=== PATIENT | female | born 1945 | race Caucasian/White ===

== ENCOUNTER 2017-02-23 16:15 | Outpatient (CLI) | payer MEDICARE | END 2017-02-23 16:16 | disposition home or self-care (01) | DX: Z79.899 Other long term (current) drug therapy (principal); M32.9 Systemic lupus erythematosus, unspecified ==

== ENCOUNTER 2017-04-10 13:40 | Emergency (ER) | payer MEDICARE ==
[2017-04-10 13:53] VITALS: BP 131/81
--- NOTE | 2017-04-10 14:24 | ED Physician Documentation ---
History of Present Illness - Stated complaint Stated Complaint: LT SHOULDER PX - Chief complaint Chief Complaint: Ext Problem - History obtained from History obtained from: Patient, Family - History of Present Illness Timing: How many weeks ago (1) Pain level max: 8 Pain level now: 5 Quality: aching, dull pain Improved by: rest Worsened by: movement - Additonal information Additional information: Patient is a 71-year-old female with complicated past medical history including breast cancer that had spread to 7 out of 15 lymph nodes in the left axilla. She was placed on chemotherapy and had radiation therapy to that left shoulder as well. Since that time she has had her left hip replaced, bilateral knees and right shoulder replaced. They wanted to replace her left shoulder, but were not sure that there was enough bone to hold a prosthesis in place. She was washing her hair approximately 1 week ago and felt a pop in the left shoulder. Now has bruising over that shoulder and down the left humerus. She contacted her orthopedist who is currently on vacation and was told to come here for x-rays. She also noticed dark stools 2 this week. No chest pain, shortness of breath, no lightheadedness. Review of Systems Constitutional: denies: Fever, Chills Nose: denies: Rhinorrhea / runny nose, Congestion Throat: denies: Sore throat Cardiac: denies: Chest pain / pressure Respiratory: denies: Cough GI: reports: Bloody / black stool (black stool for 2 days). denies: Abdominal Pain, Nausea, Vomiting, Diarrhea, Hematemesis Skin: denies: Rash Musculoskeletal: denies: Neck pain, Back pain Neurologic: denies: Headache PD PAST MEDICAL HISTORY - Past Medical History Past Medical History: Yes Other Past Medical History: lupus. breast ca - Past Surgical History Past Surgical History: Yes Ortho: Hip replacement, Shoulder arthroplasty - Present Medications Home Medications: Ambulatory Orders Medication Instructions Recorded Confirmed Candesartan Cilexetil 1 tab PO .FREQ 04/10/17 04/10/17 Carvedilol 50 mg PO DAILY 04/10/17 04/10/17 Felodipine [Felodipine ER] 1 tab PO DAILY 04/10/17 04/10/17 Hydroxychloroquine [Plaquenil] 400 mg PO DAILY 04/10/17 04/10/17 Lorazepam [Ativan] 1 tab PO TID 04/10/17 04/10/17 Omeprazole [PriLOSEC] 1 tab PO DAILY 04/10/17 04/10/17 Potassium Chloride 2.5 tab PO DAILY 04/10/17 04/10/17 Sertraline [Zoloft] 100 mg PO DAILY 04/10/17 04/10/17 - Allergies Allergies/Adverse Reactions: Allergies Allergy/AdvReac Type Severity Reaction Status Date / Time codeine Allergy Unknown Verified 04/10/17 13:53 prochlorperazine Allergy Unknown Verified 04/10/17 13:53 [From Compazine] prochlorperazine edisylate * Allergy Unknown Verified 04/10/17 13:53 [From Compazine] prochlorperazine maleate * Allergy Unknown Verified 04/10/17 13:53 [From Compazine] - Social History Does the pt smoke?: No Smoking Status: Never smoker Does the pt drink ETOH?: Yes Does the pt have substance abuse?: No - Immunizations Immunizations: TDAP >10years/unknown PD ED PE NORMAL - Vitals Vital signs reviewed: Yes - General General: Alert and oriented X 3, No acute distress - HEENT HEENT: Atraumatic, PERRL, Moist mucous membranes - Neck Neck: Supple, no meningeal sign, No bony TTP - Cardiac Cardiac: RRR - Respiratory Respiratory: No respiratory distress, Clear bilaterally - Abdomen Abdomen: Soft, Non tender, Non distended - Rectal Rectal: Other (normal rectal exam. Hemoccult negative. QC passed. 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 Crepitus with ROM of the glenohumeral joint. mild TTP over the anterior aspect of the glenohumeral joint. NVI.) - Neuro Neuro: Alert and oriented X 3 - Psych Psych: Normal mood, Normal affect Results - Vitals Vitals: Vital Signs - 24 hr 04/10/17 13:45 Temperature 37.3 C Heart Rate 68 Respiratory 18 Rate Blood Pressure 131/81 H O2 Saturation 100 Oxygen O2 Source Room air - Labs Labs: Laboratory Tests 04/10/17 04/10/17 04/10/17 14:30 14:30 14:30 WBC 3.7 L RBC 3.87 L Hgb 12.2 Hct 35.5 L MCV 91.8 MCH 31.5 H MCHC 34.3 RDW 13.5 Plt Count 215 MPV 7.6 L Neut # 2.5 Lymph # 0.6 L Sebastian # 0.4 Eos # 0.1 Baso # 0.0 Absolute Nucleated RBC 0.00 Nucleated RBCs 0.0 Manual Slide Review Indicated WBC Morphology 1+ REACTIVE LYMPHS Platelet Estimate NORMAL (130-450,000) Platelet Morphology NORMAL APPEARANCE RBC Morph Micro Appear NORMAL APPEARANCE PT 12.6 INR 1.1 APTT 30.2 Sodium 136 Potassium 4.6 Chloride 105 Carbon Dioxide 25 Anion Gap 6.0 BUN 24 H Creatinine 0.8 Estimated GFR (MDRD) 71 L Glucose 106 H Calcium 9.4 Total Bilirubin 0.8 AST 28 ALT 21 Alkaline Phosphatase 95 Total Protein 6.7 Albumin 4.3 Globulin 2.4 Albumin/Globulin Ratio 1.8 Lipase 32 - Rads (name of study) L shoulder xray Radiology: Prelim report reviewed, EMP read contemporaneously, See rad report ( No evidence of acute osseous abnormality. 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 No acute findings on x-ray. Placed in a sling and swath for comfort. Hemoccult testing of the stool is negative. Her hemoglobin is at her normal baseline levels. She declines any pain medication here or for home. She will follow-up with her doctor and her orthopedist this week for further evaluation and determination of what treatment they can provide her shoulder. Patient and family counseled regarding signs and symptoms for which I believe and urgent re- evaluation would be necessary. Patient with good understanding of and agreement to plan and is comfortable going home at this time This document was made in part using voice recognition software. While efforts are made to proofread this document, sound alike and grammatical errors may occur. Departure - Departure Disposition: 01 Home, Self Care Clinical Impression: Shoulder injury Qualifiers: Encounter type: initial encounter Laterality: left Qualified Code(s): S49.92XA - Unspecified injury of left shoulder and upper arm, initial encounter Instructions: ED Shoulder Pain [facility] Follow-Up: Samir Kearns MD [Primary Care Provider] - Within 1 week Comments: Wear the sling for the next 2-3 days. Return if you worsen. Start to gently move her shoulder after that. You do need to follow-up with your doctor and likely orthopedics for further evaluation. There are no acute findings on her x -ray today. If you continue to have dark stools, you should also be reevaluated. The testing for blood in your stool today was negative. Your blood pressure was elevated today on check in to the emergency department. This does not mean that you have hypertension, it is a common phenomenon to check into the emergency department and have elevated blood pressure. I recommend that you see your primary care physician within the week to have it rechecked when you're feeling better. Discharge Date/Time: 04/10/17 15:40
[2017-04-10 14:51] LABS: BASOPHILS % (AUTO) 1.1 %; EOSINOPHILS # (AUTO) 0.1 10^3/uL (0.0-0.7); HCT - HEMATOCRIT 35.5 % (37.0-47.0); HGB - HEMOGLOBIN 12.2 g/dL (12.0-16.0); LYMPHOCYTES # (AUTO) 0.6 10^3/uL (1.5-3.5); LYMPHOCYTES % (AUTO) 15.6 %; MEAN CORPUSCULAR HEMOGLOBIN 31.5 pg (27.0-31.0); MEAN CORPUSCULAR HGB CONC 34.3 g/dL (32.0-36.0); MEAN CORPUSCULAR VOLUME 91.8 fL (81.0-99.0); MEAN PLATELET VOLUME 7.6 fL (7.9-10.8); MONOCYTES # (AUTO) 0.4 10^3/uL (0.0-1.0); MONOCYTES % (AUTO) 10.5 %; NEUTROPHILS # (AUTO) 2.5 10^3/uL (1.5-6.6); NEUTROPHILS % (AUTO) 68.8 %; RED BLOOD COUNT 3.87 10^6/uL (4.20-5.40); RED CELL DISTRIBUTION WIDTH 13.5 % (12.0-15.0); UNCORRECTED WHITE BLOOD COUNT 3.7 x10^3/uL; WHITE BLOOD COUNT 3.7 x10^3/uL (4.8-10.8)
[2017-04-10 14:59] LABS: INR 1.1 (0.8-1.2); PT - PROTHROMBIN TIME 12.6 secs (9.9-12.6)
[2017-04-10 15:02] LABS: ALBUMIN/GLOBULIN RATIO 1.8 (1.0-2.2); BILIRUBIN,TOTAL 0.8 mg/dL (0.2-1.0); CALCIUM 9.4 mg/dL (8.5-10.3); CREATININE 0.8 mg/dL (0.4-1.0); POTASSIUM 4.6 mmol/L (3.5-5.0); TOTAL PROTEIN 6.7 g/dL (6.7-8.2)
[2017-04-10 15:06] LABS: PARTIAL THROMBOPLASTIN TIME 30.2 secs (24.9-33.3)
--- NOTE | 2017-04-10 15:16 | XRAY Preliminary Report ---
Exam: XR Humerus LT IMPRESSION: 1. No acute fracture or dislocation of the humerus. 2. Irregular sclerosis of the humeral head is noted which could be secondary to degenerative change. Infiltrative process such as metastasis is also possibility, although thought to be less likely. [facility] SITE ID: [id number]
--- NOTE | 2017-04-10 15:17 | XRAY Preliminary Report ---
Exam: XR Shoulder 3 View LT IMPRESSION: 1. No evidence of acute osseous abnormality. 2. 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 [facility] SITE ID: [id number]
--- NOTE | 2017-04-10 15:18 | XRAY Report ---
EXAM: LEFT HUMERUS RADIOGRAPHY EXAM DATE: 04/10/2017 03:06 PM. CLINICAL HISTORY: L humerus pain, ecchymosis. COMPARISON: None. TECHNIQUE: 2 views. FINDINGS: Bones: No acute fracture lines are seen. Irregular sclerosis with deformity at the humeral head may r epresent degenerative change. No focal destructive lesion is seen. Joints: Glenohumeral irregularity is noted. AC joint appears unremarkable. Soft Tissues: Normal. No soft tissue swelling. IMPRESSION: 1. No acute fracture or dislocation of the humerus. 2. Irregular sclerosis of the humeral head is noted which could be secondary to degenerative change. Infiltrative process such as metastasis is also possibility, although thought to BE less likely. [facility] Referring Provider Line: [phone] SITE ID: [id number]
--- NOTE | 2017-04-10 15:20 | XRAY Report ---
EXAM: LEFT SHOULDER RADIOGRAPHY EXAM DATE: 04/10/2017 03:05 PM. CLINICAL HISTORY: L shoulder pain x 1 week. COMPARISON: None. TECHNIQUE: 3 views. FINDINGS: Bones: No evidence of fracture. Joints: Severe chronic arthropathy of the shoulder is present characterized by marked remodeling of t he humeral head and glenoid. Little proliferative changes are seen, but probable chronic erosions are noted. Soft tissues: The visualized hemithorax is unremarkable. No soft tissue swelling. IMPRESSION: 1. No evidence of acute osseous abnormality. 2. 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 [facility] Referring Provider Line: [phone] SITE ID: [id number]
[2017-04-10 15:45] LABS: PLATELET ESTIMATE, MANUAL NORMAL (130-450,000) (NORMAL); PLATELET MORPHOLOGY NORMAL APPEARANCE (NORMAL); WBC MORPHOLOGY (MULTIPLE) 1+ REACTIVE LYMPHS (NORMAL)
== END 2017-04-10 15:40 | disposition home or self-care (01) ==
LOC: ED 13:40
DX: S49.92XA Unspecified injury of left shoulder and upper arm, initial encounter (principal); X58.XXXA Exposure to other specified factors, initial encounter; Y93.E8 Activity, other personal hygiene; C50.919 Malignant neoplasm of unspecified site of unspecified female breast; C77.3 Secondary and unspecified malignant neoplasm of axilla and upper limb lymph nodes; K92.1 Melena; R03.0 Elevated blood-pressure reading, without diagnosis of hypertension; Z92.21 Personal history of antineoplastic chemotherapy; Z92.3 Personal history of irradiation; Z96.653 Presence of artificial knee joint, bilateral; Z96.611 Presence of right artificial shoulder joint
CPT/HCPCS: 36415; 80053; 83690; 85025; 85610; 85730; 99283

== ENCOUNTER 2017-05-20 15:22 | Outpatient (CLI) | payer MEDICARE ==
[2017-05-20 16:05] LABS: BASOPHILS % (AUTO) 0.8 %; EOSINOPHILS # (AUTO) 0.2 10^3/uL (0.0-0.7); EOSINOPHILS % (AUTO) 4.4 %; HCT - HEMATOCRIT 36.9 % (37.0-47.0); HGB - HEMOGLOBIN 12.6 g/dL (12.0-16.0); LYMPHOCYTES # (AUTO) 0.8 10^3/uL (1.5-3.5); LYMPHOCYTES % (AUTO) 18.3 %; MEAN CORPUSCULAR HEMOGLOBIN 31.9 pg (27.0-31.0); MEAN CORPUSCULAR VOLUME 93.9 fL (81.0-99.0); MEAN PLATELET VOLUME 7.8 fL (7.9-10.8); MONOCYTES # (AUTO) 0.4 10^3/uL (0.0-1.0); MONOCYTES % (AUTO) 9.4 %; NEUTROPHILS % (AUTO) 67.1 %; NUCLEATED RED BLOOD CELLS AUTO 0.1 /100WBC; RED BLOOD COUNT 3.93 10^6/uL (4.20-5.40); UNCORRECTED WHITE BLOOD COUNT 4.5 x10^3/uL; WHITE BLOOD COUNT 4.5 x10^3/uL (4.8-10.8)
[2017-05-20 16:06] LABS: ALBUMIN/GLOBULIN RATIO 1.6 (1.0-2.2); BILIRUBIN,TOTAL 0.6 mg/dL (0.2-1.0); BUN - BLOOD UREA NITROGEN 32 mg/dL (6-20); CALCIUM 9.2 mg/dL (8.5-10.3); CARBON DIOXIDE - CO2 25 mmol/L (21-32); CHLORIDE 101 mmol/L (101-111); CREATININE 0.9 mg/dL (0.4-1.0); GFR - MDRD 62 (>89); GLUCOSE 89 mg/dL (70-100); POTASSIUM 4.6 mmol/L (3.5-5.0); SODIUM 133 mmol/L (135-145); TOTAL PROTEIN 7.1 g/dL (6.7-8.2)
[2017-05-20 16:49] LABS: BILIRUBIN,URINE NEGATIVE (NEGATIVE)
== END 2017-05-20 15:23 | disposition home or self-care (01) ==
LOC: LAB 15:22
PROVIDERS: ATTEND Internal Medicine
DX: M32.9 Systemic lupus erythematosus, unspecified (principal); Z79.899 Other long term (current) drug therapy
CPT/HCPCS: 36415; 80053; 81003; 85025; 85651; 86140

== ENCOUNTER 2017-08-08 16:44 | Outpatient (CLI) | payer MEDICARE | END 2017-08-08 16:45 | disposition critical access hospital (66) | LOC: EMS 16:44 | PROVIDERS: ATTEND Surgery | DX: R55 Syncope and collapse (principal); R11.0 Nausea | CPT/HCPCS: A0425; A0429 ==

== ENCOUNTER 2017-08-08 16:54 | Emergency (ER) | payer MEDICARE ==
--- NOTE | 2017-08-08 17:12 | ED Physician Documentation ---
PD HPI SYNCOPE - Stated complaint Stated Complaint: NEAR SYNCOPE - History obtained from History obtained from: Patient - History of Present Illness Witnessed: Witnessed (caregiver) Timing - onset: Today Duration: Minutes Preceding symptoms: Generalized weakness. No: Headache, Chest pain, Palpitations Associated symptoms: Dyspnea. No: Headache, Chest pain, Palpitations Contributing factors: Just stood up, Other (UTI symptoms). No: Recent med change, Decreased PO intake Injury occurred: No: Fell, Head injury Similar symptoms before: No diagnosis Recently seen: Clinic (UTI) Review of Systems Ten Systems: 10 systems reviewed and negative Constitutional: denies: Fever, Chills Nose: denies: Rhinorrhea / runny nose, Congestion Throat: denies: Sore throat Cardiac: denies: Chest pain / pressure, Palpitations Respiratory: denies: Cough GI: reports: Nausea. denies: Abdominal Pain, Vomiting, Diarrhea : reports: Dysuria Skin: denies: Rash, Lesions Neurologic: reports: Generalized weakness. 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 Psych: Anxiety - Past Surgical History Past Surgical History: Yes General: Other Ortho: Hip replacement, Shoulder arthroplasty - Present Medications Home Medications: Ambulatory Orders Medication Instructions Recorded Confirmed Candesartan Cilexetil 1 tab PO .FREQ 04/10/17 08/08/17 Carvedilol 50 mg PO DAILY 04/10/17 08/08/17 Felodipine [Felodipine ER] 1 tab PO DAILY 04/10/17 08/08/17 Hydroxychloroquine [Plaquenil] 400 mg PO BID 04/10/17 08/08/17 Lorazepam [Ativan] 1 tab PO TID 04/10/17 08/08/17 Omeprazole [PriLOSEC] 1 tab PO DAILY 04/10/17 08/08/17 Potassium Chloride 2.5 tab PO DAILY 04/10/17 08/08/17 Sertraline [Zoloft] 100 mg PO DAILY 04/10/17 08/08/17 - Allergies Allergies/Adverse Reactions: Allergies Allergy/AdvReac Type Severity Reaction Status Date / Time codeine Allergy Unknown Verified 08/08/17 17:15 prochlorperazine Allergy Unknown Verified 08/08/17 17:15 [From Compazine] prochlorperazine edisylate * Allergy Unknown Verified 08/08/17 17:15 [From Compazine] prochlorperazine maleate * Allergy Unknown Verified 08/08/17 17:15 [From Encore Alertazine] - Social History Does the pt smoke?: No Smoking Status: Never smoker Does the pt drink ETOH?: Yes Does the pt have substance abuse?: No - Immunizations Immunizations: TDAP >10years/unknown PD ED PE NORMAL - Vitals Vital signs reviewed: Yes - General General: Alert and oriented X 3, No acute distress, Well developed/nourished - HEENT HEENT: Atraumatic, Moist mucous membranes, Pharynx benign - Neck Neck: Supple, no meningeal sign, No adenopathy - Cardiac Cardiac: RRR, No murmur - Respiratory Respiratory: Clear bilaterally - Abdomen Abdomen: Soft, Non tender - Female Female : Deferred - Rectal Rectal: Deferred - Back Back: No CVA TTP - Derm Derm: Normal color, Warm and dry - Extremities Extremities: No tenderness to palpate, No edema, No calf tenderness / cord - Neuro Neuro: Alert and oriented X 3, No motor deficit, Normal speech Results - Vitals Vitals: Oxygen O2 Source Room air - Labs Labs: Laboratory Tests 08/08/17 08/08/17 08/08/17 18:35 18:35 18:35 WBC 5.1 RBC 4.04 L Hgb 12.6 Hct 37.5 MCV 92.8 MCH 31.1 H MCHC 33.5 RDW 13.8 Plt Count 213 MPV 7.1 L Neut # 4.1 Lymph # 0.6 L [place] # 0.3 Eos # 0.1 Baso # 0.0 Absolute Nucleated RBC 0.00 Nucleated RBC % 0.0 Sodium 132 L Potassium 4.3 Chloride 98 L Carbon Dioxide 24 Anion Gap 10.0 BUN 33 H Creatinine 0.8 Estimated GFR (MDRD) 71 L Glucose 94 Calcium 9.4 Magnesium 1.9 Total Bilirubin 0.6 AST 30 ALT 24 Alkaline Phosphatase 84 Troponin I < 0.04 Total Protein 6.8 Albumin 4.4 Globulin 2.4 Albumin/Globulin Ratio 1.8 Lipase 33 Departure - Departure Disposition: 01 Home, Self Care Clinical Impression: Near syncope Condition: Stable Record reviewed to determine appropriate education?: Yes Instructions: ED Near Syncope Unkn Follow-Up: Samir Kearns MD [Primary Care Provider] - Comments: I would hold your felodipine for now. Continue other medications. Contact your primary care to discuss the idea of a Holter monitor for 7 or even the 30 day version to see if you do have any episodic abnormal rhythms. At this point would consider the idea of a overly effective blood pressure medicines and just decreased the dosing as they are. Stay well-hydrated. Recheck if recurrent or worsening symptoms. Discharge Date/Time: 08/08/17 20:30
[2017-08-08 18:41] LABS: BASOPHILS % (AUTO) 0.5 %; EOSINOPHILS # (AUTO) 0.1 10^3/uL (0.0-0.7); EOSINOPHILS % (AUTO) 2.3 %; HCT - HEMATOCRIT 37.5 % (37.0-47.0); HGB - HEMOGLOBIN 12.6 g/dL (12.0-16.0); LYMPHOCYTES # (AUTO) 0.6 10^3/uL (1.5-3.5); LYMPHOCYTES % (AUTO) 11.1 %; MEAN CORPUSCULAR HEMOGLOBIN 31.1 pg (27.0-31.0); MEAN CORPUSCULAR HGB CONC 33.5 g/dL (32.0-36.0); MEAN CORPUSCULAR VOLUME 92.8 fL (81.0-99.0); MEAN PLATELET VOLUME 7.1 fL (7.9-10.8); MONOCYTES # (AUTO) 0.3 10^3/uL (0.0-1.0); MONOCYTES % (AUTO) 6.7 %; NEUTROPHILS # (AUTO) 4.1 10^3/uL (1.5-6.6); NEUTROPHILS % (AUTO) 79.4 %; RED BLOOD COUNT 4.04 10^6/uL (4.20-5.40); RED CELL DISTRIBUTION WIDTH 13.8 % (12.0-15.0); UNCORRECTED WHITE BLOOD COUNT 5.1 x10^3/uL; WHITE BLOOD COUNT 5.1 x10^3/uL (4.8-10.8)
[2017-08-08 18:54] LABS: ALBUMIN/GLOBULIN RATIO 1.8 (1.0-2.2); BILIRUBIN,TOTAL 0.6 mg/dL (0.2-1.0); CALCIUM 9.4 mg/dL (8.5-10.3); CREATININE 0.8 mg/dL (0.4-1.0); MAGNESIUM 1.9 mg/dL (1.7-2.8); POTASSIUM 4.3 mmol/L (3.5-5.0); TOTAL PROTEIN 6.8 g/dL (6.7-8.2)
[2017-08-08 19:13] VITALS: BP 139/82
== END 2017-08-08 20:30 | disposition home or self-care (01) ==
LOC: EDBD → ED 16:54
DX: R55 Syncope and collapse (principal); M32.9 Systemic lupus erythematosus, unspecified; Z85.3 Personal history of malignant neoplasm of breast
CPT/HCPCS: 36415; 80053; 83690; 83735; 84484; 85025; 93005; 99283; 99284

== ENCOUNTER 2022-08-10 16:31 | Emergency (ER) | payer MEDICARE ==
[2022-08-10] MEDS ORDERED: METOPROLOL 5 MG/5 ML VIAL IVP STA (17:05)
--- NOTE | 2022-08-10 17:07 | ED Physician Documentation ---
PD HPI DYSPNEA - Stated complaint Stated Complaint: IRREGULAR HR/TROUBLE BREATHING - History obtained from History obtained from: Patient - Additional information Additional information: 76-year-old woman with history of hypertension, hyperlipidemia, lupus, perioperative atrial fibrillation in 2012, history of ruptured diverticulitis necessitating open resection and remote history of breast cancer status postchemotherapy and radiation with resultant lymphedema on the left side presents with a weeks worth of severe exertional dyspnea with chest pressure. She denies pedal edema or calf pain. She has trouble going up and down the stai rs in her house now because of the shortness of breath. Review of Systems Ten Systems: 10 systems reviewed and negative Constitutional: reports: Fatigue Cardiac: reports: Chest pain / pressure. 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 Psych: Anxiety - Past Surgical History Past Surgical History: Yes General: Other Ortho: Hip replacement, Shoulder arthroplasty - Present Medications Home Medications: Ambulatory Orders Medication Instructions Recorded Confirmed Candesartan Cilexetil 1 tab PO .FREQ 04/10/17 08/08/17 Felodipine [Felodipine ER] 1 tab PO DAILY 04/10/17 08/08/17 Hydroxychloroquine [Plaquenil] 400 mg PO BID 04/10/17 08/08/17 Lorazepam [Ativan] 1 tab PO TID 04/10/17 08/08/17 Omeprazole [PriLOSEC] 1 tab PO DAILY 04/10/17 08/08/17 Potassium Chloride 2.5 tab PO DAILY 04/10/17 08/08/17 Sertraline [Zoloft] 100 mg PO DAILY 04/10/17 08/08/17 carvediloL [Carvedilol] 50 mg PO DAILY 04/10/17 08/08/17 - Allergies Allergies/Adverse Reactions: Allergies Allergy/AdvReac Type Severity Reaction Status Date / Time codeine Allergy Unknown Verified 08/08/17 17:15 prochlorperazine Allergy Unknown Verified 08/08/17 17:15 [From Compazine] prochlorperazine edisylate * Allergy Unknown Verified 08/08/17 17:15 [From Compazine] prochlorperazine maleate * Allergy Unknown Verified 08/08/17 17:15 [From Compazine] - Social History Does the pt smoke?: No Smoking Status: Never smoker Does the pt drink ETOH?: Yes Does the pt have substance abuse?: No - Immunizations Immunizations are current?: No Immunizations: TDAP >10years/unknown PD ED PE NORMAL - Vitals Vital signs reviewed: Yes - General General: Alert and oriented X 3, No acute distress - HEENT HEENT: PERRL, EOMI - Neck Neck: Supple, no meningeal sign, No bony TTP - Cardiac Cardiac: No murmur, Other (Irregularly irregular without murmur) - Respiratory Respiratory: No respiratory distress, Clear bilaterally - Abdomen Abdomen: Normal bowel sounds, Soft, Non tender - Back Back: No CVA TTP, No spinal TTP - Derm Derm: Normal color, Warm and dry - Extremities Extremities: No edema (Of the lower extremities), No calf tenderness / cord, Other (Lymphedema of the left upper extremity with bruising about the shoulder) - Neuro Neuro: Alert and oriented X 3, Normal speech Results - Vitals Vitals: Vital Signs - 24 hr 08/10/22 08/10/22 08/10/22 16:44 17:36 18:06 Temperature 37.2 C Heart Rate 92 88 110 H Respiratory 18 24 12 Rate Blood Pressure 153/111 H 139/96 H 152/116 H O2 Saturation 99 93 92 08/10/22 08/10/22 08/10/22 18:30 19:36 19:47 Temperature Heart Rate 81 95 Respiratory 19 17 20 Rate Blood Pressure 125/104 H O2 Saturation 93 96 Oxygen O2 Source Room air - EKG (time done) 1646 Rate: Rate (enter#) (76) Rhythm: Atrial flutter [place]: Normal Intervals: Prolonged QT (borderline qc 486) QRS: Normal Ischemia: Non specific changes. No: ST elevation c/w ischemia, ST depression 1814 Rate: Rate (enter#) (82) Rhythm: Atrial fibrillation [place]: Normal QRS: Normal Ischemia: Q waves (septal). No: ST elevation c/w ischemia, ST depression - Labs Labs: Laboratory Tests 08/10/22 08/10/22 08/10/22 17:17 17:17 17:17 WBC 5.1 RBC 3.79 L Hgb 11.8 L Hct 36.7 L MCV 96.8 MCH 31.1 H MCHC 32.2 RDW 15.0 Plt Count 231 MPV 9.0 Neut # (Auto) 3.5 Lymph # (Auto) 1.1 L Whitman # (Auto) 0.4 Eos # (Auto) 0.1 Baso # (Auto) 0.0 Absolute Nucleated RBC 0.00 Band Neuts % (Manual) Not Reportable Abnorm Lymph % (Manual) Not Reportable Nucleated RBC % 0.0 Neutrophils # (Manual) Not Reportable Lymphocytes # (Manual) Not Reportable Monocytes # (Manual) Not Reportable Eosinophils # (Manual) Not Reportable Basophils # (Manual) Not Reportable Differential Comment MANUAL=AUTO DIFF Manual Slide Review Indicated WBC Morphology 1+ TOXIC GRANULATION Platelet Estimate NORMAL (130-450,000) Platelet Morphology NORMAL APPEARANCE RBC Morph Micro Appear NORMAL APPEARANCE D-Dimer 345.0 H Sodium 136 Potassium 3.9 Chloride 100 L Carbon Dioxide 24 Anion Gap 12.0 BUN 26 H Creatinine 0.7 Estimated GFR (MDRD) 81 L Glucose 97 Calcium 9.2 Total Bilirubin 0.6 AST 37 ALT 30 Alkaline Phosphatase 111 Troponin I High Sens B-Natriuretic Peptide Total Protein 6.8 Albumin 4.3 Globulin 2.5 Albumin/Globulin Ratio 1.7 Lipase 35 TSH 08/10/22 08/10/22 08/10/22 17:17 17:17 17:17 WBC RBC Hgb Hct MCV MCH MCHC RDW Plt Count MPV Neut # (Auto) Lymph # (Auto) [place] # (Auto) Eos # (Auto) Baso # (Auto) Absolute Nucleated RBC Band Neuts % (Manual) Abnorm Lymph % (Manual) Nucleated RBC % Neutrophils # (Manual) Lymphocytes # (Manual) Monocytes # (Manual) Eosinophils # (Manual) Basophils # (Manual) Differential Comment Manual Slide Review WBC Morphology Platelet Estimate Platelet Morphology RBC Morph Micro Appear D-Dimer Sodium Potassium Chloride Carbon Dioxide Anion Gap BUN Creatinine Estimated GFR (MDRD) Glucose Calcium Total Bilirubin AST ALT Alkaline Phosphatase Troponin I High Sens 26.8 H* B-Natriuretic Peptide 630 H Total Protein Albumin Globulin Albumin/Globulin Ratio Lipase TSH 2.94 08/10/22 18:49 WBC RBC Hgb Hct MCV MCH MCHC RDW Plt Count MPV Neut # (Auto) Lymph # (Auto) [place] # (Auto) Eos # (Auto) Baso # (Auto) Absolute Nucleated RBC Band Neuts % (Manual) Abnorm Lymph % (Manual) Nucleated RBC % Neutrophils # (Manual) Lymphocytes # (Manual) Monocytes # (Manual) Eosinophils # (Manual) Basophils # (Manual) Differential Comment Manual Slide Review WBC Morphology Platelet Estimate Platelet Morphology RBC Morph Micro Appear D-Dimer Sodium Potassium Chloride Carbon Dioxide Anion Gap BUN Creatinine Estimated GFR (MDRD) Glucose Calcium Total Bilirubin AST ALT Alkaline Phosphatase Troponin I High Sens 39.4 H* B-Natriuretic Peptide Total Protein Albumin Globulin Albumin/Globulin Ratio Lipase TSH - Rads (name of study) Single view chest x-ray demonstrates cardiomegaly and pulmonary vascular congestion with mild pulmonary edema. Radiology: EMP read contemporaneously PD MEDICAL DECISION MAKING - ED course ED course: 76-year-old woman who had an episode of perioperative atrial fibrillation 10 years ago now presents with breathlessness for the last week or so. She is in atrial flutter here and her x-ray shows some cardiomegaly with evidence of CHF corroborated by an elevated BNP of 630. Her CBC is basically normal save for modest anemia with a hemoglobin of 11.8, and she does have a positive D-dimer at 345. She was initially administered some metoprolol and this was followed by 40 mg of IV Lasix given the evidence of CHF. At about 6:15 PM I reassessed her and she was having some increasing chest pressure and her EKG will be repeated. Her troponin is very modestly elevated at 26 with a high end of normal being about 20. Given the elevated D-dimer I will send her for CT angiogram although my pretest probability suspicion for pulmonary embolism is low. She is concerned about anticoagulation because she already bruises easily. I discussed the case by phone with Dr. Yeimy Gill, who is partners with her pump technician, Dr. Rollins at [facility]. He recommended transfer to a cath capable facility given the rising troponin and treatment for non-STEMI in the interim. Her regular meds were ordered as well as Lovenox. She declined aspirin therapy as she takes Excedrin which contains aspirin daily. I discussed with her that given the need for specialty hospital transfer and current bed capacity in [facility] the length of stay in the emergency department pending transfer would likely be measured in days. - Critical Care Time(min): 40 Time Includes: Direct patient care, Review records, Reassess patient, Document care, Coordinate care, Medical consult, Family consult for tx dec Data interpretation: Labs, Pulse ox Procedures included in critical care time: Peripheral IV Procedures excluded from critical care time: EKG Departure - Departure Disposition: 02 Transfer Acute Care Hosp Clinical Impression: NSTEMI (non-ST elevated myocardial infarction), Afib, CHF (congestive heart failure) Condition: Serious
[2022-08-10 17:25] LABS: BASOPHILS % (AUTO) 0.4 %; EOSINOPHILS # (AUTO) 0.1 10^3/uL (0.0-0.7); EOSINOPHILS % (AUTO) 2.6 %; HCT - HEMATOCRIT 36.7 % (37.0-47.0); HGB - HEMOGLOBIN 11.8 g/dL (12.0-16.0); LYMPHOCYTES # (AUTO) 1.1 10^3/uL (1.5-3.5); LYMPHOCYTES % (AUTO) 21.2 %; MEAN CORPUSCULAR HEMOGLOBIN 31.1 pg (27.0-31.0); MEAN CORPUSCULAR HGB CONC 32.2 g/dL (32.0-36.0); MEAN CORPUSCULAR VOLUME 96.8 fL (81.0-99.0); MONOCYTES # (AUTO) 0.4 10^3/uL (0.0-1.0); MONOCYTES % (AUTO) 7.3 %; NEUTROPHILS # (AUTO) 3.5 10^3/uL (1.5-6.6); NEUTROPHILS % (AUTO) 68.3 %; PLT - PLATELET COUNT 231 10^3/uL (130-450); RED BLOOD COUNT 3.79 10^6/uL (4.20-5.40); WHITE BLOOD COUNT 5.1 x10^3/uL (4.8-10.8)
[2022-08-10 17:34] LABS: SLIDE REVIEW? Indicated
--- NOTE | 2022-08-10 17:38 | XRAY Report ---
PROCEDURE: Chest 1 View X-Ray INDICATIONS: Chest Pain TECHNIQUE: One view of the chest was acquired. COMPARISON: None FINDINGS: Surgical changes and devices: There is prior right shoulder arthroplasty with postsurgical changes.. Lungs and pleura: There is pulmonary vascular congestion. Mild pulmonary edema is also seen. No defi nite focal infiltrate. No pleural effusion or gross pneumothorax.. Mediastinum: Mildly tortuous thoracic aorta is seen. Heart size is enlarged. Bones and chest wall: No suspicious bony lesions. Severe left glenohumeral joint osteoarthritic ndiaye ges are noted. Overlying soft tissues appear unremarkable. IMPRESSION: 1. Cardiomegaly and pulmonary vascular congestion with mild pulmonary edema. No definite focal infilt rate. No pleural effusion or pneumothorax. 2. Incidentally noted of severe left shoulder joint osteoarthritis. Prior right shoulder arthroplasty . Reviewed by: Amarjit Harrison MD on 08/10/2022 5:36 PM PDT Approved by: Amarjit Harrison MD on 08/10/2022 5:36 PM PDT Station ID: [id number]
[2022-08-10 17:55] LABS: DIFFERENTIAL COMMENT MANUAL=AUTO DIFF; PLATELET ESTIMATE, MANUAL NORMAL (130-450,000) (NORMAL); PLATELET MORPHOLOGY NORMAL APPEARANCE (NORMAL); RBC MORPHOLOGY (MULTIPLE) NORMAL APPEARANCE (NORMAL); WBC MORPHOLOGY (MULTIPLE) 1+ TOXIC GRANULATION (NORMAL)
[2022-08-10 18:06] LABS: ALBUMIN 4.3 g/dL (3.2-5.5); ALBUMIN/GLOBULIN RATIO 1.7 (1.0-2.2); BILIRUBIN,TOTAL 0.6 mg/dL (0.2-1.0); CALCIUM 9.2 mg/dL (8.5-10.3); CREATININE 0.7 mg/dL (0.4-1.0); POTASSIUM 3.9 mmol/L (3.5-5.0); TOTAL PROTEIN 6.8 g/dL (6.7-8.2)
[2022-08-10] MEDS ORDERED: FUROSEMIDE 40 MG/4 ML VIAL IVP STA (18:07)
[2022-08-10] MEDS ORDERED: iohexoL-300 100 ML VIAL ONE (18:29)
[2022-08-10] MEDS ORDERED: ASPIRIN CHEW 81 MG TABLET PO STA (19:23)
[2022-08-10] MEDS: ATORVASTATIN 40 MG TABLET PO SCH (19:52)
--- NOTE | 2022-08-10 20:08 | CT Report ---
PROCEDURE: ANGIO CHEST W/WO INDICATIONS: Dyspnea, high D-dimer, PE protocol CONTRAST: Omni 300 80ml TECHNIQUE: After the administration of intravenous contrast, 2 mm axial images were acquired from the pulmonary apices to the posterior costophrenic angles during the arterial phase. In addition, 1 mm lung kernel and 5 mm soft tissue kernel reconstructions were performed. 3-dimensional coronal oblique maximum int ensity projection (MIP) reformats, 8 mm axial MIP, and 5 mm coronal and sagittal MPR reformats were t hen performed through the thorax. For radiation dose reduction, the following was used: automated exp osure control, adjustment of mA and/or kV according to patient size. COMPARISON: Chest radiograph on the same day. FINDINGS: Image quality: Excellent. Pulmonary arteries: Pulmonary arteries are normal in size, and demonstrate no intraluminal filling d efects to suggest central pulmonary embolism. Lungs and pleura: There is biapical scarring. Scattered atelectasis in periphery of bilateral lung fi elds are seen. Hazy groundglass opacities are also seen scattered in bilateral lung mackey. Interstit ial reticular nodular thickening in periphery of bilateral lung mackey also seen. No pleural effusion s or pneumothorax. Central and peripheral airways are patent. Mediastinum: Heart size is enlarged, without pericardial effusion. Prominent mediastinal and hilar l ymph nodes are seen. Thoracic aorta is normal in caliber and enhancement. Esophagus is normal in kemal iber, with a small to moderate-sized hiatal hernia. Bones and chest wall: No suspicious bony lesions. No suspicious bony lesion. No acute vertebral body compression fracture. Degenerative disc disease throughout thoracic spine is seen. No axillary or harper praclavicular adenopathy. The thyroid is normal in size and there are no incidental findings. Abdomen: Visualized upper abdominal solid organs appear normal in the early arterial phase of enhanc ement. IMPRESSION: 1. No evidence of pulmonary emboli. 2. Interstitial reticular nodular thickening in periphery of bilateral lung mackey suggestive of deve loping pulmonary fibrosis. Hazy groundglass opacities scattered in bilateral lung mackey suggestive o f of mild pulmonary edema versus pneumonitis. No focal infiltrate. No pleural effusion or pneumothora x. 3. Cardiomegaly. Enlarged mediastinal and hilar lymph nodes which is nonspecific, and may represent m ild reactive inflammatory nodes. Small to moderate size hiatal hernia. CLINICAL RECOMMENDATION STATEMENTS: In patients <35 years with an ITN detected on CT, MRI, or extrathyroidal ultrasound, the Committee re commends further evaluation with dedicated thyroid ultrasound if the nodule is "e1 cm and has no susp icious imaging features, and if the patient has normal life expectancy. In patients "e35 years with an ITN detected on CT, MRI, or extrathyroidal ultrasound, the Committee r ecommends further evaluation with dedicated thyroid ultrasound if the nodule is "e1.5 cm and has no s uspicious imaging features, and if the patient has normal life expectancy. (ACR, 2014) Reviewed by: Amarjit Harrison MD on 08/10/2022 8:07 PM PDT Approved by: Amarjit Harrison MD on 08/10/2022 8:07 PM PDT Station ID: [id number]
[2022-08-10] MEDS: HYDROXYCHLOROQUINE 200 MG TABLET PO SCH (21:30)
[2022-08-10] MEDS: SERTRALINE 50 MG TABLET PO SCH (21:30)
[2022-08-10] MEDS: ENOXAPARIN 80 MG/0.8 ML SYRINGE SUBQ SCH (21:30)
[2022-08-10] MEDS: POTASSIUM CHLORIDE 20 MEQ TABLET PO SCH (21:30)
[2022-08-10] MEDS: LORazepam 1 MG TABLET PO SCH (21:30)
[2022-08-10] MEDS: carvediloL 12.5 MG TABLET PO SCH (21:58)
[2022-08-10] MEDS ORDERED: iohexoL-300 100 ML VIAL IVP ONE (23:06)
[2022-08-11] MEDS ORDERED: ONDANSETRON 4 MG/2 ML VIAL IVP STA (00:31)
[2022-08-11 05:22] LABS: BASOPHILS % (AUTO) 0.4 %; EOSINOPHILS # (AUTO) 0.2 10^3/uL (0.0-0.7); EOSINOPHILS % (AUTO) 2.7 %; HGB - HEMOGLOBIN 11.5 g/dL (12.0-16.0); LYMPHOCYTES # (AUTO) 1.6 10^3/uL (1.5-3.5); LYMPHOCYTES % (AUTO) 27.7 %; MEAN CORPUSCULAR HEMOGLOBIN 31.6 pg (27.0-31.0); MEAN CORPUSCULAR HGB CONC 32.9 g/dL (32.0-36.0); MEAN CORPUSCULAR VOLUME 96.2 fL (81.0-99.0); MEAN PLATELET VOLUME 9.2 fL (7.9-10.8); MONOCYTES # (AUTO) 0.5 10^3/uL (0.0-1.0); MONOCYTES % (AUTO) 9.6 %; NEUTROPHILS # (AUTO) 3.4 10^3/uL (1.5-6.6); NEUTROPHILS % (AUTO) 59.4 %; PLT - PLATELET COUNT 213 10^3/uL (130-450); RED BLOOD COUNT 3.64 10^6/uL (4.20-5.40); RED CELL DISTRIBUTION WIDTH 14.9 % (12.0-15.0); WHITE BLOOD COUNT 5.6 x10^3/uL (4.8-10.8)
[2022-08-11 05:29] LABS: CALCIUM 9.1 mg/dL (8.5-10.3); CREATININE 0.7 mg/dL (0.4-1.0); POTASSIUM 3.1 mmol/L (3.5-5.0)
[2022-08-11] MEDS ORDERED: POTASSIUM CHLORIDE 20 MEQ TABLET PO STA (07:23)
[2022-08-11] MEDS: amLODIPine 5 MG TABLET PO SCH (08:59)
[2022-08-11] MEDS: FUROSEMIDE 20 MG TABLET PO SCH (08:59)
[2022-08-11] MEDS: ENOXAPARIN 80 MG/0.8 ML SYRINGE SUBQ SCH ×2 (09:00→21:07)
[2022-08-11] MEDS ORDERED: ASPIRIN CHEW 81 MG TABLET PO SCH (09:00)
[2022-08-11] MEDS: carvediloL 12.5 MG TABLET PO SCH ×2 (09:00→21:06)
[2022-08-11] MEDS: LOSARTAN 50 MG TABLET PO SCH (09:00)
[2022-08-11] MEDS: PANTOPRAZOLE 40 MG TABLET PO SCH (09:00)
[2022-08-11] MEDS: ATORVASTATIN 40 MG TABLET PO SCH (09:00)
[2022-08-11] MEDS: POTASSIUM CHLORIDE 20 MEQ TABLET PO SCH ×2 (09:01→21:07)
[2022-08-11] MEDS: HYDROXYCHLOROQUINE 200 MG TABLET PO SCH ×2 (09:09→21:07)
[2022-08-11] MEDS ORDERED: ONDANSETRON ODT 4 MG TABLET TL STA (11:23)
--- NOTE | 2022-08-11 11:50 | ED Physician Documentation ---
ED Addendum - Addendum Addendum: S - Patient was seen on morning rounds. She denies having any chest pain and was able to get a little sleep last night. She denies any difficulty breathing and reports having a large amount of urination from the Lasix. O - Lungs clear, Normal heart rate - Pulses irregularly irregular. Appears comfortable. A - NSTEMI, A. fib. Hypokalemia. P - Pending transfer to facility with cardiology capabilities.Echo was also ordered for this morning.Potassium ordered for p.o. replacement
[2022-08-11] MEDS: SERTRALINE 50 MG TABLET PO SCH (21:07)
[2022-08-11] MEDS: LORazepam 1 MG TABLET PO SCH (21:07)
[2022-08-11] MEDS: ONDANSETRON ODT 4 MG TABLET TL PRN (21:13)
[2022-08-11] MEDS ORDERED: LIDOCAINE PATCH 5% TOP STA (23:41)
[2022-08-12] MEDS ORDERED: NITROGLYCERIN SL 0.4 MG TABLET SL STA (00:14)
[2022-08-12] MEDS ORDERED: MORPHINE 2 MG/ML CARPUJECT IVP STA ×6 (00:30→17:34)
[2022-08-12] MEDS: ONDANSETRON ODT 4 MG TABLET TL PRN ×3 (03:55→18:00)
[2022-08-12 05:46] LABS: BASOPHILS % (AUTO) 0.4 %; EOSINOPHILS # (AUTO) 0.1 10^3/uL (0.0-0.7); EOSINOPHILS % (AUTO) 1.9 %; HCT - HEMATOCRIT 39.7 % (37.0-47.0); HGB - HEMOGLOBIN 12.9 g/dL (12.0-16.0); LYMPHOCYTES # (AUTO) 0.8 10^3/uL (1.5-3.5); LYMPHOCYTES % (AUTO) 11.3 %; MEAN CORPUSCULAR HEMOGLOBIN 31.5 pg (27.0-31.0); MEAN CORPUSCULAR HGB CONC 32.5 g/dL (32.0-36.0); MEAN CORPUSCULAR VOLUME 97.1 fL (81.0-99.0); MEAN PLATELET VOLUME 9.1 fL (7.9-10.8); MONOCYTES # (AUTO) 0.5 10^3/uL (0.0-1.0); MONOCYTES % (AUTO) 7.1 %; NEUTROPHILS # (AUTO) 5.4 10^3/uL (1.5-6.6); PLT - PLATELET COUNT 227 10^3/uL (130-450); RED BLOOD COUNT 4.09 10^6/uL (4.20-5.40); RED CELL DISTRIBUTION WIDTH 14.6 % (12.0-15.0); WHITE BLOOD COUNT 6.8 x10^3/uL (4.8-10.8)
[2022-08-12 05:56] LABS: CALCIUM 9.2 mg/dL (8.5-10.3); CREATININE 0.6 mg/dL (0.4-1.0); POTASSIUM 3.3 mmol/L (3.5-5.0)
[2022-08-12] MEDS ORDERED: oxyCODONE 5 MG TABLET PO STA ×2 (08:13→15:00)
--- NOTE | 2022-08-12 08:41 | ED Physician Documentation ---
ED Addendum - Addendum Addendum: Subjective:Patient's primary complaint this morning is of left shoulder pain. She has a history of chronic shoulder issues with the left shoulder and is not a candidate for shoulder replacement.Her pain in the shoulder has been worsening last night and does not radiate. She did mention this to the overnight physician who evaluated her, repeated an EKG and troponin level. She was also given morphine with some improvement in her pain. She had an echocardiogram done yesterday that demonstrated moderate concentric left ventricular hypertrophy. Overall left ventricular systolic function is normal with an ejection fraction of 60 to 65%. Indeterminate left ventricular filling pattern due to atrial fibrillation. No regional wall motion abnormalities are seen. Objective:Significant bruising to left shoulder into left Upper arm that is deep purple with yellowing (Noticed on initial evaluation a few days ago). Strong radial pulse. Lungs are clear.Remains in A. fib on the air sampling and monitoring. Assessment: NSTEMI. Afib. Chronic L shoulder pain. 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
[2022-08-12] MEDS: ATORVASTATIN 40 MG TABLET PO SCH ×2 (08:48→08:49)
[2022-08-12] MEDS: POTASSIUM CHLORIDE 20 MEQ TABLET PO SCH ×2 (08:48→21:49)
[2022-08-12] MEDS: ENOXAPARIN 80 MG/0.8 ML SYRINGE SUBQ SCH ×2 (08:49→21:49)
[2022-08-12] MEDS: PANTOPRAZOLE 40 MG TABLET PO SCH (08:49)
[2022-08-12] MEDS: amLODIPine 5 MG TABLET PO SCH (08:49)
[2022-08-12] MEDS: carvediloL 12.5 MG TABLET PO SCH ×2 (08:49→21:49)
[2022-08-12] MEDS: FUROSEMIDE 20 MG TABLET PO SCH (08:49)
[2022-08-12] MEDS: LOSARTAN 50 MG TABLET PO SCH (08:49)
[2022-08-12] MEDS: HYDROXYCHLOROQUINE 200 MG TABLET PO SCH ×2 (08:50→21:49)
--- NOTE | 2022-08-12 10:40 | XRAY Report ---
PROCEDURE: Shoulder 3 View LT INDICATIONS: pain TECHNIQUE: 3 views of the shoulder were acquired. COMPARISON: None. 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 There is marke sharon remodeling and flattening of the articular surfaces with wide separation. Areas of lytic/erosive change in the glenoid and superior/medial humeral head are present. There is no fracture. There is a probable joint effusion. IMPRESSION: Bone loss and remodeling in the glenoid and adjacent scapula as well as in the humeral head and proxi mal humeral neck. 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 Reviewed by: Fernandez Aldridge MD on 08/12/2022 10:39 AM PDT Approved by: Fernandez Aldridge MD on 08/12/2022 10:39 AM PDT Station ID: [id number]
[2022-08-12] MEDS: LORazepam 1 MG TABLET PO SCH (21:49)
[2022-08-12] MEDS: SERTRALINE 50 MG TABLET PO SCH (21:50)
[2022-08-12] MEDS: MORPHINE 2 MG/ML CARPUJECT IVP PRN (22:41)
[2022-08-13] MEDS: MORPHINE 2 MG/ML CARPUJECT IVP PRN ×2 (02:13→09:30)
[2022-08-13 05:17] LABS: BASOPHILS % (AUTO) 0.1 %; EOSINOPHILS # (AUTO) 0.1 10^3/uL (0.0-0.7); EOSINOPHILS % (AUTO) 0.8 %; HCT - HEMATOCRIT 39.2 % (37.0-47.0); HGB - HEMOGLOBIN 13.1 g/dL (12.0-16.0); LYMPHOCYTES # (AUTO) 0.7 10^3/uL (1.5-3.5); LYMPHOCYTES % (AUTO) 6.5 %; MEAN CORPUSCULAR HEMOGLOBIN 31.3 pg (27.0-31.0); MEAN CORPUSCULAR HGB CONC 33.4 g/dL (32.0-36.0); MEAN CORPUSCULAR VOLUME 93.8 fL (81.0-99.0); MEAN PLATELET VOLUME 8.8 fL (7.9-10.8); MONOCYTES # (AUTO) 0.8 10^3/uL (0.0-1.0); MONOCYTES % (AUTO) 7.6 %; NEUTROPHILS # (AUTO) 8.7 10^3/uL (1.5-6.6); NEUTROPHILS % (AUTO) 84.7 %; PLT - PLATELET COUNT 247 10^3/uL (130-450); RED BLOOD COUNT 4.18 10^6/uL (4.20-5.40); RED CELL DISTRIBUTION WIDTH 14.4 % (12.0-15.0); WHITE BLOOD COUNT 10.2 x10^3/uL (4.8-10.8)
[2022-08-13 05:30] LABS: CALCIUM 9.5 mg/dL (8.5-10.3); CREATININE 0.5 mg/dL (0.4-1.0); POTASSIUM 3.5 mmol/L (3.5-5.0)
--- NOTE | 2022-08-13 06:34 | ED Physician Documentation ---
ED Addendum - Addendum Addendum: 08/13/22 06:33 Patient received a signout from outgoing physician, please see their do cumentation for further detail. Patient monitored carefully throughout my shift. Evaluated and found to be resting comfortably and in no acute distress. A.m. labs however demonstrated an uptrending Troponin. EKG obtained 08/13/2022 at 0622 hrs.: Atrial flutter with rate 110 bpm. Normal axis. Normal QRS intervals. QTc prolonged at [address] segment elevations. Nonspecific ST and T wave abnormalities throughout. Patient denies any new or worsening chest pressure. We will continue to monitor carefully. We will be signing out to the oncoming physician, please see their documentation for further detail.
[2022-08-13] MEDS: carvediloL 12.5 MG TABLET PO SCH ×2 (08:50→21:46)
[2022-08-13] MEDS: amLODIPine 5 MG TABLET PO SCH (08:51)
[2022-08-13] MEDS: NITROGLYCERIN 0.2 MG/HR PATCH TOP SCH (09:47)
[2022-08-13] MEDS: POTASSIUM CHLORIDE 20 MEQ TABLET PO SCH ×2 (09:47→21:46)
[2022-08-13] MEDS: LOSARTAN 50 MG TABLET PO SCH (09:47)
[2022-08-13] MEDS: HYDROXYCHLOROQUINE 200 MG TABLET PO SCH ×2 (09:47→21:46)
[2022-08-13] MEDS: ENOXAPARIN 80 MG/0.8 ML SYRINGE SUBQ SCH ×2 (09:48→21:46)
[2022-08-13] MEDS: PANTOPRAZOLE 40 MG TABLET PO SCH (09:48)
[2022-08-13] MEDS: FUROSEMIDE 20 MG TABLET PO SCH (09:48)
--- NOTE | 2022-08-13 17:46 | ED Physician Documentation ---
ED Addendum - Addendum Addendum: 08/13/22 17:42 The patient has felt good through the day today. She remains in A. fib with a rate controlled. She denies any chest pain episodes during the day today and denies dyspnea while lying. She has not really been out of bed except for commode. She had had a slight increase again in her troponin this morning. He had been up to the 40s and down trended to 25 and then 45 again this morning. No chest pain during the night. However with the potential concern for unstable angina or ischemia versus just related to the A. fib, I did add a Nitropaste daily for coronary vasodilation. We will check the troponin again this evening. I placed orders for troponin as well as electrolytes magnesium and BNP for the morning and a repeat chest x-ray for the morning 08/14/2022. There have been no word on excepting facilities through the day today. We will maintain the search for excepting facilities for concern of occlusive heart disease possibility. Of consideration would be the extent of duration for her to be under direct care, if her troponins downtrend and stay down, at what point could she potentially be treated with medical intervention and outpatient follow-up for testing.
[2022-08-13] MEDS: SERTRALINE 50 MG TABLET PO SCH (21:46)
[2022-08-13] MEDS: LORazepam 1 MG TABLET PO SCH (21:46)
[2022-08-14 05:16] LABS: BASOPHILS % (AUTO) 0.1 %; EOSINOPHILS % (AUTO) 0.2 %; HCT - HEMATOCRIT 37.3 % (37.0-47.0); HGB - HEMOGLOBIN 12.3 g/dL (12.0-16.0); LYMPHOCYTES # (AUTO) 0.7 10^3/uL (1.5-3.5); LYMPHOCYTES % (AUTO) 6.9 %; MEAN CORPUSCULAR HEMOGLOBIN 31.2 pg (27.0-31.0); MEAN CORPUSCULAR VOLUME 94.7 fL (81.0-99.0); MEAN PLATELET VOLUME 9.1 fL (7.9-10.8); MONOCYTES % (AUTO) 9.7 %; NEUTROPHILS # (AUTO) 8.5 10^3/uL (1.5-6.6); NEUTROPHILS % (AUTO) 82.8 %; PLT - PLATELET COUNT 240 10^3/uL (130-450); RED BLOOD COUNT 3.94 10^6/uL (4.20-5.40); RED CELL DISTRIBUTION WIDTH 14.4 % (12.0-15.0); WHITE BLOOD COUNT 10.3 x10^3/uL (4.8-10.8)
[2022-08-14 05:25] LABS: CALCIUM 9.3 mg/dL (8.5-10.3); CREATININE 0.8 mg/dL (0.4-1.0); MAGNESIUM 2.2 mg/dL (1.7-2.8); POTASSIUM 3.7 mmol/L (3.5-5.0)
--- NOTE | 2022-08-14 07:27 | XRAY Report ---
PROCEDURE: Chest 1 View X-Ray INDICATIONS: chest pain TECHNIQUE: One view of the chest was acquired. COMPARISON: CT pulmonary angiogram and CXR 08/10/2022. Left shoulder radiographs 04/10/2017. FINDINGS: Surgical changes and devices: Right shoulder arthroplasty. Lungs and pleura: No pleural effusions or pneumothorax. Bilateral hazy airspace opacity, slightly im proved. No consolidation seen. Mediastinum: Mediastinal contours appear unchanged. Heart size is prominent. Bones and chest wall: Osseous destruction of the left humeral head, similar to 2017. Scoliosis. Over lying soft tissues appear unremarkable. IMPRESSION: Bilateral hazy airspace opacity. This could be due to mild pulmonary edema or infectious/inflammatory etiology. There is also likely a component of atelectasis. These findings are slightly improved comp ared to 08/10/2022. Similar osseous destruction of the left humeral head compared to 2017. Reviewed by: Gurmeet Hayes MD on 08/14/2022 6:25 AM RODO Approved by: Gurmeet Hayes MD on 08/14/2022 6:25 AM RODO Station ID: [id number]
--- NOTE | 2022-08-14 10:20 | ED Physician Documentation ---
ED Addendum - Addendum Addendum: 08/14/22 10:19 Subjective: Seen at bedside, no chest pain, shoulder doing better today. She did have some bloody phlegm overnight, she felt it was from her throat. Objective: CBC stable, sodium trending down, troponin basically flat, magnesium normal, BNP down. Heart rates controlled in the 80s and 90s, acceptable blood pressure, breathing comfortably with normal pulse oximetry is on room air. Assessment A. fib with CHF Quentin possible NSTEMI versus strain causing increased troponin. Plan: Medical management for now, still no cardiac capable facility to transfer her to. Tomorrow will be day 5 in the ED, consider repeat cardiology consultation with outpatient management at that point.
[2022-08-14] MEDS: FUROSEMIDE 20 MG TABLET PO SCH (10:21)
[2022-08-14] MEDS: ENOXAPARIN 80 MG/0.8 ML SYRINGE SUBQ SCH ×2 (10:21→20:56)
[2022-08-14] MEDS: carvediloL 12.5 MG TABLET PO SCH ×2 (10:21→20:56)
[2022-08-14] MEDS: NITROGLYCERIN 0.2 MG/HR PATCH TOP SCH (10:21)
[2022-08-14] MEDS: POTASSIUM CHLORIDE 20 MEQ TABLET PO SCH ×2 (10:21→20:57)
[2022-08-14] MEDS: HYDROXYCHLOROQUINE 200 MG TABLET PO SCH ×2 (10:21→20:56)
[2022-08-14] MEDS: amLODIPine 5 MG TABLET PO SCH (10:21)
[2022-08-14] MEDS: ATORVASTATIN 40 MG TABLET PO SCH (10:21)
[2022-08-14] MEDS: PANTOPRAZOLE 40 MG TABLET PO SCH (10:21)
[2022-08-14] MEDS: LOSARTAN 50 MG TABLET PO SCH (10:21)
--- NOTE | 2022-08-14 14:53 | ED Physician Documentation ---
ED Addendum - Addendum Addendum: 08/14/22 14:[address] Felice Davidson, cardiology at [facility] who will consult and defers to the hospitalist for admission. Sounds like they do have a bed today. 08/14/22 15:[address] Moore, the hospitalist at [facility] who did not feel like she needed to be admitted at all and plans to discuss the case with the environmental health aide prior to excepting. 08/14/22 15:51 We did want to get her moving a bit more today, she spent much of my shift up in a chair which is good, we did ambulate her though just prior to this time and she became severely short of breath with only about 10 feet of ambulation. Repeat EKG done at 1540 hrs. discloses atrial fibrillation with a rate of 91, flattened T waves throughout with borderline prolonged QTC at 486. 08/14/22 15:58 Took call from [facility], they declined to take her in transfer due to lack of acuity. 08/14/22 16:13 We will put her back on the [facility] list. Patient not feeling comfortable going home at this point. I discontinued her nitroglycerin patch due to some soft blood pressures. 08/14/22 16:[address] Rollins's partner, Dr. Sanchez, who recommended more aggressive diuresis and reevaluation tomorrow. I ordered 40 mg IV now and an extra 40 mg for tomorrow morning.
[2022-08-14] MEDS ORDERED: FUROSEMIDE 40 MG/4 ML VIAL IVP STA (16:43)
[2022-08-14] MEDS ORDERED: HYDROmorphone 2 MG TABLET PO PRN (18:14)
[2022-08-14] MEDS: DOCUSATE SODIUM 100 MG CAPSULE PO SCH (20:56)
[2022-08-14] MEDS: LORazepam 1 MG TABLET PO SCH (20:56)
[2022-08-14] MEDS: SERTRALINE 50 MG TABLET PO SCH (20:57)
[2022-08-15 05:25] LABS: BASOPHILS % (AUTO) 0.2 %; EOSINOPHILS # (AUTO) 0.2 10^3/uL (0.0-0.7); EOSINOPHILS % (AUTO) 2.1 %; HCT - HEMATOCRIT 34.9 % (37.0-47.0); HGB - HEMOGLOBIN 11.6 g/dL (12.0-16.0); LYMPHOCYTES # (AUTO) 1.1 10^3/uL (1.5-3.5); MEAN CORPUSCULAR HEMOGLOBIN 31.3 pg (27.0-31.0); MEAN CORPUSCULAR HGB CONC 33.2 g/dL (32.0-36.0); MEAN CORPUSCULAR VOLUME 94.1 fL (81.0-99.0); MEAN PLATELET VOLUME 9.8 fL (7.9-10.8); MONOCYTES # (AUTO) 0.9 10^3/uL (0.0-1.0); MONOCYTES % (AUTO) 10.6 %; NEUTROPHILS # (AUTO) 6.6 10^3/uL (1.5-6.6); NEUTROPHILS % (AUTO) 74.6 %; PLT - PLATELET COUNT 227 10^3/uL (130-450); RED BLOOD COUNT 3.71 10^6/uL (4.20-5.40); RED CELL DISTRIBUTION WIDTH 14.6 % (12.0-15.0); WHITE BLOOD COUNT 8.9 x10^3/uL (4.8-10.8)
[2022-08-15 05:34] LABS: CALCIUM 8.8 mg/dL (8.5-10.3); CREATININE 1.1 mg/dL (0.4-1.0); POTASSIUM 3.7 mmol/L (3.5-5.0)
[2022-08-15] MEDS ORDERED: FUROSEMIDE 40 MG/4 ML VIAL IVP SCH (07:30)
--- NOTE | 2022-08-15 07:38 | XRAY Report ---
PROCEDURE: Chest 1 View X-Ray INDICATIONS: dyspnea TECHNIQUE: One view of the chest was acquired. COMPARISON: CXR 08/14/2022, 08/10/2022. CT pulmonary angiogram 08/10/2022. FINDINGS: Surgical changes and devices: Right shoulder arthroplasty. Lungs and pleura: No significant pleural effusions or pneumothorax. No consolidation. Minimal promin ent pulmonary markings are similar. Mediastinum: Mediastinal contours appear normal. Heart size is normal. Bones and chest wall: No suspicious bony lesions. Severe left shoulder DJD. Overlying soft tissues appear unremarkable. IMPRESSION: Prominent pulmonary markings are similar. Suspect mild fluid overload/CHF. This report is concordant with the overnight preliminary interpretation. Reviewed by: Gurmeet Hayes MD on 08/15/2022 6:37 AM RODO Approved by: Gurmeet Hayes MD on 08/15/2022 6:37 AM RODO Station ID: [id number]
[2022-08-15] MEDS ORDERED: FUROSEMIDE 40 MG/4 ML VIAL IVP STA (09:08)
[2022-08-15] MEDS: FUROSEMIDE 20 MG TABLET PO SCH (09:13)
[2022-08-15] MEDS: amLODIPine 5 MG TABLET PO SCH (09:48)
[2022-08-15] MEDS: POTASSIUM CHLORIDE 20 MEQ TABLET PO SCH (09:49)
[2022-08-15] MEDS: ATORVASTATIN 40 MG TABLET PO SCH (09:49)
[2022-08-15] MEDS: ENOXAPARIN 80 MG/0.8 ML SYRINGE SUBQ SCH (09:49)
[2022-08-15] MEDS: carvediloL 12.5 MG TABLET PO SCH (09:49)
[2022-08-15] MEDS: PANTOPRAZOLE 40 MG TABLET PO SCH (09:49)
[2022-08-15] MEDS: DOCUSATE SODIUM 100 MG CAPSULE PO SCH (09:49)
[2022-08-15] MEDS: LOSARTAN 50 MG TABLET PO SCH (09:49)
[2022-08-15] MEDS: HYDROXYCHLOROQUINE 200 MG TABLET PO SCH (09:49)
[2022-08-15] MEDS ORDERED: HYDROmorphone 2 MG TABLET PO STA (10:51)
--- NOTE | 2022-08-15 12:44 | ED Physician Documentation ---
ED Addendum - Addendum Addendum: 08/15/22 12:41 The patient remained stable overnight with no dyspnea and good vital signs. She was feeling okay this morning and ate breakfast without any problems. We did get her up and ambulatory in the room and for short in the ER and she did not experience any notable dyspnea. She is feeling comfortable for discharge home. She was concerned about the prescription for pain medicine for her shoulder. Evaluation of the chart shows that prescriptions for the diuretic, anticoagulant and pain medicine were delineated by Dr. Castañeda yesterday. We will transmit them to the pharmacy today. The patient's blood pressure is a little bit lower this morning. I will have her hold the felodipine. She was feeling comfortable ambulatory even though it was a little bit low so I feel she is stable for discharge. She had received her morning blood pressure medicines. She could also hold the candesartan if her blood pressure is remaining lower. They do have a blood pressure cuff at home. Objective: The patient is awake alert and conversant. Unlabored breathing. Lungs sound pretty clear with just faint bibasilar crackles. Heart is rate controlled without any notable murmur. There is no leg edema noted. Disposition: The patient discharged home in stable condition. Diagnoses: 1. New onset atrial fibrillation 2. Dyspnea 3. Congestive heart failure 4. Elevated troponin level.
[2022-08-15] MEDS ORDERED: SODIUM CHLORIDE 0.9% 250 ML IV STA ×3 (12:49→15:00)
[2022-08-15 18:23] VITALS: BP 98/63
[2022-08-16] MEDS ORDERED: ENOXAPARIN 80 MG/0.8 ML SYRINGE SUBQ SCH (09:00)
== END 2022-08-15 18:45 | disposition home or self-care (01) ==
LOC: ED 16:31
DX: I21.4 Non-ST elevation (NSTEMI) myocardial infarction (principal); I11.0 Hypertensive heart disease with heart failure; M25.512 Pain in left shoulder; G89.29 Other chronic pain; R09.89 Other specified symptoms and signs involving the circulatory and respiratory systems; I50.1 Left ventricular failure, unspecified; I48.91 Unspecified atrial fibrillation; Z20.822 Contact with and (suspected) exposure to COVID-19; R77.8 Other specified abnormalities of plasma proteins
CPT/HCPCS: 36415; 71045; 71275; 73030; 80048; 80053; 83690; 83735; 83880; 84443; 84484; 85025; 85379; 87635; 93005; 93306; 96372; 96374; 96375; 96376; 99285; 99291; A9270; J1650; J8499; Q0162; Q9967

== ENCOUNTER 2022-10-16 03:45 | Inpatient (IN) | payer MEDICARE ==
--- NOTE | 2022-10-16 04:11 | ED Physician Documentation ---
PD HPI NVD - Stated complaint Stated Complaint: AFIB N/V; SOA - Chief complaint Chief Complaint: Abd Pain - History obtained from History obtained from: Patient, Family ( (in ED at bedside)) - History of Present Illness Timing - onset: How many weeks ago (1.5) Timing - details: Gradual onset Associated symptoms: Other (dark, tarry stool x 1-2 weeks). No: Fever, Abdominal pain, Hematemesis, Melena, Hematochezia Recently seen: Not recently seen - Additonal information Additional information: patient c/o 1-2 weeks of gradual onset, steadily worsening dyspnea on exertion. She also notes generalized weakness, fatigue, intermittent n/v. Denies chest pain. She was in this ED two months ago for new-onset atrial fibrillation and NSTEMI but due to lack of bed availability at other hospitals, she was discharged after staying several days in this ED. She says she did follow up [facility] cardiology at [facility]. She says electrocardioversion was attempted by cardiology but was unsuccessful. She also had a nuclear stress test which was unremarkable (per patient). Review of Systems Constitutional: reports: Fatigue. denies: Fever, Chills, Sweats Cardiac: reports: Reviewed and negative Respiratory: reports: Dyspnea. denies: Cough, Hemoptysis, Wheezing GI: reports: Nausea, Vomiting, Constipation, Bloody / black stool. denies: Abdominal Pain, Abdominal Swelling, Hematemesis : denies: Dysuria, Frequency Neurologic: reports: Generalized weakness. denies: Focal weakness, Numbness, Headache PD PAST MEDICAL HISTORY - Past Medical History Past Medical History: Yes Cardiovascular: Hypertension, Atrial fibrillation Respiratory: None Neuro: None Endocrine/Autoimmune: Systemic lupus erythematosus GI: GI bleed, Hemorrhoids, Diverticulitis PSYCHIATRIC SPECIALIST: Breast cancer : None HEENT: None Psych: Anxiety Musculoskeletal: None Derm: None - Past Surgical History Past Surgical History: Yes General: Other Ortho: Hip replacement, Shoulder arthroplasty - Present Medications Home Medications: Ambulatory Orders Medication Instructions Recorded Confirmed Candesartan Cilexetil 1 tab PO .FREQ 04/10/17 08/11/22 Felodipine [Felodipine ER] 1 tab PO DAILY 04/10/17 08/11/22 Hydroxychloroquine [Plaquenil] 200 mg PO BID 04/10/17 08/11/22 Omeprazole [PriLOSEC] 1 tab PO DAILY 04/10/17 08/11/22 Potassium Chloride 2.5 tab PO DAILY 04/10/17 08/11/22 Sertraline [Zoloft] 100 mg PO DAILY 04/10/17 08/11/22 carvediloL [Carvedilol] 50 mg PO DAILY 04/10/17 08/11/22 Furosemide [Lasix] 20 mg PO DAILY #14 tablet 08/14/22 Potassium Chloride [Klor-Con M10] 10 meq PO DAILY #14 tab 08/14/22 Rivaroxaban [Xarelto] 20 mg PO DAILY #30 tablet 08/14/22 HYDROmorphone [Dilaudid] 1 - 2 tab PO Q4H PRN #25 tablet 08/15/22 - Allergies Allergies/Adverse Reactions: Allergies Allergy/AdvReac Type Severity Reaction Status Date / Time codeine Allergy Unknown Verified 10/16/22 04:07 prochlorperazine Allergy Unknown Verified 10/16/22 04:07 [From Compazine] prochlorperazine edisylate * Allergy Unknown Verified 10/16/22 04:07 [From Compazine] prochlorperazine maleate * Allergy Unknown Verified 10/16/22 04:07 [From Compazine] - Social History Does the pt smoke?: No Smoking Status: Never smoker Does the pt drink ETOH?: Yes Does the pt have substance abuse?: No - Immunizations Immunizations are current?: No Immunizations: TDAP >10years/unknown - POLST Patient has POLST: No PD ED PE NORMAL - Vitals Vital signs reviewed: Yes - General General: Alert and oriented X 3, No acute distress, Well developed/nourished - HEENT HEENT: Moist mucous membranes - Neck Neck: Supple, no meningeal sign - Respiratory Respiratory: No respiratory distress, Clear bilaterally - Abdomen Abdomen: Soft, Non tender, Non distended - Derm Derm: Normal color, Warm and dry - Extremities Extremities: No edema - Neuro Neuro: Alert and oriented X 3 Eye Opening: Spontaneous Motor: Obeys Commands Verbal: Oriented GCS Score: 15 PD ED PE EXPANDED - Cardiac Cardiac: Irregularly irregular Results - Vitals Vitals: Vital Signs - 24 hr 10/16/22 10/16/22 10/16/22 04:00 05:36 05:52 Temperature 36.5 C 37.3 C Heart Rate 60 74 Heart Rate [ 93 Monitoring electrodes] Respiratory 18 24 23 Rate Blood Pressure 117/87 H 102/66 Blood Pressure [Right] O2 Saturation 100 99 96 If not protocol : Oxygen Flow, liters/minute 10/16/22 10/16/22 10/16/22 06:09 06:16 06:28 Temperature 37.3 C Heart Rate Heart Rate [ 79 64 Monitoring electrodes] Respiratory 23 20 Rate Blood Pressure Blood Pressure 97/73 113/60 [Right] O2 Saturation 98 98 If not protocol 0 : Oxygen Flow, liters/minute 10/16/22 10/16/22 10/16/22 06:40 06:59 08:11 Temperature 37.2 C 37.0 C Heart Rate 93 Heart Rate [ 85 87 Monitoring electrodes] Respiratory 19 17 22 Rate Blood Pressure 101/63 Blood Pressure 99/66 109/67 [Right] O2 Saturation 99 94 98 If not protocol : Oxygen Flow, liters/minute 10/16/22 10/16/22 10/16/22 08:23 08:37 08:39 Temperature 37.0 C 37.3 C 37.2 C Heart Rate Heart Rate [ 86 91 94 Monitoring electrodes] Respiratory 22 23 24 Rate Blood Pressure Blood Pressure 112/80 110/67 108/68 [Right] O2 Saturation 95 98 If not protocol : Oxygen Flow, liters/minute 10/16/22 10/16/22 08:48 09:45 Temperature 37.2 C 37.2 C Heart Rate Heart Rate [ 90 87 Monitoring electrodes] Respiratory 24 19 Rate Blood Pressure Blood Pressure 108/68 98/66 [Right] O2 Saturation 98 100 If not protocol : Oxygen Flow, liters/minute Oxygen O2 Source Room air - EKG (time done) No standard instances Rate: Rate (enter#) (77) Rhythm: Atrial fibrillation [place]: Normal - Labs Labs: Microbiology 10/16/22 05:00 Occult Blood - Final Stool Laboratory Tests 10/16/22 10/16/22 10/16/22 03:57 03:57 03:57 WBC 8.0 RBC 1.91 L Hgb 5.4 L* Hct 18.2 L* MCV 95.3 MCH 28.3 MCHC 29.7 L RDW 16.2 H Plt Count 414 MPV 9.7 Neut # (Auto) 6.7 H Lymph # (Auto) 0.7 L Cassia # (Auto) 0.6 Eos # (Auto) 0.0 Baso # (Auto) 0.0 Absolute Nucleated RBC 0.03 Nucleated RBC % 0.4 Sodium 125 L Potassium 4.8 Chloride 88 L Carbon Dioxide 28 Anion Gap 9.0 BUN 32 H Creatinine 1.4 H Estimated GFR (MDRD) 36 L Glucose 122 H Calcium 8.4 L Total Bilirubin 1.0 AST 52 H ALT 38 Alkaline Phosphatase 92 Troponin I High Sens 51.5 H* B-Natriuretic Peptide Total Protein 5.8 L Albumin 3.3 Globulin 2.5 Albumin/Globulin Ratio 1.3 Lipase 33 Blood Type Blood Type Recheck Antibody Screen Crossmatch IS Only 10/16/22 10/16/22 10/16/22 04:10 04:42 04:42 WBC RBC Hgb Hct MCV MCH MCHC RDW Plt Count MPV Neut # (Auto) Lymph # (Auto) Cassia # (Auto) Eos # (Auto) Baso # (Auto) Absolute Nucleated RBC Nucleated RBC % Sodium Potassium Chloride Carbon Dioxide Anion Gap BUN Creatinine Estimated GFR (MDRD) Glucose Calcium Total Bilirubin AST ALT Alkaline Phosphatase Troponin I High Sens B-Natriuretic Peptide 700 H Total Protein Albumin Globulin Albumin/Globulin Ratio Lipase Blood Type O POSITIVE Blood Type Recheck O POSITIVE Antibody Screen NEGATIVE Crossmatch IS Only See Detail PD Medical Decision Making - ED course Complexity details: reviewed old records, reviewed results, re-evaluated patient, considered differential, d/w patient ED course: Patient presents with a chief complaint of gradual onset of dyspnea on exertion that started approximately week and a half ago and has been steadily worsening. During this same timeframe, she also has been having increasing generalized weakness. She also has noted intermittent nausea and vomiting over the past few days worse today. On tonight's test she is found to be very anemic with hemoglobin of 5.6 and hematocrit of 18.2. On August 15, when she was most recently in this emergency department, her hemoglobin was 11.6 with hematocrit of 34.9. On her ED stay in July she was in new onset A. fib and that was when she was started on Xarelto, which she is still taking. She is guaiac positive on today's visit. Due to her significant anemia, she is typed and crossed for 2 units and transfused 2 units of packed red blood cells. Patient will need to be admitted for further testing, possible further transfusion, as well as possible scope (such as upper and/or lower endoscopy). Unfortunately, we do not have general surgical services available for the next [address] [facility]. Patient will thus need to be transferred to another, appropriate facility. Care of the patient is turned over to Dr. Ruiz at end of my shift, pending transfer to appropriate facility when a bed becomes available. Departure - Departure Disposition: 02 Transfer Acute Care Hosp Clinical Impression: Gastrointestinal bleed Qualifiers: GI bleed type/associated pathology: unspecified gastrointestinal hemorrhage ty pe Qualified Code(s): K92.2 - Gastrointestinal hemorrhage, unspecified Anemia Qualifiers: Anemia type: unspecified type Qualified Code(s): D64.9 - Anemia, unspecified Condition: Stable
[2022-10-16] MEDS ORDERED: ONDANSETRON 4 MG/2 ML VIAL IVP STA (04:12)
[2022-10-16 04:14] LABS: BASOPHILS % (AUTO) 0.1 %; EOSINOPHILS % (AUTO) 0.1 %; LYMPHOCYTES # (AUTO) 0.7 10^3/uL (1.5-3.5); LYMPHOCYTES % (AUTO) 8.1 %; MEAN CORPUSCULAR HEMOGLOBIN 28.3 pg (27.0-31.0); MEAN CORPUSCULAR HGB CONC 29.7 g/dL (32.0-36.0); MEAN CORPUSCULAR VOLUME 95.3 fL (81.0-99.0); MEAN PLATELET VOLUME 9.7 fL (7.9-10.8); MONOCYTES # (AUTO) 0.6 10^3/uL (0.0-1.0); MONOCYTES % (AUTO) 7.4 %; NEUTROPHILS # (AUTO) 6.7 10^3/uL (1.5-6.6); NEUTROPHILS % (AUTO) 84.1 %; NRBC ABSOLUTE COUNT (AUTO) 0.03 x10^3/uL; NUCLEATED RED BLOOD CELLS AUTO 0.4 /100WBC; PLT - PLATELET COUNT 414 10^3/uL (130-450); RED BLOOD COUNT 1.91 10^6/uL (4.20-5.40); RED CELL DISTRIBUTION WIDTH 16.2 % (12.0-15.0)
[2022-10-16 04:22] LABS: HGB - HEMOGLOBIN 5.4 g/dL (12.0-16.0)
[2022-10-16 04:23] LABS: HCT - HEMATOCRIT 18.2 % (37.0-47.0)
[2022-10-16 04:29] LABS: ALBUMIN 3.3 g/dL (3.2-5.5); ALBUMIN/GLOBULIN RATIO 1.3 (1.0-2.2); CALCIUM 8.4 mg/dL (8.5-10.3); CREATININE 1.4 mg/dL (0.4-1.0); POTASSIUM 4.8 mmol/L (3.5-5.0); TOTAL PROTEIN 5.8 g/dL (6.7-8.2)
[2022-10-16] MEDS ORDERED: FUROSEMIDE 20 MG/2 ML VIAL IVP PRN (04:29)
[2022-10-16] MEDS ORDERED: HYDROmorphone 1 MG/ML CARPUJECT IVP STA (04:55)
[2022-10-16] MEDS ORDERED: LORazepam 2 MG/ML VIAL IVP STA ×2 (04:55→15:35)
[2022-10-16] MEDS ORDERED: FUROSEMIDE 20 MG/2 ML VIAL IVP STA (05:24)
[2022-10-16] MEDS ORDERED: DROPERIDOL 5 MG/2 ML VIAL IVP STA (07:20)
[2022-10-16] MEDS ORDERED: FUROSEMIDE 20 MG/2 ML VIAL IVP ONE (08:00)
[2022-10-16] MEDS: PANTOPRAZOLE 40 MG VIAL IVP SCH ×2 (08:10→09:29)
--- NOTE | 2022-10-16 10:42 | XRAY Report ---
PROCEDURE: Chest 1 View X-Ray INDICATIONS: dyspnea TECHNIQUE: One view of the chest was acquired. COMPARISON: 08/15/2022 FINDINGS: Surgical changes and devices: None. Lungs and pleura: Increased interstitial markings in both lungs. No airspace opacity. No pleural eff usion or pneumothorax identified. Mediastinum: Mediastinal contours appear normal. Heart size is normal. Bones and chest wall: No suspicious bony lesions. Overlying soft tissues appear unremarkable. IMPRESSION: Mild interstitial edema. Reviewed by: Fernandez Aldridge MD on 10/16/2022 10:41 AM [facility] Approved by: Fernandez Aldridge MD on 10/16/2022 10:41 AM [facility] Station ID: [id number]
[2022-10-16] MEDS ORDERED: SODIUM CHLORIDE 0.9% 1,000 ML IV STA (15:35)
[2022-10-16] MEDS ORDERED: MAG HYDROX/AL HYDROX/SIMETH 30 ML UDC PO STA (15:36)
[2022-10-16] MEDS ORDERED: DROPERIDOL 5 MG/2 ML VIAL IVP PRN (15:53)
[2022-10-16 16:04] LABS: HCT - HEMATOCRIT 23.4 % (37.0-47.0); HGB - HEMOGLOBIN 7.3 g/dL (12.0-16.0)
[2022-10-16 16:10] LABS: INR 1.7 (0.8-1.2); PT - PROTHROMBIN TIME 18.7 secs (9.9-12.6)
[2022-10-16 16:15] LABS: CALCIUM 8.4 mg/dL (8.5-10.3); CREATININE 1.1 mg/dL (0.4-1.0); MAGNESIUM 2.4 mg/dL (1.7-2.8); POTASSIUM 3.9 mmol/L (3.5-5.0)
[2022-10-16] MEDS: ACETAMINOPHEN 500 MG TABLET PO PRN (19:14)
[2022-10-16] MEDS: carvediloL 12.5 MG TABLET PO SCH (20:40)
[2022-10-16] MEDS: LORazepam 1 MG TABLET PO SCH (20:41)
[2022-10-16] MEDS ORDERED: POTASSIUM CHLORIDE 20 MEQ TABLET PO STA (20:47)
[2022-10-16] MEDS ORDERED: FUROSEMIDE 40 MG/4 ML VIAL IVP STA (20:47)
--- NOTE | 2022-10-16 21:23 | ED Physician Documentation ---
ED Addendum - Addendum Addendum: 10/16/22 21:15 Patient seen and examined at bedside. Briefly she is a 76-year-old woman with history of A. fib and who was on Xarelto who presented early this morning with shortness of breath and found to be profoundly anemic probably related to dark and tarry stools and she was guaiac positive. Her initial hemoglobin was 5.4 and she received 2 units of blood, IV PPI. She did have some mild pulmonary edema on x-ray with elevated BNP and has received some diuresis for this. Subs equently after the 2 units of blood her repeat H&H was much better with a hemoglobin of 7.3. Troponin was elevated at 51.5 and repeat was checked and was flat at 53.0. She is boarding in the emergency department pending transfer as we do not have any surgeon on-call to do an endoscopy until the third. No beds are available at outlying facilities either. Plan for serial labs. She was a little short of breath this afternoon so we will do an extra dose of IV Lasix but she preferred to hold off till the morning so I scheduled it for the morning.
[2022-10-16 22:19] LABS: HCT - HEMATOCRIT 22.2 % (37.0-47.0)
[2022-10-16 22:21] LABS: HGB - HEMOGLOBIN 6.8 g/dL (12.0-16.0)
[2022-10-17] MEDS ORDERED: FUROSEMIDE 40 MG/4 ML VIAL IVP STA (01:42)
--- NOTE | 2022-10-17 01:44 | ED Physician Documentation ---
ED Addendum - Addendum Addendum: 10/17/22 01:43 I was called urgently into the patient's room when she became quite restless began to have some difficulty breathing. The patient has recently been given 2 units of blood and she required 40 mg of Lasix after the second unit. She had a fall in her hemoglobin again and 1/3 unit of blood was hung. When she began to get short of breath with this the transfusion was stopped and she is administered 40 mg of Lasix intravenously. I did interrogate the patient's inferior vena cava and found it to be 2.3 cm and plethoric. This is consistent with acute failure. The patient's lung exam at the time was clear. She did have reduction in her O2 saturation to the 93% range. We have placed the patient on oxygen.
[2022-10-17] MEDS: ACETAMINOPHEN 500 MG TABLET PO PRN (05:16)
[2022-10-17 05:55] LABS: HCT - HEMATOCRIT 26.8 % (37.0-47.0); HGB - HEMOGLOBIN 8.2 g/dL (12.0-16.0)
[2022-10-17 06:07] LABS: ALBUMIN 3.3 g/dL (3.2-5.5); ALBUMIN/GLOBULIN RATIO 1.4 (1.0-2.2); BILIRUBIN,TOTAL 1.8 mg/dL (0.2-1.0); CALCIUM 8.1 mg/dL (8.5-10.3); POTASSIUM 3.4 mmol/L (3.5-5.0); TOTAL PROTEIN 5.6 g/dL (6.7-8.2)
[2022-10-17] MEDS: PANTOPRAZOLE 40 MG VIAL IVP SCH (08:25)
[2022-10-17] MEDS: carvediloL 12.5 MG TABLET PO SCH ×2 (08:25→20:43)
[2022-10-17] MEDS: FUROSEMIDE 20 MG TABLET PO SCH (08:25)
[2022-10-17] MEDS: SERTRALINE 50 MG TABLET PO SCH (08:26)
[2022-10-17] MEDS: HYDROmorphone 2 MG TABLET PO PRN (11:11)
[2022-10-17 12:23] LABS: HCT - HEMATOCRIT 27.1 % (37.0-47.0); HGB - HEMOGLOBIN 8.5 g/dL (12.0-16.0)
[2022-10-17] MEDS ORDERED: SODIUM CHLORIDE 0.9% 500 ML IV STA (12:28)
[2022-10-17] MEDS ORDERED: LORazepam 2 MG/ML VIAL IVP STA (12:30)
[2022-10-17] MEDS ORDERED: LACTATED RINGERS 1,000 ML IV STA (12:30)
[2022-10-17] MEDS: HYDROmorphone 2 MG TABLET PO SCH ×2 (14:41→20:41)
[2022-10-17] MEDS: ACETAMINOPHEN 325 MG TABLET PO SCH ×3 (14:42→20:42)
--- NOTE | 2022-10-17 15:29 | ED Physician Documentation ---
ED Addendum - Addendum Addendum: 10/17/22 15:25 The patient's blood count was good this morning and a repeat at noon time showed similar level (8.2 and now 8.5). Her blood pressure was transiently low this morning. She has not been really eating much or drinking much. She was given some IV fluid bolus and this improved. We will want to look at some level of continued hydration and encourage some oral fluids. She did feel somewhat anxious this morning. It may have timed with the transient hypotension. She denies any regular alcohol use prior to admission. She does take hydrocodone 2 mg twice daily fairly regularly over the past few weeks. Also lorazepam at night for sleep. I do not think she is having notable withdrawal symptoms per se. However she is having some anxiety. I will schedule her hydromorphone to be regular twice a day rather than as needed as it currently is. She is currently prescribed lorazepam at night for sleep and I will add a as needed dosing every 8 hours if needed. We will check sequential blood counts every 6 hours for another day. This will assess for ongoing bleeding. Was still hoping for transfer to other facility. As we do not have surgical on- call for 2 more days. Otherwise potentially consider EGD for the upper GI bleed here if the patient has not been transferred by Tuesday.
[2022-10-17] MEDS ORDERED: LORazepam 1 MG TABLET PO PRN (18:00)
[2022-10-17 18:13] LABS: HCT - HEMATOCRIT 25.5 % (37.0-47.0)
[2022-10-17] MEDS: ONDANSETRON 4 MG/2 ML VIAL IVP PRN (20:46)
[2022-10-17] MEDS: LORazepam 1 MG TABLET PO SCH (20:47)
[2022-10-18 00:41] LABS: HGB - HEMOGLOBIN 8.6 g/dL (12.0-16.0)
[2022-10-18] MEDS ORDERED: LORazepam 2 MG/ML VIAL IVP STA (01:14)
[2022-10-18] MEDS ORDERED: LORazepam 2 MG/ML VIAL ONE (01:15)
[2022-10-18 06:09] LABS: HGB - HEMOGLOBIN 8.3 g/dL (12.0-16.0)
[2022-10-18] MEDS ORDERED: FUROSEMIDE 20 MG/2 ML VIAL IVP STA (07:42)
--- NOTE | 2022-10-18 07:42 | ED Physician Documentation ---
ED Addendum - Addendum Addendum: 10/18/22 07:42 Persistently complaining of shortness of breath, she has mild crackles at the bases, will provide an extra dose of Lasix this morning. H&H's have been stable since transfusion the night before last. She seems uncomfortable and slightly encephalopathic, Julia Shaffer did call overnight and expect an opening later today.
[2022-10-18] MEDS: HYDROmorphone 2 MG TABLET PO SCH ×2 (08:05→20:38)
[2022-10-18] MEDS: SERTRALINE 50 MG TABLET PO SCH (08:05)
[2022-10-18] MEDS: ACETAMINOPHEN 325 MG TABLET PO SCH ×4 (08:05→20:37)
[2022-10-18] MEDS: FUROSEMIDE 20 MG TABLET PO SCH (08:05)
[2022-10-18] MEDS: carvediloL 12.5 MG TABLET PO SCH ×2 (08:05→20:38)
[2022-10-18] MEDS: PANTOPRAZOLE 40 MG VIAL IVP SCH (08:13)
[2022-10-18 11:59] LABS: HCT - HEMATOCRIT 26.8 % (37.0-47.0); HGB - HEMOGLOBIN 8.3 g/dL (12.0-16.0)
[2022-10-18] MEDS: ACETAMINOPHEN 500 MG TABLET PO PRN (16:32)
[2022-10-18] MEDS: LORazepam 1 MG TABLET PO SCH (20:37)
[2022-10-19] MEDS ORDERED: LORazepam 2 MG/ML VIAL IVP STA (04:06)
--- NOTE | 2022-10-19 04:58 | ED Physician Documentation ---
ED Addendum - Addendum Addendum: 10/19/22 04:56 Note that patient woke around 4:15 AM with acute shortness of breath, responsive almost immediately to 1 mg IV Ativan. Chest x-ray was repeated with evidence of interstitial densities bilaterally similar to prior earlier this week. EKG atrial fibrillation with rate 113, no ST elevation. Patient now resting comfortably. Denied chest pain, nausea. Shortness of breath is now "much better". troponin,vbg, and BNP ordered alongside AM labs. 10/19/22 07:43 Troponin elevated, will have Dr. Scanlon, daytime ED MD f/u guera trop. BNP uptrending and CXR showed increased congestion therefore additional lasix IV 20mg ordered this morning.
[2022-10-19 06:06] LABS: BASOPHILS % (AUTO) 0.2 %; EOSINOPHILS # (AUTO) 0.1 10^3/uL (0.0-0.7); EOSINOPHILS % (AUTO) 1.2 %; HCT - HEMATOCRIT 29.2 % (37.0-47.0); HGB - HEMOGLOBIN 9.1 g/dL (12.0-16.0); LYMPHOCYTES # (AUTO) 0.1 10^3/uL (1.5-3.5); LYMPHOCYTES % (AUTO) 1.1 %; MEAN CORPUSCULAR HEMOGLOBIN 28.1 pg (27.0-31.0); MEAN CORPUSCULAR HGB CONC 31.2 g/dL (32.0-36.0); MEAN CORPUSCULAR VOLUME 90.1 fL (81.0-99.0); MEAN PLATELET VOLUME 8.8 fL (7.9-10.8); MONOCYTES % (AUTO) 0.4 %; NEUTROPHILS % (AUTO) 96.5 %; NRBC ABSOLUTE COUNT (AUTO) 0.04 x10^3/uL; NUCLEATED RED BLOOD CELLS AUTO 0.5 /100WBC; PLT - PLATELET COUNT 328 10^3/uL (130-450); RED BLOOD COUNT 3.24 10^6/uL (4.20-5.40); RED CELL DISTRIBUTION WIDTH 15.9 % (12.0-15.0); WHITE BLOOD COUNT 8.3 x10^3/uL (4.8-10.8)
[2022-10-19 06:07] LABS: VBG BASE EXCESS 4.9 mmol/L (-2 - +2); VBG HCO3 28.3 mmol/L (23-28); VBG OXYGEN SATURATION 97.5 % (60-80); VBG PCO2 37.4 mmHg (41-51); VBG PH 7.497 (7.31-7.41); VBG TOTAL CO2 29.5 mmol/L (24-29)
[2022-10-19 06:15] LABS: CALCIUM 8.1 mg/dL (8.5-10.3); POTASSIUM 2.8 mmol/L (3.5-5.0)
[2022-10-19 06:27] LABS: CORONAVIRUS 229E-RESP PCR NOT DETECTED
[2022-10-19 06:28] LABS: B. PARAPERTUSSIS- RESP PCR PAN NOT DETECTED; B. PERTUSSIS- RESP PCR PANEL NOT DETECTED; C. PNEUMONIAE- RESP PCR PANEL NOT DETECTED; CORONAVIRUS HKU1-RESP PCR NOT DETECTED; CORONAVIRUS NL63-RESP PCR NOT DETECTED; CORONAVIRUS OC43-RESP PCR NOT DETECTED; HUMAN METAPNEUMOVIRUS NOT DETECTED; INFLUENZA A- RESP PCR PANEL NOT DETECTED; INFLUENZA B - RESP PCR PANEL NOT DETECTED; M. PNEUMONIAE- RESP PCR PANEL NOT DETECTED; PARAINFLUENZA VIRUS 1 NOT DETECTED; PARAINFLUENZA VIRUS 2 NOT DETECTED; PARAINFLUENZA VIRUS 3 NOT DETECTED; PARAINFLUENZA VIRUS 4 NOT DETECTED; RHINOVIRUS/ENTEROVIRUS NOT DETECTED; RSV- RESP PCR PANEL NOT DETECTED; SARS-CoV-2 -RESP PCR PANEL NOT DETECTED
[2022-10-19] MEDS ORDERED: FUROSEMIDE 20 MG/2 ML VIAL IVP STA (07:00)
[2022-10-19] MEDS: POTASSIUM CHLOR 10 MEQ/100 ML 10 MEQ/100 ML BAG IV SCH ×4 (07:13→11:57)
--- NOTE | 2022-10-19 08:06 | XRAY Report ---
PROCEDURE: Chest 1 View X-Ray INDICATIONS: SOA TECHNIQUE: One view of the chest was acquired. COMPARISON: 10/16/2022, 08/15/2022. FINDINGS: Surgical changes and devices: Prior right shoulder arthroplasty is again seen. Surgical clips are al so noted in left axilla Lungs and pleura: There is suggestion of interstitial pulmonary edema and mild pulmonary vascular con gestion. Underlying small infiltrates cannot be entirely excluded. Trace left pleural effusion is lik jennifer present. No pneumothorax. Mediastinum: Mediastinal contours appear normal. Heart size is enlarged. Bones and chest wall: No suspicious bony lesions. Overlying soft tissues appear unremarkable. IMPRESSION: Finding is concerning for CHF. Underlying small pulmonary infiltrates cannot be entirely excluded. No pneumothorax. No significant discrepancies from preliminary reading. Reviewed by: Amarjit Harrison MD on 10/19/2022 8:05 AM PST Approved by: Amarjit Harrison MD on 10/19/2022 8:05 AM PST Station ID: [id number]
[2022-10-19] MEDS: ACETAMINOPHEN 325 MG TABLET PO SCH ×4 (09:41→21:20)
[2022-10-19] MEDS: PANTOPRAZOLE 40 MG VIAL IVP SCH (09:41)
[2022-10-19] MEDS: carvediloL 12.5 MG TABLET PO SCH ×2 (09:41→21:19)
[2022-10-19] MEDS: HYDROmorphone 2 MG TABLET PO SCH ×2 (09:41→21:22)
[2022-10-19] MEDS: SERTRALINE 50 MG TABLET PO SCH (09:41)
[2022-10-19] MEDS: FUROSEMIDE 20 MG TABLET PO SCH (09:41)
--- NOTE | 2022-10-19 09:45 | ED Physician Documentation ---
ED Addendum - Addendum Addendum: 10/19/22 09:45 D/W Dr. Leal. He does not believe that the patient requires a scope emergently as she has had a stable hemoglobin for several days but he will evaluate her this afternoon. Patient was seen by Dr. Leal this afternoon. Please see his consult note. Patient does not require an emergent endoscopy. However she remains on oxygen as she has an element of fluid overload possibly from a recent blood transfusions.We did try to wean the oxygen earlier today but that was not successful. Plan is to admit patient for fluid overload and hypoxia.I have placed a call to Dr. Morales who is acting hospitalist today But have not received a phone call back. I will sign out patient at shift change.
[2022-10-19] MEDS: HYDROmorphone 2 MG TABLET PO PRN (13:57)
--- NOTE | 2022-10-19 16:24 | CONSULTATION NOTE ---
Referring Provider Consult Date: 10/19/22 Chief Complaint - Chief Complaint Chief Complaint: short of breath History of Present Illness - History Obtained From Records Reviewed: yes History obtained from: pt and Exam Limitations: none - History of Present Illness HPI Comment/Other: admitted to ed with history dark stools and progressive shortness of breath. found to be very anemic and was transfused. no bm for several days now and hgb has been stable for several days she was taking aspirin and excedrin as well as xarelto. she states she had stopped her omeprazole but was takin nexium. [facility] new onset afib, mi, and chf. since she has seen a optimization manager. she has history of colectomy for diverticulitis and normal colonoscopy otherwise 7 years ago. she denies upper gi alarm symptoms such as weight loss. she feels hungry for food. this am she felt very short of breath. her k level is currently very low and is being replaced. cxr today chf still present History - Past Medical History Cardiovascular: reports: Hypertension, Atrial fibrillation Respiratory: reports: None Neuro: reports: None Endocrine/Autoimmune: reports: Systemic lupus erythematosus GI: reports: GI bleed, Hemorrhoids, Diverticulitis G[employer] DIST[employer]ION [employer]ANT OPERATOR: reports: Breast cancer : reports: None HEENT: reports: None Psych: reports: Anxiety Musculoskeletal: reports: Osteoarthritis Derm: reports: None MRSA Hx?: No - Past Surgical History General: reports: Other Ortho: reports: Hip replacement, Knee replacement, Shoulder arthroplasty - POLST Patient has POLST: No Meds/Allgy - Home Medications Home Medications: Ambulatory Orders Medication Instructions Recorded Confirmed Candesartan Cilexetil 1 tab PO DAILY 04/10/17 10/17/22 Felodipine [Felodipine ER] 1 tab PO DAILY 04/10/17 10/17/22 Hydroxychloroquine [Plaquenil] 200 mg PO BID 04/10/17 10/17/22 Omeprazole [PriLOSEC] 1 tab PO DAILY 04/10/17 10/17/22 Potassium Chloride 2.5 tab PO DAILY 04/10/17 10/17/22 Sertraline [Zoloft] 100 mg PO DAILY 04/10/17 10/17/22 carvediloL [Carvedilol] 50 mg PO DAILY 04/10/17 10/17/22 Furosemide [Lasix] 20 mg PO DAILY #14 tablet 08/14/22 10/17/22 Potassium Chloride [Klor-Con M10] 10 meq PO DAILY #14 tab 08/14/22 10/17/22 Rivaroxaban [Xarelto] 20 mg PO DAILY #30 tablet 08/14/22 10/17/22 HYDROmorphone [Dilaudid] 1 - 2 tab PO Q4H PRN #25 tablet 08/15/22 10/17/22 - Allergies Allergies/Adverse Reactions: Allergies Allergy/AdvReac Type Severity Reaction Status Date / Time codeine Allergy Unknown Verified 10/16/22 04:07 prochlorperazine Allergy Unknown Verified 10/16/22 04:07 [From Compazine] prochlorperazine edisylate * Allergy Unknown Verified 10/16/22 04:07 [From Compazine] prochlorperazine maleate * Allergy Unknown Verified 10/16/22 04:07 [From Compazine] Review of Systems - Other Findings Other Findings: 10 pt ros as above otherwise unremarkable Exam - Vital Signs Reviewed Vital Signs: Yes Vital Signs: Vital Signs x48h Pulse Resp BP Pulse Ox O2 Flow Rate 10/19/22 15:00 83 19 107/70 99 2 10/19/22 13:00 86 15 106/60 99 2 10/19/22 10:02 96 21 94 2 10/19/22 09:00 95 25 H 104/66 88 L - Physical Exam General Appearance: positive: No acute distress, Alert Eyes Bilateral: positive: PERRL, EOMI, No scleral icterus ENT: positive: No signs of dehydration Neck: positive: No JVD Respiratory: positive: No respiratory distress Abdomen: positive: Non-tender, No distention Neurologic/Psychiatric: positive: Oriented x3 Conclusion/Plan - Problem List (1) Gastrointestinal bleed Conclusion/Plan: history consistent with slow upper gi bleed over a week or two secondary to aspirin and excedrin use. no blood loss over the last several days she is hypokalemic and has chf. she is being treated and is improving. I explained she is no longer bleeding and upper endoscopy risk at this time out weighs the benefit. egd at this time is not recommended. ASA is 4 and bleeding has stopped. agree with current care with ppi med and avoiding aspirin and nsaids. diet of choice Qualifiers: GI bleed type/associated pathology: unspecified gastrointestinal hemorrhage type Qualified Code(s): K92.2 - Gastrointestinal hemorrhage, unspecified - Lab Results Fish Bones: 10/19/22 05:59 10/19/22 05:59
[2022-10-19] MEDS: LORazepam 1 MG TABLET PO SCH (21:19)
--- NOTE | 2022-10-19 22:36 | HISTORY & PHYSICAL EXAMINATION ---
Chief Complaint - Chief Complaint Chief Complaint: GI bleed. Reason for admission: SOB 2/2 CHF exacerbation History of Present Illness - Admitted From Admitted From:: ED - History Obtained From Records Reviewed: EMR History obtained from: Patient Exam Limitations: Telemedicine - History of Present Illness HPI Comment/Other: 76YOF c atrial fibrillation on Xarelto, CHF, hypertension, CAD c hx of MO who presented 4 days ago with report of bright red blood per rectum. Per d/w ED staff, patient was determined to have active GI bleed. Patient reports she was taking asa and Excedrin and Xarelto at the same time when she started to have GI bleed. She came into the ED and was transfuse few PRBCs. Patient stop bleed and was seen by general surgery and deemed ok for outpatient endoscopy procedure. Patient reports no further GI bleed. She however started to feel shortness of breath today especially when she got up in the bed. She did not have chest pain or palpitation. She has no fever. No URI sxs. No cough. No n/v. No dysuria. Blood work noted elevated BNP concern for acute CHF. Imaging also support acute CHF exacerbation. Patient subsequently placed on 2 liter NC. 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: reports: Breast cancer : reports: None HEENT: reports: None Psych: reports: Anxiety Musculoskeletal: reports: Osteoarthritis Derm: reports: None MRSA Hx?: No - Past Surgical History General: reports: Other Ortho: reports: Hip replacement, Knee replacement, Shoulder arthroplasty - Family & Social History Family History Comment/Other: No trend reported in the family Social History Notes: Non smoker - POLST Patient has POLST: No POLST Status: Full Code Meds/Allgy - Home Medications Home Medications: Ambulatory Orders Medication Instructions Recorded Confirmed Candesartan Cilexetil 1 tab PO DAILY 04/10/17 10/17/22 Felodipine [Felodipine ER] 1 tab PO DAILY 04/10/17 10/17/22 Hydroxychloroquine [Plaquenil] 200 mg PO BID 04/10/17 10/17/22 Omeprazole [PriLOSEC] 1 tab PO DAILY 04/10/17 10/17/22 Potassium Chloride 2.5 tab PO DAILY 04/10/17 10/17/22 Sertraline [Zoloft] 100 mg PO DAILY 04/10/17 10/17/22 carvediloL [Carvedilol] 50 mg PO DAILY 04/10/17 10/17/22 Furosemide [Lasix] 20 mg PO DAILY #14 tablet 08/14/22 10/17/22 Potassium Chloride [Klor-Con M10] 10 meq PO DAILY #14 tab 08/14/22 10/17/22 Rivaroxaban [Xarelto] 20 mg PO DAILY #30 tablet 08/14/22 10/17/22 HYDROmorphone [Dilaudid] 1 - 2 tab PO Q4H PRN #25 tablet 08/15/22 10/17/22 - Allergies Allergies/Adverse Reactions: Allergies Allergy/AdvReac Type Severity Reaction Status Date / Time codeine Allergy Unknown Verified 10/16/22 04:07 prochlorperazine Allergy Unknown Verified 10/16/22 04:07 [From Compazine] prochlorperazine edisylate * Allergy Unknown Verified 10/16/22 04:07 [From Compazine] prochlorperazine maleate * Allergy Unknown Verified 10/16/22 04:07 [From Compazine] Review of Systems - Constitutional Constitutional: denies: Fever - Cardiovascular Cariovascular: denies: Palpitations, Chest pain, Orthopnea - Respiratory Respiratory: reports: SOB with exertion. denies: Cough - Gastrointestinal Gastrointestinal: reports: Rectal bleeding. denies: Abdominal pain, Nausea, Vomiting - Genitourinary Genitourinary: denies: Dysuria Exam - Vital Signs Reviewed Vital Signs: Yes Vital Signs: Vital Signs x48h Pulse Resp BP Pulse Ox O2 Flow Rate 10/19/22 21:45 79 20 98 2 10/19/22 21:33 94 16 115/67 94 10/19/22 19:29 75 18 119/70 99 10/19/22 18:00 82 16 111/61 98 2 10/19/22 16:00 80 26 H 116/62 99 2 10/19/22 15:00 83 19 107/70 99 2 - Physical Exam General Appearance: positive: No acute distress, Alert Eyes Bilateral: positive: EOMI ENT: negative: Purulent nasal drainage Respiratory: positive: No respiratory distress, Breath sounds nml. negative: Wheezes, Rales, Rhonchi Cardiovascular: positive: Regular rate & rhythm Abdomen: positive: Non-tender, No distention. negative: Guarding Conclusion/Plan - Problem List (1) Acute hypoxemic respiratory failure Conclusion/Plan: acute hypoxemic resp failure 2/2 CHF exacerbation from blood transfusion. will manage with IV Lasix. continue breathing treatment. continue O2 support. tele monitoring. daily weight. fluid restrict. (2) CHF exacerbation Conclusion/Plan: acute hypoxemic resp failure 2/2 CHF exacerbation from blood transfusion. will manage with IV Lasix. continue breathing treatment. continue O2 support. tele monitoring. daily weight. fluid restrict. (3) Hypertension Conclusion/Plan: managed. continue home Coreg, Candesartan, and Lasix. monitor blood pressure c repeat vital checks Qualifiers: Hypertension type: primary hypertension Qualified Code(s): I10 - Essential (primary) hypertension (4) Afib Conclusion/Plan: rate controlled. continue coreg. hold anticoagulation 2/2 GI bleed. tele monitoring Qualifiers: Atrial fibrillation type: unspecified Qualified Code(s): I48.91 - Unspecified atrial fibrillation (5) Gastrointestinal bleed Conclusion/Plan: stable. no further bleed reported. hgb/hct stable. seen by gen surg and recommended outpatient endoscopy. monitor c cbc in am Qualifiers: GI bleed type/associated pathology: unspecified gastrointestinal hemorrhage type Qualified Code(s): K92.2 - Gastrointestinal hemorrhage, unspecified (6) Anemia Conclusion/Plan: anemia 2/2 GI bleed. monitor hgb/hct and transfuse for hgb<7. Gi bleed is stable as noted above. outpatient endoscopy per Gen surgery. Qualifiers: Anemia type: unspecified type Qualified Code(s): D64.9 - Anemia, unspecified - Lab Results Fish Bones: 10/19/22 05:59 10/19/22 05:59 - Diagnostic Imaging Results Diagnostic Imaging Results: positive: Final report reviewed - EKG Results EKG Interpreted Independently: No Core Measures - Anticipated LOS I expect patient to be DC'd or transferred within 96 hours.: No - DVT/VTE - Prophylaxis VTE/DVT Device ordered at admit?: Yes Not Ordered - Medical Reason: Contraindicated (Gi bleed) Telemedicine Consult Details - Provider Location & Consult Time Telemedicine consultation conducted via videoconferencing?: Yes List names and roles of persons who participated in consult:: 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
[2022-10-19] MEDS ORDERED: hydrALAZINE INJ 20 MG/ML VIAL IVP PRN (22:56)
[2022-10-20] MEDS: SODIUM CHLORIDE FLUSH 0.9% 10 ML SYRINGE IVP SCH ×3 (00:56→17:53)
[2022-10-20] MEDS: ACETAMINOPHEN 500 MG TABLET PO PRN ×3 (05:25→20:10)
[2022-10-20] MEDS ORDERED: diltiaZEM INJ 5 MG/ML VIAL IVP ONE (05:59)
--- NOTE | 2022-10-20 06:07 | PROVIDER PROGRESS NOTE ---
Progress Note patient has low-grade temperature. Patient is having generalized body aches. viral serologies negative so far. Will order blood culture and lactic acid. We will order IV Rocephin empirically. Patient also has A. fib RVR therefore 10 mg of IV Cardizem push is ordered.
[2022-10-20] MEDS ORDERED: SODIUM CHLORIDE 0.9% 1,000 ML IV ONE (07:07)
[2022-10-20] MEDS ORDERED: SODIUM CHLORIDE 0.9% 500 ML IV ONE (07:57)
[2022-10-20 08:15] LABS: BASOPHILS % (AUTO) 0.2 %; EOSINOPHILS # (AUTO) 0.1 10^3/uL (0.0-0.7); EOSINOPHILS % (AUTO) 0.4 %; HGB - HEMOGLOBIN 8.5 g/dL (12.0-16.0); LYMPHOCYTES # (AUTO) 0.3 10^3/uL (1.5-3.5); MEAN CORPUSCULAR HEMOGLOBIN 28.5 pg (27.0-31.0); MEAN CORPUSCULAR HGB CONC 31.5 g/dL (32.0-36.0); MEAN CORPUSCULAR VOLUME 90.6 fL (81.0-99.0); MEAN PLATELET VOLUME 9.1 fL (7.9-10.8); MONOCYTES # (AUTO) 0.5 10^3/uL (0.0-1.0); MONOCYTES % (AUTO) 3.4 %; NEUTROPHILS # (AUTO) 12.9 10^3/uL (1.5-6.6); NEUTROPHILS % (AUTO) 93.4 %; PLT - PLATELET COUNT 265 10^3/uL (130-450); RED BLOOD COUNT 2.98 10^6/uL (4.20-5.40); WHITE BLOOD COUNT 13.9 x10^3/uL (4.8-10.8)
[2022-10-20 08:36] LABS: ALBUMIN 2.7 g/dL (3.2-5.5); ALBUMIN/GLOBULIN RATIO 1.4 (1.0-2.2); BILIRUBIN,TOTAL 1.6 mg/dL (0.2-1.0); CALCIUM 7.6 mg/dL (8.5-10.3); CREATININE 1.1 mg/dL (0.4-1.0); POTASSIUM 2.8 mmol/L (3.5-5.0); TOTAL PROTEIN 4.7 g/dL (6.7-8.2)
--- NOTE | 2022-10-20 08:59 | PHARMACY PROGRESS NOTE ---
- Therapy Status Vancomycin regimen day #: 1 Therapy status: Awaiting steady state Basis for treatment: Empirical Treatment indication: SEPSIS Trough goal: 15-20 Concurrent antibiotics: CEFEPIME 2G Q12H, METRONIDAZOLE 500MG Q8H - ANA Risk Risk level for Acute Kidney Injury: High Acute Kidney Injury risk factors: Duration >7 days, Goal trough >15, Admission to ICU, Sepsis - Monitoring and Recommendation Clinical response to treatment: I&O Previous 24 hours 10/18/22 10/19/22 10/20/22 23:59 23:59 23:59 Intake Total 400 400 Output Total 1200 150 Balance -1200 400 250 Lab Results 10/20/22 10/20/22 10/19/22 08:06 08:06 05:59 ESR 24 BUN 20 14 Creatinine 1.1 H 1.0 Estimated GFR (MDRD) 48 L 54 L 10/17/22 10/16/22 10/16/22 05:51 15:56 03:57 ESR BUN 21 H 27 H 32 H Creatinine 1.0 1.1 H 1.4 H Estimated GFR (MDRD) 54 L 48 L 36 L Cultures 10/16/22 05:00 Stool Occult Blood - Final Monitoring plan: Daily serum creatinine (ADJBW=70KG, SCR=1 TODAY, CLCR~50ML/MIN. 2G LD @10AM 10/20/22, THEN 1.5GQ24H TROUGH 09/22/23 @0930)
[2022-10-20] MEDS ORDERED: NORepinephrine 3 MG in DEXTROSE 5% 97 ML IV SCH (09:00)
[2022-10-20] MEDS ORDERED: cefTRIAXone 1 GM in SODIUM CHLORIDE 0.9% MINIBAG 100 ML IV SCH (09:00)
--- NOTE | 2022-10-20 09:26 | XRAY Report ---
PROCEDURE: Chest for Line Placement INDICATIONS: line placement TECHNIQUE: One view of the chest was acquired. COMPARISON: None. FINDINGS: Surgical changes and devices: There is a central venous catheter, the tip of which is in the lower c avoatrial junction or superior right atrium. Lungs and pleura: Lung volumes are low. There are diffuse interstitial radiopacities bilaterally. Th ere may be a small left effusion. Mediastinum: The heart is enlarged, as before. Bones and chest wall: No suspicious bony lesions. Overlying soft tissues appear unremarkable. IMPRESSION: Central venous catheter as above. Diffuse interstitial radiopacities and cardiomegaly suggesting pulm onary edema. Reviewed by: Dana Zuñiga MD on 10/20/2022 9:25 AM PST Approved by: Dana Zuñiga MD on 10/20/2022 9:25 AM PST Station ID: [id number]
--- NOTE | 2022-10-20 09:27 | ANESTHESIA PROCEDURE NOTE ---
Anesth Central Line Template - Central Line Central Line Preparation: Consent Obtained, Time out completed, Ultrasound used, Sterile prep and drape Central line location: Right IJ Central line type: Triple lumen Central line catheter tip site resides: Atrium, right Central line aftercare: Chlorhexidine disc placed, Secured, Placement confirmed, No pneumothorax, Bundle checklist complete, Pt tolerated well
--- NOTE | 2022-10-20 09:30 | CONSULTATION NOTE ---
Consultation Report: consulted by hospitalist Dr. Brandon for CVL. Informed consent obtained. R IJ CVL placed with U/S guidance. Sterile technique maintained. Pt tolerated well. Port CXR to confirm placement. VSS. NAC
[2022-10-20] MEDS: SERTRALINE 50 MG TABLET PO SCH (09:41)
[2022-10-20] MEDS: carvediloL 12.5 MG TABLET PO SCH ×2 (09:42→20:22)
[2022-10-20] MEDS: PANTOPRAZOLE 40 MG TABLET PO SCH (09:42)
[2022-10-20] MEDS: metroNIDAZOLE 500 MG/100 ML 500 MG/100 ML BAG IV SCH ×2 (09:47→17:31)
[2022-10-20] MEDS: CEFEPIME 2 GM in SODIUM CHLORIDE 0.9% MINIBAG 100 ML IV SCH ×2 (10:00→20:35)
[2022-10-20] MEDS ORDERED: VANCOMYCIN INJ 2 GM in SODIUM CHLORIDE 0.9% 500 ML IV ONE (10:00)
[2022-10-20] MEDS: FUROSEMIDE 40 MG/4 ML VIAL IVP SCH (10:06)
[2022-10-20] MEDS: SODIUM CHLORIDE FLUSH 0.9% 10 ML SYRINGE IVP PRN ×3 (10:13→17:32)
[2022-10-20] MEDS: ONDANSETRON 4 MG/2 ML VIAL IVP PRN (10:32)
[2022-10-20] MEDS: PANTOPRAZOLE 40 MG VIAL IVP SCH (10:46)
[2022-10-20] MEDS ORDERED: MAGNESIUM SULFATE 2 GRAM 2 GM/50 ML BAG IV ONE (11:24)
[2022-10-20] MEDS: POTASSIUM CHLOR 20 MEQ/100 ML 20 MEQ/100 ML BAG IV SCH ×4 (12:27→23:02)
--- NOTE | 2022-10-20 13:06 | PHARMACY PROGRESS NOTE ---
- Best Possible Medication History Admit Date and Time: 10/19/221 Processed by: Pharmacy Medication History completed: Yes Patient Interview: Completed Secondary Source(s): Caregiver (talked to Bill), Pharmacy records As the person ultimately responsible for medication therapy, providers are able to order a medication from an existing home medication list in [facility] via the "Reconcile Routine" prior to Confirmation of that medication by support manager. Such practice is discouraged except when the physician, in their clinical judgment, deems that a medical need exists for a medication without regard to previous use.
[2022-10-20] MEDS: HYDROXYCHLOROQUINE 200 MG TABLET PO SCH ×2 (14:22→20:22)
--- NOTE | 2022-10-20 15:27 | PROVIDER PROGRESS NOTE ---
Subjective - Prog Note Date Prog Note Date: 10/20/22 Prog Note Time: 15:21 - Subjective Subjective: 76 yo female with PMH of atrial fibrillation on Xarelto, CHF, hypertension, CAD c hx of [place] who presented to the ED on 10/16/22 with report of bright red blood per rectum. Patient reports she was taking asa and Excedrin and Xarelto at the same time when she started to have GI bleed. Occult stool test positive. She came into the ED and was transfused 3 unit PRBCs 10/16/22. Patient stop bleed and was seen by general surgery and deemed ok for outpatient endoscopy procedure. Since that time she her blood pressure has been transiently low including this morning 10/20/22. SBP 70s, central line ordered, and transferred to ICU with levophed. Current Medications - Current Medications Current Medications: Active Medications Acetaminophen (Acetaminophen 500 Mg Tablet) 1,000 mg PO Q6H PRN PRN Reason: Mild Pain Or Fever>38c(100.4f) Last Admin: 10/20/22 14:22 Dose: 1,000 mg Albuterol/Ipratropium (Ipratropium/Albuterol 3 Ml Neb) 3 ml INH Q4HR PRN PRN Reason: Shortness of Air/Wheezing Carvedilol (Carvedilol 12.5 Mg Tablet) 25 mg PO BID [facility] Last Admin: 10/20/22 09:42 Dose: 25 mg Furosemide (Furosemide 40 Mg/4 Ml Vial) 40 mg IVP DAILY [facility] Last Admin: 10/20/22 10:06 Dose: 40 mg Hydralazine HCl (Hydralazine Inj 20 Mg/Ml Vial) 10 mg IVP Q6HR PRN PRN Reason: Hypertensive Emergency Hydroxychloroquine Sulfate (Hydroxychloroquine 200 Mg Tablet) 200 mg PO BID [facility] Last Admin: 10/20/22 14:22 Dose: 200 mg Cefepime HCl 2 gm/ Sodium (Chloride) 100 mls @ 200 mls/hr IV Q12H [facility] Last Infusion: 10/20/22 10:30 Dose: Infused Metronidazole (Flagyl 500 Mg/100 Ml) 500 mg in 100 mls @ 100 mls/hr IV Q8H [facility] Last Infusion: 10/20/22 10:50 Dose: Infused Vancomycin HCl 1 gm/Vancomycin HCl 500 mg/ Sodium Chloride 500 mls @ 250 mls/hr IV Q24H [facility] Norepinephrine Bitartrate 8 mg (/ Dextrose) 250 mls @ 15 mls/hr IV .[id number] [facility]; Protocol Ondansetron HCl (Ondansetron 4 Mg/2 Ml Vial) 4 mg IVP Q6HR PRN PRN Reason: Nausea / Vomiting Last Admin: 10/20/22 10:32 Dose: 4 mg Pantoprazole Sodium (Pantoprazole 40 Mg Vial) 40 mg IVP DAILY [facility] Last Admin: 10/20/22 10:46 Dose: Not Given Pantoprazole Sodium (Pantoprazole 40 Mg Tablet) 40 mg PO DAILY [facility] Last Admin: 10/20/22 09:42 Dose: 40 mg Sertraline HCl (Sertraline 50 Mg Tablet) 100 mg PO DAILY [facility] Last Admin: 10/20/22 09:41 Dose: 100 mg Sodium Chloride (Sodium Chloride Flush 0.9% 10 Ml Syringe) 10 ml IVP PRN PRN PRN Reason: NEEDED PER PROVIDER ORDERS Last Admin: 10/20/22 10:35 Dose: 10 ml Sodium Chloride (Sodium Chloride Flush 0.9% 10 Ml Syringe) 10 ml IVP 0100,0900,1700 [facility] Last Admin: 10/20/22 14:23 Dose: Not Given Candesartan Cilexetil 1 tab PO DAILY 04/10/17 Hydroxychloroquine [Plaquenil] 200 mg PO BID 04/10/17 Omeprazole [PriLOSEC] 1 tab PO DAILY 04/10/17 Potassium Chloride 2.5 tab PO DAILY 04/10/17 Sertraline [Zoloft] 100 mg PO DAILY 04/10/17 carvediloL [Carvedilol] 25 mg PO BID 04/10/17 Acetaminophen [Tylenol] 1 tab PO BID PRN 10/20/22 Atorvastatin [Lipitor] 1 tab PO HS 10/20/22 Bifidobacterium Infantis [Align] 1 tab PO DAILY 10/20/22 Calcium Carbonate [Tums (Calcium Carbonate 500mg)] 2 tab PO DAILY PRN 10/20/22 Cholecalciferol [Vitamin D3] 1 cap PO DAILY 10/20/22 LORazepam [Lorazepam] 1 tab PO HS PRN 10/20/22 Magnesium Hydroxide [Milk of Magnesia] 10 ml PO DAILY PRN 10/20/22 Multivitamin [Theragran] 1 tab PO DAILY 10/20/22 Naloxone HCl Nasal [Narcan Nasal] 1 spray HELIO PRN PRN 10/20/22 Ondansetron Odt [Zofran Odt] 1 tab PO BID PRN 10/20/22 Vitamin B Complex 1 tab PO DAILY 10/20/22 polyethylene glycoL 3350 [Polyethylene Glycol 3350] 1 packet PO DAILY PRN 10/20/22 Objective - Vital Signs/Intake & Output Vital Signs: Vital Signs x48h Temp Pulse Resp BP Pulse Ox O2 Flow Rate 10/20/22 13:00 39.4 C H 111 H 28 H 119/70 2 10/20/22 09:00 98 17 125/53 L 100 2 10/20/22 08:33 132/54 H 99 2 10/20/22 08:32 81 118/39 L 98 10/20/22 08:30 96 92/35 L 98 10/20/22 08:15 116 H 59/41 L 96 10/20/22 08:00 94 69/52 L 96 10/20/22 07:45 90 18 76/47 L 97 10/20/22 07:30 83 77/44 L 97 2 Intake & Output: Intake & Output 10/17/22 10/18/22 10/19/22 10/20/22 23:59 23:59 23:59 23:59 Intake Total 2120 400 800 Output Total 1600 1200 250 Balance 520 -1200 400 550 - Objective General Appearance: positive: No acute distress Eyes Bilateral: positive: Normal inspection ENT: positive: No signs of dehydration Neck: positive: Nml inspection Respiratory: positive: Breath sounds nml Cardiovascular: positive: Irregularly irregular, Tachycardia Peripheral Pulses: 2+ Radial (R), 2+ Radial (L), 2+ Dorsalis pedis (R), 2+ Dorsalis pedis (L) Abdomen: positive: Nml bowel sounds Skin: positive: Color nml, Warm, Dry Extremities: positive: Non-tender, No pedal edema Neurologic/Psychiatric: positive: Oriented x3 - Lab Results Fish Bones: 10/21/22 16:05 10/21/22 04:20 Other Labs: Lab Results x24hrs 10/20/22 10/20/22 10/20/22 Range/Units 08:06 08:06 08:06 WBC (4.8-10.8) x10^3/uL RBC (4.20-5.40) 10^6/uL Hgb (12.0-16.0) g/dL Hct (37.0-47.0) % MCV (81.0-99.0) fL MCH (27.0-31.0) pg MCHC (32.0-36.0) g/dL RDW (12.0-15.0) % Plt Count (130-450) 10^3/uL MPV (7.9-10.8) fL Neut # (Auto) (1.5-6.6) 10^3/uL Lymph # (Auto) (1.5-3.5) 10^3/uL [place] # (Auto) (0.0-1.0) 10^3/uL Eos # (Auto) (0.0-0.7) 10^3/uL Baso # (Auto) (0.0-0.1) 10^3/uL Absolute Nucleated RBC x10^3/uL Nucleated RBC % /100WBC ESR 24 (0-30) mm/Hr Sodium (135-145) mmol/L Potassium (3.5-5.0) mmol/L Chloride (101-111) mmol/L Carbon Dioxide (21-32) mmol/L Anion Gap (6-13) BUN (6-20) mg/dL Creatinine (0.4-1.0) mg/dL Estimated GFR (MDRD) (>89) Glucose (70-100) mg/dL Lactic Acid (0.5-2.2) mmol/L Calcium (8.5-10.3) mg/dL Phosphorus 3.1 (2.5-4.6) mg/dL Magnesium 2.1 (1.7-2.8) mg/dL Total Bilirubin (0.2-1.0) mg/dL AST (10-42) IU/L ALT (10-60) IU/L Alkaline Phosphatase (42-121) IU/L Troponin I High Sens (2.3-14.8) ng/L C-Reactive Protein (0-1.0) mg/dL Total Protein (6.7-8.2) g/dL Albumin (3.2-5.5) g/dL Globulin (2.1-4.2) g/dL Albumin/Globulin Ratio (1.0-2.2) 10/20/22 10/20/22 10/20/22 Range/Units 08:06 08:06 08:06 WBC 13.9 H (4.8-10.8) x10^3/uL RBC 2.98 L (4.20-5.40) 10^6/uL Hgb 8.5 L (12.0-16.0) g/dL Hct 27.0 L (37.0-47.0) % MCV 90.6 (81.0-99.0) fL MCH 28.5 (27.0-31.0) pg MCHC 31.5 L (32.0-36.0) g/dL RDW 16.0 H (12.0-15.0) % Plt Count 265 (130-450) 10^3/uL MPV 9.1 (7.9-10.8) fL Neut # (Auto) 12.9 H (1.5-6.6) 10^3/uL Lymph # (Auto) 0.3 L (1.5-3.5) 10^3/uL [place] # (Auto) 0.5 (0.0-1.0) 10^3/uL Eos # (Auto) 0.1 (0.0-0.7) 10^3/uL Baso # (Auto) 0.0 (0.0-0.1) 10^3/uL Absolute Nucleated RBC 0.00 x10^3/uL Nucleated RBC % 0.0 /100WBC ESR (0-30) mm/Hr Sodium 125 L (135-145) mmol/L Potassium 2.8 L (3.5-5.0) mmol/L Chloride 87 L (101-111) mmol/L Carbon Dioxide 30 (21-32) mmol/L Anion Gap 8.0 (6-13) BUN 20 (6-20) mg/dL Creatinine 1.1 H (0.4-1.0) mg/dL Estimated GFR (MDRD) 48 L (>89) Glucose 112 H (70-100) mg/dL Lactic Acid (0.5-2.2) mmol/L Calcium 7.6 L (8.5-10.3) mg/dL Phosphorus (2.5-4.6) mg/dL Magnesium (1.7-2.8) mg/dL Total Bilirubin 1.6 H (0.2-1.0) mg/dL AST 26 (10-42) IU/L ALT 31 (10-60) IU/L Alkaline Phosphatase 83 (42-121) IU/L Troponin I High Sens 75.6 H* (2.3-14.8) ng/L C-Reactive Protein 18.0 H (0-1.0) mg/dL Total Protein 4.7 L (6.7-8.2) g/dL Albumin 2.7 L (3.2-5.5) g/dL Globulin 2.0 L (2.1-4.2) g/dL Albumin/Globulin Ratio 1.4 (1.0-2.2) 10/20/22 Range/Units 06:20 WBC (4.8-10.8) x10^3/uL RBC (4.20-5.40) 10^6/uL Hgb (12.0-16.0) g/dL Hct (37.0-47.0) % MCV (81.0-99.0) fL MCH (27.0-31.0) pg MCHC (32.0-36.0) g/dL RDW (12.0-15.0) % Plt Count (130-450) 10^3/uL MPV (7.9-10.8) fL Neut # (Auto) (1.5-6.6) 10^3/uL Lymph # (Auto) (1.5-3.5) 10^3/uL [place] # (Auto) (0.0-1.0) 10^3/uL Eos # (Auto) (0.0-0.7) 10^3/uL Baso # (Auto) (0.0-0.1) 10^3/uL Absolute Nucleated RBC x10^3/uL Nucleated RBC % /100WBC ESR (0-30) mm/Hr Sodium (135-145) mmol/L Potassium (3.5-5.0) mmol/L Chloride (101-111) mmol/L Carbon Dioxide (21-32) mmol/L Anion Gap (6-13) BUN (6-20) mg/dL Creatinine (0.4-1.0) mg/dL Estimated GFR (MDRD) (>89) Glucose (70-100) mg/dL Lactic Acid 1.2 (0.5-2.2) mmol/L Calcium (8.5-10.3) mg/dL Phosphorus (2.5-4.6) mg/dL Magnesium (1.7-2.8) mg/dL Total Bilirubin (0.2-1.0) mg/dL AST (10-42) IU/L ALT (10-60) IU/L Alkaline Phosphatase (42-121) IU/L Troponin I High Sens (2.3-14.8) ng/L C-Reactive Protein (0-1.0) mg/dL Total Protein (6.7-8.2) g/dL Albumin (3.2-5.5) g/dL Globulin (2.1-4.2) g/dL Albumin/Globulin Ratio (1.0-2.2) Assessment/Plan - Problem List (2) Gastrointestinal bleed Qualifiers: GI bleed type/associated pathology: unspecified gastrointestinal hemorrhage type Qualified Code(s): K92.2 - Gastrointestinal hemorrhage, unspecified (3) CHF (congestive heart failure) Qualifiers: Heart failure type: diastolic Heart failure chronicity: acute Qualified Code(s): I50.31 - Acute diastolic (congestive) heart failure (4) Afib Qualifiers: Atrial fibrillation type: longstanding persistent Qualified Code(s): I48.11 - Longstanding persistent atrial fibrillation (5) Shoulder injury Qualifiers: Encounter type: initial encounter Laterality: left Qualified Code(s): S49.92XA - Unspecified injury of left shoulder and upper arm, initial encounter History of Present Illness - History of Present Illness Allergies/Adverse Reactions: Allergies Allergy/AdvReac Type Severity Reaction Status Date / Time codeine Allergy Unknown Verified 10/16/22 04:07 prochlorperazine Allergy Unknown Verified 10/16/22 04:07 [From Compazine] prochlorperazine edisylate * Allergy Unknown Verified 10/16/22 04:07 [From Compazine] prochlorperazine maleate * Allergy Unknown Verified 10/16/22 04:07 [From Compazine] MSG AdvReac Emesis Uncoded 10/20/22 14:21 Home Medications: Ambulatory Orders Acetaminophen [Tylenol] 1 tab PO BID PRN 10/20/22 Atorvastatin [Lipitor] 1 tab PO HS 10/20/22 Bifidobacterium Infantis [Align] 1 tab PO DAILY 10/20/22 Calcium Carbonate [Tums (Calcium Carbonate 500mg)] 2 tab PO DAILY PRN 10/20/22 Cholecalciferol [Vitamin D3] 1 cap PO DAILY 10/20/22 LORazepam [Lorazepam] 1 tab PO HS PRN 10/20/22 Magnesium Hydroxide [Milk of Magnesia] 10 ml PO DAILY PRN 10/20/22 Multivitamin [Theragran] 1 tab PO DAILY 10/20/22 Naloxone HCl Nasal [Narcan Nasal] 1 spray HELIO PRN PRN 10/20/22 Ondansetron Odt [Zofran Odt] 1 tab PO BID PRN 10/20/22 Vitamin B Complex 1 tab PO DAILY 10/20/22 polyethylene glycoL 3350 [Polyethylene Glycol 3350] 1 packet PO DAILY PRN 10/20/22 Assessment/Plan - Problem List (2) Gastrointestinal bleed Qualifiers: GI bleed type/associated pathology: unspecified gastrointestinal hemorrhage type Qualified Code(s): K92.2 - Gastrointestinal hemorrhage, unspecified (3) CHF (congestive heart failure) Qualifiers: Heart failure type: diastolic Heart failure chronicity: acute Qualified Code(s): I50.31 - Acute diastolic (congestive) heart failure (4) Afib Qualifiers: Atrial fibrillation type: longstanding persistent Qualified Code(s): I48.11 - Longstanding persistent atrial fibrillation (5) Shoulder injury Qualifiers: Encounter type: initial encounter Laterality: left Qualified Code(s): S49.92XA - Unspecified injury of left shoulder and upper arm, initial encounter - Current Meds Current Meds: Current Medications Generic Name Dose Route Start Last Admin Trade Name Freq PRN Reason Stop Dose Admin Acetaminophen 1,000 mg 10/16/22 15:54 10/20/22 14:22 Acetaminophen 500 Mg Tablet PO 1,000 mg Q6H PRN Administration Mild Pain Or Fever>38c(100.4f) Carvedilol 25 mg 10/16/22 21:00 10/20/22 09:42 Carvedilol 12.5 Mg Tablet PO 25 mg BID BRITT Administration Furosemide 40 mg 10/20/22 09:00 10/20/22 10:06 Furosemide 40 Mg/4 Ml Vial IVP 40 mg DAILY [facility] Administration Hydroxychloroquine Sulfate 200 mg 10/20/22 09:00 10/20/22 14:22 Hydroxychloroquine 200 Mg Tablet PO 200 mg BID [facility] Administration Cefepime HCl 2 gm/ Sodium 100 mls @ 200 mls/hr 10/20/22 08:30 10/20/22 10:30 Chloride IV Infused Q12H [facility] Infusion Metronidazole 500 mg in 100 mls @ 100 mls/hr 10/20/22 09:00 10/20/22 17:31 Flagyl 500 Mg/100 Ml IV 100 mls/hr Q8H [facility] Administration Ondansetron HCl 4 mg 10/16/22 15:54 10/20/22 10:32 Ondansetron 4 Mg/2 Ml Vial IVP 4 mg Q6HR PRN Administration Nausea / Vomiting Pantoprazole Sodium 40 mg 10/16/22 08:00 10/20/22 10:46 Pantoprazole 40 Mg Vial IVP Not Given DAILY [facility]ITT Pantoprazole Sodium 40 mg 10/20/22 09:00 10/20/22 09:42 Pantoprazole 40 Mg Tablet PO 40 mg DAILY [facility] Administration Sertraline HCl 100 mg 10/17/22 09:00 10/20/22 09:41 Sertraline 50 Mg Tablet PO 100 mg DAILY [facility] Administration Sodium Chloride 10 ml 10/19/22 22:24 10/20/22 17:32 Sodium Chloride Flush 0.9% 10 Ml Syringe IVP 30 ml PRN PRN Administration NEEDED PER PROVIDER ORDERS Sodium Chloride 10 ml 10/20/22 01:00 10/20/22 17:53 Sodium Chloride Flush 0.9% 10 Ml Syringe IVP Not Given 0100,0900,1700 [facility] - Lab Result Fish Bone Diagrams: 10/21/22 16:05 10/21/22 04:20 - EKG Results EKG Interpreted Independently: Yes EKG Comparison: Old EKG unavailable EKG Findings: Afib with rapid ventricular rate. - Additional Planning Condition/Complexity: Unstable
[2022-10-20] MEDS ORDERED: PROMETHAZINE 25 MG TABLET PO PRN (18:22)
[2022-10-20] MEDS: PROMETHAZINE INJ 25 MG in SODIUM CHLORIDE 0.9% 50 ML IV PRN (19:40)
[2022-10-20] MEDS: NORepinephrine 8 MG in DEXTROSE 5% 250ML IV SCH (19:44)
[2022-10-20] MEDS: NYSTATIN POWDER 15 GM TOP SCH (20:22)
[2022-10-20] MEDS: APIXABAN 5 MG TABLET PO SCH (20:22)
[2022-10-21] MEDS: NORepinephrine 8 MG in DEXTROSE 5% 250ML IV SCH ×2 (00:06→12:07)
--- NOTE | 2022-10-21 00:07 | PROVIDER PROGRESS NOTE ---
Subjective - Prog Note Date Prog Note Date: 10/21/22 Prog Note Time: 00:05 - Subjective Pt reports feeling: Worse (worse shoulder pain) Subjective: RN paged to report patient has chronic bilateral shoulder pain. She is on dilaudid at home per RN. Currently only acetaminophen and not controlling pain. requesting something stronger for pain control. Objective - Vital Signs/Intake & Output Vital Signs: Vital Signs x48h Temp Pulse Resp BP Pulse Ox O2 Flow Rate 10/20/22 22:00 37.0 C 100 19 104/59 L 94 10/20/22 21:57 98/59 L 10/20/22 21:00 97 26 H 92/52 L 99 1 10/20/22 19:20 1 10/20/22 17:00 113 H 22 91/59 L 100 1 10/20/22 16:24 37.8 C 100 25 H 92/59 L 93 2 Intake & Output: Intake & Output 10/18/22 10/19/22 10/20/22 10/21/22 23:59 23:59 23:59 23:59 Intake Total 400 2375 Output Total 1200 305 Balance -9322 446 5068 - Lab Results Fish Bones: 10/20/22 08:06 10/20/22 17:41 Other Labs: Lab Results x24hrs 10/20/22 10/20/22 10/20/22 Range/Units 17:41 13:13 08:06 WBC (4.8-10.8) x10^3/uL RBC (4.20-5.40) 10^6/uL Hgb (12.0-16.0) g/dL Hct (37.0-47.0) % MCV (81.0-99.0) fL MCH (27.0-31.0) pg MCHC (32.0-36.0) g/dL RDW (12.0-15.0) % Plt Count (130-450) 10^3/uL MPV (7.9-10.8) fL Neut # (Auto) (1.5-6.6) 10^3/uL Lymph # (Auto) (1.5-3.5) 10^3/uL [place] # (Auto) (0.0-1.0) 10^3/uL Eos # (Auto) (0.0-0.7) 10^3/uL Baso # (Auto) (0.0-0.1) 10^3/uL Absolute Nucleated RBC x10^3/uL Nucleated RBC % /100WBC ESR (0-30) mm/Hr Sodium (135-145) mmol/L Potassium 3.5 (3.5-5.0) mmol/L Chloride (101-111) mmol/L Carbon Dioxide (21-32) mmol/L Anion Gap (6-13) BUN (6-20) mg/dL Creatinine (0.4-1.0) mg/dL Estimated GFR (MDRD) (>89) Glucose (70-100) mg/dL Lactic Acid (0.5-2.2) mmol/L Calcium (8.5-10.3) mg/dL Phosphorus (2.5-4.6) mg/dL Magnesium 2.1 (1.7-2.8) mg/dL Total Bilirubin (0.2-1.0) mg/dL AST (10-42) IU/L ALT (10-60) IU/L Alkaline Phosphatase (42-121) IU/L Troponin I High Sens (2.3-14.8) ng/L C-Reactive Protein (0-1.0) mg/dL Total Protein (6.7-8.2) g/dL Albumin (3.2-5.5) g/dL Globulin (2.1-4.2) g/dL Albumin/Globulin Ratio (1.0-2.2) Nasal Screen MRSA (PCR) NEGATIVE (NEGATIVE) 10/20/22 10/20/22 10/20/22 Range/Units 08:06 08:06 08:06 WBC (4.8-10.8) x10^3/uL RBC (4.20-5.40) 10^6/uL Hgb (12.0-16.0) g/dL Hct (37.0-47.0) % MCV (81.0-99.0) fL MCH (27.0-31.0) pg MCHC (32.0-36.0) g/dL RDW (12.0-15.0) % Plt Count (130-450) 10^3/uL MPV (7.9-10.8) fL Neut # (Auto) (1.5-6.6) 10^3/uL Lymph # (Auto) (1.5-3.5) 10^3/uL [place] # (Auto) (0.0-1.0) 10^3/uL Eos # (Auto) (0.0-0.7) 10^3/uL Baso # (Auto) (0.0-0.1) 10^3/uL Absolute Nucleated RBC x10^3/uL Nucleated RBC % /100WBC ESR 24 (0-30) mm/Hr Sodium 125 L (135-145) mmol/L Potassium 2.8 L (3.5-5.0) mmol/L Chloride 87 L (101-111) mmol/L Carbon Dioxide 30 (21-32) mmol/L Anion Gap 8.0 (6-13) BUN 20 (6-20) mg/dL Creatinine 1.1 H (0.4-1.0) mg/dL Estimated GFR (MDRD) 48 L (>89) Glucose 112 H (70-100) mg/dL Lactic Acid (0.5-2.2) mmol/L Calcium 7.6 L (8.5-10.3) mg/dL Phosphorus 3.1 (2.5-4.6) mg/dL Magnesium (1.7-2.8) mg/dL Total Bilirubin 1.6 H (0.2-1.0) mg/dL AST 26 (10-42) IU/L ALT 31 (10-60) IU/L Alkaline Phosphatase 83 (42-121) IU/L Troponin I High Sens (2.3-14.8) ng/L C-Reactive Protein 18.0 H (0-1.0) mg/dL Total Protein 4.7 L (6.7-8.2) g/dL Albumin 2.7 L (3.2-5.5) g/dL Globulin 2.0 L (2.1-4.2) g/dL Albumin/Globulin Ratio 1.4 (1.0-2.2) Nasal Screen MRSA (PCR) (NEGATIVE) 10/20/22 10/20/22 10/20/22 Range/Units 08:06 08:06 06:20 WBC 13.9 H (4.8-10.8) x10^3/uL RBC 2.98 L (4.20-5.40) 10^6/uL Hgb 8.5 L (12.0-16.0) g/dL Hct 27.0 L (37.0-47.0) % MCV 90.6 (81.0-99.0) fL MCH 28.5 (27.0-31.0) pg MCHC 31.5 L (32.0-36.0) g/dL RDW 16.0 H (12.0-15.0) % Plt Count 265 (130-450) 10^3/uL MPV 9.1 (7.9-10.8) fL Neut # (Auto) 12.9 H (1.5-6.6) 10^3/uL Lymph # (Auto) 0.3 L (1.5-3.5) 10^3/uL [place] # (Auto) 0.5 (0.0-1.0) 10^3/uL Eos # (Auto) 0.1 (0.0-0.7) 10^3/uL Baso # (Auto) 0.0 (0.0-0.1) 10^3/uL Absolute Nucleated RBC 0.00 x10^3/uL Nucleated RBC % 0.0 /100WBC ESR (0-30) mm/Hr Sodium (135-145) mmol/L Potassium (3.5-5.0) mmol/L Chloride (101-111) mmol/L Carbon Dioxide (21-32) mmol/L Anion Gap (6-13) BUN (6-20) mg/dL Creatinine (0.4-1.0) mg/dL Estimated GFR (MDRD) (>89) Glucose (70-100) mg/dL Lactic Acid 1.2 (0.5-2.2) mmol/L Calcium (8.5-10.3) mg/dL Phosphorus (2.5-4.6) mg/dL Magnesium (1.7-2.8) mg/dL Total Bilirubin (0.2-1.0) mg/dL AST (10-42) IU/L ALT (10-60) IU/L Alkaline Phosphatase (42-121) IU/L Troponin I High Sens 75.6 H* (2.3-14.8) ng/L C-Reactive Protein (0-1.0) mg/dL Total Protein (6.7-8.2) g/dL Albumin (3.2-5.5) g/dL Globulin (2.1-4.2) g/dL Albumin/Globulin Ratio (1.0-2.2) Nasal Screen MRSA (PCR) (NEGATIVE) ABX Reporting Has patient been on IV antibiotics over the past 48 hours?: Yes Assessment/Plan - Problem List (1) Shoulder pain, bilateral Impression: chronic shoulder pain on opioids at home. will cover with norden for now and reassess. Qualifiers: Chronicity: chronic Qualified Code(s): M25.511 - Pain in right shoulder; M25.512 - Pain in left shoulder; G89.29 - Other chronic pain (3) Hypertension Qualifiers: Hypertension type: primary hypertension Qualified Code(s): I10 - Essential (primary) hypertension (4) Afib Qualifiers: Atrial fibrillation type: unspecified Qualified Code(s): I48.91 - Unspecified atrial fibrillation
[2022-10-21] MEDS: HYDROcod/ACETAM 5/325 MG TABLET PO PRN ×3 (00:13→20:20)
[2022-10-21] MEDS: POTASSIUM CHLOR 20 MEQ/100 ML 20 MEQ/100 ML BAG IV SCH (00:17)
[2022-10-21] MEDS: METOPROLOL 5 MG/5 ML VIAL IVP PRN ×2 (01:00→08:26)
[2022-10-21] MEDS: metroNIDAZOLE 500 MG/100 ML 500 MG/100 ML BAG IV SCH (01:04)
[2022-10-21] MEDS: SODIUM CHLORIDE FLUSH 0.9% 10 ML SYRINGE IVP SCH ×4 (01:04→23:35)
[2022-10-21] MEDS: SODIUM CHLORIDE FLUSH 0.9% 10 ML SYRINGE IVP PRN ×2 (04:13→04:19)
[2022-10-21 04:41] LABS: BASOPHILS % (AUTO) 0.1 %; HCT - HEMATOCRIT 25.4 % (37.0-47.0); HGB - HEMOGLOBIN 7.8 g/dL (12.0-16.0); LYMPHOCYTES # (AUTO) 0.2 10^3/uL (1.5-3.5); LYMPHOCYTES % (AUTO) 1.4 %; MEAN CORPUSCULAR HEMOGLOBIN 28.2 pg (27.0-31.0); MEAN CORPUSCULAR HGB CONC 30.7 g/dL (32.0-36.0); MEAN CORPUSCULAR VOLUME 91.7 fL (81.0-99.0); MEAN PLATELET VOLUME 9.5 fL (7.9-10.8); MONOCYTES # (AUTO) 0.4 10^3/uL (0.0-1.0); NEUTROPHILS # (AUTO) 11.1 10^3/uL (1.5-6.6); NEUTROPHILS % (AUTO) 93.9 %; PLT - PLATELET COUNT 225 10^3/uL (130-450); RED BLOOD COUNT 2.77 10^6/uL (4.20-5.40); RED CELL DISTRIBUTION WIDTH 16.2 % (12.0-15.0); WHITE BLOOD COUNT 11.8 x10^3/uL (4.8-10.8)
[2022-10-21 04:49] LABS: CALCIUM, IONIZED 1.07 mmol/L (1.15-1.33); VBG PH 7.394 (7.31-7.41)
[2022-10-21 04:57] LABS: ALBUMIN 2.4 g/dL (3.2-5.5); BILIRUBIN,TOTAL 1.2 mg/dL (0.2-1.0); CALCIUM 7.8 mg/dL (8.5-10.3); CREATININE 1.3 mg/dL (0.4-1.0); POTASSIUM 3.6 mmol/L (3.5-5.0); TOTAL PROTEIN 4.7 g/dL (6.7-8.2)
[2022-10-21] MEDS: FUROSEMIDE 40 MG/4 ML VIAL IVP SCH (08:29)
[2022-10-21] MEDS: NYSTATIN POWDER 15 GM TOP SCH ×2 (08:31→20:20)
[2022-10-21] MEDS: SERTRALINE 50 MG TABLET PO SCH (08:31)
[2022-10-21] MEDS: PANTOPRAZOLE 40 MG TABLET PO SCH (08:32)
[2022-10-21] MEDS: carvediloL 12.5 MG TABLET PO SCH ×2 (08:32→20:20)
[2022-10-21] MEDS: APIXABAN 5 MG TABLET PO SCH ×2 (08:32→20:20)
[2022-10-21] MEDS: CEFEPIME 2 GM in SODIUM CHLORIDE 0.9% MINIBAG 100 ML IV SCH ×2 (08:33→19:47)
[2022-10-21] MEDS: HYDROXYCHLOROQUINE 200 MG TABLET PO SCH ×2 (09:30→20:20)
[2022-10-21] MEDS ORDERED: VANCOMYCIN INJ 1 GM, VANCOMYCIN INJ 500 MG in SODIUM CHLORIDE 0.9% 500 ML IV SCH (10:00)
[2022-10-21] MEDS: PANTOPRAZOLE 40 MG VIAL IVP SCH (10:23)
--- NOTE | 2022-10-21 11:58 | PROVIDER PROGRESS NOTE ---
Subjective - Prog Note Date Prog Note Date: 10/21/22 Prog Note Time: 11:56 - Subjective Subjective: Gaye was admitted on 10/16/22 from the ED following a week of GI bleed. On xarelto for Afib, was given 3 units PRBCs. Yesterday was hypotensive, had tem perature of 39.4C, admitted to ICU and central line placed. Abx ordered. Overnight she became hypotensive again with MAPs in the low 60s. Today she is awake communicative but continues to have labile blood pressures, no temperature today. Blood cultures consistently growing gram negative vernell illi. Metronidazole and vancomycin stopped. I anticipate that she will need to remain in the ICU for the next 24hrs and that her hospitalization will require a length of stay past two midnights. She was sitting up in chair today, she continues to have discomfort form her L shoulder. Objective - Vital Signs/Intake & Output Reviewed Vital Signs: Yes Vital Signs: Vital Signs x48h Temp Pulse Resp BP BP Pulse Ox O2 Flow Rate 10/21/22 10:00 100 23 93/70 96 10/21/22 09:00 102 H 24 93/70 102/51 L 98 10/21/22 08:56 93/70 10/21/22 08:26 125/76 10/21/22 08:00 36.9 C 92 24 125/76 100 10/21/22 07:00 78 20 93/59 L 100 1 10/21/22 06:00 88 15 110/79 99 1 10/21/22 05:00 91 21 106/66 100 2 10/21/22 04:00 37.2 C 89 21 105/70 100 2 Intake & Output: Intake & Output 10/18/22 10/19/22 10/20/22 10/21/22 23:59 23:59 23:59 23:59 Intake Total 400 2375 792.938 Output Total 1200 305 100 Balance -8542 737 6979 692.938 - Objective General Appearance: positive: Mild distress, Lethargic Eyes Bilateral: positive: Normal inspection ENT: positive: No signs of dehydration Neck: positive: Nml inspection Respiratory: positive: Chest non-tender, Breath sounds nml Cardiovascular: positive: Irregularly irregular Peripheral Pulses: 1+ Radial (R), 1+ Radial (L), 1+ Dorsalis pedis (R), 1+ Dors lizbeth pedis (L) Abdomen: positive: Non-tender, Nml bowel sounds Skin: positive: Color nml, Warm, Dry Extremities: positive: No pedal edema Neurologic/Psychiatric: positive: Oriented x3 - Lab Results Fish Bones: 10/21/22 16:05 10/21/22 04:20 Other Labs: Lab Results x24hrs 10/21/22 10/21/22 10/21/22 Range/Units 04:20 04:20 04:20 WBC 11.8 H (4.8-10.8) x10^3/uL RBC 2.77 L (4.20-5.40) 10^6/uL Hgb 7.8 L (12.0-16.0) g/dL Hct 25.4 L (37.0-47.0) % MCV 91.7 (81.0-99.0) fL MCH 28.2 (27.0-31.0) pg MCHC 30.7 L (32.0-36.0) g/dL RDW 16.2 H (12.0-15.0) % Plt Count 225 (130-450) 10^3/uL MPV 9.5 (7.9-10.8) fL Neut # (Auto) 11.1 H (1.5-6.6) 10^3/uL Lymph # (Auto) 0.2 L (1.5-3.5) 10^3/uL Harper # (Auto) 0.4 (0.0-1.0) 10^3/uL Eos # (Auto) 0.0 (0.0-0.7) 10^3/uL Baso # (Auto) 0.0 (0.0-0.1) 10^3/uL Absolute Nucleated RBC 0.00 x10^3/uL Nucleated RBC % 0.0 /100WBC VBG pH 7.394 (7.31-7.41) Ionized Calcium 1.07 L (1.15-1.33) mmol/L Sodium 130 L (135-145) mmol/L Potassium 3.6 (3.5-5.0) mmol/L Chloride 95 L (101-111) mmol/L Carbon Dioxide 26 (21-32) mmol/L Anion Gap 9.0 (6-13) BUN 25 H (6-20) mg/dL Creatinine 1.3 H (0.4-1.0) mg/dL Estimated GFR (MDRD) 40 L (>89) Glucose 127 H (70-100) mg/dL Calcium 7.8 L (8.5-10.3) mg/dL Magnesium (1.7-2.8) mg/dL Total Bilirubin 1.2 H (0.2-1.0) mg/dL AST 24 (10-42) IU/L ALT 29 (10-60) IU/L Alkaline Phosphatase 82 (42-121) IU/L Total Protein 4.7 L (6.7-8.2) g/dL Albumin 2.4 L (3.2-5.5) g/dL Globulin 2.3 (2.1-4.2) g/dL Albumin/Globulin Ratio 1.0 (1.0-2.2) Nasal Screen MRSA (PCR) (NEGATIVE) 10/20/22 10/20/22 10/20/22 Range/Units 17:41 13:13 08:06 WBC (4.8-10.8) x10^3/uL RBC (4.20-5.40) 10^6/uL Hgb (12.0-16.0) g/dL Hct (37.0-47.0) % MCV (81.0-99.0) fL MCH (27.0-31.0) pg MCHC (32.0-36.0) g/dL RDW (12.0-15.0) % Plt Count (130-450) 10^3/uL MPV (7.9-10.8) fL Neut # (Auto) (1.5-6.6) 10^3/uL Lymph # (Auto) (1.5-3.5) 10^3/uL Harper # (Auto) (0.0-1.0) 10^3/uL Eos # (Auto) (0.0-0.7) 10^3/uL Baso # (Auto) (0.0-0.1) 10^3/uL Absolute Nucleated RBC x10^3/uL Nucleated RBC % /100WBC VBG pH (7.31-7.41) Ionized Calcium (1.15-1.33) mmol/L Sodium (135-145) mmol/L Potassium 3.5 (3.5-5.0) mmol/L Chloride (101-111) mmol/L Carbon Dioxide (21-32) mmol/L Anion Gap (6-13) BUN (6-20) mg/dL Creatinine (0.4-1.0) mg/dL Estimated GFR (MDRD) (>89) Glucose (70-100) mg/dL Calcium (8.5-10.3) mg/dL Magnesium 2.1 (1.7-2.8) mg/dL Total Bilirubin (0.2-1.0) mg/dL AST (10-42) IU/L ALT (10-60) IU/L Alkaline Phosphatase (42-121) IU/L Total Protein (6.7-8.2) g/dL Albumin (3.2-5.5) g/dL Globulin (2.1-4.2) g/dL Albumin/Globulin Ratio (1.0-2.2) Nasal Screen MRSA (PCR) NEGATIVE (NEGATIVE) Assessment/Plan - Problem List (1) Septic shock Impression: Episode of hypotension SBPs 70s, T max 39.4, central line placed, transferred to ICU, [facility] abx ordered, norepinephrine ordered. Blood cultures have come back as gram negative bacilli. Possible that the GI bleed may be contributing to this shock picture via anemia. Will continue to monitor CBC. She continues to need norepinephrine intermittently for maintain her MAP>65. UA negative. 1600 CBC WBC 9.4 this is down from last draw H&H 26.7/8.3 appears to be stable from last draw. Levophed on at 10. (2) Gastrointestinal bleed Impression: H&H 7.8/25 this morning, H&H trending down since her transfusions. Will continue to monitor. Plan for CBC at 1600 today, may require further transfusions or consult with Dr. Leal. 1600 CBC stable. Qualifiers: GI bleed type/associated pathology: unspecified gastrointestinal hemorrhage type Qualified Code(s): K92.2 - Gastrointestinal hemorrhage, unspecified (3) Afib Impression: Afib seen on telemetry this morning. HR 90s-110s. Pt's spouse informs me that she started having Afib in July of last year, and is s/p a failed ablation. [id number] Score 5. Plan: elaquis for anticoagulation. Will monitor for GI bleed. Qualifiers: Atrial fibrillation type: longstanding persistent Qualified Code(s): I48.11 - Longstanding persistent atrial fibrillation (4) CHF (congestive heart failure) Impression: ECHO from 10/20/22 shows 1. Mild concentric L ventricular hypertrophy 2. overal L ventricular systolic function is normal EF 55-60% 3. Mild MR, difficult to assess due to HR 4. moderately abnoraml R heart pressures, RVSP 50mmHg CXR 10/20/22 for line placement demonstrates diffuse interstitial radiopacities bilaterally. Lasix is 40mg IV daily ordered. May need to stop this if she continues to be hypotensive. Qualifiers: Heart failure type: diastolic Heart failure chronicity: acute Qualified Code(s): I50.31 - Acute diastolic (congestive) heart failure (5) Shoulder injury Impression: L upper extremity pain and swelling. Pt has had prior radiation to this area and has pain and edema to this extremity. Per spouse plan for total joint replacement once her current medical conditions are controlled. Qualifiers: Encounter type: initial encounter Laterality: left Qualified Code(s): S49.92XA - Unspecified injury of left shoulder and upper arm, initial encounter
[2022-10-21] MEDS: ACETAMINOPHEN 500 MG TABLET PO PRN ×2 (12:40→18:35)
[2022-10-21 16:13] LABS: BASOPHILS % (AUTO) 0.2 %; HCT - HEMATOCRIT 26.7 % (37.0-47.0); HGB - HEMOGLOBIN 8.3 g/dL (12.0-16.0); LYMPHOCYTES # (AUTO) 0.2 10^3/uL (1.5-3.5); LYMPHOCYTES % (AUTO) 2.5 %; MEAN CORPUSCULAR HEMOGLOBIN 27.8 pg (27.0-31.0); MEAN CORPUSCULAR HGB CONC 31.1 g/dL (32.0-36.0); MEAN CORPUSCULAR VOLUME 89.3 fL (81.0-99.0); MEAN PLATELET VOLUME 9.1 fL (7.9-10.8); MONOCYTES # (AUTO) 0.4 10^3/uL (0.0-1.0); MONOCYTES % (AUTO) 4.3 %; NEUTROPHILS # (AUTO) 8.6 10^3/uL (1.5-6.6); NEUTROPHILS % (AUTO) 91.8 %; PLT - PLATELET COUNT 214 10^3/uL (130-450); RED BLOOD COUNT 2.99 10^6/uL (4.20-5.40); RED CELL DISTRIBUTION WIDTH 16.1 % (12.0-15.0); WHITE BLOOD COUNT 9.4 x10^3/uL (4.8-10.8)
[2022-10-21] MEDS: CALCIUM CARBONATE CHEW 500 MG TABLET PO SCH ×2 (16:35→19:46)
--- NOTE | 2022-10-21 17:47 | PROVIDER PROGRESS NOTE ---
Subjective - Prog Note Date Prog Note Date: 10/20/22 Prog Note Time: 15:21 - Subjective Pt reports feeling: Worse Subjective: 76 yo female with PMH of atrial fibrillation on Xarelto, CHF, hypertension, CAD c hx of NV who presented to the ED on 10/16/22 with report of bright red blood per rectum. Patient reports she was taking asa and Excedrin and Xarelto at the same time when she started to have GI bleed. Occult stool test positive. She came into the ED and was transfused 3 unit PRBCs 10/16/22. Patient stop bleed and was seen by general surgery and deemed ok for outpatient endoscopy procedure. Since that time she her blood pressure has been transiently low including this morning 10/20/22. SBP 70s, central line ordered, and transferred to ICU with levophed. Current Medications - Current Medications Current Medications: Acetaminophen (Acetaminophen 500 Mg Tablet) 1,000 mg PO Q6H PRN PRN Reason: Mild Pain Or Fever>38c(100.4f) Last Admin: 10/21/22 12:40 Dose: 1,000 mg Hydrocodone Bitart/Acetaminophen (Hydrocod/Acetam 5/325 Mg Tablet) 1 tab PO Q6HR PRN PRN Reason: PAIN Last Admin: 10/21/22 05:40 Dose: 1 tab Albuterol/Ipratropium (Ipratropium/Albuterol 3 Ml Neb) 3 ml INH Q4HR PRN PRN Reason: Shortness of Air/Wheezing Apixaban (Apixaban 5 Mg Tablet) 5 mg PO BID [facility] Last Admin: 10/21/22 08:32 Dose: 5 mg Calcium Carbonate/Glycine (Calcium Carbonate Chew 500 Mg Tablet) 1,250 mg PO Q4H [facility]; Protocol Stop: 10/21/22 20:01 Last Admin: 10/21/22 16:35 Dose: 1,250 mg Carvedilol (Carvedilol 12.5 Mg Tablet) 25 mg PO BID [facility] Last Admin: 10/21/22 08:32 Dose: 25 mg Furosemide (Furosemide 40 Mg/4 Ml Vial) 40 mg IVP DAILY [facility] Last Admin: 10/21/22 08:29 Dose: 40 mg Hydralazine HCl (Hydralazine Inj 20 Mg/Ml Vial) 10 mg IVP Q6HR PRN PRN Reason: Hypertensive Emergency Last Admin: 10/21/22 08:30 Dose: 10 mg Hydroxychloroquine Sulfate (Hydroxychloroquine 200 Mg Tablet) 200 mg PO BID [facility] Last Admin: 10/21/22 09:30 Dose: 200 mg Cefepime HCl 2 gm/ Sodium (Chloride) 100 mls @ 200 mls/hr IV Q12H [facility] Last Infusion: 10/21/22 09:05 Dose: Infused Norepinephrine Bitartrate 8 mg (/ Dextrose) 250 mls @ 15 mls/hr IV .[id number] [facility]; Protocol Last Titration: 10/21/22 17:22 Dose: 8 mcg/min, 15 mls/hr Promethazine HCl 25 mg/ Sodium (Chloride) 51 mls @ 100 mls/hr IV Q6H PRN PRN Reason: Nausea / Vomiting Last Infusion: 10/21/22 00:18 Dose: Infused Metoprolol Tartrate (Metoprolol 5 Mg/5 Ml Vial) 2.5 mg IVP Q6H PRN PRN Reason: tachycardia HR>120 Last Admin: 10/21/22 08:26 Dose: 2.5 mg Nystatin (Nystatin Powder 15 Gm) 1 applic TOP BID [facility] Last Admin: 10/21/22 08:31 Dose: 1 applic Ondansetron HCl (Ondansetron 4 Mg/2 Ml Vial) 4 mg IVP Q6HR PRN PRN Reason: Nausea / Vomiting Last Admin: 10/20/22 10:32 Dose: 4 mg Pantoprazole Sodium (Pantoprazole 40 Mg Tablet) 40 mg PO DAILY [facility] Last Admin: 10/21/22 08:32 Dose: 40 mg Promethazine HCl (Promethazine 25 Mg Tablet) 25 mg PO Q6HR PRN PRN Reason: Nausea / Vomiting Sertraline HCl (Sertraline 50 Mg Tablet) 100 mg PO DAILY [facility] Last Admin: 10/21/22 08:31 Dose: 100 mg Sodium Chloride (Sodium Chloride Flush 0.9% 10 Ml Syringe) 10 ml IVP PRN PRN PRN Reason: NEEDED PER PROVIDER ORDERS Last Admin: 10/21/22 04:19 Dose: 10 ml Sodium Chloride (Sodium Chloride Flush 0.9% 10 Ml Syringe) 10 ml IVP 0100,0900,1700 [facility] Last Admin: 10/21/22 16:15 Dose: 10 ml Objective - Vital Signs/Intake & Output Vital Signs: Vital Signs x48h Temp Pulse Pulse Resp BP BP BP 10/21/22 17:00 94 20 123/90 H 10/21/22 15:00 89 22 94/57 L 10/21/22 14:00 36.9 C 94 23 95/63 10/21/22 13:00 98 28 H 114/70 10/21/22 12:00 98 28 H 114/70 10/21/22 11:55 100 114/70 104/58 L 10/21/22 11:00 97 27 H 102/58 L 10/21/22 10:00 100 23 93/70 Pulse Ox 10/21/22 17:00 99 10/21/22 15:00 96 10/21/22 14:00 95 10/21/22 13:00 96 10/21/22 12:00 96 10/21/22 11:55 10/21/22 11:00 97 10/21/22 10:00 96 Intake & Output: Intake & Output 10/18/22 10/19/22 10/20/22 10/21/22 23:59 23:59 23:59 23:59 Intake Total 400 2375 1366.750 Output Total 1200 305 500 Balance -6575 093 1426 866.750 - Objective General Appearance: positive: Moderate distress, Lethargic Eyes Bilateral: positive: Normal inspection ENT: positive: ENT inspection nml, No signs of dehydration Neck: positive: Nml inspection Respiratory: positive: Breath sounds nml Cardiovascular: positive: Irregularly irregular Peripheral Pulses: 2+ Radial (R), 2+ Radial (L), 2+ Dorsalis pedis (R), 2+ Dorsalis pedis (L) Abdomen: positive: Non-tender, Nml bowel sounds Back: positive: Nml inspection Skin: positive: Color nml, Warm, Dry Extremities: positive: No pedal edema, Other (LUE edema and pain) Neurologic/Psychiatric: positive: Oriented x3 - Lab Results Fish Bones: 10/21/22 16:05 10/21/22 04:20 Other Labs: Lab Results x24hrs 10/21/22 10/21/22 10/21/22 Range/Units 16:05 04:20 04:20 WBC 9.4 (4.8-10.8) x10^3/uL RBC 2.99 L (4.20-5.40) 10^6/uL Hgb 8.3 L (12.0-16.0) g/dL Hct 26.7 L (37.0-47.0) % MCV 89.3 (81.0-99.0) fL MCH 27.8 (27.0-31.0) pg MCHC 31.1 L (32.0-36.0) g/dL RDW 16.1 H (12.0-15.0) % Plt Count 214 (130-450) 10^3/uL MPV 9.1 (7.9-10.8) fL Neut # (Auto) 8.6 H (1.5-6.6) 10^3/uL Lymph # (Auto) 0.2 L (1.5-3.5) 10^3/uL Lassen # (Auto) 0.4 (0.0-1.0) 10^3/uL Eos # (Auto) 0.0 (0.0-0.7) 10^3/uL Baso # (Auto) 0.0 (0.0-0.1) 10^3/uL Absolute Nucleated RBC 0.00 x10^3/uL Nucleated RBC % 0.0 /100WBC VBG pH 7.394 (7.31-7.41) Ionized Calcium 1.07 L (1.15-1.33) mmol/L Sodium 130 L (135-145) mmol/L Potassium 3.6 (3.5-5.0) mmol/L Chloride 95 L (101-111) mmol/L Carbon Dioxide 26 (21-32) mmol/L Anion Gap 9.0 (6-13) BUN 25 H (6-20) mg/dL Creatinine 1.3 H (0.4-1.0) mg/dL Estimated GFR (MDRD) 40 L (>89) Glucose 127 H (70-100) mg/dL Calcium 7.8 L (8.5-10.3) mg/dL Total Bilirubin 1.2 H (0.2-1.0) mg/dL AST 24 (10-42) IU/L ALT 29 (10-60) IU/L Alkaline Phosphatase 82 (42-121) IU/L Total Protein 4.7 L (6.7-8.2) g/dL Albumin 2.4 L (3.2-5.5) g/dL Globulin 2.3 (2.1-4.2) g/dL Albumin/Globulin Ratio 1.0 (1.0-2.2) 10/21/22 10/20/22 Range/Units 04:20 17:41 WBC 11.8 H (4.8-10.8) x10^3/uL RBC 2.77 L (4.20-5.40) 10^6/uL Hgb 7.8 L (12.0-16.0) g/dL Hct 25.4 L (37.0-47.0) % MCV 91.7 (81.0-99.0) fL MCH 28.2 (27.0-31.0) pg MCHC 30.7 L (32.0-36.0) g/dL RDW 16.2 H (12.0-15.0) % Plt Count 225 (130-450) 10^3/uL MPV 9.5 (7.9-10.8) fL Neut # (Auto) 11.1 H (1.5-6.6) 10^3/uL Lymph # (Auto) 0.2 L (1.5-3.5) 10^3/uL Lassen # (Auto) 0.4 (0.0-1.0) 10^3/uL Eos # (Auto) 0.0 (0.0-0.7) 10^3/uL Baso # (Auto) 0.0 (0.0-0.1) 10^3/uL Absolute Nucleated RBC 0.00 x10^3/uL Nucleated RBC % 0.0 /100WBC VBG pH (7.31-7.41) Ionized Calcium (1.15-1.33) mmol/L Sodium (135-145) mmol/L Potassium 3.5 (3.5-5.0) mmol/L Chloride (101-111) mmol/L Carbon Dioxide (21-32) mmol/L Anion Gap (6-13) BUN (6-20) mg/dL Creatinine (0.4-1.0) mg/dL Estimated GFR (MDRD) (>89) Glucose (70-100) mg/dL Calcium (8.5-10.3) mg/dL Total Bilirubin (0.2-1.0) mg/dL AST (10-42) IU/L ALT (10-60) IU/L Alkaline Phosphatase (42-121) IU/L Total Protein (6.7-8.2) g/dL Albumin (3.2-5.5) g/dL Globulin (2.1-4.2) g/dL Albumin/Globulin Ratio (1.0-2.2) - Diagnostic Imaging Diagnostic Imaging Results: positive: Final report reviewed (10/20/22 ECHO, CXR 10/20/22) Sepsis Event Note (H) - Evaluation Current Stage of Sepsis: Septic shock - Sepsis Criteria Sepsis Criteria: Recorded Temperature greater than 38.3C or Less than 36C, Recorded Heart Rate greater than 90 bpm, SBP less than 90 mmHg Assessment/Plan - Problem List (1) Septic shock Impression: Episode of hypotension SBPs 70s, T max 39.4, central line placed, transferred to ICU, [facility] abx ordered, norepinephrine ordered. Blood cultures have come back as gram negative bacilli. Possible that the GI bleed may be contributing to this shock picture via anemia. Will continue to monitor CBC. She continues to need norepinephrine intermittently for maintain her MAP>65. UA negative. 1600 CBC WBC 9.4 this is down from last draw H&H 26.7/8.3 appears to be stable from last draw. Levophed on at 10. (2) Gastrointestinal bleed Impression: H&H 7.8/25 this morning, H&H trending down since her transfusions. Will cont inue to monitor. Plan for CBC at 1600 today, may require further transfusions or consult with Dr. Leal. 1600 CBC stable. Qualifiers: GI bleed type/associated pathology: unspecified gastrointestinal hemorrhage type Qualified Code(s): K92.2 - Gastrointestinal hemorrhage, unspecified (3) CHF (congestive heart failure) Impression: ECHO from 10/20/22 shows 1. Mild concentric L ventricular hypertrophy 2. overal L ventricular systolic function is normal EF 55-60% 3. Mild MR, difficult to assess due to HR 4. moderately abnoraml R heart pressures, RVSP 50mmHg CXR 10/20/22 for line placement demonstrates diffuse interstitial radiopacities bilaterally. Lasix is 40mg IV daily ordered. May need to stop this if she continues to be hypotensive. Qualifiers: Heart failure type: diastolic Heart failure chronicity: acute Qualified Code(s): I50.31 - Acute diastolic (congestive) heart failure (4) Afib Impression: Afib seen on telemetry this morning. HR 90s-110s. Pt's spouse informs me that she started having Afib in July of last year, and is s/p a failed ablation. [id number] Score 5. Plan: elaquis for anticoagulation. Will monitor for GI bleed. Qualifiers: Atrial fibrillation type: longstanding persistent Qualified Code(s): I48.11 - Longstanding persistent atrial fibrillation (5) Shoulder injury Impression: Pt has had prior radiation to this area and has pain and edema to this extremity. Per spouse plan for total joint replacement once her current medical conditions are controlled. Qualifiers: Encounter type: initial encounter Laterality: left Qualified Code(s): S49.92XA - Unspecified injury of left shoulder and upper arm, initial encounter
[2022-10-21] MEDS: guaiFENesin 600 MG TABLET PO SCH (20:20)
[2022-10-21] MEDS ORDERED: POTASSIUM CHLOR 20 MEQ/100 ML 20 MEQ/100 ML BAG IV ONE (23:53)
[2022-10-22] MEDS: NORepinephrine 8 MG in DEXTROSE 5% 250ML IV SCH (01:20)
[2022-10-22] MEDS: HYDROcod/ACETAM 5/325 MG TABLET PO PRN (05:00)
[2022-10-22] MEDS: SODIUM CHLORIDE FLUSH 0.9% 10 ML SYRINGE IVP PRN (05:00)
[2022-10-22 05:12] LABS: BASOPHILS % (AUTO) 0.3 %; EOSINOPHILS # (AUTO) 0.1 10^3/uL (0.0-0.7); EOSINOPHILS % (AUTO) 1.1 %; HCT - HEMATOCRIT 25.4 % (37.0-47.0); HGB - HEMOGLOBIN 7.9 g/dL (12.0-16.0); LYMPHOCYTES # (AUTO) 0.3 10^3/uL (1.5-3.5); LYMPHOCYTES % (AUTO) 4.3 %; MEAN CORPUSCULAR HEMOGLOBIN 27.8 pg (27.0-31.0); MEAN CORPUSCULAR HGB CONC 31.1 g/dL (32.0-36.0); MEAN CORPUSCULAR VOLUME 89.4 fL (81.0-99.0); MEAN PLATELET VOLUME 10.1 fL (7.9-10.8); MONOCYTES # (AUTO) 0.4 10^3/uL (0.0-1.0); MONOCYTES % (AUTO) 4.7 %; NEUTROPHILS # (AUTO) 6.7 10^3/uL (1.5-6.6); NEUTROPHILS % (AUTO) 88.7 %; PLT - PLATELET COUNT 193 10^3/uL (130-450); RED BLOOD COUNT 2.84 10^6/uL (4.20-5.40); RED CELL DISTRIBUTION WIDTH 15.9 % (12.0-15.0); WHITE BLOOD COUNT 7.5 x10^3/uL (4.8-10.8)
[2022-10-22 05:17] LABS: CALCIUM, IONIZED 1.1 mmol/L (1.15-1.33); VBG PH 7.413 (7.31-7.41)
[2022-10-22 05:26] LABS: ALBUMIN 2.3 g/dL (3.2-5.5); ALBUMIN/GLOBULIN RATIO 0.9 (1.0-2.2); BILIRUBIN,TOTAL 1.2 mg/dL (0.2-1.0); CALCIUM 7.9 mg/dL (8.5-10.3); CREATININE 1.3 mg/dL (0.4-1.0); POTASSIUM 3.7 mmol/L (3.5-5.0); TOTAL PROTEIN 4.8 g/dL (6.7-8.2)
[2022-10-22] MEDS ORDERED: POTASSIUM CHLOR 20 MEQ/100 ML 20 MEQ/100 ML BAG IV ONE (05:31)
--- NOTE | 2022-10-22 07:33 | PROVIDER PROGRESS NOTE ---
Subjective - Prog Note Date Prog Note Date: 10/22/22 Prog Note Time: 07:31 - Subjective Subjective: Gaye was admitted on 10/16/22 from the ED following a week of GI bleed. On xarelto for Afib, was given 3 units PRBCs. Yesterday was hypotensive, had tem perature of 39.4C, admitted to ICU and central line placed. Abx ordered. No overnight events, she remains on norepinephrine to maintain her MAP>65. Abx susceptibilities came back, she is currently on cefepime, and her E. coli is susceptible to everything, will slava her abx regimen today. Current Medications - Current Medications Current Medications: Acetaminophen (Acetaminophen 500 Mg Tablet) 1,000 mg PO Q6H PRN PRN Reason: Mild Pain Or Fever>38c(100.4f) Last Admin: 10/21/22 18:35 Dose: 1,000 mg Hydrocodone Bitart/Acetaminophen (Hydrocod/Acetam 5/325 Mg Tablet) 1 tab PO Q6HR PRN PRN Reason: PAIN Last Admin: 10/22/22 05:00 Dose: 1 tab Albuterol/Ipratropium (Ipratropium/Albuterol 3 Ml Neb) 3 ml INH Q4HR PRN PRN Reason: Shortness of Air/Wheezing Apixaban (Apixaban 5 Mg Tablet) 5 mg PO BID [facility] Last Admin: 10/21/22 20:20 Dose: 5 mg Carvedilol (Carvedilol 12.5 Mg Tablet) 25 mg PO BID [facility] Last Admin: 10/21/22 20:20 Dose: 25 mg Guaifenesin (Guaifenesin 600 Mg Tablet) 600 mg PO BID [facility] Last Admin: 10/21/22 20:20 Dose: 600 mg Hydralazine HCl (Hydralazine Inj 20 Mg/Ml Vial) 10 mg IVP Q6HR PRN PRN Reason: Hypertensive Emergency Last Admin: 10/21/22 08:30 Dose: 10 mg Hydroxychloroquine Sulfate (Hydroxychloroquine 200 Mg Tablet) 200 mg PO BID [facility] Last Admin: 10/21/22 20:20 Dose: 200 mg Cefepime HCl 2 gm/ Sodium (Chloride) 100 mls @ 200 mls/hr IV Q12H [facility] Last Infusion: 10/21/22 20:30 Dose: Infused Norepinephrine Bitartrate 8 mg (/ Dextrose) 250 mls @ 15 mls/hr IV .[id number] [facility]; Protocol Last Admin: 10/22/22 01:20 Dose: 8 mcg/min, 15 mls/hr Promethazine HCl 25 mg/ Sodium (Chloride) 51 mls @ 100 mls/hr IV Q6H PRN PRN Reason: Nausea / Vomiting Last Infusion: 10/21/22 00:18 Dose: Infused Metoprolol Tartrate (Metoprolol 5 Mg/5 Ml Vial) 2.5 mg IVP Q6H PRN PRN Reason: tachycardia HR>120 Last Admin: 10/21/22 08:26 Dose: 2.5 mg Nystatin (Nystatin Powder 15 Gm) 1 applic TOP BID [facility] Last Admin: 10/21/22 20:20 Dose: 1 applic Ondansetron HCl (Ondansetron 4 Mg/2 Ml Vial) 4 mg IVP Q6HR PRN PRN Reason: Nausea / Vomiting Last Admin: 10/20/22 10:32 Dose: 4 mg Pantoprazole Sodium (Pantoprazole 40 Mg Tablet) 40 mg PO DAILY [facility] Last Admin: 10/21/22 08:32 Dose: 40 mg Promethazine HCl (Promethazine 25 Mg Tablet) 25 mg PO Q6HR PRN PRN Reason: Nausea / Vomiting Last Admin: 10/21/22 20:19 Dose: 25 mg Sertraline HCl (Sertraline 50 Mg Tablet) 100 mg PO DAILY [facility] Last Admin: 10/21/22 08:31 Dose: 100 mg Sodium Chloride (Sodium Chloride Flush 0.9% 10 Ml Syringe) 10 ml IVP PRN PRN PRN Reason: NEEDED PER PROVIDER ORDERS Last Admin: 10/22/22 05:00 Dose: 10 ml Sodium Chloride (Sodium Chloride Flush 0.9% 10 Ml Syringe) 10 ml IVP 0100,0900,1700 [facility] Last Admin: 10/21/22 23:35 Dose: 10 ml Objective - Vital Signs/Intake & Output Vital Signs: Vital Signs x48h Temp Pulse Resp BP Pulse Ox 10/22/22 07:00 107 H 25 H 112/87 H 98 10/22/22 06:00 100 21 110/81 H 97 10/22/22 05:00 96 23 120/85 H 98 10/22/22 04:00 93 22 114/80 97 10/22/22 03:00 92 26 H 113/73 98 10/22/22 02:00 101 H 19 116/80 98 10/22/22 01:00 85 18 92/75 98 10/22/22 00:00 36.3 C L 83 17 99/69 98 Intake & Output: Intake & Output 10/19/22 10/20/22 10/21/22 10/22/22 23:59 23:59 23:59 23:59 Intake Total 400 2375 1696.750 219.5 Output Total 305 500 75 Balance 400 2070 1196.750 144.5 - Objective ENT: positive: ENT inspection nml Neck: positive: Nml inspection Respiratory: positive: Chest non-tender, Breath sounds nml Cardiovascular: positive: Regular rate & rhythm Peripheral Pulses: 1+ Dorsalis pedis (R), 1+ Dorsalis pedis (L), 2+ Radial (R), 2+ Radial (L), 2+ Posterior tibialis (R), 2+ Posterior tibialis (L) Abdomen: positive: Non-tender, Nml bowel sounds Skin: positive: Color nml, Warm, Dry, Other (paper thin skin loss of sub q tissue) Extremities: positive: Other (tend/ swelling LUE) Neurologic/Psychiatric: positive: Oriented x3 - Lab Results Fish Bones: 10/22/22 04:41 10/22/22 04:41 Other Labs: Lab Results x24hrs 10/22/22 10/22/22 10/22/22 Range/Units 04:41 04:41 04:41 WBC 7.5 (4.8-10.8) x10^3/uL RBC 2.84 L (4.20-5.40) 10^6/uL Hgb 7.9 L (12.0-16.0) g/dL Hct 25.4 L (37.0-47.0) % MCV 89.4 (81.0-99.0) fL MCH 27.8 (27.0-31.0) pg MCHC 31.1 L (32.0-36.0) g/dL RDW 15.9 H (12.0-15.0) % Plt Count 193 (130-450) 10^3/uL MPV 10.1 (7.9-10.8) fL Neut # (Auto) 6.7 H (1.5-6.6) 10^3/uL Lymph # (Auto) 0.3 L (1.5-3.5) 10^3/uL [place] # (Auto) 0.4 (0.0-1.0) 10^3/uL Eos # (Auto) 0.1 (0.0-0.7) 10^3/uL Baso # (Auto) 0.0 (0.0-0.1) 10^3/uL Absolute Nucleated RBC 0.00 x10^3/uL Nucleated RBC % 0.0 /100WBC VBG pH 7.413 H (7.31-7.41) Ionized Calcium 1.10 L (1.15-1.33) mmol/L Sodium 129 L (135-145) mmol/L Potassium 3.7 (3.5-5.0) mmol/L Chloride 96 L (101-111) mmol/L Carbon Dioxide 26 (21-32) mmol/L Anion Gap 7.0 (6-13) BUN 27 H (6-20) mg/dL Creatinine 1.3 H (0.4-1.0) mg/dL Estimated GFR (MDRD) 40 L (>89) Glucose 107 H (70-100) mg/dL Calcium 7.9 L (8.5-10.3) mg/dL Total Bilirubin 1.2 H (0.2-1.0) mg/dL AST 28 (10-42) IU/L ALT 29 (10-60) IU/L Alkaline Phosphatase 82 (42-121) IU/L Total Protein 4.8 L (6.7-8.2) g/dL Albumin 2.3 L (3.2-5.5) g/dL Globulin 2.5 (2.1-4.2) g/dL Albumin/Globulin Ratio 0.9 L (1.0-2.2) 10/21/22 Range/Units 16:05 WBC 9.4 (4.8-10.8) x10^3/uL RBC 2.99 L (4.20-5.40) 10^6/uL Hgb 8.3 L (12.0-16.0) g/dL Hct 26.7 L (37.0-47.0) % MCV 89.3 (81.0-99.0) fL MCH 27.8 (27.0-31.0) pg MCHC 31.1 L (32.0-36.0) g/dL RDW 16.1 H (12.0-15.0) % Plt Count 214 (130-450) 10^3/uL MPV 9.1 (7.9-10.8) fL Neut # (Auto) 8.6 H (1.5-6.6) 10^3/uL Lymph # (Auto) 0.2 L (1.5-3.5) 10^3/uL [place] # (Auto) 0.4 (0.0-1.0) 10^3/uL Eos # (Auto) 0.0 (0.0-0.7) 10^3/uL Baso # (Auto) 0.0 (0.0-0.1) 10^3/uL Absolute Nucleated RBC 0.00 x10^3/uL Nucleated RBC % 0.0 /100WBC VBG pH (7.31-7.41) Ionized Calcium (1.15-1.33) mmol/L Sodium (135-145) mmol/L Potassium (3.5-5.0) mmol/L Chloride (101-111) mmol/L Carbon Dioxide (21-32) mmol/L Anion Gap (6-13) BUN (6-20) mg/dL Creatinine (0.4-1.0) mg/dL Estimated GFR (MDRD) (>89) Glucose (70-100) mg/dL Calcium (8.5-10.3) mg/dL Total Bilirubin (0.2-1.0) mg/dL AST (10-42) IU/L ALT (10-60) IU/L Alkaline Phosphatase (42-121) IU/L Total Protein (6.7-8.2) g/dL Albumin (3.2-5.5) g/dL Globulin (2.1-4.2) g/dL Albumin/Globulin Ratio (1.0-2.2) - Diagnostic Imaging Diagnostic Imaging Results: positive: Final report reviewed Sepsis Event Note (H) - Evaluation Current Stage of Sepsis: Sepsis (Continues to require norepinephrine for to keep MAP>65) - Sepsis Criteria Sepsis Criteria: Recorded Temperature greater than 38.3C or Less than 36C, Recorded Heart Rate greater than 90 bpm, SBP less than 90 mmHg Assessment/Plan - Problem List (1) Septic shock Impression: No temperatures today, continues to require norepinephrine for BP. Abx have been given, UA was negative, lasix was discontinued so she is not loosing volume that way. May need to scan her belly to look for other source of infection. WBC 7.5 this morning which is trending down. Possible other process is is involved, no reason for her to continue to need norepinephrine so may CT scan her belly today. Norepinephrine running at 8mcg/min. (2) CHF (congestive heart failure) Impression: Stable for now, will need to check and see if she is retaining fluid, legs, abd, crackles in lungs? Qualifiers: Heart failure type: diastolic Heart failure chronicity: acute Qualified Code(s): I50.31 - Acute diastolic (congestive) heart failure (3) Gastrointestinal bleed Impression: H&H 7.9/25.4 this am. Bleeding versus dilution. Lasix was discontinued yesterday, so she is not loosing volume that way. Most likely dilution changes yesterday's H&H was H&H 7.8/25. She is receiving protonix, and remains on eliquis. Qualifiers: GI bleed type/associated pathology: unspecified gastrointestinal hemorrhage type Qualified Code(s): K92.2 - Gastrointestinal hemorrhage, unspecified (4) Afib Impression: Afib seen on telemetry this morning. HR 107. Pt's spouse informs me that she started having Afib in July of last year, and is s/p a failed ablation. [id number] Score 5. Plan: elaquis for anticoagulation. Will monitor for GI bleed, morning's H&H stable slight drop may be dilution. Qualifiers: Atrial fibrillation type: longstanding persistent Qualified Code(s): I48.11 - Longstanding persistent atrial fibrillation (5) Shoulder injury Impression: L upper extremity pain and swelling. Pt has had prior radiation to this area and has pain and edema to this extremity. Per spouse plan for total joint repla cement once her current medical conditions are controlled. Qualifiers: Encounter type: initial encounter Laterality: left Qualified Code(s): S49.92XA - Unspecified injury of left shoulder and upper arm, initial encounter (6) Hyponatremia Impression: Na 129 on this morning's labs. Yesterday Na 130, 10/20/22 Na 125. As long as there is no clinical changes will continue to monitor but will not actively treat.
[2022-10-22] MEDS: ONDANSETRON 4 MG/2 ML VIAL IVP PRN (07:52)
[2022-10-22] MEDS ORDERED: SODIUM CHLORIDE 0.9% 500 ML IV ONE (07:57)
[2022-10-22] MEDS: CEFEPIME 2 GM in SODIUM CHLORIDE 0.9% MINIBAG 100 ML IV SCH ×2 (09:23→21:05)
[2022-10-22] MEDS: PANTOPRAZOLE 40 MG TABLET PO SCH (09:30)
[2022-10-22] MEDS: SERTRALINE 50 MG TABLET PO SCH (09:30)
[2022-10-22] MEDS: SODIUM CHLORIDE FLUSH 0.9% 10 ML SYRINGE IVP SCH ×2 (09:30→17:21)
[2022-10-22] MEDS: NYSTATIN POWDER 15 GM TOP SCH ×2 (09:30→21:05)
[2022-10-22] MEDS: carvediloL 12.5 MG TABLET PO SCH ×2 (09:30→21:02)
[2022-10-22] MEDS: APIXABAN 5 MG TABLET PO SCH ×2 (09:30→21:01)
[2022-10-22] MEDS: HYDROXYCHLOROQUINE 200 MG TABLET PO SCH ×2 (09:30→21:03)
[2022-10-22] MEDS: guaiFENesin 600 MG TABLET PO SCH ×2 (09:30→20:59)
[2022-10-22] MEDS: SODIUM CHLORIDE 0.9% 1,000 ML IV SCH ×2 (10:00→23:40)
[2022-10-22] MEDS: ACETAMINOPHEN 500 MG TABLET PO PRN ×2 (16:04→23:31)
[2022-10-22] MEDS: PROMETHAZINE INJ 25 MG in SODIUM CHLORIDE 0.9% 50 ML IV PRN (16:26)
--- NOTE | 2022-10-22 18:42 | CT Report ---
PROCEDURE: ABDOMEN/PELVIS WO INDICATIONS: e coli bacteremia, hypotension, no source TECHNIQUE: Noncontrast 5 mm thick sections acquired from the diaphragms to the symphysis. 5 mm coronal and sagi ttal reformats were then performed. For radiation dose reduction, the following was used: automated exposure control, adjustment of mA and/or kV according to patient size. COMPARISON: None. FINDINGS: The lack of intravenous contrast significantly limits evaluation of the abdomen and pelvis, particula rly for the provided indication of suspected infection. There is no intra-abdominal free air or free fluid. No abnormally dilated or obviously thickened loop of bowel. Mildly distended urinary bladder w ithout obvious wall thickening or adjacent fat stranding. Nonaneurysmal abdominal aorta without retro peritoneal lymphadenopathy or fat stranding. Grossly normal appearance of the unenhanced liver, splee n, pancreas, and adrenal glands. No abnormal perinephric fat stranding or hydroureteronephrosis demon strated. Mild gallbladder distention without adjacent fat stranding or free fluid. Small bilateral pl eural effusions with overlying atelectasis and superimposed patchy mixed consolidative and groundglas s airspace opacity in the partially visualized lung bases. IMPRESSION: Mildly distended urinary bladder. Mildly distended gallbladder without definite unenhanced CT findings of cholecystitis. Bilateral lung base patchy mixed consolidative and groundglass airspace opacities are consistent with an infectious process. Small bilateral pleural effusions are presumably related, although these coul d be due to congestive heart failure as well. Reviewed by: Fernandez Aldridge MD on 10/22/2022 6:41 PM PST Approved by: Fernandez Aldridge MD on 10/22/2022 6:41 PM PST Station ID: [id number]
[2022-10-22] MEDS: CALCIUM CARBONATE CHEW 500 MG TABLET PO SCH ×2 (18:47→23:38)
[2022-10-23] MEDS: SODIUM CHLORIDE FLUSH 0.9% 10 ML SYRINGE IVP PRN ×5 (00:45→17:53)
[2022-10-23] MEDS: LORazepam 1 MG TABLET PO PRN ×2 (00:45→20:28)
[2022-10-23] MEDS: SODIUM CHLORIDE FLUSH 0.9% 10 ML SYRINGE IVP SCH ×3 (00:46→17:37)
[2022-10-23 05:31] LABS: CALCIUM, IONIZED 1.12 mmol/L (1.15-1.33); VBG PH 7.398 (7.31-7.41)
[2022-10-23 05:34] LABS: BASOPHILS % (AUTO) 0.3 %; EOSINOPHILS # (AUTO) 0.1 10^3/uL (0.0-0.7); EOSINOPHILS % (AUTO) 0.9 %; HCT - HEMATOCRIT 23.9 % (37.0-47.0); HGB - HEMOGLOBIN 7.2 g/dL (12.0-16.0); LYMPHOCYTES # (AUTO) 0.4 10^3/uL (1.5-3.5); LYMPHOCYTES % (AUTO) 6.6 %; MEAN CORPUSCULAR HEMOGLOBIN 27.4 pg (27.0-31.0); MEAN CORPUSCULAR HGB CONC 30.1 g/dL (32.0-36.0); MEAN CORPUSCULAR VOLUME 90.9 fL (81.0-99.0); MONOCYTES # (AUTO) 0.5 10^3/uL (0.0-1.0); NEUTROPHILS # (AUTO) 5.5 10^3/uL (1.5-6.6); NEUTROPHILS % (AUTO) 84.6 %; PLT - PLATELET COUNT 152 10^3/uL (130-450); RED BLOOD COUNT 2.63 10^6/uL (4.20-5.40); RED CELL DISTRIBUTION WIDTH 16.2 % (12.0-15.0); WHITE BLOOD COUNT 6.5 x10^3/uL (4.8-10.8)
[2022-10-23 05:42] LABS: ALBUMIN 2.2 g/dL (3.2-5.5); ALBUMIN/GLOBULIN RATIO 0.9 (1.0-2.2); BILIRUBIN,TOTAL 1.2 mg/dL (0.2-1.0); CALCIUM 7.9 mg/dL (8.5-10.3); MAGNESIUM 1.8 mg/dL (1.7-2.8); POTASSIUM 3.6 mmol/L (3.5-5.0); TOTAL PROTEIN 4.6 g/dL (6.7-8.2)
[2022-10-23] MEDS: NORepinephrine 8 MG in DEXTROSE 5% 250ML IV SCH (05:59)
[2022-10-23] MEDS ORDERED: POTASSIUM CHLOR 20 MEQ/100 ML 20 MEQ/100 ML BAG IV ONE (06:00)
[2022-10-23] MEDS ORDERED: MAGNESIUM SULFATE 2 GRAM 2 GM/50 ML BAG IV ONE (06:00)
[2022-10-23] MEDS ORDERED: FUROSEMIDE 20 MG TABLET PO STA (06:22)
--- NOTE | 2022-10-23 06:24 | PROVIDER PROGRESS NOTE ---
Progress Note Discontinued IV hydration. Home dose of Lasix is restarted as patient has crackleson physical examination as per the nursing staff.
[2022-10-23] MEDS: CEFEPIME 2 GM in SODIUM CHLORIDE 0.9% MINIBAG 100 ML IV SCH (08:20)
--- NOTE | 2022-10-23 08:21 | PROVIDER PROGRESS NOTE ---
Subjective - Prog Note Date Prog Note Date: 10/23/22 Prog Note Time: 12:04 - Subjective Subjective: Gaye was admitted on 10/16/22 from the ED following a week of GI bleed. On xarelto for Afib, was given 3 units PRBCs. No overnight events, norepinephrine is off since early this am. Gaye is sitting up in a chair this morning, when I enter the room she remembers me but not my name. Appears much brighter in affect and reports that she is feeling be tter. She says she had a good breakfast. She continues to be distressed about her overall condition saying "my sleep was funny." She endorses a good night sleep overall but states she is having trouble taking a deep breath. She denies pain but says she just has overall, "discomfort." at bedside reports that Gaye received a hydrocodone medication and that she has known reactions to that. Hydromorphone is okay but no hydrocodones. I have reviewed the chart and she has no hydrocodone on her active med list. She had a 1 time prn order for hydrocodone and that she received early this am. No more hydrocodone or oxycodone on her active med list at this time, these medications are listed as allergies on her chart. Current Medications - Current Medications Current Medications: Acetaminophen (Acetaminophen 500 Mg Tablet) 1,000 mg PO Q6H PRN PRN Reason: Mild Pain Or Fever>38c(100.4f) Last Admin: 10/22/22 23:31 Dose: 1,000 mg Albuterol/Ipratropium (Ipratropium/Albuterol 3 Ml Neb) 3 ml INH Q4HR PRN PRN Reason: Shortness of Air/Wheezing Apixaban (Apixaban 5 Mg Tablet) 5 mg PO BID [facility] Last Admin: 10/23/22 08:29 Dose: 5 mg Carvedilol (Carvedilol 12.5 Mg Tablet) 25 mg PO BID [facility] Last Admin: 10/23/22 08:29 Dose: 25 mg Guaifenesin (Guaifenesin 600 Mg Tablet) 600 mg PO BID [facility] Last Admin: 10/23/22 08:29 Dose: 600 mg Hydralazine HCl (Hydralazine Inj 20 Mg/Ml Vial) 10 mg IVP Q6HR PRN PRN Reason: Hypertensive Emergency Last Admin: 10/21/22 08:30 Dose: 10 mg Hydroxychloroquine Sulfate (Hydroxychloroquine 200 Mg Tablet) 200 mg PO BID [facility] Last Admin: 10/23/22 08:29 Dose: 200 mg Cefepime HCl 2 gm/ Sodium (Chloride) 100 mls @ 200 mls/hr IV Q12H [facility] Last Admin: 10/23/22 08:20 Dose: 200 mls/hr Norepinephrine Bitartrate 8 mg (/ Dextrose) 250 mls @ 15 mls/hr IV .[id number] [facility]; Protocol Last Admin: 10/23/22 05:59 Dose: Not Given Promethazine HCl 25 mg/ Sodium (Chloride) 51 mls @ 100 mls/hr IV Q6H PRN PRN Reason: Nausea / Vomiting Last Infusion: 10/22/22 17:22 Dose: Infused Lorazepam (Lorazepam 1 Mg Tablet) 2 mg PO HS PRN PRN Reason: Anxiety Last Admin: 10/23/22 00:45 Dose: 2 mg Metoprolol Tartrate (Metoprolol 5 Mg/5 Ml Vial) 2.5 mg IVP Q6H PRN PRN Reason: tachycardia HR>120 Last Admin: 10/21/22 08:26 Dose: 2.5 mg Nystatin (Nystatin Powder 15 Gm) 1 applic TOP BID [facility] Last Admin: 10/22/22 21:05 Dose: 1 applic Ondansetron HCl (Ondansetron 4 Mg/2 Ml Vial) 4 mg IVP Q6HR PRN PRN Reason: Nausea / Vomiting Last Admin: 10/22/22 07:52 Dose: 4 mg Pantoprazole Sodium (Pantoprazole 40 Mg Tablet) 40 mg PO DAILY [facility] Last Admin: 10/23/22 08:29 Dose: 40 mg Promethazine HCl (Promethazine 25 Mg Tablet) 25 mg PO Q6HR PRN PRN Reason: Nausea / Vomiting Last Admin: 10/21/22 20:19 Dose: 25 mg Sertraline HCl (Sertraline 50 Mg Tablet) 100 mg PO DAILY [facility] Last Admin: 10/23/22 08:29 Dose: 100 mg Sodium Chloride (Sodium Chloride Flush 0.9% 10 Ml Syringe) 10 ml IVP PRN PRN PRN Reason: NEEDED PER PROVIDER ORDERS Last Admin: 10/23/22 00:45 Dose: 10 ml Sodium Chloride (Sodium Chloride Flush 0.9% 10 Ml Syringe) 10 ml IVP 0100,0900,1700 [facility] Last Admin: 10/23/22 08:30 Dose: 10 ml Sodium Chloride (Sodium Chloride Flush 0.9% 10 Ml Syringe) 20 ml IVP PRN PRN PRN Reason: After Blood Draw Last Admin: 10/23/22 05:21 Dose: 20 ml Objective - Vital Signs/Intake & Output Reviewed Vital Signs: Yes Vital Signs: Vital Signs x48h Pulse Resp BP Pulse Ox 10/23/22 07:00 94 27 H 121/81 H 95 10/23/22 06:00 88 23 118/80 96 10/23/22 05:00 90 23 114/76 100 10/23/22 04:00 90 33 H 105/66 100 10/23/22 03:00 91 26 H 118/76 99 10/23/22 02:00 108 H 26 H 107/75 99 10/23/22 01:00 102 H 20 121/77 99 Intake & Output: Intake & Output 10/20/22 10/21/22 10/22/22 10/23/22 23:59 23:59 23:59 23:59 Intake Total 2375 8037.771 3170.313 944.267 Output Total 305 500 925 Balance 2070 7189.010 6378.313 944.267 - Objective General Appearance: positive: Alert, Mild distress Eyes Bilateral: positive: Normal inspection ENT: positive: ENT inspection nml Neck: positive: Nml inspection Respiratory: positive: Chest non-tender, Rales (crackles bilateral bases) Cardiovascular: positive: Irregularly irregular Peripheral Pulses: 1+ Radial (L), 2+ Radial (R), 2+ Dorsalis pedis (R), 2+ Dorsalis pedis (L) Abdomen: positive: Non-tender, Nml bowel sounds Back: positive: Nml inspection Skin: positive: Color nml, Warm, Dry (loss of sub q tissue) Extremities: positive: Nml appearance, Other (LUE edema pitting, weak, able to raise hand off of bed, weak handgrip) - Lab Results Fish Bones: 10/23/22 05:22 10/23/22 09:55 Other Labs: Lab Results x24hrs 10/23/22 10/23/22 10/23/22 Range/Units 05:22 05:22 05:22 WBC 6.5 (4.8-10.8) x10^3/uL RBC 2.63 L (4.20-5.40) 10^6/uL Hgb 7.2 L (12.0-16.0) g/dL Hct 23.9 L (37.0-47.0) % MCV 90.9 (81.0-99.0) fL MCH 27.4 (27.0-31.0) pg MCHC 30.1 L (32.0-36.0) g/dL RDW 16.2 H (12.0-15.0) % Plt Count 152 (130-450) 10^3/uL MPV 10.0 (7.9-10.8) fL Neut # (Auto) 5.5 (1.5-6.6) 10^3/uL Lymph # (Auto) 0.4 L (1.5-3.5) 10^3/uL [place] # (Auto) 0.5 (0.0-1.0) 10^3/uL Eos # (Auto) 0.1 (0.0-0.7) 10^3/uL Baso # (Auto) 0.0 (0.0-0.1) 10^3/uL Absolute Nucleated RBC 0.00 x10^3/uL Nucleated RBC % 0.0 /100WBC VBG pH 7.398 (7.31-7.41) Ionized Calcium 1.12 L (1.15-1.33) mmol/L Sodium 130 L (135-145) mmol/L Potassium 3.6 (3.5-5.0) mmol/L Chloride 99 L (101-111) mmol/L Carbon Dioxide 24 (21-32) mmol/L Anion Gap 7.0 (6-13) BUN 27 H (6-20) mg/dL Creatinine 1.0 (0.4-1.0) mg/dL Estimated GFR (MDRD) 54 L (>89) Glucose 97 (70-100) mg/dL Calcium 7.9 L (8.5-10.3) mg/dL Phosphorus (2.5-4.6) mg/dL Magnesium 1.8 (1.7-2.8) mg/dL Total Bilirubin 1.2 H (0.2-1.0) mg/dL AST 42 (10-42) IU/L ALT 34 (10-60) IU/L Alkaline Phosphatase 85 (42-121) IU/L Total Protein 4.6 L (6.7-8.2) g/dL Albumin 2.2 L (3.2-5.5) g/dL Globulin 2.4 (2.1-4.2) g/dL Albumin/Globulin Ratio 0.9 L (1.0-2.2) 10/23/22 Range/Units 05:22 WBC (4.8-10.8) x10^3/uL RBC (4.20-5.40) 10^6/uL Hgb (12.0-16.0) g/dL Hct (37.0-47.0) % MCV (81.0-99.0) fL MCH (27.0-31.0) pg MCHC (32.0-36.0) g/dL RDW (12.0-15.0) % Plt Count (130-450) 10^3/uL MPV (7.9-10.8) fL Neut # (Auto) (1.5-6.6) 10^3/uL Lymph # (Auto) (1.5-3.5) 10^3/uL [place] # (Auto) (0.0-1.0) 10^3/uL Eos # (Auto) (0.0-0.7) 10^3/uL Baso # (Auto) (0.0-0.1) 10^3/uL Absolute Nucleated RBC x10^3/uL Nucleated RBC % /100WBC VBG pH (7.31-7.41) Ionized Calcium (1.15-1.33) mmol/L Sodium (135-145) mmol/L Potassium (3.5-5.0) mmol/L Chloride (101-111) mmol/L Carbon Dioxide (21-32) mmol/L Anion Gap (6-13) BUN (6-20) mg/dL Creatinine (0.4-1.0) mg/dL Estimated GFR (MDRD) (>89) Glucose (70-100) mg/dL Calcium (8.5-10.3) mg/dL Phosphorus 3.0 (2.5-4.6) mg/dL Magnesium (1.7-2.8) mg/dL Total Bilirubin (0.2-1.0) mg/dL AST (10-42) IU/L ALT (10-60) IU/L Alkaline Phosphatase (42-121) IU/L Total Protein (6.7-8.2) g/dL Albumin (3.2-5.5) g/dL Globulin (2.1-4.2) g/dL Albumin/Globulin Ratio (1.0-2.2) - Diagnostic Imaging Diagnostic Imaging Results: positive: Final report reviewed (see assessment/ plan) Diagnostic Imaging Comments: Reviewed CT report, see CHF on problem list. Sepsis Event Note (H) - Evaluation Current Stage of Sepsis: Sepsis (Continues to require norepinephrine for to keep MAP>65) - Sepsis Criteria Sepsis Criteria: Recorded Temperature greater than 38.3C or Less than 36C, Recorded Heart Rate greater than 90 bpm, SBP less than 90 mmHg Assessment/Plan - Problem List (1) CHF (congestive heart failure) Impression: CT 10/22/22 Radiology Impression Mildly distended urinary bladder Mildly distended gallbladder without definite unenhanced CT findings of cholecystitis Bilteral lung base patchy mixed consolidative and ground glass airspace opacities are consistent with an infectious process. Small bilateral pleural effusions are presumably related , although these could be due to congestive heart failure as well. Received a dose of lasix overnight, no IV maintenance ordered. Plan: Will consider repeat echo, will continue to assess for signs of worsening heart failure/ edema and crackles in lungs, encourage time up in chair and ambulation for respiratory toilet. Resume daily lasix 20mg po. Qualifiers: Heart failure type: diastolic Heart failure chronicity: acute Qualified Code(s): I50.31 - Acute diastolic (congestive) heart failure (2) Gastrointestinal bleed Impression: Off norepinephrine since early this am. H7H 7.2/23.9 this am. Stooling? Plan: Per surgery plan for outpatient EGD. Qualifiers: GI bleed type/associated pathology: unspecified gastrointestinal hemorrhage type Qualified Code(s): K92.2 - Gastrointestinal hemorrhage, unspecified (3) Afib Impression: Currently rate controlled HR 80s. [id number] score 5. Plan: Continue apixaban for anticoagulation, and coreg for rate control. Qualifiers: Atrial fibrillation type: longstanding persistent Qualified Code(s): I48.11 - Longstanding persistent atrial fibrillation (4) Septic shock Impression: From UTI septic shock resolved Vital signs stable 121/81, HR 94 this am, no temperature in last couple of days. Norepinephrine off since 0340 this am. Has been on cefepime. WBC 6.[address] 10/22/22 Radiology Impression- see above under CHF problem. Plan: Will switch abx to ciprofloxacin, encourage time up in chair and ambulation for good respiratory toilet, transfer out of ICU to floor. (5) Shoulder injury Impression: lymph edema on exam, per spouse the plan is for shoulder joint replacement surgery once she recovers from this hospitalization. Qualifiers: Encounter type: initial encounter Laterality: left Qualified Code(s): S49.92XA - Unspecified injury of left shoulder and upper arm, initial encounter (6) Hyponatremia Impression: Na 130, stable/ resolved. Plan: not treatment.
[2022-10-23] MEDS: carvediloL 12.5 MG TABLET PO SCH ×2 (08:29→20:27)
[2022-10-23] MEDS: guaiFENesin 600 MG TABLET PO SCH ×2 (08:29→20:33)
[2022-10-23] MEDS: SERTRALINE 50 MG TABLET PO SCH (08:29)
[2022-10-23] MEDS: APIXABAN 5 MG TABLET PO SCH ×2 (08:29→20:32)
[2022-10-23] MEDS: PANTOPRAZOLE 40 MG TABLET PO SCH (08:29)
[2022-10-23] MEDS: HYDROXYCHLOROQUINE 200 MG TABLET PO SCH ×2 (08:29→20:32)
[2022-10-23 10:22] LABS: MAGNESIUM 1.9 mg/dL (1.7-2.8); POTASSIUM 3.8 mmol/L (3.5-5.0)
[2022-10-23 10:35] LABS: VANCOMYCIN,TROUGH 3.9 ug/mL (10.0-20.0)
[2022-10-23] MEDS: NYSTATIN POWDER 15 GM TOP SCH ×2 (11:15→20:26)
[2022-10-23] MEDS: polyethylene glycoL 3350 17 GM PACKET PO SCH (13:00)
[2022-10-23] MEDS: ONDANSETRON 4 MG/2 ML VIAL IVP PRN (17:36)
[2022-10-23] MEDS: ACETAMINOPHEN 500 MG TABLET PO PRN (18:18)
[2022-10-23] MEDS: CIPROFLOXACIN 250 MG TABLET PO SCH (20:33)
[2022-10-24] MEDS: SODIUM CHLORIDE FLUSH 0.9% 10 ML SYRINGE IVP SCH ×3 (03:16→16:00)
[2022-10-24 05:37] LABS: BASOPHILS % (AUTO) 0.4 %; EOSINOPHILS # (AUTO) 0.1 10^3/uL (0.0-0.7); EOSINOPHILS % (AUTO) 1.2 %; HGB - HEMOGLOBIN 7.6 g/dL (12.0-16.0); LYMPHOCYTES # (AUTO) 0.7 10^3/uL (1.5-3.5); LYMPHOCYTES % (AUTO) 9.4 %; MEAN CORPUSCULAR HEMOGLOBIN 27.3 pg (27.0-31.0); MEAN CORPUSCULAR HGB CONC 30.4 g/dL (32.0-36.0); MEAN CORPUSCULAR VOLUME 89.9 fL (81.0-99.0); MEAN PLATELET VOLUME 10.5 fL (7.9-10.8); MONOCYTES # (AUTO) 0.6 10^3/uL (0.0-1.0); MONOCYTES % (AUTO) 7.5 %; NEUTROPHILS # (AUTO) 6.2 10^3/uL (1.5-6.6); NEUTROPHILS % (AUTO) 80.6 %; NRBC ABSOLUTE COUNT (AUTO) 0.02 x10^3/uL; NUCLEATED RED BLOOD CELLS AUTO 0.3 /100WBC; PLT - PLATELET COUNT 160 10^3/uL (130-450); RED BLOOD COUNT 2.78 10^6/uL (4.20-5.40); RED CELL DISTRIBUTION WIDTH 16.4 % (12.0-15.0); WHITE BLOOD COUNT 7.6 x10^3/uL (4.8-10.8)
[2022-10-24 05:38] LABS: CALCIUM, IONIZED 1.18 mmol/L (1.15-1.33); VBG PH 7.391 (7.31-7.41)
[2022-10-24 05:44] LABS: CALCIUM 8.4 mg/dL (8.5-10.3); CREATININE 0.8 mg/dL (0.4-1.0); POTASSIUM 4.1 mmol/L (3.5-5.0)
[2022-10-24] MEDS: APIXABAN 5 MG TABLET PO SCH ×2 (08:55→20:32)
[2022-10-24] MEDS: HYDROXYCHLOROQUINE 200 MG TABLET PO SCH ×2 (08:55→20:34)
[2022-10-24] MEDS: carvediloL 12.5 MG TABLET PO SCH ×2 (08:55→20:34)
[2022-10-24] MEDS: guaiFENesin 600 MG TABLET PO SCH ×2 (08:56→20:35)
[2022-10-24] MEDS: FUROSEMIDE 20 MG/2 ML VIAL IVP SCH (08:56)
[2022-10-24] MEDS: SERTRALINE 50 MG TABLET PO SCH (08:56)
[2022-10-24] MEDS: PANTOPRAZOLE 40 MG TABLET PO SCH (08:56)
[2022-10-24] MEDS: polyethylene glycoL 3350 17 GM PACKET PO SCH (08:56)
[2022-10-24] MEDS: NYSTATIN POWDER 15 GM TOP SCH ×2 (08:57→21:00)
[2022-10-24] MEDS: CIPROFLOXACIN 250 MG TABLET PO SCH ×2 (09:09→20:35)
--- NOTE | 2022-10-24 09:20 | PROVIDER PROGRESS NOTE ---
Subjective - Prog Note Date Prog Note Date: 10/24/22 Prog Note Time: 09:19 - Subjective Subjective: Gaye was admitted on 10/16/22 from the ED following a week of GI bleed. On xarelto for Afib, was given 3 units PRBCs. No overnight events, norepinephrine is off since yesterday. Gaye is sitting up in chair appears emotionally distressed, she says her rest has been constantly interrupted by people coming and going in her room, and that she feels that she has to work very hard to breath. Current Medications - Current Medications Current Medications: Acetaminophen (Acetaminophen 500 Mg Tablet) 1,000 mg PO Q6H PRN PRN Reason: Mild Pain Or Fever>38c(100.4f) Last Admin: 10/23/22 18:18 Dose: 1,000 mg Albuterol/Ipratropium (Ipratropium/Albuterol 3 Ml Neb) 3 ml INH Q4HR PRN PRN Reason: Shortness of Air/Wheezing Apixaban (Apixaban 5 Mg Tablet) 5 mg PO BID [facility] Last Admin: 10/24/22 08:55 Dose: 5 mg Carvedilol (Carvedilol 12.5 Mg Tablet) 25 mg PO BID [facility] Last Admin: 10/24/22 08:55 Dose: 25 mg Ciprofloxacin (Ciprofloxacin 250 Mg Tablet) 500 mg PO BID [facility] Last Admin: 10/24/22 09:09 Dose: 500 mg Furosemide (Furosemide 20 Mg/2 Ml Vial) 20 mg IVP DAILY [facility] Last Admin: 10/24/22 08:56 Dose: 20 mg Guaifenesin (Guaifenesin 600 Mg Tablet) 600 mg PO BID [facility] Last Admin: 10/24/22 08:56 Dose: 600 mg Hydralazine HCl (Hydralazine Inj 20 Mg/Ml Vial) 10 mg IVP Q6HR PRN PRN Reason: Hypertensive Emergency Last Admin: 10/21/22 08:30 Dose: 10 mg Hydroxychloroquine Sulfate (Hydroxychloroquine 200 Mg Tablet) 200 mg PO BID [facility] Last Admin: 10/24/22 08:55 Dose: 200 mg Promethazine HCl 25 mg/ Sodium (Chloride) 51 mls @ 100 mls/hr IV Q6H PRN PRN Reason: Nausea / Vomiting Last Infusion: 10/22/22 17:22 Dose: Infused Lorazepam (Lorazepam 1 Mg Tablet) 2 mg PO HS PRN PRN Reason: Anxiety Last Admin: 10/23/22 20:28 Dose: 2 mg Metoprolol Tartrate (Metoprolol 5 Mg/5 Ml Vial) 2.5 mg IVP Q6H PRN PRN Reason: tachycardia HR>120 Last Admin: 10/21/22 08:26 Dose: 2.5 mg Nystatin (Nystatin Powder 15 Gm) 1 applic TOP BID [facility] Last Admin: 10/24/22 08:57 Dose: 1 applic Ondansetron HCl (Ondansetron 4 Mg/2 Ml Vial) 4 mg IVP Q6HR PRN PRN Reason: Nausea / Vomiting Last Admin: 10/23/22 17:36 Dose: 4 mg Pantoprazole Sodium (Pantoprazole 40 Mg Tablet) 40 mg PO DAILY [facility] Last Admin: 10/24/22 08:56 Dose: 40 mg Polyethylene Glycol (Polyethylene Glycol 3350 17 Gm Packet) 17 gm PO DAILY [facility] Last Admin: 10/24/22 08:56 Dose: 17 gm Promethazine HCl (Promethazine 25 Mg Tablet) 25 mg PO Q6HR PRN PRN Reason: Nausea / Vomiting Last Admin: 10/21/22 20:19 Dose: 25 mg Sertraline HCl (Sertraline 50 Mg Tablet) 100 mg PO DAILY [facility] Last Admin: 10/24/22 08:56 Dose: 100 mg Sodium Chloride (Sodium Chloride Flush 0.9% 10 Ml Syringe) 10 ml IVP PRN PRN PRN Reason: NEEDED PER PROVIDER ORDERS Last Admin: 10/23/22 17:53 Dose: 20 ml Sodium Chloride (Sodium Chloride Flush 0.9% 10 Ml Syringe) 10 ml IVP 0100,0900,1700 [facility] Last Admin: 10/24/22 08:56 Dose: 20 ml Sodium Chloride (Sodium Chloride Flush 0.9% 10 Ml Syringe) 20 ml IVP PRN PRN PRN Reason: After Blood Draw Last Admin: 10/23/22 05:21 Dose: 20 ml Objective - Vital Signs/Intake & Output Vital Signs: Vital Signs x48h Temp Pulse Resp BP Pulse Ox 10/24/22 08:10 36.6 C 112 H 21 134/87 H 92 10/24/22 05:00 92 Intake & Output: Intake & Output 01/05/10/22/22 10/23/22 10/24/22 23:59 23:59 23:59 23:59 Intake Total 3249.315 0563.313 2294.267 175 Output Total 500 925 100 0 Balance 6426.113 2007.313 2194.267 175 - Objective General Appearance: positive: Mild distress (emotional distress) Eyes Bilateral: positive: Normal inspection ENT: positive: ENT inspection nml Neck: positive: Nml inspection Respiratory: positive: Rales (bases up to mid back bilateral) Cardiovascular: positive: Irregularly irregular Peripheral Pulses: 1+ Radial (R), 1+ Radial (L), 1+ Dorsalis pedis (R), 1+ Dorsalis pedis (L) Abdomen: positive: Non-tender Rectal: positive: Non-tender Back: positive: Nml inspection Skin: positive: Color nml, Warm, Dry Extremities: positive: Other (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) Neurologic/Psychiatric: positive: Oriented x3 - Lab Results Fish Bones: 10/24/22 05:20 10/24/22 05:20 Other Labs: Lab Results x24hrs 10/24/22 10/24/22 10/24/22 Range/Units 05:20 05:20 05:20 WBC 7.6 (4.8-10.8) x10^3/uL RBC 2.78 L (4.20-5.40) 10^6/uL Hgb 7.6 L (12.0-16.0) g/dL Hct 25.0 L (37.0-47.0) % MCV 89.9 (81.0-99.0) fL MCH 27.3 (27.0-31.0) pg MCHC 30.4 L (32.0-36.0) g/dL RDW 16.4 H (12.0-15.0) % Plt Count 160 (130-450) 10^3/uL MPV 10.5 (7.9-10.8) fL Neut # (Auto) 6.2 (1.5-6.6) 10^3/uL Lymph # (Auto) 0.7 L (1.5-3.5) 10^3/uL Kings # (Auto) 0.6 (0.0-1.0) 10^3/uL Eos # (Auto) 0.1 (0.0-0.7) 10^3/uL Baso # (Auto) 0.0 (0.0-0.1) 10^3/uL Absolute Nucleated RBC 0.02 x10^3/uL Nucleated RBC % 0.3 /100WBC VBG pH 7.391 (7.31-7.41) Ionized Calcium 1.18 (1.15-1.33) mmol/L Sodium 133 L (135-145) mmol/L Potassium 4.1 (3.5-5.0) mmol/L Chloride 100 L (101-111) mmol/L Carbon Dioxide 24 (21-32) mmol/L Anion Gap 9.0 (6-13) BUN 26 H (6-20) mg/dL Creatinine 0.8 (0.4-1.0) mg/dL Estimated GFR (MDRD) 70 L (>89) Glucose 95 (70-100) mg/dL Calcium 8.4 L (8.5-10.3) mg/dL Magnesium (1.7-2.8) mg/dL Last Dose Date Last Dose Time Vancomycin Trough (10.0-20.0) ug/mL 10/23/22 10/23/22 Range/Units 09:55 09:55 WBC (4.8-10.8) x10^3/uL RBC (4.20-5.40) 10^6/uL Hgb (12.0-16.0) g/dL Hct (37.0-47.0) % MCV (81.0-99.0) fL MCH (27.0-31.0) pg MCHC (32.0-36.0) g/dL RDW (12.0-15.0) % Plt Count (130-450) 10^3/uL MPV (7.9-10.8) fL Neut # (Auto) (1.5-6.6) 10^3/uL Lymph # (Auto) (1.5-3.5) 10^3/uL [place] # (Auto) (0.0-1.0) 10^3/uL Eos # (Auto) (0.0-0.7) 10^3/uL Baso # (Auto) (0.0-0.1) 10^3/uL Absolute Nucleated RBC x10^3/uL Nucleated RBC % /100WBC VBG pH (7.31-7.41) Ionized Calcium (1.15-1.33) mmol/L Sodium (135-145) mmol/L Potassium 3.8 (3.5-5.0) mmol/L Chloride (101-111) mmol/L Carbon Dioxide (21-32) mmol/L Anion Gap (6-13) BUN (6-20) mg/dL Creatinine (0.4-1.0) mg/dL Estimated GFR (MDRD) (>89) Glucose (70-100) mg/dL Calcium (8.5-10.3) mg/dL Magnesium 1.9 (1.7-2.8) mg/dL Last Dose Date 10/20/22 Last Dose Time 2049 Vancomycin Trough 3.9 L (10.0-20.0) ug/mL - Diagnostic Imaging Diagnostic Imaging Results: positive: Final report reviewed Sepsis Event Note (H) - Evaluation Current Stage of Sepsis: Sepsis (Continues to require norepinephrine for to keep MAP>65) - Sepsis Criteria Sepsis Criteria: Recorded Temperature greater than 38.3C or Less than 36C, Recorded Heart Rate greater than 90 bpm, SBP less than 90 mmHg Assessment/Plan - Problem List (1) CHF (congestive heart failure) Impression: CXR thsi am shows central pulmonary infiltrates suggestive of vascular congestion or infection. Her home lasix was stopped during her period of hyptension while in the ICU. Plan: Will consider repeat echo, will continue to assess for signs of worsening heart failure/ edema and crackles in lungs, encourage time up in chair and ambul ation for respiratory toilet. Resume daily lasix 20mg po. lower O2 sats this morning, lasix IV dose ordered Qualifiers: Heart failure type: diastolic Heart failure chronicity: acute Qualified Code(s): I50.31 - Acute diastolic (congestive) heart failure (2) Gastrointestinal bleed Impression: Off norepinephrine since yesterday, H&H stable this am Stooling? Plan: Per surgery plan for outpatient EGD. Qualifiers: GI bleed type/associated pathology: unspecified gastrointestinal hemorrhage type Qualified Code(s): K92.2 - Gastrointestinal hemorrhage, unspecified (3) Afib Impression: Currently rate controlled HR 80s. [id number] score 5. Plan: Continue apixaban for anticoagulation, and coreg for rate control. Qualifiers: Atrial fibrillation type: longstanding persistent Qualified Code(s): I48.11 - Longstanding persistent atrial fibrillation (4) Septic shock Impression: From UTI septic shock resolved Vital signs stable 121/81, HR 94 this am, no temperature in last couple of days. Norepinephrine off since 0340 this am. Has been on cefepime. WBC 6.[address] 10/22/22 Radiology Impression- see above under CHF problem. Plan: Abx started 10/20/22 will continue for a seven day course total. (5) Shoulder injury Impression: lymph edema on exam, per spouse the plan is for shoulder joint replacement margoth dianna once she recovers from this hospitalization. Qualifiers: Encounter type: initial encounter Laterality: left Qualified Code(s): S49.92XA - Unspecified injury of left shoulder and upper arm, initial encounter (6) Hyponatremia Impression: Problem Resolved Impression: Na 130, stable/ resolved. Plan: not treatment.
--- NOTE | 2022-10-24 10:44 | XRAY Report ---
PROCEDURE: Chest 1 View X-Ray INDICATIONS: hypoxia TECHNIQUE: One view of the chest was acquired. COMPARISON: 10/20/2022 FINDINGS: Right IJ since venous line tip near the cavoatrial junction. A right shoulder arthroplasty partially imaged. Patient's mandible obscures the lung apices. Heart size is enlarged, there is moderate vascular congestion. Central pulmonary infiltrates noted wi th peripheral clearing. Blunted both costophrenic angles. Osseous structures are demineralized, and there is erosion of the left humeral head IMPRESSION: Right IJ since venous line tip near the cavoatrial junction Cardiomegaly and worsening vascular congestion with central pulmonary infiltrates reflecting pulmonar y edema and/or infection. Reviewed by: Daron Evans MD on 10/24/2022 9:43 AM AKST Approved by: Daron Evans MD on 10/24/2022 9:43 AM [place] Station ID: [id number]
[2022-10-24] MEDS ORDERED: FUROSEMIDE 40 MG/4 ML VIAL IVP STA (15:00)
[2022-10-24] MEDS: SODIUM CHLORIDE FLUSH 0.9% 10 ML SYRINGE IVP PRN ×2 (15:26→16:00)
[2022-10-24] MEDS ORDERED: traMADol 50 MG TABLET PO PRN (15:50)
[2022-10-24] MEDS: ACETAMINOPHEN 500 MG TABLET PO PRN ×2 (15:57→23:00)
[2022-10-24] MEDS: LORazepam 1 MG TABLET PO PRN (20:32)
[2022-10-25] MEDS: SODIUM CHLORIDE FLUSH 0.9% 10 ML SYRINGE IVP SCH ×3 (05:36→16:20)
[2022-10-25] MEDS: SODIUM CHLORIDE FLUSH 0.9% 10 ML SYRINGE IVP PRN ×4 (05:37→11:53)
[2022-10-25 06:03] LABS: BASOPHILS % (AUTO) 0.3 %; CALCIUM, IONIZED 1.16 mmol/L (1.15-1.33); EOSINOPHILS # (AUTO) 0.2 10^3/uL (0.0-0.7); EOSINOPHILS % (AUTO) 2.1 %; HCT - HEMATOCRIT 23.4 % (37.0-47.0); HGB - HEMOGLOBIN 7.2 g/dL (12.0-16.0); LYMPHOCYTES % (AUTO) 12.7 %; MEAN CORPUSCULAR HEMOGLOBIN 27.5 pg (27.0-31.0); MEAN CORPUSCULAR HGB CONC 30.8 g/dL (32.0-36.0); MEAN CORPUSCULAR VOLUME 89.3 fL (81.0-99.0); MEAN PLATELET VOLUME 10.9 fL (7.9-10.8); MONOCYTES # (AUTO) 0.5 10^3/uL (0.0-1.0); NEUTROPHILS # (AUTO) 6.1 10^3/uL (1.5-6.6); PLT - PLATELET COUNT 178 10^3/uL (130-450); RED BLOOD COUNT 2.62 10^6/uL (4.20-5.40); RED CELL DISTRIBUTION WIDTH 16.7 % (12.0-15.0); VBG PH 7.406 (7.31-7.41); WHITE BLOOD COUNT 7.9 x10^3/uL (4.8-10.8)
[2022-10-25 06:13] LABS: CALCIUM 8.2 mg/dL (8.5-10.3); CREATININE 0.9 mg/dL (0.4-1.0); POTASSIUM 3.6 mmol/L (3.5-5.0)
[2022-10-25] MEDS: CIPROFLOXACIN 250 MG TABLET PO SCH ×2 (08:09→20:25)
[2022-10-25] MEDS: PANTOPRAZOLE 40 MG TABLET PO SCH (08:09)
[2022-10-25] MEDS: APIXABAN 5 MG TABLET PO SCH ×2 (08:09→20:25)
[2022-10-25] MEDS: guaiFENesin 600 MG TABLET PO SCH ×2 (08:09→20:25)
[2022-10-25] MEDS: SERTRALINE 50 MG TABLET PO SCH (08:09)
[2022-10-25] MEDS: HYDROXYCHLOROQUINE 200 MG TABLET PO SCH ×2 (08:09→20:25)
[2022-10-25] MEDS: polyethylene glycoL 3350 17 GM PACKET PO SCH (08:10)
[2022-10-25] MEDS: carvediloL 12.5 MG TABLET PO SCH ×2 (08:12→20:25)
[2022-10-25] MEDS: FUROSEMIDE 20 MG/2 ML VIAL IVP SCH (08:12)
[2022-10-25] MEDS: NYSTATIN POWDER 15 GM TOP SCH ×2 (08:19→20:25)
--- NOTE | 2022-10-25 08:38 | PROVIDER PROGRESS NOTE ---
Progress Note Subjective - Prog Note Date Prog Note Date: 10/24/22 Prog Note Time: 09:19 - Subjective Subjective: Gaye was admitted on 10/16/22 from the ED following a week of GI bleed. On xarelto for Afib, was given 3 units PRBCs. No overnight events, urine output was 300mL yesterday despite an extra dose 40mg lasis and 0 urine output today. This morning she is sitting on edge of bed eblows proped up on her tray, she has nasal cannula 3L on her face and her head is down. She looks up greets me by name then states "i'm not feeling it today." She appears emotionally distressed and indicates she can't catch her breath. 1300- Revisit to pt's room: Discussed CTPA results with pt and her . No PE on imaging, your creatinine is good so we have room to work with aggressive diuresis. Gaye states this morning she urinated in the bed and has gotten up several times to go to the bathroom. Current Medications - Current Medications Current Medications: Acetaminophen (Acetaminophen 500 Mg Tablet) 1,000 mg PO Q6H PRN PRN Reason: Mild Pain Or Fever>38c(100.4f) Last Admin: 10/24/22 23:00 Dose: 1,000 mg Albuterol/Ipratropium (Ipratropium/Albuterol 3 Ml Neb) 3 ml INH Q4HR PRN PRN Reason: Shortness of Air/Wheezing Apixaban (Apixaban 5 Mg Tablet) 5 mg PO BID [facility] Last Admin: 10/25/22 08:09 Dose: 5 mg Carvedilol (Carvedilol 12.5 Mg Tablet) 25 mg PO BID [facility] Last Admin: 10/25/22 08:12 Dose: 25 mg Ciprofloxacin (Ciprofloxacin 250 Mg Tablet) 500 mg PO BID [facility] Last Admin: 10/25/22 08:09 Dose: 500 mg Furosemide (Furosemide 20 Mg/2 Ml Vial) 20 mg IVP DAILY [facility] Last Admin: 10/25/22 08:12 Dose: 20 mg Guaifenesin (Guaifenesin 600 Mg Tablet) 600 mg PO BID [facility] Last Admin: 10/25/22 08:09 Dose: 600 mg Hydralazine HCl (Hydralazine Inj 20 Mg/Ml Vial) 10 mg IVP Q6HR PRN PRN Reason: Hypertensive Emergency Last Admin: 10/21/22 08:30 Dose: 10 mg Hydroxychloroquine Sulfate (Hydroxychloroquine 200 Mg Tablet) 200 mg PO BID [facility] Last Admin: 10/25/22 08:09 Dose: 200 mg Promethazine HCl 25 mg/ Sodium (Chloride) 51 mls @ 100 mls/hr IV Q6H PRN PRN Reason: Nausea / Vomiting Last Infusion: 10/22/22 17:22 Dose: Infused Lorazepam (Lorazepam 1 Mg Tablet) 2 mg PO HS PRN PRN Reason: Anxiety Last Admin: 10/24/22 20:32 Dose: 2 mg Metoprolol Tartrate (Metoprolol 5 Mg/5 Ml Vial) 2.5 mg IVP Q6H PRN PRN Reason: tachycardia HR>120 Last Admin: 10/21/22 08:26 Dose: 2.5 mg Nystatin (Nystatin Powder 15 Gm) 1 applic TOP BID [facility] Last Admin: 10/25/22 08:19 Dose: 1 applic Ondansetron HCl (Ondansetron 4 Mg/2 Ml Vial) 4 mg IVP Q6HR PRN PRN Reason: Nausea / Vomiting Last Admin: 10/23/22 17:36 Dose: 4 mg Pantoprazole Sodium (Pantoprazole 40 Mg Tablet) 40 mg PO DAILY [facility] Last Admin: 10/25/22 08:09 Dose: 40 mg Polyethylene Glycol (Polyethylene Glycol 3350 17 Gm Packet) 17 gm PO DAILY [facility] Last Admin: 10/25/22 08:10 Dose: 17 gm Promethazine HCl (Promethazine 25 Mg Tablet) 25 mg PO Q6HR PRN PRN Reason: Nausea / Vomiting Last Admin: 10/21/22 20:19 Dose: 25 mg Sertraline HCl (Sertraline 50 Mg Tablet) 100 mg PO DAILY [facility] Last Admin: 10/25/22 08:09 Dose: 100 mg Sodium Chloride (Sodium Chloride Flush 0.9% 10 Ml Syringe) 10 ml IVP PRN PRN PRN Reason: NEEDED PER PROVIDER ORDERS Last Admin: 10/25/22 05:37 Dose: 10 ml Sodium Chloride (Sodium Chloride Flush 0.9% 10 Ml Syringe) 10 ml IVP 0100,0900,1700 [facility] Last Admin: 10/25/22 08:10 Dose: 10 ml Sodium Chloride (Sodium Chloride Flush 0.9% 10 Ml Syringe) 20 ml IVP PRN PRN PRN Reason: After Blood Draw Last Admin: 10/25/22 05:37 Dose: 20 ml Tramadol HCl (Tramadol 50 Mg Tablet) 50 mg PO Q4HR PRN PRN Reason: PAIN Objective - Vital Signs/Intake & Output Vital Signs: Vital Signs Temp 36.8 C 10/25/22 05:33 Pulse 98 10/25/22 05:33 Resp 18 10/25/22 05:33 BP 135/84 H 10/25/22 05:33 Pulse Ox 92 10/25/22 07:55 O2 Flow Rate 3 10/25/22 07:55 Intake & Output 10/24/22 10/24/22 10/25/22 11:59 23:59 11:59 Intake Total 350 1100 250 Output Total 300 0 Balance 50 1100 250 Intake: Oral 350 1100 250 Output: Urine 300 0 Other: # Voids 1 1 % Meal consumed 90% 100% - Objective General Appearance: positive: Tripod position sitting on edge of bed with elbows on bedside table, appears fatigued and irritated, "states I'm just over it." Eyes Bilateral: positive: Normal inspection ENT: positive: ENT inspection nml Neck: positive: Nml inspection Respiratory: positive: clear apex to base bilateral. 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), BLE edema +2 pitting R>L Neurologic/Psychiatric: positive: Oriented x3 - Lab Results Laboratory Tests 10/25/22 10/25/22 10/25/22 05:40 05:40 05:40 WBC 7.9 RBC 2.62 L Hgb 7.2 L Hct 23.4 L MCV 89.3 MCH 27.5 MCHC 30.8 L RDW 16.7 H Plt Count 178 MPV 10.9 H Neut # (Auto) 6.1 Lymph # (Auto) 1.0 L [place] # (Auto) 0.5 Eos # (Auto) 0.2 Baso # (Auto) 0.0 Absolute Nucleated RBC 0.00 Nucleated RBC % 0.0 VBG pH 7.406 Ionized Calcium 1.16 Sodium 133 L Potassium 3.6 Chloride 99 L Carbon Dioxide 26 Anion Gap 8.0 BUN 27 H Creatinine 0.9 Estimated GFR (MDRD) 61 L Glucose 101 H Calcium 8.2 L - Diagnostic Imaging Diagnostic Imaging Results: positive: Final report reviewed CT 10/25/22 Impression: 1. No evidence of pulmonary emboli. Prominence of pulmonary artery size is concerning for pulmonary vascular hypertension. 2. Extensive airspace opacities and groundglass opacities scattered throughout bilateral lung mackey suggestive of extensive pulmonary infiltrates and edeam. Small to moderate left pleural effusion and trace right pleural effusion. No pneumothorax. Airway is patent. 3. Cardiomegaly, no pleural effusion. Prominent mediastinal or hilar lymph nodes suggestive of reactive inflammatory nodes. No thoracic aortic aneurysm. 4. Mild to moderate atherosclerotic disease and coronary vessels and throacic aorta. Clinical Recommendation statements; In patients <35 years with an ITN detected on CT, MRI, or extrathryroidal ultr asound, the committee recommends further evaluation wit hdedicated thyroid ultrasound if the nodule is "e1 cm and has not suspicious imaging features, and if the patient has normal life expectancy. In patients "e35 years with an ITN detected on CT, MRI, or extrathyroidal ultrasound, the committee recommends further evaluation with dedicated thyroid ultrasound if the nodule is "e1.5cm and has no suspicious imaging features, and if the patient has normal life expectancy. (ACR, 2014) Sepsis Event Note (H) - Evaluation Current Stage of Sepsis: Resolved. - Sepsis Criteria Sepsis Criteria: Recorded Temperature greater than 38.3C or Less than 36C, Recorded Heart Rate greater than 90 bpm, SBP less than 90 mmHg Assessment/Plan - Problem List (1) CHF (congestive heart failure) Impression: Continued shortness of breath, extra dose of 40mg lasix yesterday, poor diuretic response 300mL output yesterday 0mL today. Now on 3L NC today. Most likely her SOB is related to heart failure and poor diuresis but will consider PE as alternative diagnosis. Plan: CTPA impression, see above, no PE. CT results consistent with pulonary edema. Cr<0.9, will pursue aggressive diuresis. Qualifiers: Heart failure type: diastolic Heart failure chronicity: acute Qualified Code(s): I50.31 - Acute diastolic (congestive) heart failure (2) Gastrointestinal bleed Impression: H&H stable for several days. Plan: Per surgery plan for outpatient EGD. Qualifiers: GI bleed type/associated pathology: unspecified gastrointestinal hemorrhage type Qualified Code(s): K92.2 - Gastrointestinal hemorrhage, unspecified (3) Afib Impression: Currently rate controlled. [id number] score 5. Plan: Continue apixaban for anticoagulation, and coreg for rate control. Qualifiers: Atrial fibrillation type: longstanding persistent Qualified Code(s): I48.11 - Longstanding persistent atrial fibrillation (4) Septic shock Impression: UTI septic shock resolved Vital signs stable, no temperature in last couple of days. Plan: Abx started 10/20/22 will continue for a seven day course total. (5) Shoulder injury Impression: stable lymph edema on exam, per spouse the plan is for shoulder joint replacement surgery once she recovers from this hospitalization. Plan: stable, no treatment Qualifiers: Encounter type: initial encounter Laterality: left Qualified Code(s): S49.92XA - Unspecified injury of left shoulder and upper arm, initial encounter (6) Hyponatremia Impression: Problem Resolved stable/ resolved. Plan: no treatment.
[2022-10-25] MEDS ORDERED: iohexoL-300 100 ML VIAL ONE (08:57)
[2022-10-25] MEDS ORDERED: iohexoL-300 100 ML VIAL IVP ONE (10:03)
--- NOTE | 2022-10-25 10:15 | CT Report ---
PROCEDURE: ANGIO CHEST W/WO INDICATIONS: sob severe CONTRAST: 80ml Omnipaque 300 TECHNIQUE: After the administration of intravenous contrast, 2 mm axial images were acquired from the pulmonary apices to the posterior costophrenic angles during the arterial phase. In addition, 1 mm lung kernel and 5 mm soft tissue kernel reconstructions were performed. 3-dimensional coronal oblique maximum int ensity projection (MIP) reformats, 8 mm axial MIP, and 5 mm coronal and sagittal MPR reformats were t hen performed through the thorax. For radiation dose reduction, the following was used: automated exp osure control, adjustment of mA and/or kV according to patient size. COMPARISON: CT chest from the same day at 10/20/2022. CT angiogram of chest dated 08/10/2022. FINDINGS: Image quality: Excellent. Pulmonary arteries: Pulmonary arteries are prominent in size, and demonstrate no intraluminal fillin g defects to suggest central pulmonary embolism. Lungs and pleura: There is small to moderate left-sided pleural effusion and small right pleural effu kelli with adjacent atelectasis of bilateral lower lobes. Extensive airspace opacities and groundglass opacities are noted scattered throughout bilateral lung mackey. No pneumothorax. Central and periphe ral airway is patent. Mediastinum: There is cardiomegaly, without pericardial effusion. Atherosclerotic calcifications are noted throughout the coronary vessels and thoracic aorta. Enlarged mediastinal and hilar lymph nodes are noted measures up to 2 cm in size in right paratracheal space. Thoracic aorta is normal in calibe r and enhancement. Esophagus is normal in caliber, with a small hiatal hernia. Bones and chest wall: There is prior right shoulder arthroplasty with beam hardening artifacts. No harper spicious bony lesions. No acute vertebral body compression fracture. No axillary or supraclavicular a denopathy. The thyroid is normal in size and there are no incidental findings. Abdomen: Visualized upper abdominal solid organs appear normal in the early arterial phase of enhanc ement. IMPRESSION: 1. No evidence of pulmonary emboli. Prominence of pulmonary artery size is concerning for pulmonary v ascular hypertension. 2. Extensive airspace opacities and groundglass opacities scattered throughout bilateral lung mackey suggestive of extensive pulmonary infiltrates and edema. Small to moderate left pleural effusion and trace right pleural effusion. No pneumothorax. Airway is patent. 3. Cardiomegaly, no pleural effusion. Prominent mediastinal or hilar lymph nodes suggestive of reacti ve inflammatory nodes. No thoracic aortic aneurysm. 4. Mild to moderate atherosclerotic disease and coronary vessels and thoracic aorta. CLINICAL RECOMMENDATION STATEMENTS: In patients <35 years with an ITN detected on CT, MRI, or extrathyroidal ultrasound, the Committee re commends further evaluation with dedicated thyroid ultrasound if the nodule is "e1 cm and has no susp icious imaging features, and if the patient has normal life expectancy. In patients "e35 years with an ITN detected on CT, MRI, or extrathyroidal ultrasound, the Committee r ecommends further evaluation with dedicated thyroid ultrasound if the nodule is "e1.5 cm and has no s uspicious imaging features, and if the patient has normal life expectancy. (ACR, 2014) Reviewed by: Amarjit Harrison MD on 10/25/2022 10:14 AM PST Approved by: Amarjit Harrison MD on 10/25/2022 10:14 AM PST Station ID: [id number]
[2022-10-25] MEDS: BUMETANIDE 1 MG/4 ML VIAL IVP SCH (11:50)
[2022-10-25] MEDS: LORazepam 1 MG TABLET PO PRN (20:26)
[2022-10-26] MEDS: SODIUM CHLORIDE FLUSH 0.9% 10 ML SYRINGE IVP PRN ×3 (00:16→14:34)
[2022-10-26] MEDS: SODIUM CHLORIDE FLUSH 0.9% 10 ML SYRINGE IVP SCH ×3 (00:17→20:15)
[2022-10-26 06:03] LABS: BASOPHILS % (AUTO) 0.2 %; EOSINOPHILS % (AUTO) 0.9 %; HCT - HEMATOCRIT 22.4 % (37.0-47.0); LYMPHOCYTES % (AUTO) 7.9 %; MEAN CORPUSCULAR HEMOGLOBIN 27.2 pg (27.0-31.0); MEAN CORPUSCULAR HGB CONC 30.8 g/dL (32.0-36.0); MEAN CORPUSCULAR VOLUME 88.2 fL (81.0-99.0); MEAN PLATELET VOLUME 10.8 fL (7.9-10.8); MONOCYTES % (AUTO) 4.7 %; NEUTROPHILS % (AUTO) 82.7 %; PLT - PLATELET COUNT 230 10^3/uL (130-450); RED BLOOD COUNT 2.54 10^6/uL (4.20-5.40); RED CELL DISTRIBUTION WIDTH 16.9 % (12.0-15.0); WHITE BLOOD COUNT 10.3 x10^3/uL (4.8-10.8)
[2022-10-26 06:07] LABS: HGB - HEMOGLOBIN 6.9 g/dL (12.0-16.0)
[2022-10-26 06:08] LABS: CALCIUM 7.9 mg/dL (8.5-10.3); CREATININE 0.8 mg/dL (0.4-1.0); POTASSIUM 2.9 mmol/L (3.5-5.0)
[2022-10-26 06:16] LABS: BAND NEUTROPHILS % (MANUAL) 0 %
[2022-10-26 06:24] LABS: ABNORMAL LYMPHS % (MANUAL) 1 %; EOSINOPHILS # (MANUAL) 0.3 10^3/uL (0-0.7); LYMPHOCYTES % (MANUAL) 9 %; METAMYELOCYTES % (MANUAL) 1 %; MONOCYTES # (MANUAL) 0.2 10^3/uL (0.0-1.0); MYELOCYTES % (MANUAL) 3 %; NEUTROPHILS # (MANUAL) 8.3 10^3/uL (1.5-6.6)
[2022-10-26 06:25] LABS: PLATELET ESTIMATE, MANUAL NORMAL (130-450,000) (NORMAL); PLATELET MORPHOLOGY NORMAL APPEARANCE (NORMAL); WBC MORPHOLOGY (MULTIPLE) NORMAL APPEARANCE (NORMAL)
[2022-10-26 06:26] LABS: DIFFERENTIAL COMMENT MANUAL DIFFERENTIAL
[2022-10-26] MEDS: guaiFENesin 600 MG TABLET PO SCH ×2 (08:38→20:15)
[2022-10-26] MEDS: PANTOPRAZOLE 40 MG TABLET PO SCH (08:38)
[2022-10-26] MEDS: CIPROFLOXACIN 250 MG TABLET PO SCH ×2 (08:38→20:15)
[2022-10-26] MEDS: carvediloL 12.5 MG TABLET PO SCH ×2 (08:38→20:15)
[2022-10-26] MEDS: APIXABAN 5 MG TABLET PO SCH (08:38)
[2022-10-26] MEDS: SERTRALINE 50 MG TABLET PO SCH (08:39)
[2022-10-26] MEDS: polyethylene glycoL 3350 17 GM PACKET PO SCH (08:39)
[2022-10-26] MEDS: NYSTATIN POWDER 15 GM TOP SCH ×2 (08:39→20:15)
[2022-10-26] MEDS: HYDROXYCHLOROQUINE 200 MG TABLET PO SCH ×2 (08:39→20:14)
--- NOTE | 2022-10-26 09:15 | PROVIDER PROGRESS NOTE ---
Assessment/Plan - Problem List (1) Symptomatic anemia Assessment/Plan: Her hemoglobin is dropped to 6.9 today, despite getting IV diuretics. In review of her I's and O's however she has never been in negative fluid balance. Plan: Transfuse 1 unit of PRBCs IV Lasix after the transfusion Follow hemoglobin every 12 hours We will stop her Eliquis which was resumed when it was thought that she had stopped the GI bleed. (2) Acute on chronic diastolic CHF (congestive heart failure) Impression: She has continued shortness of breath even when she speaks, is on 2L of O2 NC today. Most likely her SOB is related to heart failure and poor diuresis. Pulmonary embolism was ruled out yesterday with a CTA of chest. That CY reported scattered opacities c/w infection, but she has no WBC elevation. Troponins were negative for acute MT earlier this hospitalization as well Echo was done several days ago that showed preserved LVEF of 60 to 65%. 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 IS will be re- ordered given the bilateral atelectasis reported on CT chest done yesterday. Will continue Mucinex. Qualifiers: Heart failure type: diastolic Heart failure chronicity: acute Qualified Code(s): I50.31 - Acute diastolic (congestive) heart failure (3) Gastrointestinal bleed Impression: When she was in the ED she received transfusions, was seen by general surgery and plan was for outpatient EGD. Her apixaban was resumed when the GI bleeding was felt to be stopped, due to her stable hemoglobins every day (until today). Hemoglobin has now dropped to 6.9 today despite being on iv BID diuretic Plan: Need to determine best timing for EGD. WE may need to re-consult General Surgery. Stop apixaban Give blood transfusion today Qualifiers: GI bleed type/associated pathology: unspecified gastrointestinal hemorrhage type Qualified Code(s): K92.2 - Gastrointestinal hemorrhage, unspecified (4) Afib Impression: Currently rate controlled. [id number] score 5. Plan: Continue coreg for rate control. Stopping apixaban today due to #3 and #1 Qualifiers: Atrial fibrillation type: longstanding persistent Qualified Code(s): I48.11 - Longstanding persistent atrial fibrillation (5) Hyponatremia Impression: This has recurred. This may be due to loop diuretic use and/or free water excess since she has not been in negative fluid balance despite loop diuretics. Plan: Today we will start a free water restriction of 1000 cc total per day (6) Hypokalemia This is related to IV diuretic use possibly. Plan: Potassium riders Follow BMP daily (7) Septic shock Impression: UTI causing septic shock has resolved. Vital signs stable, no temperature in last couple of days. Plan: Abx started 10/20/22 will continue for a seven day course total. (8) Shoulder injury Impression: stable Per spouse the plan is for shoulder joint replacement surgery once she recovers from this hospitalization. Plan: stable, no treatment Qualifiers: Encounter type: initial encounter Laterality: left Qualified Code(s): S49.92XA - Unspecified injury of left shoulder and upper arm, initial encounter (9) Lupus Plan: We are continuing her Plaquenil - Current Meds Current Meds: Current Medications Generic Name Dose Route Start Last Admin Trade Name Freq PRN Reason Stop Dose Admin Acetaminophen 1,000 mg 10/16/22 15:54 10/24/22 23:00 Acetaminophen 500 Mg Tablet PO 1,000 mg Q6H PRN Administration Mild Pain Or Fever>38c(100.4f) Bumetanide 2 mg 10/25/22 12:00 10/25/22 11:50 Bumetanide 1 Mg/4 Ml Vial IVP 2 mg DAILY BRITT Administration Carvedilol 25 mg 10/16/22 21:00 10/26/22 08:38 Carvedilol 12.5 Mg Tablet PO 25 mg BID BRITT Administration Ciprofloxacin 500 mg 10/23/22 21:00 10/26/22 08:38 Ciprofloxacin 250 Mg Tablet PO 500 mg BID BRITT Administration Guaifenesin 600 mg 10/21/22 21:00 10/26/22 08:38 Guaifenesin 600 Mg Tablet PO 600 mg BID BRITT Administration Hydralazine HCl 10 mg 10/19/22 22:56 10/21/22 08:30 Hydralazine Inj 20 Mg/Ml Vial IVP 10 mg Q6HR PRN Administration Hypertensive Emergency Hydroxychloroquine Sulfate 200 mg 10/20/22 09:00 10/26/22 08:39 Hydroxychloroquine 200 Mg Tablet PO 200 mg BID BRITT Administration Promethazine HCl 25 mg/ Sodium 51 mls @ 100 mls/hr 10/20/22 18:22 10/22/22 17:22 Chloride IV Infused Q6H PRN Infusion Nausea / Vomiting Lorazepam 2 mg 10/23/22 00:24 10/25/22 20:26 Lorazepam 1 Mg Tablet PO 2 mg HS PRN Administration Anxiety Metoprolol Tartrate 2.5 mg 10/21/22 00:44 10/21/22 08:26 Metoprolol 5 Mg/5 Ml Vial IVP 2.5 mg Q6H PRN Administration tachycardia HR>120 Nystatin 1 applic 10/20/22 21:00 10/26/22 08:39 Nystatin Powder 15 Gm TOP 1 applic BID BRITT Administration Ondansetron HCl 4 mg 10/16/22 15:54 10/23/22 17:36 Ondansetron 4 Mg/2 Ml Vial IVP 4 mg Q6HR PRN Administration Nausea / Vomiting Pantoprazole Sodium 40 mg 10/20/22 09:00 10/26/22 08:38 Pantoprazole 40 Mg Tablet PO 40 mg DAILY BRITT Administration Polyethylene Glycol 17 gm 10/23/22 12:00 10/26/22 08:39 Polyethylene Glycol 3350 17 Gm Packet PO Not Given DAILY BRITT Promethazine HCl 25 mg 10/20/22 18:22 10/21/22 20:19 Promethazine 25 Mg Tablet PO 25 mg Q6HR PRN Administration Nausea / Vomiting Sertraline HCl 100 mg 10/17/22 09:00 10/26/22 08:39 Sertraline 50 Mg Tablet PO 100 mg DAILY BRITT Administration Sodium Chloride 10 ml 10/19/22 22:24 10/25/22 10:54 Sodium Chloride Flush 0.9% 10 Ml Syringe IVP 10 ml PRN PRN Administration NEEDED PER PROVIDER ORDERS Sodium Chloride 10 ml 10/20/22 01:00 10/26/22 08:39 Sodium Chloride Flush 0.9% 10 Ml Syringe IVP 10 ml 0100,0900,1700 BRITT Administration Sodium Chloride 20 ml 10/23/22 01:33 10/26/22 00:16 Sodium Chloride Flush 0.9% 10 Ml Syringe IVP 20 ml PRN PRN Administration After Blood Draw - Lab Result Fish Bone Diagrams: 10/26/22 05:50 10/26/22 05:50 - Additional Planning My Orders: My Active Orders 10/26/22 RBC, LEUKOREDUCED Stat TYPE AND SCREEN Stat 10/26/22 09:10 Transfuse RBCs Leukoreduced [RC] .ONCE 10/26/22 14:00 FUROSEMIDE INJ 20mg VIAL [LASIX INJ 20mg VIAL] 20 mg IVP ONCE Subjective - Subjective Patient Reports: Shortness of Breath (She is visibly tachypneic when she is speaking to me. Wearing O2 per N. C.. There is no I-S in her room. She says she tries to cough something up but then cannot expectorate it) Objective Vital Signs: Vital Signs - 24 hr 10/25/22 10/25/22 10/25/22 10:50 11:45 15:45 Temperature Heart Rate [ 93 Brachial] Respiratory Rate Blood Pressure 113/69 [Left] Blood Pressure [Right Brachial artery] O2 Saturation 94 84 L If not protocol : Oxygen Flow, liters/minute 10/25/22 10/25/22 10/25/22 15:47 19:20 20:25 Temperature 37.1 C 37.0 C Heart Rate [ 107 H 116 H Brachial] Respiratory 24 20 Rate Blood Pressure [Left] Blood Pressure 124/70 129/88 H [Right Brachial artery] O2 Saturation 95 93 If not protocol 3 2 2 : Oxygen Flow, liters/minute 10/26/22 10/26/22 00:42 08:15 Temperature 37.3 C 37.0 C Heart Rate [ 78 96 Brachial] Respiratory 20 20 Rate Blood Pressure [Left] Blood Pressure 124/72 136/81 H [Right Brachial artery] O2 Saturation 94 94 If not protocol 2 2 : Oxygen Flow, liters/minute Oxygen O2 Source Nasal cannula Oxygen Flow Rate 2 I&O (Last 24 Hrs): Intake and Output Totals x24h 10/24/22 10/25/22 10/26/22 23:59 23:59 23:59 Intake Total 1450 1050 Output Total 300 750 375 Balance 1150 300 -375 General: Alert, Oriented x3 HEENT: Mucous membr. moist/pink, Other (wearing O2 per n.c.) Neck: Supple, No JVD Neuro: Alert, Non Focal Cardiovascular: No murmurs Respiratory: Breath sounds nml, Other (Mild resp distress at rest) Abdomen: Normal bowel sounds, Soft Extremities: Other (1+ ankle edema) - Results Results: Laboratory Results WBC 10.3 x10^3/uL (4.8-10.8) 10/26/22 05:50 RBC 2.54 10^6/uL (4.20-5.40) L 10/26/22 05:50 Hgb 6.9 g/dL (12.0-16.0) L* 10/26/22 05:50 Hct 22.4 % (37.0-47.0) L 10/26/22 05:50 MCV 88.2 fL (81.0-99.0) 10/26/22 05:50 MCH 27.2 pg (27.0-31.0) 10/26/22 05:50 MCHC 30.8 g/dL (32.0-36.0) L 10/26/22 05:50 RDW 16.9 % (12.0-15.0) H 10/26/22 05:50 Plt Count 230 10^3/uL (130-450) 10/26/22 05:50 MPV 10.8 fL (7.9-10.8) 10/26/22 05:50 Neut # (Auto) Not Reportable 10/26/22 05:50 Lymph # (Auto) Not Reportable 10/26/22 05:50 [place] # (Auto) Not Reportable 10/26/22 05:50 Eos # (Auto) Not Reportable 10/26/22 05:50 Baso # (Auto) Not Reportable 10/26/22 05:50 Absolute Nucleated RBC Not Reportable 10/26/22 05:50 Total Counted 100 10/26/22 05:50 Band Neuts % (Manual) 0 % (0-10) 10/26/22 05:50 Abnorm Lymph % (Manual) 1 % 10/26/22 05:50 Metamyelocytes % 1 % (-0) H 10/26/22 05:50 Myelocytes % 3 % (-0) H 10/26/22 05:50 Nucleated RBC % Not Reportable 10/26/22 05:50 Neutrophils # (Manual) 8.3 10^3/uL (1.5-6.6) H 10/26/22 05:50 Lymphocytes # (Manual) 1.0 10^3/uL (1.5-3.5) L 10/26/22 05:50 Monocytes # (Manual) 0.2 10^3/uL (0.0-1.0) 10/26/22 05:50 Eosinophils # (Manual) 0.3 10^3/uL (0-0.7) 10/26/22 05:50 Basophils # (Manual) 0.0 10^3/uL (0-0.1) 10/26/22 05:50 Differential Comment MANUAL DIFFERENTIAL 10/26/22 05:50 WBC Morphology NORMAL APPEARANCE (NORMAL) 10/26/22 05:50 Platelet Estimate NORMAL (130-450,000) (NORMAL) 10/26/22 05:50 Platelet Morphology NORMAL APPEARANCE (NORMAL) 10/26/22 05:50 RBC Morph Micro Appear 2+ HYPOCHROMASIA (NORMAL) 1+ STOMATOCYTES (NORMAL) 10/26/22 05:50 RBC Morph Micro Appear 2+ HYPOCHROMASIA (NORMAL) 1+ STOMATOCYTES (NORMAL) 10/26/22 05:50 ESR 24 mm/Hr (0-30) 10/20/22 08:06 PT 18.7 secs (9.9-12.6) H 10/16/22 15:56 INR 1.7 (0.8-1.2) H 10/16/22 15:56 VBG pH 7.406 (7.31-7.41) 10/25/22 05:40 VBG pCO2 37.4 mmHg (41-51) L 10/19/22 05:59 VBG pO2 92.0 mmHg (25-47) H 10/19/22 05:59 VBG HCO3 28.3 mmol/L (23-28) H 10/19/22 05:59 VBG Total CO2 29.5 mmol/L (24-29) H 10/19/22 05:59 VBG O2 Saturation 97.5 % (60-80) H 10/19/22 05:59 VBG Base Excess 4.9 mmol/L (-2 - +2) H 10/19/22 05:59 Ionized Calcium 1.16 mmol/L (1.15-1.33) 10/25/22 05:40 Sodium 131 mmol/L (135-145) L 10/26/22 05:50 Potassium 2.9 mmol/L (3.5-5.0) L 10/26/22 05:50 Chloride 95 mmol/L (101-111) L 10/26/22 05:50 Carbon Dioxide 26 mmol/L (21-32) 10/26/22 05:50 Anion Gap 10.0 (6-13) 10/26/22 05:50 BUN 20 mg/dL (6-20) 10/26/22 05:50 Creatinine 0.8 mg/dL (0.4-1.0) 10/26/22 05:50 Estimated GFR (MDRD) 70 (>89) L 10/26/22 05:50 Glucose 100 mg/dL (70-100) 10/26/22 05:50 Lactic Acid 1.2 mmol/L (0.5-2.2) 10/20/22 06:20 Calcium 7.9 mg/dL (8.5-10.3) L 10/26/22 05:50 Phosphorus 3.0 mg/dL (2.5-4.6) 10/23/22 05:22 Magnesium 1.9 mg/dL (1.7-2.8) 10/23/22 09:55 Total Bilirubin 1.2 mg/dL (0.2-1.0) H 10/23/22 05:22 AST 42 IU/L (10-42) 10/23/22 05:22 ALT 34 IU/L (10-60) 10/23/22 05:22 Alkaline Phosphatase 85 IU/L (42-121) 10/23/22 05:22 Troponin I High Sens 75.6 ng/L (2.3-14.8) H* 10/20/22 08:06 C-Reactive Protein 18.0 mg/dL (0-1.0) H 10/20/22 08:06 B-Natriuretic Peptide 917 pg/mL (5-100) H 10/19/22 05:59 Total Protein 4.6 g/dL (6.7-8.2) L 10/23/22 05:22 Albumin 2.2 g/dL (3.2-5.5) L 10/23/22 05:22 Globulin 2.4 g/dL (2.1-4.2) 10/23/22 05:22 Albumin/Globulin Ratio 0.9 (1.0-2.2) L 10/23/22 05:22 Lipase 33 U/L (22-51) 10/16/22 03:57 Nasal Adenovirus (PCR) NOT DETECTED 10/19/22 04:40 Nasal B. parapertussis DNA (PCR) NOT DETECTED 10/19/22 04:40 Nasal Coronavir 229E PCR NOT DETECTED 10/19/22 04:40 Nasal Coronavir HKU1 PCR NOT DETECTED 10/19/22 04:40 Nasal Coronavir NL63 PCR NOT DETECTED 10/19/22 04:40 Nasal Coronavir OC43 PCR NOT DETECTED 10/19/22 04:40 Nasal Enterovir/Rhinovir PCR NOT DETECTED 10/19/22 04:40 Nasal Influenza B PCR NOT DETECTED 10/19/22 04:40 Nasal Influenza A PCR NOT DETECTED 10/19/22 04:40 Nasal Parainfluen 1 PCR NOT DETECTED 10/19/22 04:40 Nasal Parainfluen 2 PCR NOT DETECTED 10/19/22 04:40 Nasal Parainfluen 3 PCR NOT DETECTED 10/19/22 04:40 Nasal Parainfluen 4 PCR NOT DETECTED 10/19/22 04:40 Nasal RSV (PCR) NOT DETECTED 10/19/22 04:40 Nasal Screen MRSA (PCR) NEGATIVE (NEGATIVE) 10/20/22 13:13 Nasal B.pertussis DNA PCR NOT DETECTED 10/19/22 04:40 Nasal C.pneumoniae (PCR) NOT DETECTED 10/19/22 04:40 Matthieu Human Metapneumo PCR NOT DETECTED 10/19/22 04:40 Nasal M.pneumoniae (PCR) NOT DETECTED 10/19/22 04:40 Nasal SARS-CoV-2 (PCR) NOT DETECTED 10/19/22 04:40 Last Dose Date 10/20/22 10/23/22 09:55 Last Dose Time 204910/23/22 09:55 Vancomycin Trough 3.9 ug/mL (10.0-20.0) L 10/23/22 09:55 SARS-CoV-2 (PCR) NOT DETECTED 10/16/22 17:33 Blood Type O POSITIVE 10/16/22 04:42 Blood Type Recheck O POSITIVE 10/16/22 04:10 Antibody Screen NEGATIVE 10/16/22 04:42 Crossmatch IS Only See Detail 10/16/22 04:42 Sepsis Event Note (H) - Evaluation Current Stage of Sepsis: Sepsis (Continues to require norepinephrine for to keep MAP>65) - Sepsis Criteria Sepsis Criteria: Recorded Temperature greater than 38.3C or Less than 36C, Recorded Heart Rate greater than 90 bpm, SBP less than 90 mmHg
[2022-10-26] MEDS: BUMETANIDE 1 MG/4 ML VIAL IVP SCH (10:01)
[2022-10-26] MEDS ORDERED: POTASSIUM CHLORIDE 10 MEQ CAPSULE PO ONE (11:00)
[2022-10-26] MEDS: POTASSIUM CHLOR 10 MEQ/100 ML 10 MEQ/100 ML BAG IV SCH ×3 (11:14→15:26)
[2022-10-26] MEDS ORDERED: FUROSEMIDE 20 MG/2 ML VIAL IVP SCH (14:00)
[2022-10-26] MEDS: ACETAMINOPHEN 500 MG TABLET PO PRN (18:27)
[2022-10-26] MEDS: LORazepam 1 MG TABLET PO PRN (20:15)
[2022-10-26] MEDS: ATORVASTATIN 10 MG TABLET PO SCH (20:15)
--- NOTE | 2022-10-26 20:16 | XRAY Report ---
PROCEDURE: Chest 1 View X-Ray INDICATIONS: Cough, hypoxia, SOB, fever TECHNIQUE: One view of the chest was acquired. COMPARISON: CT pulmonary angiogram 10/25/2022. CXR 10/24/2022. FINDINGS: Surgical changes and devices: Right IJ central venous line with the catheter tip at the right atrium . Left axilla clips. Right shoulder arthroplasty. Lungs and pleura: No pleural effusions or pneumothorax. Bilateral patchy airspace opacity. Mediastinum: Mediastinal contours appear unchanged. Heart size is normal. Bones and chest wall: No suspicious bony lesions. Overlying soft tissues appear unremarkable. IMPRESSION: Bilateral patchy airspace opacity is stable to slightly improved. Reviewed by: Gurmeet Hayes MD on 10/26/2022 8:14 PM PST Approved by: Gurmeet Hayes MD on 10/26/2022 8:14 PM [facility] Station ID: [id number]
[2022-10-27] MEDS: SODIUM CHLORIDE FLUSH 0.9% 10 ML SYRINGE IVP SCH ×4 (01:00→23:39)
[2022-10-27 06:10] LABS: HGB - HEMOGLOBIN 7.3 g/dL (12.0-16.0); MEAN CORPUSCULAR HEMOGLOBIN 26.7 pg (27.0-31.0); MEAN CORPUSCULAR HGB CONC 30.4 g/dL (32.0-36.0); MEAN CORPUSCULAR VOLUME 87.9 fL (81.0-99.0); MEAN PLATELET VOLUME 10.5 fL (7.9-10.8); NEUTROPHILS % (AUTO) 80.7 %; PLT - PLATELET COUNT 233 10^3/uL (130-450); RED BLOOD COUNT 2.73 10^6/uL (4.20-5.40); RED CELL DISTRIBUTION WIDTH 16.8 % (12.0-15.0); WHITE BLOOD COUNT 10.6 x10^3/uL (4.8-10.8)
[2022-10-27 06:11] LABS: BASOPHILS % (AUTO) 0.2 %; EOSINOPHILS # (AUTO) 0.2 10^3/uL (0.0-0.7); EOSINOPHILS % (AUTO) 2.3 %; LYMPHOCYTES # (AUTO) 0.9 10^3/uL (1.5-3.5); LYMPHOCYTES % (AUTO) 8.6 %; MONOCYTES # (AUTO) 0.5 10^3/uL (0.0-1.0); MONOCYTES % (AUTO) 4.3 %; NEUTROPHILS # (AUTO) 8.5 10^3/uL (1.5-6.6)
[2022-10-27 06:20] LABS: CREATININE 0.7 mg/dL (0.4-1.0); POTASSIUM 3.2 mmol/L (3.5-5.0)
[2022-10-27] MEDS: IPRATROPIUM/ALBUTEROL 3 ML NEB INH PRN ×2 (07:50→19:45)
[2022-10-27] MEDS: ACETAMINOPHEN 500 MG TABLET PO PRN ×2 (09:34→18:51)
[2022-10-27] MEDS: carvediloL 12.5 MG TABLET PO SCH ×2 (09:53→21:12)
[2022-10-27] MEDS: PANTOPRAZOLE 40 MG TABLET PO SCH ×2 (09:53→21:13)
[2022-10-27] MEDS: BUMETANIDE 1 MG/4 ML VIAL IVP SCH (09:53)
[2022-10-27] MEDS: CIPROFLOXACIN 250 MG TABLET PO SCH ×2 (09:54→21:13)
[2022-10-27] MEDS: SERTRALINE 50 MG TABLET PO SCH (09:54)
[2022-10-27] MEDS: guaiFENesin 600 MG TABLET PO SCH ×2 (09:54→21:13)
[2022-10-27] MEDS: HYDROXYCHLOROQUINE 200 MG TABLET PO SCH ×2 (09:54→21:13)
[2022-10-27] MEDS: NYSTATIN POWDER 15 GM TOP SCH ×2 (09:55→21:13)
[2022-10-27] MEDS: polyethylene glycoL 3350 17 GM PACKET PO SCH (12:19)
[2022-10-27] MEDS ORDERED: AZITHROMYCIN 250 MG TABLET PO STA (14:12)
--- NOTE | 2022-10-27 14:30 | PROVIDER PROGRESS NOTE ---
Assessment/Plan - Problem List (1) Symptomatic anemia Assessment/Plan: Her hemoglobin dropped yesterday to 6.9, despite getting IV diuretics. We stopped her Eliquis yesterday, which had been resumed 4 days ago, when it was thought that she had stopped having a GI bleed. She got 1U of blood transfused yesterday, then Hgb krish to 8.3 last nite. Then again today her Hgb has dropped this a.m. to 7.5. Plan: Gen Surg consult for EGD and colonoscopy, I spoke to Dr Black Follow hemoglobin every 12 hours Target Hgb is 7.5 (2) Gastrointestinal bleed Impression: When she was in the ED she received transfusions, was seen by general surgeon Dr Elvis llamas and plan was for outpatient EGD. Her apixaban was resumed when the GI bleeding was felt to be stopped, due to her stable hemoglobins for several days (until yesterday 10/26). Hemoglobin dropped to 6.9 despite being on iv BID diuretic. We stopped her Eliquis yesterday, which was resumed when it was thought that she had stopped the GI bleed. After yesterday's transfusion and hemoglobin up to 8.3, the hemoglobin has again dropped to 7.5 this morning Plan: Gen Surg consult for EGD and colonoscopy, I spoke to Dr Black today We will start empiric Protonix 40 IV twice daily We will start clear liquid diet, she will need bowel prep tomorrow evening and the plan will be for scoping on Sunday 10/29. I explained all the above to the patient and her was on the phone at the time of my visit, and heard the plan Qualifiers: GI bleed type/associated pathology: unspecified gastrointestinal hemorrhage type Qualified Code(s): K92.2 - Gastrointestinal hemorrhage, unspecified (3) Acute respiratory failure with hypoxia Since developing CHF after blood transfusions were given, she has needed supplemental O2. There are continued "patchy bilateral infiltrate" seen on CT imaging and chest x-rays. It is unclear if this is all edema or if there is some inflammation or infection. Plan: Will continue with O2 supplemental to keep saturations greater than 90% Patient will need an oximetry walk test on the day of discharge to see if she needs home O2. Will continue to treat her volume overload and will empirically treat for atyp ical pneumonia starting today, using Zithromax po. I explained all this to the patient and her was on the phone at the time of my visit, and heard the plan, he asked questions and took notes. (4) Acute on chronic diastolic CHF (congestive heart failure) Impression: She has shortness of breath with activity, is on 2L of O2 NC. We think her SOB is related to heart failure and an atypical PNA. Pulmonary embolism was ruled out with a CTA of chest. That CT chest reported scattered opacities c/w infection, but she had no WBC elevation. Troponins were negative for acute GA earlier this hospitalization as well Echo was done several days ago that showed preserved LVEF of 60 to 65%. 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 Because of her worsened cough, another chest x-ray was done last night that continues to report bilateral patchy infiltrates Plan: continue diuresis. IS was re- ordered given the bilateral atelectasis reported on last last CT chest Will continue Mucinex. We will give a course of oral Zithromax, 500 mg today then 250 mg daily x4 days Qualifiers: Heart failure type: diastolic Heart failure chronicity: acute Qualified Code(s): I50.31 - Acute diastolic (congestive) heart failure (5) Abn CXR Because of her worsened cough and a fever last eveniing, another chest x-ray was done last night that continues to report bilateral patchy infiltrates. Plan: IS was re- ordered given the bilateral atelectasis reported on last CT chest Will continue Mucinex. We will give a course of oral Zithromax, 500 mg today then 250 mg daily x4 days. I discussed this plan with pt and today. He asked questions and took notes and appreciated the thorough explanation. (6) Afib Impression: Currently rate is well controlled. [id number] score 5 and she was opn Xarelto at home, then on Eliquid here. We stopped her anticoagulant yesterday, when Hgb dropped to 6.9, suggesting bleeding again occurring. Plan: Continue coreg for rate control. Remain off DOAC for at least 1 month if a GI bleed is found. I explained this to the patient today, and was on the phone at the time Qualifiers: Atrial fibrillation type: longstanding persistent Qualified Code(s): I48.11 - Longstanding persistent atrial fibrillation (7) Hyponatremia Impression: This has recurred and Na 130 This may be due to loop diuretic use and/or free water excess since she has not been in negative fluid balance despite getting loop diuretics. Plan:Continue free water restriction of 1000 cc total per day, ordered this on 10/26 (8) Hypokalemia This is related to IV diuretic use most likely Plan: Potassium replacement Follow BMP daily We will also check her serum magnesium and correct if low (8) Septic shock Impression: Resolved. UTI caused septic shock. Vital signs stable, no temperature in last couple of days. Plan: Abx started 10/20/22 will continue for a seven day course total, ending today. (9) Shoulder injury Impression: stable Per spouse the plan is for shoulder joint replacement surgery once she recovers from this hospitalization. Plan: stable, no treatment Qualifiers: Encounter type: initial encounter Laterality: left Qualified Code(s): S49.92XA - Unspecified injury of left shoulder and upper arm, initial encounter (10) Lupus Plan: We are continuing her Plaquenil - Current Meds Current Meds: Current Medications Generic Name Dose Route Start Last Admin Trade Name Freq PRN Reason Stop Dose Admin Acetaminophen 1,000 mg 10/16/22 15:54 10/27/22 09:34 Acetaminophen 500 Mg Tablet PO 1,000 mg Q6H PRN Administration Mild Pain Or Fever>38c(100.4f) Albuterol/Ipratropium 3 ml 10/19/22 22:20 10/27/22 07:50 Ipratropium/Albuterol 3 Ml Neb INH 3 ml Q4HR PRN Administration Shortness of Air/Wheezing Atorvastatin Calcium 10 mg 10/26/22 21:00 10/26/22 20:15 Atorvastatin 10 Mg Tablet PO 10 mg HS BRITT Administration Bumetanide 2 mg 10/25/22 12:00 10/27/22 09:53 Bumetanide 1 Mg/4 Ml Vial IVP 2 mg DAILY BRITT Administration Carvedilol 25 mg 10/16/22 21:00 10/27/22 09:53 Carvedilol 12.5 Mg Tablet PO 25 mg BID BRITT Administration Ciprofloxacin 500 mg 10/23/22 21:00 10/27/22 09:54 Ciprofloxacin 250 Mg Tablet PO 500 mg BID BRITT Administration Guaifenesin 600 mg 10/26/22 21:00 10/27/22 09:54 Guaifenesin 600 Mg Tablet PO 600 mg BID BRITT Administration Hydralazine HCl 10 mg 10/19/22 22:56 10/21/22 08:30 Hydralazine Inj 20 Mg/Ml Vial IVP 10 mg Q6HR PRN Administration Hypertensive Emergency Hydroxychloroquine Sulfate 200 mg 10/20/22 09:00 10/27/22 09:54 Hydroxychloroquine 200 Mg Tablet PO 200 mg BID BRITT Administration Promethazine HCl 25 mg/ Sodium 51 mls @ 100 mls/hr 10/20/22 18:22 10/22/22 17:22 Chloride IV Infused Q6H PRN Infusion Nausea / Vomiting Lorazepam 2 mg 10/23/22 00:24 10/26/22 20:15 Lorazepam 1 Mg Tablet PO 2 mg HS PRN Administration Anxiety Nystatin 1 applic 10/20/22 21:00 10/27/22 09:55 Nystatin Powder 15 Gm TOP 1 applic BID BRITT Administration Ondansetron HCl 4 mg 10/16/22 15:54 10/23/22 17:36 Ondansetron 4 Mg/2 Ml Vial IVP 4 mg Q6HR PRN Administration Nausea / Vomiting Pantoprazole Sodium 40 mg 10/20/22 09:00 10/27/22 09:53 Pantoprazole 40 Mg Tablet PO 40 mg DAILY BRITT Administration Polyethylene Glycol 17 gm 10/23/22 12:00 10/27/22 12:19 Polyethylene Glycol 3350 17 Gm Packet PO Not Given DAILY BRITT Promethazine HCl 25 mg 10/20/22 18:22 10/21/22 20:19 Promethazine 25 Mg Tablet PO 25 mg Q6HR PRN Administration Nausea / Vomiting Sertraline HCl 100 mg 10/17/22 09:00 10/27/22 09:54 Sertraline 50 Mg Tablet PO 100 mg DAILY BRITT Administration Sodium Chloride 10 ml 10/19/22 22:24 10/25/22 10:54 Sodium Chloride Flush 0.9% 10 Ml Syringe IVP 10 ml PRN PRN Administration NEEDED PER PROVIDER ORDERS Sodium Chloride 10 ml 10/20/22 01:00 10/27/22 09:55 Sodium Chloride Flush 0.9% 10 Ml Syringe IVP 10 ml 0100,0900,1700 BRITT Administration Sodium Chloride 20 ml 10/23/22 01:33 10/26/22 14:34 Sodium Chloride Flush 0.9% 10 Ml Syringe IVP 20 ml PRN PRN Administration After Blood Draw - Lab Result Fish Bone Diagrams: 10/27/22 05:47 10/27/22 05:47 - Additional Planning My Orders: My Active Orders 10/26/22 21:00 Atorvastatin [Lipitor] 10 mg PO HS guaiFENesin [Mucinex] 600 mg PO BID 10/27/22 Consult [General Surgery Consult] [CONS] Routine 10/27/22 07:52 RT [Nebulizer/MDI Tx.] [RC] QID 10/27/22 Dinner Clear Liquid Diet [DIET] 10/28/22 05:00 MAGNESIUM [CHEM] DAILYLAB 10/28/22 09:00 Azithromycin [Zithromax] 250 mg PO DAILY Subjective - Subjective Patient Reports: Shortness of Breath (Slightly better, not as short of breath with speaking, is wearing O2, got dyspneic easily with walking with PT) Objective Vital Signs: Vital Signs - 24 hr 10/26/22 10/26/22 10/26/22 14:28 16:36 18:28 Temperature 36.7 C 37.6 C 37.9 C Heart Rate Heart Rate [ 94 95 Brachial] Respiratory 20 20 Rate Blood Pressure 116/65 116/67 [Right Brachial artery] O2 Saturation 94 94 If not protocol 2 2 : Oxygen Flow, liters/minute 10/26/22 10/27/22 10/27/22 20:00 02:15 07:38 Temperature 36.6 C 36.7 C Heart Rate Heart Rate [ 92 84 Brachial] Respiratory 19 20 Rate Blood Pressure 129/78 114/78 [Right Brachial artery] O2 Saturation 95 93 If not protocol 2 2 2 : Oxygen Flow, liters/minute 10/27/22 10/27/22 07:51 07:52 Temperature Heart Rate 88 Heart Rate [ Brachial] Respiratory 24 Rate Blood Pressure [Right Brachial artery] O2 Saturation If not protocol 2 : Oxygen Flow, liters/minute Oxygen O2 Source Nasal cannula Oxygen Flow Rate 2 I&O (Last 24 Hrs): Intake and Output Totals x24h 10/25/22 10/26/22 10/27/22 23:59 23:59 23:59 Intake Total 1050 1595 610 Output Total 750 975 500 Balance 300 620 110 General: Alert, Oriented x3 HEENT: Mucous membr. moist/pink Neck: Supple, No thyromegaly Neuro: Alert, Non Focal Cardiovascular: No murmurs Respiratory: Rales (L base) Abdomen: Normal bowel sounds, Soft, No tenderness Extremities: Other (1+ edema to above ankles) - Results Results: Laboratory Results WBC 10.6 x10^3/uL (4.8-10.8) 10/27/22 05:47 RBC 2.73 10^6/uL (4.20-5.40) L 10/27/22 05:47 Hgb 7.3 g/dL (12.0-16.0) L 10/27/22 05:47 Hct 24.0 % (37.0-47.0) L 10/27/22 05:47 MCV 87.9 fL (81.0-99.0) 10/27/22 05:47 MCH 26.7 pg (27.0-31.0) L 10/27/22 05:47 MCHC 30.4 g/dL (32.0-36.0) L 10/27/22 05:47 RDW 16.8 % (12.0-15.0) H 10/27/22 05:47 Plt Count 233 10^3/uL (130-450) 10/27/22 05:47 MPV 10.5 fL (7.9-10.8) 10/27/22 05:47 Neut # (Auto) 8.5 10^3/uL (1.5-6.6) H 10/27/22 05:47 Lymph # (Auto) 0.9 10^3/uL (1.5-3.5) L 10/27/22 05:47 Cole # (Auto) 0.5 10^3/uL (0.0-1.0) 10/27/22 05:47 Eos # (Auto) 0.2 10^3/uL (0.0-0.7) 10/27/22 05:47 Baso # (Auto) 0.0 10^3/uL (0.0-0.1) 10/27/22 05:47 Absolute Nucleated RBC 0.00 x10^3/uL 10/27/22 05:47 Total Counted 100 10/26/22 05:50 Band Neuts % (Manual) 0 % (0-10) 10/26/22 05:50 Abnorm Lymph % (Manual) 1 % 10/26/22 05:50 Metamyelocytes % 1 % (-0) H 10/26/22 05:50 Myelocytes % 3 % (-0) H 10/26/22 05:50 Nucleated RBC % 0.0 /100WBC 10/27/22 05:47 Neutrophils # (Manual) 8.3 10^3/uL (1.5-6.6) H 10/26/22 05:50 Lymphocytes # (Manual) 1.0 10^3/uL (1.5-3.5) L 10/26/22 05:50 Monocytes # (Manual) 0.2 10^3/uL (0.0-1.0) 10/26/22 05:50 Eosinophils # (Manual) 0.3 10^3/uL (0-0.7) 10/26/22 05:50 Basophils # (Manual) 0.0 10^3/uL (0-0.1) 10/26/22 05:50 Differential Comment MANUAL DIFFERENTIAL 10/26/22 05:50 WBC Morphology NORMAL APPEARANCE (NORMAL) 10/26/22 05:50 Platelet Estimate NORMAL (130-450,000) (NORMAL) 10/26/22 05:50 Platelet Morphology NORMAL APPEARANCE (NORMAL) 10/26/22 05:50 RBC Morph Micro Appear 2+ HYPOCHROMASIA (NORMAL) 1+ STOMATOCYTES (NORMAL) 10/26/22 05:50 RBC Morph Micro Appear 2+ HYPOCHROMASIA (NORMAL) 1+ STOMATOCYTES (NORMAL) 10/26/22 05:50 ESR 24 mm/Hr (0-30) 10/20/22 08:06 PT 18.7 secs (9.9-12.6) H 10/16/22 15:56 INR 1.7 (0.8-1.2) H 10/16/22 15:56 VBG pH 7.406 (7.31-7.41) 10/25/22 05:40 VBG pCO2 37.4 mmHg (41-51) L 10/19/22 05:59 VBG pO2 92.0 mmHg (25-47) H 10/19/22 05:59 VBG HCO3 28.3 mmol/L (23-28) H 10/19/22 05:59 VBG Total CO2 29.5 mmol/L (24-29) H 10/19/22 05:59 VBG O2 Saturation 97.5 % (60-80) H 10/19/22 05:59 VBG Base Excess 4.9 mmol/L (-2 - +2) H 10/19/22 05:59 Ionized Calcium 1.16 mmol/L (1.15-1.33) 10/25/22 05:40 Sodium 133 mmol/L (135-145) L 10/27/22 05:47 Potassium 3.2 mmol/L (3.5-5.0) L 10/27/22 05:47 Chloride 97 mmol/L (101-111) L 10/27/22 05:47 Carbon Dioxide 30 mmol/L (21-32) 10/27/22 05:47 Anion Gap 6.0 (6-13) 10/27/22 05:47 BUN 20 mg/dL (6-20) 10/27/22 05:47 Creatinine 0.7 mg/dL (0.4-1.0) 10/27/22 05:47 Estimated GFR (MDRD) 81 (>89) L 10/27/22 05:47 Glucose 104 mg/dL (70-100) H 10/27/22 05:47 Lactic Acid 1.2 mmol/L (0.5-2.2) 10/20/22 06:20 Calcium 8.0 mg/dL (8.5-10.3) L 10/27/22 05:47 Phosphorus 3.0 mg/dL (2.5-4.6) 10/23/22 05:22 Magnesium 1.9 mg/dL (1.7-2.8) 10/23/22 09:55 Total Bilirubin 1.2 mg/dL (0.2-1.0) H 10/23/22 05:22 AST 42 IU/L (10-42) 10/23/22 05:22 ALT 34 IU/L (10-60) 10/23/22 05:22 Alkaline Phosphatase 85 IU/L (42-121) 10/23/22 05:22 Troponin I High Sens 75.6 ng/L (2.3-14.8) H* 10/20/22 08:06 C-Reactive Protein 18.0 mg/dL (0-1.0) H 10/20/22 08:06 B-Natriuretic Peptide 917 pg/mL (5-100) H 10/19/22 05:59 Total Protein 4.6 g/dL (6.7-8.2) L 10/23/22 05:22 Albumin 2.2 g/dL (3.2-5.5) L 10/23/22 05:22 Globulin 2.4 g/dL (2.1-4.2) 10/23/22 05:22 Albumin/Globulin Ratio 0.9 (1.0-2.2) L 10/23/22 05:22 Lipase 33 U/L (22-51) 10/16/22 03:57 Nasal Adenovirus (PCR) NOT DETECTED 10/19/22 04:40 Nasal B. parapertussis DNA (PCR) NOT DETECTED 10/19/22 04:40 Nasal Coronavir 229E PCR NOT DETECTED 10/19/22 04:40 Nasal Coronavir HKU1 PCR NOT DETECTED 10/19/22 04:40 Nasal Coronavir NL63 PCR NOT DETECTED 10/19/22 04:40 Nasal Coronavir OC43 PCR NOT DETECTED 10/19/22 04:40 Nasal Enterovir/Rhinovir PCR NOT DETECTED 10/19/22 04:40 Nasal Influenza B PCR NOT DETECTED 10/19/22 04:40 Nasal Influenza A PCR NOT DETECTED 10/19/22 04:40 Nasal Parainfluen 1 PCR NOT DETECTED 10/19/22 04:40 Nasal Parainfluen 2 PCR NOT DETECTED 10/19/22 04:40 Nasal Parainfluen 3 PCR NOT DETECTED 10/19/22 04:40 Nasal Parainfluen 4 PCR NOT DETECTED 10/19/22 04:40 Nasal RSV (PCR) NOT DETECTED 10/19/22 04:40 Nasal Screen MRSA (PCR) NEGATIVE (NEGATIVE) 10/20/22 13:13 Nasal B.pertussis DNA PCR NOT DETECTED 10/19/22 04:40 Nasal C.pneumoniae (PCR) NOT DETECTED 10/19/22 04:40 Matthieu Human Metapneumo PCR NOT DETECTED 10/19/22 04:40 Nasal M.pneumoniae (PCR) NOT DETECTED 10/19/22 04:40 Nasal SARS-CoV-2 (PCR) NOT DETECTED 10/19/22 04:40 Last Dose Date 10/20/22 10/23/22 09:55 Last Dose Time 204910/23/22 09:55 Vancomycin Trough 3.9 ug/mL (10.0-20.0) L 10/23/22 09:55 SARS-CoV-2 (PCR) NOT DETECTED 10/16/22 17:33 Blood Type O POSITIVE 10/26/22 09:25 Blood Type Recheck O POSITIVE 10/16/22 04:10 Antibody Screen NEGATIVE 10/26/22 09:25 Crossmatch IS Only See Detail 10/26/22 09:25 Sepsis Event Note (H) - Evaluation Current Stage of Sepsis: Sepsis (Continues to require norepinephrine for to keep MAP>65) - Sepsis Criteria Sepsis Criteria: Recorded Temperature greater than 38.3C or Less than 36C, R ecorded Heart Rate greater than 90 bpm, SBP less than 90 mmHg
[2022-10-27] MEDS: POTASSIUM CHLORIDE 10 MEQ CAPSULE PO SCH (16:40)
--- NOTE | 2022-10-27 18:18 | CONSULTATION NOTE ---
Referring Provider Name of Referring Provider:: Medicine Consult Date: 10/27/22 Chief Complaint - Chief Complaint Chief Complaint: "I've got all kinds of problems" History of Present Illness - Admitted From Admitted From:: ED - History Obtained From Records Reviewed: yes History obtained from: patient, spouse, records, primary team Exam Limitations: patient hard of hearing - History of Present Illness HPI Comment/Other: 76 y/o F, admitted from the ED after presenting with progressively worsening shortness of breath. Prior to admission, the patient was noted to be taking Xarelto, aspirin, and Excedrin. She has a chronic history of GERD and takes Nexium. She denies any recent abdominal pain, hematemesis, unintentional weight loss, constipation, or diarrhea. The patient does report having dark stools for several days in the weeks leading up to her admission. In the emergency department, she was found to be very anemic with a hemoglobin around 5, and was subsequently transfused. For the next several days her hemoglobin was stable. Her blood thinner was restarted 2 days ago, and yesterday she had a decrease in hemoglobin again. She was again transfused, and the blood thinner stopped. At the time of my exam, the patient complains of lef t shoulder pain, a headache, and is embarrassed that she had a messy BM earlier today, but otherwise denies any gastrointestinal or abdominal complaints. She has been struggling with worsening edema since her admission. Notably, the patient has a past surgical history of partial colectomy for diverticulitis and subsequent colostomy takedown. Her last colonoscopy was 7 years ago and was otherwise normal. 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, lymphedema left arm (wears sleeve), tremors to right hand at times; RHP - Past Surgical History General: reports: Bowel surgery, Colonoscopy, Other Ortho: reports: Hip replacement, Knee replacement, Shoulder arthroplasty HEENT: reports: Cataracts - Family & Social History Family History Comment/Other: No trend reported in the family Social History Notes: Non smoker - POLST Patient has POLST: No POLST Status: Full Code Meds/Allgy - Home Medications Home Medications: Ambulatory Orders Medication Instructions Recorded Confirmed Candesartan Cilexetil 1 tab PO DAILY 04/10/17 10/17/22 Hydroxychloroquine [Plaquenil] 200 mg PO BID 04/10/17 10/17/22 Omeprazole [PriLOSEC] 1 tab PO DAILY 04/10/17 10/17/22 Potassium Chloride 2.5 tab PO DAILY 04/10/17 10/17/22 Sertraline [Zoloft] 100 mg PO DAILY 04/10/17 10/17/22 carvediloL [Carvedilol] 25 mg PO BID 04/10/17 10/20/22 Furosemide [Lasix] 20 mg PO DAILY #14 tablet 08/14/22 10/17/22 Rivaroxaban [Xarelto] 20 mg PO DAILY #30 tablet 08/14/22 10/17/22 HYDROmorphone [Dilaudid] 1 - 2 tab PO Q4H PRN #25 tablet 08/15/22 10/17/22 Acetaminophen [Tylenol] 1 tab PO BID PRN 10/20/22 10/20/22 Atorvastatin [Lipitor] 1 tab PO HS 10/20/22 10/20/22 Bifidobacterium Infantis [Align] 1 tab PO DAILY 10/20/22 10/20/22 Calcium Carbonate [Tums (Calcium 2 tab PO DAILY PRN 10/20/22 10/20/22 Carbonate 500mg)] Cholecalciferol [Vitamin D3] 1 cap PO DAILY 10/20/22 10/20/22 LORazepam [Lorazepam] 1 tab PO HS PRN 10/20/22 10/20/22 Magnesium Hydroxide [Milk of 10 ml PO DAILY PRN 10/20/22 10/20/22 Magnesia] Multivitamin [Theragran] 1 tab PO DAILY 10/20/22 10/20/22 Naloxone HCl Nasal [Narcan Nasal] 1 spray HELIO PRN PRN 10/20/22 10/20/22 Ondansetron Odt [Zofran Odt] 1 tab PO BID PRN 10/20/22 10/20/22 Vitamin B Complex 1 tab PO DAILY 10/20/22 10/20/22 polyethylene glycoL 3350 1 packet PO DAILY PRN 10/20/22 10/20/22 [Polyethylene Glycol 3350] - Allergies Allergies/Adverse Reactions: Allergies Allergy/AdvReac Type Severity Reaction Status Date / Time prochlorperazine edisylate * Allergy Severe Unknown Verified 10/22/22 16:01 [From Compazine] prochlorperazine Allergy Unknown Verified 10/16/22 04:07 [From Compazine] prochlorperazine maleate * Allergy Unknown Verified 10/16/22 04:07 [From Compazine] codeine AdvReac Severe Emesis Verified 10/22/22 16:05 hydrocodone AdvReac Nausea Verified 10/22/22 16:30 monosodium glutamate AdvReac Emesis Verified 10/23/22 11:38 oxycodone AdvReac Emesis Verified 10/22/22 15:59 Review of Systems - Constitutional Constitutional: reports: Other (A complete 10 point review of symptoms is otherwise negative except for that noted in HPI and PMH.) Exam - Vital Signs Reviewed Vital Signs: Yes Vital Signs: Vital Signs x48h Temp Pulse Resp BP Pulse Ox O2 Flow Rate 10/27/22 15:45 36.7 C 96 16 103/64 97 2 - Physical Exam General Appearance: positive: No acute distress, Alert Eyes Bilateral: positive: Normal inspection, PERRL, EOMI ENT: positive: No signs of dehydration, Other (Nasal cannula in place, 2 L) Neck: positive: Trachea midline Respiratory: positive: Chest non-tender, No respiratory distress, Other (Decreased breath sounds in bilateral bases) Cardiovascular: positive: No murmur, Irregularly irregular Peripheral Pulses: positive: 1+ Abdomen: positive: Non-tender, No distention. negative: Guarding, Rebound Back: positive: Nml inspection Skin: positive: Color nml Extremities: positive: Pedal edema (2, B), Other (Left upper extremity in compression stocking and brace) Neurologic/Psychiatric: positive: Oriented x3 Conclusion and Plan - Lab Results Laboratory Results 10/27/22 17:04: Hgb 7.9 L 10/27/22 05:47: Sodium 133 L, Potassium 3.2 L, Chloride 97 L, Carbon Dioxide 30, Anion Gap 6.0, BUN 20, Creatinine 0.7, Estimated GFR (MDRD) 81 L, Glucose 104 H, Calcium 8.0 L 10/27/22 05:47: WBC 10.6, RBC 2.73 L, Hgb 7.3 L, Hct 24.0 L, MCV 87.9, MCH 26.7 L, MCHC 30.4 L, RDW 16.8 H, Plt Count 233, MPV 10.5, Neut # (Auto) 8.5 H, Lymph # (Auto) 0.9 L, [place] # (Auto) 0.5, Eos # (Auto) 0.2, Baso # (Auto) 0.0, Absolute Nucleated RBC 0.00, Nucleated RBC % 0.0 10/26/22 17:25: Hgb 8.5 L 10/26/22 09:25: Blood Type O POSITIVE, Antibody Screen NEGATIVE, Crossmatch IS Only See Detail 10/26/22 05:50: Sodium 131 L, Potassium 2.9 L, Chloride 95 L, Carbon Dioxide 26, Anion Gap 10.0, BUN 20, Creatinine 0.8, Estimated GFR (MDRD) 70 L, Glucose 100, Calcium 7.9 L 10/26/22 05:50: WBC 10.3, RBC 2.54 L, Hgb 6.9 L*, Hct 22.4 L, MCV 88.2, MCH 27.2, MCHC 30.8 L, RDW 16.9 H, Plt Count 230, MPV 10.8, Neut # (Auto) Not Reportable, Lymph # (Auto) Not Reportable, [place] # (Auto) Not Reportable, Eos # (Auto) Not Reportable, Baso # (Auto) Not Reportable, Absolute Nucleated RBC Not Reportable, Total Counted 100, Band Neuts % (Manual) 0, Abnorm Lymph % (Manual) 1, Metamyelocytes % 1 H, Myelocytes % 3 H, Nucleated RBC % Not Reportable, Neutrophils # (Manual) 8.3 H, Lymphocytes # (Manual) 1.0 L, Monocytes # (Manual) 0.2, Eosinophils # (Manual) 0.3, Basophils # (Manual) 0.0, Differential Comment MANUAL DIFFERENTIAL, WBC Morphology NORMAL APPEARANCE, Platelet Estimate NORMAL (130-450,000), Platelet Morphology NORMAL APPEARANCE, RBC Morph Micro Appear 1+ STOMATOCYTES - Diagnostic Imaging Results Diagnostic Imaging Results: positive: Final report reviewed Diagnostic Imaging Results Comments: 10/25/2022 CTA of the chest demonstrates no pulmonary emboli but diffuse groundglass opacities and bilateral pleural effusions 10/22/2022 CT of the abdomen and pelvis again demonstrates bilateral pleural effusions without any signs of acute inflammation in the abdomen. I personally reviewed the images and reports from the above studies. - Consultation Note Consultation Note: This is a 76-year-old female with: 1. Anemia, gastrointestinal bleeding The patient's hemoglobin was quite low at the time of admission. She was transfused in the emergency department, and her hemoglobin was essentially stable for several days. After resuming her blood thinner, a drop in her hemoglobin was again noted. The patient has not had any melanotic stools since admission. Plan to follow-up hemoglobin from this afternoon and tomorrow morning. Would consider EGD tomorrow, if hemoglobin continues to drop. The patient was not scoped earlier in the hospital stay due to her multiple medical comorbidities and ASA of 4. Prior to any endoscopy, I will have anesthesia review the patient's chart to determine if they feel that she is stable and appropriate for endoscopy in our procedure. -I agreed that the patient should not be on blood thinners at this time, and recommend continuing PPI. -If the patient is felt to be an appropriate endoscopy candidate, and upper endoscopy is negative, bowel prep and possible colonoscopy may be considered. 2. Acute respiratory failure with hypoxia The patient has been on 2 L of oxygen for several days. Her imaging continues to demonstrate patchy bilateral infiltrates and bilateral pleural effusions. Notably, the patient was not on oxygen prior to this admission. -She remains on antibiotics for presumed atypical pneumonia 3. Acute on chronic diastolic congestive heart failure, atrial fibrillation The patient has preserved left ventricular ejection fracture but also demonstrates significant diastolic heart failure. She has been diuresed well inpatient, though she continues to have significant bilateral lower extremity s welling and increased shortness of breath from baseline. 4. Left shoulder pain -The patient requires a complete shoulder replacement, but has not been medically stable to pursue this. She has chronic, severe pain in the shoulder which is thought to be secondary to radiation she received for breast cancer many years ago. 5. Hyponatremia, hypokalemia, lupus -As per primary team
[2022-10-27] MEDS: ATORVASTATIN 10 MG TABLET PO SCH (21:12)
[2022-10-27] MEDS: LORazepam 1 MG TABLET PO PRN (23:39)
[2022-10-28 04:58] LABS: BASOPHILS % (AUTO) 0.3 %; EOSINOPHILS # (AUTO) 0.3 10^3/uL (0.0-0.7); EOSINOPHILS % (AUTO) 3.4 %; HGB - HEMOGLOBIN 7.7 g/dL (12.0-16.0); LYMPHOCYTES # (AUTO) 0.9 10^3/uL (1.5-3.5); LYMPHOCYTES % (AUTO) 8.8 %; MEAN CORPUSCULAR HEMOGLOBIN 27.1 pg (27.0-31.0); MEAN CORPUSCULAR HGB CONC 30.8 g/dL (32.0-36.0); MEAN PLATELET VOLUME 10.5 fL (7.9-10.8); MONOCYTES # (AUTO) 0.5 10^3/uL (0.0-1.0); MONOCYTES % (AUTO) 4.8 %; NEUTROPHILS # (AUTO) 7.7 10^3/uL (1.5-6.6); PLT - PLATELET COUNT 290 10^3/uL (130-450); RED BLOOD COUNT 2.84 10^6/uL (4.20-5.40); RED CELL DISTRIBUTION WIDTH 16.8 % (12.0-15.0); WHITE BLOOD COUNT 9.6 x10^3/uL (4.8-10.8)
[2022-10-28 05:12] LABS: CALCIUM 8.2 mg/dL (8.5-10.3); CREATININE 0.7 mg/dL (0.4-1.0); MAGNESIUM 1.6 mg/dL (1.7-2.8); POTASSIUM 3.1 mmol/L (3.5-5.0)
[2022-10-28] MEDS ORDERED: MAGNESIUM SULFATE 1 GM in SODIUM CHLORIDE 0.9% 50 ML IV ONE (05:41)
--- NOTE | 2022-10-28 05:43 | PROVIDER PROGRESS NOTE ---
Subjective - Subjective Subjective: virgil 1.6 replaced Objective - Vital Signs/Intake & Output Vital Signs: Vital Signs x48h Temp Pulse Resp BP Pulse Ox O2 Flow Rate 10/27/22 23:36 36.6 C 89 16 100/67 97 2 Intake & Output: Intake & Output 10/25/22 10/26/22 10/27/22 10/28/22 23:59 23:59 23:59 23:59 Intake Total 1050 1595 1110 50 Output Total 750 975 500 0 Balance 300 620 610 50 - Lab Results Fish Bones: 10/28/22 04:30 10/28/22 04:30 Other Labs: Lab Results x24hrs 10/28/22 10/28/22 10/27/22 Range/Units 04:30 04:30 17:04 WBC 9.6 (4.8-10.8) x10^3/uL RBC 2.84 L (4.20-5.40) 10^6/uL Hgb 7.7 L 7.9 L (12.0-16.0) g/dL Hct 25.0 L (37.0-47.0) % MCV 88.0 (81.0-99.0) fL MCH 27.1 (27.0-31.0) pg MCHC 30.8 L (32.0-36.0) g/dL RDW 16.8 H (12.0-15.0) % Plt Count 290 (130-450) 10^3/uL MPV 10.5 (7.9-10.8) fL Neut # (Auto) 7.7 H (1.5-6.6) 10^3/uL Lymph # (Auto) 0.9 L (1.5-3.5) 10^3/uL [place] # (Auto) 0.5 (0.0-1.0) 10^3/uL Eos # (Auto) 0.3 (0.0-0.7) 10^3/uL Baso # (Auto) 0.0 (0.0-0.1) 10^3/uL Absolute Nucleated RBC 0.00 x10^3/uL Nucleated RBC % 0.0 /100WBC Sodium 135 (135-145) mmol/L Potassium 3.1 L (3.5-5.0) mmol/L Chloride 98 L (101-111) mmol/L Carbon Dioxide 27 (21-32) mmol/L Anion Gap 10.0 (6-13) BUN 18 (6-20) mg/dL Creatinine 0.7 (0.4-1.0) mg/dL Estimated GFR (MDRD) 81 L (>89) Glucose 100 (70-100) mg/dL Calcium 8.2 L (8.5-10.3) mg/dL Magnesium 1.6 L (1.7-2.8) mg/dL 10/27/22 10/27/22 Range/Units 05:47 05:47 WBC 10.6 (4.8-10.8) x10^3/uL RBC 2.73 L (4.20-5.40) 10^6/uL Hgb 7.3 L (12.0-16.0) g/dL Hct 24.0 L (37.0-47.0) % MCV 87.9 (81.0-99.0) fL MCH 26.7 L (27.0-31.0) pg MCHC 30.4 L (32.0-36.0) g/dL RDW 16.8 H (12.0-15.0) % Plt Count 233 (130-450) 10^3/uL MPV 10.5 (7.9-10.8) fL Neut # (Auto) 8.5 H (1.5-6.6) 10^3/uL Lymph # (Auto) 0.9 L (1.5-3.5) 10^3/uL [place] # (Auto) 0.5 (0.0-1.0) 10^3/uL Eos # (Auto) 0.2 (0.0-0.7) 10^3/uL Baso # (Auto) 0.0 (0.0-0.1) 10^3/uL Absolute Nucleated RBC 0.00 x10^3/uL Nucleated RBC % 0.0 /100WBC Sodium 133 L (135-145) mmol/L Potassium 3.2 L (3.5-5.0) mmol/L Chloride 97 L (101-111) mmol/L Carbon Dioxide 30 (21-32) mmol/L Anion Gap 6.0 (6-13) BUN 20 (6-20) mg/dL Creatinine 0.7 (0.4-1.0) mg/dL Estimated GFR (MDRD) 81 L (>89) Glucose 104 H (70-100) mg/dL Calcium 8.0 L (8.5-10.3) mg/dL Magnesium (1.7-2.8) mg/dL Sepsis Event Note (H) - Evaluation Current Stage of Sepsis: Sepsis (Continues to require norepinephrine for to keep MAP>65) - Sepsis Criteria Sepsis Criteria: Recorded Temperature greater than 38.3C or Less than 36C, Recorded Heart Rate greater than 90 bpm, SBP less than 90 mmHg
[2022-10-28] MEDS: SODIUM CHLORIDE FLUSH 0.9% 10 ML SYRINGE IVP PRN (06:18)
[2022-10-28] MEDS: SODIUM CHLORIDE FLUSH 0.9% 10 ML SYRINGE IVP SCH ×3 (07:41→20:24)
--- NOTE | 2022-10-28 07:44 | PROVIDER PROGRESS NOTE ---
Subjective - General Admit Date: 10/21/22 - Other Other Information/Narrative: Patient denies abdominal pain, nausea, vomiting this AM. She did get some rest overnight. Main complaint is shoulder discomfort this AM. Objective - Patient Data Weight: Weight 10/26/22 10/27/22 10/28/22 23:59 23:59 23:59 Weight (kg) 88.5 kg 89 kg 89 kg Intake & Output: Intake and Output Totals x24h 10/26/22 10/27/22 10/28/22 23:59 23:59 23:59 Intake Total 1595 1110 50 Output Total 975 500 0 Balance 620 610 50 - Lab Results Lab Results: 10/28/22 04:30 10/28/22 04:30 Other Lab Results: Lab Results x24hrs 10/28/22 10/28/22 10/27/22 Range/Units 04:30 04:30 17:04 WBC 9.6 (4.8-10.8) x10^3/uL RBC 2.84 L (4.20-5.40) 10^6/uL Hgb 7.7 L 7.9 L (12.0-16.0) g/dL Hct 25.0 L (37.0-47.0) % MCV 88.0 (81.0-99.0) fL MCH 27.1 (27.0-31.0) pg MCHC 30.8 L (32.0-36.0) g/dL RDW 16.8 H (12.0-15.0) % Plt Count 290 (130-450) 10^3/uL MPV 10.5 (7.9-10.8) fL Neut # (Auto) 7.7 H (1.5-6.6) 10^3/uL Lymph # (Auto) 0.9 L (1.5-3.5) 10^3/uL [place] # (Auto) 0.5 (0.0-1.0) 10^3/uL Eos # (Auto) 0.3 (0.0-0.7) 10^3/uL Baso # (Auto) 0.0 (0.0-0.1) 10^3/uL Absolute Nucleated RBC 0.00 x10^3/uL Nucleated RBC % 0.0 /100WBC Sodium 135 (135-145) mmol/L Potassium 3.1 L (3.5-5.0) mmol/L Chloride 98 L (101-111) mmol/L Carbon Dioxide 27 (21-32) mmol/L Anion Gap 10.0 (6-13) BUN 18 (6-20) mg/dL Creatinine 0.7 (0.4-1.0) mg/dL Estimated GFR (MDRD) 81 L (>89) Glucose 100 (70-100) mg/dL Calcium 8.2 L (8.5-10.3) mg/dL Magnesium 1.6 L (1.7-2.8) mg/dL - Current Medications Current Medications: Current Medications Generic Name Dose Route Start Last Admin Trade Name Freq PRN Reason Stop Dose Admin Acetaminophen 1,000 mg 10/16/22 15:54 10/27/22 18:51 Acetaminophen 500 Mg Tablet PO 1,000 mg Q6H PRN Administration Mild Pain Or Fever>38c(100.4f) Albuterol/Ipratropium 3 ml 10/19/22 22:20 10/27/22 19:45 Ipratropium/Albuterol 3 Ml Neb INH 3 ml Q4HR PRN Administration Shortness of Air/Wheezing Atorvastatin Calcium 10 mg 10/26/22 21:00 10/27/22 21:12 Atorvastatin 10 Mg Tablet PO 10 mg HS BRITT Administration Bumetanide 2 mg 10/25/22 12:00 10/27/22 09:53 Bumetanide 1 Mg/4 Ml Vial IVP 2 mg DAILY BRITT Administration Carvedilol 25 mg 10/16/22 21:00 10/27/22 21:12 Carvedilol 12.5 Mg Tablet PO 25 mg BID BRITT Administration Ciprofloxacin 500 mg 10/23/22 21:00 10/27/22 21:13 Ciprofloxacin 250 Mg Tablet PO 500 mg BID BRITT Administration Guaifenesin 600 mg 10/26/22 21:00 10/27/22 21:13 Guaifenesin 600 Mg Tablet PO 600 mg BID BRITT Administration Hydralazine HCl 10 mg 10/19/22 22:56 10/21/22 08:30 Hydralazine Inj 20 Mg/Ml Vial IVP 10 mg Q6HR PRN Administration Hypertensive Emergency Hydroxychloroquine Sulfate 200 mg 10/20/22 09:00 10/27/22 21:13 Hydroxychloroquine 200 Mg Tablet PO 200 mg BID BRITT Administration Promethazine HCl 25 mg/ Sodium 51 mls @ 100 mls/hr 10/20/22 18:22 10/22/22 17:22 Chloride IV Infused Q6H PRN Infusion Nausea / Vomiting Lorazepam 2 mg 10/23/22 00:24 10/27/22 23:39 Lorazepam 1 Mg Tablet PO 2 mg HS PRN Administration Anxiety Nystatin 1 applic 10/20/22 21:00 10/27/22 21:13 Nystatin Powder 15 Gm TOP 1 applic BID BRITT Administration Ondansetron HCl 4 mg 10/16/22 15:54 10/23/22 17:36 Ondansetron 4 Mg/2 Ml Vial IVP 4 mg Q6HR PRN Administration Nausea / Vomiting Pantoprazole Sodium 40 mg 10/27/22 21:00 10/27/22 21:13 Pantoprazole 40 Mg Tablet PO 40 mg BID BRITT Administration Polyethylene Glycol 17 gm 10/23/22 12:00 10/27/22 12:19 Polyethylene Glycol 3350 17 Gm Packet PO Not Given DAILY BRITT Potassium Chloride 20 meq 10/27/22 16:00 10/27/22 16:40 Potassium Chloride 10 Meq Capsule PO 20 meq DAILYWM BRITT Administration Promethazine HCl 25 mg 10/20/22 18:22 10/21/22 20:19 Promethazine 25 Mg Tablet PO 25 mg Q6HR PRN Administration Nausea / Vomiting Sertraline HCl 100 mg 10/17/22 09:00 10/27/22 09:54 Sertraline 50 Mg Tablet PO 100 mg DAILY BRITT Administration Sodium Chloride 10 ml 10/19/22 22:24 10/25/22 10:54 Sodium Chloride Flush 0.9% 10 Ml Syringe IVP 10 ml PRN PRN Administration NEEDED PER PROVIDER ORDERS Sodium Chloride 10 ml 10/20/22 01:00 10/27/22 23:39 Sodium Chloride Flush 0.9% 10 Ml Syringe IVP 10 ml 0100,0900,1700 BRITT Administration Sodium Chloride 20 ml 10/23/22 01:33 10/28/22 06:18 Sodium Chloride Flush 0.9% 10 Ml Syringe IVP 20 ml PRN PRN Administration After Blood Draw - Physical Exam General Appearance: positive: No acute distress, Alert Eyes Bilateral: positive: Normal inspection, EOMI ENT: positive: No signs of dehydration, Other (NC in place, on 2L) Respiratory: positive: Chest non-tender, Breath sounds nml Cardiovascular: positive: Irregularly irregular, Tachycardia (borderline (mid 90s)) Abdomen: positive: Non-tender, No distention. negative: Guarding, Rebound Skin: positive: No rash Extremities: positive: Full ROM, Pedal edema (2+ B LE) Neurologic/Psychiatric: positive: Oriented x3 Impression/Plan - Problem List Problem List: This is a 76-year-old female with: 1. Anemia, gastrointestinal bleeding The patient's hemoglobin was quite low at the time of admission, guiac + in ED. She was transfused in the emergency department, and her hemoglobin was essentially stable for several days. After resuming her blood thinner, a drop i n her hemoglobin was again noted. The patient has not had any melanotic stools since admission. Hgb essential stable (when allowing for lab variation) for last 24 hours. - Surgery has been consulted earlier in the patient's hospital stay. At that time, the patient was not scoped due to her multiple medical comorbidities and ASA of 4. Prior to any endoscopy, I will have anesthesia review the patient's chart to determine if they feel that she is stable and appropriate for endoscopy in our facility. Possible EGD later today. -I agreed that the patient should not be on blood thinners at this time, and recommend continuing PPI. -If the patient is felt to be an appropriate endoscopy candidate, and upper endoscopy is negative, the next decision will be if she can tolerate the amount of fluid needed for a bowel prep. This will need to be weighed carefully given her diastolic heart failure and current pulmonary status, but would be necessary prior to possible colonoscopy. 2. Acute respiratory failure with hypoxia The patient has been on 2 L of oxygen for several days. Her imaging continues to demonstrate patchy bilateral infiltrates and bilateral pleural effusions. Notably, the patient was not on oxygen prior to this admission. -She remains on antibiotics for presumed atypical pneumonia 3. Acute on chronic diastolic congestive heart failure, atrial fibrillation The patient has preserved left ventricular ejection fracture but also demonstrates significant diastolic heart failure. She has been diuresed while inpatient, though she continues to have significant bilateral lower extremity swelling and increased shortness of breath from baseline. 4. Left shoulder pain -The patient requires a complete shoulder replacement, but has not been medically stable to pursue this. She has chronic, severe pain in the shoulder which is thought to be secondary to radiation she received for breast cancer many years ago. 5. Hyponatremia, hypokalemia, lupus -As per primary team
[2022-10-28] MEDS: AZITHROMYCIN 250 MG TABLET PO SCH (09:34)
[2022-10-28] MEDS: CIPROFLOXACIN 250 MG TABLET PO SCH (09:34)
[2022-10-28] MEDS: carvediloL 12.5 MG TABLET PO SCH ×2 (09:36→20:21)
[2022-10-28] MEDS: guaiFENesin 600 MG TABLET PO SCH ×2 (09:38→20:20)
[2022-10-28] MEDS: HYDROXYCHLOROQUINE 200 MG TABLET PO SCH ×2 (09:40→20:20)
[2022-10-28] MEDS: polyethylene glycoL 3350 17 GM PACKET PO SCH (09:41)
[2022-10-28] MEDS: PANTOPRAZOLE 40 MG TABLET PO SCH ×2 (09:41→20:21)
[2022-10-28] MEDS: SERTRALINE 50 MG TABLET PO SCH (09:43)
[2022-10-28] MEDS: BUMETANIDE 1 MG/4 ML VIAL IVP SCH (09:45)
[2022-10-28] MEDS: POTASSIUM CHLOR 10 MEQ/100 ML 10 MEQ/100 ML BAG IV SCH ×3 (10:23→14:33)
[2022-10-28] MEDS: POTASSIUM CHLORIDE 10 MEQ CAPSULE PO SCH (10:35)
--- NOTE | 2022-10-28 11:25 | ANESTHESIA ---
Pre-Anesthesia VS, & Labs - Diagnosis GI bleed - Procedure EGD Vital Signs: Temp Pulse Resp BP Pulse Ox O2 Flow Rate 37.0 C 94 18 117/69 97 2 10/28/22 08:38 10/28/22 08:38 10/28/22 08:38 10/28/22 08:38 10/28/22 08:38 10/28/22 08:38 Height: 5 ft 4.5 in Weight (kg): 89 kg Body Mass Index: 33.1 BMI Classification: Obese - NPO Last Fluid Intake: 929 - Is Patient ?: No - Lab Results Current Lab Results: Laboratory Tests 10/28/22 04:30: Sodium 135, Potassium 3.1 L, Chloride 98 L, Carbon Dioxide 27, Anion Gap 10.0, BUN 18, Creatinine 0.7, Estimated GFR (MDRD) 81 L, Glucose 100, Calcium 8.2 L, Magnesium 1.6 L 10/28/22 04:30: WBC 9.6, RBC 2.84 L, Hgb 7.7 L, Hct 25.0 L, MCV 88.0, MCH 27.1, MCHC 30.8 L, RDW 16.8 H, Plt Count 290, MPV 10.5, Neut # (Auto) 7.7 H, Lymph # (Auto) 0.9 L, Barber # (Auto) 0.5, Eos # (Auto) 0.3, Baso # (Auto) 0.0, Absolute Nucleated RBC 0.00, Nucleated RBC % 0.0 10/27/22 17:04: Hgb 7.9 L 10/27/22 05:47: Sodium 133 L, Potassium 3.2 L, Chloride 97 L, Carbon Dioxide 30, Anion Gap 6.0, BUN 20, Creatinine 0.7, Estimated GFR (MDRD) 81 L, Glucose 104 H, Calcium 8.0 L 10/27/22 05:47: WBC 10.6, RBC 2.73 L, Hgb 7.3 L, Hct 24.0 L, MCV 87.9, MCH 26.7 L, MCHC 30.4 L, RDW 16.8 H, Plt Count 233, MPV 10.5, Neut # (Auto) 8.5 H, Lymph # (Auto) 0.9 L, Barber # (Auto) 0.5, Eos # (Auto) 0.2, Baso # (Auto) 0.0, Absolute Nucleated RBC 0.00, Nucleated RBC % 0.0 10/26/22 17:25: Hgb 8.5 L 10/26/22 09:25: Blood Type O POSITIVE, Antibody Screen NEGATIVE, Crossmatch IS Only See Detail 10/26/22 05:50: Sodium 131 L, Potassium 2.9 L, Chloride 95 L, Carbon Dioxide 26, Anion Gap 10.0, BUN 20, Creatinine 0.8, Estimated GFR (MDRD) 70 L, Glucose 100, Calcium 7.9 L 10/26/22 05:50: WBC 10.3, RBC 2.54 L, Hgb 6.9 L*, Hct 22.4 L, MCV 88.2, MCH 27.2, MCHC 30.8 L, RDW 16.9 H, Plt Count 230, MPV 10.8, Neut # (Auto) Not Reportable, Lymph # (Auto) Not Reportable, Barber # (Auto) Not Reportable, Eos # (Auto) Not Reportable, Baso # (Auto) Not Reportable, Absolute Nucleated RBC Not Reportable, Total Counted 100, Band Neuts % (Manual) 0, Abnorm Lymph % (Manual) 1, Metamyelocytes % 1 H, Myelocytes % 3 H, Nucleated RBC % Not Reportable, Neutrophils # (Manual) 8.3 H, Lymphocytes # (Manual) 1.0 L, Monocytes # (Manual) 0.2, Eosinophils # (Manual) 0.3, Basophils # (Manual) 0.0, Differential Comment MANUAL DIFFERENTIAL, WBC Morphology NORMAL APPEARANCE, Platelet Estimate NORMAL (130-450,000), Platelet Morphology NORMAL APPEARANCE, RBC Morph Micro Appear 1+ STOMATOCYTES 10/25/22 05:40: Sodium 133 L, Potassium 3.6, Chloride 99 L, Carbon Dioxide 26, Anion Gap 8.0, BUN 27 H, Creatinine 0.9, Estimated GFR (MDRD) 61 L, Glucose 101 H, Calcium 8.2 L 10/25/22 05:40: WBC 7.9, RBC 2.62 L, Hgb 7.2 L, Hct 23.4 L, MCV 89.3, MCH 27.5, MCHC 30.8 L, RDW 16.7 H, Plt Count 178, MPV 10.9 H, Neut # (Auto) 6.1, Lymph # (Auto) 1.0 L, Barber # (Auto) 0.5, Eos # (Auto) 0.2, Baso # (Auto) 0.0, Absolute Nucleated RBC 0.00, Nucleated RBC % 0.0 10/25/22 05:40: VBG pH 7.406, Ionized Calcium 1.16 10/24/22 05:20: Sodium 133 L, Potassium 4.1, Chloride 100 L, Carbon Dioxide 24, Anion Gap 9.0, BUN 26 H, Creatinine 0.8, Estimated GFR (MDRD) 70 L, Glucose 95, Calcium 8.4 L 10/24/22 05:20: WBC 7.6, RBC 2.78 L, Hgb 7.6 L, Hct 25.0 L, MCV 89.9, MCH 27.3, MCHC 30.4 L, RDW 16.4 H, Plt Count 160, MPV 10.5, Neut # (Auto) 6.2, Lymph # (Auto) 0.7 L, Barber # (Auto) 0.6, Eos # (Auto) 0.1, Baso # (Auto) 0.0, Absolute Nucleated RBC 0.02, Nucleated RBC % 0.3 10/24/22 05:20: VBG pH 7.391, Ionized Calcium 1.18 10/23/22 09:55: Last Dose Date 10/20/22, Last Dose Time 2049, Vancomycin Trough 3.9 L 10/23/22 09:55: Potassium 3.8, Magnesium 1.9 10/23/22 05:22: VBG pH 7.398, Ionized Calcium 1.12 L 10/23/22 05:22: WBC 6.5, RBC 2.63 L, Hgb 7.2 L, Hct 23.9 L, MCV 90.9, MCH 27.4, MCHC 30.1 L, RDW 16.2 H, Plt Count 152, MPV 10.0, Neut # (Auto) 5.5, Lymph # (Auto) 0.4 L, Barber # (Auto) 0.5, Eos # (Auto) 0.1, Baso # (Auto) 0.0, Absolute Nucleated RBC 0.00, Nucleated RBC % 0.0 10/23/22 05:22: Sodium 130 L, Potassium 3.6, Chloride 99 L, Carbon Dioxide 24, Anion Gap 7.0, BUN 27 H, Creatinine 1.0, Estimated GFR (MDRD) 54 L, Glucose 97, Calcium 7.9 L, Magnesium 1.8, Total Bilirubin 1.2 H, AST 42, ALT 34, Alkaline Phosphatase 85, Total Protein 4.6 L, Albumin 2.2 L, Globulin 2.4, Albumin/Globulin Ratio 0.9 L 10/23/22 05:22: Phosphorus 3.0 10/22/22 04:41: VBG pH 7.413 H, Ionized Calcium 1.10 L 10/22/22 04:41: Sodium 129 L, Potassium 3.7, Chloride 96 L, Carbon Dioxide 26, Anion Gap 7.0, BUN 27 H, Creatinine 1.3 H, Estimated GFR (MDRD) 40 L, Glucose 107 H, Calcium 7.9 L, Total Bilirubin 1.2 H, AST 28, ALT 29, Alkaline Phosphatase 82, Total Protein 4.8 L, Albumin 2.3 L, Globulin 2.5, Albumin/Globulin Ratio 0.9 L 10/22/22 04:41: WBC 7.5, RBC 2.84 L, Hgb 7.9 L, Hct 25.4 L, MCV 89.4, MCH 27.8, MCHC 31.1 L, RDW 15.9 H, Plt Count 193, MPV 10.1, Neut # (Auto) 6.7 H, Lymph # (Auto) 0.3 L, Barber # (Auto) 0.4, Eos # (Auto) 0.1, Baso # (Auto) 0.0, Absolute Nucleated RBC 0.00, Nucleated RBC % 0.0 10/21/22 16:05: WBC 9.4, RBC 2.99 L, Hgb 8.3 L, Hct 26.7 L, MCV 89.3, MCH 27.8, MCHC 31.1 L, RDW 16.1 H, Plt Count 214, MPV 9.1, Neut # (Auto) 8.6 H, Lymph # (Auto) 0.2 L, Barber # (Auto) 0.4, Eos # (Auto) 0.0, Baso # (Auto) 0.0, Absolute Nucleated RBC 0.00, Nucleated RBC % 0.0 10/21/22 04:20: VBG pH 7.394, Ionized Calcium 1.07 L 10/21/22 04:20: Sodium 130 L, Potassium 3.6, Chloride 95 L, Carbon Dioxide 26, Anion Gap 9.0, BUN 25 H, Creatinine 1.3 H, Estimated GFR (MDRD) 40 L, Glucose 127 H, Calcium 7.8 L, Total Bilirubin 1.2 H, AST 24, ALT 29, Alkaline Phosph atase 82, Total Protein 4.7 L, Albumin 2.4 L, Globulin 2.3, Albumin/Globulin Ratio 1.0 10/21/22 04:20: WBC 11.8 H, RBC 2.77 L, Hgb 7.8 L, Hct 25.4 L, MCV 91.7, MCH 28.2, MCHC 30.7 L, RDW 16.2 H, Plt Count 225, MPV 9.5, Neut # (Auto) 11.1 H, Lymph # (Auto) 0.2 L, Barber # (Auto) 0.4, Eos # (Auto) 0.0, Baso # (Auto) 0.0, Absolute Nucleated RBC 0.00, Nucleated RBC % 0.0 10/20/22 17:41: Potassium 3.5 10/20/22 08:06: Magnesium 2.1 10/20/22 08:06: Phosphorus 3.1 10/20/22 08:06: ESR 24 10/20/22 08:06: Sodium 125 L, Potassium 2.8 L, Chloride 87 L, Carbon Dioxide 30, Anion Gap 8.0, BUN 20, Creatinine 1.1 H, Estimated GFR (MDRD) 48 L, Glucose 112 H, Calcium 7.6 L, Total Bilirubin 1.6 H, AST 26, ALT 31, Alkaline Phosphatase 83, C-Reactive Protein 18.0 H, Total Protein 4.7 L, Albumin 2.7 L, Globulin 2.0 L, Albumin/Globulin Ratio 1.4 10/20/22 08:06: WBC 13.9 H, RBC 2.98 L, Hgb 8.5 L, Hct 27.0 L, MCV 90.6, MCH 28.5, MCHC 31.5 L, RDW 16.0 H, Plt Count 265, MPV 9.1, Neut # (Auto) 12.9 H, Lymph # (Auto) 0.3 L, Barber # (Auto) 0.5, Eos # (Auto) 0.1, Baso # (Auto) 0.0, Absolute Nucleated RBC 0.00, Nucleated RBC % 0.0 10/20/22 08:06: Troponin I High Sens 75.6 H* 10/20/22 06:20: Lactic Acid 1.2 10/19/22 07:26: Troponin I High Sens 112.0 H* 10/19/22 05:59: VBG pH 7.497 H, VBG pCO2 37.4 L, VBG pO2 92.0 H, VBG HCO3 28.3 H , VBG Total CO2 29.5 H, VBG O2 Saturation 97.5 H, VBG Base Excess 4.9 H 10/19/22 05:59: Troponin I High Sens 85.0 H* 10/19/22 05:59: B-Natriuretic Peptide 917 H 10/19/22 05:59: Sodium 131 L, Potassium 2.8 L, Chloride 91 L, Carbon Dioxide 28, Anion Gap 12.0, BUN 14, Creatinine 1.0, Estimated GFR (MDRD) 54 L, Glucose 98, Calcium 8.1 L 10/19/22 05:59: WBC 8.3, RBC 3.24 L, Hgb 9.1 L, Hct 29.2 L, MCV 90.1, MCH 28.1, MCHC 31.2 L, RDW 15.9 H, Plt Count 328, MPV 8.8, Neut # (Auto) 8.0 H, Lymph # (Auto) 0.1 L, Barber # (Auto) 0.0, Eos # (Auto) 0.1, Baso # (Auto) 0.0, Absolute Nucleated RBC 0.04, Nucleated RBC % 0.5 10/18/22 11:53: Hgb 8.3 L, Hct 26.8 L 10/18/22 06:06: Hgb 8.3 L, Hct 27.0 L 10/18/22 00:35: Hgb 8.6 L, Hct 28.0 L 10/17/22 18:00: Hgb 8.0 L, Hct 25.5 L 10/17/22 12:14: Hgb 8.5 L, Hct 27.1 L 10/17/22 05:51: Sodium 129 L, Potassium 3.4 L, Chloride 92 L, Carbon Dioxide 26, Anion Gap 11.0, BUN 21 H, Creatinine 1.0, Estimated GFR (MDRD) 54 L, Glucose 108 H, Calcium 8.1 L, Total Bilirubin 1.8 H, AST 48 H, ALT 40, Alkaline Phosphatase 95, Total Protein 5.6 L, Albumin 3.3, Globulin 2.3, Albumin/Globulin Ratio 1.4 10/17/22 05:51: Hgb 8.2 L, Hct 26.8 L 10/16/22 22:00: Hgb 6.8 L*, Hct 22.2 L 10/16/22 15:56: Troponin I High Sens 53.0 H* 10/16/22 15:56: PT 18.7 H, INR 1.7 H 10/16/22 15:56: Sodium 128 L, Potassium 3.9, Chloride 91 L, Carbon Dioxide 28, Anion Gap 9.0, BUN 27 H, Creatinine 1.1 H, Estimated GFR (MDRD) 48 L, Glucose 101 H, Calcium 8.4 L, Magnesium 2.4 10/16/22 15:56: Hgb 7.3 L, Hct 23.4 L 10/16/22 04:42: B-Natriuretic Peptide 700 H 10/16/22 04:42: Blood Type O POSITIVE, Antibody Screen NEGATIVE, Crossmatch IS Only See Detail 10/16/22 04:10: Blood Type Recheck O POSITIVE 10/16/22 03:57: Troponin I High Sens 51.5 H* 10/16/22 03:57: Sodium 125 L, Potassium 4.8, Chloride 88 L, Carbon Dioxide 28, Anion Gap 9.0, BUN 32 H, Creatinine 1.4 H, Estimated GFR (MDRD) 36 L, Glucose 122 H, Calcium 8.4 L, Total Bilirubin 1.0, AST 52 H, ALT 38, Alkaline Phosphatase 92, Total Protein 5.8 L, Albumin 3.3, Globulin 2.5, Albumin/Globulin Ratio 1.3, Lipase 33 10/16/22 03:57: WBC 8.0, RBC 1.91 L, Hgb 5.4 L*, Hct 18.2 L*, MCV 95.3, MCH 28.3, MCHC 29.7 L, RDW 16.2 H, Plt Count 414, MPV 9.7, Neut # (Auto) 6.7 H, Lymph # (Auto) 0.7 L, Barber # (Auto) 0.6, Eos # (Auto) 0.0, Baso # (Auto) 0.0, Absolute Nucleated RBC 0.03, Nucleated RBC % 0.4 Lab results reviewed: Yes Fish Bones: 10/28/22 04:30 10/28/22 04:30 Home Medications and Allergies Home Medications: Ambulatory Orders Acetaminophen [Tylenol] 1 tab PO BID PRN 10/20/22 Atorvastatin [Lipitor] 1 tab PO HS 10/20/22 Bifidobacterium Infantis [Align] 1 tab PO DAILY 10/20/22 Calcium Carbonate [Tums (Calcium Carbonate 500mg)] 2 tab PO DAILY PRN 10/20/22 Cholecalciferol [Vitamin D3] 1 cap PO DAILY 10/20/22 LORazepam [Lorazepam] 1 tab PO HS PRN 10/20/22 Magnesium Hydroxide [Milk of Magnesia] 10 ml PO DAILY PRN 10/20/22 Multivitamin [Theragran] 1 tab PO DAILY 10/20/22 Naloxone HCl Nasal [Narcan Nasal] 1 spray HELIO PRN PRN 10/20/22 Ondansetron Odt [Zofran Odt] 1 tab PO BID PRN 10/20/22 Vitamin B Complex 1 tab PO DAILY 10/20/22 polyethylene glycoL 3350 [Polyethylene Glycol 3350] 1 packet PO DAILY PRN 10/20/22 Active Medications Acetaminophen (Acetaminophen 500 Mg Tablet) 1,000 mg PO Q6H PRN PRN Reason: Mild Pain Or Fever>38c(100.4f) Last Admin: 10/27/22 18:51 Dose: 1,000 mg Albuterol/Ipratropium (Ipratropium/Albuterol 3 Ml Neb) 3 ml INH Q4HR PRN PRN Reason: Shortness of Air/Wheezing Last Admin: 10/27/22 19:45 Dose: 3 ml Atorvastatin Calcium (Atorvastatin 10 Mg Tablet) 10 mg PO [facility] Last Admin: 10/27/22 21:12 Dose: 10 mg Azithromycin (Azithromycin 250 Mg Tablet) 250 mg PO DAILY [facility] Stop: 10/31/22 23:55 Last Admin: 10/28/22 09:34 Dose: 250 mg Bumetanide (Bumetanide 1 Mg/4 Ml Vial) 2 mg IVP DAILY [facility] Last Admin: 10/28/22 09:45 Dose: 2 mg Carvedilol (Carvedilol 12.5 Mg Tablet) 25 mg PO BID [facility] Last Admin: 10/28/22 09:36 Dose: 25 mg Ciprofloxacin (Ciprofloxacin 250 Mg Tablet) 500 mg PO BID [facility] Last Admin: 10/28/22 09:34 Dose: 500 mg Guaifenesin (Guaifenesin 600 Mg Tablet) 600 mg PO BID [facility] Last Admin: 10/28/22 09:38 Dose: 600 mg Hydralazine HCl (Hydralazine Inj 20 Mg/Ml Vial) 10 mg IVP Q6HR PRN PRN Reason: Hypertensive Emergency Last Admin: 10/21/22 08:30 Dose: 10 mg Hydroxychloroquine Sulfate (Hydroxychloroquine 200 Mg Tablet) 200 mg PO BID [facility] Last Admin: 10/28/22 09:40 Dose: 200 mg Promethazine HCl 25 mg/ Sodium (Chloride) 51 mls @ 100 mls/hr IV Q6H PRN PRN Reason: Nausea / Vomiting Last Infusion: 10/22/22 17:22 Dose: Infused Lorazepam (Lorazepam 1 Mg Tablet) 2 mg PO HS PRN PRN Reason: Anxiety Last Admin: 10/27/22 23:39 Dose: 2 mg Nystatin (Nystatin Powder 15 Gm) 1 applic TOP BID [facility] Last Admin: 10/27/22 21:13 Dose: 1 applic Ondansetron HCl (Ondansetron 4 Mg/2 Ml Vial) 4 mg IVP Q6HR PRN PRN Reason: Nausea / Vomiting Last Admin: 10/23/22 17:36 Dose: 4 mg Pantoprazole Sodium (Pantoprazole 40 Mg Tablet) 40 mg PO BID [facility] Last Admin: 10/28/22 09:41 Dose: 40 mg Polyethylene Glycol (Polyethylene Glycol 3350 17 Gm Packet) 17 gm PO DAILY [facility] Last Admin: 10/28/22 09:41 Dose: Not Given Potassium Chloride (Potassium Chloride 10 Meq Capsule) 20 meq PO DAILYWM [facility] Last Admin: 10/28/22 10:35 Dose: 20 meq Promethazine HCl (Promethazine 25 Mg Tablet) 25 mg PO Q6HR PRN PRN Reason: Nausea / Vomiting Last Admin: 10/21/22 20:19 Dose: 25 mg Sertraline HCl (Sertraline 50 Mg Tablet) 100 mg PO DAILY [facility] Last Admin: 10/28/22 09:43 Dose: 100 mg Sodium Chloride (Sodium Chloride Flush 0.9% 10 Ml Syringe) 10 ml IVP PRN PRN PRN Reason: NEEDED PER PROVIDER ORDERS Last Admin: 10/25/22 10:54 Dose: 10 ml Sodium Chloride (Sodium Chloride Flush 0.9% 10 Ml Syringe) 10 ml IVP 0100,[id number],1700 [facility] Last Admin: 10/28/22 09:57 Dose: 30 ml Sodium Chloride (Sodium Chloride Flush 0.9% 10 Ml Syringe) 20 ml IVP PRN PRN PRN Reason: After Blood Draw Last Admin: 10/28/22 06:18 Dose: 20 ml Tramadol HCl (Tramadol 50 Mg Tablet) 50 mg PO Q4HR PRN PRN Reason: PAIN Candesartan Cilexetil 1 tab PO DAILY 04/10/17 Hydroxychloroquine [Plaquenil] 200 mg PO BID 04/10/17 Omeprazole [PriLOSEC] 1 tab PO DAILY 04/10/17 Potassium Chloride 2.5 tab PO DAILY 04/10/17 Sertraline [Zoloft] 100 mg PO DAILY 04/10/17 carvediloL [Carvedilol] 25 mg PO BID 04/10/17 Acetaminophen [Tylenol] 1 tab PO BID PRN 10/20/22 Atorvastatin [Lipitor] 1 tab PO HS 10/20/22 Bifidobacterium Infantis [Align] 1 tab PO DAILY 10/20/22 Calcium Carbonate [Tums (Calcium Carbonate 500mg)] 2 tab PO DAILY PRN 10/20/22 Cholecalciferol [Vitamin D3] 1 cap PO DAILY 10/20/22 LORazepam [Lorazepam] 1 tab PO HS PRN 10/20/22 Magnesium Hydroxide [Milk of Magnesia] 10 ml PO DAILY PRN 10/20/22 Multivitamin [Theragran] 1 tab PO DAILY 10/20/22 Naloxone HCl Nasal [Narcan Nasal] 1 spray HELIO PRN PRN 10/20/22 Ondansetron Odt [Zofran Odt] 1 tab PO BID PRN 10/20/22 Vitamin B Complex 1 tab PO DAILY 10/20/22 polyethylene glycoL 3350 [Polyethylene Glycol 3350] 1 packet PO DAILY PRN 10/20/22 Allergies/Adverse Reactions: Allergies Allergy/AdvReac Type Severity Reaction Status Date / Time prochlorperazine edisylate * Allergy Severe Unknown Verified 10/22/22 16:01 [From Compazine] prochlorperazine Allergy Unknown Verified 10/16/22 04:07 [From Compazine] prochlorperazine maleate * Allergy Unknown Verified 10/16/22 04:07 [From Compazine] codeine AdvReac Severe Emesis Verified 10/22/22 16:05 hydrocodone AdvReac Nausea Verified 10/22/22 16:30 monosodium glutamate AdvReac Emesis Verified 10/23/22 11:38 oxycodone AdvReac Emesis Verified 10/22/22 15:59 Anes History & Medical History - Anesthetic History Anesthesia Complications: reports: Post-Operative Nausea/Vomiting, Prolonged PACU stay, Slow wake-up Family history of Anesthesia Complications: Denies Family history of Malignant Hyperthermia: Denies - Medical History Cardiovascular: reports: Congestive heart failure, Hypertension, Coronary artery disease, [place], Atrial fibrillation Pulmonary: reports: Pneumonia Gastrointestinal: reports: GI bleed, Hemorrhoids, Diverticulitis Urinary: reports: None Neuro: reports: Migraines, Peripheral neuropathy Musculoskeletal: reports: Osteoarthritis, Scoliosis, Chronic back pain Endocrine/Autoimmune: reports: Systemic lupus erythematosus Blood Disorders: reports: Anemia Skin: reports: None Smoking Status: Never smoker Other Past Medical History: 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, lymphedema left arm (wears sleeve), tremors to right hand at times; RHP - Surgical History General: reports: Bowel surgery, Colonoscopy, Other Eyes Ears Nose Throat (EENT): reports: Cataracts Orthopedic: reports: Hip replacement, Knee replacement, Shoulder arthroplasty Exam General: Alert, Oriented x3, Cooperative Mouth Openin Fingerbreadth Neck Mobility: Reduced Mallampati classification: III Thyromental Distance: 4-6 cm Respiratory: Normal breath sounds, Decreased breath sounds, Crackles (b lower lobes) Cardiovascular: Other (AF) Neurological: Normal speech Mental/Cognitive Status: Alert/Oriented X3, Normal for patient Plan Anesthesia Type: Total IV Consent for Procedure(s) Verified and Reviewed: Yes Code Status: Attempt Resuscitation ASA classification: 3-Severe systemic disease Is this case an emergency?: Yes
[2022-10-28] MEDS ORDERED: PROPOFOL 500 MG/50 ML 500 MG/50 ML VIAL ONE (11:30)
[2022-10-28] MEDS ORDERED: LIDOCAINE-MPF 2% 5 ML VIAL ONE (11:30)
[2022-10-28] MEDS: NYSTATIN POWDER 15 GM TOP SCH ×2 (11:38→20:31)
--- NOTE | 2022-10-28 12:29 | PROVIDER PROGRESS NOTE ---
Assessment/Plan - Problem List (1) Symptomatic anemia Assessment/Plan: Her hemoglobin dropped to 6.9 several days ago, despite getting IV diuretics. We therefore stopped her Eliquis, which had been resumed 4 days previously, when it was thought that she had stopped having a GI bleed. She got 1U of blood transfused for the Hgb of 6.9, then Hgb krish to 8.3. Since then hemoglobin is running 7.2 to 7.9 Gen Surg consulted for EGD and colonoscopy, I spoke to Dr Black. Plan: Follow hemoglobin every 12 hours Target Hgb is 7.5 (2) Gastrointestinal bleed Impression: When she presented to the ED she received transfusions, was seen by general surgeon Dr Elvis llamas and plan was for outpatient EGD. Her apixaban was resumed when the GI bleeding was felt to have stopped, due to her stable hemoglobins for several days Then her Hemoglobin dropped to 6.9 several days ago, despite being on iv BID diuretic. We then stopped her Eliquis. After the last transfusion, hemoglobin up to 8.3, now Hgb running 7.2 - 7.9. A new Gen Surg consult was requested for doing an EGD and colonoscopy. I spoke to Dr Black yesterday and the plan will be for EGD today 10/28 Plan: Continue empiric Protonix 40 IV twice daily Continue clear liquid diet, and she will need bowel prep this evening, if she needs the colonoscopy on Sunday 10/29. Qualifiers: GI bleed type/associated pathology: unspecified gastrointestinal hemorrhage type Qualified Code(s): K92.2 - Gastrointestinal hemorrhage, unspecified (3) Acute respiratory failure with hypoxia Since developing CHF after blood transfusions were given, she has needed supplemental O2. There are continued "patchy bilateral infiltrate" seen on CT imaging and chest x-rays. It is unclear if this is all edema or if there is some inflammation or infection. Plan: Will continue with O2 supplemental to keep saturations greater than 90% Patient will need an oximetry walk test on the day of discharge to see if she needs home O2. Will continue to treat her volume overload and I changed her antibx coverage empirically to treat for atypical pneumonia using Zithromax po. (4) Acute on chronic diastolic CHF (congestive heart failure) Impression: She has had shortness of breath with activity, has been on 2L of O2 NC. We think her SOB is related to heart failure and an atypical PNA. Pulmonary embolism was ruled out with a CTA of chest. That CT chest reported scattered opacities c/w infection, but she had no WBC elevation. Troponins were negative for acute RI earlier this hospitalization as well Echo was done several days ago that showed preserved LVEF of 60 to 65%. 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 The last CXR continues to report bilateral patchy infiltrates Plan: continue diuresis. IS was re- ordered, given the bilateral atelectasis reported on last last CT chest Will continue Mucinex. We will give a course of oral Zithromax, 500 mg today then 250 mg daily x4 days Qualifiers: Heart failure type: diastolic Heart failure chronicity: acute Qualified Code(s): I50.31 - Acute diastolic (congestive) heart failure (5) Abn CXR Because of her worsened cough and a recent fever, another chest x-ray was done that continues to report bilateral patchy infiltrates. Plan: IS was re- ordered given the bilateral atelectasis reported on last CT chest Will continue Mucinex. We will give a course of oral Zithromax, 500 mg today then 250 mg daily x4 days. I discussed this plan with pt and yesterday. (6) Afib Impression: Currently rate is well controlled. [id number] score 5 and she was on Xarelto at home, then on Eliquid here (since Xarelto is not on the hospital formulary). We stopped the Eliquis when Hgb dropped to 6.9, suggesting bleeding again occurring. Plan: Continue coreg for rate control. Remain off DOAC for at least 1 month if a GI bleed is found. Yesterday I explained this to the patient and who was on the phone at the time Qualifiers: Atrial fibrillation type: longstanding persistent Qualified Code(s): I48.11 - Longstanding persistent atrial fibrillation (7) Hyponatremia Impression: This had recurred and Na 130 This may be due to loop diuretic use and/or free water excess since she has not been in negative fluid balance despite getting loop diuretics. Plan: Continue free water restriction of 1000 cc total per day, ordered this on 10/26 (8) Hypokalemia This is related to IV diuretic use most likely Plan: Potassium replacement Follow BMP daily We will also check her serum magnesium and correct if low (9) Shoulder injury Impression: stable Today the patient described that she cannot "lay on her left side because of the metal arm brace" which covers her L arm, from palm to axilla. She says that the whole arm was purple from a massive hematoma and that the L shoulder is damaged from radiation that was given for her breast cancer. Even her L breast had a hematoma. She says that this happened about 3 months ago and the breast hematoma is still resolving, the arm hematoma is gone. Per spouse the plan is for shoulder joint replacement surgery. She wears this brace constantly. She says that the surgery is not yet scheduled. She denies excessive pain but says she cannot lay on that left side. Plan: no specific treatment Perhaps these large hematomas, of the left breast and entire left arm, where the cause of her severe anemia Qualifiers: Encounter type: initial encounter Laterality: left Qualified Code(s): S49.92XA - Unspecified injury of left shoulder and upper arm, initial encounter (10) Lupus Plan: We are continuing her Plaquenil. (11) Septic shock Impression: Resolved. UTI caused septic shock. Vital signs stable now, no temperature in last couple of days. Plan: Abx started 10/20/22 are ending today. - Current Meds Current Meds: Current Medications Generic Name Dose Route Start Last Admin Trade Name Freq PRN Reason Stop Dose Admin Acetaminophen 1,000 mg 10/16/22 15:54 10/27/22 18:51 Acetaminophen 500 Mg Tablet PO 1,000 mg Q6H PRN Administration Mild Pain Or Fever>38c(100.4f) Albuterol/Ipratropium 3 ml 10/19/22 22:20 10/27/22 19:45 Ipratropium/Albuterol 3 Ml Neb INH 3 ml Q4HR PRN Administration Shortness of Air/Wheezing Atorvastatin Calcium 10 mg 10/26/22 21:00 10/27/22 21:12 Atorvastatin 10 Mg Tablet PO 10 mg HS BRITT Administration Azithromycin 250 mg 10/28/22 09:00 10/28/22 09:34 Azithromycin 250 Mg Tablet PO 10/31/22 23:55 250 mg DAILY BRITT Administration Bumetanide 2 mg 10/25/22 12:00 10/28/22 09:45 Bumetanide 1 Mg/4 Ml Vial IVP 2 mg DAILY BRITT Administration Carvedilol 25 mg 10/16/22 21:00 10/28/22 09:36 Carvedilol 12.5 Mg Tablet PO 25 mg BID BRITT Administration Ciprofloxacin 500 mg 10/23/22 21:00 10/28/22 09:34 Ciprofloxacin 250 Mg Tablet PO 500 mg BID BRITT Administration Guaifenesin 600 mg 10/26/22 21:00 10/28/22 09:38 Guaifenesin 600 Mg Tablet PO 600 mg BID BRITT Administration Hydralazine HCl 10 mg 10/19/22 22:56 10/21/22 08:30 Hydralazine Inj 20 Mg/Ml Vial IVP 10 mg Q6HR PRN Administration Hypertensive Emergency Hydroxychloroquine Sulfate 200 mg 10/20/22 09:00 10/28/22 09:40 Hydroxychloroquine 200 Mg Tablet PO 200 mg BID BRITT Administration Promethazine HCl 25 mg/ Sodium 51 mls @ 100 mls/hr 10/20/22 18:22 10/22/22 17:22 Chloride IV Infused Q6H PRN Infusion Nausea / Vomiting Lorazepam 2 mg 10/23/22 00:24 10/27/22 23:39 Lorazepam 1 Mg Tablet PO 2 mg HS PRN Administration Anxiety Nystatin 1 applic 10/20/22 21:00 10/28/22 11:38 Nystatin Powder 15 Gm TOP 1 applic BID BRITT Administration Ondansetron HCl 4 mg 10/16/22 15:54 10/23/22 17:36 Ondansetron 4 Mg/2 Ml Vial IVP 4 mg Q6HR PRN Administration Nausea / Vomiting Pantoprazole Sodium 40 mg 10/27/22 21:00 10/28/22 09:41 Pantoprazole 40 Mg Tablet PO 40 mg BID BRITT Administration Polyethylene Glycol 17 gm 10/23/22 12:00 10/28/22 09:41 Polyethylene Glycol 3350 17 Gm Packet PO Not Given DAILY BRITT Potassium Chloride 20 meq 10/27/22 16:00 10/28/22 10:35 Potassium Chloride 10 Meq Capsule PO 20 meq DAILYWM BRITT Administration Promethazine HCl 25 mg 10/20/22 18:22 10/21/22 20:19 Promethazine 25 Mg Tablet PO 25 mg Q6HR PRN Administration Nausea / Vomiting Sertraline HCl 100 mg 10/17/22 09:00 10/28/22 09:43 Sertraline 50 Mg Tablet PO 100 mg DAILY BRITT Administration Sodium Chloride 10 ml 10/19/22 22:24 10/25/22 10:54 Sodium Chloride Flush 0.9% 10 Ml Syringe IVP 10 ml PRN PRN Administration NEEDED PER PROVIDER ORDERS Sodium Chloride 10 ml 10/20/22 01:00 10/28/22 09:57 Sodium Chloride Flush 0.9% 10 Ml Syringe IVP 30 ml 0100,0900,1700 BRITT Administration Sodium Chloride 20 ml 10/23/22 01:33 10/28/22 06:18 Sodium Chloride Flush 0.9% 10 Ml Syringe IVP 20 ml PRN PRN Administration After Blood Draw - Lab Result Fish Bone Diagrams: 10/28/22 16:13 10/28/22 04:30 - Additional Planning My Orders: My Active Orders 10/27/22 15:48 Miscellaenous Nursing Order [RC] QSHIFT 10/27/22 16:00 Potassium Chloride [Micro-K] 20 meq PO DAILYWM 10/27/22 21:00 Pantoprazole [Protonix] 40 mg PO BID 10/28/22 09:00 Azithromycin [Zithromax] 250 mg PO DAILY 10/28/22 16:00 HGB - HEMOGLOBIN [HEME] Timed Subjective - Subjective Patient Reports: Feeling Better (Less short of breath than yesterday, we tried going on room air and her saturation dropped from 97% to 91%) Objective Vital Signs: Vital Signs - 24 hr 10/27/22 10/27/22 10/27/22 15:45 19:45 23:36 Temperature 36.7 C 36.6 C Heart Rate 98 Heart Rate [ 96 89 Brachial] Respiratory 16 24 16 Rate Blood Pressure 103/64 100/67 [Right Brachial artery] O2 Saturation 97 97 If not protocol 2 2 2 : Oxygen Flow, liters/minute 10/28/22 10/28/22 10/28/22 08:03 08:38 11:32 Temperature 37.0 C 36.9 C Heart Rate Heart Rate [ 94 114 H Brachial] Respiratory 18 24 Rate Blood Pressure 117/69 124/79 [Right Brachial artery] O2 Saturation 97 91 L If not protocol 2 2 : Oxygen Flow, liters/minute Oxygen O2 Source Room air Oxygen Flow Rate 2 I&O (Last 24 Hrs): Intake and Output Totals x24h 10/26/22 10/27/22 10/28/22 23:59 23:59 23:59 Intake Total 1595 1110 842 Output Total 975 500 0 Balance 620 610 842 General: Alert, Oriented x3 HEENT: Mucous membr. moist/pink Neck: Supple, No JVD Neuro: Alert, Non Focal, Other (Hand tremor when nervous) Cardiovascular: No murmurs, Other (irreg) Respiratory: Breath sounds nml Abdomen: Normal bowel sounds, Soft, No tenderness Extremities: Other (1+ edema both legs to above ankles. L arm is in metal brace from palm to axilla) Skin: No rashes (The left breast is very pendulous and has multiple purple areas of hematoma that are clearing) - Results Results: Laboratory Results WBC 9.6 x10^3/uL (4.8-10.8) 10/28/22 04:30 RBC 2.84 10^6/uL (4.20-5.40) L 10/28/22 04:30 Hgb 7.7 g/dL (12.0-16.0) L 10/28/22 04:30 Hct 25.0 % (37.0-47.0) L 10/28/22 04:30 MCV 88.0 fL (81.0-99.0) 10/28/22 04:30 MCH 27.1 pg (27.0-31.0) 10/28/22 04:30 MCHC 30.8 g/dL (32.0-36.0) L 10/28/22 04:30 RDW 16.8 % (12.0-15.0) H 10/28/22 04:30 Plt Count 290 10^3/uL (130-450) 10/28/22 04:30 MPV 10.5 fL (7.9-10.8) 10/28/22 04:30 Neut # (Auto) 7.7 10^3/uL (1.5-6.6) H 10/28/22 04:30 Lymph # (Auto) 0.9 10^3/uL (1.5-3.5) L 10/28/22 04:30 Irion # (Auto) 0.5 10^3/uL (0.0-1.0) 10/28/22 04:30 Eos # (Auto) 0.3 10^3/uL (0.0-0.7) 10/28/22 04:30 Baso # (Auto) 0.0 10^3/uL (0.0-0.1) 10/28/22 04:30 Absolute Nucleated RBC 0.00 x10^3/uL 10/28/22 04:30 Total Counted 100 10/26/22 05:50 Band Neuts % (Manual) 0 % (0-10) 10/26/22 05:50 Abnorm Lymph % (Manual) 1 % 10/26/22 05:50 Metamyelocytes % 1 % (-0) H 10/26/22 05:50 Myelocytes % 3 % (-0) H 10/26/22 05:50 Nucleated RBC % 0.0 /100WBC 10/28/22 04:30 Neutrophils # (Manual) 8.3 10^3/uL (1.5-6.6) H 10/26/22 05:50 Lymphocytes # (Manual) 1.0 10^3/uL (1.5-3.5) L 10/26/22 05:50 Monocytes # (Manual) 0.2 10^3/uL (0.0-1.0) 10/26/22 05:50 Eosinophils # (Manual) 0.3 10^3/uL (0-0.7) 10/26/22 05:50 Basophils # (Manual) 0.0 10^3/uL (0-0.1) 10/26/22 05:50 Differential Comment MANUAL DIFFERENTIAL 10/26/22 05:50 WBC Morphology NORMAL APPEARANCE (NORMAL) 10/26/22 05:50 Platelet Estimate NORMAL (130-450,000) (NORMAL) 10/26/22 05:50 Platelet Morphology NORMAL APPEARANCE (NORMAL) 10/26/22 05:50 RBC Morph Micro Appear 2+ HYPOCHROMASIA (NORMAL) 1+ STOMATOCYTES (NORMAL) 10/26/22 05:50 RBC Morph Micro Appear 2+ HYPOCHROMASIA (NORMAL) 1+ STOMATOCYTES (NORMAL) 10/26/22 05:50 ESR 24 mm/Hr (0-30) 10/20/22 08:06 PT 18.7 secs (9.9-12.6) H 10/16/22 15:56 INR 1.7 (0.8-1.2) H 10/16/22 15:56 VBG pH 7.406 (7.31-7.41) 10/25/22 05:40 VBG pCO2 37.4 mmHg (41-51) L 10/19/22 05:59 VBG pO2 92.0 mmHg (25-47) H 10/19/22 05:59 VBG HCO3 28.3 mmol/L (23-28) H 10/19/22 05:59 VBG Total CO2 29.5 mmol/L (24-29) H 10/19/22 05:59 VBG O2 Saturation 97.5 % (60-80) H 10/19/22 05:59 VBG Base Excess 4.9 mmol/L (-2 - +2) H 10/19/22 05:59 Ionized Calcium 1.16 mmol/L (1.15-1.33) 10/25/22 05:40 Sodium 135 mmol/L (135-145) 10/28/22 04:30 Potassium 3.1 mmol/L (3.5-5.0) L 10/28/22 04:30 Chloride 98 mmol/L (101-111) L 10/28/22 04:30 Carbon Dioxide 27 mmol/L (21-32) 10/28/22 04:30 Anion Gap 10.0 (6-13) 10/28/22 04:30 BUN 18 mg/dL (6-20) 10/28/22 04:30 Creatinine 0.7 mg/dL (0.4-1.0) 10/28/22 04:30 Estimated GFR (MDRD) 81 (>89) L 10/28/22 04:30 Glucose 100 mg/dL (70-100) 10/28/22 04:30 Lactic Acid 1.2 mmol/L (0.5-2.2) 10/20/22 06:20 Calcium 8.2 mg/dL (8.5-10.3) L 10/28/22 04:30 Phosphorus 3.0 mg/dL (2.5-4.6) 10/23/22 05:22 Magnesium 1.6 mg/dL (1.7-2.8) L 10/28/22 04:30 Total Bilirubin 1.2 mg/dL (0.2-1.0) H 10/23/22 05:22 AST 42 IU/L (10-42) 10/23/22 05:22 ALT 34 IU/L (10-60) 10/23/22 05:22 Alkaline Phosphatase 85 IU/L (42-121) 10/23/22 05:22 Troponin I High Sens 75.6 ng/L (2.3-14.8) H* 10/20/22 08:06 C-Reactive Protein 18.0 mg/dL (0-1.0) H 10/20/22 08:06 B-Natriuretic Peptide 917 pg/mL (5-100) H 10/19/22 05:59 Total Protein 4.6 g/dL (6.7-8.2) L 10/23/22 05:22 Albumin 2.2 g/dL (3.2-5.5) L 10/23/22 05:22 Globulin 2.4 g/dL (2.1-4.2) 10/23/22 05:22 Albumin/Globulin Ratio 0.9 (1.0-2.2) L 10/23/22 05:22 Lipase 33 U/L (22-51) 10/16/22 03:57 Nasal Adenovirus (PCR) NOT DETECTED 10/19/22 04:40 Nasal B. parapertussis DNA (PCR) NOT DETECTED 10/19/22 04:40 Nasal Coronavir 229E PCR NOT DETECTED 10/19/22 04:40 Nasal Coronavir HKU1 PCR NOT DETECTED 10/19/22 04:40 Nasal Coronavir NL63 PCR NOT DETECTED 10/19/22 04:40 Nasal Coronavir OC43 PCR NOT DETECTED 10/19/22 04:40 Nasal Enterovir/Rhinovir PCR NOT DETECTED 10/19/22 04:40 Nasal Influenza B PCR NOT DETECTED 10/19/22 04:40 Nasal Influenza A PCR NOT DETECTED 10/19/22 04:40 Nasal Parainfluen 1 PCR NOT DETECTED 10/19/22 04:40 Nasal Parainfluen 2 PCR NOT DETECTED 10/19/22 04:40 Nasal Parainfluen 3 PCR NOT DETECTED 10/19/22 04:40 Nasal Parainfluen 4 PCR NOT DETECTED 10/19/22 04:40 Nasal RSV (PCR) NOT DETECTED 10/19/22 04:40 Nasal Screen MRSA (PCR) NEGATIVE (NEGATIVE) 10/20/22 13:13 Nasal B.pertussis DNA PCR NOT DETECTED 10/19/22 04:40 Nasal C.pneumoniae (PCR) NOT DETECTED 10/19/22 04:40 Matthieu Human Metapneumo PCR NOT DETECTED 10/19/22 04:40 Nasal M.pneumoniae (PCR) NOT DETECTED 10/19/22 04:40 Nasal SARS-CoV-2 (PCR) NOT DETECTED 10/19/22 04:40 Last Dose Date 10/20/22 10/23/22 09:55 Last Dose Time 204910/23/22 09:55 Vancomycin Trough 3.9 ug/mL (10.0-20.0) L 10/23/22 09:55 SARS-CoV-2 (PCR) NOT DETECTED 10/16/22 17:33 Blood Type O POSITIVE 10/26/22 09:25 Blood Type Recheck O POSITIVE 10/16/22 04:10 Antibody Screen NEGATIVE 10/26/22 09:25 Crossmatch IS Only See Detail 10/26/22 09:25 Sepsis Event Note (H) - Evaluation Current Stage of Sepsis: Sepsis (Continues to require norepinephrine for to keep MAP>65) - Sepsis Criteria Sepsis Criteria: Recorded Temperature greater than 38.3C or Less than 36C, Recorded Heart Rate greater than 90 bpm, SBP less than 90 mmHg
--- NOTE | 2022-10-28 15:59 | ANESTHESIA POST OP EVALUATION ---
Anesthesia Post Eval - Post Anesthesia Eval Vitals: Last Vital Signs Temp 36.9 C 10/28/22 15:30 Pulse 109 H 10/28/22 15:30 Resp 18 10/28/22 15:30 BP 129/88 H 10/28/22 15:30 Pulse Ox 97 10/28/22 15:30 O2 Flow Rate 1 10/28/22 15:30 CV Function Including HR & BP: Stable Pain Control: Satisfactory Nausea & Vomiting: Negative Mental Status: Baseline Respiratory Status: Airway Patent Hydration Status: Satisfactory Anesthesia Complications: None
[2022-10-28] MEDS: ACETAMINOPHEN 500 MG TABLET PO PRN (16:10)
[2022-10-28] MEDS: ATORVASTATIN 10 MG TABLET PO SCH (20:20)
[2022-10-28] MEDS: LORazepam 1 MG TABLET PO PRN (20:23)
[2022-10-29] MEDS: SODIUM CHLORIDE FLUSH 0.9% 10 ML SYRINGE IVP SCH ×3 (01:00→17:13)
[2022-10-29] MEDS: BUMETANIDE 1 MG/4 ML VIAL IVP SCH (06:18)
[2022-10-29] MEDS: ACETAMINOPHEN 500 MG TABLET PO PRN ×2 (07:45→16:34)
[2022-10-29] MEDS: POTASSIUM CHLORIDE 10 MEQ CAPSULE PO SCH (07:46)
[2022-10-29 09:25] LABS: BASOPHILS % (AUTO) 0.3 %; EOSINOPHILS # (AUTO) 0.2 10^3/uL (0.0-0.7); EOSINOPHILS % (AUTO) 1.9 %; HCT - HEMATOCRIT 25.3 % (37.0-47.0); HGB - HEMOGLOBIN 7.8 g/dL (12.0-16.0); LYMPHOCYTES # (AUTO) 0.5 10^3/uL (1.5-3.5); LYMPHOCYTES % (AUTO) 5.5 %; MEAN CORPUSCULAR HEMOGLOBIN 27.1 pg (27.0-31.0); MEAN CORPUSCULAR HGB CONC 30.8 g/dL (32.0-36.0); MEAN CORPUSCULAR VOLUME 87.8 fL (81.0-99.0); MEAN PLATELET VOLUME 10.3 fL (7.9-10.8); MONOCYTES # (AUTO) 0.5 10^3/uL (0.0-1.0); MONOCYTES % (AUTO) 5.4 %; NEUTROPHILS # (AUTO) 8.4 10^3/uL (1.5-6.6); NEUTROPHILS % (AUTO) 85.4 %; PLT - PLATELET COUNT 342 10^3/uL (130-450); RED BLOOD COUNT 2.88 10^6/uL (4.20-5.40); RED CELL DISTRIBUTION WIDTH 17.2 % (12.0-15.0); WHITE BLOOD COUNT 9.9 x10^3/uL (4.8-10.8)
[2022-10-29 10:09] LABS: FOLATE 22.01 ng/mL (5.90 - >24.8)
[2022-10-29 10:18] LABS: CALCIUM 8.1 mg/dL (8.5-10.3); CREATININE 0.6 mg/dL (0.4-1.0)
[2022-10-29] MEDS: polyethylene glycoL 3350 17 GM PACKET PO SCH (10:20)
[2022-10-29 10:30] LABS: % IRON SATURATION 10 % (20-50); IRON 27 ug/dL (28-170); TOTAL IRON BINDING CAPACITY 265 ug/dL (250-450); TRANSFERRIN 189 mg/dL (192-382)
[2022-10-29] MEDS: guaiFENesin 600 MG TABLET PO SCH ×2 (10:30→21:31)
[2022-10-29] MEDS: AZITHROMYCIN 250 MG TABLET PO SCH (10:30)
[2022-10-29] MEDS: carvediloL 12.5 MG TABLET PO SCH ×2 (10:30→21:31)
[2022-10-29] MEDS: HYDROXYCHLOROQUINE 200 MG TABLET PO SCH ×2 (10:31→21:31)
[2022-10-29] MEDS: NYSTATIN POWDER 15 GM TOP SCH ×2 (10:31→21:31)
[2022-10-29] MEDS: SERTRALINE 50 MG TABLET PO SCH (10:31)
[2022-10-29] MEDS: PANTOPRAZOLE 40 MG TABLET PO SCH (10:31)
--- NOTE | 2022-10-29 16:33 | PROVIDER PROGRESS NOTE ---
Assessment/Plan - Problem List (1) Symptomatic anemia Assessment/Plan: She needed several units of blood on presentation to the ED then hemoglobin stabilized around 8-9. Her hemoglobin then dropped to 6.9 several days ago, despite getting IV diuretics. We therefore stopped her Eliquis, which had been resumed 4 days previously, when it was thought that she had stopped having a GI bleed. She got 1U of blood transfused for the Hgb of 6.9, then Hgb krish to 8.3. Since then hemoglobin is running 7.2 to 7.9 Gen Surg consulted for EGD, which she had yesterday and it only showed gastritis. General surgery felt that no colonoscopy was needed since her hemoglobin is relatively stable, suggesting no active bleed Her iron panel was done and shows very low iron stores. Normal B12 and folate start Plan: Start daily oral iron replacement Follow hemoglobin daily Target Hgb is 7.5 (2) Gastrointestinal bleed Impression: When she presented to the ED she received transfusions, was seen by general surgeon Dr Elvis llamas and plan was for outpatient EGD. Her apixaban was r esumed when the GI bleeding was felt to have stopped, due to her stable hemoglobins for several days Then her Hemoglobin dropped to 6.9 several days ago, despite being on iv BID diuretic. We then stopped her Eliquis. After the last transfusion, hemoglobin up to 8.3, now Hgb running 7.2 - 7.9. WE ordered empiric Protonix 40 IV twice daily Gen Surg consulted for EGD, which she had yesterday and it only showed gastritis. After the EGD yesterday, General surgery felt that no colonoscopy was needed since her hemoglobin is relatively stable, suggesting no active bleed Plan: Advancing her diet We will stop the empirically started IV twice daily Protonix Qualifiers: GI bleed type/associated pathology: unspecified gastrointestinal hemorrhage type Qualified Code(s): K92.2 - Gastrointestinal hemorrhage, unspecified (3) Acute respiratory failure with hypoxia Since developing CHF after blood transfusions were given, she has needed supplemental O2. There have been continued "patchy bilateral infiltrate" seen on CT imaging and chest x-rays. It is unclear if this is all edema or if there is some inflammation or infection. Plan: Will continue with O2 supplemental to keep saturations greater than 90% Patient will need an oximetry walk test on the day of discharge to see if she needs home O2. We are continuing to treat her volume overload with iv diuretics. Will change to po dosing tomorrow We also changed her antibx coverage empirically to treat for atypical pneumonia using Zithromax po. Will continue Mucinex. (4) Acute on chronic diastolic CHF (congestive heart failure) Impression: She has had shortness of breath with activity, has been on 2L of O2 NC. We think her SOB is related to heart failure and an atypical PNA. Pulmonary embolism was ruled out with a CTA of chest. That CT chest reported scattered opacities c/w infection, but she had no WBC elevation. Troponins were negative for acute MN earlier this hospitalization as well Echo was done several days ago that showed preserved LVEF of 60 to 65%. Patient told me several days ago that because of her remote radiation to the left breast, "the outside of her heart has thickening", according to her car diologist. 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 The last CXR continues to report bilateral patchy infiltrates Plan: continue diuresis Will change iv to po diuretic dosing tomorrow IS was re- ordered, given the bilateral atelectasis reported on last last CT chest Qualifiers: Heart failure type: diastolic Heart failure chronicity: acute Qualified Code(s): I50.31 - Acute diastolic (congestive) heart failure (5) Abn CXR Because of her worsened cough and a recent fever, another chest x-ray was done that continues to report bilateral patchy infiltrates. Plan: IS was re- ordered given the bilateral atelectasis reported on last CT chest Will continue Mucinex. We will give a course of oral Zithromax, 500 mg today then 250 mg daily x4 days. Will change to po diuretics to hopefully discharge her soon. (6) Afib Impression: Currently rate is fairly well controlled on her home med of Carvedilol 25 bid, no other HR slowing meds. HR occaisonally rises over 100 [id number] score =5 and she was on Xarelto at home, then on Eliquis here (since Xarelto is not on the hospital formulary). We stopped the Eliquis when Hgb dropped to 6.9, suggesting bleeding again occurring. Plan: Continue coreg for rate control. She is at maximum coreg dose. Will add Diltiazem for further rate control Remain off DOAC for at least a week Qualifiers: Atrial fibrillation type: longstanding persistent Qualified Code(s): I48.11 - Longstanding persistent atrial fibrillation (7) Diarrhea This started after starting on Zithromax oral but also she has had a full course of antibiotics for her sepsis Plan: Will check stool for C. difficile. If negative will order Imodium as needed Will begin a probiotic, apparently she did not have probiotics while on Cipro for her E coli bacteremia (8) Hyponatremia Impression: This had recurred and Na was 130-134 This may be due to loop diuretic use and/or free water excess since she has not been in negative fluid balance despite getting loop diuretics. Plan: Will continue total fluid restriction (9) Hypokalemia This is related to IV diuretic use most likely, but now also has diarrhea Plan: Potassium replacement orally and will increase from 20 mEq daily to 30 mEq daily Follow BMP daily We will also check her serum magnesium and correct if low (10) Hypomagnesemia This is related to diuretic use as well as diarrhea Plan: Will add Mg suppl (11) Shoulder injury Impression: stable The patient described that she cannot "lay on her left side because of the metal arm brace" which covers her L arm, from palm to axilla. She says that the whole arm was purple from a massive hematoma and that the L shoulder is damaged from radiation that was given for her breast cancer. Even her L breast had a hematoma. She says that this happened about 3 months ago and the breast hematoma is still resolving, the arm hematoma is gone. Per spouse the plan is for shoulder joint replacement surgery. She wears this brace constantly. She says that the surgery is not yet scheduled. She denies excessive pain but says she cannot lay on that left side. Plan: no specific treatment Perhaps these large hematomas, of the left breast and entire left arm, where the cause of her severe anemia Qualifiers: Encounter type: initial encounter Laterality: left Qualified Code(s): S49.92XA - Unspecified injury of left shoulder and upper arm, initial encounter (12) Lupus Plan: We are continuing her Plaquenil. (13) Septic shock Impression: Resolved. UTI caused septic shock. Vital signs stable now, no temperature in last couple of days. Plan: Abx started 10/20/22 are ending today. (14) E coli bacteremia She has completed a course of treatment - Current Meds Current Meds: Current Medications Generic Name Dose Route Start Last Admin Trade Name Freq PRN Reason Stop Dose Admin Acetaminophen 1,000 mg 10/16/22 15:54 10/29/22 07:45 Acetaminophen 500 Mg Tablet PO 1,000 mg Q6H PRN Administration Mild Pain Or Fever>38c(100.4f) Albuterol/Ipratropium 3 ml 10/19/22 22:20 10/27/22 19:45 Ipratropium/Albuterol 3 Ml Neb INH 3 ml Q4HR PRN Administration Shortness of Air/Wheezing Atorvastatin Calcium 10 mg 10/26/22 21:00 10/28/22 20:20 Atorvastatin 10 Mg Tablet PO 10 mg HS BRITT Administration Azithromycin 250 mg 10/28/22 09:00 10/29/22 10:30 Azithromycin 250 Mg Tablet PO 10/31/22 23:55 250 mg DAILY BRITT Administration Bumetanide 2 mg 10/25/22 12:00 10/29/22 06:18 Bumetanide 1 Mg/4 Ml Vial IVP 2 mg DAILY BRITT Administration Carvedilol 25 mg 10/16/22 21:00 10/29/22 10:30 Carvedilol 12.5 Mg Tablet PO 25 mg BID BRITT Administration Guaifenesin 600 mg 10/26/22 21:00 10/29/22 10:30 Guaifenesin 600 Mg Tablet PO 600 mg BID BRITT Administration Hydralazine HCl 10 mg 10/19/22 22:56 10/21/22 08:30 Hydralazine Inj 20 Mg/Ml Vial IVP 10 mg Q6HR PRN Administration Hypertensive Emergency Hydroxychloroquine Sulfate 200 mg 10/20/22 09:00 10/29/22 10:31 Hydroxychloroquine 200 Mg Tablet PO 200 mg BID BRITT Administration Promethazine HCl 25 mg/ Sodium 51 mls @ 100 mls/hr 10/20/22 18:22 10/22/22 17:22 Chloride IV Infused Q6H PRN Infusion Nausea / Vomiting Lorazepam 2 mg 10/23/22 00:24 10/28/22 20:23 Lorazepam 1 Mg Tablet PO 2 mg HS PRN Administration Anxiety Nystatin 1 applic 10/20/22 21:00 10/29/22 10:31 Nystatin Powder 15 Gm TOP 1 applic BID BRITT Administration Ondansetron HCl 4 mg 10/16/22 15:54 10/23/22 17:36 Ondansetron 4 Mg/2 Ml Vial IVP 4 mg Q6HR PRN Administration Nausea / Vomiting Pantoprazole Sodium 40 mg 10/27/22 21:00 10/29/22 10:31 Pantoprazole 40 Mg Tablet PO 40 mg BID BRITT Administration Polyethylene Glycol 17 gm 10/23/22 12:00 10/29/22 10:20 Polyethylene Glycol 3350 17 Gm Packet PO Not Given DAILY BRITT Potassium Chloride 20 meq 10/27/22 16:00 10/29/22 07:46 Potassium Chloride 10 Meq Capsule PO 20 meq DAILYWM BRITT Administration Promethazine HCl 25 mg 10/20/22 18:22 10/21/22 20:19 Promethazine 25 Mg Tablet PO 25 mg Q6HR PRN Administration Nausea / Vomiting Sertraline HCl 100 mg 10/17/22 09:00 10/29/22 10:31 Sertraline 50 Mg Tablet PO 100 mg DAILY BRITT Administration Sodium Chloride 10 ml 10/19/22 22:24 10/25/22 10:54 Sodium Chloride Flush 0.9% 10 Ml Syringe IVP 10 ml PRN PRN Administration NEEDED PER PROVIDER ORDERS Sodium Chloride 10 ml 10/20/22 01:00 10/29/22 10:31 Sodium Chloride Flush 0.9% 10 Ml Syringe IVP 10 ml 0100,0900,1700 BRITT Administration Sodium Chloride 20 ml 10/23/22 01:33 10/28/22 06:18 Sodium Chloride Flush 0.9% 10 Ml Syringe IVP 20 ml PRN PRN Administration After Blood Draw - Lab Result Fish Bone Diagrams: 10/29/22 09:05 10/29/22 09:05 - Additional Planning My Orders: My Active Orders 10/29/22 17:00 Ferrous Gluconate [Fergon] 324 mg PO DAILYWM 10/30/22 05:00 BMP - BASIC METABOLIC PANEL [CHEM] DAILYLAB CBC - COMP BLD CT W/AUTO DIFF [HEME] DAILYLAB MAGNESIUM [CHEM] DAILYLAB Subjective - Subjective Patient Reports: Feeling Better (Less short of breath but has new watery diarrhea for the past 2 days), Diarrhea (Has new watery diarrhea for the past 2- day) Objective Vital Signs: Vital Signs - 24 hr 10/28/22 10/28/22 10/29/22 19:48 20:21 04:02 Temperature 36.3 C L 36.5 C Heart Rate [ 90 93 Brachial] Respiratory 22 Rate Blood Pressure 111/64 116/78 [Right Brachial artery] O2 Saturation 92 If not protocol 1 1 : Oxygen Flow, liters/minute 10/29/22 10/29/22 10/29/22 06:05 08:00 15:45 Temperature 37.0 C 36.5 C Heart Rate [ 107 H 77 Brachial] Respiratory 22 20 24 Rate Blood Pressure 141/90 H 128/83 H 109/73 [Right Brachial artery] O2 Saturation 94 94 98 If not protocol 1 1 1 : Oxygen Flow, liters/minute Oxygen O2 Source Nasal cannula Oxygen Flow Rate 2 I&O (Last 24 Hrs): Intake and Output Totals x24h 10/27/22 10/28/22 10/29/22 23:59 23:59 23:59 Intake Total 1110 1482 760 Output Total 731 191 5537 Balance 610 1082 -790 General: Alert, Oriented x3 HEENT: Mucous membr. moist/pink Neck: Supple, No JVD Neuro: Alert, Non Focal, Other (Hand tremor) Cardiovascular: No murmurs Respiratory: No respiratory distress, Breath sounds nml Abdomen: Normal bowel sounds, Soft Extremities: No edema (Trace pedal edema) - Results Results: Laboratory Results WBC 9.9 x10^3/uL (4.8-10.8) 10/29/22 09:05 RBC 2.88 10^6/uL (4.20-5.40) L 10/29/22 09:05 Hgb 7.8 g/dL (12.0-16.0) L 10/29/22 09:05 Hct 25.3 % (37.0-47.0) L 10/29/22 09:05 MCV 87.8 fL (81.0-99.0) 10/29/22 09:05 MCH 27.1 pg (27.0-31.0) 10/29/22 09:05 MCHC 30.8 g/dL (32.0-36.0) L 10/29/22 09:05 RDW 17.2 % (12.0-15.0) H 10/29/22 09:05 Plt Count 342 10^3/uL (130-450) 10/29/22 09:05 MPV 10.3 fL (7.9-10.8) 10/29/22 09:05 Neut # (Auto) 8.4 10^3/uL (1.5-6.6) H 10/29/22 09:05 Lymph # (Auto) 0.5 10^3/uL (1.5-3.5) L 10/29/22 09:05 [place] # (Auto) 0.5 10^3/uL (0.0-1.0) 10/29/22 09:05 Eos # (Auto) 0.2 10^3/uL (0.0-0.7) 10/29/22 09:05 Baso # (Auto) 0.0 10^3/uL (0.0-0.1) 10/29/22 09:05 Absolute Nucleated RBC 0.00 x10^3/uL 10/29/22 09:05 Total Counted 100 10/26/22 05:50 Band Neuts % (Manual) 0 % (0-10) 10/26/22 05:50 Abnorm Lymph % (Manual) 1 % 10/26/22 05:50 Metamyelocytes % 1 % (-0) H 10/26/22 05:50 Myelocytes % 3 % (-0) H 10/26/22 05:50 Nucleated RBC % 0.0 /100WBC 10/29/22 09:05 Neutrophils # (Manual) 8.3 10^3/uL (1.5-6.6) H 10/26/22 05:50 Lymphocytes # (Manual) 1.0 10^3/uL (1.5-3.5) L 10/26/22 05:50 Monocytes # (Manual) 0.2 10^3/uL (0.0-1.0) 10/26/22 05:50 Eosinophils # (Manual) 0.3 10^3/uL (0-0.7) 10/26/22 05:50 Basophils # (Manual) 0.0 10^3/uL (0-0.1) 10/26/22 05:50 Differential Comment MANUAL DIFFERENTIAL 10/26/22 05:50 WBC Morphology NORMAL APPEARANCE (NORMAL) 10/26/22 05:50 Platelet Estimate NORMAL (130-450,000) (NORMAL) 10/26/22 05:50 Platelet Morphology NORMAL APPEARANCE (NORMAL) 10/26/22 05:50 RBC Morph Micro Appear 2+ HYPOCHROMASIA (NORMAL) 1+ STOMATOCYTES (NORMAL) 10/26/22 05:50 RBC Morph Micro Appear 2+ HYPOCHROMASIA (NORMAL) 1+ STOMATOCYTES (NORMAL) 10/26/22 05:50 ESR 24 mm/Hr (0-30) 10/20/22 08:06 PT 18.7 secs (9.9-12.6) H 10/16/22 15:56 INR 1.7 (0.8-1.2) H 10/16/22 15:56 VBG pH 7.406 (7.31-7.41) 10/25/22 05:40 VBG pCO2 37.4 mmHg (41-51) L 10/19/22 05:59 VBG pO2 92.0 mmHg (25-47) H 10/19/22 05:59 VBG HCO3 28.3 mmol/L (23-28) H 10/19/22 05:59 VBG Total CO2 29.5 mmol/L (24-29) H 10/19/22 05:59 VBG O2 Saturation 97.5 % (60-80) H 10/19/22 05:59 VBG Base Excess 4.9 mmol/L (-2 - +2) H 10/19/22 05:59 Ionized Calcium 1.16 mmol/L (1.15-1.33) 10/25/22 05:40 Sodium 134 mmol/L (135-145) L 10/29/22 09:05 Potassium 3.0 mmol/L (3.5-5.0) L 10/29/22 09:05 Chloride 93 mmol/L (101-111) L 10/29/22 09:05 Carbon Dioxide 30 mmol/L (21-32) 10/29/22 09:05 Anion Gap 11.0 (6-13) 10/29/22 09:05 BUN 15 mg/dL (6-20) 10/29/22 09:05 Creatinine 0.6 mg/dL (0.4-1.0) 10/29/22 09:05 Estimated GFR (MDRD) 97 (>89) 10/29/22 09:05 Glucose 95 mg/dL (70-100) 10/29/22 09:05 Lactic Acid 1.2 mmol/L (0.5-2.2) 10/20/22 06:20 Calcium 8.1 mg/dL (8.5-10.3) L 10/29/22 09:05 Phosphorus 3.0 mg/dL (2.5-4.6) 10/23/22 05:22 Magnesium 1.6 mg/dL (1.7-2.8) L 10/28/22 04:30 Iron 27 ug/dL (28-170) L 10/29/22 09:05 TIBC 265 ug/dL (250-450) 10/29/22 09:05 % Saturation 10 % (20-50) L 10/29/22 09:05 Transferrin 189 mg/dL (192-382) L 10/29/22 09:05 Total Bilirubin 1.2 mg/dL (0.2-1.0) H 10/23/22 05:22 AST 42 IU/L (10-42) 10/23/22 05:22 ALT 34 IU/L (10-60) 10/23/22 05:22 Alkaline Phosphatase 85 IU/L (42-121) 10/23/22 05:22 Troponin I High Sens 75.6 ng/L (2.3-14.8) H* 10/20/22 08:06 C-Reactive Protein 18.0 mg/dL (0-1.0) H 10/20/22 08:06 B-Natriuretic Peptide 917 pg/mL (5-100) H 10/19/22 05:59 Total Protein 4.6 g/dL (6.7-8.2) L 10/23/22 05:22 Albumin 2.2 g/dL (3.2-5.5) L 10/23/22 05:22 Globulin 2.4 g/dL (2.1-4.2) 10/23/22 05:22 Albumin/Globulin Ratio 0.9 (1.0-2.2) L 10/23/22 05:22 Lipase 33 U/L (22-51) 10/16/22 03:57 Vitamin B12 990 pg/mL (180-914) H 10/29/22 09:05 Folate 22.01 ng/mL (5.90 - >24.8) 10/29/22 09:05 Nasal Adenovirus (PCR) NOT DETECTED 10/19/22 04:40 Nasal B. parapertussis DNA (PCR) NOT DETECTED 10/19/22 04:40 Nasal Coronavir 229E PCR NOT DETECTED 10/19/22 04:40 Nasal Coronavir HKU1 PCR NOT DETECTED 10/19/22 04:40 Nasal Coronavir NL63 PCR NOT DETECTED 10/19/22 04:40 Nasal Coronavir OC43 PCR NOT DETECTED 10/19/22 04:40 Nasal Enterovir/Rhinovir PCR NOT DETECTED 10/19/22 04:40 Nasal Influenza B PCR NOT DETECTED 10/19/22 04:40 Nasal Influenza A PCR NOT DETECTED 10/19/22 04:40 Nasal Parainfluen 1 PCR NOT DETECTED 10/19/22 04:40 Nasal Parainfluen 2 PCR NOT DETECTED 10/19/22 04:40 Nasal Parainfluen 3 PCR NOT DETECTED 10/19/22 04:40 Nasal Parainfluen 4 PCR NOT DETECTED 10/19/22 04:40 Nasal RSV (PCR) NOT DETECTED 10/19/22 04:40 Nasal Screen MRSA (PCR) NEGATIVE (NEGATIVE) 10/20/22 13:13 Nasal B.pertussis DNA PCR NOT DETECTED 10/19/22 04:40 Nasal C.pneumoniae (PCR) NOT DETECTED 10/19/22 04:40 Matthieu Human Metapneumo PCR NOT DETECTED 10/19/22 04:40 Nasal M.pneumoniae (PCR) NOT DETECTED 10/19/22 04:40 Nasal SARS-CoV-2 (PCR) NOT DETECTED 10/19/22 04:40 Last Dose Date 10/20/22 10/23/22 09:55 Last Dose Time 204910/23/22 09:55 Vancomycin Trough 3.9 ug/mL (10.0-20.0) L 10/23/22 09:55 SARS-CoV-2 (PCR) NOT DETECTED 10/16/22 17:33 Blood Type O POSITIVE 10/26/22 09:25 Blood Type Recheck O POSITIVE 10/16/22 04:10 Antibody Screen NEGATIVE 10/26/22 09:25 Crossmatch IS Only See Detail 10/26/22 09:25 Sepsis Event Note (H) - Evaluation Current Stage of Sepsis: Sepsis (Continues to require norepinephrine for to keep MAP>65) - Sepsis Criteria Sepsis Criteria: Recorded Temperature greater than 38.3C or Less than 36C, Recorded Heart Rate greater than 90 bpm, SBP less than 90 mmHg
[2022-10-29] MEDS ORDERED: CALCIUM CARBONATE CHEW 500 MG TABLET PO PRN (16:35)
[2022-10-29] MEDS: FERROUS GLUCONATE 324 MG TABLET PO SCH (17:11)
[2022-10-29] MEDS: SACCHAROMYCES BOULARDII 250 MG CAPSULE PO SCH (17:13)
[2022-10-29] MEDS: ATORVASTATIN 10 MG TABLET PO SCH (21:29)
[2022-10-29] MEDS: diltiaZEM 30 MG TABLET PO SCH (21:29)
[2022-10-29] MEDS: LORazepam 1 MG TABLET PO PRN (21:30)
[2022-10-30] MEDS: SODIUM CHLORIDE FLUSH 0.9% 10 ML SYRINGE IVP SCH ×2 (00:41→08:05)
[2022-10-30] MEDS: ACETAMINOPHEN 500 MG TABLET PO PRN (04:46)
[2022-10-30] MEDS: SODIUM CHLORIDE FLUSH 0.9% 10 ML SYRINGE IVP PRN ×2 (04:56)
[2022-10-30 05:09] LABS: BASOPHILS % (AUTO) 0.4 %; EOSINOPHILS # (AUTO) 0.2 10^3/uL (0.0-0.7); EOSINOPHILS % (AUTO) 2.6 %; HCT - HEMATOCRIT 25.2 % (37.0-47.0); HGB - HEMOGLOBIN 7.8 g/dL (12.0-16.0); LYMPHOCYTES # (AUTO) 0.9 10^3/uL (1.5-3.5); LYMPHOCYTES % (AUTO) 9.4 %; MEAN CORPUSCULAR HEMOGLOBIN 27.6 pg (27.0-31.0); MEAN PLATELET VOLUME 10.1 fL (7.9-10.8); MONOCYTES # (AUTO) 0.5 10^3/uL (0.0-1.0); MONOCYTES % (AUTO) 5.8 %; NEUTROPHILS # (AUTO) 7.4 10^3/uL (1.5-6.6); NEUTROPHILS % (AUTO) 80.4 %; PLT - PLATELET COUNT 371 10^3/uL (130-450); RED BLOOD COUNT 2.83 10^6/uL (4.20-5.40); WHITE BLOOD COUNT 9.3 x10^3/uL (4.8-10.8)
[2022-10-30 05:17] LABS: CALCIUM 8.1 mg/dL (8.5-10.3); CREATININE 0.6 mg/dL (0.4-1.0); MAGNESIUM 1.6 mg/dL (1.7-2.8)
[2022-10-30] MEDS ORDERED: POTASSIUM CHLORIDE 10 MEQ CAPSULE PO SCH (08:00)
[2022-10-30] MEDS: SERTRALINE 50 MG TABLET PO SCH (08:02)
[2022-10-30] MEDS: SACCHAROMYCES BOULARDII 250 MG CAPSULE PO SCH (08:02)
[2022-10-30] MEDS: carvediloL 12.5 MG TABLET PO SCH (08:02)
[2022-10-30] MEDS: diltiaZEM 30 MG TABLET PO SCH (08:03)
[2022-10-30] MEDS: AZITHROMYCIN 250 MG TABLET PO SCH (08:03)
[2022-10-30] MEDS: HYDROXYCHLOROQUINE 200 MG TABLET PO SCH (08:03)
[2022-10-30] MEDS: FERROUS GLUCONATE 324 MG TABLET PO SCH (08:03)
[2022-10-30] MEDS: guaiFENesin 600 MG TABLET PO SCH (08:04)
[2022-10-30] MEDS: NYSTATIN POWDER 15 GM TOP SCH (08:05)
--- NOTE | 2022-10-30 08:13 | Discharge Plan ---
Discharge Plan Problem Reviewed?: Yes Disposition: Home Health Service Condition: Stable Prescriptions: Diltiazem HCl [Diltiazem 12Hr ER] 60 mg PO DAILY #30 cap Ferrous Gluconate [Fergon] 324 mg PO DAILYWM #30 tab Furosemide [Lasix] 40 mg PO BID #100 tablet Azithromycin [Zithromax] 250 mg PO DAILY #1 tab Diet: Low Sodium Activity Restrictions: Activity as Tolerated Shower Restrictions: No Assistance Devices: Walker Weight Bearing: Full Weight Health Concerns: You were admitted to the hospital to treat a severe anemia, also you had an infection in your bloodstream from a urinary tract infection which was treated, you also went into congestive heart failure and needed aggressive diuresis, and you were treated for an atypical pneumonia. You were tested to see if you need new home oxygen and you do not. You are being discharged home and need more strengthening, therefore a referral was sent for a Home Health Agency to come and give you Physical Therapy, Occupational Therapy and provide a Bath Aide Please resume all your usual pre-hospital medications, except DO NOT TAKE THE BLOOD THINNER XARELTO FOR 2 WEEKS. There are several NEW medications that you need now: Cardizem which helps decrease the heart rate to prevent rapid atrial fibrillation. A daily iron replacement tablet for your Iron deficiency anemia. One more day of antibiotic for the pneumonia. These new medications were electronically sent to your [facility] pharmacy in [place] Please see your Primary Care Provider in the next 1 to 2 weeks for a hospital follow-up visit. You may still need future evaluation to see where your bleeding is coming from, in your intestinal tract. Your provider will also tell you if it is safe to resume taking Xarelto. In addition, please discuss if you can change your blood thinner from Xarelto to Eliquis, since Xarelto is associated with more GI bleeding. Plan of Treatment: As above. Care Goals: Improvement in symptoms and stabilization are the goals. Assessment: The patient and understand and are agreeable with the plan. Additional Instructions or Follow Up instructions: If you have new or worsening symptoms, call your PCP or your specialist doctors for advice, or come to the ER. Follow-Up Care: Home Health - PT, Home Health - OT No Smoking: If you smoke, Please STOP! Call for help. Follow-up with: SAFIA GRIFFIN [Primary Care Provider] -
[2022-10-30] MEDS: polyethylene glycoL 3350 17 GM PACKET PO SCH (08:22)
[2022-10-30] MEDS: POTASSIUM CHLOR 10 MEQ/100 ML 10 MEQ/100 ML BAG IV SCH ×4 (08:26→11:17)
[2022-10-30] MEDS ORDERED: BIFIDOBACTERIUM INFANTIS 10.5 MG PO SCH (09:00)
[2022-10-30] MEDS ORDERED: BUMETANIDE 1 MG TABLET PO SCH (09:00)
[2022-10-30] MEDS ORDERED: FUROSEMIDE 40 MG TABLET PO SCH (09:00)
--- NOTE | 2022-10-30 12:04 | DISCHARGE SUMMARY ---
Discharge Summary Admit Date: 10/19/22 Discharge Date: 10/30/22 Discharging Provider: Dr Anna Santamaria Primary Care Provider: Dr Adrián Bennett Code Status: Attempt Resuscitation Condition at Discharge: Stable Discharge Disposition: Home Health Service - DIAGNOSES Admission Diagnoses: (1) Acute hypoxemic respiratory failure (2) CHF exacerbation (3) Hypertension (4) Afib (5) Gastrointestinal bleed (6) Anemia - HOSPITAL COURSE Hospital Course: (1) Acute on chronic diastolic CHF (congestive heart failure) After developing CHF after blood transfusions were given, she needed supplemental O2. Pulmonary embolism was ruled out with a CTA of chest. That CT chest reported scattered opacities c/w infection, but she had no WBC elevation. Troponins were negative for acute PR. Echo was done that showed preserved LVEF of 60 to 65%. Patient told me that because of her remote radiation to the left breast, "the outside of her heart has thickening", according to her first press operator. I presumed this might mean she has restrictive pericarditis which behaves like diastolic heart failure. We continued her cardiac meds and ordered iv diuresis, then eventually transitioned to po diuretics. (2) Septic shock On Day 2 of hospitalization she dropped her blood pressure, complained of chest pain, was diaphoretic, very pale, but alert. She was transferred to the ICU. EKG was without change. Hemoglobin was stable and she did not have evidence of an acute GI bleed. In the ICU, her systolic BP dropped as low as 54 systolic. Anesthesia placed a central line and we started her on broad-spectrum antibiotics in case she was septic, with source unknown. Chest x-ray without new pneumonia. UA was negative. Lactic acid was acceptable. But a few hours later the STAT blood cultures became positive for gram-negative bacilli. She was treated, stabilized and moved out of the ICU a few days later. She was quite deconditioned from a long hospital stay. She started to work with PT and OT. A referral was sent for home PT, OT and a bath aide from a Home Health agency. (3) E coli bacteremia The blood cx x2 grew E coli. She received empiric iv antibiotics starting 10/20/22, changed to iv Cipro when sens came back and then finished a course using po Cipro. Her elevated WBC responded. (4) Acute respiratory failure with hypoxia Since developing CHF after blood transfusions were given, she needed supplemental O2. In addition to being in heart failure clinically, there were persistent "patchy bilateral infiltrates" seen on CT imaging and chest x-rays for many days. She was continued on iv diuretics, then was empirically treated for atypical pneumonia using Zithromax po and Mucinex and using Incentive Spirometry helped. She was weaned down to room air 2 days before discharge. She had an oximetry walk test on the day of discharge, and did not need supplemental O2 ordered. (5) Abnormal CXR Because of a worsened cough, fever, and persistent hypoxia, repeat chest x-rays and CT chest were done that continued to report persistent bilateral patchy infiltrates. Exam at that time had significant bilateral rales. She was empirically treated for atypical pneumonia using Zithromax po and using Incentive Spirometry was re- ordered, given the bilateral atelectasis reported on CT chest. (6) Symptomatic anemia She needed several units of blood on presentation to the ED then hemoglobin stabilized around 8-9. Her hemoglobin then dropped to 6.9 several days later, despite getting IV diuretics. We therefore stopped her Eliquis, which had been resumed 4 days previously, when it was thought that she had stopped having a GI bleed. She got 1 more U of blood, then Hgb krish to 8.3 and then ran 7.2 to 7.9. Gen Surg was reconsulted, did an EGD, and it only showed gastritis. General surgery felt that no colonoscopy was needed since her hemoglobin then remained relatively stable, suggesting no active bleed. Her iron panel was done and shows very low iron stores. Normal B12 and folate. She was restarted on oral iron t ablets and discharged on this. (7) Gastrointestinal bleed When she presented to the ED, dark, [place] (+) stool was present and she received blood transfusions, was seen by general surgeon Dr Elvis llamas and plan was for outpatient EGD. Eliquis was started when the GI bleeding was felt to have stopped, due to her stable hemoglobins for several days. Then her Hemoglobin mary pped to 6.9 several days later. We then stopped her Eliquis, ordered empiric Protonix 40 IV twice daily, and Gen Surg was re-consulted for an EGD. Dr Black prerformed the EGD and only gastritis was found. Protonix was stooped. General surgery felt that no colonoscopy was needed since her hemoglobin then remained relatively stable, suggesting no active bleed. She was discharged with advise to not take her Xarelto for 2 weeks. She was advised to see her PCP to make sure i t was safe to restart Xarelto, and to consider changing Xarelto to Eliquis, which has a lower GI bleed rate associated with it. (8) Afib Her heart rate was fairly well controlled on her home med of Carvedilol 25 bid, but was on no other HR slowing meds. HR occasionally krish over 100, even when not anemic and not in distress. Therefore Cardizem was added and she was disc harged on new Cardizem CD 60 mg daily. Her [id number] score =5 and she was on Xarelto at home, then briefly on Eliquis here (since Xarelto is not on the hospital formulary). She was discharged with advise to not take her Xarelto for 2 weeks, and to see her PCP to make sure it was safe to restart Xarelto, and to consider changing Xarelto to Eliquis, which has a lower GI bleed rate associated with it. (9) Hyponatremia Na was 130-134, possibly from loop diuretic use and/or free water excess. She was on a free water restriction diet order. (10) Hypokalemia This was related to IV diuretic use most likely, then later from diarrhea. K was replaced. (11) Hypomagnesemia This was related to IV diuretic use most likely, then later from diarrhea. Her Mg was replaced. (12) C. diff diarrhea Diarrhea started the day before discharge, after starting Zithromax oral. A stool specimen was only available and was sent on the day of discharge, and results were not available until after the patient left. It was positive for C. difficile. The patient was prescribed to get Vancomycin 125 mg p.o. 4 times daily for 10 days. I called the at home and gave him the message about her positive C. difficile and need for oral Vanco. (13) Shoulder injury We noted that her metal arm brace covers her L arm, from palm to axilla. She says that the whole arm was purple from a massive hematoma and that even her L breast had a hematoma. The L shoulder was damaged from radiation that was given for her breast cancer. She says that this happened about 3 months ago and the breast hematoma is still resolving, the arm hematoma is gone. Per spouse the p chip is for shoulder joint replacement surgery which is not yet scheduled. She denies excessive pain but says she cannot lay on that left side. Perhaps these large hematomas, of the left breast and entire left arm, where part of the cause of her severe anemia (14) Lupus We continued her Plaquenil. - ALLERGIES Allergies/Adverse Reactions: Allergies Allergy/AdvReac Type Severity Reaction Status Date / Time prochlorperazine edisylate * Allergy Severe Unknown Verified 10/22/22 16:01 [From Compazine] prochlorperazine Allergy Unknown Verified 10/16/22 04:07 [From Compazine] prochlorperazine maleate * Allergy Unknown Verified 10/16/22 04:07 [From Compazine] codeine AdvReac Severe Emesis Verified 10/22/22 16:05 hydrocodone AdvReac Nausea Verified 10/22/22 16:30 monosodium glutamate AdvReac Emesis Verified 10/23/22 11:38 oxycodone AdvReac Emesis Verified 10/22/22 15:59 - MEDICATIONS Home Medications: Ambulatory Orders Medication Instructions Recorded Confirmed Candesartan Cilexetil 1 tab PO DAILY 04/10/17 10/17/22 Hydroxychloroquine [Plaquenil] 200 mg PO BID 04/10/17 10/17/22 Omeprazole [PriLOSEC] 1 tab PO DAILY 04/10/17 10/17/22 Potassium Chloride 2.5 tab PO DAILY 04/10/17 10/17/22 Sertraline [Zoloft] 100 mg PO DAILY 04/10/17 10/17/22 carvediloL [Carvedilol] 25 mg PO BID 04/10/17 10/20/22 HYDROmorphone [Dilaudid] 1 - 2 tab PO Q4H PRN #25 tablet 08/15/22 10/17/22 Acetaminophen [Tylenol] 1 tab PO BID PRN 10/20/22 10/20/22 Atorvastatin [Lipitor] 1 tab PO HS 10/20/22 10/20/22 Bifidobacterium Infantis [Align] 1 tab PO DAILY 10/20/22 10/20/22 Calcium Carbonate [Tums (Calcium 2 tab PO DAILY PRN 10/20/22 10/20/22 Carbonate 500mg)] Cholecalciferol [Vitamin D3] 1 cap PO DAILY 10/20/22 10/20/22 LORazepam [Lorazepam] 1 tab PO HS PRN 10/20/22 10/20/22 Magnesium Hydroxide [Milk of 10 ml PO DAILY PRN 10/20/22 10/20/22 Magnesia] Multivitamin [Theragran] 1 tab PO DAILY 10/20/22 10/20/22 Naloxone HCl Nasal [Narcan Nasal] 1 spray HELIO PRN PRN 10/20/22 10/20/22 Ondansetron Odt [Zofran Odt] 1 tab PO BID PRN 10/20/22 10/20/22 Vitamin B Complex 1 tab PO DAILY 10/20/22 10/20/22 polyethylene glycoL 3350 1 packet PO DAILY PRN 10/20/22 10/20/22 [Polyethylene Glycol 3350] Acetaminophen [Tylenol] 1,000 mg PO Q6H PRN tab 10/30/22 Azithromycin [Zithromax] 250 mg PO DAILY #1 tab 10/30/22 Diltiazem HCl [Diltiazem 12Hr ER] 60 mg PO DAILY #30 cap 10/30/22 Ferrous Gluconate [Fergon] 324 mg PO DAILYWM #30 tab 10/30/22 Furosemide [Lasix] 40 mg PO BID #100 tablet 10/30/22 Nystatin [Nystop] 1 applic TOP BID each 10/30/22 Rivaroxaban [Xarelto] 20 mg PO DAILY #30 tablet 10/30/22 10/17/22 Vancomycin [Vancocin] 125 mg PO QID 10 Days #40 cap 10/30/22 - PHYSICAL EXAM AT DISCHARGE General Appearance: positive: No acute distress, Alert Eyes Bilateral: positive: Normal inspection, EOMI ENT: positive: ENT inspection nml, No signs of dehydration Neck: positive: Nml inspection, No JVD Respiratory: positive: No respiratory distress, Breath sounds nml Cardiovascular: positive: No murmur, Irregularly irregular Abdomen: positive: Non-tender, Nml bowel sounds, No distention Skin: positive: Warm, Dry Extremities: positive: Non-tender, Other (1+ edema to mid shins. Has rheumatoid arthritic finger deformities.) Neurologic/Psychiatric: positive: Oriented x3, Motor nml, Other (Has intermittent tremor of both hands) - LABS Result Diagrams: 10/30/22 04:56 10/30/22 04:56 - DIAGNOSTIC IMAGING Diagnostic Imaging Results: Final report reviewed - SEPSIS Current Stage of Sepsis: Septic shock Possible source of Sepsis: Genitourinary Sepsis Criteria: Recorded Temperature greater than 38.3C or Less than 36C, Recorded Heart Rate greater than 90 bpm, SBP less than 90 mmHg - FOLLOW UP Follow Up: See PCP in the next 1 to 2 weeks for hospital follow-up visit. - TIME SPENT Time Spent in Discharge (Minutes): 65
[2022-10-30 13:17] VITALS: BP 111/72
== END 2022-10-30 13:45 | disposition home health service (06) | DRG 871 ==
LOC: ED 03:45 → MS3 10-18 22:21 → UNDOADMOB 10-18 22:21 → MS3 10-19 22:21 → MS2 10-19 22:22 → ICU 10-20 08:37 → OBSVTOIN 10-21 13:26 → MS2 10-23 11:23
PROVIDERS: ADMIT Internal Medicine; ATTEND Internal Medicine
PROC: 30243N1 Transfusion of Nonautologous Red Blood Cells into Central Vein, Percutaneous Approach (ICD-10-PCS; 2022-10-26)
PROC: 0DB78ZX Excision of Stomach, Pylorus, Via Natural or Artificial Opening Endoscopic, Diagnostic (ICD-10-PCS; principal; 2022-10-28 13:00)
DX: K92.2 Gastrointestinal hemorrhage, unspecified (principal); A41.51 Sepsis due to Escherichia coli [E. coli]; I48.91 Unspecified atrial fibrillation; R53.1 Weakness; D64.9 Anemia, unspecified; I50.33 Acute on chronic diastolic (congestive) heart failure; J81.1 Chronic pulmonary edema; Z20.822 Contact with and (suspected) exposure to COVID-19; R77.8 Other specified abnormalities of plasma proteins; J95.87 Transfusion-associated dyspnea (TAD); J96.01 Acute respiratory failure with hypoxia; I95.89 Other hypotension; R91.8 Other nonspecific abnormal finding of lung field; R65.21 Severe sepsis with septic shock; J18.9 Pneumonia, unspecified organism; I50.31 Acute diastolic (congestive) heart failure; K29.71 Gastritis, unspecified, with bleeding; J98.11 Atelectasis; E87.1 Hypo-osmolality and hyponatremia; A04.72 Enterocolitis due to Clostridium difficile, not specified as recurrent; J90 Pleural effusion, not elsewhere classified; N39.0 Urinary tract infection, site not specified; I48.11 Longstanding persistent atrial fibrillation; D50.9 Iron deficiency anemia, unspecified; I11.0 Hypertensive heart disease with heart failure; E87.6 Hypokalemia; E83.42 Hypomagnesemia; M32.9 Systemic lupus erythematosus, unspecified; I25.10 Atherosclerotic heart disease of native coronary artery without angina pectoris; F41.9 Anxiety disorder, unspecified; T39.015A Adverse effect of aspirin, initial encounter; G62.9 Polyneuropathy, unspecified; G89.29 Other chronic pain; M25.511 Pain in right shoulder; I95.9 Hypotension, unspecified; R60.0 Localized edema; T45.1X5D Adverse effect of antineoplastic and immunosuppressive drugs, subsequent encounter; S40.012D Contusion of left shoulder, subsequent encounter; Z90.49 Acquired absence of other specified parts of digestive tract; Y92.9 Unspecified place or not applicable; I25.2 Old myocardial infarction; Z87.19 Personal history of other diseases of the digestive system; Z79.01 Long term (current) use of anticoagulants
CPT/HCPCS: 36415; 36430; 51701; 71045; 71275; 74176; 80048; 80053; 80202; 82272; 82330; 82607; 82746; 82803; 83540; 83605; 83690; 83735; 83880; 84100; 84132; 84466; 84484; 85014; 85018; 85025; 85610; 85651; 86140; 86850; 86900; 86901; 86920; 87040; 87086; 87150; 87181; 87493; 87633; 87635; 93005; 93306; 94640; 94761; 96365; 96366; 96367; 96368; 96375; 96376; 97116; 97164; 97168; 97530; 97535; 99284; 99285; A9270; J2060; J3370; J7040; J7120; J8499; P9016; Q0169; Q9967

== ENCOUNTER 2022-12-23 16:17 | Outpatient (CLI) | payer MEDICARE, OTHER ==
[2022-12-23 16:54] LABS: BASOPHILS % (AUTO) 0.7 %; EOSINOPHILS # (AUTO) 0.1 10^3/uL (0.0-0.7); EOSINOPHILS % (AUTO) 1.9 %; HCT - HEMATOCRIT 27.8 % (37.0-47.0); HGB - HEMOGLOBIN 8.4 g/dL (12.0-16.0); LYMPHOCYTES # (AUTO) 0.6 10^3/uL (1.5-3.5); MEAN CORPUSCULAR HEMOGLOBIN 29.1 pg (27.0-31.0); MEAN CORPUSCULAR HGB CONC 30.2 g/dL (32.0-36.0); MEAN CORPUSCULAR VOLUME 96.2 fL (81.0-99.0); MEAN PLATELET VOLUME 8.8 fL (7.9-10.8); MONOCYTES # (AUTO) 0.4 10^3/uL (0.0-1.0); MONOCYTES % (AUTO) 7.9 %; NEUTROPHILS # (AUTO) 4.2 10^3/uL (1.5-6.6); NEUTROPHILS % (AUTO) 78.3 %; PLT - PLATELET COUNT 264 10^3/uL (130-450); RED BLOOD COUNT 2.89 10^6/uL (4.20-5.40); RED CELL DISTRIBUTION WIDTH 18.3 % (12.0-15.0); WHITE BLOOD COUNT 5.4 x10^3/uL (4.8-10.8)
[2022-12-23 17:13] LABS: ALBUMIN 3.5 g/dL (3.2-5.5); ALBUMIN/GLOBULIN RATIO 1.3 (1.0-2.2); BILIRUBIN,TOTAL 0.7 mg/dL (0.2-1.0); POTASSIUM 3.6 mmol/L (3.5-5.0); TOTAL PROTEIN 6.2 g/dL (6.7-8.2)
== END 2022-12-23 16:18 | disposition home or self-care (01) ==
LOC: LAB 16:17
PROVIDERS: ATTEND Nurse Practitioner Primary Care
DX: R19.7 Diarrhea, unspecified (principal); K92.2 Gastrointestinal hemorrhage, unspecified; D72.819 Decreased white blood cell count, unspecified; I48.0 Paroxysmal atrial fibrillation; D63.8 Anemia in other chronic diseases classified elsewhere; Z86.19 Personal history of other infectious and parasitic diseases
CPT/HCPCS: 36415; 80053; 82728; 83540; 83630; 84466; 85025; 87045; 87046; 87329; 87427; 87493

== ENCOUNTER 2023-01-14 14:34 | Outpatient (CLI) | payer MEDICARE, OTHER ==
[2023-01-14 15:07] LABS: HCT - HEMATOCRIT 32.8 % (37.0-47.0); HGB - HEMOGLOBIN 10.2 g/dL (12.0-16.0)
== END 2023-01-14 14:35 | disposition home or self-care (01) ==
LOC: LAB 14:34
PROVIDERS: ATTEND Nurse Practitioner Primary Care
DX: K92.2 Gastrointestinal hemorrhage, unspecified (principal); D72.819 Decreased white blood cell count, unspecified; I48.0 Paroxysmal atrial fibrillation; D63.8 Anemia in other chronic diseases classified elsewhere; E87.6 Hypokalemia
CPT/HCPCS: 36415; 85014; 85018

== ENCOUNTER 2023-04-20 13:43 | Outpatient (CLI) | payer MEDICARE, OTHER ==
[2023-04-20 14:02] LABS: FECAL OCCULT BLOOD (FIT) POSITIVE (NEGATIVE)
== END 2023-04-20 13:44 | disposition home or self-care (01) ==
LOC: LAB 13:43
PROVIDERS: ATTEND Nurse Practitioner Primary Care
DX: D50.0 Iron deficiency anemia secondary to blood loss (chronic) (principal); Z98.890 Other specified postprocedural states; Z87.19 Personal history of other diseases of the digestive system
CPT/HCPCS: 82274

== ENCOUNTER 2023-07-06 14:58 | Outpatient (CLI) | payer MEDICARE, OTHER ==
[2023-07-06 15:13] LABS: BASOPHILS % (AUTO) 0.4 %; EOSINOPHILS # (AUTO) 0.1 10^3/uL (0.0-0.7); EOSINOPHILS % (AUTO) 0.6 %; HCT - HEMATOCRIT 24.7 % (37.0-47.0); HGB - HEMOGLOBIN 7.5 g/dL (12.0-16.0); LYMPHOCYTES # (AUTO) 0.4 10^3/uL (1.5-3.5); LYMPHOCYTES % (AUTO) 3.8 %; MEAN CORPUSCULAR HEMOGLOBIN 27.2 pg (27.0-31.0); MEAN CORPUSCULAR HGB CONC 30.4 g/dL (32.0-36.0); MEAN CORPUSCULAR VOLUME 89.5 fL (81.0-99.0); MEAN PLATELET VOLUME 8.9 fL (7.9-10.8); MONOCYTES # (AUTO) 0.6 10^3/uL (0.0-1.0); MONOCYTES % (AUTO) 5.7 %; NEUTROPHILS # (AUTO) 9.5 10^3/uL (1.5-6.6); NEUTROPHILS % (AUTO) 88.9 %; PLT - PLATELET COUNT 398 10^3/uL (130-450); RED BLOOD COUNT 2.76 10^6/uL (4.20-5.40); RED CELL DISTRIBUTION WIDTH 18.6 % (12.0-15.0); WHITE BLOOD COUNT 10.6 x10^3/uL (4.8-10.8)
[2023-07-06 15:30] LABS: ALBUMIN 2.9 g/dL (3.2-5.5); ALBUMIN/GLOBULIN RATIO 1.2 (1.0-2.2); BILIRUBIN,TOTAL 1.1 mg/dL (0.2-1.0); CALCIUM 8.6 mg/dL (8.5-10.3); CREATININE 0.9 mg/dL (0.4-1.0); CRP - C-REACTIVE PROTEIN 3.2 mg/dL (0-1.0); POTASSIUM 3.9 mmol/L (3.5-5.0); TOTAL PROTEIN 5.4 g/dL (6.7-8.2)
== END 2023-07-06 14:59 | disposition home or self-care (01) ==
LOC: LAB 14:58
PROVIDERS: ATTEND Family Medicine
DX: T84.59XD Infection and inflammatory reaction due to other internal joint prosthesis, subsequent encounter (principal); Z96.619 Presence of unspecified artificial shoulder joint
CPT/HCPCS: 36415; 80053; 85025; 85651; 86140

== ENCOUNTER 2023-07-17 17:25 | Inpatient (IN) | payer MEDICARE, OTHER ==
[2023-07-17] MEDS ORDERED: SODIUM CHLORIDE 0.9% 500 ML IV STA (17:57)
[2023-07-17] MEDS ORDERED: SODIUM CHLORIDE 0.9% 1,000 ML IV STA (18:03)
[2023-07-17 18:10] LABS: BASOPHILS % (AUTO) 0.5 %; EOSINOPHILS % (AUTO) 0.3 %; HCT - HEMATOCRIT 21.9 % (37.0-47.0); LYMPHOCYTES # (AUTO) 0.5 10^3/uL (1.5-3.5); LYMPHOCYTES % (AUTO) 6.1 %; MEAN CORPUSCULAR HEMOGLOBIN 28.4 pg (27.0-31.0); MEAN CORPUSCULAR HGB CONC 30.1 g/dL (32.0-36.0); MEAN CORPUSCULAR VOLUME 94.4 fL (81.0-99.0); MEAN PLATELET VOLUME 9.4 fL (7.9-10.8); MONOCYTES # (AUTO) 0.6 10^3/uL (0.0-1.0); MONOCYTES % (AUTO) 7.3 %; NEUTROPHILS # (AUTO) 6.5 10^3/uL (1.5-6.6); NEUTROPHILS % (AUTO) 85.4 %; PLT - PLATELET COUNT 273 10^3/uL (130-450); RED BLOOD COUNT 2.32 10^6/uL (4.20-5.40); RED CELL DISTRIBUTION WIDTH 22.5 % (12.0-15.0); WHITE BLOOD COUNT 7.6 x10^3/uL (4.8-10.8)
[2023-07-17 18:14] LABS: HGB - HEMOGLOBIN 6.6 g/dL (12.0-16.0)
[2023-07-17 18:25] LABS: ALBUMIN 3.2 g/dL (3.2-5.5); ALBUMIN/GLOBULIN RATIO 1.6 (1.0-2.2); BILIRUBIN,TOTAL 1.7 mg/dL (0.2-1.0); CALCIUM 8.9 mg/dL (8.5-10.3); POTASSIUM 3.8 mmol/L (3.5-4.5); TOTAL PROTEIN 5.2 g/dL (6.4-8.9)
--- NOTE | 2023-07-17 18:25 | XRAY Report ---
PROCEDURE: Chest 1 View X-Ray INDICATIONS: SEPSIS TECHNIQUE: One view of the chest was acquired. COMPARISON: Chest x-ray 10/26/2022 FINDINGS: Surgical changes and devices: Bilateral shoulder arthroplasties. Left axilla surgical clips. Lungs and pleura: No pleural effusions or pneumothorax. Resolution of prior diffuse airspace opacit ies. Lungs are clear. Mediastinum: Mediastinal contours appear normal. Heart size is normal. Bones and chest wall: No suspicious bony lesions. Overlying soft tissues appear unremarkable. IMPRESSION: No acute cardiopulmonary process. Reviewed by: Dharmesh Hollingsworth MD on 07/17/2023 6:24 PM PDT Approved by: Dharmesh Hollingsworth MD on 07/17/2023 6:24 PM PDT Station ID: [email or web address]
[2023-07-17 18:48] LABS: PLATELET ESTIMATE, MANUAL NORMAL (130-450,000) (NORMAL); PLATELET MORPHOLOGY NORMAL APPEARANCE (NORMAL); SLIDE REVIEW? Indicated
[2023-07-17 19:05] LABS: BILIRUBIN,URINE NEGATIVE (NEGATIVE); GLUCOSE, URINE (UA) NEGATIVE (NEGATIVE); KETONES,URINE (UA) NEGATIVE (NEGATIVE); LEUKOCYTE ESTERASE, URINE NEGATIVE (NEGATIVE); NITRITE,URINE NEGATIVE (NEGATIVE); OCCULT BLOOD,URINE NEGATIVE (NEGATIVE); PH,URINE 6.5 PH (5.0-7.5); PROTEIN,URINE NEGATIVE (NEGATIVE); UROBILINOGEN,URINE 1 (NORMAL) E.U./dL (NORMAL)
[2023-07-17 19:07] LABS: CLARITY,URINE CLEAR (CLEAR)
--- NOTE | 2023-07-17 19:13 | ED Physician Documentation ---
History of Present Illness - Stated complaint Stated Complaint: LOW BP/LETHARGIC - Chief complaint Chief Complaint: Neuro - Additonal information Additional information: 77-year-old female who has a history of atrial fibrillation anticoagulated on Xarelto, congestive heart failure, chronic anemia, history of previous GI bleed as well as lupus presents to the emergency department because her found that she had a low blood pressure today 55/43. He is found that she has been lethargic and more confused and weak than typical. He is also concerned because she has been having urinary urgency and frequency though no dysuria. The patient's complex medical history is preceded by a history of a left total shoulder joint replacement in April of this year that was complicated by subsequent infection, sepsis as well as osteomyelitis and infection of the bone. This was all treated at [facility]. Patient is currently on Levaquin and doxycycline for treatment of this arm infection. Patient reports that for the last 4 days that she has had some black stools. She is on iron though she has never had melena with iron in the past. Patient does have a history of previous GI bleed in October 2022. At that time during hospitalization an EGD was performed which showed gastritis. No colonoscopy was completed at that time. She was advised to hold her anticoagulation for 2 weeks before resuming. meds: cadesarten 32 mg daily, carvedilol 25 mg BID, plaquenil 200 mg qpm, lasix 40 mg daily, xarelto 20 mg daily, atorvastatin 20 mg daily, diltiazem 120 mg daily PD PAST MEDICAL HISTORY - Past Medical History Cardiovascular: Congestive heart failure, Hypertension, Coronary artery disease, [place], Atrial fibrillation Respiratory: Pneumonia Neuro: Migraines, Peripheral neuropathy Endocrine/Autoimmune: Systemic lupus erythematosus GI: GI bleed, Hemorrhoids, Diverticulitis NOC ANALYST: Breast cancer : None HEENT: None Psych: Anxiety Musculoskeletal: Osteoarthritis, Scoliosis, Chronic back pain Derm: None - Past Surgical History Past Surgical History: Yes General: Bowel surgery, Colonoscopy, Other Ortho: Hip replacement, Knee replacement, Shoulder arthroplasty HEENT: Cataracts - Present Medications Home Medications: Ambulatory Orders Medication Instructions Recorded Confirmed Candesartan Cilexetil 1 tab PO DAILY 04/10/17 05/27/23 Hydroxychloroquine [Plaquenil] 200 mg PO BID 04/10/17 05/27/23 Omeprazole [PriLOSEC] 1 tab PO DAILY 04/10/17 05/27/23 Potassium Chloride 2.5 tab PO DAILY 04/10/17 05/27/23 Sertraline [Zoloft] 100 mg PO DAILY 04/10/17 05/27/23 carvediloL [Carvedilol] 25 mg PO BID 04/10/17 05/27/23 HYDROmorphone [Dilaudid] 1 - 2 tab PO Q4H PRN #25 tablet 08/15/22 05/27/23 Acetaminophen [Tylenol] 1 tab PO BID PRN 10/20/22 05/27/23 Atorvastatin [Lipitor] 1 tab PO HS 10/20/22 05/27/23 Bifidobacterium Infantis [Align] 1 tab PO DAILY 10/20/22 05/27/23 Calcium Carbonate [Tums (Calcium 2 tab PO DAILY PRN 10/20/22 05/27/23 Carbonate 500mg)] Cholecalciferol [Vitamin D3] 1 cap PO DAILY 10/20/22 05/27/23 LORazepam [Lorazepam] 1 tab PO HS PRN 10/20/22 05/27/23 Magnesium Hydroxide [Milk of 10 ml PO DAILY PRN 10/20/22 05/27/23 Magnesia] Multivitamin [Theragran] 1 tab PO DAILY 10/20/22 05/27/23 Naloxone HCl Nasal [Narcan Nasal] 1 spray HELIO PRN PRN 10/20/22 05/27/23 Ondansetron Odt [Zofran Odt] 1 tab PO BID PRN 10/20/22 05/27/23 Vitamin B Complex 1 tab PO DAILY 10/20/22 05/27/23 polyethylene glycoL 3350 1 packet PO DAILY PRN 10/20/22 05/27/23 [Polyethylene Glycol 3350] Acetaminophen [Tylenol] 1,000 mg PO Q6H PRN tab 10/30/22 05/27/23 Azithromycin [Zithromax] 250 mg PO DAILY #1 tab 10/30/22 05/27/23 Diltiazem HCl [Diltiazem 12Hr ER] 60 mg PO DAILY #30 cap 10/30/22 05/27/23 Ferrous Gluconate [Fergon] 324 mg PO DAILYWM #30 tab 10/30/22 05/27/23 Furosemide [Lasix] 40 mg PO BID #100 tablet 10/30/22 05/27/23 Nystatin [Nystop] 1 applic TOP BID each 10/30/22 05/27/23 Rivaroxaban [Xarelto] 20 mg PO DAILY #30 tablet 10/30/22 05/27/23 Vancomycin [Vancocin] 125 mg PO QID 10 Days #40 cap 10/30/22 05/27/23 - Allergies Allergies/Adverse Reactions: Allergies Allergy/AdvReac Type Severity Reaction Status Date / Time prochlorperazine edisylate * Allergy Severe Unknown Verified 07/17/23 17:46 [From Compazine] prochlorperazine Allergy Unknown Verified 07/17/23 17:46 [From Compazine] prochlorperazine maleate * Allergy Unknown Verified 07/17/23 17:46 [From Compazine] codeine AdvReac Severe Emesis Verified 07/17/23 17:46 hydrocodone AdvReac Nausea Verified 07/17/23 17:46 monosodium glutamate AdvReac Emesis Verified 07/17/23 17:46 oxycodone AdvReac Emesis Verified 07/17/23 17:46 - Social History Does the pt smoke?: No Smoking Status: Never smoker Does the pt drink ETOH?: Yes Does the pt have substance abuse?: No - Immunizations Immunizations are current?: No Immunizations: TDAP >10years/unknown - POLST Patient has POLST: No POLST Status: Full Code Results - Vitals Vitals: Vital Signs - 24 hr 07/17/23 07/17/23 07/17/23 17:39 17:46 19:00 Temperature 36.2 C L 36.7 C Heart Rate 86 88 Respiratory 18 18 22 Rate Blood Pressure 72/46 L 72/41 L 98/57 L O2 Saturation 98 99 07/17/23 19:27 Temperature Heart Rate 88 Respiratory 23 Rate Blood Pressure 111/64 O2 Saturation 97 Oxygen O2 Source Room air - EKG (time done) 1836 EKG releavant findings:: EKG personally interpreted by author of this note. Relevant findings are: Rate: Rate (enter#) (96) Rhythm: Atrial fibrillation Intervals: No: Prolonged QT Ischemia: Non specific changes Compare to prior EKG: Unchanged from prior EKG Computer interpretation: Agree with computer - Labs Labs: Microbiology 07/17/23 18:45 Occult Blood - Final Stool Laboratory Tests 07/17/23 07/17/23 07/17/23 17:48 17:58 17:58 WBC 7.6 RBC 2.32 L Hgb 6.6 L* Hct 21.9 L MCV 94.4 MCH 28.4 MCHC 30.1 L RDW 22.5 H Plt Count 273 MPV 9.4 Neut # (Auto) 6.5 Lymph # (Auto) 0.5 L [place] # (Auto) 0.6 Eos # (Auto) 0.0 Baso # (Auto) 0.0 Absolute Nucleated RBC 0.00 Nucleated RBC % 0.0 Manual Slide Review Indicated Platelet Estimate NORMAL (130-450,000) Platelet Morphology NORMAL APPEARANCE RBC Morph Micro Appear 1+ POLYCHROMASIA Sodium 134 L Potassium 3.8 Chloride 98 L Carbon Dioxide 29 Anion Gap 7.0 BUN 25 H Creatinine 1.0 Estimated GFR (MDRD) 54 L Glucose 99 Lactic Acid Calcium 8.9 Total Bilirubin 1.7 H AST 25 ALT 12 Alkaline Phosphatase 155 H B-Natriuretic Peptide 1648 H Total Protein 5.2 L Albumin 3.2 Globulin 2.0 L Albumin/Globulin Ratio 1.6 Urine Color Urine Clarity Urine pH Ur Specific [place] Urine Protein Urine Glucose (UA) Urine Ketones Urine Occult Blood Urine Nitrite Urine Bilirubin Urine Urobilinogen Ur Leukocyte Esterase Urine RBC Urine WBC Ur Squamous Epith Cells Urine Bacteria Urine Yeast Urine Culture Comments Blood Type Antibody Screen Crossmatch IS Only 07/17/23 07/17/23 07/17/23 18:05 18:28 18:57 WBC RBC Hgb Hct MCV MCH MCHC RDW Plt Count MPV Neut # (Auto) Lymph # (Auto) [place] # (Auto) Eos # (Auto) Baso # (Auto) Absolute Nucleated RBC Nucleated RBC % Manual Slide Review Platelet Estimate Platelet Morphology RBC Morph Micro Appear Sodium Potassium Chloride Carbon Dioxide Anion Gap BUN Creatinine Estimated GFR (MDRD) Glucose Lactic Acid 2.0 Calcium Total Bilirubin AST ALT Alkaline Phosphatase B-Natriuretic Peptide Total Protein Albumin Globulin Albumin/Globulin Ratio Urine Color YELLOW Urine Clarity CLEAR Urine pH 6.5 Ur Specific [place] 1.020 Urine Protein NEGATIVE Urine Glucose (UA) NEGATIVE Urine Ketones NEGATIVE Urine Occult Blood NEGATIVE Urine Nitrite NEGATIVE Urine Bilirubin NEGATIVE Urine Urobilinogen 1 (NORMAL) Ur Leukocyte Esterase NEGATIVE Urine RBC None Seen Urine WBC 0-3 Ur Squamous Epith Cells NONE SEEN Urine Bacteria None Seen Urine Yeast PRESENT Urine Culture Comments NOT INDICATED Blood Type O POSITIVE Antibody Screen NEGATIVE Crossmatch IS Only See Detail - Rads (name of study) cxr Relevant Findings:: Final report received (no acute cardiopulmonary process) PD Medical Decision Making - ED course Complexity details: reviewed old records, reviewed results, re-evaluated patient, d/w patient ED course: 77-year-old female with past medical history most significant for CHF, A-fib anticoagulated on Xarelto, lupus, previous GI bleed as well as recent left total shoulder replacement complicated by sepsis and bone infection presents the emergency department for several days of increasing general weakness, melena and hypotension at home. Current presentation to the emergency department despite an initial low blood pressure of 70/40 the patient was alert and conversant. She was afebrile. Her ECG showed rate controlled atrial fibrillation. I initially ordered CBC, electrolytes and urinalysis. Per my interpretation she does have an anemia with a hemoglobin of 6.6. Most recently 7 just 4 days ago. Patient has not had a hemoglobin higher than 8.6 since mid May. She was guiac +. Patient did have some mild electrolyte derangements that included a sodium of 134 and a chloride of 98. BUN mildly elevated at 25. Total bilirubin 1.7 essentially unchanged. Lactic acid is 2.0. She does have a low protein consistent with recent surgery and chronic illness The patient did have a history of a GI bleed in October of this year which was treated at this hospital. She underwent EGD which showed gastritis. Colonoscopy was not performed. She is advised to hold the Eliquis for 2 weeks before resuming it. She does have a history of diverticulitis resulting in colon perforation. She did undergo surgery and correction of this several years ago and had previously had normal colonoscopies her last one completed in 2018. Given the patient's anemia we did place 2 large bore peripheral IVs. A liter of IV fluids was ordered. Once the anemia was found a single unit of PRBCs was ordered. With the infusion of fluids her blood pressure has seemed to normalize now 100/50. I briefly spoke on the phone with Dr. Moore surgeon who will be on-call tomorrow though [facility]. I briefly discussed the case and he felt that the patient could be admitted to the hospital and he will consult on her tomorrow. Subsequently I spoke on the phone with nighttime telehospitalist Dr. Robles who graciously agrees to admit the patient for further evaluation and management of her anemia. Departure - Departure Disposition: 66 [facility] DC/Xfer Clinical Impression: Anemia Qualifiers: Anemia type: other cause Other causes of anemia: other cause, not classified Qualified Code(s): D64.89 - Other specified anemias GI bleeding Qualifiers: GI bleed type/associated pathology: unspecified gastrointestinal hemorrhage type Qualified Code(s): K92.2 - Gastrointestinal hemorrhage, unspecified Hypotension Qualifiers: Hypotension type: unspecified hypotension type Qualified Code(s): I95.9 - Hypotension, unspecified Condition: Stable Record reviewed to determine appropriate education?: Yes
[2023-07-17 19:17] LABS: BACTERIA,URINE None Seen /HPF (None Seen); RBC,URINE None Seen /HPF (0-5); SQUAMOUS EPITHELIAL CELL,UR NONE SEEN (<= Few); WBC,URINE 0-3 /HPF (0-5); YEAST,URINE PRESENT
[2023-07-17] MEDS ORDERED: CALCIUM CARBONATE CHEW 500 MG TABLET PO PRN (19:36)
[2023-07-17] MEDS ORDERED: ACETAMINOPHEN 325 MG TABLET PO PRN (19:37)
[2023-07-17] MEDS ORDERED: MORPHINE 2 MG/ML CARPUJECT IVP PRN (19:37)
[2023-07-17] MEDS ORDERED: ONDANSETRON 4 MG/2 ML VIAL IVP PRN (19:37)
[2023-07-17] MEDS ORDERED: SODIUM CHLORIDE FLUSH 0.9% 10 ML SYRINGE IVP PRN (19:37)
[2023-07-17] MEDS ORDERED: HYDROcod/ACETAM 5/325 MG TABLET PO PRN (19:37)
--- NOTE | 2023-07-17 20:07 | HISTORY & PHYSICAL EXAMINATION ---
Chief Complaint - Chief Complaint Chief Complaint: generlaized werakness and low BP History of Present Illness - Admitted From Admitted From:: Home - History Obtained From Records Reviewed: yes History obtained from: ED staff, pateint and her Exam Limitations: None - History of Present Illness HPI Comment/Other: 77-year-old female who has a history of atrial fibrillation anticoagulated on Xarelto, congestive heart failure, chronic anemia, history of previous GI bleed as well as lupus presents to the emergency department because her found that she had a low blood pressure today 55/43. He is found that she has been lethargic and more confused and weak than typical. He is also concerned because she has been having urinary urgency and frequency though no dysuria. The patient's complex medical history is preceded by a history of a left total shoulder joint replacement in April of this year that was complicated by subsequent infection, sepsis as well as osteomyelitis and infection of the bone. This was all treated at [facility]. Patient is currently on Levaquin and doxycycline for treatment of this arm infection. Patient reports that for the last 4 days that she has had some black stools. She is on iron though she has never had melena with iron in the past. Patient does have a history of previous GI bleed in October 2022. At that time during hospitalization an EGD was performed which showed gastritis. No colonoscopy was completed at that time. She was advised to hold her anticoagulation for 2 weeks before resuming. meds: cadesarten 32 mg daily, carvedilol 25 mg BID, plaquenil 200 mg qpm, lasix 40 mg daily, xarelto 20 mg daily, atorvastatin 20 mg daily, diltiazem 120 mg daily Patient has complex medical history last Sep Hb lower than 6.6 had EGD done no etiology recognized no comosopy perfomred Patient does have hx of diverticultis and hx of colectomy in 2007 with citizen of [place] ring placed as per . 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: reports: Breast cancer : reports: None HEENT: reports: None Psych: reports: Anxiety Musculoskeletal: reports: Osteoarthritis, Scoliosis, Chronic back pain Derm: reports: None MRSA Hx?: No - Past Surgical History General: reports: Bowel surgery, Colonoscopy, Other Ortho: reports: Hip replacement, Knee replacement, Shoulder arthroplasty HEENT: reports: Cataracts - Family & Social History Family History Comment/Other: No trend reported in the family Social History Notes: Non smoker - POLST Patient has POLST: No POLST Status: Full Code Meds/Allgy - Home Medications Home Medications: Ambulatory Orders Medication Instructions Recorded Confirmed Candesartan Cilexetil 1 tab PO DAILY 04/10/17 05/27/23 Hydroxychloroquine [Plaquenil] 200 mg PO BID 04/10/17 05/27/23 Omeprazole [PriLOSEC] 1 tab PO DAILY 04/10/17 05/27/23 Potassium Chloride 2.5 tab PO DAILY 04/10/17 05/27/23 Sertraline [Zoloft] 100 mg PO DAILY 04/10/17 05/27/23 carvediloL [Carvedilol] 25 mg PO BID 04/10/17 05/27/23 HYDROmorphone [Dilaudid] 1 - 2 tab PO Q4H PRN #25 tablet 08/15/22 05/27/23 Acetaminophen [Tylenol] 1 tab PO BID PRN 10/20/22 05/27/23 Atorvastatin [Lipitor] 1 tab PO HS 10/20/22 05/27/23 Bifidobacterium Infantis [Align] 1 tab PO DAILY 10/20/22 05/27/23 Calcium Carbonate [Tums (Calcium 2 tab PO DAILY PRN 10/20/22 05/27/23 Carbonate 500mg)] Cholecalciferol [Vitamin D3] 1 cap PO DAILY 10/20/22 05/27/23 LORazepam [Lorazepam] 1 tab PO HS PRN 10/20/22 05/27/23 Magnesium Hydroxide [Milk of 10 ml PO DAILY PRN 10/20/22 05/27/23 Magnesia] Multivitamin [Theragran] 1 tab PO DAILY 10/20/22 05/27/23 Naloxone HCl Nasal [Narcan Nasal] 1 spray HELIO PRN PRN 10/20/22 05/27/23 Ondansetron Odt [Zofran Odt] 1 tab PO BID PRN 10/20/22 05/27/23 Vitamin B Complex 1 tab PO DAILY 10/20/22 05/27/23 polyethylene glycoL 3350 1 packet PO DAILY PRN 10/20/22 05/27/23 [Polyethylene Glycol 3350] Acetaminophen [Tylenol] 1,000 mg PO Q6H PRN tab 10/30/22 05/27/23 Azithromycin [Zithromax] 250 mg PO DAILY #1 tab 10/30/22 05/27/23 Diltiazem HCl [Diltiazem 12Hr ER] 60 mg PO DAILY #30 cap 10/30/22 05/27/23 Ferrous Gluconate [Fergon] 324 mg PO DAILYWM #30 tab 10/30/22 05/27/23 Furosemide [Lasix] 40 mg PO BID #100 tablet 10/30/22 05/27/23 Nystatin [Nystop] 1 applic TOP BID each 10/30/22 05/27/23 Rivaroxaban [Xarelto] 20 mg PO DAILY #30 tablet 10/30/22 05/27/23 Vancomycin [Vancocin] 125 mg PO QID 10 Days #40 cap 10/30/22 05/27/23 - Allergies Allergies/Adverse Reactions: Allergies Allergy/AdvReac Type Severity Reaction Status Date / Time prochlorperazine edisylate * Allergy Severe Unknown Verified 07/17/23 17:46 [From Compazine] prochlorperazine Allergy Unknown Verified 07/17/23 17:46 [From Compazine] prochlorperazine maleate * Allergy Unknown Verified 07/17/23 17:46 [From Compazine] codeine AdvReac Severe Emesis Verified 07/17/23 17:46 hydrocodone AdvReac Nausea Verified 07/17/23 17:46 monosodium glutamate AdvReac Emesis Verified 07/17/23 17:46 oxycodone AdvReac Emesis Verified 07/17/23 17:46 Review of Systems - Constitutional Constitutional: reports: Fatigue, Weakness - Cardiovascular Cariovascular: reports: Irregular heart rate - Gastrointestinal Gastrointestinal: reports: Black stools - Neurological Neurological: reports: General weakness Prior Level of Functionality: Independent with ADL Exam - Vital Signs Vital Signs: Vital Signs x48h Temp Pulse Resp BP Pulse Ox 07/17/23 19:27 88 23 111/64 97 07/17/23 19:00 36.7 C 88 22 98/57 L 99 07/17/23 17:46 18 72/41 L 07/17/23 17:39 36.2 C L 86 18 72/46 L 98 - Physical Exam General Appearance: positive: Alert Eyes Bilateral: positive: Normal inspection, Other (Looks Pale) Neck: positive: Nml inspection Respiratory: positive: Chest non-tender, No respiratory distress Abdomen: positive: Non-tender, No organomegaly Extremities: positive: Non-tender, Full ROM Neurologic/Psychiatric: positive: Oriented x3, CN's nml (2-12) Sepsis Event Note (H) - Evaluation Current Stage of Sepsis: Ruled out Conclusion/Plan - Problem List (1) Gastrointestinal bleed Conclusion/Plan: NPO exceptmed Sutrgery consulted Plan for EGD+/- colonoscpy May need red blood cell scan or capsule endoscopy if no source found Transfuse PRBC IVF IV protonix bid Hold Xarelto Qualifiers: GI bleed type/associated pathology: unspecified gastrointestinal hemorrhage type Qualified Code(s): K92.2 - Gastrointestinal hemorrhage, unspecified (2) Hypotension Conclusion/Plan: Hold all BP meds for now IVF Admit to icu Monitor urine output IF Bp drops further or any symptoms to cvall us back Qualifiers: Hypotension type: unspecified hypotension type Qualified Code(s): I95.9 - Hypotension, unspecified (3) CAD (coronary artery disease) Conclusion/Plan: Monitor for now No cardiac complaints In A fib which is rate controlled and ok to give Digoxin if rate gets uncontrolled (4) Hypertension Qualifiers: Hypertension type: primary hypertension Qualified Code(s): I10 - Essential (primary) hypertension (5) Shoulder injury Conclusion/Plan: Had infecvtion in operated shoulder will ciontinue Levaquin and doxycyline All of the above discussed at length with patient and They are infiormed that 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
[2023-07-17] MEDS: ATORVASTATIN 10 MG TABLET PO SCH (22:13)
[2023-07-17] MEDS: DOXYCYCLINE 100 MG TABLET PO SCH (22:13)
[2023-07-17] MEDS: HYDROmorphone 2 MG TABLET PO SCH (22:13)
[2023-07-17] MEDS: PANTOPRAZOLE 40 MG VIAL IVP SCH (22:14)
[2023-07-17] MEDS: SODIUM CHLORIDE FLUSH 0.9% 10 ML SYRINGE IVP SCH (22:28)
[2023-07-18 05:35] LABS: BASOPHILS % (AUTO) 0.5 %; CALCIUM, IONIZED 1.12 mmol/L (1.15-1.33); NEUTROPHILS # (AUTO) 4.3 10^3/uL (1.5-6.6); RED CELL DISTRIBUTION WIDTH 21.2 % (12.0-15.0); VBG PH 7.479 (7.31-7.41)
[2023-07-18 05:38] LABS: EOSINOPHILS # (AUTO) 0.2 10^3/uL (0.0-0.7); EOSINOPHILS % (AUTO) 2.6 %; HCT - HEMATOCRIT 21.3 % (37.0-47.0); LYMPHOCYTES # (AUTO) 0.7 10^3/uL (1.5-3.5); LYMPHOCYTES % (AUTO) 11.8 %; MEAN CORPUSCULAR HEMOGLOBIN 29.6 pg (27.0-31.0); MEAN CORPUSCULAR HGB CONC 31.9 g/dL (32.0-36.0); MEAN CORPUSCULAR VOLUME 92.6 fL (81.0-99.0); MEAN PLATELET VOLUME 9.6 fL (7.9-10.8); MONOCYTES # (AUTO) 0.5 10^3/uL (0.0-1.0); MONOCYTES % (AUTO) 9.1 %; NEUTROPHILS % (AUTO) 75.6 %; PLT - PLATELET COUNT 203 10^3/uL (130-450); WHITE BLOOD COUNT 5.7 x10^3/uL (4.8-10.8)
[2023-07-18 05:43] LABS: HGB - HEMOGLOBIN 6.8 g/dL (12.0-16.0)
[2023-07-18 05:49] LABS: ALBUMIN 2.7 g/dL (3.2-5.5); ALBUMIN/GLOBULIN RATIO 1.7 (1.0-2.2); BILIRUBIN,TOTAL 1.6 mg/dL (0.2-1.0); CALCIUM 8.5 mg/dL (8.5-10.3); CREATININE 0.8 mg/dL (0.6-1.3); MAGNESIUM 1.4 mg/dL (1.7-2.3); PHOSPHORUS 3.1 mg/dL (2.5-5.0); TOTAL PROTEIN 4.3 g/dL (6.4-8.9)
--- NOTE | 2023-07-18 07:59 | PROVIDER PROGRESS NOTE ---
Subjective - Prog Note Date Prog Note Date: 07/18/23 Prog Note Time: 19:02 - Subjective Pt reports feeling: Improved (mental status is improved, back to her baseline. Bp has improved. Hb improved after two units of blood transfusion.) Subjective: Patient states she feels better. Her mind is clear now. She did not know what happened yesterday. Current Medications - Current Medications Current Medications: Active Medications Acetaminophen (Acetaminophen 325 Mg Tablet) 650 mg PO Q4HR PRN PRN Reason: Pain 1 to 4, or Fever Atorvastatin Calcium (Atorvastatin 10 Mg Tablet) 10 mg PO HS [facility] Last Admin: 07/17/23 22:13 Dose: 10 mg Calcium Carbonate/Glycine (Calcium Carbonate Chew 500 Mg Tablet) 1,000 mg PO DAILY PRN PRN Reason: Abdominal Pain Doxycycline Hyclate (Doxycycline 100 Mg Tablet) 200 mg PO BID [facility] Last Admin: 07/18/23 08:56 Dose: 200 mg Hydromorphone HCl (Hydromorphone 2 Mg Tablet) 2 mg PO Q4HR PRN PRN Reason: Severe Pain (Level 7-10) Last Admin: 07/18/23 13:33 Dose: 2 mg Levofloxacin (Levaquin 500 Mg/100 Ml) 500 mg in 100 mls @ 100 mls/hr IV Q24H [facility] Last Infusion: 07/18/23 15:57 Dose: Infused Potassium Chloride (Potassium Chloride) 10 meq in 100 mls @ 100 mls/hr IV Q1H [facility]; Protocol Stop: 07/18/23 19:59 Morphine Sulfate (Morphine 2 Mg/Ml Carpuject) 2 mg IVP Q2HR PRN PRN Reason: Pain 8 to 10 Ondansetron HCl (Ondansetron 4 Mg/2 Ml Vial) 4 mg IVP Q6HR PRN PRN Reason: Nausea / Vomiting Pantoprazole Sodium (Pantoprazole 40 Mg Vial) 40 mg IVP BID [facility] Last Admin: 07/18/23 08:44 Dose: 40 mg Sodium Chloride (Sodium Chloride Flush 0.9% 10 Ml Syringe) 10 ml IVP 0100,0900,1700 [facility] Last Admin: 07/18/23 18:29 Dose: 10 ml Sodium Chloride (Sodium Chloride Flush 0.9% 10 Ml Syringe) 10 ml IVP PRN PRN PRN Reason: NEEDED PER PROVIDER ORDERS Candesartan Cilexetil 32 mg PO DAILY 06/25/17 Hydroxychloroquine [Plaquenil] 400 mg PO QPM 04/10/17 Omeprazole [PriLOSEC] 1 cap PO QDAC 04/10/17 Sertraline [Zoloft] 100 mg PO QPM 04/10/17 carvediloL [Carvedilol] 25 mg PO BIDWM 04/10/17 Acetaminophen [Tylenol] 1 tab PO BID PRN 10/20/22 Atorvastatin [Lipitor] 10 mg PO HS 10/20/22 Bifidobacterium Infantis [Align] 2 tab PO BID 10/20/22 Cholecalciferol [Vitamin D3] 5,000 unit PO DAILY 10/20/22 LORazepam [Lorazepam] 2 mg PO HS PRN 10/20/22 Multivitamin [Theragran] 1 tab PO DAILY 10/20/22 Naloxone HCl Nasal [Narcan Nasal] 1 spray HELIO PRN PRN 10/20/22 Vitamin B Complex 1 tab PO DAILY 10/20/22 Doxycycline [Vibramycin] 100 mg PO BID 07/18/23 Furosemide [Lasix] 40 mg PO DAILY 07/18/23 Hydromorphone HCl 4 mg PO BID PRN 07/18/23 Potassium Chloride 20 meq PO QDDINNER 07/18/23 Potassium Chloride 30 meq PO QDBREAKFAST 07/18/23 Rivaroxaban [Xarelto] 20 mg PO QDDINNER 07/18/23 dilTIAZem HCL [Diltiazem 24Hr ER (Xr)] 120 mg PO DAILY 07/18/23 levoFLOXacin [Levofloxacin] 750 mg PO DAILY 07/18/23 Objective - Vital Signs/Intake & Output Vital Signs: Vital Signs Pulse Resp BP Pulse Ox 07/18/23 05:00 84 18 107/59 L 94 Intake & Output: Intake & Output 07/15/23 07/16/23 07/17/23 07/18/23 23:59 23:59 23:59 23:59 Intake Total 1800 Output Total 0 1000 Balance 1800 -1000 - Objective General Appearance: positive: No acute distress, Alert, Anxious, Other Eyes Bilateral: positive: Normal inspection, PERRL, EOMI Neck: positive: No JVD Respiratory: positive: No respiratory distress, Breath sounds nml Cardiovascular: positive: Regular rate & rhythm Abdomen: positive: Non-tender. negative: Guarding, Rebound Extremities: positive: Other (left arm is wrapped, post op appearance, skin color is unhealthy, no swollen. Unable to check her leg, due to discomfort) Neurologic/Psychiatric: positive: Oriented x3 - Lab Results Fish Bones: 07/18/23 16:40 07/18/23 13:39 Other Labs: Lab Results x24hrs 07/18/23 07/18/23 07/18/23 Range/Units 04:40 04:40 04:40 WBC 5.7 (4.8-10.8) x10^3/uL RBC 2.30 L (4.20-5.40) 10^6/uL Hgb 6.8 L* (12.0-16.0) g/dL Hct 21.3 L (37.0-47.0) % MCV 92.6 (81.0-99.0) fL MCH 29.6 (27.0-31.0) pg MCHC 31.9 L (32.0-36.0) g/dL RDW 21.2 H (12.0-15.0) % Plt Count 203 (130-450) 10^3/uL MPV 9.6 (7.9-10.8) fL Neut # (Auto) 4.3 (1.5-6.6) 10^3/uL Lymph # (Auto) 0.7 L (1.5-3.5) 10^3/uL [place] # (Auto) 0.5 (0.0-1.0) 10^3/uL Eos # (Auto) 0.2 (0.0-0.7) 10^3/uL Baso # (Auto) 0.0 (0.0-0.1) 10^3/uL Absolute Nucleated RBC 0.00 x10^3/uL Nucleated RBC % 0.0 /100WBC Manual Slide Review Platelet Estimate (NORMAL) Platelet Morphology (NORMAL) RBC Morph Micro Appear (NORMAL) VBG pH 7.479 H (7.31-7.41) Ionized Calcium 1.12 L (1.15-1.33) mmol/L Sodium 137 (135-145) mmol/L Potassium 3.0 L (3.5-4.5) mmol/L Chloride 103 (101-111) mmol/L Carbon Dioxide 27 (21-32) mmol/L Anion Gap 7.0 (6-13) BUN 21 H (6-20) mg/dL Creatinine 0.8 (0.6-1.3) mg/dL Estimated GFR (MDRD) 69 L (>89) Glucose 85 (74-104) mg/dL Lactic Acid (0.5-2.2) mmol/L Calcium 8.5 (8.5-10.3) mg/dL Phosphorus 3.1 (2.5-5.0) mg/dL Magnesium 1.4 L (1.7-2.3) mg/dL Total Bilirubin 1.6 H (0.2-1.0) mg/dL AST 21 (10-42) IU/L ALT 10 (10-60) IU/L Alkaline Phosphatase 124 H (42-121) IU/L B-Natriuretic Peptide (5-100) pg/mL Total Protein 4.3 L (6.4-8.9) g/dL Albumin 2.7 L (3.2-5.5) g/dL Globulin 1.6 L (2.1-4.2) g/dL Albumin/Globulin Ratio 1.7 (1.0-2.2) Urine Color Urine Clarity (CLEAR) Urine pH (5.0-7.5) PH Ur Specific [place] (1.002-1.030) Urine Protein (NEGATIVE) mg/dL Urine Glucose (UA) (NEGATIVE) mg/dL Urine Ketones (NEGATIVE) mg/dL Urine Occult Blood (NEGATIVE) Urine Nitrite (NEGATIVE) Urine Bilirubin (NEGATIVE) Urine Urobilinogen (NORMAL) E.U./dL Ur Leukocyte Esterase (NEGATIVE) Urine RBC (0-5) /HPF Urine WBC (0-5) /HPF Ur Squamous Epith Cells (<= Few) Urine Bacteria (None Seen) /HPF Urine Yeast Urine Culture Comments Nasal Screen MRSA (PCR) (NEGATIVE) Blood Type Antibody Screen Crossmatch IS Only 07/17/23 07/17/23 07/17/23 Range/Units 23:26 22:37 18:57 WBC (4.8-10.8) x10^3/uL RBC (4.20-5.40) 10^6/uL Hgb (12.0-16.0) g/dL Hct (37.0-47.0) % MCV (81.0-99.0) fL MCH (27.0-31.0) pg MCHC (32.0-36.0) g/dL RDW (12.0-15.0) % Plt Count (130-450) 10^3/uL MPV (7.9-10.8) fL Neut # (Auto) (1.5-6.6) 10^3/uL Lymph # (Auto) (1.5-3.5) 10^3/uL [place] # (Auto) (0.0-1.0) 10^3/uL Eos # (Auto) (0.0-0.7) 10^3/uL Baso # (Auto) (0.0-0.1) 10^3/uL Absolute Nucleated RBC x10^3/uL Nucleated RBC % /100WBC Manual Slide Review Platelet Estimate (NORMAL) Platelet Morphology (NORMAL) RBC Morph Micro Appear (NORMAL) VBG pH (7.31-7.41) Ionized Calcium (1.15-1.33) mmol/L Sodium (135-145) mmol/L Potassium (3.5-4.5) mmol/L Chloride (101-111) mmol/L Carbon Dioxide (21-32) mmol/L Anion Gap (6-13) BUN (6-20) mg/dL Creatinine (0.6-1.3) mg/dL Estimated GFR (MDRD) (>89) Glucose (74-104) mg/dL Lactic Acid 0.9 (0.5-2.2) mmol/L Calcium (8.5-10.3) mg/dL Phosphorus (2.5-5.0) mg/dL Magnesium (1.7-2.3) mg/dL Total Bilirubin (0.2-1.0) mg/dL AST (10-42) IU/L ALT (10-60) IU/L Alkaline Phosphatase (42-121) IU/L B-Natriuretic Peptide (5-100) pg/mL Total Protein (6.4-8.9) g/dL Albumin (3.2-5.5) g/dL Globulin (2.1-4.2) g/dL Albumin/Globulin Ratio (1.0-2.2) Urine Color YELLOW Urine Clarity CLEAR (CLEAR) Urine pH 6.5 (5.0-7.5) PH Ur Specific [place] 1.020 (1.002-1.030) Urine Protein NEGATIVE (NEGATIVE) mg/dL Urine Glucose (UA) NEGATIVE (NEGATIVE) mg/dL Urine Ketones NEGATIVE (NEGATIVE) mg/dL Urine Occult Blood NEGATIVE (NEGATIVE) Urine Nitrite NEGATIVE (NEGATIVE) Urine Bilirubin NEGATIVE (NEGATIVE) Urine Urobilinogen 1 (NORMAL) (NORMAL) E.U./dL Ur Leukocyte Esterase NEGATIVE (NEGATIVE) Urine RBC None Seen (0-5) /HPF Urine WBC 0-3 (0-5) /HPF Ur Squamous Epith Cells NONE SEEN (<= Few) Urine Bacteria None Seen (None Seen) /HPF Urine Yeast PRESENT Urine Culture Comments NOT INDICATED Nasal Screen MRSA (PCR) NEGATIVE (NEGATIVE) Blood Type Antibody Screen Crossmatch IS Only 07/17/23 07/17/23 07/17/23 Range/Units 18:28 18:05 17:58 WBC (4.8-10.8) x10^3/uL RBC (4.20-5.40) 10^6/uL Hgb (12.0-16.0) g/dL Hct (37.0-47.0) % MCV (81.0-99.0) fL MCH (27.0-31.0) pg MCHC (32.0-36.0) g/dL RDW (12.0-15.0) % Plt Count (130-450) 10^3/uL MPV (7.9-10.8) fL Neut # (Auto) (1.5-6.6) 10^3/uL Lymph # (Auto) (1.5-3.5) 10^3/uL [place] # (Auto) (0.0-1.0) 10^3/uL Eos # (Auto) (0.0-0.7) 10^3/uL Baso # (Auto) (0.0-0.1) 10^3/uL Absolute Nucleated RBC x10^3/uL Nucleated RBC % /100WBC Manual Slide Review Platelet Estimate (NORMAL) Platelet Morphology (NORMAL) RBC Morph Micro Appear (NORMAL) VBG pH (7.31-7.41) Ionized Calcium (1.15-1.33) mmol/L Sodium 134 L (135-145) mmol/L Potassium 3.8 (3.5-4.5) mmol/L Chloride 98 L (101-111) mmol/L Carbon Dioxide 29 (21-32) mmol/L Anion Gap 7.0 (6-13) BUN 25 H (6-20) mg/dL Creatinine 1.0 (0.6-1.3) mg/dL Estimated GFR (MDRD) 54 L (>89) Glucose 99 (74-104) mg/dL Lactic Acid 2.0 (0.5-2.2) mmol/L Calcium 8.9 (8.5-10.3) mg/dL Phosphorus (2.5-5.0) mg/dL Magnesium (1.7-2.3) mg/dL Total Bilirubin 1.7 H (0.2-1.0) mg/dL AST 25 (10-42) IU/L ALT 12 (10-60) IU/L Alkaline Phosphatase 155 H (42-121) IU/L B-Natriuretic Peptide (5-100) pg/mL Total Protein 5.2 L (6.4-8.9) g/dL Albumin 3.2 (3.2-5.5) g/dL Globulin 2.0 L (2.1-4.2) g/dL Albumin/Globulin Ratio 1.6 (1.0-2.2) Urine Color Urine Clarity (CLEAR) Urine pH (5.0-7.5) PH Ur Specific [place] (1.002-1.030) Urine Protein (NEGATIVE) mg/dL Urine Glucose (UA) (NEGATIVE) mg/dL Urine Ketones (NEGATIVE) mg/dL Urine Occult Blood (NEGATIVE) Urine Nitrite (NEGATIVE) Urine Bilirubin (NEGATIVE) Urine Urobilinogen (NORMAL) E.U./dL Ur Leukocyte Esterase (NEGATIVE) Urine RBC (0-5) /HPF Urine WBC (0-5) /HPF Ur Squamous Epith Cells (<= Few) Urine Bacteria (None Seen) /HPF Urine Yeast Urine Culture Comments Nasal Screen MRSA (PCR) (NEGATIVE) Blood Type O POSITIVE Antibody Screen NEGATIVE Crossmatch IS Only See Detail 07/17/23 07/17/23 Range/Units 17:58 17:48 WBC 7.6 (4.8-10.8) x10^3/uL RBC 2.32 L (4.20-5.40) 10^6/uL Hgb 6.6 L* (12.0-16.0) g/dL Hct 21.9 L (37.0-47.0) % MCV 94.4 (81.0-99.0) fL MCH 28.4 (27.0-31.0) pg MCHC 30.1 L (32.0-36.0) g/dL RDW 22.5 H (12.0-15.0) % Plt Count 273 (130-450) 10^3/uL MPV 9.4 (7.9-10.8) fL Neut # (Auto) 6.5 (1.5-6.6) 10^3/uL Lymph # (Auto) 0.5 L (1.5-3.5) 10^3/uL [place] # (Auto) 0.6 (0.0-1.0) 10^3/uL Eos # (Auto) 0.0 (0.0-0.7) 10^3/uL Baso # (Auto) 0.0 (0.0-0.1) 10^3/uL Absolute Nucleated RBC 0.00 x10^3/uL Nucleated RBC % 0.0 /100WBC Manual Slide Review Indicated Platelet Estimate NORMAL (130-450,000) (NORMAL) Platelet Morphology NORMAL APPEARANCE (NORMAL) RBC Morph Micro Appear 1+ POLYCHROMASIA (NORMAL) VBG pH (7.31-7.41) Ionized Calcium (1.15-1.33) mmol/L Sodium (135-145) mmol/L Potassium (3.5-4.5) mmol/L Chloride (101-111) mmol/L Carbon Dioxide (21-32) mmol/L Anion Gap (6-13) BUN (6-20) mg/dL Creatinine (0.6-1.3) mg/dL Estimated GFR (MDRD) (>89) Glucose (74-104) mg/dL Lactic Acid (0.5-2.2) mmol/L Calcium (8.5-10.3) mg/dL Phosphorus (2.5-5.0) mg/dL Magnesium (1.7-2.3) mg/dL Total Bilirubin (0.2-1.0) mg/dL AST (10-42) IU/L ALT (10-60) IU/L Alkaline Phosphatase (42-121) IU/L B-Natriuretic Peptide 1648 H (5-100) pg/mL Total Protein (6.4-8.9) g/dL Albumin (3.2-5.5) g/dL Globulin (2.1-4.2) g/dL Albumin/Globulin Ratio (1.0-2.2) Urine Color Urine Clarity (CLEAR) Urine pH (5.0-7.5) PH Ur Specific [place] (1.002-1.030) Urine Protein (NEGATIVE) mg/dL Urine Glucose (UA) (NEGATIVE) mg/dL Urine Ketones (NEGATIVE) mg/dL Urine Occult Blood (NEGATIVE) Urine Nitrite (NEGATIVE) Urine Bilirubin (NEGATIVE) Urine Urobilinogen (NORMAL) E.U./dL Ur Leukocyte Esterase (NEGATIVE) Urine RBC (0-5) /HPF Urine WBC (0-5) /HPF Ur Squamous Epith Cells (<= Few) Urine Bacteria (None Seen) /HPF Urine Yeast Urine Culture Comments Nasal Screen MRSA (PCR) (NEGATIVE) Blood Type Antibody Screen Crossmatch IS Only - Diagnostic Imaging Diagnostic Imaging Results: positive: Final report reviewed Sepsis Event Note (H) - Evaluation Current Stage of Sepsis: Ruled out Assessment/Plan - Problem List (1) Anemia Impression: acute on chronic anemia Likely from GI blood lose, with evidence of black stool for 4 days, FOBT pos Patient is on Xarelto. high risk for GI bleed. Chronic infection may cause bone marrow depression, patient has poor fuction of rebuild PRBC Patient had acute anemia in 09/2022, EGD performed in 10/2022, unremarkable (per patient's ) Colonoscopy was last done in 2013, was recommended for 10 year follow up. -give two units PRBC, Hb improved to 8.2 from 6.2, Per surgeon, EGD is planned tomorrow Qualifiers: Anemia type: other cause Other causes of anemia: other cause, not classified Qualified Code(s): D64.89 - Other specified anemias (2) Hypotension Impression: transient hypovoulimic shock Resolved, after iv fluid and blood transfusion Close vital monitoring Follow up on H&H every 4 hours for 3 times if Hb<7, needs another unit of PRBC Qualifiers: Hypotension type: unspecified hypotension type Qualified Code(s): I95.9 - Hypotension, unspecified (3) H/O arthroplasty Impression: left shoulder arthroplasty, hardware infection completed iv antibiotic course, PICC line just removed Per her Chinese ID, Dr. Neeraj Cochran, continue oral levaqin and doxy, follow up on CRP (4) CHF exacerbation Impression: BNP 1648 EKG at admission no ischemic changes, follow up on EKG Echo ordered Patient appears euvolamic, May consider diuretic once her Bp is tolerated (5) Disorder of electrolytes Impression: Hypokalemia, hypomagnesia Likely due to poor oral intake, and GI loss -Magnesium is replenished, improved to normal Potassium is improved Continue monitoring electrolytes. Telemetry due to high risk of arrhythmia (6) Atrial fibrillation Impression: Rate is controlled, Paroxysmal A-fib on Xarelto Hold Xarelto due to GI bleed Telemetry monitoring in case of arrhythmia Continue carvedilol If BP tolerated
[2023-07-18] MEDS: PANTOPRAZOLE 40 MG VIAL IVP SCH ×2 (08:44→20:17)
[2023-07-18] MEDS: HYDROmorphone 2 MG TABLET PO SCH (08:55)
[2023-07-18] MEDS: DOXYCYCLINE 100 MG TABLET PO SCH ×2 (08:56→20:17)
[2023-07-18] MEDS: POTASSIUM CHLOR 10 MEQ/100 ML 10 MEQ/100 ML BAG IV SCH ×6 (09:03→20:17)
[2023-07-18] MEDS: MAGNESIUM SULFATE 2 GRAM 2 GM/50 ML BAG IV SCH ×2 (09:04→10:26)
[2023-07-18] MEDS: SODIUM CHLORIDE FLUSH 0.9% 10 ML SYRINGE IVP SCH ×2 (11:12→18:29)
--- NOTE | 2023-07-18 12:34 | PHARMACY PROGRESS NOTE ---
- Best Possible Medication History Admit Date and Time: 07/17/231937 Processed by: Pharmacy Medication History completed: Yes Secondary Source(s): Written medication list, Spouse/Significant other, Pharmacy records, Insurance records As the person ultimately responsible for medication therapy, providers are able to order a medication from an existing home medication list in [facility] via the "Reconcile Routine" prior to Confirmation of that medication by faculty support coordinator. Such practice is discouraged except when the physician, in their clinical judgment, deems that a medical need exists for a medication without regard to previous use.
[2023-07-18] MEDS ORDERED: ZINC OXIDE 20% OINT 30 GM TUBE TOP ONE (13:04)
[2023-07-18] MEDS: HYDROmorphone 2 MG TABLET PO PRN ×2 (13:33→20:18)
[2023-07-18] MEDS: levoFLOXacin 500 MG/100 ML 500 MG/100 ML BAG IV SCH (13:33)
[2023-07-18 13:46] LABS: HCT - HEMATOCRIT 27.4 % (37.0-47.0); HGB - HEMOGLOBIN 8.7 g/dL (12.0-16.0)
[2023-07-18 14:01] LABS: CALCIUM 8.6 mg/dL (8.5-10.3); CREATININE 0.7 mg/dL (0.6-1.3); MAGNESIUM 2.5 mg/dL (1.7-2.3); POTASSIUM 3.2 mmol/L (3.5-4.5)
--- NOTE | 2023-07-18 14:32 | CONSULTATION NOTE ---
Surgery Consult - Admit Date Hospital Admission Date: 07/17/23 - Consult Date Consult Date: 07/18/23 Requesting Provider: Dr. Adrian - Chief Complaint Chief Complaint: Acute on chronic anemia - Home Meds/Allergies Home Medications: Patient History Medication Instructions Recorded Confirmed Candesartan Cilexetil 32 mg PO DAILY 04/10/17 07/18/23 Hydroxychloroquine [Plaquenil] 400 mg PO QPM 04/10/17 07/18/23 Omeprazole [PriLOSEC] 1 cap PO QDAC 04/10/17 07/18/23 Sertraline [Zoloft] 100 mg PO QPM 04/10/17 07/18/23 carvediloL [Carvedilol] 25 mg PO BIDWM 04/10/17 07/18/23 Acetaminophen [Tylenol] 1 tab PO BID PRN 10/20/22 07/18/23 Atorvastatin [Lipitor] 10 mg PO HS 10/20/22 07/18/23 Bifidobacterium Infantis [Align] 2 tab PO BID 10/20/22 07/18/23 Cholecalciferol [Vitamin D3] 5,000 unit PO DAILY 10/20/22 07/18/23 LORazepam [Lorazepam] 2 mg PO HS PRN 10/20/22 07/18/23 Multivitamin [Theragran] 1 tab PO DAILY 10/20/22 07/18/23 Naloxone HCl Nasal [Narcan Nasal] 1 spray HELIO PRN PRN 10/20/22 07/18/23 Vitamin B Complex 1 tab PO DAILY 10/20/22 07/18/23 Doxycycline [Vibramycin] 100 mg PO BID 07/18/23 07/18/23 Furosemide [Lasix] 40 mg PO DAILY 07/18/23 07/18/23 Hydromorphone HCl 4 mg PO BID PRN 07/18/23 07/18/23 Potassium Chloride 20 meq PO QDDINNER 07/18/23 07/18/23 Potassium Chloride 30 meq PO QDBREAKFAST 07/18/23 07/18/23 Rivaroxaban [Xarelto] 20 mg PO QDDINNER 07/18/23 07/18/23 dilTIAZem HCL [Diltiazem 24Hr ER 120 mg PO DAILY 07/18/23 07/18/23 (Xr)] levoFLOXacin [Levofloxacin] 750 mg PO DAILY 07/18/23 07/18/23 Allergies/Adverse Reactions: Allergies Allergy/AdvReac Type Severity Reaction Status Date / Time prochlorperazine edisylate * Allergy Severe Unknown Verified 07/17/23 17:46 [From Compazine] prochlorperazine Allergy Unknown Verified 07/17/23 17:46 [From Compazine] prochlorperazine maleate * Allergy Unknown Verified 07/17/23 17:46 [From Compazine] codeine AdvReac Severe Emesis Verified 07/17/23 17:46 hydrocodone AdvReac Nausea Verified 07/17/23 17:46 monosodium glutamate AdvReac Emesis Verified 07/17/23 17:46 oxycodone AdvReac Emesis Verified 07/17/23 17:46 - Vital Signs Vital Signs: Last Vital Signs Temp 209.5 F H 07/18/23 13:15 Pulse 80 07/18/23 14:00 Resp 16 07/18/23 14:00 BP 122/82 H 07/18/23 14:00 Pulse Ox 97 07/18/23 14:00 O2 Flow Rate Intake & Output: Intake & Output 07/15/23 07/16/23 07/17/23 07/18/23 23:59 23:59 23:59 23:59 Intake Total 1800 500 Output Total 0 1600 Balance 1800 -1100 - Lab Results Result Diagrams: 07/18/23 13:39 07/18/23 13:39 - Consultation Note Consultation Note: General Surgery Consultation Note Assessment: 1) Acute on chronic anemia. Given the melena, probably an UGI source. 2) Systemic Lupus 3) Ventral hernia vs subcutaneous lipoma- asymptomatic Recommendation: 1) May have sips and chips today 2) NPO after midnight 3) EGD in am. If normal, she will then undergo a bowel prep for CS the following day. If the EGD identifies a source for her acute anemia, CS can be scheduled as an out-patient when she has recovered from this acute bleeding episode. 4) Once this acute bleeding episode has been addressed, CT of the abdomen to evaluate the subcutaneous mass may be considered. <><><><><><><><><><> Reason for Consultation Acute on chronic anemia Chief Complaint Weakness HPI The patient is a 77 YO female with four days of melena associated with lethargy, weakness, and hypotension. She denies the use of NSAIDS since September 2022 when she experienced a similar episode of acute anemia and was found to have gastritis. She takes a DOAC for atrial fibrillation. Her last evening dose was 36 hours ago. Since admission, she has not passed melena and has not demonstrated nausea or hematemesis. She carries a diagnosis of chronic anemia thought due to her Lupus. She has a history of sigmoid colectomy for perforated diverticulitis. In 2013 she had a normal colonoscopy examination. Her tells me she is followed by a physical science professor and that she has been told that she has a ventral hernia which apparently is asymptomatic. She has received 2 units of PRBC for today her Hgb is 8.7. Past Medical History SLE CHF, AFib, HTN, [place] Arthritis Diverticulitis Scoliosis; Migraines; Pneumonia Past Surgical History Sigmoid colectomy for perforated diverticulitis Family History She lives on the dent with her Current Medications See "Medication" section Allergies See "Allergy" section ROS Pertinent positives Lethargy, fatigue, melena All other reviewed systems negative Physical Examination Vital Signs: See "Vital Signs" section BMI: 27 GENERAL APPEARANCE: Normal development, normal body habitus, normal grooming PSYCHIATRIC: AAO; Comfortable; Hearing impaired EYES: Pupils equal, round and reactive to light, sclera anicteric EARS, NOSE, MOUTH, THROAT: Hearing normal, Oral mucous membranes moist and without lesions; NECK: No crepitus, lymphadenopathy, or thyromegaly LUNGS: Clear to auscultation without wheezing; No use of accessory muscles to breathe CARDIOVASCULAR: Heart-NSR without murmurs; Palpable carotid arteries - no bru its; ABD: Soft, non-tender; subcutaneous mass inferior aspect of midline incision which likely represents an asymptomatic irreducible ventral hernia or lipoma LYMPHATIC: Neck, Axillae, Groin no palpable adenopathy EXTREMITIES: No clubbing, cyanosis, infections SKIN: Anicteric; No rashes, lesions, Ulcerations Labs See "Labs" section Dariel Moore MD, [facility] General Surgery Service [phone]
[2023-07-18 16:43] LABS: HCT - HEMATOCRIT 25.6 % (37.0-47.0); HGB - HEMOGLOBIN 8.2 g/dL (12.0-16.0)
--- NOTE | 2023-07-18 17:02 | PROVIDER PROGRESS NOTE ---
Progress Note Consent: Gaye and her have been counseled for the procedure (EGD), it's indications, risks, benefits and expected outcome as well as alternative therapies. We specifically discussed risks associated with anesthesia and possible aspiration as well as injury to the upper GI tract. Both Gaye and her understand, agree, and consent to the proposed operative strategy and requests that we proceed with the procedure as outlined in our discussion. Christopher Moore MD, [facility] General Surgery Service
[2023-07-18] MEDS: ATORVASTATIN 10 MG TABLET PO SCH (20:18)
[2023-07-19] MEDS: SODIUM CHLORIDE FLUSH 0.9% 10 ML SYRINGE IVP SCH ×3 (01:25→19:44)
[2023-07-19 05:10] LABS: BASOPHILS # (AUTO) 0.1 10^3/uL (0.0-0.1); BASOPHILS % (AUTO) 0.7 %; EOSINOPHILS # (AUTO) 0.1 10^3/uL (0.0-0.7); HCT - HEMATOCRIT 25.5 % (37.0-47.0); HGB - HEMOGLOBIN 8.4 g/dL (12.0-16.0); LYMPHOCYTES # (AUTO) 0.7 10^3/uL (1.5-3.5); LYMPHOCYTES % (AUTO) 9.2 %; MEAN CORPUSCULAR HEMOGLOBIN 30.2 pg (27.0-31.0); MEAN CORPUSCULAR HGB CONC 32.9 g/dL (32.0-36.0); MEAN CORPUSCULAR VOLUME 91.7 fL (81.0-99.0); MEAN PLATELET VOLUME 9.6 fL (7.9-10.8); MONOCYTES # (AUTO) 0.6 10^3/uL (0.0-1.0); MONOCYTES % (AUTO) 8.9 %; NEUTROPHILS # (AUTO) 5.7 10^3/uL (1.5-6.6); NEUTROPHILS % (AUTO) 79.9 %; PLT - PLATELET COUNT 196 10^3/uL (130-450); RED BLOOD COUNT 2.78 10^6/uL (4.20-5.40); RED CELL DISTRIBUTION WIDTH 20.1 % (12.0-15.0); WHITE BLOOD COUNT 7.1 x10^3/uL (4.8-10.8)
[2023-07-19 05:12] LABS: SLIDE REVIEW? Indicated
[2023-07-19 05:25] LABS: PHOSPHORUS 3.2 mg/dL (2.5-5.0)
[2023-07-19 05:26] LABS: CALCIUM 8.7 mg/dL (8.5-10.3); CREATININE 0.7 mg/dL (0.6-1.3); POTASSIUM 3.2 mmol/L (3.5-4.5)
[2023-07-19 05:41] LABS: PLATELET ESTIMATE, MANUAL NORMAL (130-450,000) (NORMAL)
[2023-07-19 05:45] LABS: CALCIUM, IONIZED 1.16 mmol/L (1.15-1.33); VBG PH 7.459 (7.31-7.41)
[2023-07-19] MEDS: HYDROmorphone 2 MG TABLET PO PRN ×2 (06:15→09:37)
[2023-07-19] MEDS: POTASSIUM CHLOR 10 MEQ/100 ML 10 MEQ/100 ML BAG IV SCH ×4 (06:15→11:15)
--- NOTE | 2023-07-19 09:00 | PROVIDER PROGRESS NOTE ---
Subjective - Subjective Pt reports feeling: Improved (No pain, is awaiting upper endoscopy) Objective - Vital Signs/Intake & Output Reviewed Vital Signs: Yes Vital Signs: Vital Signs Temp Pulse Resp BP Pulse Ox 07/19/23 08:00 37.0 C 82 22 126/59 L 98 07/19/23 07:00 75 16 120/80 95 07/19/23 06:00 37.1 C 81 21 132/77 H 95 07/19/23 05:00 77 18 120/69 95 Intake & Output: Intake & Output 07/16/23 07/17/23 07/18/23 07/19/23 23:59 23:59 23:59 23:59 Intake Total 1800 1068.333 340 Output Total 0 1800 200 Balance 1800 -731.667 140 - Objective General Appearance: positive: No acute distress, Alert, Other (Disheveled and frail, thin female.) Eyes Bilateral: positive: Normal inspection, EOMI ENT: positive: Dry mucous membranes Neck: positive: Nml inspection, No JVD Respiratory: positive: No respiratory distress, Breath sounds nml Cardiovascular: positive: No murmur, Irregularly irregular Abdomen: positive: Non-tender, No distention Skin: positive: Warm, Dry Extremities: positive: Non-tender, Other (1+ pedal edema) Neurologic/Psychiatric: positive: Oriented x3, Motor nml - Lab Results Fish Bones: 07/20/23 04:55 07/20/23 04:55 Other Labs: Lab Results x24hrs 07/19/23 07/19/23 07/19/23 Range/Units 04:38 04:38 04:38 WBC (4.8-10.8) x10^3/uL RBC (4.20-5.40) 10^6/uL Hgb (12.0-16.0) g/dL Hct (37.0-47.0) % MCV (81.0-99.0) fL MCH (27.0-31.0) pg MCHC (32.0-36.0) g/dL RDW (12.0-15.0) % Plt Count (130-450) 10^3/uL MPV (7.9-10.8) fL Neut # (Auto) (1.5-6.6) 10^3/uL Lymph # (Auto) (1.5-3.5) 10^3/uL [place] # (Auto) (0.0-1.0) 10^3/uL Eos # (Auto) (0.0-0.7) 10^3/uL Baso # (Auto) (0.0-0.1) 10^3/uL Absolute Nucleated RBC x10^3/uL Nucleated RBC % /100WBC Manual Slide Review Platelet Estimate (NORMAL) RBC Morph Micro Appear (NORMAL) VBG pH 7.459 H (7.31-7.41) Ionized Calcium 1.16 (1.15-1.33) mmol/L Sodium 136 (135-145) mmol/L Potassium 3.2 L (3.5-4.5) mmol/L Chloride 103 (101-111) mmol/L Carbon Dioxide 27 (21-32) mmol/L Anion Gap 6.0 (6-13) BUN 17 (6-20) mg/dL Creatinine 0.7 (0.6-1.3) mg/dL Estimated GFR (MDRD) 81 L (>89) Glucose 85 (74-104) mg/dL Calcium 8.7 (8.5-10.3) mg/dL Phosphorus 3.2 (2.5-5.0) mg/dL Magnesium 2.0 (1.7-2.3) mg/dL C-Reactive Protein 1.0 H (<0.5) mg/dL Crossmatch IS Only 07/19/23 07/18/23 07/18/23 Range/Units 04:38 16:40 13:39 WBC 7.1 (4.8-10.8) x10^3/uL RBC 2.78 L (4.20-5.40) 10^6/uL Hgb 8.4 L 8.2 L (12.0-16.0) g/dL Hct 25.5 L 25.6 L (37.0-47.0) % MCV 91.7 (81.0-99.0) fL MCH 30.2 (27.0-31.0) pg MCHC 32.9 (32.0-36.0) g/dL RDW 20.1 H (12.0-15.0) % Plt Count 196 (130-450) 10^3/uL MPV 9.6 (7.9-10.8) fL Neut # (Auto) 5.7 (1.5-6.6) 10^3/uL Lymph # (Auto) 0.7 L (1.5-3.5) 10^3/uL [place] # (Auto) 0.6 (0.0-1.0) 10^3/uL Eos # (Auto) 0.1 (0.0-0.7) 10^3/uL Baso # (Auto) 0.1 (0.0-0.1) 10^3/uL Absolute Nucleated RBC 0.00 x10^3/uL Nucleated RBC % 0.0 /100WBC Manual Slide Review Indicated Platelet Estimate NORMAL (130-450,000) (NORMAL) RBC Morph Micro Appear 1+ OVALOCYTES (NORMAL) VBG pH (7.31-7.41) Ionized Calcium (1.15-1.33) mmol/L Sodium 137 (135-145) mmol/L Potassium 3.2 L (3.5-4.5) mmol/L Chloride 103 (101-111) mmol/L Carbon Dioxide 27 (21-32) mmol/L Anion Gap 7.0 (6-13) BUN 18 (6-20) mg/dL Creatinine 0.7 (0.6-1.3) mg/dL Estimated GFR (MDRD) 81 L (>89) Glucose 94 (74-104) mg/dL Calcium 8.6 (8.5-10.3) mg/dL Phosphorus (2.5-5.0) mg/dL Magnesium 2.5 H (1.7-2.3) mg/dL C-Reactive Protein (<0.5) mg/dL Crossmatch IS Only 07/18/23 07/17/23 Range/Units 13:39 18:28 WBC (4.8-10.8) x10^3/uL RBC (4.20-5.40) 10^6/uL Hgb 8.7 L (12.0-16.0) g/dL Hct 27.4 L (37.0-47.0) % MCV (81.0-99.0) fL MCH (27.0-31.0) pg MCHC (32.0-36.0) g/dL RDW (12.0-15.0) % Plt Count (130-450) 10^3/uL MPV (7.9-10.8) fL Neut # (Auto) (1.5-6.6) 10^3/uL Lymph # (Auto) (1.5-3.5) 10^3/uL [place] # (Auto) (0.0-1.0) 10^3/uL Eos # (Auto) (0.0-0.7) 10^3/uL Baso # (Auto) (0.0-0.1) 10^3/uL Absolute Nucleated RBC x10^3/uL Nucleated RBC % /100WBC Manual Slide Review Platelet Estimate (NORMAL) RBC Morph Micro Appear (NORMAL) VBG pH (7.31-7.41) Ionized Calcium (1.15-1.33) mmol/L Sodium (135-145) mmol/L Potassium (3.5-4.5) mmol/L Chloride (101-111) mmol/L Carbon Dioxide (21-32) mmol/L Anion Gap (6-13) BUN (6-20) mg/dL Creatinine (0.6-1.3) mg/dL Estimated GFR (MDRD) (>89) Glucose (74-104) mg/dL Calcium (8.5-10.3) mg/dL Phosphorus (2.5-5.0) mg/dL Magnesium (1.7-2.3) mg/dL C-Reactive Protein (<0.5) mg/dL Crossmatch IS Only See Detail Sepsis Event Note (H) - Evaluation Current Stage of Sepsis: Ruled out Assessment/Plan - Problem List (1) Symptomatic anemia Impression: Acute on chronic anemia. She was hypotansive at presentation and admtted to ICU Likely from GI blood lose, with evidence of black stool for 4 days, guaic test pos Patient was on Xarelto. so had high risk for GI bleed. Patient had acute anemia in 09/2022, EGD performed in 10/2022, unremarkable (per patient's ). Colonoscopy was last done in 2013, was recommended for 10 year follow up. She got two units PRBC, Hb improved to 8.2 from 6.2, and today stable at 8 (all labs reviewed) Plan: EGD is planned later today Qualifiers: Anemia type: other cause Other causes of anemia: other cause, not classified Qualified Code(s): D64.89 - Other specified anemias (2) CHF exacerbation Impression: BNP 1648 EKG at admission no ischemic changes, follow up on EKG did show new ant T wave inversions which I interpreted Echo ordered anfd is awaited today Patient appears euvolamic, with just pedal edema Plan: May consider diuretic once her Bp can tolerate it (3) Disorder of electrolytes Impression: Hypokalemia, hypomagnesia Likely due to poor oral intake, and GI loss Magnesium is replenished, improved to normal Potassium has improved Plan: Continue monitoring electrolytes. Telemetry due to high risk of arrhythmia (4) Atrial fibrillation Impression: Rate is controlled, probably has Paroxysmal A-fib She was on Xarelto Plan: Cont to hold Xarelto due to GI bleed Telemetry monitoring in case of arrhythmia Continue carvedilol If BP tolerated (5) H/O arthroplasty Impression: left shoulder arthroplasty, hardware infection, needed 2 surgeries completed iv antibiotic course, PICC line just removed Plan: Per her Vietnamese ID, Dr. Neeraj Cochran, continue oral levaqin and doxy, follow up on CRP (6) Severe protein calorie malnutrition Impression: The patient has had weight loss of about 45 pounds, or 20% of her body weight, in the past 10 months documented. She has significant muscle wasting and loss of subcu fat. We learned today that she was told by a friend to avoid calcium-c ontaining foods while she was on antibiotics, which she needed for multiple shoulder surgeries. Because of avoiding many foods, she decreased her total food intake considerably, over the past 9 mos. Plan: Nutrition consult, encourage intake, adjust diet (7) Hypotension Impression: Resolved She had hypovoelimic shock. Resolved, after iv fluid and blood transfusion Plan: if Hb<7, needs another unit of PRBC Could be moved out of ICU if BP remains stable and no further acute bleeding Qualifiers: Hypotension type: unspecified hypotension type Qualified Code(s): I95.9 - Hypotension, unspecified
[2023-07-19] MEDS: DOXYCYCLINE 100 MG TABLET PO SCH ×2 (09:17→21:35)
[2023-07-19] MEDS: levoFLOXacin 500 MG/100 ML 500 MG/100 ML BAG IV SCH (09:24)
[2023-07-19] MEDS: PANTOPRAZOLE 40 MG VIAL IVP SCH ×2 (09:27→21:36)
--- NOTE | 2023-07-19 13:55 | ANESTHESIA ---
Pre-Anesthesia VS, & Labs - Diagnosis anemia - Procedure EGD Vital Signs: Temp Pulse Resp BP Pulse Ox O2 Flow Rate 36.6 C 77 19 131/79 H 97 07/19/23 12:00 07/19/23 13:00 07/19/23 13:00 07/19/23 13:00 07/19/23 13:00 Height: 5 ft 4 in Weight (kg): 68.5 kg Body Mass Index: 25.9 BMI Classification: Overweight - NPO >8 hours - Is Patient ?: No - Lab Results Current Lab Results: Laboratory Tests 07/19/23 12:24: Potassium 3.8 07/19/23 04:38: VBG pH 7.459 H, Ionized Calcium 1.16 07/19/23 04:38: Phosphorus 3.2, Magnesium 2.0 07/19/23 04:38: Sodium 136, Potassium 3.2 L, Chloride 103, Carbon Dioxide 27, Anion Gap 6.0, BUN 17, Creatinine 0.7, Estimated GFR (MDRD) 81 L, Glucose 85, Calcium 8.7, C-Reactive Protein 1.0 H 07/19/23 04:38: WBC 7.1, RBC 2.78 L, Hgb 8.4 L, Hct 25.5 L, MCV 91.7, MCH 30.2, MCHC 32.9, RDW 20.1 H, Plt Count 196, MPV 9.6, Neut # (Auto) 5.7, Lymph # (Auto) 0.7 L, [place] # (Auto) 0.6, Eos # (Auto) 0.1, Baso # (Auto) 0.1, Absolute Nucleated RBC 0.00, Nucleated RBC % 0.0, Manual Slide Review Indicated, Platelet Estimate NORMAL (130-450,000), RBC Morph Micro Appear 1+ OVALOCYTES 07/18/23 16:40: Hgb 8.2 L, Hct 25.6 L 07/18/23 13:39: Sodium 137, Potassium 3.2 L, Chloride 103, Carbon Dioxide 27, Anion Gap 7.0, BUN 18, Creatinine 0.7, Estimated GFR (MDRD) 81 L, Glucose 94, Calcium 8.6, Magnesium 2.5 H 07/18/23 13:39: Hgb 8.7 L, Hct 27.4 L 07/18/23 04:40: VBG pH 7.479 H, Ionized Calcium 1.12 L 07/18/23 04:40: Sodium 137, Potassium 3.0 L, Chloride 103, Carbon Dioxide 27, Anion Gap 7.0, BUN 21 H, Creatinine 0.8, Estimated GFR (MDRD) 69 L, Glucose 85, Calcium 8.5, Phosphorus 3.1, Magnesium 1.4 L, Total Bilirubin 1.6 H, AST 21, ALT 10, Alkaline Phosphatase 124 H, Total Protein 4.3 L, Albumin 2.7 L, Globulin 1.6 L, Albumin/Globulin Ratio 1.7 07/18/23 04:40: WBC 5.7, RBC 2.30 L, Hgb 6.8 L*, Hct 21.3 L, MCV 92.6, MCH 29.6, MCHC 31.9 L, RDW 21.2 H, Plt Count 203, MPV 9.6, Neut # (Auto) 4.3, Lymph # (Auto) 0.7 L, [place] # (Auto) 0.5, Eos # (Auto) 0.2, Baso # (Auto) 0.0, Absolute Nucleated RBC 0.00, Nucleated RBC % 0.0 07/17/23 23:26: Lactic Acid 0.9 07/17/23 18:28: Blood Type O POSITIVE, Antibody Screen NEGATIVE, Crossmatch IS Only See Detail 07/17/23 18:05: Lactic Acid 2.0 07/17/23 17:58: Sodium 134 L, Potassium 3.8, Chloride 98 L, Carbon Dioxide 29, Anion Gap 7.0, BUN 25 H, Creatinine 1.0, Estimated GFR (MDRD) 54 L, Glucose 99, Calcium 8.9, Total Bilirubin 1.7 H, AST 25, ALT 12, Alkaline Phosphatase 155 H, Total Protein 5.2 L, Albumin 3.2, Globulin 2.0 L, Albumin/Globulin Ratio 1.6 07/17/23 17:58: WBC 7.6, RBC 2.32 L, Hgb 6.6 L*, Hct 21.9 L, MCV 94.4, MCH 28.4, MCHC 30.1 L, RDW 22.5 H, Plt Count 273, MPV 9.4, Neut # (Auto) 6.5, Lymph # (Auto) 0.5 L, [place] # (Auto) 0.6, Eos # (Auto) 0.0, Baso # (Auto) 0.0, Absolute Nucleated RBC 0.00, Nucleated RBC % 0.0, Manual Slide Review Indicated, Platelet Estimate NORMAL (130-450,000), Platelet Morphology NORMAL APPEARANCE, RBC Morph Micro Appear 1+ POLYCHROMASIA 07/17/23 17:48: B-Natriuretic Peptide 1648 H Fish Bones: 07/19/23 04:38 07/19/23 12:24 Home Medications and Allergies Home Medications: Ambulatory Orders Doxycycline [Vibramycin] 100 mg PO BID 07/18/23 Furosemide [Lasix] 40 mg PO DAILY 07/18/23 Hydromorphone HCl 4 mg PO BID PRN 07/18/23 Potassium Chloride 20 meq PO QDDINNER 07/18/23 Potassium Chloride 30 meq PO QDBREAKFAST 07/18/23 Rivaroxaban [Xarelto] 20 mg PO QDDINNER 07/18/23 dilTIAZem HCL [Diltiazem 24Hr ER (Xr)] 120 mg PO DAILY 07/18/23 levoFLOXacin [Levofloxacin] 750 mg PO DAILY 07/18/23 Active Medications Acetaminophen (Acetaminophen 325 Mg Tablet) 650 mg PO Q4HR PRN PRN Reason: Pain 1 to 4, or Fever Atorvastatin Calcium (Atorvastatin 10 Mg Tablet) 10 mg PO HS [facility] Last Admin: 07/18/23 20:18 Dose: 10 mg Calcium Carbonate/Glycine (Calcium Carbonate Chew 500 Mg Tablet) 1,000 mg PO DAILY PRN PRN Reason: Abdominal Pain Doxycycline Hyclate (Doxycycline 100 Mg Tablet) 200 mg PO BID [facility] Last Admin: 07/19/23 09:17 Dose: 200 mg Hydromorphone HCl (Hydromorphone 2 Mg Tablet) 2 mg PO Q4HR PRN PRN Reason: Severe Pain (Level 7-10) Last Admin: 07/19/23 09:37 Dose: 2 mg Levofloxacin (Levaquin 500 Mg/100 Ml) 500 mg in 100 mls @ 100 mls/hr IV Q24H [facility] Last Infusion: 07/19/23 10:27 Dose: Infused Morphine Sulfate (Morphine 2 Mg/Ml Carpuject) 2 mg IVP Q2HR PRN PRN Reason: Pain 8 to 10 Ondansetron HCl (Ondansetron 4 Mg/2 Ml Vial) 4 mg IVP Q6HR PRN PRN Reason: Nausea / Vomiting Last Admin: 07/19/23 10:05 Dose: 4 mg Pantoprazole Sodium (Pantoprazole 40 Mg Vial) 40 mg IVP BID [facility] Last Admin: 07/19/23 09:27 Dose: 40 mg Sodium Chloride (Sodium Chloride Flush 0.9% 10 Ml Syringe) 10 ml IVP 0100,0900 ,1700 [facility] Last Admin: 07/19/23 11:15 Dose: 10 ml Sodium Chloride (Sodium Chloride Flush 0.9% 10 Ml Syringe) 10 ml IVP PRN PRN PRN Reason: NEEDED PER PROVIDER ORDERS Candesartan Cilexetil 32 mg PO DAILY 04/10/17 Hydroxychloroquine [Plaquenil] 400 mg PO QPM 04/10/17 Omeprazole [PriLOSEC] 1 cap PO QDAC 04/10/17 Sertraline [Zoloft] 100 mg PO QPM 04/10/17 carvediloL [Carvedilol] 25 mg PO BIDWM 04/10/17 Acetaminophen [Tylenol] 1 tab PO BID PRN 10/20/22 Atorvastatin [Lipitor] 10 mg PO HS 10/20/22 Bifidobacterium Infantis [Align] 2 tab PO BID 10/20/22 Cholecalciferol [Vitamin D3] 5,000 unit PO DAILY 10/20/22 LORazepam [Lorazepam] 2 mg PO HS PRN 10/20/22 Multivitamin [Theragran] 1 tab PO DAILY 10/20/22 Naloxone HCl Nasal [Narcan Nasal] 1 spray HELIO PRN PRN 10/20/22 Vitamin B Complex 1 tab PO DAILY 10/20/22 Doxycycline [Vibramycin] 100 mg PO BID 07/18/23 Furosemide [Lasix] 40 mg PO DAILY 07/18/23 Hydromorphone HCl 4 mg PO BID PRN 07/18/23 Potassium Chloride 20 meq PO QDDINNER 07/18/23 Potassium Chloride 30 meq PO QDBREAKFAST 07/18/23 Rivaroxaban [Xarelto] 20 mg PO QDDINNER 07/18/23 dilTIAZem HCL [Diltiazem 24Hr ER (Xr)] 120 mg PO DAILY 07/18/23 levoFLOXacin [Levofloxacin] 750 mg PO DAILY 07/18/23 Allergies/Adverse Reactions: Allergies Allergy/AdvReac Type Severity Reaction Status Date / Time prochlorperazine edisylate * Allergy Severe Unknown Verified 07/17/23 17:46 [From Compazine] prochlorperazine Allergy Unknown Verified 07/17/23 17:46 [From Compazine] prochlorperazine maleate * Allergy Unknown Verified 07/17/23 17:46 [From Compazine] codeine AdvReac Severe Emesis Verified 07/17/23 17:46 hydrocodone AdvReac Nausea Verified 07/17/23 17:46 monosodium glutamate AdvReac Emesis Verified 07/17/23 17:46 oxycodone AdvReac Emesis Verified 07/17/23 17:46 Anes History & Medical History - Anesthetic History Anesthesia Complications: reports: No previous complications Family history of Anesthesia Complications: Denies Family history of Malignant Hyperthermia: Denies - Medical History Cardiovascular: reports: Congestive heart failure, Hypertension, Coronary artery disease, [place], Atrial fibrillation Pulmonary: reports: Pneumonia Gastrointestinal: reports: GI bleed, Hemorrhoids, Diverticulitis Urinary: reports: None Neuro: reports: Migraines, Peripheral neuropathy Musculoskeletal: reports: Osteoarthritis, Scoliosis, Chronic back pain Endocrine/Autoimmune: reports: Systemic lupus erythematosus Blood Disorders: reports: Anemia Skin: reports: None Smoking Status: Never smoker History of Cancer?: Yes (L breast) - Surgical History General: reports: Bowel surgery, Colonoscopy, Other Eyes Ears Nose Throat (EENT): reports: Cataracts Orthopedic: reports: Hip replacement, Knee replacement, Shoulder arthroplasty Exam General: Alert, Oriented x3, Cooperative Dental: WNL Mouth Openin Fingerbreadth Neck Mobility: Reduced Mallampati classification: I Thyromental Distance: 4-6 cm Respiratory: Lungs clear Cardiovascular: Regular rate Plan Anesthesia Type: General, Total IV Consent for Procedure(s) Verified and Reviewed: Yes Code Status: Attempt Resuscitation ASA classification: 3-Severe systemic disease Is this case an emergency?: No
[2023-07-19] MEDS ORDERED: PROPOFOL 200 MG/20 ML VIAL IVP ONE (13:59)
[2023-07-19] MEDS ORDERED: ZINC OXIDE 20% OINT 30 GM TUBE TOP ONE (15:08)
--- NOTE | 2023-07-19 16:22 | ANESTHESIA POST OP EVALUATION ---
Anesthesia Post Eval - Post Anesthesia Eval Vitals: Last Vital Signs Temp 36.6 C 07/19/23 12:00 Pulse 75 07/19/23 16:00 Resp 16 07/19/23 16:00 BP 121/74 07/19/23 15:00 Pulse Ox 97 07/19/23 16:00 O2 Flow Rate CV Function Including HR & BP: Stable Pain Control: Satisfactory Nausea & Vomiting: Negative Mental Status: Baseline Respiratory Status: Airway Patent Hydration Status: Satisfactory Anesthesia Complications: None
[2023-07-19] MEDS: NYSTATIN 500000 UNITS/5 ML UDC PO SCH ×2 (19:44→21:37)
[2023-07-19] MEDS ORDERED: LORazepam 1 MG TABLET PO PRN (19:52)
[2023-07-19] MEDS: ATORVASTATIN 10 MG TABLET PO SCH (21:35)
[2023-07-19] MEDS: HYDROXYCHLOROQUINE 200 MG TABLET PO SCH (21:36)
[2023-07-19] MEDS: SERTRALINE 50 MG TABLET PO SCH (21:36)
[2023-07-20] MEDS: SODIUM CHLORIDE FLUSH 0.9% 10 ML SYRINGE IVP SCH ×3 (00:38→17:38)
[2023-07-20 05:06] LABS: BASOPHILS % (AUTO) 0.5 %; EOSINOPHILS # (AUTO) 0.1 10^3/uL (0.0-0.7); EOSINOPHILS % (AUTO) 1.3 %; HCT - HEMATOCRIT 26.4 % (37.0-47.0); HGB - HEMOGLOBIN 8.4 g/dL (12.0-16.0); LYMPHOCYTES # (AUTO) 0.7 10^3/uL (1.5-3.5); MEAN CORPUSCULAR HEMOGLOBIN 29.6 pg (27.0-31.0); MEAN CORPUSCULAR HGB CONC 31.8 g/dL (32.0-36.0); MEAN PLATELET VOLUME 10.1 fL (7.9-10.8); MONOCYTES # (AUTO) 0.6 10^3/uL (0.0-1.0); MONOCYTES % (AUTO) 7.4 %; NEUTROPHILS # (AUTO) 6.2 10^3/uL (1.5-6.6); NEUTROPHILS % (AUTO) 81.4 %; PLT - PLATELET COUNT 217 10^3/uL (130-450); RED BLOOD COUNT 2.84 10^6/uL (4.20-5.40); RED CELL DISTRIBUTION WIDTH 20.2 % (12.0-15.0); WHITE BLOOD COUNT 7.7 x10^3/uL (4.8-10.8)
[2023-07-20 05:17] LABS: SLIDE REVIEW? Indicated
[2023-07-20 05:26] LABS: CALCIUM 8.6 mg/dL (8.5-10.3); CREATININE 0.7 mg/dL (0.6-1.3); POTASSIUM 3.4 mmol/L (3.5-4.5)
[2023-07-20 05:39] LABS: PLATELET ESTIMATE, MANUAL NORMAL (130-450,000) (NORMAL)
[2023-07-20] MEDS: PANTOPRAZOLE 40 MG VIAL IVP SCH ×2 (08:54→22:19)
[2023-07-20] MEDS: FERROUS GLUCONATE 324 MG TABLET PO SCH (08:55)
[2023-07-20] MEDS: DOXYCYCLINE 100 MG TABLET PO SCH ×2 (08:55→22:19)
[2023-07-20] MEDS: CHOLECALCIFEROL 5,000 UNIT CAPSULE PO SCH (08:55)
[2023-07-20] MEDS: levoFLOXacin 500 MG/100 ML 500 MG/100 ML BAG IV SCH (08:55)
[2023-07-20] MEDS ORDERED: MULTIVITAMIN TABLET PO SCH ×2 (09:00→17:10)
[2023-07-20] MEDS: NYSTATIN 500000 UNITS/5 ML UDC PO SCH ×4 (09:00→22:18)
[2023-07-20] MEDS: LACTOBACILLUS RHAMNOSUS GG CAPSULE PO SCH (12:58)
--- NOTE | 2023-07-20 13:36 | PROVIDER PROGRESS NOTE ---
Subjective - Prog Note Date Prog Note Date: 07/20/23 Prog Note Time: 01:32 - Subjective Pt reports feeling: No change Subjective: 77 Y.O F is feeling about the same today as she did yesterday. Since getting her egd yesterday she has been on a soft mechanical diet and has tolerated the food well with no nausea/vomiting or abdominal pain. She has decreased motivation to eat however because she states that her "tastebuds are off and the food doesn't taste good". She still feels fatigued today. She has had a bowl movement today with the nurse reporting that it was dark green tarry looking. Current Medications - Current Medications Current Medications: Active Medications Acetaminophen (Acetaminophen 325 Mg Tablet) 650 mg PO Q4HR PRN PRN Reason: Pain 1 to 4, or Fever Atorvastatin Calcium (Atorvastatin 10 Mg Tablet) 10 mg PO HS [facility] Last Admin: 07/19/23 21:35 Dose: 10 mg Calcium Carbonate/Glycine (Calcium Carbonate Chew 500 Mg Tablet) 1,000 mg PO DAILY PRN PRN Reason: Abdominal Pain Cholecalciferol (Cholecalciferol 5,000 Unit Capsule) 5,000 unit PO DAILY [facility] Last Admin: 07/20/23 08:55 Dose: 5,000 unit Doxycycline Hyclate (Doxycycline 100 Mg Tablet) 200 mg PO BID [facility] Last Admin: 07/20/23 08:55 Dose: 200 mg Ferrous Gluconate (Ferrous Gluconate 324 Mg Tablet) 324 mg PO DAILYWM [facility] Last Admin: 07/20/23 08:55 Dose: 324 mg Hydromorphone HCl (Hydromorphone 2 Mg Tablet) 2 mg PO Q4HR PRN PRN Reason: Severe Pain (Level 7-10) Last Admin: 07/19/23 09:37 Dose: 2 mg Hydroxychloroquine Sulfate (Hydroxychloroquine 200 Mg Tablet) 400 mg PO QPM [facility] Last Admin: 07/19/23 21:36 Dose: 400 mg Levofloxacin (Levaquin 500 Mg/100 Ml) 500 mg in 100 mls @ 100 mls/hr IV Q24H [facility] Last Infusion: 07/20/23 12:06 Dose: Infused Lactobacillus Rhamnosus (Lactobacillus Rhamnosus Gg Capsule) 1 cap PO DAILY [facility] Last Admin: 07/20/23 12:58 Dose: 1 cap Lorazepam (Lorazepam 1 Mg Tablet) 2 mg PO HS PRN PRN Reason: Anxiety Morphine Sulfate (Morphine 2 Mg/Ml Carpuject) 2 mg IVP Q2HR PRN PRN Reason: Pain 8 to 10 Last Admin: 07/20/23 00:48 Dose: 2 mg Multivitamins (Multivitamin Tablet) 1 tab PO DAILY [facility] Last Admin: 07/20/23 08:55 Dose: 1 tab Non-Formulary Medication (Diltiazem Hcl [Diltiazem 24hr Er (Xr)]) 120 mg PO DAILY [facility] Non-Formulary Medication (Potassium Chloride [Potassium Chloride]) 20 meq PO QDDINNER [facility] Nystatin (Nystatin 746698 Units/5 Ml Udc) 5 ml PO QID [facility] Last Admin: 07/20/23 12:57 Dose: 5 ml Ondansetron HCl (Ondansetron 4 Mg/2 Ml Vial) 4 mg IVP Q6HR PRN PRN Reason: Nausea / Vomiting Last Admin: 07/19/23 10:05 Dose: 4 mg Pantoprazole Sodium (Pantoprazole 40 Mg Vial) 40 mg IVP BID [facility] Last Admin: 07/20/23 08:54 Dose: 40 mg Sertraline HCl (Sertraline 50 Mg Tablet) 100 mg PO QPM [facility] Last Admin: 07/19/23 21:36 Dose: 100 mg Sodium Chloride (Sodium Chloride Flush 0.9% 10 Ml Syringe) 10 ml IVP 0100,0900,1700 [facility] Last Admin: 07/20/23 08:54 Dose: 10 ml Sodium Chloride (Sodium Chloride Flush 0.9% 10 Ml Syringe) 10 ml IVP PRN PRN PRN Reason: NEEDED PER PROVIDER ORDERS Last Admin: 07/19/23 21:36 Dose: 20 ml Candesartan Cilexetil 32 mg PO DAILY 04/10/17 Hydroxychloroquine [Plaquenil] 400 mg PO QPM 04/10/17 Omeprazole [PriLOSEC] 1 cap PO QDAC 04/10/17 Sertraline [Zoloft] 100 mg PO QPM 04/10/17 carvediloL [Carvedilol] 25 mg PO BIDWM 04/10/17 Acetaminophen [Tylenol] 1 tab PO BID PRN 10/20/22 Atorvastatin [Lipitor] 10 mg PO HS 10/20/22 Bifidobacterium Infantis [Align] 2 tab PO BID 10/20/22 Cholecalciferol [Vitamin D3] 5,000 unit PO DAILY 10/20/22 LORazepam [Lorazepam] 2 mg PO HS PRN 10/20/22 Multivitamin [Theragran] 1 tab PO DAILY 10/20/22 Naloxone HCl Nasal [Narcan Nasal] 1 spray HELIO PRN PRN 10/20/22 Vitamin B Complex 1 tab PO DAILY 10/20/22 Doxycycline [Vibramycin] 100 mg PO BID 07/18/23 Furosemide [Lasix] 40 mg PO DAILY 07/18/23 Hydromorphone HCl 4 mg PO BID PRN 07/18/23 Potassium Chloride 20 meq PO QDDINNER 07/18/23 Potassium Chloride 30 meq PO QDBREAKFAST 07/18/23 Rivaroxaban [Xarelto] 20 mg PO QDDINNER 07/18/23 dilTIAZem HCL [Diltiazem 24Hr ER (Xr)] 120 mg PO DAILY 07/18/23 levoFLOXacin [Levofloxacin] 750 mg PO DAILY 07/18/23 Objective - Vital Signs/Intake & Output Reviewed Vital Signs: Yes Vital Signs: Vital Signs x48h Temp Pulse Resp BP Pulse Ox 07/20/23 08:15 36.7 C 79 18 137/83 H 95 Intake & Output: Intake & Output 07/17/23 07/18/23 07/19/23 07/20/23 23:59 23:59 23:59 23:59 Intake Total 1800 2615.133 8020 1120 Output Total 0 1800 900 700 Balance 1800 -731.667 580 420 - Objective General Appearance: positive: Anxious (Pt is currently anxious about everything that is going on and the unknown factors of her decreasing potassium.) Eyes Bilateral: positive: Normal inspection ENT: positive: ENT inspection nml Neck: positive: Nml inspection, No JVD Respiratory: positive: Chest non-tender, No respiratory distress, Breath sounds nml Cardiovascular: positive: Irregularly irregular Peripheral Pulses: 1+ Dorsalis pedis (R), 1+ Dorsalis pedis (L) Abdomen: positive: Non-tender, Nml bowel sounds, No distention Skin: positive: Color nml, Warm, Dry Extremities: positive: Pedal edema (+1 swelling around both ankles) Neurologic/Psychiatric: positive: Oriented x3, Other (Pt takes a bit to find the right words and answers for questions leading to long pauses. Sometimes her has to step in to answer for her.) - Lab Results Fish Bones: 07/20/23 04:55 07/20/23 04:55 Other Labs: Lab Results x24hrs 07/20/23 07/20/23 07/19/23 Range/Units 04:55 04:55 17:15 WBC 7.7 (4.8-10.8) x10^3/uL RBC 2.84 L (4.20-5.40) 10^6/uL Hgb 8.4 L 8.2 L (12.0-16.0) g/dL Hct 26.4 L (37.0-47.0) % MCV 93.0 (81.0-99.0) fL MCH 29.6 (27.0-31.0) pg MCHC 31.8 L (32.0-36.0) g/dL RDW 20.2 H (12.0-15.0) % Plt Count 217 (130-450) 10^3/uL MPV 10.1 (7.9-10.8) fL Neut # (Auto) 6.2 (1.5-6.6) 10^3/uL Lymph # (Auto) 0.7 L (1.5-3.5) 10^3/uL [place] # (Auto) 0.6 (0.0-1.0) 10^3/uL Eos # (Auto) 0.1 (0.0-0.7) 10^3/uL Baso # (Auto) 0.0 (0.0-0.1) 10^3/uL Absolute Nucleated RBC 0.00 x10^3/uL Nucleated RBC % 0.0 /100WBC Manual Slide Review Indicated Platelet Estimate NORMAL (130-450,000) (NORMAL) RBC Morph Micro Appear 1+ HYPOCHROMASIA (NORMAL) Sodium 134 L (135-145) mmol/L Potassium 3.4 L (3.5-4.5) mmol/L Chloride 102 (101-111) mmol/L Carbon Dioxide 27 (21-32) mmol/L Anion Gap 5.0 L (6-13) BUN 19 (6-20) mg/dL Creatinine 0.7 (0.6-1.3) mg/dL Estimated GFR (MDRD) 81 L (>89) Glucose 98 (74-104) mg/dL Calcium 8.6 (8.5-10.3) mg/dL ABX Reporting Has patient been on IV antibiotics over the past 48 hours?: Yes Sepsis Event Note (H) - Evaluation Current Stage of Sepsis: Ruled out Assessment/Plan - Problem List (1) Symptomatic anemia Impression: Acute on chronic anemia. She was hypotansive at presentation and admtted to ICU. Today 07/20 her most recent BP measured at 137/83 which is slightly elevated but out of hypotensive range. Her symptomatic anemia is most likely from GI blood lose, with evidence of black stool for 4 days, guaic test pos Patient was on Xarelto. so had high risk for GI bleed. Patient had acute anemia in 09/2022, EGD performed in 10/2022, unremarkable (per patient's ). Colonoscopy was last done in 2013, was recommended for 10 year follow up. She got two units PRBC on 07/17 and 07/18 with Hb improved to 8.2 from 6.2, and today 07/20 is stable at 8.4 (all labs reviewed) EGD was preformed yesterday which found Acute chronic gastritis with hemorrhage. Plan: Hgb checked every 8 hours and if found below 7 start transfusion Start Fergon 324 mg PO daily Start Vitamin D 5,000 unit PO daily Start Theragran 1 tab PO daily Stop Xarelto (2) Gastritis with hemorrhage Impression: Acute on chronic gastritis with hemorrhage was seen on the patients EGD. This is the source of her bleeding which has caused symptomatic anemia. This can be caused due to continual xarelto usage Plan: Hgb checked every 8 hours and if found below 7 start transfusion Stop her Xarelto Continue Protonix 40 mg IVP BID Qualifiers: Chronicity: chronic (3) Sue infection Impression: During Pts egd, there were white plaques found on mucosal surfaces that has suspicion of sue. Due to this it could be leading to the patient having a change in her taste for food causing her decreased eating. Plan: Start Nystatin 5 ml PO QID Consult with title closer about finding foods that could improve her taste thus improving her nutrition. (4) Hypokalemia Impression: Likely due to poor oral intake, GI loss, and use of at home Furosemide 40 mg PO tablet daily. Since being admitted she has been taken off the furosemide. Today 10/4,patient and her were educated on the causes of low potassium and what may be causing it. They are now aware that the furosemide can cause it to be low but through proper nutrition and the continuation of taking her potassium supplements it can stay within normal ranges. Potassium has improved with it being at 3.4 on 07/20 Plan: Continue monitoring electrolytes through daily BMP Pt potassium is within acceptable levels and she can restart her medication upon discharge, further discussion will be had on potassium supplements. Consult with title closer about proper diet Stop telemetry (5) Atrial fibrillation Impression: Pt has a history of A fib and has been seen by a manager club for it. She was put on Xarelto for anticoagulation but since starting it has had two GI bleeds leading to severe anemia. As such two different medication options have been discussed today 07/20, with her and her and both seem open to them. Pricing of both is the main contingency point for which one she will be put on. Rate is controlled. The patient had a drop in her BP when she was standing and working with physical therapy down to 90 systolic. As such the discussion of her BP was brought up and both her and her will continue to check it at home. Plan: Cont to hold Xarelto due to GI bleed Start either Eliquis or pradaxa once patient has been discharged Continue carvedilol but at 1/4 of the normal dosage. Continue to increase it as long as BP measurements are above 100 systolic. (6) CHF (congestive heart failure) Impression: BNP 1648 on 07/17 EKG at admission no ischemic changes, follow up on EKG did show new ant T wave inversions Echo was done on 07/20 and found the following: Mild concentric LVH, left ventricular systolic function of an ejection fracture of 60-65%, Pseudonormal LV filling pattern consistent with grade II diastolic dysfunction, Mildly abnormal right heart pressures, RVSP at rest is 42mmHg. See Echo report for more information. Patient appears euvolamic, with just pedal edema, no SOB or chest pain. 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 Qualifiers: Heart failure chronicity: chronic (7) Severe protein-calorie malnutrition Impression: The patient has had weight loss of about 45 pounds, or 20% of her body weight, in the past 10 months documented. She has significant muscle wasting and loss of subcu fat. We learned today that she was told by a friend to avoid calcium- containing foods while she was on antibiotics, which she needed for multiple shoulder surgeries. Because of avoiding many foods, she decreased her total food intake considerably, over the past 9 mos. Plan: Nutrition consult, encourage intake, adjust diet (8) H/O arthroplasty Impression: left shoulder arthroplasty, hardware infection, needed 2 surgeries completed iv antibiotic course Plan: Per her [place] ID, Dr. Neeraj Cochran, continue oral levaqin and doxy, follow up on CRP and WBC once a week. PT had CRP checked once this week already and will continue to have WBC checked as part of her anemia work up/monitoring.
[2023-07-20] MEDS ORDERED: POTASSIUM CHLORIDE 20 MEQ TABLET PO SCH (17:00)
[2023-07-20] MEDS: carvediloL 3.125 MG TABLET PO SCH (17:38)
[2023-07-20] MEDS ORDERED: CALCIUM CARBONATE CHEW 500 MG TABLET PO PRN (18:33)
[2023-07-20] MEDS: ATORVASTATIN 10 MG TABLET PO SCH (20:42)
[2023-07-20] MEDS: HYDROXYCHLOROQUINE 200 MG TABLET PO SCH (20:42)
[2023-07-20] MEDS: SERTRALINE 50 MG TABLET PO SCH (20:44)
[2023-07-21] MEDS: SODIUM CHLORIDE FLUSH 0.9% 10 ML SYRINGE IVP SCH ×2 (00:40→08:59)
[2023-07-21 05:07] LABS: BASOPHILS # (AUTO) 0.1 10^3/uL (0.0-0.1); BASOPHILS % (AUTO) 0.6 %; EOSINOPHILS # (AUTO) 0.1 10^3/uL (0.0-0.7); EOSINOPHILS % (AUTO) 1.1 %; HCT - HEMATOCRIT 28.9 % (37.0-47.0); HGB - HEMOGLOBIN 9.3 g/dL (12.0-16.0); LYMPHOCYTES % (AUTO) 12.4 %; MEAN CORPUSCULAR HEMOGLOBIN 29.9 pg (27.0-31.0); MEAN CORPUSCULAR HGB CONC 32.2 g/dL (32.0-36.0); MEAN CORPUSCULAR VOLUME 92.9 fL (81.0-99.0); MEAN PLATELET VOLUME 9.2 fL (7.9-10.8); MONOCYTES # (AUTO) 0.8 10^3/uL (0.0-1.0); MONOCYTES % (AUTO) 9.1 %; NEUTROPHILS # (AUTO) 6.3 10^3/uL (1.5-6.6); NEUTROPHILS % (AUTO) 76.4 %; PLT - PLATELET COUNT 188 10^3/uL (130-450); RED BLOOD COUNT 3.11 10^6/uL (4.20-5.40); RED CELL DISTRIBUTION WIDTH 20.5 % (12.0-15.0); WHITE BLOOD COUNT 8.2 x10^3/uL (4.8-10.8)
[2023-07-21 05:20] LABS: CALCIUM 8.8 mg/dL (8.5-10.3); CREATININE 0.7 mg/dL (0.6-1.3); POTASSIUM 3.4 mmol/L (3.5-4.5)
[2023-07-21 05:42] LABS: SLIDE REVIEW? Indicated
[2023-07-21 05:50] LABS: PLATELET ESTIMATE, MANUAL NORMAL (130-450,000) (NORMAL)
[2023-07-21 05:53] LABS: PLATELET MORPHOLOGY NORMAL APP (NORMAL)
[2023-07-21] MEDS ORDERED: POTASSIUM CHLORIDE 10 MEQ CAPSULE PO SCH (08:00)
[2023-07-21] MEDS: FERROUS GLUCONATE 324 MG TABLET PO SCH (08:58)
[2023-07-21] MEDS: carvediloL 3.125 MG TABLET PO SCH (08:58)
[2023-07-21] MEDS: CHOLECALCIFEROL 5,000 UNIT CAPSULE PO SCH (08:58)
[2023-07-21] MEDS: LACTOBACILLUS RHAMNOSUS GG CAPSULE PO SCH (08:58)
[2023-07-21] MEDS: NYSTATIN 500000 UNITS/5 ML UDC PO SCH ×2 (08:58→13:23)
[2023-07-21] MEDS: PANTOPRAZOLE 40 MG VIAL IVP SCH (08:59)
[2023-07-21] MEDS ORDERED: FUROSEMIDE 40 MG TABLET PO SCH (09:00)
[2023-07-21] MEDS ORDERED: diltiaZEM CD 120 MG CAPSULE PO SCH (09:00)
[2023-07-21] MEDS ORDERED: levoFLOXacin 250 MG TABLET PO SCH (10:00)
[2023-07-21 10:20] VITALS: BP 116/77; O2SAT 98
[2023-07-21 11:03] LABS: % IRON SATURATION 21 % (20-50); IRON 58 ug/dL (50-212); TOTAL IRON BINDING CAPACITY 270 ug/dL (250-450); TRANSFERRIN 193 mg/dL (203-362)
[2023-07-21] MEDS: DOXYCYCLINE 100 MG TABLET PO SCH (12:11)
--- NOTE | 2023-07-21 12:51 | Discharge Plan ---
Discharge Plan Problem Reviewed?: Yes Disposition: Home, Self Care Condition: Fair Prescriptions: Apixaban [Eliquis] 5 mg PO BID #60 tablet Nystatin [Mycostatin] 5 ml PO QID #112 ea Pantoprazole [Protonix] 40 mg PO DAILY #30 tablet Diet: Cardiac Activity Restrictions: Activity as Tolerated Shower Restrictions: No Driving Restrictions: Yes Assistance Devices: Wheelchair, Walker Instruction Topics: Gastritis Health Concerns: You were hospitalized to manage intestinal bleeding which made you anemic. You needed blood transfusions. You are now on iron replacement. You had a very low blood pressure and many of your heart medicines were on temporary hold until the blood pressure improved. You had an upper endoscopy test that showed gastritis (inflammation of the stomach) and overgrowth of yeast plaques in your esophagus and stomach. Those were probably caused by being on antibiotics for a long period of time. You are being prescribed oral Nystatin (an antifungal medicine) to take for several weeks to treat these yeast plaques. In addition, a medication for the inflammation and bleeding gastritis has been prescribed, called Protonix. Thus, you should not take the Omeprazole while you are on Protonix. The Surgeon advised that you have repeat upper endoscopy in 6 to 8 weeks to check that the stomach has healed. It is also advised that you no longer take Xarelto, which has the highest risk of causing stomach bleeding of all the blood thinners that are available. In its place you have been prescribed a new medicine called Eliquis. All new prescriptions were electronically sent to your [facility] pharmacy in [place]. You may resume your usual HEART and BP medications in the following way: 07/21: no evening dose of Carvedilol 07/22: OK to take 1/2 tablet of Carvedilol twice a day, OK to take Candesartan, OK to take all doses of Potassium. Do not take Lasix or Diltiazem 07/23: OK to take 1/2 tablet of Carvedilol twice a day, OK to take Candesartan, OK to take Lasix, OK to take all doses of Potassium. Do not take Diltiazem. 07/24: OK to take full tablet of Carvedilol twice a day, OK to take Candesartan, OK to take Lasix, OK to take all doses of Potassium. Do not take Diltiazem. 07/25: All cardiac and BP medicines OK to take. Measure blood pressure once a day, around breakfast time and keep a log. If at any time the systolic BP (top number) is under 99, check with your doctor regarding what to skip and what to take. You should see your primary care provider in the next 1 to 2 weeks for a hospital follow-up visit and you need a blood test to check your hemoglobin. Please bring a list of all the medications you will now take, when you go see all your doctors so they can update their records. Remember that we want you to eat more foods that have protein and that contain calcium. You need to build back some muscle mass. Separate the foods that have calcium from your Doxycycline by about 2 hours. Plan of Treatment: As above. Care Goals: Improvement in symptoms and stabilization are the goals. Assessment: The patient and understand and are agreeable with the plan. Additional Instructions or Follow Up instructions: If you have new or worsening symptoms, call your PCP, or your Plant Protection Guard for advice, or go to an Urgent Care Center, or come to the ER. No Smoking: If you smoke, Please STOP! Call for help. Follow-up with: GUI COOK, LUIS ANGEL, PSYCHIATRIC CLINICAL NURSE SPECIALIST [Primary Care Provider] -
--- NOTE | 2023-07-21 14:23 | DISCHARGE SUMMARY ---
Discharge Summary Admit Date: 07/17/23 Discharge Date: 07/21/23 Discharging Provider: Dr. Anna Santamaria Primary Care Provider: Dr. Adrián Bennett Code Status: Attempt Resuscitation Condition at Discharge: Stable Discharge Disposition: 01 Home, Self Care - HPI History of Present Illness: 77-year-old female who has a history of atrial fibrillation anticoagulated on Xarelto, congestive heart failure, chronic anemia, history of previous GI bleed as well as lupus presented to the emergency department because her found that she had a low blood pressure of 55/43. He found that she has been lethargic and more confused and weak than typical. He was also concerned because she has been having urinary urgency and frequency though no dysuria. The patient's complex medical history is preceded by a history of a left total shoulder joint replacement in April of this year that was complicated by subsequent infection, sepsis as well as osteomyelitis and infection of the bone. This was all treated at [facility]. Patient is currently on Levaquin and doxycycline for treatment of this arm infection. Patient reported that she has had some black stools. She is on iron though she had never had melena with iron in the past. Patient does have a history of previous GI bleed in October 2022. At that time during hospitalization an EGD was performed which showed gastritis. No colonoscopy was completed at that time. She was advised to hold her anticoagulation for 2 weeks before resuming. meds: cadesarten 32 mg daily, carvedilol 25 mg BID, plaquenil 200 mg qpm, lasix 40 mg daily, xarelto 20 mg daily, atorvastatin 20 mg daily, diltiazem 120 mg daily Patient has complex medical history last Dec Hb lower than 6.6 had EGD done no etiology recognized no comosopy perfomred Patient does have hx of diverticultis and hx of colectomy in 2007 with tongan ring placed as per . 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 - HOSPITAL COURSE Hospital Course: (1) Symptomatic anemia Pts symptomatic anemia was most likely due to GI blood lost, evident by black stool and guaic test being +, which was exacerbated by her usage of Xarelto. An EGD was preformed and found acute chronic gastritis with hemorrhage. Pt recieved two units of PRBCs one on 07/17 and another on 07/18 to treat a low Hgb of 6.2. After recieving both units her Hgb improved to 8.2 and her BP improved to 137/83 (2) Gastritis with hemorrhage Acute on chronic gastritis with hemorrhage was seen on the patients EGD. This is the source of her bleeding which has caused symptomatic anemia. This can be caused due to continual xarelto usage. She was started on Protonix and is having her Xarelto switched to a Eliquis that she is to start three days after discharge. (3) Alejo infection During Pts EGD, there were white plaques found on mucosal surfaces that has suspicion of alejo. Due to this it could be leading to the patient having a change in her taste for food causing her decreased eating. Continue to take Nystatin for 4 weeks to help resolve her Alejo infection and hopefully improve the taste of food. (4) Hypokalemia Likely due to poor oral intake, GI loss, and use of at home Furosemide 40 mg PO tablet daily. Since being admitted she was been taken off the furosemide and potassium supplementation was started, her potassium is 3.4 on discharge. Pt will be restarted back on her Furosemide a week after discharge, and she is to talk to her PCP about reducing the amount taken to avoid hypokalemia in the future. (5) Atrial fibrillation Pt has a history of A fib and has been seen by a manager wind for it. She was put on Xarelto for anticoagulation but since starting it has had two GI bleeds leading to severe anemia. Pt is being switched from Xarelto and started on Eliquis 3 days after her discharge. Rate was controlled. Pt is going to start her carvedilol but at 1/4 of the normal dosage and is to continue to increase it as long as her BP measurements are above 100 systolic. (6) CHF (congestive heart failure) BNP was 1648 on 07/17 but on EKG at admission no ischemic changes were seen. However, a follow up EKG did show new ant T wave inversions Echo was done on 07/20 and found the following: Mild concentric LVH, left ventricular systolic function of an ejection fracture of 60-65%, Pseudonormal LV filling pattern consistent with grade II diastolic dysfunction, Mildly abnormal right heart pressures, RVSP at rest is 42mmHg. Over the course of the next few days the Pt will slowly restart her medications for CHF so as not to put her back in a hypotensive state. (7) Severe protein-calorie malnutrition The patient has had weight loss of about 45 pounds, or 20% of her body weight, in the past 10 months documented. She has significant muscle wasting and loss of subcu fat. It was found out that she was told by a friend to avoid calcium- containing foods while she was on antibiotics, which she needed for multiple shoulder surgeries. Because of avoiding many foods, she decreased her total food intake considerably, over the past 9 mos. (8) H/O arthroplasty left shoulder arthroplasty, hardware infection, needed 2 surgeries. Per her [place] ID, Dr. Neeraj Cochran, continue oral levaqin and doxy, follow up on CRP and WBC once a week. - ALLERGIES Allergies/Adverse Reactions: Allergies Allergy/AdvReac Type Severity Reaction Status Date / Time prochlorperazine edisylate * Allergy Severe Unknown Verified 07/17/23 17:46 [From Compazine] prochlorperazine Allergy Unknown Verified 07/17/23 17:46 [From Compazine] prochlorperazine maleate * Allergy Unknown Verified 07/17/23 17:46 [From Compazine] codeine AdvReac Severe Emesis Verified 07/17/23 17:46 hydrocodone AdvReac Nausea Verified 07/17/23 17:46 monosodium glutamate AdvReac Emesis Verified 07/17/23 17:46 oxycodone AdvReac Emesis Verified 07/17/23 17:46 - MEDICATIONS Home Medications: Ambulatory Orders Medication Instructions Recorded Confirmed Candesartan Cilexetil 32 mg PO DAILY 04/10/17 07/18/23 Hydroxychloroquine [Plaquenil] 400 mg PO QPM 04/10/17 07/18/23 Sertraline [Zoloft] 100 mg PO QPM 04/10/17 07/18/23 carvediloL [Carvedilol] 25 mg PO BIDWM 04/10/17 07/18/23 Acetaminophen [Tylenol] 1 tab PO BID PRN 10/20/22 07/18/23 Atorvastatin [Lipitor] 10 mg PO HS 10/20/22 07/18/23 Bifidobacterium Infantis [Align] 2 tab PO BID 10/20/22 07/18/23 Cholecalciferol [Vitamin D3] 5,000 unit PO DAILY 10/20/22 07/18/23 LORazepam [Lorazepam] 2 mg PO HS PRN 10/20/22 07/18/23 Multivitamin [Theragran] 1 tab PO DAILY 10/20/22 07/18/23 Naloxone HCl Nasal [Narcan Nasal] 1 spray HELIO PRN PRN 10/20/22 07/18/23 Vitamin B Complex 1 tab PO DAILY 10/20/22 07/18/23 Ferrous Gluconate [Fergon] 324 mg PO DAILYWM #30 tab 10/30/22 07/18/23 Doxycycline [Vibramycin] 100 mg PO BID 07/18/23 07/18/23 Furosemide [Lasix] 40 mg PO DAILY 07/18/23 07/18/23 Hydromorphone HCl 4 mg PO BID PRN 07/18/23 07/18/23 Potassium Chloride 20 meq PO QDDINNER 07/18/23 07/18/23 Potassium Chloride 30 meq PO QDBREAKFAST 07/18/23 07/18/23 dilTIAZem HCL [Diltiazem 24Hr ER 120 mg PO DAILY 07/18/23 07/18/23 (Xr)] levoFLOXacin [Levofloxacin] 750 mg PO DAILY 07/18/23 07/18/23 Apixaban [Eliquis] 5 mg PO BID #60 tablet 07/21/23 Nystatin [Mycostatin] 5 ml PO QID #112 ea 07/21/23 Pantoprazole [Protonix] 40 mg PO DAILY #30 tablet 07/21/23 - PHYSICAL EXAM AT DISCHARGE General Appearance: positive: No acute distress, Alert Eyes Bilateral: positive: Normal inspection ENT: positive: ENT inspection nml Neck: positive: Nml inspection, No JVD Respiratory: positive: Chest non-tender, No respiratory distress, Breath sounds nml Cardiovascular: positive: Irregularly irregular Abdomen: positive: Non-tender, Nml bowel sounds Skin: positive: Color nml, Warm, Dry Extremities: positive: Pedal edema (+1 swelling around the ankles ), Other (L arm in a sling due to prior surgeries ) Neurologic/Psychiatric: positive: Oriented x3 - LABS Result Diagrams: 07/21/23 04:50 07/21/23 04:50 - SEPSIS Current Stage of Sepsis: Ruled out - FOLLOW UP Follow Up: See PCP in the next 1 to 2 weeks for hospital follow-up visit. - TIME SPENT Time Spent in Discharge (Minutes): 45
[2023-07-22] MEDS ORDERED: FERROUS GLUCONATE 324 MG TABLET PO SCH (12:00)
== END 2023-07-21 15:35 | disposition home or self-care (01) | DRG 377 ==
LOC: ED 17:25 → ICU 19:38 → MS3 07-20 00:09
PROVIDERS: ADMIT Internal Medicine; ATTEND Internal Medicine
PROC: 30233N1 Transfusion of Nonautologous Red Blood Cells into Peripheral Vein, Percutaneous Approach (ICD-10-PCS; 2023-07-17)
PROC: 0DB68ZX Excision of Stomach, Via Natural or Artificial Opening Endoscopic, Diagnostic (ICD-10-PCS; principal; 2023-07-19 13:45)
DX: D64.89 Other specified anemias (principal); K92.2 Gastrointestinal hemorrhage, unspecified; K29.01 Acute gastritis with bleeding; I11.0 Hypertensive heart disease with heart failure; I50.9 Heart failure, unspecified; E43 Unspecified severe protein-calorie malnutrition; B37.0 Candidal stomatitis; I50.32 Chronic diastolic (congestive) heart failure; I48.91 Unspecified atrial fibrillation; K29.51 Unspecified chronic gastritis with bleeding; D50.0 Iron deficiency anemia secondary to blood loss (chronic); E87.6 Hypokalemia; I25.10 Atherosclerotic heart disease of native coronary artery without angina pectoris; I25.2 Old myocardial infarction; M32.9 Systemic lupus erythematosus, unspecified; F41.9 Anxiety disorder, unspecified; I95.9 Hypotension, unspecified; S49.92XA Unspecified injury of left shoulder and upper arm, initial encounter; X58.XXXA Exposure to other specified factors, initial encounter; Z68.26 Body mass index [BMI] 26.0-26.9, adult; Z79.01 Long term (current) use of anticoagulants; Z79.899 Other long term (current) drug therapy; Z90.49 Acquired absence of other specified parts of digestive tract; Z96.612 Presence of left artificial shoulder joint
CPT/HCPCS: 36415; 71045; 80048; 80053; 81001; 82272; 82330; 83540; 83605; 83735; 83880; 84100; 84132; 84466; 85014; 85018; 85025; 86140; 86850; 86900; 86901; 86920; 87040; 87150; 93005; 93306; 97162; 97166; 97530; 99285; A9270; J8499; P9016; 87086

== ENCOUNTER 2023-07-28 15:46 | Outpatient (CLI) | payer MEDICARE, OTHER ==
[2023-07-28 16:00] LABS: BASOPHILS % (AUTO) 0.6 %; EOSINOPHILS # (AUTO) 0.1 10^3/uL (0.0-0.7); HCT - HEMATOCRIT 30.8 % (37.0-47.0); HGB - HEMOGLOBIN 9.7 g/dL (12.0-16.0); LYMPHOCYTES # (AUTO) 0.6 10^3/uL (1.5-3.5); LYMPHOCYTES % (AUTO) 9.2 %; MEAN CORPUSCULAR HEMOGLOBIN 29.5 pg (27.0-31.0); MEAN CORPUSCULAR HGB CONC 31.5 g/dL (32.0-36.0); MEAN CORPUSCULAR VOLUME 93.6 fL (81.0-99.0); MEAN PLATELET VOLUME 9.5 fL (7.9-10.8); MONOCYTES # (AUTO) 0.5 10^3/uL (0.0-1.0); MONOCYTES % (AUTO) 7.6 %; NEUTROPHILS # (AUTO) 5.2 10^3/uL (1.5-6.6); NEUTROPHILS % (AUTO) 80.3 %; PLT - PLATELET COUNT 201 10^3/uL (130-450); RED BLOOD COUNT 3.29 10^6/uL (4.20-5.40); RED CELL DISTRIBUTION WIDTH 19.9 % (12.0-15.0); WHITE BLOOD COUNT 6.4 x10^3/uL (4.8-10.8)
[2023-07-28 16:28] LABS: ALBUMIN 3.3 g/dL (3.2-5.5); ALBUMIN/GLOBULIN RATIO 1.8 (1.0-2.2); ALKALINE PHOSPHATASE 149 IU/L (42-121); ALT ALANINE AMINOTRANSFERASE 16 IU/L (10-60); AST ASPARTATE AMINOTRANSFERASE 30 IU/L (10-42); BUN - BLOOD UREA NITROGEN 20 mg/dL (6-20); CALCIUM 9.2 mg/dL (8.5-10.3); CARBON DIOXIDE - CO2 28 mmol/L (21-32); CHLORIDE 101 mmol/L (101-111); CREATININE 0.8 mg/dL (0.6-1.3); CRP - C-REACTIVE PROTEIN < 0.5 mg/dL (<0.5); GFR - MDRD 69 (>89); GLUCOSE 105 mg/dL (74-104); POTASSIUM 3.4 mmol/L (3.5-4.5); SODIUM 135 mmol/L (135-145); TOTAL PROTEIN 5.1 g/dL (6.4-8.9)
== END 2023-07-28 15:47 | disposition home or self-care (01) ==
LOC: LAB 15:46
PROVIDERS: ATTEND Internal Medicine Infectious Disease
DX: T84.59XD Infection and inflammatory reaction due to other internal joint prosthesis, subsequent encounter (principal); Z96.619 Presence of unspecified artificial shoulder joint
CPT/HCPCS: 36415; 80053; 85025; 85651; 86140

== ENCOUNTER 2023-08-05 14:39 | Outpatient (CLI) | payer MEDICARE, OTHER ==
[2023-08-05 14:51] LABS: BASOPHILS % (AUTO) 0.7 %; EOSINOPHILS # (AUTO) 0.1 10^3/uL (0.0-0.7); EOSINOPHILS % (AUTO) 1.7 %; HCT - HEMATOCRIT 31.7 % (37.0-47.0); LYMPHOCYTES # (AUTO) 0.7 10^3/uL (1.5-3.5); LYMPHOCYTES % (AUTO) 12.7 %; MEAN CORPUSCULAR HEMOGLOBIN 29.5 pg (27.0-31.0); MEAN CORPUSCULAR HGB CONC 31.5 g/dL (32.0-36.0); MEAN CORPUSCULAR VOLUME 93.5 fL (81.0-99.0); MEAN PLATELET VOLUME 9.4 fL (7.9-10.8); MONOCYTES # (AUTO) 0.5 10^3/uL (0.0-1.0); MONOCYTES % (AUTO) 8.5 %; NEUTROPHILS # (AUTO) 4.4 10^3/uL (1.5-6.6); NEUTROPHILS % (AUTO) 76.1 %; PLT - PLATELET COUNT 181 10^3/uL (130-450); RED BLOOD COUNT 3.39 10^6/uL (4.20-5.40); RED CELL DISTRIBUTION WIDTH 19.7 % (12.0-15.0); WHITE BLOOD COUNT 5.8 x10^3/uL (4.8-10.8)
[2023-08-05 15:06] LABS: ALBUMIN 3.3 g/dL (3.2-5.5); ALBUMIN/GLOBULIN RATIO 2.1 (1.0-2.2); ALKALINE PHOSPHATASE 166 IU/L (42-121); ALT ALANINE AMINOTRANSFERASE 18 IU/L (10-60); AST ASPARTATE AMINOTRANSFERASE 32 IU/L (10-42); BILIRUBIN,TOTAL 0.8 mg/dL (0.2-1.0); BUN - BLOOD UREA NITROGEN 31 mg/dL (6-20); CALCIUM 9.1 mg/dL (8.5-10.3); CARBON DIOXIDE - CO2 30 mmol/L (21-32); CHLORIDE 100 mmol/L (101-111); CREATININE 0.9 mg/dL (0.6-1.3); CRP - C-REACTIVE PROTEIN < 0.5 mg/dL (<0.5); GFR - MDRD 61 (>89); GLUCOSE 73 mg/dL (74-104); POTASSIUM 4.1 mmol/L (3.5-4.5); SODIUM 135 mmol/L (135-145); TOTAL PROTEIN 4.9 g/dL (6.4-8.9)
== END 2023-08-05 14:40 | disposition home or self-care (01) ==
LOC: LAB 14:39
PROVIDERS: ATTEND Family Medicine
DX: T84.59XD Infection and inflammatory reaction due to other internal joint prosthesis, subsequent encounter (principal); Z96.619 Presence of unspecified artificial shoulder joint
CPT/HCPCS: 36415; 80053; 85025; 85651; 86140

== ENCOUNTER 2023-08-12 15:49 | Outpatient (CLI) | payer MEDICARE, OTHER ==
[2023-08-12 16:01] LABS: BASOPHILS % (AUTO) 0.5 %; EOSINOPHILS # (AUTO) 0.1 10^3/uL (0.0-0.7); EOSINOPHILS % (AUTO) 1.1 %; HCT - HEMATOCRIT 29.9 % (37.0-47.0); HGB - HEMOGLOBIN 9.8 g/dL (12.0-16.0); LYMPHOCYTES # (AUTO) 0.6 10^3/uL (1.5-3.5); LYMPHOCYTES % (AUTO) 11.4 %; MEAN CORPUSCULAR HGB CONC 32.8 g/dL (32.0-36.0); MEAN CORPUSCULAR VOLUME 91.4 fL (81.0-99.0); MEAN PLATELET VOLUME 9.9 fL (7.9-10.8); MONOCYTES # (AUTO) 0.4 10^3/uL (0.0-1.0); MONOCYTES % (AUTO) 7.5 %; NEUTROPHILS # (AUTO) 4.4 10^3/uL (1.5-6.6); NEUTROPHILS % (AUTO) 79.3 %; PLT - PLATELET COUNT 161 10^3/uL (130-450); RED BLOOD COUNT 3.27 10^6/uL (4.20-5.40); RED CELL DISTRIBUTION WIDTH 19.3 % (12.0-15.0); WHITE BLOOD COUNT 5.6 x10^3/uL (4.8-10.8)
[2023-08-12 16:33] LABS: ALBUMIN 3.2 g/dL (3.2-5.5); ALBUMIN/GLOBULIN RATIO 1.8 (1.0-2.2); BILIRUBIN,TOTAL 1.1 mg/dL (0.2-1.0); CALCIUM 9.2 mg/dL (8.5-10.3); CREATININE 0.8 mg/dL (0.6-1.3); CRP - C-REACTIVE PROTEIN 0.5 mg/dL (<0.5)
== END 2023-08-12 15:50 | disposition home or self-care (01) ==
LOC: LAB 15:49
PROVIDERS: ATTEND Family Medicine
DX: T84.59XD Infection and inflammatory reaction due to other internal joint prosthesis, subsequent encounter (principal); Z96.619 Presence of unspecified artificial shoulder joint
CPT/HCPCS: 36415; 80053; 85025; 85651; 86140

== ENCOUNTER 2023-09-02 15:36 | Outpatient (CLI) | payer MEDICARE, OTHER ==
[2023-09-02 15:58] LABS: BASOPHILS % (AUTO) 0.8 %; EOSINOPHILS # (AUTO) 0.1 10^3/uL (0.0-0.7); EOSINOPHILS % (AUTO) 1.7 %; HCT - HEMATOCRIT 24.1 % (37.0-47.0); HGB - HEMOGLOBIN 7.7 g/dL (12.0-16.0); LYMPHOCYTES # (AUTO) 0.6 10^3/uL (1.5-3.5); LYMPHOCYTES % (AUTO) 11.3 %; MEAN CORPUSCULAR HEMOGLOBIN 31.2 pg (27.0-31.0); MEAN CORPUSCULAR VOLUME 97.6 fL (81.0-99.0); MEAN PLATELET VOLUME 9.1 fL (7.9-10.8); MONOCYTES # (AUTO) 0.5 10^3/uL (0.0-1.0); MONOCYTES % (AUTO) 8.9 %; NEUTROPHILS # (AUTO) 4.1 10^3/uL (1.5-6.6); NEUTROPHILS % (AUTO) 76.9 %; PLT - PLATELET COUNT 246 10^3/uL (130-450); RED BLOOD COUNT 2.47 10^6/uL (4.20-5.40); RED CELL DISTRIBUTION WIDTH 21.7 % (12.0-15.0); WHITE BLOOD COUNT 5.3 x10^3/uL (4.8-10.8)
[2023-09-02 16:04] LABS: SLIDE REVIEW? Indicated
[2023-09-02 16:33] LABS: ALBUMIN 3.1 g/dL (3.2-5.5); ALBUMIN/GLOBULIN RATIO 1.8 (1.0-2.2); ALKALINE PHOSPHATASE 122 IU/L (42-121); ALT ALANINE AMINOTRANSFERASE 21 IU/L (10-60); AST ASPARTATE AMINOTRANSFERASE 29 IU/L (10-42); BILIRUBIN,TOTAL 0.8 mg/dL (0.2-1.0); BUN - BLOOD UREA NITROGEN 22 mg/dL (6-20); CALCIUM 8.8 mg/dL (8.5-10.3); CARBON DIOXIDE - CO2 29 mmol/L (21-32); CHLORIDE 103 mmol/L (101-111); CREATININE 0.7 mg/dL (0.6-1.3); CRP - C-REACTIVE PROTEIN < 0.5 mg/dL (<0.5); GFR - MDRD 81 (>89); GLUCOSE 100 mg/dL (74-104); POTASSIUM 4.1 mmol/L (3.5-4.5); SODIUM 137 mmol/L (135-145); TOTAL PROTEIN 4.8 g/dL (6.4-8.9)
[2023-09-02 17:27] LABS: PLATELET ESTIMATE, MANUAL NORMAL (130-450,000) (NORMAL); PLATELET MORPHOLOGY NORMAL APPEARANCE (NORMAL)
== END 2023-09-02 15:37 | disposition home or self-care (01) ==
LOC: LAB 15:36
PROVIDERS: ATTEND Family Medicine
DX: T84.59XD Infection and inflammatory reaction due to other internal joint prosthesis, subsequent encounter (principal); Z96.619 Presence of unspecified artificial shoulder joint
CPT/HCPCS: 36415; 80053; 85025; 85651; 86140

== ENCOUNTER 2023-09-13 15:32 | Outpatient (CLI) | payer MEDICARE, OTHER ==
[2023-09-13 15:45] LABS: BASOPHILS % (AUTO) 0.6 %; EOSINOPHILS # (AUTO) 0.1 10^3/uL (0.0-0.7); EOSINOPHILS % (AUTO) 2.3 %; HCT - HEMATOCRIT 27.2 % (37.0-47.0); HGB - HEMOGLOBIN 8.3 g/dL (12.0-16.0); LYMPHOCYTES # (AUTO) 0.7 10^3/uL (1.5-3.5); LYMPHOCYTES % (AUTO) 12.9 %; MEAN CORPUSCULAR HEMOGLOBIN 30.7 pg (27.0-31.0); MEAN CORPUSCULAR HGB CONC 30.5 g/dL (32.0-36.0); MEAN CORPUSCULAR VOLUME 100.7 fL (81.0-99.0); MEAN PLATELET VOLUME 9.2 fL (7.9-10.8); MONOCYTES # (AUTO) 0.5 10^3/uL (0.0-1.0); NEUTROPHILS # (AUTO) 3.8 10^3/uL (1.5-6.6); NEUTROPHILS % (AUTO) 73.8 %; PLT - PLATELET COUNT 282 10^3/uL (130-450); RED CELL DISTRIBUTION WIDTH 19.8 % (12.0-15.0); WHITE BLOOD COUNT 5.2 x10^3/uL (4.8-10.8)
[2023-09-13 16:02] LABS: ALBUMIN 3.1 g/dL (3.2-5.5); ALBUMIN/GLOBULIN RATIO 1.7 (1.0-2.2); ALKALINE PHOSPHATASE 133 IU/L (42-121); ALT ALANINE AMINOTRANSFERASE 20 IU/L (10-60); AST ASPARTATE AMINOTRANSFERASE 23 IU/L (10-42); BILIRUBIN,TOTAL 0.8 mg/dL (0.2-1.0); BUN - BLOOD UREA NITROGEN 23 mg/dL (6-20); CARBON DIOXIDE - CO2 31 mmol/L (21-32); CHLORIDE 100 mmol/L (101-111); CREATININE 0.8 mg/dL (0.6-1.3); CRP - C-REACTIVE PROTEIN < 0.5 mg/dL (<0.5); GFR - MDRD 69 (>89); GLUCOSE 79 mg/dL (74-104); POTASSIUM 4.1 mmol/L (3.5-4.5); SODIUM 132 mmol/L (135-145); TOTAL PROTEIN 4.9 g/dL (6.4-8.9)
== END 2023-09-13 15:33 | disposition home or self-care (01) ==
LOC: LAB 15:32
PROVIDERS: ATTEND Family Medicine
DX: D64.9 Anemia, unspecified (principal); T84.59XS Infection and inflammatory reaction due to other internal joint prosthesis, sequela; Z96.619 Presence of unspecified artificial shoulder joint
CPT/HCPCS: 36415; 80053; 85025; 85651; 86140

== ENCOUNTER 2023-09-23 15:25 | Outpatient (CLI) | payer MEDICARE, OTHER ==
[2023-09-23 15:36] LABS: HCT - HEMATOCRIT 23.8 % (37.0-47.0); HGB - HEMOGLOBIN 7.3 g/dL (12.0-16.0)
== END 2023-09-23 15:26 | disposition home or self-care (01) ==
LOC: LAB 15:25
PROVIDERS: ATTEND Nurse Practitioner Primary Care
DX: D64.9 Anemia, unspecified (principal)
CPT/HCPCS: 36415; 85014; 85018

== ENCOUNTER 2023-10-04 15:18 | Outpatient (CLI) | payer MEDICARE, OTHER ==
[2023-10-04 15:45] LABS: HGB - HEMOGLOBIN 7.4 g/dL (12.0-16.0)
== END 2023-10-04 15:19 | disposition home or self-care (01) ==
LOC: LAB 15:18
PROVIDERS: ATTEND Nurse Practitioner Primary Care
DX: D50.0 Iron deficiency anemia secondary to blood loss (chronic) (principal); K92.2 Gastrointestinal hemorrhage, unspecified; Z79.01 Long term (current) use of anticoagulants
CPT/HCPCS: 36415; 85014; 85018

== ENCOUNTER 2023-10-31 16:05 | Outpatient (CLI) | payer MEDICARE, OTHER ==
[2023-10-31 16:19] LABS: BASOPHILS # (AUTO) 0.1 10^3/uL (0.0-0.1); BASOPHILS % (AUTO) 0.8 %; EOSINOPHILS # (AUTO) 0.2 10^3/uL (0.0-0.7); HCT - HEMATOCRIT 23.6 % (37.0-47.0); LYMPHOCYTES # (AUTO) 0.7 10^3/uL (1.5-3.5); LYMPHOCYTES % (AUTO) 8.6 %; MEAN CORPUSCULAR HEMOGLOBIN 26.9 pg (27.0-31.0); MEAN CORPUSCULAR HGB CONC 28.4 g/dL (32.0-36.0); MEAN CORPUSCULAR VOLUME 94.8 fL (81.0-99.0); MEAN PLATELET VOLUME 9.5 fL (7.9-10.8); MONOCYTES # (AUTO) 0.5 10^3/uL (0.0-1.0); MONOCYTES % (AUTO) 6.8 %; NEUTROPHILS # (AUTO) 6.2 10^3/uL (1.5-6.6); NEUTROPHILS % (AUTO) 81.4 %; PLT - PLATELET COUNT 292 10^3/uL (130-450); RED BLOOD COUNT 2.49 10^6/uL (4.20-5.40); RED CELL DISTRIBUTION WIDTH 16.4 % (12.0-15.0); WHITE BLOOD COUNT 7.7 x10^3/uL (4.8-10.8)
[2023-10-31 16:43] LABS: HGB - HEMOGLOBIN 6.7 g/dL (12.0-16.0); SLIDE REVIEW? Indicated
[2023-10-31 16:48] LABS: ALBUMIN 3.1 g/dL (3.2-5.5); ALBUMIN/GLOBULIN RATIO 1.5 (1.0-2.2); BILIRUBIN,TOTAL 0.9 mg/dL (0.2-1.0); CALCIUM 8.9 mg/dL (8.5-10.3); CREATININE 0.7 mg/dL (0.6-1.3); POTASSIUM 3.7 mmol/L (3.5-4.5); TOTAL PROTEIN 5.2 g/dL (6.4-8.9)
[2023-10-31 17:15] LABS: PLATELET ESTIMATE, MANUAL NORMAL (130-450,000) (NORMAL); PLATELET MORPHOLOGY NORMAL APPEARANCE (NORMAL)
== END 2023-10-31 16:06 | disposition home or self-care (01) ==
LOC: LAB 16:05
PROVIDERS: ATTEND Internal Medicine Infectious Disease
DX: T84.59XD Infection and inflammatory reaction due to other internal joint prosthesis, subsequent encounter (principal); Z96.619 Presence of unspecified artificial shoulder joint
CPT/HCPCS: 36415; 80053; 85025; 85651; 86140

== ENCOUNTER 2023-11-11 15:29 | Outpatient (CLI) | payer MEDICARE, OTHER ==
[2023-11-11 15:47] LABS: HCT - HEMATOCRIT 30.6 % (37.0-47.0); HGB - HEMOGLOBIN 8.9 g/dL (12.0-16.0)
== END 2023-11-11 15:30 | disposition home or self-care (01) ==
LOC: LAB 15:29
PROVIDERS: ATTEND Nurse Practitioner Primary Care
DX: D50.0 Iron deficiency anemia secondary to blood loss (chronic) (principal); K92.2 Gastrointestinal hemorrhage, unspecified; Z79.01 Long term (current) use of anticoagulants
CPT/HCPCS: 36415; 85014; 85018

== ENCOUNTER 2024-01-02 23:07 | Emergency (ER) | payer MEDICARE, OTHER ==
[2024-01-02 23:17] VITALS: BP 165/104; O2SAT 95
--- NOTE | 2024-01-03 00:18 | ED Physician Documentation ---
PD ALMEIDA HEENT - Stated complaint Stated Complaint: NOSEBLEED - Chief complaint Chief Complaint: Heent - History obtained from History obtained from: Patient, Family - Additional information Additional information: The patient comes to the emergency department with chief complaint of epistaxis that started a couple of hours ago. The patient was seen by ENT in [place] earlier today and had a cautery of a location in her nose that appeared to be the source of some epistaxis she had had over the last couple months. The patient's last episode of bleeding was November 26 but she cannot get into see ENT until today. They decided to cauterize the spot that they thought had caused the trouble before. She was told to have a little bleeding when the scab comes off. However, the patient states she began to have dripping of bright red blood from her nose around 2029 and that this just kept going on and on. She tried using Afrin at home and holding pressure but to no avail. The patient states that it was going down her throat and going over to the other side of her nose. She is on Eliquis for atrial fibrillation and has had issues with bleeding from other locations previously. No other complaints at this time. PD PAST MEDICAL HISTORY - Past Medical History Cardiovascular: Congestive heart failure, Hypertension, Coronary artery disease, [place], Atrial fibrillation Respiratory: Pneumonia Neuro: Migraines, Peripheral neuropathy Endocrine/Autoimmune: Systemic lupus erythematosus GI: GI bleed, Hemorrhoids, Diverticulitis TEA BLENDER: Breast cancer : None HEENT: None Psych: Anxiety Musculoskeletal: Osteoarthritis, Scoliosis, Chronic back pain Derm: None - Past Surgical History Past Surgical History: Yes General: Bowel surgery, Colonoscopy, Other Ortho: Hip replacement, Knee replacement, Shoulder arthroplasty HEENT: Cataracts - Present Medications Home Medications: Ambulatory Orders Medication Instructions Recorded Confirmed Hydroxychloroquine [Plaquenil] 400 mg PO QPM 04/10/17 01/02/24 Sertraline [Zoloft] 100 mg PO QPM 04/10/17 01/02/24 carvediloL [Carvedilol] 25 mg PO BIDWM 04/10/17 01/02/24 Acetaminophen [Tylenol] 1 tab PO BID PRN 10/20/22 01/02/24 Atorvastatin [Lipitor] 10 mg PO HS 10/20/22 01/02/24 Bifidobacterium Infantis [Align] 2 tab PO BID 10/20/22 01/02/24 Cholecalciferol [Vitamin D3] 5,000 unit PO DAILY 10/20/22 01/02/24 LORazepam [Lorazepam] 2 mg PO HS PRN 10/20/22 01/02/24 Multivitamin [Theragran] 1 tab PO DAILY 10/20/22 01/02/24 Naloxone HCl Nasal [Narcan Nasal] 1 spray HELIO PRN PRN 10/20/22 07/18/23 Vitamin B Complex 1 tab PO DAILY 10/20/22 01/02/24 Doxycycline [Vibramycin] 100 mg PO BID 07/18/23 01/02/24 Furosemide [Lasix] 40 mg PO DAILY 07/18/23 01/02/24 Hydromorphone HCl 4 mg PO BID PRN 07/18/23 01/02/24 Potassium Chloride 30 meq PO QDBREAKFAST 07/18/23 01/02/24 dilTIAZem HCL [Diltiazem 24Hr ER 120 mg PO DAILY 07/18/23 01/02/24 (Xr)] Apixaban [Eliquis] 5 mg PO BID #60 tablet 07/21/23 01/02/24 - Allergies Allergies/Adverse Reactions: Allergies Allergy/AdvReac Type Severity Reaction Status Date / Time prochlorperazine edisylate * Allergy Severe Unknown Verified 01/02/24 23:17 [From Compazine] prochlorperazine Allergy Unknown Verified 01/02/24 23:17 [From Compazine] prochlorperazine maleate * Allergy Unknown Verified 01/02/24 23:17 [From Compazine] codeine AdvReac Severe Emesis Verified 01/02/24 23:17 hydrocodone AdvReac Nausea Verified 01/02/24 23:17 monosodium glutamate AdvReac Emesis Verified 01/02/24 23:17 oxycodone AdvReac Emesis Verified 01/02/24 23:17 - Social History Does the pt smoke?: No Smoking Status: Never smoker Does the pt drink ETOH?: Yes Does the pt have substance abuse?: No - Immunizations Immunizations are current?: No Immunizations: TDAP >10years/unknown - POLST Patient has POLST: No POLST Status: Full Code PD ED PE NORMAL - Vitals Vital signs reviewed: Yes - General General: Alert and oriented X 3, No acute distress, Well developed/nourished - HEENT HEENT: Atraumatic, PERRL, EOMI, Moist mucous membranes, Other (Bloody residue a round bilateral nares. Nasal clamps are in place with no obvious active bleeding. Bloody residue in posterior pharynx.) - Neck Neck: Supple, no meningeal sign - Respiratory Respiratory: No respiratory distress - Derm Derm: Normal color, Warm and dry - Extremities Extremities: No deformity - Neuro Neuro: Alert and oriented X 3 - Psych Psych: Normal mood, Normal affect Results - Vitals Vitals: Vital Signs - 24 hr 01/02/24 23:10 Temperature 37 C Heart Rate 79 Respiratory 16 Rate Blood Pressure 165/104 H O2 Saturation 95 Oxygen O2 Source Room air Procedures - Epistaxis - Minor Site: Right Preparation: Clots removed, Other Treatment: Anterior rhinorocket (Impregnated with TXA), Packing inserted Other: Observed - no bleeding, Pt tolerated well, O2 sat WNL, Referred to ENT PD Medical Decision Making - ED course Complexity details: considered differential, d/w patient, d/w family ED course: I did pack the patient's nose with an anterior Rhino Rocket, and I discussed with the patient and her that they would need to call ENT first thing in the morning and let them know what has happened. The patient should follow-up with ENT if at all possible to have the packing removed in 2 to 7 days. The patient is expressed understanding. We have discussed the usual indications for return. Departure - Departure Disposition: 01 Home, Self Care Clinical Impression: Epistaxis Instructions: ED Nosebleed Comments: Packing has been placed in your nose tonight. This should stay in for at least 2 days and as many as 7. It is important that you call the ENT office first thing tomorrow morning and let them know that you had to come to the ER for the bleeding to get your dose packed tonight. They should hopefully be the ones to follow-up with you about your packing. If you are unable to be seen in the ENT clinic within 7 days, then you should return here in 7 days to have your packing removed. Please continue your Eliquis as usual. Do not try to remove the packing yourself. Try to avoid bending over with your head down, sneezing, coughing, or straining to order to help prevent any further stress to the vessels in your nose.
== END 2024-01-03 00:35 | disposition home or self-care (01) ==
LOC: ED 23:07
DX: R04.0 Epistaxis (principal); Z79.01 Long term (current) use of anticoagulants; I48.91 Unspecified atrial fibrillation
CPT/HCPCS: 30901; 99283

== ENCOUNTER 2024-01-31 15:14 | Outpatient (CLI) | payer MEDICARE, OTHER ==
[2024-01-31 15:38] LABS: BASOPHILS # (AUTO) 0.1 10^3/uL (0.0-0.1); BASOPHILS % (AUTO) 0.9 %; EOSINOPHILS % (AUTO) 0.4 %; HCT - HEMATOCRIT 26.2 % (37.0-47.0); HGB - HEMOGLOBIN 7.5 g/dL (12.0-16.0); LYMPHOCYTES # (AUTO) 0.6 10^3/uL (1.5-3.5); LYMPHOCYTES % (AUTO) 10.3 %; MEAN CORPUSCULAR HEMOGLOBIN 24.8 pg (27.0-31.0); MEAN CORPUSCULAR HGB CONC 28.6 g/dL (32.0-36.0); MEAN CORPUSCULAR VOLUME 86.5 fL (81.0-99.0); MEAN PLATELET VOLUME 9.3 fL (7.9-10.8); MONOCYTES # (AUTO) 0.4 10^3/uL (0.0-1.0); MONOCYTES % (AUTO) 8.1 %; NEUTROPHILS # (AUTO) 4.4 10^3/uL (1.5-6.6); NEUTROPHILS % (AUTO) 79.9 %; PLT - PLATELET COUNT 254 10^3/uL (130-450); RED BLOOD COUNT 3.03 10^6/uL (4.20-5.40); RED CELL DISTRIBUTION WIDTH 17.6 % (12.0-15.0); WHITE BLOOD COUNT 5.4 x10^3/uL (4.8-10.8)
[2024-01-31 16:19] LABS: ALBUMIN 3.2 g/dL (3.2-5.5); ALBUMIN/GLOBULIN RATIO 1.5 (1.0-2.2); ALKALINE PHOSPHATASE 137 IU/L (42-121); ALT ALANINE AMINOTRANSFERASE 13 IU/L (10-60); AST ASPARTATE AMINOTRANSFERASE 22 IU/L (10-42); BILIRUBIN,TOTAL 0.9 mg/dL (0.2-1.0); BUN - BLOOD UREA NITROGEN 24 mg/dL (6-20); CALCIUM 9.3 mg/dL (8.5-10.3); CARBON DIOXIDE - CO2 30 mmol/L (21-32); CHLORIDE 100 mmol/L (101-111); CREATININE 0.8 mg/dL (0.6-1.3); CRP - C-REACTIVE PROTEIN < 0.5 mg/dL (<0.5); GFR - MDRD 69 (>89); GLUCOSE 95 mg/dL (74-104); POTASSIUM 4.1 mmol/L (3.5-4.5); SODIUM 135 mmol/L (135-145); TOTAL PROTEIN 5.3 g/dL (6.4-8.9)
== END 2024-01-31 15:15 | disposition home or self-care (01) ==
LOC: LAB 15:14
PROVIDERS: ATTEND Internal Medicine Infectious Disease
DX: T84.59XD Infection and inflammatory reaction due to other internal joint prosthesis, subsequent encounter (principal); Z96.619 Presence of unspecified artificial shoulder joint
CPT/HCPCS: 36415; 80053; 85025; 85651; 86140

== ENCOUNTER 2024-02-21 14:09 | Outpatient (CLI) | payer MEDICARE, OTHER ==
[2024-02-21 15:41] LABS: HCT - HEMATOCRIT 22.6 % (37.0-47.0)
[2024-02-21 15:48] LABS: HGB - HEMOGLOBIN 6.4 g/dL (12.0-16.0)
== END 2024-02-21 14:10 | disposition home or self-care (01) ==
LOC: LAB 14:09
PROVIDERS: ATTEND Nurse Practitioner Primary Care
DX: D50.0 Iron deficiency anemia secondary to blood loss (chronic) (principal); K92.2 Gastrointestinal hemorrhage, unspecified; Z79.01 Long term (current) use of anticoagulants
CPT/HCPCS: 36415; 85014; 85018

== ENCOUNTER 2024-02-25 08:00 | Outpatient (CLI) | payer MEDICARE, OTHER ==
[2024-02-25 18:09] LABS: FECAL OCCULT BLOOD (FIT) POSITIVE (NEGATIVE)
== END 2024-02-25 23:59 | disposition home or self-care (01) ==
LOC: LAB.R 08:00
PROVIDERS: ATTEND Nurse Practitioner Primary Care
DX: D64.9 Anemia, unspecified (principal); R53.83 Other fatigue
CPT/HCPCS: 82270; 82274

== ENCOUNTER 2024-03-15 15:10 | Outpatient (CLI) | payer MEDICARE, OTHER ==
[2024-03-15 15:24] LABS: HCT - HEMATOCRIT 27.6 % (37.0-47.0); HGB - HEMOGLOBIN 8.3 g/dL (12.0-16.0)
== END 2024-03-15 15:11 | disposition home or self-care (01) ==
LOC: LAB 15:10
PROVIDERS: ATTEND Nurse Practitioner Primary Care
DX: D50.0 Iron deficiency anemia secondary to blood loss (chronic) (principal); K92.2 Gastrointestinal hemorrhage, unspecified; Z79.01 Long term (current) use of anticoagulants
CPT/HCPCS: 36415; 85014; 85018

== ENCOUNTER 2024-04-02 15:09 | Outpatient (CLI) | payer MEDICARE, OTHER ==
[2024-04-02 15:41] LABS: HCT - HEMATOCRIT 27.8 % (37.0-47.0)
== END 2024-04-02 15:10 | disposition home or self-care (01) ==
LOC: LAB 15:09
PROVIDERS: ATTEND Nurse Practitioner Primary Care
DX: D50.0 Iron deficiency anemia secondary to blood loss (chronic) (principal); K92.2 Gastrointestinal hemorrhage, unspecified; Z79.01 Long term (current) use of anticoagulants
CPT/HCPCS: 36415; 85014; 85018

== ENCOUNTER 2024-05-21 15:12 | Outpatient (CLI) | payer MEDICARE, OTHER ==
[2024-05-21 15:34] LABS: BASOPHILS % (AUTO) 0.4 %; EOSINOPHILS % (AUTO) 0.4 %; HCT - HEMATOCRIT 31.1 % (37.0-47.0); HGB - HEMOGLOBIN 9.2 g/dL (12.0-16.0); LYMPHOCYTES # (AUTO) 0.5 10^3/uL (1.5-3.5); LYMPHOCYTES % (AUTO) 6.3 %; MEAN CORPUSCULAR HEMOGLOBIN 28.4 pg (27.0-31.0); MEAN CORPUSCULAR HGB CONC 29.6 g/dL (32.0-36.0); MONOCYTES # (AUTO) 0.4 10^3/uL (0.0-1.0); MONOCYTES % (AUTO) 5.1 %; NEUTROPHILS # (AUTO) 7.3 10^3/uL (1.5-6.6); NEUTROPHILS % (AUTO) 87.4 %; PLT - PLATELET COUNT 265 10^3/uL (130-450); RED BLOOD COUNT 3.24 10^6/uL (4.20-5.40); RED CELL DISTRIBUTION WIDTH 25.4 % (12.0-15.0); WHITE BLOOD COUNT 8.4 x10^3/uL (4.8-10.8)
[2024-05-21 15:36] LABS: SLIDE REVIEW? Indicated
[2024-05-21 16:07] LABS: ALBUMIN 3.2 g/dL (3.2-5.5); ALBUMIN/GLOBULIN RATIO 1.6 (1.0-2.2); BILIRUBIN,TOTAL 1.8 mg/dL (0.2-1.0); CREATININE 0.8 mg/dL (0.6-1.3); CRP - C-REACTIVE PROTEIN 4.6 mg/dL (<0.5); POTASSIUM 4.4 mmol/L (3.5-4.5); TOTAL PROTEIN 5.2 g/dL (6.4-8.9)
[2024-05-21 16:17] LABS: PLATELET ESTIMATE, MANUAL NORMAL (130-450,000) (NORMAL); PLATELET MORPHOLOGY NORMAL APPEARANCE (NORMAL)
== END 2024-05-21 15:13 | disposition home or self-care (01) ==
LOC: LAB 15:12
PROVIDERS: ATTEND Family Medicine
DX: T84.59XD Infection and inflammatory reaction due to other internal joint prosthesis, subsequent encounter (principal); Z96.619 Presence of unspecified artificial shoulder joint
CPT/HCPCS: 36415; 80053; 85025; 85651; 86140

== ENCOUNTER 2024-05-24 17:50 | Inpatient (IN) | payer MEDICARE, OTHER ==
--- NOTE | 2024-05-24 18:27 | ED Physician Documentation ---
History of Present Illness - Stated complaint Stated Complaint: BED SORES - Chief complaint Chief Complaint: General - History obtained from History obtained from: Patient, Family () - History of Present Illness Timing: Prior to arrival - Additonal information Additional information: Patient is a 78-year-old female presenting to the emergency department with past medical history of atrial fibrillation, anemia, history of CHF, coronary artery disease and history of GI bleed on Eliquis. Patient presents to the emergency department with worsening bed sore. Patient was seen in urgent care center for about a week and a half and was being treated by urgent care for her symptoms. Today patient's bedsore has gone from grade 1 to grade 3 on evaluation with foul-smelling from the wound. Patient has remained afebrile and nontachycardic. Her is her main caregiver and has been providing majority of at home and cares for her. He notes patient's bedsore and bedbound is provoked by left hip arthroplasty she is needing but has history of anemia preventing her from getting the surgery. 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: Breast cancer : None HEENT: None Psych: Anxiety Musculoskeletal: Osteoarthritis, Scoliosis, Chronic back pain Derm: None - Past Surgical History Past Surgical History: Yes General: Bowel surgery, Colonoscopy, Other Ortho: Hip replacement, Knee replacement, Shoulder arthroplasty HEENT: Cataracts - Present Medications Home Medications: Ambulatory Orders Medication Instructions Recorded Confirmed Hydroxychloroquine [Plaquenil] 400 mg PO QPM 04/10/17 01/02/24 Sertraline [Zoloft] 100 mg PO QPM 04/10/17 01/02/24 carvediloL [Carvedilol] 25 mg PO BIDWM 04/10/17 01/02/24 Acetaminophen [Tylenol] 1 tab PO BID PRN 10/20/22 01/02/24 Atorvastatin [Lipitor] 10 mg PO HS 10/20/22 01/02/24 Bifidobacterium Infantis [Align] 2 tab PO BID 10/20/22 01/02/24 Cholecalciferol [Vitamin D3] 5,000 unit PO DAILY 10/20/22 01/02/24 LORazepam [Lorazepam] 2 mg PO HS PRN 10/20/22 01/02/24 Multivitamin [Theragran] 1 tab PO DAILY 10/20/22 01/02/24 Naloxone HCl Nasal [Narcan Nasal] 1 spray HELIO PRN PRN 10/20/22 07/18/23 Vitamin B Complex 1 tab PO DAILY 10/20/22 01/02/24 Doxycycline [Vibramycin] 100 mg PO BID 07/18/23 01/02/24 Furosemide [Lasix] 40 mg PO DAILY 07/18/23 01/02/24 Hydromorphone HCl 4 mg PO BID PRN 07/18/23 01/02/24 Potassium Chloride 30 meq PO QDBREAKFAST 07/18/23 01/02/24 dilTIAZem HCL [Diltiazem 24Hr ER 120 mg PO DAILY 07/18/23 01/02/24 (Xr)] Apixaban [Eliquis] 5 mg PO BID #60 tablet 07/21/23 01/02/24 - Allergies Allergies/Adverse Reactions: Allergies Allergy/AdvReac Type Severity Reaction Status Date / Time prochlorperazine edisylate * Allergy Severe Unknown Verified 05/24/24 18:02 [From Compazine] prochlorperazine Allergy Unknown Verified 05/24/24 18:02 [From Compazine] prochlorperazine maleate * Allergy Unknown Verified 05/24/24 18:02 [From Compazine] codeine AdvReac Severe Emesis Verified 05/24/24 18:02 hydrocodone AdvReac Nausea Verified 05/24/24 18:02 monosodium glutamate AdvReac Emesis Verified 05/24/24 18:02 oxycodone AdvReac Emesis Verified 05/24/24 18:02 - Social History Does the pt smoke?: No Smoking Status: Never smoker Does the pt drink ETOH?: Yes Does the pt have substance abuse?: No - Immunizations Immunizations are current?: No Immunizations: TDAP >10years/unknown - POLST Patient has POLST: No POLST Status: Full Code PD ED PE NORMAL - Vitals Vital signs reviewed: Yes - General General: Alert and oriented X 3, Other (Patient does not appear well nourished or developed.) - HEENT HEENT: Atraumatic, Moist mucous membranes - Neck Neck: Supple, no meningeal sign - Cardiac Cardiac: RRR, No gallop - Respiratory Respiratory: No respiratory distress, Clear bilaterally - Abdomen Abdomen: Other (Palpable soft hernia reducible hernia) - Back Back: Other (Significant sacral ulcer with discharge foul-smelling and tunneling appreciated. See wound in nursing note. Significant surrounding erythema on examination extending into the perineum. ) - Extremities Extremities: Other (Significant 3+ pitting edema noted to bilateral lower extremities with significant swelling appreciated on examination.) - Neuro Neuro: Alert and oriented X 3 Results - Vitals Vitals: Vital Signs - 24 hr 05/24/24 17:55 Temperature 36.8 C Heart Rate 72 Respiratory 16 Rate Blood Pressure 95/59 L O2 Saturation 98 Oxygen O2 Source Room air - Labs Labs: Laboratory Tests 05/24/24 05/24/24 05/24/24 18:51 18:51 18:51 WBC 12.1 H RBC 3.32 L Hgb 9.6 L Hct 32.5 L MCV 97.9 MCH 28.9 MCHC 29.5 L RDW 25.4 H Plt Count 265 MPV 9.8 Neut # (Auto) 11.1 H Lymph # (Auto) 0.5 L Meriwether # (Auto) 0.5 Eos # (Auto) 0.1 Baso # (Auto) 0.0 Absolute Nucleated RBC 0.00 Nucleated RBC % 0.0 Manual Slide Review Indicated Platelet Estimate NORMAL (130-450,000) Platelet Morphology NORMAL APPEARANCE RBC Morph Micro Appear 1+ MICROCYTOSIS PT 18.1 H INR 1.7 H APTT 31.5 Sodium 139 Potassium 4.4 Chloride 103 Carbon Dioxide 31 Anion Gap 5.0 L BUN 37 H Creatinine 0.8 Estimated GFR (MDRD) 69 L Glucose 84 Lactic Acid Calcium 9.0 Magnesium 1.7 Total Bilirubin 1.9 H AST 30 ALT 27 Alkaline Phosphatase 124 H Total Protein 5.3 L Albumin 3.2 Globulin 2.1 Albumin/Globulin Ratio 1.5 05/24/24 20:58 WBC RBC Hgb Hct MCV MCH MCHC RDW Plt Count MPV Neut # (Auto) Lymph # (Auto) Meriwether # (Auto) Eos # (Auto) Baso # (Auto) Absolute Nucleated RBC Nucleated RBC % Manual Slide Review Platelet Estimate Platelet Morphology RBC Morph Micro Appear PT INR APTT Sodium Potassium Chloride Carbon Dioxide Anion Gap BUN Creatinine Estimated GFR (MDRD) Glucose Lactic Acid 1.4 Calcium Magnesium Total Bilirubin AST ALT Alkaline Phosphatase Total Protein Albumin Globulin Albumin/Globulin Ratio PD Medical Decision Making - ED course Complexity details: reviewed old records, reviewed results, re-evaluated patient ED course: Patient is a 78-year-old female presenting to the emergency department with sacral decubitus ulcer going on for about a week and a half patient has been seen by urgent care in outpatient setting and was sent over today after wound appears to be significantly worse. Patient notes significant pain to the area. She is bedbound due to requirements for left hip arthroplasty. She is unable to receive this arthroplasty due to history of anemia. Patient is on Eliquis but no history of recent bleeding. Patient lives at home with her who provides majority of care. Patient has not been on any antibiotics recently for treatment of sacral ulcer. She has follow-up with wound care but not until June. She denies any fevers or chills. Vitals are stable on arrival she is afebrile nontachycardic. Mild soft blood pressures however this is baseline for patient on review of previous vital signs. Physical exam shows significant swelling to bilateral legs decubitus ulcer and lower back shows foul-smelling with extension to the bone surrounding erythema noted to perineal area but no signs of crepitus or fluctuance to the region. Labs here in the emergency department shows mild leukocytosis. Hemoglobin stable at 9. AdditionallyBlood cultures and lactic acid pending at this time. CT abdomen obtained here in the emergency department shows soft tissue gas over sacrum and coccyx overlying where his sacral wound is. No mention of significant cellulitis or extension of gas to perineal area. 2030: Discussed case with Dr. Cano who is agreeable that patient can be admitted overnight he will see patient tomorrow morning. He notes patient can be admitted for IV antibiotics. No surgical emergency at this time low suspicion for necrotizing fasciitis as gas is over the region of wound. There is concerned that this wound could progressively get worse and eventually developed to osteomyelitis though in these are the reasons for admission at this time. Discussed case with hospitalist Dr. Middleton who is agreeable with admission will start on vancomycin, ceftriaxone and Flagyl here in the emergency department. Patient will be admitted to observation status and hospitalist agreeable with this plan. Patient and are agreeable with admission as well. Departure - Departure Disposition: ED Place in Observation Clinical Impression: Sacral decubitus ulcer, stage III
[2024-05-24 18:58] LABS: BASOPHILS % (AUTO) 0.2 %; EOSINOPHILS # (AUTO) 0.1 10^3/uL (0.0-0.7); EOSINOPHILS % (AUTO) 0.4 %; HCT - HEMATOCRIT 32.5 % (37.0-47.0); HGB - HEMOGLOBIN 9.6 g/dL (12.0-16.0); LYMPHOCYTES # (AUTO) 0.5 10^3/uL (1.5-3.5); MEAN CORPUSCULAR HEMOGLOBIN 28.9 pg (27.0-31.0); MEAN CORPUSCULAR HGB CONC 29.5 g/dL (32.0-36.0); MEAN CORPUSCULAR VOLUME 97.9 fL (81.0-99.0); MEAN PLATELET VOLUME 9.8 fL (7.9-10.8); MONOCYTES # (AUTO) 0.5 10^3/uL (0.0-1.0); MONOCYTES % (AUTO) 3.8 %; NEUTROPHILS # (AUTO) 11.1 10^3/uL (1.5-6.6); NEUTROPHILS % (AUTO) 91.4 %; PLT - PLATELET COUNT 265 10^3/uL (130-450); RED BLOOD COUNT 3.32 10^6/uL (4.20-5.40); RED CELL DISTRIBUTION WIDTH 25.4 % (12.0-15.0); WHITE BLOOD COUNT 12.1 x10^3/uL (4.8-10.8)
[2024-05-24 19:04] LABS: SLIDE REVIEW? Indicated
[2024-05-24 19:06] LABS: PARTIAL THROMBOPLASTIN TIME 31.5 secs (24.9-33.3)
[2024-05-24 19:09] LABS: MAGNESIUM 1.7 mg/dL (1.7-2.3)
[2024-05-24 19:11] LABS: INR 1.7 (0.8-1.2); PT - PROTHROMBIN TIME 18.1 secs (9.9-12.6)
[2024-05-24 19:15] LABS: ALBUMIN 3.2 g/dL (3.2-5.5); ALBUMIN/GLOBULIN RATIO 1.5 (1.0-2.2); BILIRUBIN,TOTAL 1.9 mg/dL (0.2-1.0); CREATININE 0.8 mg/dL (0.6-1.3); POTASSIUM 4.4 mmol/L (3.5-4.5); TOTAL PROTEIN 5.3 g/dL (6.4-8.9)
[2024-05-24] MEDS ORDERED: iohexoL-300 100 ML VIAL ONE (19:21)
[2024-05-24 19:25] LABS: PLATELET ESTIMATE, MANUAL NORMAL (130-450,000) (NORMAL); PLATELET MORPHOLOGY NORMAL APPEARANCE (NORMAL)
[2024-05-24] MEDS: iohexoL-300 100 ML VIAL IVP ONE (19:45)
--- NOTE | 2024-05-24 19:55 | CT Report ---
PROCEDURE: Abdomen/Pelvis W INDICATIONS: sacral wound with concern for extension CONTRAST: 100ml [id number] TECHNIQUE: After the administration of intravenous contrast, a CT scan of the abdomen and pelvis was performed. Images were recorded and evaluated at appropriate window settings. Reformats: coronal and sagittal. F or radiation dose reduction, the following was used: automated exposure control, adjustment of mA and /or kV according to patient size. COMPARISON: 10/22/2022 FINDINGS: Image quality: Suboptimal due to positioning, motion artifact and metallic artifact. Lower chest: Cardiomegaly. Small pleural effusions. Smooth interstitial thickening. Central groundgla ss. Liver: No solid mass. Gallbladder: No radiopaque stones or wall thickening. Biliary tree: No intrahepatic or extrahepatic dilation, accounting for age. Spleen: No splenomegaly. Pancreas: No pancreatic ductal dilation. Adrenals: No adrenal nodule. Kidneys and ureters: No hydronephrosis. No renal cystic lesion which requires follow up. No solid mas s. Stomach, bowel and peritoneum: No gastric or small bowel dilation. No abnormal wall thickening. Small volume ascites. Partial colectomy. Lymph nodes: No central or retroperitoneal adenopathy. Vessels: No infrarenal aortic aneurysm. Patent portal vein. PELVIS Reproductive organs: Left adnexal cystic lesion measuring 5.5 cm, unchanged from prior. No internal p apillary projections or enhancing septations, favoring a benign ovarian cyst. Bladder: No abnormal wall thickening, accounting for underdistention. Pelvic lymph nodes: No pelvic adenopathy by size criteria. Bones: No aggressive osseous abnormality. No bony erosion. Left total hip arthroplasty. Severe right hip osteoarthritis. Degenerative changes, predominantly of the lumbar spine. Other: Sacral decubitus ulcer, with gas extending just superficial of the coccyx and sacrum. No drain able fluid collection. Anasarca. IMPRESSION: Sacral decubitus ulcer, with gas extending just superficial of the coccyx and sacrum. No drainable fl uid collection. No bony erosion to suggest osteomyelitis. Moderate pulmonary edema and small pleural effusions. Third spacing of fluids. Reviewed by: Quentin Castro MD on 05/24/2024 7:54 PM PDT Approved by: Quentin Castro MD on 05/24/2024 7:54 PM PDT Station ID: [id number]
[2024-05-24] MEDS ORDERED: cefTRIAXone 1 GM VIAL ONE (21:18)
[2024-05-24] MEDS: cefTRIAXone 1 GM in SODIUM CHLORIDE 0.9% MINIBAG 100 ML IV STA (21:27)
[2024-05-24] MEDS ORDERED: ONDANSETRON 4 MG/2 ML VIAL IVP PRN (21:32)
[2024-05-24] MEDS ORDERED: ONDANSETRON ODT 4 MG TABLET TL PRN (21:32)
[2024-05-24] MEDS ORDERED: HYDROcod/ACETAM 5/325 MG TABLET PO PRN (21:32)
[2024-05-24] MEDS ORDERED: ACETAMINOPHEN 650 MG PO PRN (21:38)
[2024-05-24] MEDS: metroNIDAZOLE 500 MG/100 ML 500 MG/100 ML BAG IV ONE (21:51)
[2024-05-24] MEDS ORDERED: metroNIDAZOLE 500 MG/100 ML 500 MG/100 ML BAG IV SCH (22:00)
--- NOTE | 2024-05-24 22:39 | HISTORY & PHYSICAL EXAMINATION ---
Chief Complaint - Chief Complaint Chief Complaint: wound History of Present Illness - Admitted From Admitted From:: home - History Obtained From Records Reviewed: yes History obtained from: patient Exam Limitations: none - History of Present Illness HPI Comment/Other: Mrs. Vallecillo is a pleasant 78yoF that presented with a history of atrial fibrillation. She presented to the ED for evaluation of worsening sacral wound. She has been less mobile due to right hip which requires replacement. She started to develop some skin breakdown in her sacral area a few weeks prior to presentation.when it did not heal she went to urgent care for evaluation.It has quickly progressed from stage I to stage III in the past few weeks. she has surround area of cellulitis and drainage from the wound. In the Ed, patient vitals were stable, she was afebrile and normatensive. CT was obtained adn was negative for abscess formation or osteomylitis. she was started on antibiotics. Ed physician spoke with general surgeon miguel , who agreed to see in consultation. during my evaluation, patient was not in any acute distress. was present at bedside during my interview.this visit was performed using real-time telehealth tools, including live video. Informed consent was obtained to proceed with this visit using the available tele-health modalities. 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: reports: Breast cancer : reports: None HEENT: reports: None Psych: reports: Anxiety Musculoskeletal: reports: Osteoarthritis, Scoliosis, Chronic back pain Derm: reports: None MRSA Hx?: No - Past Surgical History General: reports: Bowel surgery, Colonoscopy, Other Ortho: reports: Hip replacement, Knee replacement, Shoulder arthroplasty HEENT: reports: Cataracts - Family & Social History Family History Comment/Other: No trend reported in the family Social History Notes: Non smoker - POLST Patient has POLST: No POLST Status: Full Code Meds/Allgy - Home Medications Home Medications: Ambulatory Orders Medication Instructions Recorded Confirmed Hydroxychloroquine [Plaquenil] 400 mg PO QPM 04/10/01/02/24 Sertraline [Zoloft] 100 mg PO QPM 04/10/01/02/24 carvediloL [Carvedilol] 25 mg PO BIDWM 04/10/17 01/02/24 Acetaminophen [Tylenol] 1 tab PO BID PRN 10/20/22 01/02/24 Atorvastatin [Lipitor] 10 mg PO HS 10/20/22 01/02/24 Bifidobacterium Infantis [Align] 2 tab PO BID 10/20/22 01/02/24 Cholecalciferol [Vitamin D3] 5,000 unit PO DAILY 10/20/22 01/02/24 LORazepam [Lorazepam] 2 mg PO HS PRN 10/20/22 01/02/24 Multivitamin [Theragran] 1 tab PO DAILY 10/20/22 01/02/24 Naloxone HCl Nasal [Narcan Nasal] 1 spray HELIO PRN PRN 10/20/22 07/18/23 Vitamin B Complex 1 tab PO DAILY 10/20/22 01/02/24 Doxycycline [Vibramycin] 100 mg PO BID 07/18/23 01/02/24 Furosemide [Lasix] 40 mg PO DAILY 07/18/23 01/02/24 Hydromorphone HCl 4 mg PO BID PRN 07/18/23 01/02/24 Potassium Chloride 30 meq PO QDBREAKFAST 07/18/23 01/02/24 dilTIAZem HCL [Diltiazem 24Hr ER 120 mg PO DAILY 07/18/23 01/02/24 (Xr)] Apixaban [Eliquis] 5 mg PO BID #60 tablet 07/21/23 01/02/24 - Allergies Allergies/Adverse Reactions: Allergies Allergy/AdvReac Type Severity Reaction Status Date / Time prochlorperazine edisylate * Allergy Severe Unknown Verified 05/24/24 18:02 [From Compazine] prochlorperazine Allergy Unknown Verified 05/24/24 18:02 [From Compazine] prochlorperazine maleate * Allergy Unknown Verified 05/24/24 18:02 [From Compazine] codeine AdvReac Severe Emesis Verified 05/24/24 18:02 hydrocodone AdvReac Nausea Verified 05/24/24 18:02 monosodium glutamate AdvReac Emesis Verified 05/24/24 18:02 oxycodone AdvReac Emesis Verified 05/24/24 18:02 Review of Systems - Musculoskeletal Musculoskeletal: reports: Limited range of motion, Joint pain - Hematologic/Lymphatic Hematologic/Lymphatic: reports: Anemia - All Other Systems All Other Systems: reports: Reviewed and negative Exam - Vital Signs Reviewed Vital Signs: Yes Vital Signs: Vital Signs x48h Temp Pulse Resp BP Pulse Ox 05/24/24 22:02 85 18 105/76 92 05/24/24 20:02 81 16 105/72 94 05/24/24 17:55 36.8 C 72 16 95/59 L 98 - Physical Exam General Appearance: positive: No acute distress, Alert Eyes Bilateral: positive: Normal inspection, PERRL Cardiovascular: positive: Regular rate & rhythm, No murmur, No gallop Skin: positive: Decubitus Neurologic/Psychiatric: positive: Oriented x3, Mood/affect nml Sepsis Event Note (H) - Evaluation Current Stage of Sepsis: Ruled out Conclusion/Plan - Problem List (1) Sacral decubitus ulcer, stage III Conclusion/Plan: consultation pending, general surgery/wound care team -continue with conserative wound care, via nursing per protocol until surgeon evaluation -empiric antibiotics continued, broad with MRSA and anerobic coverage -Imaging of pelvis, CT negative for osteomylitis or abscess, report reviewed independently by myself (2) Atrial fibrillation Conclusion/Plan: closely monitor vitals, continuous telemetry -home regimen reviewed and resume as tolerated, eliquis and carvedilol -monitor and replace electrolytes per protocol. - Lab Results Fish Bones: 05/24/24 18:51 05/24/24 18:51 Core Measures - Anticipated LOS I expect patient to be DC'd or transferred within 96 hours.: Yes Telemedicine Consult Details - Provider Location & Consult Time Telemedicine consultation conducted via videoconferencing?: Yes
[2024-05-24] MEDS: VANCOMYCIN INJ 1.25 GM in SODIUM CHLORIDE 0.9% 250 ML IV ONE (23:04)
[2024-05-25] MEDS: ACETAMINOPHEN 325 MG TABLET PO PRN (01:30)
[2024-05-25] MEDS: PIPERACILLIN/TAZOBACTAM 3.375 GM in SODIUM CHLORIDE 0.9% MINIBAG 100 ML IV SCH (01:31)
[2024-05-25] MEDS: SODIUM CHLORIDE FLUSH 0.9% 10 ML SYRINGE IVP SCH (01:32)
[2024-05-25] MEDS: APIXABAN 5 MG TABLET PO SCH (08:32)
[2024-05-25] MEDS: MULTIVITAMIN TABLET PO SCH (08:32)
[2024-05-25] MEDS: carvediloL 12.5 MG TABLET PO SCH (08:32)
[2024-05-25] MEDS: CHOLECALCIFEROL 5,000 UNIT CAPSULE PO SCH (08:32)
[2024-05-25] MEDS: SACCHAROMYCES BOULARDII 250 MG CAPSULE PO SCH (08:32)
[2024-05-25] MEDS: diltiaZEM CD 120 MG CAPSULE PO SCH (08:32)
--- NOTE | 2024-05-25 08:38 | CONSULTATION NOTE ---
Surgery Consult - Admit Date Hospital Admission Date: 05/24/24 - Consult Date Consult Date: 05/25/24 Requesting Provider: Marjorie Salazar - Chief Complaint Chief Complaint: Sacral decubitus ulcer - Home Meds/Allergies Home Medications: Patient History Medication Instructions Recorded Confirmed RX: Hydroxychloroquine [Plaquenil] 400 mg PO QPM 04/10/17 01/02/24 RX: Sertraline [Zoloft] 100 mg PO QPM 04/10/17 01/02/24 RX: carvediloL [Carvedilol] 25 mg PO BIDWM 04/10/17 01/02/24 RX: Acetaminophen [Tylenol] 1 tab PO BID PRN 10/20/22 01/02/24 RX: Atorvastatin [Lipitor] 10 mg PO HS 10/20/22 01/02/24 RX: Bifidobacterium Infantis 2 tab PO BID 10/20/22 01/02/24 [Align] RX: Cholecalciferol [Vitamin D3] 5,000 unit PO DAILY 10/20/22 01/02/24 RX: LORazepam [Lorazepam] 2 mg PO HS PRN 10/20/22 01/02/24 RX: Multivitamin [Theragran] 1 tab PO DAILY 10/20/22 01/02/24 RX: Naloxone HCl Nasal [Narcan 1 spray HELIO PRN PRN 10/20/22 07/18/23 Nasal] RX: Vitamin B Complex 1 tab PO DAILY 10/20/22 01/02/24 RX: Doxycycline [Vibramycin] 100 mg PO BID 07/18/23 01/02/24 RX: Furosemide [Lasix] 40 mg PO DAILY 07/18/23 01/02/24 RX: Hydromorphone HCl 4 mg PO BID PRN 07/18/23 01/02/24 RX: Potassium Chloride 30 meq PO QDBREAKFAST 07/18/23 01/02/24 RX: dilTIAZem HCL [Diltiazem 24Hr 120 mg PO DAILY 07/18/23 01/02/24 ER (Xr)] Allergies/Adverse Reactions: Allergies Allergy/AdvReac Type Severity Reaction Status Date / Time prochlorperazine edisylate * Allergy Severe Unknown Verified 05/24/24 18:02 [From Compazine] prochlorperazine Allergy Unknown Verified 05/24/24 18:02 [From Compazine] prochlorperazine maleate * Allergy Unknown Verified 05/24/24 18:02 [From Compazine] codeine AdvReac Severe Emesis Verified 05/24/24 18:02 hydrocodone AdvReac Nausea Verified 05/24/24 18:02 monosodium glutamate AdvReac Emesis Verified 05/24/24 18:02 oxycodone AdvReac Emesis Verified 05/24/24 18:02 - Vital Signs Vital Signs: Last Vital Signs Temp 97.7 F 05/25/24 08:00 Pulse 105 H 05/25/24 08:00 Resp 18 05/25/24 08:00 BP 119/83 H 05/25/24 08:00 Pulse Ox 96 05/25/24 08:00 O2 Flow Rate Intake & Output: Intake & Output 05/22/24 05/23/24 05/24/24 05/25/24 23:59 23:59 23:59 23:59 Intake Total 440 350 Balance 440 350 - Lab Results Result Diagrams: 05/24/24 18:51 05/24/24 18:51 - Consultation Note Consultation Note: S: Gaye is a 78 year old home bound female who has multiple medical problems and was admitted to the Medical Hospitalist Service last evening for failed out- patient management of a sacral decubitus ulcer. She has been scheduled for a hip arthroplasty but this has been postponed due to a chronic anemia. She has been minimally mobile at home and has now developed a sacral decubitus ulcer. I am asked to assist in the evaluation and management of this sacral decubitus ulcer. PMH CHF, HTN, CAD, History CA, A Fib, History pneumonia, Migraines, Neuropathy, SLE, History GI bleed, Diverticulitis, Osteoarthritis, Anxiety PSH Hip replacement surgery, Knee replacement, Shoulder arthroplasty, Cataract SH: Non-smoker O: At the time of my evaluation, gaye did not appear ill although she is too weak and frail to turn herself in bed. VSS (mild tachycardia) AAO - Eating breakfast In the right lateral decubitus position, the sacral region is examined. There is complete loss of epidermis and subcutaneous tissue over the sacrum manifested by the creation of a 4-5 cm in diameter ulcer. The skin surrounding this ulcer is erythematous and there is ecchymosis of the skin inferior to the ulcer edge. There is no visibly viable subcutaneous tissue and a leathery eschar covers the base of the wound. There is no purulence or fluctuance. Bone is not visible. Labs: TP 5.3; Alb 3.2 H&H 9.6/32.5; WBC 12.1 Imaging: CT - Sacral ulcer without bone involvement - Images reviewed by me - VALORIE Assessment: 1) Stage 3-4 sacral decubitus ulcer with non-viable tissue at base and surrounding cellulitus. This condition was present at the time of admission. Recommendation: 1) Excisional debridement of the non-viable tissue in the OR under IV sedation 2) Local wound care to promote healing after #1 3) Avoid pressure to the area to assist healing and decrease risk for recurrent or new pressure ulcerations 4) Nutritional support 5) PT/OT 6) SS consult for consideration of discharge to rehab facility Consent: Gaye has been counseled for the procedure, it's indications, risks, benefits and expected outcome as well as alternative therapies. We specifically discussed risks associated with anesthesia, bleeding, infection, injury to surrounding structures which may require additional surgery, and the possible need for conversion to an open procedure. We also discussed the possible need for a blood transfusion with its risks and benefits. Gaye understands, agrees, and consents to the proposed operative strategy and requests that we proceed with the procedure as outlined in our discussion. Dariel Moore MD, [facility] General Surgery Service
--- NOTE | 2024-05-25 10:36 | XRAY Report ---
PROCEDURE: Chest 1V INDICATIONS: SOB TECHNIQUE: One view of the chest was acquired. COMPARISON: Chest radiograph on July 17, 2023. FINDINGS: Surgical changes and devices: Partially visualized bilateral shoulder arthroplasties. Lungs and pleura: . Diffuse interstitial prominence with bibasilar and right hilar consolidations. T race left pleural effusion. No right-sided pleural effusion. No pneumothorax bilaterally. Mediastinum: Mediastinal contours appear normal. Borderline cardiomegaly. Bones and chest wall: No suspicious bony lesions. Overlying soft tissues appear unremarkable. Multi level degenerative changes of the spine with mild levoconvex curvature of the thoracic spine. IMPRESSION: 1.Diffuse interstitial prominence suggestive of edema and/or atypical infection. Bibasilar and right midlung consolidations may reflect superimposed atelectasis, aspiration and/or pneumonia. Recommend r adiographic follow-up to document resolution and rule out underlying neoplasm. 2.Trace left pleural effusion. 3.Borderline cardiomegaly, stable. Reviewed by: Tracy Carrera MD on 05/25/2024 10:34 AM PDT Approved by: Tracy Carrera MD on 05/25/2024 10:34 AM PDT Station ID: [id number]
[2024-05-25] MEDS: LORazepam 1 MG TABLET PO PRN (10:56)
[2024-05-25] MEDS: HYDROmorphone 2 MG TABLET PO PRN (10:56)
--- NOTE | 2024-05-25 11:23 | PHARMACY PROGRESS NOTE ---
- Therapy Status Vancomycin regimen day #: 2 Therapy status: Awaiting steady state Basis for treatment: Empirical Treatment indication: DECUBITUS ULCER Trough goal: AUC GOAL ~ 459 - ANA Risk Acute Kidney Injury risk factors: Piperacillin/Tozobactam, Baseline CrCl <50, IV contrast within 72 hrs, Baseline BUN:SCr >20:1 - Monitoring and Recommendation Clinical response to treatment: Lab Results 05/24/24 18:51 BUN 37 H Creatinine 0.8 Estimated GFR (MDRD) 69 L Monitoring plan: Daily serum creatinine Areas for additional monitoring: Therapy de-escalation based on culture results Pharmacy recommendation: Continue current regime
--- NOTE | 2024-05-25 11:32 | ANESTHESIA ---
Pre-Anesthesia VS, & Labs - Diagnosis sacral decub ulcer - Procedure excisional debridement sacral ulcer Vital Signs: Temp Pulse Resp BP Pulse Ox O2 Flow Rate 36.5 C 105 H 18 119/83 H 96 05/25/24 08:00 05/25/24 08:00 05/25/24 08:00 05/25/24 08:00 05/25/24 08:00 Height: 5 ft 4 in Weight (kg): 60 kg Body Mass Index: 22.6 BMI Classification: Normal - NPO Last Fluid Intake: 0700 oatmeal - Is Patient ?: No - Lab Results Current Lab Results: Laboratory Tests 05/24/24 20:58: Lactic Acid 1.4 05/24/24 18:51: Sodium 139, Potassium 4.4, Chloride 103, Carbon Dioxide 31, Anion Gap 5.0 L, BUN 37 H, Creatinine 0.8, Estimated GFR (MDRD) 69 L, Glucose 84, Calcium 9.0, Magnesium 1.7, Total Bilirubin 1.9 H, AST 30, ALT 27, Alkaline Phosphatase 124 H, Total Protein 5.3 L, Albumin 3.2, Globulin 2.1, Albumin/Globulin Ratio 1.5 05/24/24 18:51: PT 18.1 H, INR 1.7 H, APTT 31.5 05/24/24 18:51: WBC 12.1 H, RBC 3.32 L, Hgb 9.6 L, Hct 32.5 L, MCV 97.9, MCH 28.9, MCHC 29.5 L, RDW 25.4 H, Plt Count 265, MPV 9.8, Neut # (Auto) 11.1 H, Lymph # (Auto) 0.5 L, [place] # (Auto) 0.5, Eos # (Auto) 0.1, Baso # (Auto) 0.0, Absolute Nucleated RBC 0.00, Nucleated RBC % 0.0, Manual Slide Review Indicated, Platelet Estimate NORMAL (130-450,000), Platelet Morphology NORMAL APPEARANCE, RBC Morph Micro Appear 1+ MICROCYTOSIS Lab results reviewed: Yes Fish Bones: 05/24/24 18:51 05/24/24 18:51 Home Medications and Allergies Active Medications Acetaminophen (Acetaminophen 325 Mg Tablet) 650 mg PO Q4HR PRN PRN Reason: Pain 1 to 4, or Fever Last Admin: 05/25/24 01:30 Dose: 650 mg Apixaban (Apixaban 5 Mg Tablet) 5 mg PO BID [facility] Last Admin: 05/25/24 08:32 Dose: 5 mg Atorvastatin Calcium (Atorvastatin 10 Mg Tablet) 10 mg PO HS BRITT Carvedilol (Carvedilol 12.5 Mg Tablet) 25 mg PO BIDWM [facility] Last Admin: 05/25/24 08:32 Dose: 25 mg Cholecalciferol (Cholecalciferol 5,000 Unit Capsule) 5,000 unit PO DAILY [facility] Last Admin: 05/25/24 08:32 Dose: 5,000 unit Diltiazem HCl (Diltiazem Cd 120 Mg Capsule) 120 mg PO DAILY [facility] Last Admin: 05/25/24 08:32 Dose: 120 mg Hydromorphone HCl (Hydromorphone 2 Mg Tablet) 2 mg PO Q6HR PRN PRN Reason: Severe Pain (Level 7-10) Last Admin: 05/25/24 10:56 Dose: 2 mg Hydroxychloroquine Sulfate (Hydroxychloroquine 200 Mg Tablet) 400 mg PO QPM [facility] Piperacillin Sod/Tazobactam (Sod 3.375 gm/ Sodium Chloride) 100 mls @ 200 mls/hr IV Q8H [facility] Last Infusion: 05/25/24 09:05 Dose: Infused Vancomycin HCl 1 gm/Vancomycin HCl 250 mg/ Sodium Chloride 250 mls @ 166.667 mls/hr IV Q24H [facility] Lorazepam (Lorazepam 1 Mg Tablet) 2 mg PO HS PRN PRN Reason: Anxiety Last Admin: 05/25/24 10:56 Dose: 2 mg Multivitamins (Multivitamin Tablet) 1 tab PO DAILY [facility] Last Admin: 05/25/24 08:32 Dose: 1 tab Ondansetron HCl (Ondansetron Odt 4 Mg Tablet) 4 mg TL Q6HR PRN PRN Reason: Nausea / Vomiting Ondansetron HCl (Ondansetron 4 Mg/2 Ml Vial) 4 mg IVP Q6HR PRN PRN Reason: Nausea / Vomiting Saccharomyces Boulardii (Saccharomyces Boulardii 250 Mg Capsule) 250 mg PO BIDWM [facility] Last Admin: 05/25/24 08:32 Dose: 250 mg Sertraline HCl (Sertraline 50 Mg Tablet) 100 mg PO QPM [facility] Sodium Chloride (Sodium Chloride Flush 0.9% 10 Ml Syringe) 10 ml IVP PRN PRN PRN Reason: NEEDED PER PROVIDER ORDERS Sodium Chloride (Sodium Chloride Flush 0.9% 10 Ml Syringe) 10 ml IVP 0100,0900,1700 BRITT Last Admin: 05/25/24 08:35 Dose: 10 ml Hydroxychloroquine [Plaquenil] 400 mg PO QPM 04/10/17 Sertraline [Zoloft] 100 mg PO QPM 04/10/17 carvediloL [Carvedilol] 25 mg PO BIDWM 04/10/17 Acetaminophen [Tylenol] 1 tab PO BID PRN 10/20/22 Atorvastatin [Lipitor] 10 mg PO HS 10/20/22 Bifidobacterium Infantis [Align] 2 tab PO BID 10/20/22 Cholecalciferol [Vitamin D3] 5,000 unit PO DAILY 10/20/22 LORazepam [Lorazepam] 2 mg PO HS PRN 10/20/22 Multivitamin [Theragran] 1 tab PO DAILY 10/20/22 Naloxone HCl Nasal [Narcan Nasal] 1 spray HELIO PRN PRN 10/20/22 Vitamin B Complex 1 tab PO DAILY 10/20/22 Doxycycline [Vibramycin] 100 mg PO BID 07/18/23 Furosemide [Lasix] 40 mg PO DAILY 07/18/23 Hydromorphone HCl 4 mg PO BID PRN 07/18/23 Potassium Chloride 30 meq PO QDBREAKFAST 07/18/23 dilTIAZem HCL [Diltiazem 24Hr ER (Xr)] 120 mg PO DAILY 07/18/23 Allergies/Adverse Reactions: Allergies Allergy/AdvReac Type Severity Reaction Status Date / Time prochlorperazine edisylate * Allergy Severe Unknown Verified 05/24/24 18:02 [From Compazine] prochlorperazine Allergy Unknown Verified 05/24/24 18:02 [From Compazine] prochlorperazine maleate * Allergy Unknown Verified 05/24/24 18:02 [From Compazine] codeine AdvReac Severe Emesis Verified 05/24/24 18:02 hydrocodone AdvReac Nausea Verified 05/24/24 18:02 monosodium glutamate AdvReac Emesis Verified 05/24/24 18:02 oxycodone AdvReac Emesis Verified 05/24/24 18:02 Anes History & Medical History - Anesthetic History Anesthesia Complications: reports: No previous complications Family history of Anesthesia Complications: Denies Family history of Malignant Hyperthermia: Denies - Medical History Cardiovascular: reports: Congestive heart failure, Hypertension, Coronary artery disease, SD, Atrial fibrillation Pulmonary: reports: Pneumonia Gastrointestinal: reports: GI bleed, Hemorrhoids, Diverticulitis Urinary: reports: None Neuro: reports: Migraines, Peripheral neuropathy Musculoskeletal: reports: Osteoarthritis, Scoliosis, Chronic back pain, Other (left arm in sling) Endocrine/Autoimmune: reports: Systemic lupus erythematosus Blood Disorders: reports: Anemia Skin: reports: None Smoking Status: Never smoker - Surgical History General: reports: Bowel surgery, Colonoscopy, Other Eyes Ears Nose Throat (EENT): reports: Cataracts Orthopedic: reports: Hip replacement, Knee replacement, Shoulder arthroplasty Exam General: Alert, Oriented x3, Cooperative Dental: WNL, Poor dentition Mouth Openin Fingerbreadth Neck Mobility: Normal Mallampati classification: II Respiratory: Respiratory distress (moderate, c/o SOB), Decreased breath sounds, Accessory muscle use (at times) Cardiovascular: Other (AF, chronic, anticoags) Neurological: Normal speech Mental/Cognitive Status: Alert/Oriented X3, Normal for patient Cognitive Status: Within normal limits Plan Anesthesia Type: MAC, Total IV Consent for Procedure(s) Verified and Reviewed: Yes Code Status: Attempt Resuscitation ASA classification: 3-Severe systemic disease Is this case an emergency?: Yes
[2024-05-25] MEDS ORDERED: lidocaine 1% 20 ML MDV ONE (13:02)
[2024-05-25] MEDS ORDERED: MIDAZOLAM 2 MG/2 ML VIAL ONE (13:14)
[2024-05-25] MEDS ORDERED: KETAMINE 200 MG/20 ML VIAL ONE (13:16)
[2024-05-25] MEDS ORDERED: LIDOCAINE-PF 2% 10 ML AMP SUBQ ONE (13:19)
--- NOTE | 2024-05-25 13:27 | OPERATIVE REPORT ---
Operative Report - General Admit Date: 05/25/24 - Other Other Information/Narrative: PROCEDURE DATE: 05/25/2024 PREOPERATIVE DIAGNOSIS: Gaye is a 78 year old female who has necrotic, non- viable tissue in the depths of a Stage 3-4 sacral decubitus ulcer. Gaye is taken to the operating room for excisional debridement of the sacral decubitus ulcer. POSTOPERATIVE DIAGNOSIS: 7 cm (L) x 4 cm (W) x 2 cm depth ulcer (707.23) NAME OF PROCEDURE: Excisional debridement of necrotic skin, subcutaneous tissue and fascia from sacral decubitus ulcer (46029) SURGEON: Dariel Moore MD, FACS IS TECHNICIAN SURGEON: None ANESTHESIA: Local with Monitored sedation ESTIMATED BLOOD LOSS: 5 mL. DRAINS: None SPECIMEN: Cultures/Necrotic soft tissue COMPLICATIONS: None FINDINGS: Necrosis of the skin, subcutaneous tissue and pre-sacral fascia. No bone involvement. DESCRIPTION OF OPERATION: After consent for the procedure was obtained, the patient was brought to the operating room where, in the right lateral decubitus position, monitored sedation was administered. Pressure points were padded. A surgical time-out was performed, indicating the patient and the procedure to be performed. The sacral area was prepped with alcohol-free betadine and draped in a sterile fashion. The skin on the inferior aspect of the ulcer was necrotic and excised with a 15 blade scalpel. The adipose tissue and pre-sacral fascia were also necrotic and was sharply excised with a 15 blade scalpel. Necrotic tissue was sent for culture and pathologic review. Hemostasis was achieved with electrocautery. At the end of the procedure, the ulcer dimensions were 7 cm (L) x 4 cm (W) x 2 cm depth. The wound was dressed with saline dampened 4 x 4 gauze covered with 4 x 4 gauze and an ABD dressing. The patient was awakened from sedation. She tolerated the procedure well and was brought to the recovery room with stable vital signs.
--- NOTE | 2024-05-25 13:36 | PROVIDER PROGRESS NOTE ---
Subjective - Prog Note Date Prog Note Date: 05/25/24 Prog Note Time: 08:00 - Subjective Subjective: This morning Gaye is anxious and fearful. She has much insight into the situation and recognizes that she needs something for anxiety. She is worried about what might happen with her ulceration. Long discussion with her this afternoon. She has had a rough 2 years. 30 years ago received radiation therapy to her chest secondary to breast cancer. Also had chronic lymphedema for which she was treated. This went well but unfortunately the left shoulder joint had issues secondary to the radiation therapy. She had a total shoulder replacement that ended in complications of infection and fracture of the humerus around the replacement. After that she developed serious back pain was seen by [facility] who determined that although she does have multiple degenerative processes going on in her back she needs a right total hip replacement. She then started to struggle with anemia was seen by Dr. Nguyen had a bone marrow biopsy was determined that this was simply iron deficiency anemia and has been getting iron infusions. While all this was going on she had several areas of GI bleeding and ultimately determined with her shellfish farming supervisor that she would go on Eliquis 2.5 twice daily instead of the usual 5 twice daily. All this to say she has been quite debilitated. Her is an deployment engineer and keeps meticulous records of their healthcare encounters. They have been engaged with the healthcare system 196 days out of the past 2 years. She is continuing to lose weight. He is continuing to try to meet all of her care needs. Unfortunately over the last several weeks she developed what was perceived to be a small sacral decubitus ulcer which is quickly grown. It is for this reason they presented to the hospital last night. I spoke with the promotional marketing agent this afternoon. Gaye will need 1800 kcal a day and 60 g of protein. She is not meeting this need at home, nor is her able to meet her care needs. Current Medications - Current Medications Current Medications: Medications Vancomycin HCl 1 gm/Vancomycin HCl 250 mg/ Sodium Chloride 250 mls @ 166.667 mls/hr IV Q24H BRITT Acetaminophen (Acetaminophen 325 Mg Tablet) 650 mg PO Q4HR PRN PRN Reason: Pain 1 to 4, or Fever Last Admin: 05/25/24 01:30 Dose: 650 mg Apixaban (Apixaban 5 Mg Tablet) 5 mg PO BID BRITT Last Admin: 05/25/24 08:32 Dose: 5 mg Atorvastatin Calcium (Atorvastatin 10 Mg Tablet) 10 mg PO HS [facility] Carvedilol (Carvedilol 12.5 Mg Tablet) 25 mg PO BIDWM [facility] Last Admin: 05/25/24 18:39 Dose: Not Given Cholecalciferol (Cholecalciferol 5,000 Unit Capsule) 5,000 unit PO DAILY [facility] Last Admin: 05/25/24 08:32 Dose: 5,000 unit Diltiazem HCl (Diltiazem Cd 120 Mg Capsule) 120 mg PO DAILY [facility] Last Admin: 05/25/24 08:32 Dose: 120 mg Hydromorphone HCl (Hydromorphone 2 Mg Tablet) 2 mg PO Q6HR PRN PRN Reason: Severe Pain (Level 7-10) Last Admin: 05/25/24 10:56 Dose: 2 mg Hydroxychloroquine Sulfate (Hydroxychloroquine 200 Mg Tablet) 400 mg PO QPM [facility] Lorazepam (Lorazepam 1 Mg Tablet) 2 mg PO HS PRN PRN Reason: Anxiety Last Admin: 05/25/24 10:56 Dose: 2 mg Mirtazapine (Mirtazapine 15 Mg Tablet) 7.5 mg PO QPM [facility] Multivitamins (Multivitamin Tablet) 1 tab PO DAILY [facility] Last Admin: 05/25/24 08:32 Dose: 1 tab Multivitamins/Minerals (Multivitamin W/Minerals Tablet) 1 tab PO DAILYWM [facility] Ondansetron HCl (Ondansetron Odt 4 Mg Tablet) 4 mg TL Q6HR PRN PRN Reason: Nausea / Vomiting Piperacillin Sod/Tazobactam (Sod 3.375 gm/ Sodium Chloride) 100 mls @ 200 mls/hr IV Q8H [facility] Last Admin: 05/25/24 17:20 Dose: Infused Saccharomyces Boulardii (Saccharomyces Boulardii 250 Mg Capsule) 250 mg PO BIDWM [facility] Last Admin: 05/25/24 18:39 Dose: Not Given Sertraline HCl (Sertraline 50 Mg Tablet) 100 mg PO QPM [facility] Objective - Vital Signs/Intake & Output Vital Signs: Vital Signs x48h Temp Pulse Resp BP Pulse Ox 05/25/24 08:00 36.5 C 105 H 18 119/83 H 96 Intake & Output: Intake & Output 05/22/24 05/23/24 05/24/2405/25/24 23:59 23:59 23:59 23:59 Intake Total 440 570 Balance 440 570 - Objective General Appearance: positive: Mild distress (anxious) Eyes Bilateral: positive: Normal inspection ENT: positive: ENT inspection nml, No signs of dehydration, Other (temporal wasting) Neck: positive: Nml inspection Respiratory: positive: Chest non-tender, Breath sounds nml, Other (tachypneic with anxiety.) Cardiovascular: positive: Regular rate & rhythm Abdomen: positive: Non-tender Skin: positive: Color nml, Decubitus (photos in chart examined.) Extremities: positive: Non-tender Neurologic/Psychiatric: positive: Oriented x3 - Lab Results Fish Bones: 05/24/24 18:51 05/24/24 18:51 Other Labs: Lab Results x24hrs 05/24/24 05/24/24 05/24/24 Range/Units 20:58 18:51 18:51 WBC (4.8-10.8) x10^3/uL RBC (4.20-5.40) 10^6/uL Hgb (12.0-16.0) g/dL Hct (37.0-47.0) % MCV (81.0-99.0) fL MCH (27.0-31.0) pg MCHC (32.0-36.0) g/dL RDW (12.0-15.0) % Plt Count (130-450) 10^3/uL MPV (7.9-10.8) fL Neut # (Auto) (1.5-6.6) 10^3/uL Lymph # (Auto) (1.5-3.5) 10^3/uL [place] # (Auto) (0.0-1.0) 10^3/uL Eos # (Auto) (0.0-0.7) 10^3/uL Baso # (Auto) (0.0-0.1) 10^3/uL Absolute Nucleated RBC x10^3/uL Nucleated RBC % /100WBC Manual Slide Review Platelet Estimate (NORMAL) Platelet Morphology (NORMAL) RBC Morph Micro Appear (NORMAL) PT 18.1 H (9.9-12.6) secs INR 1.7 H (0.8-1.2) APTT 31.5 (24.9-33.3) secs Sodium 139 (135-145) mmol/L Potassium 4.4 (3.5-4.5) mmol/L Chloride 103 (101-111) mmol/L Carbon Dioxide 31 (21-32) mmol/L Anion Gap 5.0 L (6-13) BUN 37 H (6-20) mg/dL Creatinine 0.8 (0.6-1.3) mg/dL Estimated GFR (MDRD) 69 L (>89) Glucose 84 (74-104) mg/dL Lactic Acid 1.4 (0.5-2.2) mmol/L Calcium 9.0 (8.5-10.3) mg/dL Magnesium 1.7 (1.7-2.3) mg/dL Total Bilirubin 1.9 H (0.2-1.0) mg/dL AST 30 (10-42) IU/L ALT 27 (10-60) IU/L Alkaline Phosphatase 124 H (42-121) IU/L Total Protein 5.3 L (6.4-8.9) g/dL Albumin 3.2 (3.2-5.5) g/dL Globulin 2.1 (2.1-4.2) g/dL Albumin/Globulin Ratio 1.5 (1.0-2.2) /06/09 Range/Units 18:51 WBC 12.1 H (4.8-10.8) x10^3/uL RBC 3.32 L (4.20-5.40) 10^6/uL Hgb 9.6 L (12.0-16.0) g/dL Hct 32.5 L (37.0-47.0) % MCV 97.9 (81.0-99.0) fL MCH 28.9 (27.0-31.0) pg MCHC 29.5 L (32.0-36.0) g/dL RDW 25.4 H (12.0-15.0) % Plt Count 265 (130-450) 10^3/uL MPV 9.8 (7.9-10.8) fL Neut # (Auto) 11.1 H (1.5-6.6) 10^3/uL Lymph # (Auto) 0.5 L (1.5-3.5) 10^3/uL [place] # (Auto) 0.5 (0.0-1.0) 10^3/uL Eos # (Auto) 0.1 (0.0-0.7) 10^3/uL Baso # (Auto) 0.0 (0.0-0.1) 10^3/uL Absolute Nucleated RBC 0.00 x10^3/uL Nucleated RBC % 0.0 /100WBC Manual Slide Review Indicated Platelet Estimate NORMAL (130-450,000) (NORMAL) Platelet Morphology NORMAL APPEARANCE (NORMAL) RBC Morph Micro Appear 1+ MICROCYTOSIS (NORMAL) PT (9.9-12.6) secs INR (0.8-1.2) APTT (24.9-33.3) secs Sodium (135-145) mmol/L Potassium (3.5-4.5) mmol/L Chloride (101-111) mmol/L Carbon Dioxide (21-32) mmol/L Anion Gap (6-13) BUN (6-20) mg/dL Creatinine (0.6-1.3) mg/dL Estimated GFR (MDRD) (>89) Glucose (74-104) mg/dL Lactic Acid (0.5-2.2) mmol/L Calcium (8.5-10.3) mg/dL Magnesium (1.7-2.3) mg/dL Total Bilirubin (0.2-1.0) mg/dL AST (10-42) IU/L ALT (10-60) IU/L Alkaline Phosphatase (42-121) IU/L Total Protein (6.4-8.9) g/dL Albumin (3.2-5.5) g/dL Globulin (2.1-4.2) g/dL Albumin/Globulin Ratio (1.0-2.2) ABX Reporting Has patient been on IV antibiotics over the past 48 hours?: Yes Sepsis Event Note (H) - Evaluation Current Stage of Sepsis: Ruled out Assessment/Plan - Problem List (1) Sacral decubitus ulcer, stage III Impression: Discussed with general surgery today who was taken the patient for debridement. She will undergo wet-to-dry dressings over the next several days and further assessments of the wounds. I have discussed the wound with the . He understands the need for nutrition he also understands the need for meticulous wound care. She will likely need to go into retirement rehab for care. (2) Malnutrition Impression: She has had decreased intake at home due to her chronic illness. I discussed this patient with nutrition this afternoon. She will require 1800 kemal a day and at least 60 g of protein every day to meet the needs of wound healing. Patient has great difficulty taking this and orally. I broached the subject of artificial nutrition with the this afternoon. To go to a facility she would need a permanent means of artificial nutrition. He will consider this. (3) Atrial fibrillation Impression: Atrial fibrillation on Eliquis 2.5 mg twice daily as an outpatient. She does not appear to be on any medication for rate control. She has not had tachycardia since she has been here. Telemetry strips do show that she has been in atrial fibrillation.
[2024-05-25] MEDS: LIDOCAINE 1% 50 ML MDV SUBQ ONE ×2 (13:47)
[2024-05-25] MEDS ORDERED: ePHEDrine 50 MG/ML VIAL IVP PRN (13:50)
[2024-05-25] MEDS ORDERED: fentaNYL 100 MCG/2 ML VIAL IVP PRN (13:50)
[2024-05-25] MEDS ORDERED: ONDANSETRON 4 MG/2 ML VIAL IVP PRN (13:50)
[2024-05-25] MEDS ORDERED: ATROPINE ABBOJECT 1 MG/10 ML SYRINGE IVP PRN (13:50)
[2024-05-25] MEDS ORDERED: NALOXONE 0.4 MG/ML VIAL IVP PRN (13:50)
[2024-05-25] MEDS ORDERED: LACTATED RINGERS 1,000 ML IV SCH (14:00)
[2024-05-25] MEDS: LACTATED RINGERS 1,000 ML IV ONE (14:00)
--- NOTE | 2024-05-25 14:37 | ANESTHESIA POST OP EVALUATION ---
Anesthesia Post Eval - Post Anesthesia Eval Vitals: Last Vital Signs Temp 37.1 C 05/25/24 14:25 Pulse 77 05/25/24 14:29 Resp 19 05/25/24 14:29 BP 106/68 05/25/24 14:29 Pulse Ox 99 05/25/24 14:29 O2 Flow Rate CV Function Including HR & BP: Stable Pain Control: Satisfactory Nausea & Vomiting: Negative Mental Status: Baseline (still difficult to arouse, similar to pre-op following Ativan and dilaudid administration.) Respiratory Status: Airway Patent Hydration Status: Satisfactory Anesthesia Complications: None
[2024-05-25] MEDS: MIRTAZAPINE 15 MG TABLET PO SCH (20:36)
[2024-05-25] MEDS: HYDROXYCHLOROQUINE 200 MG TABLET PO SCH (20:36)
[2024-05-25] MEDS: SERTRALINE 50 MG TABLET PO SCH (20:37)
[2024-05-25] MEDS: ATORVASTATIN 10 MG TABLET PO SCH (20:37)
[2024-05-25] MEDS: VANCOMYCIN INJ 1 GM, VANCOMYCIN INJ 250 MG in SODIUM CHLORIDE 0.9% 250 ML IV SCH (22:33)
[2024-05-26] MEDS: SODIUM CHLORIDE FLUSH 0.9% 10 ML SYRINGE IVP PRN (01:38)
[2024-05-26 07:50] LABS: BASOPHILS % (AUTO) 0.4 %; EOSINOPHILS # (AUTO) 0.1 10^3/uL (0.0-0.7); EOSINOPHILS % (AUTO) 1.1 %; HCT - HEMATOCRIT 28.8 % (37.0-47.0); HGB - HEMOGLOBIN 8.5 g/dL (12.0-16.0); LYMPHOCYTES # (AUTO) 0.4 10^3/uL (1.5-3.5); MEAN CORPUSCULAR HEMOGLOBIN 28.9 pg (27.0-31.0); MEAN CORPUSCULAR HGB CONC 29.5 g/dL (32.0-36.0); MEAN PLATELET VOLUME 9.5 fL (7.9-10.8); MONOCYTES # (AUTO) 0.4 10^3/uL (0.0-1.0); MONOCYTES % (AUTO) 4.3 %; NEUTROPHILS # (AUTO) 7.2 10^3/uL (1.5-6.6); NEUTROPHILS % (AUTO) 87.9 %; PLT - PLATELET COUNT 207 10^3/uL (130-450); RED BLOOD COUNT 2.94 10^6/uL (4.20-5.40); RED CELL DISTRIBUTION WIDTH 24.8 % (12.0-15.0); WHITE BLOOD COUNT 8.2 x10^3/uL (4.8-10.8)
[2024-05-26 07:57] LABS: ALBUMIN 2.4 g/dL (3.2-5.5); CALCIUM 8.5 mg/dL (8.5-10.3); CREATININE 0.7 mg/dL (0.6-1.3); CRP - C-REACTIVE PROTEIN 12.5 mg/dL (<0.5); MAGNESIUM 1.7 mg/dL (1.7-2.3); PHOSPHORUS 3.5 mg/dL (2.5-5.0); POTASSIUM 3.4 mmol/L (3.5-4.5)
[2024-05-26 08:01] LABS: SLIDE REVIEW? Indicated
[2024-05-26 08:05] LABS: PROCALCITONIN 0.16 ng/mL (<0.5)
--- NOTE | 2024-05-26 08:14 | PROVIDER PROGRESS NOTE ---
Progress Note General Surgery Progress Note Admitting diagnosis - Sacral decubitus Stage 3-4 POD # 1: Excisional debridement sacral decubitus ulcer S: Comfortable. Nursing staff tells me there has been no wound issues since yesterday's debridement O: VSS, afeb. The operative site is clean with minimal bleeding. There is no fecal contamination. The base and lateral jeffers are clean and appear viable. There is no granulation tissue present at this time Blood cultures NG after 1 day Wound cultures pending A: POD # 1 excisional debridement sacral decubitus ulcer - no immediate post-op wound issues. Recommendation: Continue saline wet to dry dressing changes BID. May switch to dilute Dakin's if wound granulation does not appear soon. Discharge planning. Dariel Moore MD, FACS General Surgery Service
[2024-05-26 08:26] LABS: PLATELET ESTIMATE, MANUAL NORMAL (130-450,000) (NORMAL); PLATELET MORPHOLOGY NORMAL APPEARANCE (NORMAL)
[2024-05-26 08:27] LABS: WBC MORPHOLOGY (MULTIPLE) NORMAL APPEARANCE (NORMAL)
[2024-05-26] MEDS: MULTIVITAMIN W/MINERALS TABLET PO SCH (10:32)
--- NOTE | 2024-05-26 12:23 | PHARMACY PROGRESS NOTE ---
- Best Possible Medication History Admit Date and Time: 05/25/24 1231 Processed by: Pharmacy Medication History completed: Yes Patient Interview: Completed Secondary Source(s): Written medication list, Spouse/Significant other, Insurance records ([employer] PROVIDED COMPLETE UPDATED LIST) As the person ultimately responsible for medication therapy, providers are able to order a medication from an existing home medication list in [facility] via the "Reconcile Routine" prior to Confirmation of that medication by windows desktop support. Such practice is discouraged except when the physician, in their clinical judgment, deems that a medical need exists for a medication without regard to previous use.
--- NOTE | 2024-05-26 13:37 | PROVIDER PROGRESS NOTE ---
Subjective - Prog Note Date Prog Note Date: 05/26/24 Prog Note Time: 13:34 - Subjective Pt reports feeling: Improved Subjective: Underwent successful debridement of her sacral decubitus ulcer yesterday afternoon. She reports feeling overall okay however does have some pain in her buttocks from the ulcer, though it is manageable with current pain regimen. Denies any chest pain, shortness of breath, cough, fevers or chills. She has no vomiting however she continues to have a poor appetite and is not eating much. Objective - Vital Signs/Intake & Output Reviewed Vital Signs: Yes Vital Signs: Vital Signs x48h Temp Pulse Resp BP Pulse Ox O2 Flow Rate 05/26/24 08:00 36.6 C 62 18 137/94 H 95 2 05/26/24 07:20 3 Intake & Output: Intake & Output 05/23/24 05/24/24 05/25/24 05/26/24 23:59 23:59 23:59 23:59 Intake Total 440 920 570 Output Total 450 550 Balance 440 470 20 - Objective General Appearance: positive: No acute distress, Alert, Other (Cachectic and chronically ill-appearing) Eyes Bilateral: positive: Normal inspection, PERRL, EOMI ENT: positive: ENT inspection nml, Pharynx nml, No signs of dehydration Neck: positive: Nml inspection, Thyroid nml, No JVD, Trachea midline Respiratory: positive: No respiratory distress, Breath sounds nml. negative: Wheezes, Rales, Rhonchi Cardiovascular: positive: Regular rate & rhythm, No murmur, No gallop Abdomen: positive: Non-tender, No organomegaly, Nml bowel sounds, No distention Back: positive: Other (Large surgical dressing in place over her lower back/sacrum) Skin: positive: Color nml, No rash, Warm, Dry Extremities: positive: No pedal edema Neurologic/Psychiatric: positive: Oriented x3, CN's nml (2-12), Motor nml, Sensation nml, Mood/affect nml - Lab Results Fish Bones: 05/26/24 07:31 05/26/24 07:31 Other Labs: Lab Results x24hrs 05/26/24 05/26/24 05/26/24 Range/Units 07:31 07:31 07:31 WBC 8.2 (4.8-10.8) x10^3/uL RBC 2.94 L (4.20-5.40) 10^6/uL Hgb 8.5 L (12.0-16.0) g/dL Hct 28.8 L (37.0-47.0) % MCV 98.0 (81.0-99.0) fL MCH 28.9 (27.0-31.0) pg MCHC 29.5 L (32.0-36.0) g/dL RDW 24.8 H (12.0-15.0) % Plt Count 207 (130-450) 10^3/uL MPV 9.5 (7.9-10.8) fL Neut # (Auto) 7.2 H (1.5-6.6) 10^3/uL Lymph # (Auto) 0.4 L (1.5-3.5) 10^3/uL [place] # (Auto) 0.4 (0.0-1.0) 10^3/uL Eos # (Auto) 0.1 (0.0-0.7) 10^3/uL Baso # (Auto) 0.0 (0.0-0.1) 10^3/uL Absolute Nucleated RBC 0.00 x10^3/uL Nucleated RBC % 0.0 /100WBC Manual Slide Review Indicated WBC Morphology NORMAL APPEARANCE (NORMAL) Platelet Estimate NORMAL (130-450,000) (NORMAL) Platelet Morphology NORMAL APPEARANCE (NORMAL) RBC Morph Micro Appear 3+ ANISOCYTOSIS (NORMAL) ESR 32 H (0-30) mm/Hr Sodium 141 (135-145) mmol/L Potassium 3.4 L (3.5-4.5) mmol/L Chloride 106 (101-111) mmol/L Carbon Dioxide 29 (21-32) mmol/L Anion Gap 6.0 (6-13) BUN 27 H (6-20) mg/dL Creatinine 0.7 (0.6-1.3) mg/dL Estimated GFR (MDRD) 81 L (>89) Glucose 71 L (74-104) mg/dL Calcium 8.5 (8.5-10.3) mg/dL Phosphorus 3.5 (2.5-5.0) mg/dL Magnesium 1.7 (1.7-2.3) mg/dL C-Reactive Protein 12.5 H (<0.5) mg/dL Albumin 2.4 L (3.2-5.5) g/dL Procalcitonin Immunoas 0.16 (<0.5) ng/mL Sepsis Event Note (H) - Evaluation Current Stage of Sepsis: Ruled out Assessment/Plan - Problem List (1) Sacral decubitus ulcer, stage III Impression: She has had a sacral wound for several months however in the past month at home it had started to open up. Over the span of 3 weeks it went down to a stage I II. -Went to the OR on 05/25/2024 with general surgery. Appreciate assistance. -Underwent successful debridement of the wound with good margins. -Given the location of her wound, a wound VAC is not a good option as it is too close to the anal verge. -Continue wet-to-dry dressings for now and if appropriate granulation tissue appears in the next 2 to 3 days, can switch to a Dakin's solution. -Primary management going forward will be continued nursing dressing changes, offloading and importantly nutritional support. Without improving her caloric intake, this wound will not heal. -Continue IV vancomycin and Zosyn. Blood cultures no growth to date. Wound cultures are pending. (2) Severe protein-calorie malnutrition Impression: She has lost over 50 pounds in the past year and is currently cachectic and malnourished. -Nutrition indicates that she will need at least 1800 kemal a day and at least 60 g of protein a day to have minimum needs for wound healing. -Remeron was added to improve appetite. -Continue nutritional supplements. -She may ultimately require PEG tube for tube feeding in order to obtain appropriate nutritional support. (3) Atrial fibrillation Impression: No acute issues at this time. -Continue home carvedilol, diltiazem CD and Eliquis. (4) Hypertension Impression: Controlled. -Continue home carvedilol 25 mg twice daily. Qualifiers: Hypertension type: primary hypertension Qualified Code(s): I10 - Essential (primary) hypertension
[2024-05-26] MEDS ORDERED: SIMETHICONE 40 MG/0.6 ML 30 ML BOTTLE PO PRN (18:47)
--- NOTE | 2024-05-27 08:44 | PROVIDER PROGRESS NOTE ---
Progress Note General Surgery Progress Note Patient sound asleep. BID local wound care continues by nursing staff. I will examine the wound later when she is awake. Christopher Moore MD, FACS General Surgery Service
[2024-05-27 08:57] LABS: CALCIUM 8.3 mg/dL (8.5-10.3); CREATININE 0.6 mg/dL (0.6-1.3); MAGNESIUM 1.7 mg/dL (1.7-2.3); PHOSPHORUS 3.2 mg/dL (2.5-5.0)
[2024-05-27] MEDS: POTASSIUM CHLORIDE 20 MEQ TABLET PO SCH (12:31)
--- NOTE | 2024-05-27 14:01 | PROVIDER PROGRESS NOTE ---
Subjective - Prog Note Date Prog Note Date: 05/27/24 Prog Note Time: 13:59 - Subjective Pt reports feeling: No change Subjective: No acute events overnight however this morning she is more lethargic and drowsy, which occurred after taking a 2 mg oral Ativan dose for anxiety. No significant complaints this morning but is hard for her to stay awake during the interview. Vitals have remained stable however labs showed potassium of 3.0 today. Objective - Vital Signs/Intake & Output Reviewed Vital Signs: Yes Vital Signs: Vital Signs x48h Temp Pulse Resp BP Pulse Ox O2 Flow Rate 05/27/24 08:00 36.5 C 91 10 L 117/72 98 4 05/27/24 07:19 4 Intake & Output: Intake & Output 05/24/24 05/25/24 05/26/24 05/27/24 23:59 23:59 23:59 23:59 Intake Total 166 958 8871 570 Output Total 450 650 450 Balance 440 470 560 120 - Objective General Appearance: positive: Other (Drowsy and difficult to stay awake. No acute distress. Appears chronically ill and cachectic.) Eyes Bilateral: positive: Normal inspection, PERRL, EOMI ENT: positive: ENT inspection nml, Pharynx nml, No signs of dehydration Neck: positive: Nml inspection, Thyroid nml, No JVD, Trachea midline Respiratory: positive: No respiratory distress, Breath sounds nml. negative: Wheezes, Rales, Rhonchi Cardiovascular: positive: Regular rate & rhythm, No murmur, No gallop Abdomen: positive: Non-tender, No organomegaly, Nml bowel sounds, No distention Back: positive: Other (Large surgical dressing in place over her lower back/sacrum) Skin: positive: Color nml, No rash, Warm, Dry Extremities: positive: No pedal edema Neurologic/Psychiatric: positive: Motor nml, Sensation nml, Other (Drowsy/lethargic but awakens to stimulation) - Lab Results Fish Bones: 05/26/24 07:31 05/27/24 08:00 Other Labs: Lab Results x24hrs 05/27/24 Range/Units 08:00 Sodium 138 (135-145) mmol/L Potassium 3.0 L (3.5-4.5) mmol/L Chloride 105 (101-111) mmol/L Carbon Dioxide 30 (21-32) mmol/L Anion Gap 3.0 L (6-13) BUN 24 H (6-20) mg/dL Creatinine 0.6 (0.6-1.3) mg/dL Estimated GFR (MDRD) 96 (>89) Glucose 100 (74-104) mg/dL Calcium 8.3 L (8.5-10.3) mg/dL Phosphorus 3.2 (2.5-5.0) mg/dL Magnesium 1.7 (1.7-2.3) mg/dL Sepsis Event Note (H) - Evaluation Current Stage of Sepsis: Ruled out Assessment/Plan - Problem List (1) Sacral decubitus ulcer, stage III Impression: She has had a sacral wound for several months however in the past month at home it had started to open up. Over the span of 3 weeks it went down to a stage III. -Went to the OR on 05/25/2024 with general surgery. Appreciate assistance. -Underwent successful debridement of the wound with good margins. -Given the location of her wound, a wound VAC is not a good option as it is too close to the anal verge. -Continue wet-to-dry dressings for now and if appropriate granulation tissue a ppears in the next 1 to 2 days, can switch to a Dakin's solution. -Primary management going forward will be continued nursing dressing changes, offloading and importantly nutritional support. Without improving her caloric intake, this wound will not heal. -Continue IV vancomycin and Zosyn. Blood cultures no growth to date. Wound cultures are pending (send out to [facility], should return in 1-2 days with results). -Narrow antibiotics once culture data resulted. (2) Severe protein-calorie malnutrition Impression: She has lost over 50 pounds in the past year and is currently cachectic and malnourished. -Nutrition indicates that she will need at least 1800 kemal a day and at least 60 g of protein a day to have minimum needs for wound healing. -Remeron was added to improve appetite. Will also add Megace 800 mg daily. -Continue nutritional supplements. -She may ultimately require PEG tube for tube feeding in order to obtain appropriate nutritional support. Would favor trial of appetite stimulants prior to committing to PEG tube. (3) Atrial fibrillation Impression: No acute issues at this time. -Continue home carvedilol, diltiazem CD and Eliquis. Qualifiers: Atrial fibrillation type: paroxysmal Qualified Code(s): I48.0 - Paroxysmal atrial fibrillation (4) Hypertension Impression: Controlled. -Continue home carvedilol 25 mg twice daily. Qualifiers: Hypertension type: primary hypertension Qualified Code(s): I10 - Essential (primary) hypertension (5) Anxiety Impression: -Decrease PRN Ativan to 1 mg qHS PRN. -On Remeron for mood and appetite. (6) Hypokalemia Impression: -Will give 40 mEq KCl x 2 doses today. -Place on scheduled 20 mEq KCl daily. -Check magnesium level.
[2024-05-27] MEDS: MEGESTROL 400 MG/10 ML UDC PO SCH (15:00)
--- NOTE | 2024-05-27 18:22 | PROVIDER PROGRESS NOTE ---
Progress Note General Surgery Evening Progress Note I examined Gaye's sacral wound this evening. The cellulitis has resolved but there is further discoloration of the skin inferior to the open wound. There is fecal contamination of the gauze in the wound and the gauze is removed. The deep fascia and sidewalls of the wound are stained but viable. There is no purulence. I cleansed the wound with saline, placed a fresh saline dampened gauze into the wound, and secured it in place with 4 x 4 gauze and tape. Tomorrow I will start Dakin's solution to manage the wound base. I discussed the wound with her and explained that without improved nutritional support and off-loading, wound healing will be prolonged and it may never completely heal. She appears emaciated and frail, has a poor appetite, and has other co-morbidities that make her prognosis for full recovery poor. Her has been in contact with his health insurance marketing specialist and is awaiting a return call from several long-term care facilities that he would like her transferred to once she is discharged from this facility. I did not initiate a discussion regarding a palliative care consult but she is a candidate for that encounter. Christopher Moore MD, [facility] General Surgery Service
[2024-05-27] MEDS ORDERED: FUROSEMIDE 40 MG/4 ML VIAL ONE (18:37)
[2024-05-27] MEDS: FUROSEMIDE 40 MG/4 ML VIAL IVP STA (18:44)
--- NOTE | 2024-05-27 19:33 | PROVIDER PROGRESS NOTE ---
Cemetery Warden Note - Cemetery Warden Note Cemetery Warden Note: Consult Information Member Facility: [facility] Facility Requesting Clinician: Arvind Anand Patient Name: lisset rojas Date of : 1945 Gender: Female Reason for Consult Reason for Consult: Drug Order/Clarification Clinical Note Clinical Note: per rn - "Patient is experiencing increase in shortness of breath and "air hunger" O2 Sats are 96% on 4L; She has been off her normal dose of Lasix for two days; we gave her a onetime dose of IV 40mg Lasix about 60minutes ago, but patient continues to feel like she can't catch her breath. I ordered a chest Xray per our protocol but was hoping to get a dose of Morphine for immediate relief of symptoms" unable to reach rn via phone codeine allergy but pt tolerating dilaudid will order dilaudid 0.2 mg iv x 1 duoneb x 1
[2024-05-27] MEDS: IPRATROPIUM/ALBUTEROL 3 ML NEB INH STA (19:54)
[2024-05-27] MEDS: HYDROmorphone 0.5 MG/0.5 ML SYRINGE IVP STA (19:56)
--- NOTE | 2024-05-27 20:00 | XRAY Report ---
PROCEDURE: Chest 1V INDICATIONS: Increase work of breathing/SOB TECHNIQUE: One view of the chest was acquired. COMPARISON: None. FINDINGS: Surgical changes and devices: Shoulder arthroplasty is present. Lungs and pleura: Worsening interstitial opacities, worsening perihilar opacities, peribronchial cuf fing. Worsening pleural effusions, moderate on the left and [id number] on the right. Mediastinum: Mediastinal contours appear normal. Heart size is normal. Bones and chest wall: No suspicious bony lesions. Overlying soft tissues appear unremarkable. IMPRESSION: Severe pulmonary edema, worsened from prior. Differential includes acute lung injury or severe infect ion. Growing pleural effusions, left greater than right. Reviewed by: Quentin Castro MD on 05/27/2024 7:59 PM PDT Approved by: Quentin Castro MD on 05/27/2024 7:59 PM PDT Station ID: [id number]
[2024-05-27] MEDS: MIN OIL/DIMETHICON/COCONUT OIL 92 GM TUBE TOP PRN (22:59)
[2024-05-28 05:35] LABS: BASOPHILS % (AUTO) 0.2 %; EOSINOPHILS % (AUTO) 0.4 %; HCT - HEMATOCRIT 29.1 % (37.0-47.0); HGB - HEMOGLOBIN 8.6 g/dL (12.0-16.0); LYMPHOCYTES # (AUTO) 0.4 10^3/uL (1.5-3.5); LYMPHOCYTES % (AUTO) 3.4 %; MEAN CORPUSCULAR HEMOGLOBIN 28.4 pg (27.0-31.0); MEAN CORPUSCULAR HGB CONC 29.6 g/dL (32.0-36.0); MEAN PLATELET VOLUME 9.7 fL (7.9-10.8); MONOCYTES # (AUTO) 0.4 10^3/uL (0.0-1.0); MONOCYTES % (AUTO) 3.6 %; NEUTROPHILS # (AUTO) 10.5 10^3/uL (1.5-6.6); PLT - PLATELET COUNT 241 10^3/uL (130-450); RED BLOOD COUNT 3.03 10^6/uL (4.20-5.40); RED CELL DISTRIBUTION WIDTH 23.4 % (12.0-15.0); WHITE BLOOD COUNT 11.4 x10^3/uL (4.8-10.8)
[2024-05-28 05:50] LABS: SLIDE REVIEW? Indicated
[2024-05-28 06:04] LABS: CALCIUM 8.4 mg/dL (8.5-10.3); CREATININE 0.4 mg/dL (0.6-1.3); POTASSIUM 3.1 mmol/L (3.5-4.5)
[2024-05-28 07:02] LABS: RBC MORPHOLOGY (MULTIPLE) 4+ ANISOCYTOSIS (NORMAL)
[2024-05-28] MEDS: POTASSIUM CHLORIDE 20 MEQ TABLET PO SCH (08:53)
[2024-05-28] MEDS: FUROSEMIDE 40 MG/4 ML VIAL IVP SCH (08:54)
[2024-05-28] MEDS ORDERED: FUROSEMIDE 40 MG TABLET PO SCH (09:00)
--- NOTE | 2024-05-28 12:03 | PROVIDER PROGRESS NOTE ---
Subjective - Prog Note Date Prog Note Date: 05/28/24 Prog Note Time: 11:44 - Subjective Pt reports feeling: No change Subjective: Yesterday afternoon she was feeling short of breath and was given 20 mg IV lasix. In the night she still felt short of breath and her chest x-ray showed pulmonary edema. She was given an extra 40 mg IV lasix and symptomatically improved. This morning she feels better though still dyspneic with exertion. Denies any chest pain, fevers, chills, sputum production. Objective - Vital Signs/Intake & Output Reviewed Vital Signs: Yes Vital Signs: Vital Signs x48h Temp Pulse Resp BP Pulse Ox O2 Flow Rate 05/28/24 08:47 111 H 139/91 H 05/28/24 08:00 36.5 C 90 24 135/93 H 100 2 Intake & Output: Intake & Output 05/25/24 05/26/24 05/27/24 05/28/24 23:59 23:59 23:59 23:59 Intake Total 920 1210 1280 930 Output Total 200 086 3118 650 Balance 470 560 -770 280 - Objective General Appearance: positive: No acute distress, Alert, Other (Appears chronically ill, cachectic and older than stated age) Eyes Bilateral: positive: Normal inspection, PERRL, EOMI ENT: positive: ENT inspection nml, Pharynx nml, No signs of dehydration Neck: positive: Nml inspection, Thyroid nml, No JVD, Trachea midline Respiratory: positive: No respiratory distress, Rales (Inspiratory crackles in both posterior lung mackey). negative: Wheezes, Rhonchi Cardiovascular: positive: Regular rate & rhythm, No murmur, No gallop Abdomen: positive: Non-tender, No organomegaly, Nml bowel sounds, No distention Back: positive: Other (Surgical dressing in place) Skin: positive: Color nml, No rash, Warm, Dry Extremities: positive: Pedal edema (Trace pedal edema bilaterally) Neurologic/Psychiatric: positive: Oriented x3, CN's nml (2-12), Motor nml, Sensation nml - Lab Results Fish Bones: 05/28/24 05:15 05/28/24 05:15 Other Labs: Lab Results x24hrs 05/28/24 05/28/24 Range/Units 05:15 05:15 WBC 11.4 H (4.8-10.8) x10^3/uL RBC 3.03 L (4.20-5.40) 10^6/uL Hgb 8.6 L (12.0-16.0) g/dL Hct 29.1 L (37.0-47.0) % MCV 96.0 (81.0-99.0) fL MCH 28.4 (27.0-31.0) pg MCHC 29.6 L (32.0-36.0) g/dL RDW 23.4 H (12.0-15.0) % Plt Count 241 (130-450) 10^3/uL MPV 9.7 (7.9-10.8) fL Neut # (Auto) 10.5 H (1.5-6.6) 10^3/uL Lymph # (Auto) 0.4 L (1.5-3.5) 10^3/uL Mcintosh # (Auto) 0.4 (0.0-1.0) 10^3/uL Eos # (Auto) 0.0 (0.0-0.7) 10^3/uL Baso # (Auto) 0.0 (0.0-0.1) 10^3/uL Absolute Nucleated RBC 0.00 x10^3/uL Nucleated RBC % 0.0 /100WBC Manual Slide Review Indicated RBC Morph Micro Appear 4+ ANISOCYTOSIS (NORMAL) Sodium 139 (135-145) mmol/L Potassium 3.1 L (3.5-4.5) mmol/L Chloride 103 (101-111) mmol/L Carbon Dioxide 31 (21-32) mmol/L Anion Gap 5.0 L (6-13) BUN 17 (6-20) mg/dL Creatinine 0.4 L (0.6-1.3) mg/dL Estimated GFR (MDRD) 154 (>89) Glucose 127 H (74-104) mg/dL Calcium 8.4 L (8.5-10.3) mg/dL - Diagnostic Imaging Diagnostic Imaging Results: positive: Final report reviewed Diagnostic Imaging Comments: Chest X-ray (05/27/24): Severe pulmonary edema, worsened from prior. Differential includes of acute lung injury or severe infection. Growing pleural effusions, left greater than right. Sepsis Event Note (H) - Evaluation Current Stage of Sepsis: Ruled out Assessment/Plan - Problem List (1) Sacral decubitus ulcer, stage III Impression: She has had a sacral wound for several months however in the past month at home it had started to open up. Over the span of 3 weeks it went down to a stage III. -Went to the OR on 05/25/2024 with general surgery. Appreciate assistance. Underwent successful debridement of the wound with good margins. -Given the location of her wound, a wound VAC is not a good option as it is too close to the anal verge. -Continue wet-to-dry dressings for now and may switch to a Dakin's solution toda y per Surgery. -Primary management going forward will be continued nursing dressing changes, offloading and importantly nutritional support. Without improving her caloric intake, this wound will not heal. Will need SNF placement for rehab and wound care. -Continue IV vancomycin and Zosyn. Blood cultures no growth to date. Wound cultures are pending (send out to [facility], should return in 1-2 days with results). -Narrow antibiotics once culture data resulted. (2) Acute respiratory failure with hypoxia Impression: Developed over the past couple days. Her acute worsening is due to acute pulmonary edema. -Place on 40 mg IV lasix BID. -Fluid restriction to 2000 ml. -Obtain TTE. (3) Acute congestive heart failure Impression: Developed pulmonary edema since admission. Normally is on lasix at home. -Place on 40 mg IV lasix BID as noted above. -Check TTE to evaluate function. Qualifiers: Heart failure type: unspecified Qualified Code(s): I50.9 - Heart failure, unspecified (4) Severe protein-calorie malnutrition Impression: She has lost over 50 pounds in the past year and is currently cachectic and malnourished. -Nutrition indicates that she will need at least 1800 kemal a day and at least 60 g of protein a day to have minimum needs for wound healing. -Remeron was added to improve appetite on admission. Will also add Megace 800 mg daily. -Continue nutritional supplements. -She may ultimately require PEG tube for tube feeding in order to obtain appropriate nutritional support. Would favor trial of appetite stimulants prior to committing to PEG tube, which can be assessed as an outpatient. (5) Atrial fibrillation Impression: No acute issues at this time. -Continue home carvedilol and Eliquis. -Holding Cardizem CD until we have an LVEF. Is she has severe systolic dysfunction (<25-30%), would continue to hold. Qualifiers: Atrial fibrillation type: paroxysmal Qualified Code(s): I48.0 - Paroxysmal atrial fibrillation (6) Hypertension Impression: Controlled. -Continue home carvedilol 25 mg twice daily. Qualifiers: Hypertension type: primary hypertension Qualified Code(s): I10 - Essential (primary) hypertension (7) Anxiety Impression: -PRN Ativan 1 mg qHS PRN. -On Remeron for mood and appetite. (8) Hypokalemia Impression: -Continue scheduled 20 mEq KCl daily. -Check magnesium level.
[2024-05-28] MEDS: SIMETHICONE CHEW 80 MG TABLET PO PRN (13:00)
[2024-05-28 23:05] LABS: VANCOMYCIN,TROUGH 15.1 ug/mL
[2024-05-29 04:56] LABS: BASOPHILS % (AUTO) 0.2 %; EOSINOPHILS # (AUTO) 0.2 10^3/uL (0.0-0.7); EOSINOPHILS % (AUTO) 1.8 %; HGB - HEMOGLOBIN 8.2 g/dL (12.0-16.0); LYMPHOCYTES # (AUTO) 0.4 10^3/uL (1.5-3.5); LYMPHOCYTES % (AUTO) 3.5 %; MEAN CORPUSCULAR HEMOGLOBIN 27.8 pg (27.0-31.0); MEAN CORPUSCULAR HGB CONC 29.3 g/dL (32.0-36.0); MEAN CORPUSCULAR VOLUME 94.9 fL (81.0-99.0); MEAN PLATELET VOLUME 9.7 fL (7.9-10.8); MONOCYTES # (AUTO) 0.4 10^3/uL (0.0-1.0); MONOCYTES % (AUTO) 3.9 %; NEUTROPHILS # (AUTO) 9.2 10^3/uL (1.5-6.6); NEUTROPHILS % (AUTO) 90.2 %; PLT - PLATELET COUNT 222 10^3/uL (130-450); RED BLOOD COUNT 2.95 10^6/uL (4.20-5.40); RED CELL DISTRIBUTION WIDTH 23.5 % (12.0-15.0); WHITE BLOOD COUNT 10.2 x10^3/uL (4.8-10.8)
[2024-05-29 05:19] LABS: CREATININE 0.4 mg/dL (0.6-1.3); POTASSIUM 2.4 mmol/L (3.5-4.5)
[2024-05-29 05:38] LABS: SLIDE REVIEW? Indicated
[2024-05-29 06:23] LABS: PLATELET ESTIMATE, MANUAL NORMAL (130-450,000) (NORMAL)
[2024-05-29] MEDS: POTASSIUM CHLORIDE 20 MEQ TABLET PO ONE (07:35)
--- NOTE | 2024-05-29 09:27 | XRAY Report ---
PROCEDURE: Chest 2V INDICATIONS: worsening SOB TECHNIQUE: 2 views of the chest were acquired. COMPARISON: 05/27/2024. FINDINGS: Surgical changes and devices: Bilateral shoulder arthroplasties. Lungs and pleura: Definite interval progression of severe alveolar pulmonary edema. Bilateral pleura l effusions, right greater than left. Mediastinum: Mediastinal contours appear normal. Heart size is normal. Bones and chest wall: No suspicious bony lesions. Overlying soft tissues appear unremarkable. IMPRESSION: Continued progression of congestive heart failure, severe. Reviewed by: Jefferson Lennon MD on 05/29/2024 9:26 AM PDT Approved by: Jefferson Lennon MD on 05/29/2024 9:26 AM PDT Station ID: [id number]
--- NOTE | 2024-05-29 13:05 | PROVIDER PROGRESS NOTE ---
Subjective - Prog Note Date Prog Note Date: 05/29/24 Prog Note Time: 13:10 - Subjective Pt reports feeling: No change Subjective: When I initially saw the patient this morning she had just been cleaned up. She was extremely short of breath and could only say about 2 words at a time without gasping for air. She tells me that she can hardly move without getting significantly short of breath. She has had no fever or shaking chills. She says her chest feels tight. No chest pain or heart palpitations. She has had no nausea or vomiting however her appetite remains poor. She has not had a bowel movement today. No urinary c omplaints. She is frequently urinating and has a pure wick in place due to IV diuresis Current Medications - Current Medications Current Medications: Active Medications Generic Name Dose Route Start Last Admin Trade Name Freq PRN Reason Stop Dose Admin Acetaminophen 650 mg 05/24/24 21:32 05/29/24 11:08 Acetaminophen 325 Mg Tablet PO 650 mg Q4HR PRN Administration Pain 1 to 4, or Fever Apixaban 5 mg 05/25/24 09:00 05/29/24 08:40 Apixaban 5 Mg Tablet PO 5 mg BID BRITT Administration Ascorbic Acid 500 mg 05/29/24 17:00 Ascorbic Acid 500 Mg Tablet PO DAILY BRITT Atorvastatin Calcium 10 mg 05/25/24 21:00 05/28/24 21:42 Atorvastatin 10 Mg Tablet PO 10 mg HS BRITT Administration Carvedilol 25 mg 05/25/24 08:00 05/29/24 08:40 Carvedilol 12.5 Mg Tablet PO 25 mg BIDWM BRITT Administration Cholecalciferol 5,000 unit 05/25/24 09:00 05/29/24 08:41 Cholecalciferol 5,000 Unit Capsule PO 5,000 unit DAILY BRITT Administration Furosemide 40 mg 05/29/24 14:00 Furosemide 40 Mg/4 Ml Vial IVP TID BRITT Hydromorphone HCl 2 mg 05/25/24 07:58 05/29/24 08:39 Hydromorphone 2 Mg Tablet PO 2 mg Q6HR PRN Administration Severe Pain (Level 7-10) Hydroxychloroquine Sulfate 400 mg 05/25/24 21:00 05/28/24 21:43 Hydroxychloroquine 200 Mg Tablet PO 400 mg QPM BRITT Administration Piperacillin Sod/Tazobactam 100 mls @ 200 mls/hr 05/25/24 01:00 05/29/24 09:15 Sod 3.375 gm/ Sodium Chloride IV Infused Q8H BRITT Infusion Vancomycin HCl 1 gm/ 250 mls @ 166.667 mls/hr 05/25/24 23:00 05/28/24 23:35 Vancomycin HCl 250 mg/ Sodium IV Infused Chloride Q24H BRITT Infusion Lorazepam 1 mg 05/27/24 13:56 Lorazepam 1 Mg Tablet PO HS PRN Anxiety Megestrol Acetate 800 mg 05/27/24 13:58 05/29/24 08:41 Megestrol 400 Mg/10 Ml Udc PO 800 mg DAILY BRITT Administration Mineral Oil 1 applic 05/27/24 22:18 05/27/24 22:59 Min Oil/Dimethicon/Coconut Oil 92 Gm Tube TOP 1 applic PRN PRN Administration Skin Care Mirtazapine 7.5 mg 05/25/24 21:00 05/28/24 21:42 Mirtazapine 15 Mg Tablet PO 7.5 mg QPM BRITT Administration Multivitamins/Minerals 1 tab 05/26/24 08:00 05/29/24 08:41 Multivitamin W/Minerals Tablet PO 1 tab DAILYWM BRITT Administration Ondansetron HCl 4 mg 05/24/24 21:32 Ondansetron Odt 4 Mg Tablet TL Q6HR PRN Nausea / Vomiting Ondansetron HCl 4 mg 05/24/24 21:32 Ondansetron 4 Mg/2 Ml Vial IVP Q6HR PRN Nausea / Vomiting Potassium Chloride 20 meq 05/28/24 08:00 05/29/24 08:40 Potassium Chloride 20 Meq Tablet PO 20 meq DAILYWM BRITT Administration Saccharomyces Boulardii 250 mg 05/25/24 08:00 05/29/24 08:40 Saccharomyces Boulardii 250 Mg Capsule PO 250 mg BIDWM BRITT Administration Sertraline HCl 100 mg 05/25/24 21:00 05/28/24 21:43 Sertraline 50 Mg Tablet PO 100 mg QPM BRITT Administration Simethicone 80 mg 05/28/24 07:50 05/29/24 10:41 Simethicone Chew 80 Mg Tablet PO 80 mg Q6HR PRN Administration Gas Sodium Chloride 10 ml 05/24/24 21:32 05/27/24 18:44 Sodium Chloride Flush 0.9% 10 Ml Syringe IVP 10 ml PRN PRN Administration NEEDED PER PROVIDER ORDERS Sodium Chloride 10 ml 05/25/24 01:00 05/29/24 08:42 Sodium Chloride Flush 0.9% 10 Ml Syringe IVP 10 ml 0100,0900,1700 BRITT Administration Zinc Sulfate 220 mg 05/29/24 17:00 Zinc Sulfate 220 Mg Capsule PO DAILY BRITT Hydroxychloroquine [Plaquenil] 300 mg PO QPM 04/10/17 Sertraline [Zoloft] 100 mg PO QPM 04/10/17 carvediloL [Carvedilol] 25 mg PO BIDWM 04/10/17 Acetaminophen [Tylenol] 500 tab PO DAILY 10/20/22 Atorvastatin [Lipitor] 10 mg PO HS 10/20/22 Cholecalciferol [Vitamin D3] 5,000 unit PO DAILY 10/20/22 Multivitamin [Theragran] 1 tab PO DAILY 10/20/22 Furosemide [Lasix] 40 mg PO DAILY 07/18/23 Hydromorphone HCl 4 mg PO BID PRN 07/18/23 Potassium Chloride 30 meq PO QDBREAKFAST 07/18/23 dilTIAZem HCL [Diltiazem 24Hr ER (Xr)] 120 mg PO DAILY 07/18/23 Apixaban [Eliquis] 1 tab PO BID 05/26/24 Bifidobacterium Infantis [Align] 1 tab PO DAILY 05/26/24 Esomeprazole Magnesium [Nexium 24Hr] 1 cap PO DAILY 05/26/24 Ondansetron HCl 4 mg PO BID PRN 05/26/24 Vit B Comp/Folic/Choline/Inosi [B-100 Complex Capsule] 1 tab PO DAILY 05/26/24 polyethylene glycoL 3350(BULK) [Miralax (Bulk)] 17 gr PO DAILY PRN 05/26/24 Objective - Vital Signs/Intake & Output Reviewed Vital Signs: Yes Vital Signs: Vital Signs x48h Temp Pulse Resp BP Pulse Ox O2 Flow Rate 05/29/24 07:25 36.6 C 100 20 137/91 H 95 2 Intake & Output: Intake & Output 05/26/24 05/27/24 05/28/24 05/29/24 23:59 23:59 23:59 23:59 Intake Total 1210 1280 1480 930 Output Total 711 0249 1769 1551 Balance 325 -238 -1940 -620 - Objective General Appearance: positive: Mild distress, Other (The patient has severe conversational dyspnea. She is quite cachectic) Eyes Bilateral: positive: Normal inspection ENT: positive: ENT inspection nml, Other (Bitemporal muscle wasting bilaterally) Neck: positive: Nml inspection Respiratory: positive: Other (She has course breath sounds and crackles bilaterally) Cardiovascular: positive: No murmur, No gallop, Irregularly irregular (She is rate controlled). negative: Friction rub Abdomen: positive: Non-tender, Nml bowel sounds Skin: positive: Color nml, No rash, Warm, Dry Extremities: positive: Other (Muscle wasting and fat loss throughout all 4 extremities) Neurologic/Psychiatric: positive: Oriented x3, CN's nml (2-12) - Lab Results Fish Bones: 05/29/24 04:45 05/29/24 04:45 Other Labs: Lab Results x24hrs 05/29/24 05/29/24 05/29/24 Range/Units 04:45 04:45 04:45 WBC 10.2 (4.8-10.8) x10^3/uL RBC 2.95 L (4.20-5.40) 10^6/uL Hgb 8.2 L (12.0-16.0) g/dL Hct 28.0 L (37.0-47.0) % MCV 94.9 (81.0-99.0) fL MCH 27.8 (27.0-31.0) pg MCHC 29.3 L (32.0-36.0) g/dL RDW 23.5 H (12.0-15.0) % Plt Count 222 (130-450) 10^3/uL MPV 9.7 (7.9-10.8) fL Neut # (Auto) 9.2 H (1.5-6.6) 10^3/uL Lymph # (Auto) 0.4 L (1.5-3.5) 10^3/uL Boone # (Auto) 0.4 (0.0-1.0) 10^3/uL Eos # (Auto) 0.2 (0.0-0.7) 10^3/uL Baso # (Auto) 0.0 (0.0-0.1) 10^3/uL Absolute Nucleated RBC 0.00 x10^3/uL Nucleated RBC % 0.0 /100WBC Manual Slide Review Indicated Platelet Estimate NORMAL (130-450,000) (NORMAL) RBC Morph Micro Appear 1+ OVALOCYTES (NORMAL) Sodium 139 (135-145) mmol/L Potassium 2.4 L* (3.5-4.5) mmol/L Chloride 99 L (101-111) mmol/L Carbon Dioxide 36 H (21-32) mmol/L Anion Gap 4.0 L (6-13) BUN 14 (6-20) mg/dL Creatinine 0.4 L (0.6-1.3) mg/dL Estimated GFR (MDRD) 154 (>89) Glucose 134 H (74-104) mg/dL Calcium 8.0 L (8.5-10.3) mg/dL B-Natriuretic Peptide 2872 H (5-100) pg/mL Last Dose Date Last Dose Time Vancomycin Trough ug/mL 05/28/24 Range/Units 22:19 WBC (4.8-10.8) x10^3/uL RBC (4.20-5.40) 10^6/uL Hgb (12.0-16.0) g/dL Hct (37.0-47.0) % MCV (81.0-99.0) fL MCH (27.0-31.0) pg MCHC (32.0-36.0) g/dL RDW (12.0-15.0) % Plt Count (130-450) 10^3/uL MPV (7.9-10.8) fL Neut # (Auto) (1.5-6.6) 10^3/uL Lymph # (Auto) (1.5-3.5) 10^3/uL Boone # (Auto) (0.0-1.0) 10^3/uL Eos # (Auto) (0.0-0.7) 10^3/uL Baso # (Auto) (0.0-0.1) 10^3/uL Absolute Nucleated RBC x10^3/uL Nucleated RBC % /100WBC Manual Slide Review Platelet Estimate (NORMAL) RBC Morph Micro Appear (NORMAL) Sodium (135-145) mmol/L Potassium (3.5-4.5) mmol/L Chloride (101-111) mmol/L Carbon Dioxide (21-32) mmol/L Anion Gap (6-13) BUN (6-20) mg/dL Creatinine (0.6-1.3) mg/dL Estimated GFR (MDRD) (>89) Glucose (74-104) mg/dL Calcium (8.5-10.3) mg/dL B-Natriuretic Peptide (5-100) pg/mL Last Dose Date 05/28/24 Last Dose Time 2200 Vancomycin Trough 15.1 ug/mL ABX Reporting Has patient been on IV antibiotics over the past 48 hours?: Yes Sepsis Event Note (H) - Evaluation Current Stage of Sepsis: Ruled out Assessment/Plan - Problem List (1) Acute respiratory failure with hypoxia Impression: Secondary to severe pulmonary edema. Continue oxygen support and therapy as outlined below. Would titrate to keep her oxygen level greater than 92%. (2) Sacral decubitus ulcer, stage III Impression: She is status postdebridement on May 25 by general surgery. Continue local wound care. She will need to go to a skilled facility at discharge for rehab and aggressive wound care. There was evidence of infection at the time of admission. Deep cultures are pending. Continue current antibiotic therapy with IV vancomycin and Zosyn (3) Acute diastolic (congestive) heart failure Impression: The patient had a echocardiogram on May 25, 2024 which revealed a preserved ejection fraction. She has significant pulmonary edema. Her lasix will be increased to 40 mg IV q8h today. Strict I's and O's. Chest x-ray today revealed worsening pulmonary edema and spite of aggressive diuresis. Will repeat a chest x-ray in the morning as well as a BNP (4) SLE (systemic lupus erythematosus) Impression: Continue Plaquenil (5) Severe protein-calorie malnutrition Impression: Please see advanced care planning note for details of my discussion with the patient and her . She is profoundly malnourished. Continue to work with the clinical dietitian. It is going to be very difficult for her to heal this wound. We discussed her CODE STATUS today as well as possible PEG tube placement. They are going to discuss their goals today and I will follow-up with further conversations tomorrow. Continue to work with the clinical diet itian and continue supplements for now. (6) Permanent atrial fibrillation Impression: Continue carvedilol and Eliquis. Her Cardizem has been held. Systolic blood pressures are only in the high 90s. The patient is in atrial fibrillation with a controlled rate. (7) Hypertension Impression: Blood pressures are on the low side. Continue Coreg for now. Her Cardizem has been held (8) Chronic prescription opiate use Impression: She will continue her home dose of 2 mg p.o. hydromorphone twice daily (9) Anxiety Impression: Continue Ativan 1 mg p.o. nightly as needed (10) Elevated liver function tests Impression: Of undetermined significance at this point. Possibly due to passive congestion of the liver from decompensated heart failure. She will have a liver panel drawn in the morning. (11) Anemia Impression: Multifactorial secondary to chronic disease and iron deficiency. Her hemoglobin is stable (12) Hypokalemia Impression: This was repleted. She will have a chemistry panel in the morning (13) Sarcopenia Impression: With subsequent ambulatory dysfunction. Diffuse muscle wasting and fat loss throughout her body. Profoundly weak. Bedbound at this point. Her is hoping that she can make some progress working with physical therapy and Occupational Therapy when she goes to rehab. Continue to work with the therapist as tolerated during this hospitalization. Goals of care continue to be discussed with the family. Disposition: Inpatient hospitalization remains necessary. The patient does have a bed for rehab however she is hypoxic with severe pulmonary edema that needs to be treated. She is requiring IV diuresis. Timing of disposition will be determined by her clinical course Time spent: 35 minutes
--- NOTE | 2024-05-29 13:26 | ADVANCE CARE PLANNING NOTE ---
Advance Care Planning - Planning Encounter Date: 05/29/24 Time: 11:30 Purpose: To discuss gaols of care Parties in Attendance: The patient and her Luis Vallecillo Decisional Capacity of the Patient: She is able t make decisions at this point - Encounter Subjective/Patient's Story: The patient is a 78-year-old female with a complex past medical history. She has SLE and a history of breast cancer. She has had GI issues with recurrent GI bleeds in the past. She has severe degenerative joint disease and has had multiple joint replacements and complications resulting from surgery. She presented to the emergency room with an infected stage III decubitus ulcer. Over the past several months the patient has become increasingly bedbound and she has recently had a sacral decubitus ulcer that has rapidly progressed. She went to the operating room on May 25 for surgical debridement of her ulcer. Currently awaiting placement for subacute rehabilitation and wound care. Her hospitalization has been complicated by the development of severe pulmonary edema. Currently being diuresed with IV Lasix. She is profoundly malnourished and not eating enough to sustain herself at this point. Goals of Care: Today I had a discussion with the patient and her regarding her whole overall status. The patient's states that she desperately needs a hip replacement but she has been unable to have it performed due to the persistent anemia as well as her nutritional status. He is quite hopeful that she will go to rehab for a month or 2 and that her wound will heal and he will get her back up on her feet and she can get the surgery that he feels she so desperately needs. We discussed the realities of her situation. We discussed the fact that without additional supplementation of her nutrition it would be highly unlikely that the patient could heal this decubitus ulcer on her own. She is bedbound at this point and unable to ambulate. She is profoundly malnourished and her appetite remains poor. The patient's was surprised to find out that it could even be difficult at all to heal this ulcer. I spent a significant amount of time discussing her nutritional status and the role that it plays in keeping her skin healthy. We also discussed her CODE STATUS. At this point she is a full code. He says that they have advanced directives indicating that she would like to be a full code but she would not want any prolonged life support. We discussed this as well. Due to her bedbound status, greater than 70 pound weight loss over the past year and poor functional status it would be quite difficult for her to get a meaningful recovery should she need chest compressions and intubation. They were quite overwhelmed as no one has ever discussed this with them. The patient said that she wants to think about this and talk to her today and we will have follow-up conversations tomorrow. If they are agreeable it might be beneficial to get palliative care to see them as well. In regards to her nutritional status we discussed possible PEG tube. They are going to d iscuss this as well but seem to be leaning away from having a PEG tube placed as of the time of this visit. We did discuss that it is the normal natural course of things for patient to have less appetite and did not eat well as they are approaching the end of their lives. The decision is whether to be more aggressive or to follow a more palliative care approach going forward. They both definitely want rehab and wound care going forward and they are going to discuss all of this today and tonight. I will follow-up tomorrow with further conversations. Plan: Will follow-up tomorrow for further goals of care discussions Code Status: Attempt Resuscitation Time spent on advance care plannin minutes
[2024-05-29] MEDS: FUROSEMIDE 40 MG/4 ML VIAL IVP SCH (13:45)
--- NOTE | 2024-05-29 14:26 | PROVIDER PROGRESS NOTE ---
Progress Note General Surgery Progress Note Sacral wound examined. Appears to have less non-viable debris with the initiation of BID Anasep solution. Wound cultures with multiple organisms: Klebsiella and Serratia - both sensitive to Zosyn; Proteus resistant to all. Currently on Zosyn. Patient less SOB on diuretics. Plans for discharge to SNF on-going. Continue local wound care. IV antibiotics ro 5-7 days. Christopher Moore MD, FACS General Surgery Service
[2024-05-29] MEDS: ASCORBIC ACID 500 MG TABLET PO SCH (18:15)
[2024-05-29] MEDS: ZINC SULFATE 220 MG CAPSULE PO SCH (18:15)
[2024-05-29] MEDS: LORazepam 1 MG TABLET PO PRN (22:13)
[2024-05-30 05:14] LABS: BASOPHILS % (AUTO) 0.2 %; EOSINOPHILS # (AUTO) 0.2 10^3/uL (0.0-0.7); EOSINOPHILS % (AUTO) 2.3 %; HCT - HEMATOCRIT 27.2 % (37.0-47.0); HGB - HEMOGLOBIN 8.3 g/dL (12.0-16.0); LYMPHOCYTES # (AUTO) 0.6 10^3/uL (1.5-3.5); LYMPHOCYTES % (AUTO) 6.4 %; MEAN CORPUSCULAR HEMOGLOBIN 29.2 pg (27.0-31.0); MEAN CORPUSCULAR HGB CONC 30.5 g/dL (32.0-36.0); MEAN CORPUSCULAR VOLUME 95.8 fL (81.0-99.0); MEAN PLATELET VOLUME 9.7 fL (7.9-10.8); MONOCYTES # (AUTO) 0.4 10^3/uL (0.0-1.0); MONOCYTES % (AUTO) 4.5 %; NEUTROPHILS % (AUTO) 86.3 %; PLT - PLATELET COUNT 237 10^3/uL (130-450); RED BLOOD COUNT 2.84 10^6/uL (4.20-5.40); RED CELL DISTRIBUTION WIDTH 23.5 % (12.0-15.0); WHITE BLOOD COUNT 9.3 x10^3/uL (4.8-10.8)
[2024-05-30 05:21] LABS: SLIDE REVIEW? Indicated
[2024-05-30 05:33] LABS: BILIRUBIN,DIRECT 0.48 mg/dL (0.03-0.18); MAGNESIUM 1.5 mg/dL (1.7-2.3)
[2024-05-30 05:39] LABS: PHOSPHORUS 2.1 mg/dL (2.5-5.0)
[2024-05-30 05:43] LABS: ALBUMIN 2.5 g/dL (3.2-5.5); BILIRUBIN,TOTAL 1.1 mg/dL (0.2-1.0); CALCIUM 8.2 mg/dL (8.5-10.3); CREATININE 0.4 mg/dL (0.6-1.3); POTASSIUM 2.6 mmol/L (3.5-4.5); TOTAL PROTEIN 4.7 g/dL (6.4-8.9)
[2024-05-30 06:07] LABS: PLATELET ESTIMATE, MANUAL NORMAL (130-450,000) (NORMAL)
[2024-05-30] MEDS ORDERED: MAGNESIUM SULFATE 4 GM in SODIUM CHLORIDE 0.9% 50 ML IV ONE (07:56)
[2024-05-30] MEDS: POTASSIUM CHLORIDE 20 MEQ TABLET PO ONE (08:35)
--- NOTE | 2024-05-30 08:49 | XRAY Report ---
PROCEDURE: Chest 1V INDICATIONS: f/u pulmonary edema TECHNIQUE: One view of the chest was acquired. COMPARISON: 05/29/2024. FINDINGS: Surgical changes and devices: Bilateral total shoulder arthroplasties, right humeral ORIF with quest ion of bony absence of the distal shaft of the left humerus. Lungs and pleura: No pleural effusions or pneumothorax. Extensive bilateral alveolar consolidation m ay be minimally improved. Small left bilateral pleural effusions. Mediastinum: Mediastinal contours appear normal. Heart size is normal. Bones and chest wall: No suspicious bony lesions. Overlying soft tissues appear unremarkable. IMPRESSION: Alveolar pulmonary edema may be slightly improved. Incidental note made of possible absence distal bony shaft of the left humerus, status post remote OR IF Reviewed by: Jefferson Lennon MD on 05/30/2024 8:47 AM PDT Approved by: Jefferson Lennon MD on 05/30/2024 8:47 AM PDT Station ID: [id number]
[2024-05-30] MEDS ORDERED: MAGNESIUM SULFATE 4 GRAM 4 GM/50 ML BAG IV ONE (09:00)
[2024-05-30] MEDS: MAGNESIUM SULFATE 2 GRAM 2 GM/50 ML BAG IV SCH (09:11)
--- NOTE | 2024-05-30 09:21 | PROVIDER PROGRESS NOTE ---
Subjective - Prog Note Date Prog Note Date: 05/30/24 Prog Note Time: 20:00 - Subjective Pt reports feeling: Improved Subjective: The patient states she slightly improved. Her conversational dyspnea is better and she feels as if she is slightly improved. She has had no fever or chills overnight. She says her chest still feels tight but she is not having any pain. No heart palpitations. She has had no nausea or vomiting. Her appetite remains poor. She has not had a bowel movement today. Her wound was examined by general surgery yesterday and is doing well. She has no urinary complaints Current Medications - Current Medications Current Medications: Active Medications Generic Name Dose Route Start Last Admin Trade Name Freq PRN Reason Stop Dose Admin Acetaminophen 650 mg 05/24/24 21:32 05/30/24 00:45 Acetaminophen 325 Mg Tablet PO 650 mg Q4HR PRN Administration Pain 1 to 4, or Fever Apixaban 5 mg 05/25/24 09:00 05/30/24 09:01 Apixaban 5 Mg Tablet PO 5 mg BID BRITT Administration Ascorbic Acid 500 mg 05/29/24 17:00 05/30/24 09:00 Ascorbic Acid 500 Mg Tablet PO 500 mg DAILY BRITT Administration Atorvastatin Calcium 10 mg 05/25/24 21:00 05/29/24 22:14 Atorvastatin 10 Mg Tablet PO 10 mg HS BRITT Administration Carvedilol 25 mg 05/25/24 08:00 05/29/24 17:53 Carvedilol 12.5 Mg Tablet PO 25 mg BIDWM BRITT Administration Cholecalciferol 5,000 unit 05/25/24 09:00 05/30/24 09:01 Cholecalciferol 5,000 Unit Capsule PO 5,000 unit DAILY BRITT Administration Furosemide 40 mg 05/29/24 14:00 05/30/24 06:01 Furosemide 40 Mg/4 Ml Vial IVP 40 mg TID BRITT Administration Hydromorphone HCl 2 mg 05/25/24 07:58 05/30/24 04:46 Hydromorphone 2 Mg Tablet PO 2 mg Q6HR PRN Administration Severe Pain (Level 7-10) Hydroxychloroquine Sulfate 400 mg 05/25/24 21:00 05/29/24 22:14 Hydroxychloroquine 200 Mg Tablet PO 400 mg QPM BRITT Administration Piperacillin Sod/Tazobactam 100 mls @ 200 mls/hr 05/25/24 01:00 05/30/24 08:59 Sod 3.375 gm/ Sodium Chloride IV 200 mls/hr Q8H BRITT Administration Vancomycin HCl 1 gm/ 250 mls @ 166.667 mls/hr 05/25/24 23:00 05/29/24 23:53 Vancomycin HCl 250 mg/ Sodium IV Infused Chloride Q24H BRITT Infusion Magnesium Sulfate 2 gm in 50 mls @ 50 mls/hr 05/30/24 09:00 05/30/24 09:11 Magnesium Sulfate IV 05/30/24 10:59 50 mls/hr Q1H BRITT Administration Lorazepam 1 mg 05/27/24 13:56 05/29/24 22:13 Lorazepam 1 Mg Tablet PO 1 mg HS PRN Administration Anxiety Megestrol Acetate 800 mg 05/27/24 13:58 05/30/24 09:00 Megestrol 400 Mg/10 Ml Udc PO 800 mg DAILY BRITT Administration Mineral Oil 1 applic 05/27/24 22:18 05/27/24 22:59 Min Oil/Dimethicon/Coconut Oil 92 Gm Tube TOP 1 applic PRN PRN Administration Skin Care Mirtazapine 7.5 mg 05/25/24 21:00 05/29/24 22:13 Mirtazapine 15 Mg Tablet PO 7.5 mg QPM BRITT Administration Multivitamins/Minerals 1 tab 05/26/24 08:00 05/30/24 09:00 Multivitamin W/Minerals Tablet PO 1 tab DAILYWM BRITT Administration Ondansetron HCl 4 mg 05/24/24 21:32 Ondansetron Odt 4 Mg Tablet TL Q6HR PRN Nausea / Vomiting Ondansetron HCl 4 mg 05/24/24 21:32 Ondansetron 4 Mg/2 Ml Vial IVP Q6HR PRN Nausea / Vomiting Potassium Chloride 20 meq 05/28/24 08:00 05/30/24 09:00 Potassium Chloride 20 Meq Tablet PO 20 meq DAILYWM BRITT Administration Saccharomyces Boulardii 250 mg 05/25/24 08:00 05/30/24 09:01 Saccharomyces Boulardii 250 Mg Capsule PO 250 mg BIDWM BRITT Administration Sertraline HCl 100 mg 05/25/24 21:00 05/29/24 22:13 Sertraline 50 Mg Tablet PO 100 mg QPM BRITT Administration Simethicone 80 mg 05/28/24 07:50 05/29/24 19:40 Simethicone Chew 80 Mg Tablet PO 80 mg Q6HR PRN Administration Gas Sodium Chloride 10 ml 05/24/24 21:32 05/27/24 18:44 Sodium Chloride Flush 0.9% 10 Ml Syringe IVP 10 ml PRN PRN Administration NEEDED PER PROVIDER ORDERS Sodium Chloride 10 ml 05/25/24 01:00 05/30/24 06:01 Sodium Chloride Flush 0.9% 10 Ml Syringe IVP 10 ml 0100,0900,1700 BRITT Administration Zinc Sulfate 220 mg 05/29/24 17:00 05/30/24 09:00 Zinc Sulfate 220 Mg Capsule PO 220 mg DAILY BRITT Administration Hydroxychloroquine [Plaquenil] 300 mg PO QPM 04/10/17 Sertraline [Zoloft] 100 mg PO QPM 04/10/17 carvediloL [Carvedilol] 25 mg PO BIDWM 04/10/17 Acetaminophen [Tylenol] 500 tab PO DAILY 10/20/22 Atorvastatin [Lipitor] 10 mg PO HS 10/20/22 Cholecalciferol [Vitamin D3] 5,000 unit PO DAILY 10/20/22 Multivitamin [Theragran] 1 tab PO DAILY 10/20/22 Furosemide [Lasix] 40 mg PO DAILY 07/18/23 Hydromorphone HCl 4 mg PO BID PRN 07/18/23 Potassium Chloride 30 meq PO QDBREAKFAST 07/18/23 dilTIAZem HCL [Diltiazem 24Hr ER (Xr)] 120 mg PO DAILY 07/18/23 Apixaban [Eliquis] 1 tab PO BID 05/26/24 Bifidobacterium Infantis [Align] 1 tab PO DAILY 05/26/24 Esomeprazole Magnesium [Nexium 24Hr] 1 cap PO DAILY 05/26/24 Ondansetron HCl 4 mg PO BID PRN 05/26/24 Vit B Comp/Folic/Choline/Inosi [B-100 Complex Capsule] 1 tab PO DAILY 05/26/24 polyethylene glycoL 3350(BULK) [Miralax (Bulk)] 17 gr PO DAILY PRN 05/26/24 Objective - Vital Signs/Intake & Output Reviewed Vital Signs: Yes Vital Signs: Vital Signs x48h Temp Pulse Resp BP Pulse Ox O2 Flow Rate 05/30/24 08:00 36.4 C L 72 18 108/73 96 4 05/30/24 07:46 4 Intake & Output: Intake & Output 05/27/24 05/28/24 05/29/24 05/30/24 23:59 23:59 23:59 23:59 Intake Total 1280 1480 1895 200 Output Total 2050 3750 2650 1650 Balance -414 -7865 -024 -6761 - Objective General Appearance: positive: No acute distress, Other (She has severe bitemporal muscle wasting bilaterally. She is receiving oxygen via nasal cannula) Eyes Bilateral: positive: Normal inspection ENT: positive: ENT inspection nml Neck: positive: Nml inspection Respiratory: positive: Chest non-tender, Other (She has crackles noted throughout all lung mackey however improved somewhat since yesterday) Cardiovascular: positive: Regular rate & rhythm, No murmur, No gallop. negative: Friction rub Abdomen: positive: Non-tender, No organomegaly Skin: positive: Color nml, No rash, Warm Extremities: positive: Non-tender, Full ROM Neurologic/Psychiatric: positive: Oriented x3, CN's nml (2-12) - Lab Results Fish Bones: 05/30/24 04:45 05/30/24 04:45 Other Labs: Lab Results x24hrs 05/30/24 05/30/24 Range/Units 04:45 04:45 WBC 9.3 (4.8-10.8) x10^3/uL RBC 2.84 L (4.20-5.40) 10^6/uL Hgb 8.3 L (12.0-16.0) g/dL Hct 27.2 L (37.0-47.0) % MCV 95.8 (81.0-99.0) fL MCH 29.2 (27.0-31.0) pg MCHC 30.5 L (32.0-36.0) g/dL RDW 23.5 H (12.0-15.0) % Plt Count 237 (130-450) 10^3/uL MPV 9.7 (7.9-10.8) fL Neut # (Auto) 8.0 H (1.5-6.6) 10^3/uL Lymph # (Auto) 0.6 L (1.5-3.5) 10^3/uL Kay # (Auto) 0.4 (0.0-1.0) 10^3/uL Eos # (Auto) 0.2 (0.0-0.7) 10^3/uL Baso # (Auto) 0.0 (0.0-0.1) 10^3/uL Absolute Nucleated RBC 0.00 x10^3/uL Nucleated RBC % 0.0 /100WBC Manual Slide Review Indicated Platelet Estimate NORMAL (130-450,000) (NORMAL) RBC Morph Micro Appear 1+ OVALOCYTES (NORMAL) Sodium 141 (135-145) mmol/L Potassium 2.6 L (3.5-4.5) mmol/L Chloride 96 L (101-111) mmol/L Carbon Dioxide 41 H* (21-32) mmol/L Anion Gap 4.0 L (6-13) BUN 17 (6-20) mg/dL Creatinine 0.4 L (0.6-1.3) mg/dL Estimated GFR (MDRD) 154 (>89) Glucose 99 (74-104) mg/dL Calcium 8.2 L (8.5-10.3) mg/dL Phosphorus 2.1 L (2.5-5.0) mg/dL Magnesium 1.5 L (1.7-2.3) mg/dL Total Bilirubin 1.1 H (0.2-1.0) mg/dL Direct Bilirubin 0.48 H (0.03-0.18) mg/dL AST 21 (10-42) IU/L ALT 21 (10-60) IU/L Alkaline Phosphatase 95 (42-121) IU/L Total Protein 4.7 L (6.4-8.9) g/dL Albumin 2.5 L (3.2-5.5) g/dL Globulin 2.2 (2.1-4.2) g/dL ABX Reporting Has patient been on IV antibiotics over the past 48 hours?: Yes Sepsis Event Note (H) - Evaluation Current Stage of Sepsis: Ruled out Assessment/Plan - Problem List (1) Acute respiratory failure with hypoxia Impression: Secondary to decompensated heart failure. Currently on 4 L of oxygen with oxygen saturations at about 96%. Will advise nursing staff to start trying to wean her oxygen down and titrate to keep her oxygen saturations above 93% (2) Sacral decubitus ulcer, stage III Impression: Continue wound care as recommended by Dr. Moore (3) Acute diastolic (congestive) heart failure Impression: Continue 40 mg of IV Lasix 3 times daily. Chest x-ray this morning revealed slight improvement in pulmonary edema. Her creatinine and BUN are stable so we will continue aggressive diuresis (4) SLE (systemic lupus erythematosus) Impression: Continue Plaquenil. No evidence of active flare (5) Severe protein-calorie malnutrition Impression: Continue to encourage good p.o. intake and supplements. The clinical dietitian is following and I appreciate her input (6) Permanent atrial fibrillation Impression: Currently rate controlled (7) Hypertension Impression: Stable (8) Chronic prescription opiate use Impression: She will continue home dose of hydromorphone 2 mg twice daily as needed. (9) Anxiety Impression: Continue lorazepam 1 mg p.o. nightly as needed for anxiety (10) Elevated liver function tests Impression: Of undetermined significance at this point. Possibly due to passive congestion of the liver due to decompensated heart failure. Continue to monitor (11) Anemia Impression: Stable (12) Hypokalemia Impression: This will be repleted again today. She will have a chemistry panel in the morning (13) Hypomagnesemia Impression: The patients magnesium will be repleted today with IV magnesium sulfate (14) Sarcopenia Impression: She will be going to subacute rehabilitation at discharge. She has ambulatory dysfunction and is extremely weak and basically bedbound. Continue physical therapy and Occupational Therapy as tolerated Disposition: Ongoing inpatient hospitalization remains necessary. The patient is being aggressively diuresed. She has acute respiratory failure requiring oxygen. She is finally beginning to improve and I am hopeful that she will be able to go to subacute rehabilitation by the end of the week Time spent: 35 minutes
--- NOTE | 2024-05-30 15:36 | PROVIDER PROGRESS NOTE ---
Progress Note General Surgery Progress Note The sacral wound is improving with the use of the Anasep. There is no purulence and the base appears somewhat more viable. There is fecal contamination near the inferior aspect of the wound but not in the wound. Continue local wound care and nutritional support. Christopher Moore MD General Surgery Service
[2024-05-31 04:56] LABS: BASOPHILS % (AUTO) 0.4 %; EOSINOPHILS # (AUTO) 0.2 10^3/uL (0.0-0.7); EOSINOPHILS % (AUTO) 2.7 %; HCT - HEMATOCRIT 27.1 % (37.0-47.0); LYMPHOCYTES # (AUTO) 0.7 10^3/uL (1.5-3.5); LYMPHOCYTES % (AUTO) 8.1 %; MEAN CORPUSCULAR HEMOGLOBIN 28.4 pg (27.0-31.0); MEAN CORPUSCULAR HGB CONC 29.5 g/dL (32.0-36.0); MEAN CORPUSCULAR VOLUME 96.1 fL (81.0-99.0); MONOCYTES # (AUTO) 0.4 10^3/uL (0.0-1.0); NEUTROPHILS # (AUTO) 7.6 10^3/uL (1.5-6.6); NEUTROPHILS % (AUTO) 84.4 %; PLT - PLATELET COUNT 279 10^3/uL (130-450); RED BLOOD COUNT 2.82 10^6/uL (4.20-5.40); RED CELL DISTRIBUTION WIDTH 23.8 % (12.0-15.0)
[2024-05-31 05:00] LABS: SLIDE REVIEW? Indicated
[2024-05-31 05:14] LABS: ALBUMIN 2.4 g/dL (3.2-5.5); PHOSPHORUS 2.4 mg/dL (2.5-5.0)
[2024-05-31 05:22] LABS: CALCIUM 7.8 mg/dL (8.5-10.3); CREATININE 0.5 mg/dL (0.6-1.3)
[2024-05-31 06:36] LABS: PLATELET ESTIMATE, MANUAL NORMAL (130-450,000) (NORMAL)
--- NOTE | 2024-05-31 10:48 | PROVIDER PROGRESS NOTE ---
Subjective - Prog Note Date Prog Note Date: 05/31/24 Prog Note Time: 10:46 - Subjective Pt reports feeling: Improved Subjective: Mrs. Vallecillo is a 78 y/o female that presented with a history of atrial fibrillation who presented to the ED on 05/24 for evaluation of worsening sacral pressure wound. She has been less mobile due to right hip which requires replacement but has been unable to get the replacement due to anemia. She sta rted to develop some skin breakdown in her sacral area a few weeks prior to presentation and was seen in Urgent Care. It quickly progressed from stage I to stage III in the past few weeks. She had a surrounding area of cellulitis and drainage from the wound. In the ED, her vitals were stable and she was afebrile and normotensive. CT was obtained and was negative for abscess or osteomylitis. She was started on antibiotics. ED provider consulted with general surgery and patient was admitted for surgical wound debridement and IV antibiotics. The wound was debrided on 05/25 and the wound is being followed and managed by surgery. On 05/27 she developed shortness of breath in the evening and was given 20 mg IV lasix. Chest x-ray showed pulmonary edema, ECHO found EF of 50-55%, normal LV and RV size, mild/moderate TR, mild MR, and pulmonary edema. BNP was 2,872. She was started on lasix 40 mg TID IV on 05/29 and has diuresed quite a bit. Today, she reports her breathing is improved but remains dyspneic with conversation. Her O2 has been decreased to 2 lpm. She has mildly increased work of breathing with suprasternal retractions. Today, she is full-fowlers in bed and had just finished her pureed breakfast when I visited. She reports feeling improved since yesterday. She really like the pureed meal and stated she "didn't have to fight her food". She has had no fever or chills overnight but remains mildy dyspneic. She has no chest pain, nausea or vomiting, or urinary complaints. Her wound was last examined by general surgery on 05/30 and is doing well. Current Medications - Current Medications Current Medications: Active Medications Generic Name Dose Route Start Last Admin Trade Name Freq PRN Reason Stop Dose Admin Acetaminophen 650 mg 05/24/24 21:32 05/30/24 21:56 Acetaminophen 325 Mg Tablet PO 650 mg Q4HR PRN Administration Pain 1 to 4, or Fever Apixaban 5 mg 05/25/24 09:00 05/31/24 09:00 Apixaban 5 Mg Tablet PO 5 mg BID BRITT Administration Ascorbic Acid 500 mg 05/29/24 17:00 05/31/24 09:01 Ascorbic Acid 500 Mg Tablet PO 500 mg DAILY BRITT Administration Atorvastatin Calcium 10 mg 05/25/24 21:00 05/30/24 21:56 Atorvastatin 10 Mg Tablet PO 10 mg HS BRITT Administration Carvedilol 25 mg 05/25/24 08:00 05/31/24 09:00 Carvedilol 12.5 Mg Tablet PO 25 mg BIDWM BRITT Administration Cholecalciferol 5,000 unit 05/25/24 09:00 05/31/24 09:00 Cholecalciferol 5,000 Unit Capsule PO 5,000 unit DAILY BRITT Administration Furosemide 40 mg 05/29/24 14:00 05/31/24 14:26 Furosemide 40 Mg/4 Ml Vial IVP 40 mg TID BRITT Administration Hydromorphone HCl 2 mg 05/25/24 07:58 05/31/24 13:21 Hydromorphone 2 Mg Tablet PO 2 mg Q6HR PRN Administration Severe Pain (Level 7-10) Hydroxychloroquine Sulfate 400 mg 05/25/24 21:00 05/30/24 21:55 Hydroxychloroquine 200 Mg Tablet PO 400 mg QPM BRITT Administration Piperacillin Sod/Tazobactam 100 mls @ 200 mls/hr 05/25/24 01:00 05/31/24 12:33 Sod 3.375 gm/ Sodium Chloride IV Infused Q8H BRITT Infusion Lorazepam 1 mg 05/27/24 13:56 05/29/24 22:13 Lorazepam 1 Mg Tablet PO 1 mg HS PRN Administration Anxiety Megestrol Acetate 800 mg 05/27/24 13:58 05/31/24 08:59 Megestrol 400 Mg/10 Ml Udc PO 800 mg DAILY BRITT Administration Mineral Oil 1 applic 05/27/24 22:18 05/31/24 05:13 Min Oil/Dimethicon/Coconut Oil 92 Gm Tube TOP 1 applic PRN PRN Administration Skin Care Mirtazapine 7.5 mg 05/25/24 21:00 05/30/24 21:55 Mirtazapine 15 Mg Tablet PO 7.5 mg QPM BRITT Administration Multivitamins/Minerals 1 tab 05/26/24 08:00 05/31/24 09:01 Multivitamin W/Minerals Tablet PO 1 tab DAILYWM BRITT Administration Ondansetron HCl 4 mg 05/24/24 21:32 Ondansetron Odt 4 Mg Tablet TL Q6HR PRN Nausea / Vomiting Ondansetron HCl 4 mg 05/24/24 21:32 Ondansetron 4 Mg/2 Ml Vial IVP Q6HR PRN Nausea / Vomiting Potassium Chloride 20 meq 05/28/24 08:00 05/31/24 09:01 Potassium Chloride 20 Meq Tablet PO 20 meq DAILYWM BRITT Administration Saccharomyces Boulardii 250 mg 05/25/24 08:00 05/31/24 09:01 Saccharomyces Boulardii 250 Mg Capsule PO 250 mg BIDWM BRITT Administration Sertraline HCl 100 mg 05/25/24 21:00 05/30/24 21:55 Sertraline 50 Mg Tablet PO 100 mg QPM BRITT Administration Simethicone 80 mg 05/28/24 07:50 05/30/24 10:29 Simethicone Chew 80 Mg Tablet PO 80 mg Q6HR PRN Administration Gas Sodium Chloride 10 ml 05/24/24 21:32 05/27/24 18:44 Sodium Chloride Flush 0.9% 10 Ml Syringe IVP 10 ml PRN PRN Administration NEEDED PER PROVIDER ORDERS Sodium Chloride 10 ml 05/25/24 01:00 05/31/24 09:01 Sodium Chloride Flush 0.9% 10 Ml Syringe IVP 10 ml 0100,0900,1700 BRITT Administration Zinc Sulfate 220 mg 05/29/24 17:00 05/31/24 09:01 Zinc Sulfate 220 Mg Capsule PO 220 mg DAILY BRITT Administration Hydroxychloroquine [Plaquenil] 300 mg PO QPM 04/10/17 Sertraline [Zoloft] 100 mg PO QPM 04/10/17 carvediloL [Carvedilol] 25 mg PO BIDWM 04/10/17 Acetaminophen [Tylenol] 500 tab PO DAILY 10/20/22 Atorvastatin [Lipitor] 10 mg PO HS 10/20/22 Cholecalciferol [Vitamin D3] 5,000 unit PO DAILY 10/20/22 Multivitamin [Theragran] 1 tab PO DAILY 10/20/22 Furosemide [Lasix] 40 mg PO DAILY 07/18/23 Hydromorphone HCl 4 mg PO BID PRN 07/18/23 Potassium Chloride 30 meq PO QDBREAKFAST 07/18/23 dilTIAZem HCL [Diltiazem 24Hr ER (Xr)] 120 mg PO DAILY 07/18/23 Apixaban [Eliquis] 1 tab PO BID 05/26/24 Bifidobacterium Infantis [Align] 1 tab PO DAILY 05/26/24 Esomeprazole Magnesium [Nexium 24Hr] 1 cap PO DAILY 05/26/24 Ondansetron HCl 4 mg PO BID PRN 05/26/24 Vit B Comp/Folic/Choline/Inosi [B-100 Complex Capsule] 1 tab PO DAILY 05/26/24 polyethylene glycoL 3350(BULK) [Miralax (Bulk)] 17 gr PO DAILY PRN 05/26/24 Objective - Vital Signs/Intake & Output Reviewed Vital Signs: Yes Vital Signs: Vital Signs x48h Temp Pulse Resp BP Pulse Ox O2 Flow Rate 05/31/24 08:00 36.4 C L 86 18 137/85 H 98 2 05/31/24 07:32 3 Intake & Output: Intake & Output 05/28/24 05/29/24 05/30/24 05/31/24 23:59 23:59 23:59 23:59 Intake Total 1480 1895 1130 320 Output Total 3750 2650 4750 150 Balance -5163 -728 -2188 170 - Objective General Appearance: positive: Alert, Mild distress, Other (69 y/o female, in mild respiratory distress, alert and conversant) Eyes Bilateral: positive: Normal inspection Neck: positive: Nml inspection, Trachea midline. negative: No JVD (JVD with inspiration) Respiratory: positive: Chest non-tender, Rales (Bilateral bases, L>R). negative: No respiratory distress (Mild dyspnea, speaking 5-7 word sentences, suprasternal retractions), Wheezes, Rhonchi Cardiovascular: positive: Irregularly irregular. negative: No murmur, No gallop Peripheral Pulses: 2+ Dorsalis pedis (R), 2+ Dorsalis pedis (L) Abdomen: positive: Non-tender, No organomegaly, Nml bowel sounds. 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) Neurologic/Psychiatric: positive: Oriented x3, CN's nml (2-12), Motor nml, Sensation nml, Mood/affect nml - Lab Results Fish Bones: 05/31/24 04:44 05/31/24 04:44 Other Labs: Lab Results x24hrs 05/31/24 05/31/24 Range/Units 04:44 04:44 WBC 9.0 (4.8-10.8) x10^3/uL RBC 2.82 L (4.20-5.40) 10^6/uL Hgb 8.0 L (12.0-16.0) g/dL Hct 27.1 L (37.0-47.0) % MCV 96.1 (81.0-99.0) fL MCH 28.4 (27.0-31.0) pg MCHC 29.5 L (32.0-36.0) g/dL RDW 23.8 H (12.0-15.0) % Plt Count 279 (130-450) 10^3/uL MPV 10.0 (7.9-10.8) fL Neut # (Auto) 7.6 H (1.5-6.6) 10^3/uL Lymph # (Auto) 0.7 L (1.5-3.5) 10^3/uL [place] # (Auto) 0.4 (0.0-1.0) 10^3/uL Eos # (Auto) 0.2 (0.0-0.7) 10^3/uL Baso # (Auto) 0.0 (0.0-0.1) 10^3/uL Absolute Nucleated RBC 0.00 x10^3/uL Nucleated RBC % 0.0 /100WBC Manual Slide Review Indicated Platelet Estimate NORMAL (130-450,000) (NORMAL) RBC Morph Micro Appear 1+ OVALOCYTES (NORMAL) Sodium 141 (135-145) mmol/L Potassium 3.0 L (3.5-4.5) mmol/L Chloride 96 L (101-111) mmol/L Carbon Dioxide 42 H* (21-32) mmol/L Anion Gap 3.0 L (6-13) BUN 20 (6-20) mg/dL Creatinine 0.5 L (0.6-1.3) mg/dL Estimated GFR (MDRD) 119 (>89) Glucose 95 (74-104) mg/dL Calcium 7.8 L (8.5-10.3) mg/dL Phosphorus 2.4 L (2.5-5.0) mg/dL Magnesium 2.0 (1.7-2.3) mg/dL Albumin 2.4 L (3.2-5.5) g/dL ABX Reporting Has patient been on IV antibiotics over the past 48 hours?: Yes Sepsis Event Note (H) - Evaluation Current Stage of Sepsis: Ruled out Assessment/Plan - Problem List (1) Acute hypoxemic respiratory failure Impression: Secondary to decompensated heart failure is resolving. Currently on 2 L of oxygen with oxygen saturations at about 96%. I will continue to have nursing staff to start trying to wean her oxygen down and titrate to keep her oxygen saturations above 93%. (2) Sacral decubitus ulcer, stage III Impression: Continue wound care as recommended by Dr. Moore (3) Acute diastolic (congestive) heart failure Impression: Continue 40 mg of IV Lasix 3 times daily. Chest x-ray yesterday revealed slight improvement in pulmonary edema. Her creatinine and BUN are stable so we will continue aggressive diuresis. (4) SLE (systemic lupus erythematosus) Impression: Continue Plaquenil. No evidence of active flare. (5) Severe protein-calorie malnutrition Impression: She reports ongoing difficulty with eating, reporting gradually increasing difficulty swallowing over the past 6 months. Yesterday, she was struggling to swallow food and was switched to a pureed diet. She really liked this and states she "didn't have to fight" her food. I think continueing the pureed diet with solid food as desired may help decrease anxiety and tension related to eating. She endorses her intake as a source of conflict at home and there had been some discussion around whether a PEG tube should be considered. She is not sure what her thoughts on a PEG tube ar while her thinks it is a good idea. As she is not a good surgical candidate right now, the pureed diet will allow for increased nutrition and either negate or delay the need to consider a PEG tube. (6) Permanent atrial fibrillation Impression: Currently rate controlled (7) Hypertension Impression: Stable (8) Chronic prescription opiate use Impression: She will continue home dose of hydromorphone 2 mg twice daily as needed during her admission. (9) Anxiety Impression: Continue lorazepam 1 mg p.o. nightly as needed for anxiety. (10) Elevated liver function tests Impression: Of undetermined significance at this point. Possibly due to passive congestion of the liver due to decompensated heart failure. T bili was 1.1 and D bili was 0.48 on 05/30. AST/ALT and alk phos were normal. I will continue to monitor. (11) Anemia Impression: Chronic, currently stable, and above transfusion threshold with no active source of bleeding. She has undergone an anemia work-up previously and it was determined to be MARAL. She has also received iron infusions. Qualifiers: Anemia type: other cause Other causes of anemia: other cause, not classified Qualified Code(s): D64.89 - Other specified anemias (12) Hypokalemia Impression: Potassium was 3.0 this morning, up from 2.6 yesterday. She is recieving K-dur 20 mEq PO daily and an additional 40 mEq PO yesterday. I will continue to monitor with CMP daily. (13) Hypomagnesemia Impression: Resolved. She recieved 4 gm IV MgSO4 yesterday and her magnesium was 2.0 today, up from 1.5 yesterday. (14) Sarcopenia Impression: She will be going to subacute rehabilitation at discharge. She has ambulatory dysfunction and is extremely weak and basically bedbound. Continue physical therapy and Occupational Therapy as tolerated.
--- NOTE | 2024-05-31 13:21 | CONSULTATION NOTE ---
Palliative Care Consultation - Referral Referring Provider: Lela Miller PA-C Time of Visit: 12:00-13:00 Referral Reason: Goals of Care - Information Sources Records reviewed: RN notes reviewed, Previous records reviewed History/Review of Systems obtained from: Patient, Family ( Bill) - History of Present Illness Brief History of Present Illness: This is a pretty 78-year-old woman who has had a significant and complex medical history. She has had acute decline over the last several months, including bedbound status, declining functional status, significant weight loss with multifactorial underlying etiology, including difficulty swallowing, abdominal discomfort with eating, and early satiety. She is feeling very encouraged at this point, as has started a pured diet, and finding this more acceptable. Patient reports they had been waiting for a Ortho consult, related to patient's worsening right hip. Had been hopeful because it had resulted in the pain in the context of resulting in bedbound status. Unfortunately the orthosurgeon given her failure to thrive, did not feel would be a candidate, this was quite a blow and disappointment to them both. With patient's poor nutritional status, bedbound status, patient did develop a decub, that changed quickly given her underlying frailty. Patient has had the wound debrided, there is concern regarding patient's ability to heal, as well as regain lost ground with her functional status. The short- term goal will be to transition to rehab, both for wound care and strengthening. Despite patient's long and extensive history, patient has not had a SNF stay previously, nor had home health other than maybe physical therapy in the past. Patient has been fairly dependent, her has been her caregiver now for 2 years, given her decline in functional status over the last few weeks, it has become more difficult this patient's been unable to weight-bear. They have been receiving care mostly through telehealth, patient has close to a dozen healthcare providers, with multiple specialties. This is given regarding her long list of medical conditions.This is included several GI bleeds, now anemia related to nutritional deficits and absorption, has been receiving iron transfusions at clinic. Palliative care meeting with patient and has been to in the setting of rapport, introduction of palliative care services and support, as well as further exploration of goals of care, and transition planning. 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 Support System: Patient and have been for 57 years, she reports "they only have each other". They have been on [facility] for 25 years, and have a pretty home with a pretty view, which they very much enjoy. They do have community support, but do not have any family close by. Has been has been the primary caregiver for the last 2 years, with increased care needs over the last several weeks to months. 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 Medications/Allergies - Medications Active Medication List: Active Medications Acetaminophen (Acetaminophen 325 Mg Tablet) 650 mg PO Q4HR PRN PRN Reason: Pain 1 to 4, or Fever Last Admin: 05/30/24 21:56 Dose: 650 mg Apixaban (Apixaban 5 Mg Tablet) 5 mg PO BID [facility] Last Admin: 05/31/24 09:00 Dose: 5 mg Ascorbic Acid (Ascorbic Acid 500 Mg Tablet) 500 mg PO DAILY [facility] Last Admin: 05/31/24 09:01 Dose: 500 mg Atorvastatin Calcium (Atorvastatin 10 Mg Tablet) 10 mg PO HS [facility] Last Admin: 05/30/24 21:56 Dose: 10 mg Carvedilol (Carvedilol 12.5 Mg Tablet) 25 mg PO BIDWM [facility] Last Admin: 05/31/24 09:00 Dose: 25 mg Cholecalciferol (Cholecalciferol 5,000 Unit Capsule) 5,000 unit PO DAILY [facility] Last Admin: 05/31/24 09:00 Dose: 5,000 unit Furosemide (Furosemide 40 Mg/4 Ml Vial) 40 mg IVP TID [facility] Last Admin: 05/31/24 06:04 Dose: 40 mg Hydromorphone HCl (Hydromorphone 2 Mg Tablet) 2 mg PO Q6HR PRN PRN Reason: Severe Pain (Level 7-10) Last Admin: 05/31/24 06:02 Dose: 2 mg Hydroxychloroquine Sulfate (Hydroxychloroquine 200 Mg Tablet) 400 mg PO QPM [facility] Last Admin: 05/30/24 21:55 Dose: 400 mg Piperacillin Sod/Tazobactam (Sod 3.375 gm/ Sodium Chloride) 100 mls @ 200 mls/hr IV Q8H [facility] Last Infusion: 05/31/24 12:33 Dose: Infused Lorazepam (Lorazepam 1 Mg Tablet) 1 mg PO HS PRN PRN Reason: Anxiety Last Admin: 05/29/24 22:13 Dose: 1 mg Megestrol Acetate (Megestrol 400 Mg/10 Ml Udc) 800 mg PO DAILY [facility] Last Admin: 05/31/24 08:59 Dose: 800 mg Mineral Oil (Min Oil/Dimethicon/Coconut Oil 92 Gm Tube) 1 applic TOP PRN PRN PRN Reason: Skin Care Last Admin: 05/31/24 05:13 Dose: 1 applic Mirtazapine (Mirtazapine 15 Mg Tablet) 7.5 mg PO QPM [facility] Last Admin: 05/30/24 21:55 Dose: 7.5 mg Multivitamins/Minerals (Multivitamin W/Minerals Tablet) 1 tab PO DAILYWM [facility] Last Admin: 05/31/24 09:01 Dose: 1 tab Ondansetron HCl (Ondansetron Odt 4 Mg Tablet) 4 mg TL Q6HR PRN PRN Reason: Nausea / Vomiting Ondansetron HCl (Ondansetron 4 Mg/2 Ml Vial) 4 mg IVP Q6HR PRN PRN Reason: Nausea / Vomiting Potassium Chloride (Potassium Chloride 20 Meq Tablet) 20 meq PO DAILYWM [facility] Last Admin: 05/31/24 09:01 Dose: 20 meq Saccharomyces Boulardii (Saccharomyces Boulardii 250 Mg Capsule) 250 mg PO BIDWM [facility] Last Admin: 05/31/24 09:01 Dose: 250 mg Sertraline HCl (Sertraline 50 Mg Tablet) 100 mg PO QPM [facility] Last Admin: 05/30/24 21:55 Dose: 100 mg Simethicone (Simethicone Chew 80 Mg Tablet) 80 mg PO Q6HR PRN PRN Reason: Gas Last Admin: 05/30/24 10:29 Dose: 80 mg Sodium Chloride (Sodium Chloride Flush 0.9% 10 Ml Syringe) 10 ml IVP PRN PRN PRN Reason: NEEDED PER PROVIDER ORDERS Last Admin: 05/27/24 18:44 Dose: 10 ml Sodium Chloride (Sodium Chloride Flush 0.9% 10 Ml Syringe) 10 ml IVP 0100,0900,1700 [facility] Last Admin: 05/31/24 09:01 Dose: 10 ml Zinc Sulfate (Zinc Sulfate 220 Mg Capsule) 220 mg PO DAILY [facility] Last Admin: 05/31/24 09:01 Dose: 220 mg Hydroxychloroquine [Plaquenil] 300 mg PO QPM 04/10/17 Sertraline [Zoloft] 100 mg PO QPM 04/10/17 carvediloL [Carvedilol] 25 mg PO BIDWM 04/10/17 Acetaminophen [Tylenol] 500 tab PO DAILY 10/20/22 Atorvastatin [Lipitor] 10 mg PO HS 10/20/22 Cholecalciferol [Vitamin D3] 5,000 unit PO DAILY 10/20/22 Multivitamin [Theragran] 1 tab PO DAILY 10/20/22 Furosemide [Lasix] 40 mg PO DAILY 07/18/23 Hydromorphone HCl 4 mg PO BID PRN 07/18/23 Potassium Chloride 30 meq PO QDBREAKFAST 07/18/23 dilTIAZem HCL [Diltiazem 24Hr ER (Xr)] 120 mg PO DAILY 07/18/23 Apixaban [Eliquis] 1 tab PO BID 05/26/24 Bifidobacterium Infantis [Align] 1 tab PO DAILY 05/26/24 Esomeprazole Magnesium [Nexium 24Hr] 1 cap PO DAILY 05/26/24 Ondansetron HCl 4 mg PO BID PRN 05/26/24 Vit B Comp/Folic/Choline/Inosi [B-100 Complex Capsule] 1 tab PO DAILY 05/26/24 polyethylene glycoL 3350(BULK) [Miralax (Bulk)] 17 gr PO DAILY PRN 05/26/24 - Allergies Allergies/Adverse Reactions: Allergies Allergy/AdvReac Type Severity Reaction Status Date / Time prochlorperazine edisylate * Allergy Severe Unknown Verified 05/24/24 18:02 [From Compazine] prochlorperazine Allergy Unknown Verified 05/24/24 18:02 [From Compazine] prochlorperazine maleate * Allergy Unknown Verified 05/24/24 18:02 [From Compazine] codeine AdvReac Severe Emesis Verified 05/24/24 18:02 hydrocodone AdvReac Nausea Verified 05/24/24 18:02 monosodium glutamate AdvReac Emesis Verified 05/24/24 18:02 oxycodone AdvReac Emesis Verified 05/24/24 18:02 Review of Systems - Constitutional Constitutional: reports: Fatigue, Poor appetite, Weight loss - Ears, Nose & Throat Ears, Nose & Throat: reports: Dry mouth - Respiratory Respiratory: reports: SOB at rest - Gastrointestinal Gastrointestinal: reports: Abdominal distention, Nausea, Bloating, Poor appetite, Early satiety - Genitourinary Genitourinary: reports: Other (has purwick on) - Musculoskeletal Musculoskeletal: reports: Stiffness, Muscle weakness, Other (more difficulty transfer last couple of weeks; difficulty with weight bearing) - Neurological Neurological: reports: General weakness - Psychiatric Psychiatric: reports: Depression, Anxiety - Hematologic/Lymphatic Hematologic/Lymph: reports: Anemia Physical Exam - Vital Signs Vital Signs: Vital Signs x48h Temp Pulse Resp BP Pulse Ox O2 Flow Rate 05/31/24 08:00 36.4 C L 86 18 137/85 H 98 2 05/31/24 07:32 3 - Physical Exam General Appearance: positive: Mild distress, Anxious, Cachetic ENT: positive: Dry mucous membranes Neck: positive: Trachea midline Respiratory: positive: Other (respiratory effort at rest and with conversation; increased RR with anxiety) Skin: positive: Pallor Neurologic/Psychiatric: positive: Oriented x3, Depressed mood/affect, Flat affect Palliative Care Pain: Pain worsening, Location (right hip at baseline; uses hydromorphone 4 mg BID, has been getting IV 2 mg QID per report; may want to transition back to oral with pending transition to SNF; patient c/o pain in wound site) Tiredness/Fatigue: Severe (7-10) Performance Status: Patient had been transfer with gait belt and with contact assist prior to acute decline; bedbound for several moths. - Palliative Care Discussion: Discussion regarding patient's current goals and understanding of current status. Explored patient's journey up to this point, it has been difficult and they have been disappointed in the context they had put their hope into having her hip replaced. Patient is too frail and Ortho was quite upfront regarding this, this was uploaded to them. Also the rapid change in her functional status as well as her wound, and now facing the next around with transition to SNF. At this point their goals are looking for wound healing, improve strength, and being able to manage more easily at home. Counseling provided regarding the co ntinuum of care in the context of SNF versus home health, and transitioning to home health as part of the continuum of rehab. Explored quality versus quantity, patient is currently taking pured foods, reviewed revisiting questions around tube feedings both benefits and risks. Provided hard choices for loving people, addressed questions as able.EncouragedTo continue to focus on the bigger picture, what is most important, priorities. Patient does present is quite frail, both with functional decline, weight loss, discussed decub as a symptom of her current serious illness etiology.Patient with anxiety when discussed further what is most important to her as far as identifying quality of life, she has had multiple hospitalizations, complications, and medical condition she is dealt with over the years, but does appear quite fatigued. Results - Lab Results Lab results reviewed: Yes Fish Bones: 05/31/24 04:44 05/31/24 04:44 Lab and Imaging Results: Lab Results x24hrs 05/31/24 05/31/24 Range/Units 04:44 04:44 WBC 9.0 (4.8-10.8) x10^3/uL RBC 2.82 L (4.20-5.40) 10^6/uL Hgb 8.0 L (12.0-16.0) g/dL Hct 27.1 L (37.0-47.0) % MCV 96.1 (81.0-99.0) fL MCH 28.4 (27.0-31.0) pg MCHC 29.5 L (32.0-36.0) g/dL RDW 23.8 H (12.0-15.0) % Plt Count 279 (130-450) 10^3/uL MPV 10.0 (7.9-10.8) fL Neut # (Auto) 7.6 H (1.5-6.6) 10^3/uL Lymph # (Auto) 0.7 L (1.5-3.5) 10^3/uL [place] # (Auto) 0.4 (0.0-1.0) 10^3/uL Eos # (Auto) 0.2 (0.0-0.7) 10^3/uL Baso # (Auto) 0.0 (0.0-0.1) 10^3/uL Absolute Nucleated RBC 0.00 x10^3/uL Nucleated RBC % 0.0 /100WBC Manual Slide Review Indicated Platelet Estimate NORMAL (130-450,000) (NORMAL) RBC Morph Micro Appear 1+ OVALOCYTES (NORMAL) Sodium 141 (135-145) mmol/L Potassium 3.0 L (3.5-4.5) mmol/L Chloride 96 L (101-111) mmol/L Carbon Dioxide 42 H* (21-32) mmol/L Anion Gap 3.0 L (6-13) BUN 20 (6-20) mg/dL Creatinine 0.5 L (0.6-1.3) mg/dL Estimated GFR (MDRD) 119 (>89) Glucose 95 (74-104) mg/dL Calcium 7.8 L (8.5-10.3) mg/dL Phosphorus 2.4 L (2.5-5.0) mg/dL Magnesium 2.0 (1.7-2.3) mg/dL Albumin 2.4 L (3.2-5.5) g/dL Impression and Recommendations - Palliative Care Impression: This is a 78-year-old woman with complex medical history, who presents with failure to thrive, with declining functional status, weight loss, multiple comorbidities, and stage III decub requiring debridement. Patient's goals are to heal wound, engage and getting stronger, recognizing her decline. Palliative care providing support and introduction to services, transition planning, and anticipatory guidance. Recommendations/Counseling Done: 1. Failure to thrive. Patient's goals are for improvement, increase nutritional support, is doing better on pured diet today. Encouraged regarding working within patient's limitations including early satiety, anorexia, bloating and abdominal discomfort. Unfortunately this makes her at high risk for also complications and discomfort with PEG tube, at this time will re-evaluate at later date. Patient does present on the Goyo index, as a 9. This is a prognostic indicator of hospital lysed adults age 70 and older looking at all because 1 year mortality. Risk calculators cannot practic the future for 1 individual but given estimate of how many people with similar risk factors will live and but cannot identify who will live and he will . And she falls within the risk of 1 year mortality of 64%. 2.Goals of care. Patient and both focused on moving forward, hoping to heal stage III decub, though recognizing challenges, as well as support through SNF for improving functional status, goal is for functional transfers. Counseling provided regarding the continuum of care for rehab, including home health referral on discharge from SNF, difference with fpc care, and option for further palliative care follow-up as patient has been homebound.Addressed questions regarding tube feedings, palliative care, continuum of care, anticipatory guidance explored, both with high anxiety regarding patient's current status, provided hard choices for loving people for further education and support. Did not explore CODE STATUS, as conversations very anxiety producing for patient, and agreed could revisit conversations and more information and time has evolved. 60 minutes with review of chart, coordination of care with hospitalist, counseling with patient and regarding goals of care, continuum of care and anticipatory guidance.
--- NOTE | 2024-05-31 16:09 | PROVIDER PROGRESS NOTE ---
Subjective - Subjective Subjective: denies pain. feels ok Objective - Vital Signs/Intake & Output Reviewed Vital Signs: Yes Intake & Output: Intake & Output 05/28/24 05/29/24 05/30/24 05/31/24 23:59 23:59 23:59 23:59 Intake Total 1480 1895 1130 570 Output Total 3750 4420 1236 2170 Balance -9990 -755 -3620 -1230 - Objective General Appearance: positive: No acute distress, Alert Neurologic/Psychiatric: positive: Oriented x3 Comments/Other: pressure ulcer not examined by me today. spoke with nurse. clean open wound without tissue. agree with current care will see her tomorrow - Lab Results Fish Bones: 05/31/24 04:44 05/31/24 04:44 Other Labs: Lab Results x24hrs 05/31/24 05/31/24 Range/Units 04:44 04:44 WBC 9.0 (4.8-10.8) x10^3/uL RBC 2.82 L (4.20-5.40) 10^6/uL Hgb 8.0 L (12.0-16.0) g/dL Hct 27.1 L (37.0-47.0) % MCV 96.1 (81.0-99.0) fL MCH 28.4 (27.0-31.0) pg MCHC 29.5 L (32.0-36.0) g/dL RDW 23.8 H (12.0-15.0) % Plt Count 279 (130-450) 10^3/uL MPV 10.0 (7.9-10.8) fL Neut # (Auto) 7.6 H (1.5-6.6) 10^3/uL Lymph # (Auto) 0.7 L (1.5-3.5) 10^3/uL [place] # (Auto) 0.4 (0.0-1.0) 10^3/uL Eos # (Auto) 0.2 (0.0-0.7) 10^3/uL Baso # (Auto) 0.0 (0.0-0.1) 10^3/uL Absolute Nucleated RBC 0.00 x10^3/uL Nucleated RBC % 0.0 /100WBC Manual Slide Review Indicated Platelet Estimate NORMAL (130-450,000) (NORMAL) RBC Morph Micro Appear 1+ OVALOCYTES (NORMAL) Sodium 141 (135-145) mmol/L Potassium 3.0 L (3.5-4.5) mmol/L Chloride 96 L (101-111) mmol/L Carbon Dioxide 42 H* (21-32) mmol/L Anion Gap 3.0 L (6-13) BUN 20 (6-20) mg/dL Creatinine 0.5 L (0.6-1.3) mg/dL Estimated GFR (MDRD) 119 (>89) Glucose 95 (74-104) mg/dL Calcium 7.8 L (8.5-10.3) mg/dL Phosphorus 2.4 L (2.5-5.0) mg/dL Magnesium 2.0 (1.7-2.3) mg/dL Albumin 2.4 L (3.2-5.5) g/dL Sepsis Event Note (H) - Evaluation Current Stage of Sepsis: Ruled out
--- NOTE | 2024-05-31 16:45 | Discharge Plan ---
"Discharge Plan for SNF / [facility] - Discharge Plan And Transition Orders Problem Reviewed?: Yes Disposition: 03 SNF DC/Xfer Condition: Fair Allergies and Adverse Reactions: Allergies Allergy/AdvReac Type Severity Reaction Status Date / Time prochlorperazine edisylate * Allergy Severe Unknown Verified 05/24/24 18:02 [From Compazine] prochlorperazine Allergy Unknown Verified 05/24/24 18:02 [From Compazine] prochlorperazine maleate * Allergy Unknown Verified 05/24/24 18:02 [From Compazine] codeine AdvReac Severe Emesis Verified 05/24/24 18:02 hydrocodone AdvReac Nausea Verified 05/24/24 18:02 monosodium glutamate AdvReac Emesis Verified 05/24/24 18:02 oxycodone AdvReac Emesis Verified 05/24/24 18:02 Health Concerns: The patient was admitted with an infected sacral decubitus ulcer. She went to the OR on 05/25/2024 for surgical debridement. She completed a course of antibiotic therapy. She then developed respiratory failure due to heart failure. She was aggresively treated with IV lasix with some improvement. She will be going to the facility on oxygen but hopefully this can be weaned off over the next week or two. Her appetite was poor and she has had increasing dysphagia over the past several months. Shehas developed anxiety about eating that has contributed to her weight loss. She was changed to a pureed diet and is able to tolerate it quite well. Would recommend speech therapy evaluation at the facility as we did not have speech available here. - SNF / RESIDENTIAL Transition Orders Admit to (Facility): [facility] Discharge Diagnosis: 1. Acute hypoxic respiratory failure Secondary to decompensated heart failure. The patient's oxygen requirements are decreasing. She was aggressively diuresed. Still requiring 2 L of oxygen at discharge. Would continue to try to wean her off of oxygen but would titrate to keep her oxygen saturations greater than 93% 2. Sacral decubitus ulcer, stage III This was infected at the time of admission. She underwent surgical debridement on May 25, 2024. She completed a course of IV antibiotics during the course of this hospitalization. Continue local wound care 3. Acute diastolic congestive heart failure She will be transition to 40 mg of p.o. Lasix daily at discharge. Would recommend weighing the patient every 2 to 3 days and notifying the staff MD if she gains more than 3 pounds. 4. SLE Continue home dose of Plaquenil 5. Severe protein calorie malnutrition The patient is finally able to eat better after being changed to a pured diet with thin liquids. She should be evaluated by the clinical dietitian at the facility and followed closely by speech therapy. Would recommend supplements 6. Dysphagia Speech therapy was not available during this hospitalization. Would recommend evaluation at the facility. The patient has been changed to a pured diet with thin liquids and is able to tolerate it much better. 7. Permanent atrial fibrillation Currently rate controlled. Continue Coreg 12.5 mg twice daily 8. Hypertension Again continue Coreg 9. Chronic prescription opiate use She will continue her home dose of hydromorphone 2 mg p.o. twice daily 10. Anxiety Continue lorazepam 1 mg p.o. at bedtime as needed for anxiety 11. Elevated liver function test This should be rechecked at the facility. Of undetermined significance but most likely due to passive congestion of the liver due to decompensated heart failure 12. Anemia Her hemoglobin is stable 13. Hypokalemia She will be sent out on potassium supplementation 14. Hypomagnesemia we will place the patient on p.o. magnesium at discharge 15. Sarcopenia; patient is bedbound The patient would like to get back up on her feet. Her goal is to be able to s tand up and pivot to a bedside commode or wheelchair. She should work with physical therapy and Occupational Therapy at the facility Medicare Certification Statement: I certify that Post Hospital half-way care is medically necessary on a continuing basis for any of the conditions for which she/he is receiving care during hospitalization. Notify PCP of admission and forward orders to primary provider for signature. Weight on admission and: Daily Call PCP immediately if weight increases by: 2 kg Other Notification Orders: Call PCP immediately if patient develops dyspnea, chest pain/tightness or edema. House Bowel Program: Yes Additional Bowel Program Orders: If no BM after 2 days, nurse may give M.O.M. 30ml PO PRN and/or ducolax Supp 1 TN and/or ELAN 250mg P.O., and/or senna 1-2 tabs PO. On day 3 nurse may give repeat above order until residents constipation is resolved. Annual Influenza Vaccine (between Jun 17 and January 14): Yes Two-step PPD per [facility] [id number] or approved exception documents: Yes Oxygen Orders: Titrate oxygen to keep O2 saturations greater than 93%. Currently on 2 L of oxygen at discharge Lab Tests or X-ray Orders: CBC, CMP, Mag in 1 week Medication Orders: PLEASE REFER TO THE DISCHARGE MEDICATION LIST. - Medications New Prescriptions: HYDROmorphone [Dilaudid] 2 mg PO Q6HR PRN #12 tab PRN Reason: Severe Pain (Level 7-10) Ondansetron Odt [Zofran Odt] 4 mg TL Q6HR PRN #30 tab PRN Reason: Nausea / Vomiting LORazepam [Ativan] 1 mg PO HS PRN #30 tab PRN Reason: Anxiety carvediloL [Coreg] 12.5 mg PO BID #60 tab carvediloL [Coreg] 12.5 mg PO BIDWM #60 tab Furosemide [Lasix] 40 mg PO DAILY #30 tablet - Diet Type: Geriatric Texture: Puree Liquids: Thin Supplements: Boost or Ensure TID May have monthly special meal: Yes - Therapies | Activity Therapy: Evaluation | Treat if indicated: PT, OT, Swallowing / ST Rehabilitation Potential: Maximize functional status Activity: Activity as Tolerated Weight Bearing: Full Weight Assistance Devices: Wheelchair, Walker Follow Up: Staff MD in 1 week"
--- NOTE | 2024-05-31 17:11 | DISCHARGE SUMMARY ---
Discharge Summary Admit Date: 05/24/24 Discharge Date: 06/01/24 Discharging Provider: Lela Miller PA-C Code Status: Attempt Resuscitation Condition at Discharge: Fair Discharge Disposition: SNF DC/Xfer Discharge Facility Name: [facility] - DIAGNOSES Discharge Diagnoses with Status of Each Condition: 1. Acute hypoxic respiratory failure Secondary to decompensated heart failure. The patient's oxygen requirements are decreasing. She was aggressively diuresed. Still requiring 2 L of oxygen at discharge. Would continue to try to wean her off of oxygen but would titrate to keep her oxygen saturations greater than 93% 2. Sacral decubitus ulcer, stage III This was infected at the time of admission. She underwent surgical debridement on May 25, 2024. She completed a course of IV antibiotics during the course of this hospitalization. Continue local wound care 3. Acute diastolic congestive heart failure She will be transition to 40 mg of p.o. Lasix daily at discharge. Would recommend weighing the patient every 2 to 3 days and notifying the staff MD if she gains more than 3 pounds. 4. SLE Continue home dose of Plaquenil 5. Severe protein calorie malnutrition The patient is finally able to eat better after being changed to a pured diet with thin liquids. She should be evaluated by the clinical dietitian at the facility and followed closely by speech therapy. Would recommend supplements 6. Dysphagia Speech therapy was not available during this hospitalization. Would recommend evaluation at the facility. The patient has been changed to a pured diet with thin liquids and is able to tolerate it much better. 7. Permanent atrial fibrillation Currently rate controlled. Continue Coreg 12.5 mg twice daily 8. Hypertension Again continue Coreg 9. Chronic prescription opiate use She will continue her home dose of hydromorphone 2 mg p.o. twice daily 10. Anxiety Continue lorazepam 1 mg p.o. at bedtime as needed for anxiety 11. Elevated liver function test This should be rechecked at the facility. Of undetermined significance but most likely due to passive congestion of the liver due to decompensated heart failure 12. Anemia Her hemoglobin is stable 13. Hypokalemia She will be sent out on potassium supplementation 14. Hypomagnesemia We will place the patient on p.o. magnesium at discharge 15. Sarcopenia; patient is bedbound The patient would like to get back up on her feet. Her goal is to be able to stand up and pivot to a bedside commode or wheelchair. She should work with physical therapy and Occupational Therapy at the facility - [facility] History of Present Illness: From the admission HP: Mrs. Vallecillo is a pleasant 78yoF that presented with a history of atrial fibrillation. She presented to the ED for evaluation of worsening sacral wound. She has been less mobile due to right hip which requires replacement. She started to develop some skin breakdown in her sacral area a few weeks prior to presentation.when it did not heal she went to urgent care for evaluation.It has quickly progressed from stage I to stage III in the past few weeks. she has surround area of cellulitis and drainage from the wound. In the Ed, patient vitals were stable, she was afebrile and normatensive. CT was obtained adn was negative for abscess formation or osteomylitis. she was started on antibiotics. Ed physician spoke with general surgeon miguel , who agreed to see in consultation. during my evaluation, patient was not in any acute distress. was present at bedside during my interview.this visit was performed using real-time telehealth tools, including live video. Informed consent was obtained to proceed with this visit using the available tele-health modalities. - HOSPITAL COURSE Hospital Course: Please see complete medical record for details. This was a prolonged hospitalization and this will be a brief summary. The patient was admitted to the hospital with an infected stage III decubitus ulcer. She went to the operating room on May 25, 2024 for surgical debridement. She tolerated the procedure well. Her hospitalization was complicated by the development of acute respiratory failure. The patient was found to be significantly volume overloaded with severe pulmonary edema. She did have a 2D echocardiogram which revealed normal LV function. She was aggressively diuresed with 40 mg of IV Lasix 3 times daily for several days. The patient began to clinically improve from a respiratory standpoint and her oxygen requirements began to go down. On the day of discharge she still requiring 2 L of oxygen. Of note the patient was on Lasix prior to coming to the hospital and this was not continued. I am going to place her back on her home dose of Lasix and home potassium supplementation. Hopefully over the next week or 2 she will be able to be totally weaned off of oxygen. The patient is extremely weak and cachectic. She has had a clinical decline over the past 6 months and has become bedbound and has not been out of bed in the past several months. Her nutritional status is poor and she has severe protein calorie malnutrition. Discussions were had with the patient's who is struggling to come to terms with her decline. He had rather unrealistic expectations of wound healing and felt that her wound would likely clear up during her rehab stay. As we discussed her clinical picture and poor nutritiona l status he became quite interested in having a possible PEG tube placed. The risks and benefits were explained to him and he would like to have it placed however the patient is not so sure. She has developed worsening dysphagia over the past several months. She has been developing severe anxiety around food and her ability to swallow and she just has not been eating much. Unfortunately we do not have speech therapy available to formally evaluate. However she was noted at the bedside to be choking and coughing after eating a minced diet. Her diet was changed to a pured diet with thin liquids and she was able to tolerate it quite well. After this change was made she was able to eat without difficulty. After long discussion with the patient and her they would like to see how she does with her diet at the facility. I would recommend that speech therapy evaluate her and the clinical dietitian follow her closely. She will need aggressive wound care going forward. Her goal would be to be able to stand up and pivot to a wheelchair or bedside commode. She should receive physical therapy and Occupational Therapy at the facility as well to help her possibly achieve her goals. Due to her poor overall picture palliative care was consulted to see the patient during this hospitalization. They saw the patient on 05/31/2024 and their input is greatly appreciated. Should the patient be readmitted to the hospital would recommend getting palliative care to come have continued conversations with the patient and her family. At this point maximum hospital benefit has been reached. The patient is stable on the day of discharge and can be transported to her skilled facility for further rehab - ALLERGIES Allergies/Adverse Reactions: Allergies Allergy/AdvReac Type Severity Reaction Status Date / Time prochlorperazine edisylate * Allergy Severe Unknown Verified 05/24/24 18:02 [From Compazine] prochlorperazine Allergy Unknown Verified 05/24/24 18:02 [From Compazine] prochlorperazine maleate * Allergy Unknown Verified 05/24/24 18:02 [From Compazine] codeine AdvReac Severe Emesis Verified 05/24/24 18:02 hydrocodone AdvReac Nausea Verified 05/24/24 18:02 monosodium glutamate AdvReac Emesis Verified 05/24/24 18:02 oxycodone AdvReac Emesis Verified 05/24/24 18:02 - MEDICATIONS Home Medications: Ambulatory Orders Medication Instructions Recorded Confirmed Hydroxychloroquine [Plaquenil] 300 mg PO QPM 04/10/17 05/26/24 Sertraline [Zoloft] 100 mg PO QPM 04/10/17 05/26/24 Atorvastatin [Lipitor] 10 mg PO HS 10/20/22 05/26/24 Cholecalciferol [Vitamin D3] 5,000 unit PO DAILY 10/20/22 05/26/24 Potassium Chloride 30 meq PO QDBREAKFAST 07/18/23 05/26/24 Apixaban [Eliquis] 1 tab PO BID 05/26/24 05/26/24 Acetaminophen [Tylenol] 650 mg PO Q4HR PRN tab 05/31/24 Ascorbic Acid [Vitamin C] 500 mg PO DAILY tab 05/31/24 Furosemide [Lasix] 40 mg PO DAILY #30 tablet 05/31/24 HYDROmorphone [Dilaudid] 2 mg PO Q6HR PRN #12 tab 05/31/24 LORazepam [Ativan] 1 mg PO HS PRN #30 tab 05/31/24 Megestrol [Megace] 800 mg PO DAILY ea 05/31/24 Min Oil/Dimeth/Coconut Oil Crm 1 applic TOP PRN PRN each 05/31/24 [Cavilon] Mirtazapine [Remeron] 7.5 mg PO QPM tab 05/31/24 Multivitamin W/Minerals [Theragran 1 tab PO DAILYWM tab 05/31/24 M] Ondansetron Odt [Zofran Odt] 4 mg TL Q6HR PRN #30 tab 05/31/24 Saccharomyces Boulardii [Florastor] 250 mg PO BIDWM cap 05/31/24 Simethicone [Mylicon] 80 mg PO Q6HR PRN tab 05/31/24 Zinc Sulfate 220 mg PO DAILY cap 05/31/24 carvediloL [Coreg] 12.5 mg PO BID #60 tab 08/15/24 carvediloL [Coreg] 12.5 mg PO BIDWM #60 tab 05/31/24 - PHYSICAL EXAM AT DISCHARGE General Appearance: positive: No acute distress, Other (Severely cachectic with severe bitemporal muscle wasting) Eyes Bilateral: positive: Normal inspection ENT: positive: ENT inspection nml Neck: positive: Nml inspection Respiratory: positive: Chest non-tender, No respiratory distress, Breath sounds nml, Other (She is receiving oxygen via nasal cannula at 2 L) Cardiovascular: positive: No murmur, No gallop, Irregularly irregular. negative: Friction rub Abdomen: positive: Non-tender, No organomegaly, Nml bowel sounds Skin: positive: Color nml, No rash, Warm Extremities: positive: Other (Severe muscle wasting and fat loss throughout all 4 extremities). negative: Pedal edema Neurologic/Psychiatric: positive: Oriented x3, CN's nml (2-12) - LABS Result Diagrams: 05/31/24 04:44 05/31/24 04:44 - SEPSIS Current Stage of Sepsis: Ruled out - FOLLOW UP Follow Up: The patient will follow-up with the staff MD in 1 week. She should follow-up with her primary care physician when she gets out of. - TIME SPENT Time Spent in Discharge (Minutes): 45
[2024-06-01 05:27] LABS: BASOPHILS % (AUTO) 0.5 %; EOSINOPHILS # (AUTO) 0.2 10^3/uL (0.0-0.7); EOSINOPHILS % (AUTO) 2.7 %; HGB - HEMOGLOBIN 8.7 g/dL (12.0-16.0); LYMPHOCYTES # (AUTO) 0.7 10^3/uL (1.5-3.5); LYMPHOCYTES % (AUTO) 8.9 %; MEAN CORPUSCULAR HEMOGLOBIN 28.5 pg (27.0-31.0); MEAN CORPUSCULAR VOLUME 95.1 fL (81.0-99.0); MEAN PLATELET VOLUME 9.5 fL (7.9-10.8); MONOCYTES # (AUTO) 0.4 10^3/uL (0.0-1.0); NEUTROPHILS # (AUTO) 6.6 10^3/uL (1.5-6.6); NEUTROPHILS % (AUTO) 82.4 %; PLT - PLATELET COUNT 293 10^3/uL (130-450); RED BLOOD COUNT 3.05 10^6/uL (4.20-5.40); RED CELL DISTRIBUTION WIDTH 23.8 % (12.0-15.0); WHITE BLOOD COUNT 8.1 x10^3/uL (4.8-10.8)
[2024-06-01 05:32] LABS: SLIDE REVIEW? Indicated
[2024-06-01 05:42] LABS: ALBUMIN 2.4 g/dL (3.2-5.5); PHOSPHORUS 2.9 mg/dL (2.5-5.0)
[2024-06-01 05:49] LABS: CALCIUM 8.2 mg/dL (8.5-10.3); CREATININE 0.5 mg/dL (0.6-1.3); POTASSIUM 2.9 mmol/L (3.5-4.5)
[2024-06-01 06:03] LABS: PLATELET ESTIMATE, MANUAL NORMAL (130-450,000) (NORMAL); PLATELET MORPHOLOGY NORMAL APPEARANCE (NORMAL); RBC MORPHOLOGY (MULTIPLE) 1+ ANISOCYTOSIS (NORMAL); WBC MORPHOLOGY (MULTIPLE) NORMAL APPEARANCE (NORMAL)
[2024-06-01 07:46] LABS: VBG HCO3 39.7 mmol/L (23-28); VBG PCO2 40.1 mmHg (41-51); VBG PO2 68.1 mmHg (25-47)
[2024-06-01 07:47] LABS: VBG BASE EXCESS 16.8 mmol/L (-2 - +2); VBG OXYGEN SATURATION 95.3 % (60-80); VBG TOTAL CO2 40.9 mmol/L (24-29)
[2024-06-01 07:50] LABS: VBG PH 7.613 (7.31-7.41)
--- NOTE | 2024-06-01 08:02 | XRAY Report ---
PROCEDURE: Chest 1V INDICATIONS: f/u pulmonary edema TECHNIQUE: One view of the chest was acquired. COMPARISON: None. FINDINGS: Surgical changes and devices: Bilateral shoulder arthroplasties. Lungs and pleura: Unchanged extensive bilateral alveolar infiltrates. Left basilar atelectasis, as b efore. Left pleural fluid. Mediastinum: Mediastinal contours appear normal. Heart size is normal. Bones and chest wall: No suspicious bony lesions. Overlying soft tissues appear unremarkable. IMPRESSION: Unchanged pulmonary status. Reviewed by: Jefferson Lennon MD on 06/01/2024 8:01 AM PDT Approved by: Jefferson Lennon MD on 06/01/2024 8:01 AM PDT Station ID: [id number]
[2024-06-01] MEDS: LORazepam 1 MG TABLET PO STA (08:05)
[2024-06-01] MEDS: POTASSIUM CHLORIDE 20 MEQ TABLET PO SCH (09:01)
[2024-06-01] MEDS ORDERED: SODIUM CHLORIDE 0.9% IV SCH (10:00)
[2024-06-01] MEDS ORDERED: CHLOROTHIAZIDE IV SCH (10:00)
[2024-06-01] MEDS: acetaZOLAMIDE 250 MG TABLET PO SCH (10:22)
[2024-06-01] MEDS: SODIUM CHLORIDE 0.9% IV SCH (10:48)
[2024-06-01] MEDS: CHLOROTHIAZIDE IV SCH (10:48)
--- NOTE | 2024-06-01 11:48 | PROVIDER PROGRESS NOTE ---
Subjective - Prog Note Date Prog Note Date: 06/01/24 Prog Note Time: 11:50 - Subjective Pt reports feeling: Worse Subjective: This morning the patient was extremely anxious and was having increased shortness of breath. CO2 level has continued to rise and she is developed a rather significant contraction alkalosis. Treatment will be outlined below. At this point she is not stable to go to her skilled facility but I am hopeful that we can maybe get her there over the weekend. The patient denies fever or shaking chills. No chest pain. She is short of breath. Still having difficulty breathing. No nausea vomiting or diarrhea. She is tolerating the pured diet. No urinary complaints Current Medications - Current Medications Current Medications: Active Medications Generic Name Dose Route Start Last Admin Trade Name Freq PRN Reason Stop Dose Admin Acetaminophen 650 mg 05/24/24 21:32 05/31/24 22:16 Acetaminophen 325 Mg Tablet PO 650 mg Q4HR PRN Administration Pain 1 to 4, or Fever Acetazolamide 250 mg 06/01/24 10:00 06/01/24 10:22 Acetazolamide 250 Mg Tablet PO 250 mg DAILY BRITT Administration Apixaban 5 mg 05/25/24 09:00 06/01/24 09:00 Apixaban 5 Mg Tablet PO 5 mg BID BRITT Administration Ascorbic Acid 500 mg 05/29/24 17:00 06/01/24 08:59 Ascorbic Acid 500 Mg Tablet PO 500 mg DAILY BRITT Administration Atorvastatin Calcium 10 mg 05/25/24 21:00 05/31/24 22:15 Atorvastatin 10 Mg Tablet PO 10 mg HS BRITT Administration Carvedilol 25 mg 05/25/24 08:00 06/01/24 09:00 Carvedilol 12.5 Mg Tablet PO 25 mg BIDWM BRITT Administration Cholecalciferol 5,000 unit 05/25/24 09:00 06/01/24 09:00 Cholecalciferol 5,000 Unit Capsule PO 5,000 unit DAILY BRITT Administration Furosemide 40 mg 06/02/24 09:00 Furosemide 40 Mg Tablet PO DAILY BRITT Hydromorphone HCl 2 mg 05/25/24 07:58 06/01/24 02:30 Hydromorphone 2 Mg Tablet PO 2 mg Q6HR PRN Administration Severe Pain (Level 7-10) Hydroxychloroquine Sulfate 400 mg 05/25/24 21:00 05/31/24 22:16 Hydroxychloroquine 200 Mg Tablet PO 400 mg QPM BRITT Administration Piperacillin Sod/Tazobactam 100 mls @ 200 mls/hr 05/25/24 01:00 06/01/24 10:04 Sod 3.375 gm/ Sodium Chloride IV Infused Q8H BRITT Infusion Lorazepam 1 mg 05/27/24 13:56 05/29/24 22:13 Lorazepam 1 Mg Tablet PO 1 mg HS PRN Administration Anxiety Megestrol Acetate 800 mg 05/27/24 13:58 06/01/24 08:58 Megestrol 400 Mg/10 Ml Udc PO 800 mg DAILY BRITT Administration Mineral Oil 1 applic 05/27/24 22:18 05/31/24 05:13 Min Oil/Dimethicon/Coconut Oil 92 Gm Tube TOP 1 applic PRN PRN Administration Skin Care Mirtazapine 7.5 mg 05/25/24 21:00 05/31/24 22:16 Mirtazapine 15 Mg Tablet PO 7.5 mg QPM BRITT Administration Multivitamins/Minerals 1 tab 05/26/24 08:00 06/01/24 08:59 Multivitamin W/Minerals Tablet PO 1 tab DAILYWM BRITT Administration Ondansetron HCl 4 mg 05/24/24 21:32 Ondansetron Odt 4 Mg Tablet TL Q6HR PRN Nausea / Vomiting Ondansetron HCl 4 mg 05/24/24 21:32 Ondansetron 4 Mg/2 Ml Vial IVP Q6HR PRN Nausea / Vomiting Potassium Chloride 20 meq 05/28/24 08:00 06/01/24 06:50 Potassium Chloride 20 Meq Tablet PO 20 meq DAILYWM BRITT Administration Saccharomyces Boulardii 250 mg 05/25/24 08:00 06/01/24 08:59 Saccharomyces Boulardii 250 Mg Capsule PO 250 mg BIDWM BRITT Administration Sertraline HCl 100 mg 05/25/24 21:00 05/31/24 22:16 Sertraline 50 Mg Tablet PO 100 mg QPM BRITT Administration Simethicone 80 mg 05/28/24 07:50 05/30/24 10:29 Simethicone Chew 80 Mg Tablet PO 80 mg Q6HR PRN Administration Gas Sodium Chloride 10 ml 05/24/24 21:32 05/27/24 18:44 Sodium Chloride Flush 0.9% 10 Ml Syringe IVP 10 ml PRN PRN Administration NEEDED PER PROVIDER ORDERS Sodium Chloride 10 ml 05/25/24 01:00 06/01/24 09:01 Sodium Chloride Flush 0.9% 10 Ml Syringe IVP 10 ml 0100,0900,1700 BRITT Administration Zinc Sulfate 220 mg 05/29/24 17:00 06/01/24 09:00 Zinc Sulfate 220 Mg Capsule PO 220 mg DAILY BRITT Administration Hydroxychloroquine [Plaquenil] 300 mg PO QPM 04/10/17 Sertraline [Zoloft] 100 mg PO QPM 04/10/17 Atorvastatin [Lipitor] 10 mg PO HS 10/20/22 Cholecalciferol [Vitamin D3] 5,000 unit PO DAILY 10/20/22 Potassium Chloride 30 meq PO QDBREAKFAST 07/18/23 Apixaban [Eliquis] 1 tab PO BID 05/26/24 Objective - Vital Signs/Intake & Output Reviewed Vital Signs: Yes Vital Signs: Vital Signs x48h Temp Pulse Resp BP Pulse Ox O2 Flow Rate 06/01/24 08:26 2 06/01/24 07:51 36.5 C 67 18 137/102 H 91 L Intake & Output: Intake & Output 05/29/24 05/30/24 05/31/24 06/01/24 23:59 23:59 23:59 23:59 Intake Total 1895 1130 1370 470 Output Total 2650 4750 1900 900 Balance -755 -3620 -530 -430 - Objective General Appearance: positive: No acute distress Eyes Bilateral: positive: Normal inspection ENT: positive: ENT inspection nml Neck: positive: Nml inspection Respiratory: positive: Chest non-tender. negative: No respiratory distress (The patient is in mild respiratory distress. She has some scattered coarse rhonchi bilaterally) Cardiovascular: positive: Regular rate & rhythm, No murmur, No gallop. negative: Friction rub Abdomen: positive: Non-tender, No organomegaly, Nml bowel sounds Skin: positive: Color nml, No rash, Warm, Dry Extremities: positive: Other (Muscle wasting and fat loss throughout all 4 extremities) Neurologic/Psychiatric: positive: Oriented x3, CN's nml (2-12) - Lab Results Fish Bones: 06/01/24 05:05 06/01/24 05:05 Other Labs: Lab Results x24hrs 06/01/24 06/01/24 06/01/24 Range/Units 07:39 05:05 05:05 WBC 8.1 (4.8-10.8) x10^3/uL RBC 3.05 L (4.20-5.40) 10^6/uL Hgb 8.7 L (12.0-16.0) g/dL Hct 29.0 L (37.0-47.0) % MCV 95.1 (81.0-99.0) fL MCH 28.5 (27.0-31.0) pg MCHC 30.0 L (32.0-36.0) g/dL RDW 23.8 H (12.0-15.0) % Plt Count 293 (130-450) 10^3/uL MPV 9.5 (7.9-10.8) fL Neut # (Auto) 6.6 (1.5-6.6) 10^3/uL Lymph # (Auto) 0.7 L (1.5-3.5) 10^3/uL Sutton # (Auto) 0.4 (0.0-1.0) 10^3/uL Eos # (Auto) 0.2 (0.0-0.7) 10^3/uL Baso # (Auto) 0.0 (0.0-0.1) 10^3/uL Absolute Nucleated RBC 0.00 x10^3/uL Nucleated RBC % 0.0 /100WBC Manual Slide Review Indicated WBC Morphology NORMAL APPEARANCE (NORMAL) Platelet Estimate NORMAL (130-450,000) (NORMAL) Platelet Morphology NORMAL APPEARANCE (NORMAL) RBC Morph Micro Appear 1+ ANISOCYTOSIS (NORMAL) VBG pH 7.613 H* (7.31-7.41) VBG pCO2 40.1 L (41-51) mmHg VBG pO2 68.1 H (25-47) mmHg VBG HCO3 39.7 H (23-28) mmol/L VBG Total CO2 40.9 H (24-29) mmol/L VBG O2 Saturation 95.3 H (60-80) % VBG Base Excess 16.8 H (-2 - +2) mmol/L Sodium 142 (135-145) mmol/L Potassium 2.9 L (3.5-4.5) mmol/L Chloride 95 L (101-111) mmol/L Carbon Dioxide 44 H* (21-32) mmol/L Anion Gap 3.0 L (6-13) BUN 22 H (6-20) mg/dL Creatinine 0.5 L (0.6-1.3) mg/dL Estimated GFR (MDRD) 119 (>89) Glucose 89 (74-104) mg/dL Calcium 8.2 L (8.5-10.3) mg/dL Phosphorus 2.9 (2.5-5.0) mg/dL Magnesium 2.0 (1.7-2.3) mg/dL Albumin 2.4 L (3.2-5.5) g/dL SARS-CoV-2 (PCR) 05/31/24 Range/Units 17:35 WBC (4.8-10.8) x10^3/uL RBC (4.20-5.40) 10^6/uL Hgb (12.0-16.0) g/dL Hct (37.0-47.0) % MCV (81.0-99.0) fL MCH (27.0-31.0) pg MCHC (32.0-36.0) g/dL RDW (12.0-15.0) % Plt Count (130-450) 10^3/uL MPV (7.9-10.8) fL Neut # (Auto) (1.5-6.6) 10^3/uL Lymph # (Auto) (1.5-3.5) 10^3/uL Sutton # (Auto) (0.0-1.0) 10^3/uL Eos # (Auto) (0.0-0.7) 10^3/uL Baso # (Auto) (0.0-0.1) 10^3/uL Absolute Nucleated RBC x10^3/uL Nucleated RBC % /100WBC Manual Slide Review WBC Morphology (NORMAL) Platelet Estimate (NORMAL) Platelet Morphology (NORMAL) RBC Morph Micro Appear (NORMAL) VBG pH (7.31-7.41) VBG pCO2 (41-51) mmHg VBG pO2 (25-47) mmHg VBG HCO3 (23-28) mmol/L VBG Total CO2 (24-29) mmol/L VBG O2 Saturation (60-80) % VBG Base Excess (-2 - +2) mmol/L Sodium (135-145) mmol/L Potassium (3.5-4.5) mmol/L Chloride (101-111) mmol/L Carbon Dioxide (21-32) mmol/L Anion Gap (6-13) BUN (6-20) mg/dL Creatinine (0.6-1.3) mg/dL Estimated GFR (MDRD) (>89) Glucose (74-104) mg/dL Calcium (8.5-10.3) mg/dL Phosphorus (2.5-5.0) mg/dL Magnesium (1.7-2.3) mg/dL Albumin (3.2-5.5) g/dL SARS-CoV-2 (PCR) NOT DETECTED ABX Reporting Has patient been on IV antibiotics over the past 48 hours?: No Sepsis Event Note (H) - Evaluation Current Stage of Sepsis: Ruled out Assessment/Plan - Problem List (1) Acute respiratory failure with hypoxia Impression: The patient still has underlying respiratory failure. She likely will be needing oxygen going forward. (2) Sacral decubitus ulcer, stage III Impression: Continue local wound care. Status postdebridement on May 25, 2024 (3) Acute diastolic (congestive) heart failure Impression: She has developed a contraction alkalosis. IV Lasix will be stopped today. She will be given a dose of Diamox. Will repeat a VBG this afternoon. Will likely place her back on her home dose of p.o. Lasix tomorrow. Chest x-ray does still reveal persistent pulmonary edema (4) SLE (systemic lupus erythematosus) Impression: Continue Plaquenil (5) Severe protein-calorie malnutrition Impression: She is tolerating a pured diet. Continue supplements. She is working with the clinical dietitian. (6) Permanent atrial fibrillation Impression: Stable. She is on Eliquis for anticoagulation (8) Chronic prescription opiate use Impression: Continue home dose of opioids (9) Anxiety Impression: Stable. Continue Ativan 1 mg p.o. at bedtime as needed (10) Elevated liver function tests Impression: Of undetermined significance at this point. Continue to monitor (11) Anemia Impression: Stable (12) Hypokalemia Impression: This will be aggressively repleted today. We are stopping IV Lasix hopefully this will be a little bit better. She will resume her p.o. Lasix tomorrow (13) Hypomagnesemia Impression: Repleted and resolved (14) Sarcopenia Impression: The patient is bedbound at baseline. She will be going to subacute rehabilitation at discharge for wound care and also to try to improve her functional status Disposition: Inpatient hospitalization remains necessary. The patient has developed a contraction alkalosis. Her IV Lasix has been stopped and she will be initiated on Diamox. Hopefully she will be able to go to her skilled facility over the weekend. Time spent: 35 minutes
[2024-06-01 16:09] LABS: VBG BASE EXCESS 16.6 mmol/L (-2 - +2); VBG HCO3 39.2 mmol/L (23-28); VBG PCO2 38.9 mmHg (41-51); VBG PO2 45.2 mmHg (25-47); VBG TOTAL CO2 40.4 mmol/L (24-29)
[2024-06-01 16:12] LABS: VBG PH 7.621 (7.31-7.41)
[2024-06-02] MEDS: COD LIVER OIL/ZINC OXIDE 113 GM TUBE TOP PRN (06:00)
[2024-06-02 07:04] LABS: VBG PH 7.423 (7.31-7.41)
[2024-06-02 07:05] LABS: VBG BASE EXCESS 7.5 mmol/L (-2 - +2); VBG OXYGEN SATURATION 31.5 % (60-80); VBG PCO2 51.7 mmHg (41-51); VBG PO2 21.4 mmHg (25-47); VBG TOTAL CO2 34.6 mmol/L (24-29)
[2024-06-02 07:31] LABS: ALBUMIN 2.6 g/dL (3.2-5.5); CALCIUM 8.6 mg/dL (8.5-10.3); CREATININE 0.5 mg/dL (0.6-1.3); PHOSPHORUS 3.1 mg/dL (2.5-5.0); POTASSIUM 3.1 mmol/L (3.5-4.5)
[2024-06-02 08:00] LABS: BASOPHILS % (AUTO) 0.5 %; EOSINOPHILS # (AUTO) 0.2 10^3/uL (0.0-0.7); EOSINOPHILS % (AUTO) 2.2 %; HCT - HEMATOCRIT 31.8 % (37.0-47.0); HGB - HEMOGLOBIN 9.1 g/dL (12.0-16.0); LYMPHOCYTES # (AUTO) 0.6 10^3/uL (1.5-3.5); LYMPHOCYTES % (AUTO) 7.1 %; MEAN CORPUSCULAR HEMOGLOBIN 28.1 pg (27.0-31.0); MEAN CORPUSCULAR HGB CONC 28.6 g/dL (32.0-36.0); MEAN CORPUSCULAR VOLUME 98.1 fL (81.0-99.0); MEAN PLATELET VOLUME 9.9 fL (7.9-10.8); MONOCYTES # (AUTO) 0.4 10^3/uL (0.0-1.0); MONOCYTES % (AUTO) 4.7 %; NEUTROPHILS # (AUTO) 6.9 10^3/uL (1.5-6.6); PLT - PLATELET COUNT 375 10^3/uL (130-450); RED BLOOD COUNT 3.24 10^6/uL (4.20-5.40); RED CELL DISTRIBUTION WIDTH 23.6 % (12.0-15.0); WHITE BLOOD COUNT 8.2 x10^3/uL (4.8-10.8)
[2024-06-02 08:11] LABS: SLIDE REVIEW? Indicated
[2024-06-02 08:19] LABS: PLATELET ESTIMATE, MANUAL NORMAL (130-450,000) (NORMAL); PLATELET MORPHOLOGY NORMAL APPEARANCE (NORMAL)
[2024-06-02] MEDS: acetaZOLAMIDE 250 MG TABLET PO SCH (08:41)
[2024-06-02] MEDS: FUROSEMIDE 40 MG TABLET PO SCH (08:42)
--- NOTE | 2024-06-02 10:14 | PROVIDER PROGRESS NOTE ---
Subjective - Prog Note Date Prog Note Date: 06/02/24 Prog Note Time: 10:15 - Subjective Pt reports feeling: Improved Subjective: The patient is doing better today. Her blood gas this morning is normalizing and she is feeling stable. She denies fever or chills. She still has quite a bit of shortness of breath but it is stable. Still requiring oxygen. No nausea or vomiting. Her appetite is improving and she is tolerating a pured diet. She does not have any abdominal pain. She has not had a bowel movement today. No urinary complaints Current Medications - Current Medications Current Medications: Active Medications Generic Name Dose Route Start Last Admin Trade Name Freq PRN Reason Stop Dose Admin Acetaminophen 650 mg 05/24/24 21:32 05/31/24 22:16 Acetaminophen 325 Mg Tablet PO 650 mg Q4HR PRN Administration Pain 1 to 4, or Fever Apixaban 5 mg 05/25/24 09:00 06/02/24 08:42 Apixaban 5 Mg Tablet PO 5 mg BID BRITT Administration Ascorbic Acid 500 mg 05/29/24 17:00 06/02/24 08:42 Ascorbic Acid 500 Mg Tablet PO 500 mg DAILY BRITT Administration Atorvastatin Calcium 10 mg 05/25/24 21:00 06/01/24 20:45 Atorvastatin 10 Mg Tablet PO 10 mg HS BRITT Administration Carvedilol 25 mg 05/25/24 08:00 06/02/24 08:41 Carvedilol 12.5 Mg Tablet PO 25 mg BIDWM BRITT Administration Cholecalciferol 5,000 unit 05/25/24 09:00 06/02/24 08:42 Cholecalciferol 5,000 Unit Capsule PO 5,000 unit DAILY BRITT Administration Furosemide 40 mg 06/02/24 09:00 06/02/24 08:42 Furosemide 40 Mg Tablet PO 40 mg DAILY BRITT Administration Hydromorphone HCl 2 mg 05/25/24 07:58 06/02/24 01:00 Hydromorphone 2 Mg Tablet PO 2 mg Q6HR PRN Administration Severe Pain (Level 7-10) Hydroxychloroquine Sulfate 400 mg 05/25/24 21:00 06/01/24 20:44 Hydroxychloroquine 200 Mg Tablet PO 400 mg QPM BRITT Administration Lorazepam 1 mg 05/27/24 13:56 05/29/24 22:13 Lorazepam 1 Mg Tablet PO 1 mg HS PRN Administration Anxiety Megestrol Acetate 800 mg 05/27/24 13:58 06/02/24 08:41 Megestrol 400 Mg/10 Ml Udc PO 800 mg DAILY BRITT Administration Mineral Oil 1 applic 05/27/24 22:18 05/31/24 05:13 Min Oil/Dimethicon/Coconut Oil 92 Gm Tube TOP 1 applic PRN PRN Administration Skin Care Mirtazapine 7.5 mg 05/25/24 21:00 06/01/24 20:45 Mirtazapine 15 Mg Tablet PO 7.5 mg QPM BRITT Administration Multivitamins/Minerals 1 tab 05/26/24 08:00 06/02/24 08:42 Multivitamin W/Minerals Tablet PO 1 tab DAILYWM BRITT Administration Ondansetron HCl 4 mg 05/24/24 21:32 Ondansetron Odt 4 Mg Tablet TL Q6HR PRN Nausea / Vomiting Ondansetron HCl 4 mg 05/24/24 21:32 Ondansetron 4 Mg/2 Ml Vial IVP Q6HR PRN Nausea / Vomiting Potassium Chloride 40 meq 06/02/24 11:00 Potassium Chloride 20 Meq Tablet PO DAILY [facility] Saccharomyces Boulardii 250 mg 05/25/24 08:00 06/02/24 08:42 Saccharomyces Boulardii 250 Mg Capsule PO 250 mg BIDWM BRITT Administration Sertraline HCl 100 mg 05/25/24 21:00 06/01/24 20:44 Sertraline 50 Mg Tablet PO 100 mg QPM BRITT Administration Simethicone 80 mg 05/28/24 07:50 05/30/24 10:29 Simethicone Chew 80 Mg Tablet PO 80 mg Q6HR PRN Administration Gas Sodium Chloride 10 ml 05/24/24 21:32 05/27/24 18:44 Sodium Chloride Flush 0.9% 10 Ml Syringe IVP 10 ml PRN PRN Administration NEEDED PER PROVIDER ORDERS Sodium Chloride 10 ml 05/25/24 01:00 06/02/24 08:47 Sodium Chloride Flush 0.9% 10 Ml Syringe IVP 10 ml 0100,0900,1700 BRITT Administration Zinc Oxide 113 gm 06/02/24 01:30 06/02/24 06:00 Cod Liver Oil/Zinc Oxide 113 Gm Tube TOP 1 applic PRN PRN Administration Skin Care Zinc Sulfate 220 mg 05/29/24 17:00 06/02/24 08:42 Zinc Sulfate 220 Mg Capsule PO 220 mg DAILY BRITT Administration Hydroxychloroquine [Plaquenil] 300 mg PO QPM 04/10/17 Sertraline [Zoloft] 100 mg PO QPM 04/10/17 Atorvastatin [Lipitor] 10 mg PO HS 10/20/22 Cholecalciferol [Vitamin D3] 5,000 unit PO DAILY 10/20/22 Potassium Chloride 30 meq PO QDBREAKFAST 07/18/23 Apixaban [Eliquis] 1 tab PO BID 05/26/24 Objective - Vital Signs/Intake & Output Reviewed Vital Signs: Yes Vital Signs: Vital Signs x48h Temp Pulse Resp BP Pulse Ox O2 Flow Rate 06/02/24 08:40 1 06/02/24 08:39 36.5 C 98 20 129/90 H 95 1 06/02/24 06:25 36.5 C 94 18 139/98 H 93 1 Intake & Output: Intake & Output 05/30/24 05/31/24 06/01/24 06/02/24 23:59 23:59 23:59 23:59 Intake Total 1130 1370 1290 600 Output Total 4750 1900 1500 300 Balance -3620 -530 -210 300 - Objective General Appearance: positive: Other (Severely cachectic with muscle wasting and fat loss. She is receiving oxygen via nasal cannula and is somewhat anxious) Eyes Bilateral: positive: Normal inspection ENT: positive: ENT inspection nml, Other (She has bitemporal muscle wasting bilaterally that is quite severe) Neck: positive: Nml inspection Respiratory: positive: Chest non-tender, Other (She still has some mild conversational dyspnea. Oxygen saturations are stable on 2 L of oxygen) Cardiovascular: positive: No murmur, No gallop, Irregularly irregular. negative: Friction rub Abdomen: positive: Non-tender, No organomegaly, Nml bowel sounds, No distention Skin: positive: Color nml, No rash, Warm, Dry Extremities: positive: Non-tender, Other (Severe muscle wasting and fat loss throughout all 4 extremities) Neurologic/Psychiatric: positive: Oriented x3, CN's nml (2-12) - Lab Results Fish Bones: 06/02/24 06:58 06/02/24 06:58 Other Labs: Lab Results x24hrs 06/02/24 06/02/24 06/02/24 Range/Units 06:58 06:58 06:58 WBC 8.2 (4.8-10.8) x10^3/uL RBC 3.24 L (4.20-5.40) 10^6/uL Hgb 9.1 L (12.0-16.0) g/dL Hct 31.8 L (37.0-47.0) % MCV 98.1 (81.0-99.0) fL MCH 28.1 (27.0-31.0) pg MCHC 28.6 L (32.0-36.0) g/dL RDW 23.6 H (12.0-15.0) % Plt Count 375 (130-450) 10^3/uL MPV 9.9 (7.9-10.8) fL Neut # (Auto) 6.9 H (1.5-6.6) 10^3/uL Lymph # (Auto) 0.6 L (1.5-3.5) 10^3/uL [place] # (Auto) 0.4 (0.0-1.0) 10^3/uL Eos # (Auto) 0.2 (0.0-0.7) 10^3/uL Baso # (Auto) 0.0 (0.0-0.1) 10^3/uL Absolute Nucleated RBC 0.00 x10^3/uL Nucleated RBC % 0.0 /100WBC Manual Slide Review Indicated Platelet Estimate NORMAL (130-450,000) (NORMAL) Platelet Morphology NORMAL APPEARANCE (NORMAL) RBC Morph Micro Appear 1+ HYPOCHROMASIA (NORMAL) VBG pH 7.423 H (7.31-7.41) VBG pCO2 51.7 H (41-51) mmHg VBG pO2 21.4 L (25-47) mmHg VBG HCO3 33.0 H (23-28) mmol/L VBG Total CO2 34.6 H (24-29) mmol/L VBG O2 Saturation 31.5 L (60-80) % VBG Base Excess 7.5 H (-2 - +2) mmol/L Sodium 141 (135-145) mmol/L Potassium 3.1 L (3.5-4.5) mmol/L Chloride 101 (101-111) mmol/L Carbon Dioxide 37 H (21-32) mmol/L Anion Gap 3.0 L (6-13) BUN 21 H (6-20) mg/dL Creatinine 0.5 L (0.6-1.3) mg/dL Estimated GFR (MDRD) 119 (>89) Glucose 94 (74-104) mg/dL Calcium 8.6 (8.5-10.3) mg/dL Phosphorus 3.1 (2.5-5.0) mg/dL Magnesium 2.0 (1.7-2.3) mg/dL Albumin 2.6 L (3.2-5.5) g/dL 06/01/24 Range/Units 15:59 WBC (4.8-10.8) x10^3/uL RBC (4.20-5.40) 10^6/uL Hgb (12.0-16.0) g/dL Hct (37.0-47.0) % MCV (81.0-99.0) fL MCH (27.0-31.0) pg MCHC (32.0-36.0) g/dL RDW (12.0-15.0) % Plt Count (130-450) 10^3/uL MPV (7.9-10.8) fL Neut # (Auto) (1.5-6.6) 10^3/uL Lymph # (Auto) (1.5-3.5) 10^3/uL [place] # (Auto) (0.0-1.0) 10^3/uL Eos # (Auto) (0.0-0.7) 10^3/uL Baso # (Auto) (0.0-0.1) 10^3/uL Absolute Nucleated RBC x10^3/uL Nucleated RBC % /100WBC Manual Slide Review Platelet Estimate (NORMAL) Platelet Morphology (NORMAL) RBC Morph Micro Appear (NORMAL) VBG pH 7.621 H* (7.31-7.41) VBG pCO2 38.9 L (41-51) mmHg VBG pO2 45.2 (25-47) mmHg VBG HCO3 39.2 H (23-28) mmol/L VBG Total CO2 40.4 H (24-29) mmol/L VBG O2 Saturation 88.0 H (60-80) % VBG Base Excess 16.6 H (-2 - +2) mmol/L Sodium (135-145) mmol/L Potassium (3.5-4.5) mmol/L Chloride (101-111) mmol/L Carbon Dioxide (21-32) mmol/L Anion Gap (6-13) BUN (6-20) mg/dL Creatinine (0.6-1.3) mg/dL Estimated GFR (MDRD) (>89) Glucose (74-104) mg/dL Calcium (8.5-10.3) mg/dL Phosphorus (2.5-5.0) mg/dL Magnesium (1.7-2.3) mg/dL Albumin (3.2-5.5) g/dL ABX Reporting Has patient been on IV antibiotics over the past 48 hours?: Yes Sepsis Event Note (H) - Evaluation Current Stage of Sepsis: Ruled out Assessment/Plan - Problem List (1) Acute respiratory failure with hypoxia Impression: The patient is stable. This is due to decompensated heart failure. Her IV Lasix was stopped yesterday. She had developed a contraction alkalosis which has resolved with treatment with Diamox yesterday. Continue to titrate oxygen to keep her saturations greater than 92% (2) Sacral decubitus ulcer, stage III Impression: Continue local wound care. She is status postdebridement on 05/25/2024. (3) Acute diastolic (congestive) heart failure Impression: She still has quite a bit of pulmonary edema on her chest x-ray however we have diuresed her about is much as we can. We stopped her IV Lasix yesterday and she has been placed back on 40 mg of p.o. Lasix daily which is what she took at home. (4) SLE (systemic lupus erythematosus) Impression: Continue Plaquenil (5) Severe protein-calorie malnutrition Impression: The patient has significant muscle wasting and fat loss throughout her entire body. She has nutrition intake of less than 50% of recommended intake that has been ongoing for the past several months. She has had a 76% weight loss in the past year. She also has a stage III decubitus ulcer. She is now bedbound with significantly reduced functional capacity. Continue to try to maximize her functional status. She was having quite a bit of anxiety regarding eating because she had developed dysphagia. Currently stable on a pured diet. Continue supplements as recommended by the clinical dietitian (6) Permanent atrial fibrillation Impression: Currently rate controlled. She is on Eliquis for anticoagulation (7) Hypertension Impression: Continue carvedilol 12.5 mg daily (8) Chronic prescription opiate use Impression: Continue hydromorphone 2 mg twice daily as needed (9) Anxiety Impression: Continue lorazepam 1 mg p.o. nightly as needed for sleep (10) Elevated liver function tests Impression: Of undetermined significance. Possibly due to passive congestion of the liver. Continue to monitor (11) Moderate major depression Impression: Continue sertraline 100 mg daily (12) Anemia Impression: Likely related to chronic disease. Her hemoglobin is stable (13) Hypokalemia Impression: Her level is improved today. Still low. Will supplement with 40 mEq of p.o. Potassium and start this daily. She previously was on 20 mEq at home (14) Hypomagnesemia Impression: Repleted and resolved (15) Sarcopenia Impression: Significant muscle wasting and fat loss throughout her body. Profoundly weak and bedbound. Unable to ambulate. Continue to improve her nutritional status is possible. She will be going to [facility] for subacute rehabilitation and wound care at discharge. Tentatively planning on discharging Tuesday Disposition: Inpatient hospitalization remains necessary. The patient is finally stabilizing. Still with electrolyte abnormalities that need to be repleted and a very tenuous respiratory status. Will monitor her over the weekend and I am hopeful that she will be stable for discharge on Tuesday. Time spent: 35 minutes
[2024-06-02] MEDS ORDERED: POTASSIUM CHLORIDE 20 MEQ TABLET PO SCH (11:00)
[2024-06-02] MEDS: POTASSIUM CHLORIDE 20 MEQ TABLET PO SCH (11:42)
[2024-06-02] MEDS ORDERED: carvediloL 12.5 MG TABLET PO SCH (21:06)
[2024-06-02 21:24] LABS: VBG BASE EXCESS 7.6 mmol/L (-2 - +2); VBG HCO3 32.9 mmol/L (23-28); VBG OXYGEN SATURATION 91.7 % (60-80); VBG PCO2 51.2 mmHg (41-51); VBG PH 7.426 (7.31-7.41); VBG PO2 64.6 mmHg (25-47); VBG TOTAL CO2 34.5 mmol/L (24-29)
--- NOTE | 2024-06-02 21:30 | PROVIDER PROGRESS NOTE ---
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 Pt was previously A+Ox3, now not answering questions. Pt previously had high CO2. Current SBP 93, pt on NC O2 with good sats. Pt is Full Code per chart. VBG, CXR ordered. CO2 51. BIPAP ordered. Was told that for BIPAP placement, pt would need transfer to ICU. Transfer to ICU ordered. ~Triny Ramos MD Hospitalist Objective - Vital Signs/Intake & Output Vital Signs: Vital Signs x48h Temp Pulse Resp BP Pulse Ox O2 Flow Rate 06/02/24 20:35 36.8 C 83 24 98/66 99 2 06/02/24 16:26 36.6 C 92 24 125/85 H 92 1 Intake & Output: Intake & Output 05/30/24 05/31/24 06/01/24 06/02/24 23:59 23:59 23:59 23:59 Intake Total 1130 1370 1290 800 Output Total 4750 1900 1500 1250 Balance -3620 -530 -210 -450 - Lab Results Fish Bones: 06/02/24 06:58 06/02/24 06:58 Other Labs: Lab Results x24hrs 06/02/24 06/02/24 06/02/24 Range/Units 21:14 06:58 06:58 WBC (4.8-10.8) x10^3/uL RBC (4.20-5.40) 10^6/uL Hgb (12.0-16.0) g/dL Hct (37.0-47.0) % MCV (81.0-99.0) fL MCH (27.0-31.0) pg MCHC (32.0-36.0) g/dL RDW (12.0-15.0) % Plt Count (130-450) 10^3/uL MPV (7.9-10.8) fL Neut # (Auto) (1.5-6.6) 10^3/uL Lymph # (Auto) (1.5-3.5) 10^3/uL [place] # (Auto) (0.0-1.0) 10^3/uL Eos # (Auto) (0.0-0.7) 10^3/uL Baso # (Auto) (0.0-0.1) 10^3/uL Absolute Nucleated RBC x10^3/uL Nucleated RBC % /100WBC Manual Slide Review Platelet Estimate (NORMAL) Platelet Morphology (NORMAL) RBC Morph Micro Appear (NORMAL) VBG pH 7.426 H 7.423 H (7.31-7.41) VBG pCO2 51.2 H 51.7 H (41-51) mmHg VBG pO2 64.6 H 21.4 L (25-47) mmHg VBG HCO3 32.9 H 33.0 H (23-28) mmol/L VBG Total CO2 34.5 H 34.6 H (24-29) mmol/L VBG O2 Saturation 91.7 H 31.5 L (60-80) % VBG Base Excess 7.6 H 7.5 H (-2 - +2) mmol/L Sodium 141 (135-145) mmol/L Potassium 3.1 L (3.5-4.5) mmol/L Chloride 101 (101-111) mmol/L Carbon Dioxide 37 H (21-32) mmol/L Anion Gap 3.0 L (6-13) BUN 21 H (6-20) mg/dL Creatinine 0.5 L (0.6-1.3) mg/dL Estimated GFR (MDRD) 119 (>89) Glucose 94 (74-104) mg/dL Calcium 8.6 (8.5-10.3) mg/dL Phosphorus 3.1 (2.5-5.0) mg/dL Magnesium 2.0 (1.7-2.3) mg/dL Albumin 2.6 L (3.2-5.5) g/dL 06/02/24 Range/Units 06:58 WBC 8.2 (4.8-10.8) x10^3/uL RBC 3.24 L (4.20-5.40) 10^6/uL Hgb 9.1 L (12.0-16.0) g/dL Hct 31.8 L (37.0-47.0) % MCV 98.1 (81.0-99.0) fL MCH 28.1 (27.0-31.0) pg MCHC 28.6 L (32.0-36.0) g/dL RDW 23.6 H (12.0-15.0) % Plt Count 375 (130-450) 10^3/uL MPV 9.9 (7.9-10.8) fL Neut # (Auto) 6.9 H (1.5-6.6) 10^3/uL Lymph # (Auto) 0.6 L (1.5-3.5) 10^3/uL [place] # (Auto) 0.4 (0.0-1.0) 10^3/uL Eos # (Auto) 0.2 (0.0-0.7) 10^3/uL Baso # (Auto) 0.0 (0.0-0.1) 10^3/uL Absolute Nucleated RBC 0.00 x10^3/uL Nucleated RBC % 0.0 /100WBC Manual Slide Review Indicated Platelet Estimate NORMAL (130-450,000) (NORMAL) Platelet Morphology NORMAL APPEARANCE (NORMAL) RBC Morph Micro Appear 1+ HYPOCHROMASIA (NORMAL) VBG pH (7.31-7.41) VBG pCO2 (41-51) mmHg VBG pO2 (25-47) mmHg VBG HCO3 (23-28) mmol/L VBG Total CO2 (24-29) mmol/L VBG O2 Saturation (60-80) % VBG Base Excess (-2 - +2) mmol/L Sodium (135-145) mmol/L Potassium (3.5-4.5) mmol/L Chloride (101-111) mmol/L Carbon Dioxide (21-32) mmol/L Anion Gap (6-13) BUN (6-20) mg/dL Creatinine (0.6-1.3) mg/dL Estimated GFR (MDRD) (>89) Glucose (74-104) mg/dL Calcium (8.5-10.3) mg/dL Phosphorus (2.5-5.0) mg/dL Magnesium (1.7-2.3) mg/dL Albumin (3.2-5.5) g/dL Sepsis Event Note (H) - Evaluation Current Stage of Sepsis: Ruled out
[2024-06-02] MEDS ORDERED: SODIUM CHLORIDE FLUSH 0.9% 10 ML SYRINGE IVP PRN (21:42)
--- NOTE | 2024-06-02 22:01 | XRAY Report ---
PROCEDURE: Chest 1V INDICATIONS: Shortness of breath TECHNIQUE: One view of the chest was acquired. COMPARISON: 06/01/2024, 05/30/2024, 05/29/2024. FINDINGS: Surgical changes and devices: Bilateral shoulder arthroplasty hardware is seen. Left axillary clips in left chest wall clips can be seen. Lungs and pleura: Significant abnormal interstitial prominence can be seen, which is mildly worse on the prior examination. The lungs are less well aerated on the current study than on the prior. No pn eumothorax is seen. There is a suspected left-sided pleural effusion. Mediastinum: Mediastinal contours appear normal. Heart size is normal. Bones and chest wall: No suspicious bony lesions. Age-appropriate degenerative changes are seen. M ild levoconvex scoliotic curvature is seen. Overlying soft tissues appear unremarkable. IMPRESSION: Significant abnormal interstitial type infiltrates are seen, which are worse on the prior examination . Worsening pulmonary edema is suspected. The lungs are less well aerated on the current study than o n the prior. Suspected left-sided pleural effusion. Reviewed by: Konstantin Willams MD on 06/02/2024 9:00 PM RODO Approved by: Konstantin Willams MD on 06/02/2024 9:00 PM RODO Station ID: [id number]
[2024-06-02] MEDS: LORazepam 2 MG/ML VIAL IVP PRN (22:39)
[2024-06-03] MEDS: HALOPERIDOL 5 MG/ML VIAL IM PRN (05:15)
[2024-06-03] MEDS: SODIUM CHLORIDE FLUSH 0.9% 10 ML SYRINGE IVP SCH (05:16)
[2024-06-03 05:20] LABS: BASOPHILS # (AUTO) 0.1 10^3/uL (0.0-0.1); BASOPHILS % (AUTO) 0.6 %; EOSINOPHILS # (AUTO) 0.2 10^3/uL (0.0-0.7); EOSINOPHILS % (AUTO) 2.7 %; HCT - HEMATOCRIT 26.6 % (37.0-47.0); HGB - HEMOGLOBIN 7.7 g/dL (12.0-16.0); LYMPHOCYTES # (AUTO) 0.6 10^3/uL (1.5-3.5); LYMPHOCYTES % (AUTO) 7.6 %; MEAN CORPUSCULAR HEMOGLOBIN 28.4 pg (27.0-31.0); MEAN CORPUSCULAR HGB CONC 28.9 g/dL (32.0-36.0); MEAN CORPUSCULAR VOLUME 98.2 fL (81.0-99.0); MEAN PLATELET VOLUME 9.7 fL (7.9-10.8); MONOCYTES # (AUTO) 0.4 10^3/uL (0.0-1.0); MONOCYTES % (AUTO) 5.4 %; NEUTROPHILS # (AUTO) 6.8 10^3/uL (1.5-6.6); PLT - PLATELET COUNT 297 10^3/uL (130-450); RED BLOOD COUNT 2.71 10^6/uL (4.20-5.40); WHITE BLOOD COUNT 8.2 x10^3/uL (4.8-10.8)
[2024-06-03 05:38] LABS: ALBUMIN 2.4 g/dL (3.2-5.5); PHOSPHORUS 3.3 mg/dL (2.5-5.0)
[2024-06-03 06:02] LABS: CALCIUM 8.4 mg/dL (8.5-10.3); CREATININE 0.6 mg/dL (0.6-1.3); POTASSIUM 3.3 mmol/L (3.5-4.5)
[2024-06-03 06:03] LABS: CALCIUM, IONIZED 1.18 mmol/L (1.15-1.33); VBG PH 7.339 (7.31-7.41)
[2024-06-03 06:10] LABS: SLIDE REVIEW? Indicated
[2024-06-03 06:57] LABS: PLATELET ESTIMATE, MANUAL NORMAL (130-450,000) (NORMAL); PLATELET MORPHOLOGY NORMAL APPEARANCE (NORMAL)
[2024-06-03] MEDS: POTASSIUM CHLOR 10 MEQ/100 ML 10 MEQ/100 ML BAG IV SCH (06:58)
[2024-06-03] MEDS ORDERED: POTASSIUM CHLORIDE INJ 40 MEQ in SODIUM CHLORIDE 0.9% 500 ML IV ONE (07:41)
--- NOTE | 2024-06-03 07:42 | XRAY Report ---
PROCEDURE: Chest 1V INDICATIONS: worsening respiratory failure TECHNIQUE: One view of the chest was acquired. COMPARISON: 06/02/2024, 06/01/2024. FINDINGS: Surgical changes and devices: Status post bilateral shoulder arthroplasties Lungs and pleura: No pneumothorax. Small left pleural effusion. Stable appearance of diffuse interst itial prominence in diffuse ill-defined opacities of the bilateral hemithoraces. No new focal consoli dations. Mediastinum: Mediastinal contours appear normal. Heart size is normal. Bones and chest wall: No suspicious bony lesions. Overlying soft tissues appear unremarkable. IMPRESSION: Persistent extensive diffuse interstitial prominence and diffuse ill-defined opacities of the bilater al hemithoraces consistent with pulmonary edema. Concurrent infectious or inflammatory process not ex cluded clinically appropriate. No new focal consolidation seen. Reviewed by: Narinder Swift MD on 06/03/2024 7:40 AM PDT Approved by: Narinder Swift MD on 06/03/2024 7:40 AM PDT Station ID: [id number]
[2024-06-03 07:49] LABS: VBG HCO3 26.3 mmol/L (23-28); VBG PCO2 47.5 mmHg (41-51); VBG PH 7.361 (7.31-7.41); VBG PO2 32.7 mmHg (25-47)
[2024-06-03 07:50] LABS: VBG BASE EXCESS 0.6 mmol/L (-2 - +2); VBG TOTAL CO2 27.8 mmol/L (24-29)
[2024-06-03] MEDS ORDERED: METOPROLOL 5 MG/5 ML VIAL IVP PRN (07:57)
[2024-06-03] MEDS ORDERED: HYDROmorphone 0.5 MG/0.5 ML SYRINGE IVP PRN (07:58)
[2024-06-03] MEDS ORDERED: HALOPERIDOL 5 MG/ML VIAL IVP PRN ×3 (07:59→11:21)
[2024-06-03] MEDS ORDERED: FUROSEMIDE 40 MG/4 ML VIAL IVP SCH (09:00)
[2024-06-03] MEDS: ENOXAPARIN 60 MG/0.6 ML SYRINGE SUBQ SCH (09:39)
[2024-06-03] MEDS: FUROSEMIDE 20 MG/2 ML VIAL IVP SCH (09:39)
[2024-06-03] MEDS ORDERED: LORazepam 2 MG/ML VIAL IVP PRN (11:21)
[2024-06-03] MEDS ORDERED: GLYCOPYRROLATE 1 MG/5 ML VIAL SUBQ PRN (11:21)
--- NOTE | 2024-06-03 12:20 | PROVIDER PROGRESS NOTE ---
Assessment/Plan - Problem List (1) Acute respiratory failure with hypoxia Assessment/Plan: Bilevel positive airway pressure discontinued. Comfort care initiated. (2) Sacral decubitus ulcer, stage III Impression: Continue local wound care. Comfort care initiated (3) Acute on chronic diastolic (congestive) heart failure Impression: Diuretics have been discontinued. Comfort care orders initiated (4) SLE (systemic lupus erythematosus) Impression: Plaquenil discontinued. (5) Severe protein-calorie malnutrition Impression: The patient has significant muscle wasting and fat loss throughout her entire body. She has nutrition intake of less than 50% of recommended intake that has been ongoing for the past several months. She has had a 76% weight loss in the past year. It is reported that she is lost approximately 70 pounds. She also has a stage III decubitus ulcer. She is now bedbound with significantly reduced functional capacity. Continue to try to maximize her functional status. She was having quite a bit of anxiety regarding eating because she had developed dysphagia. (6) Permanent atrial fibrillation Impression: Apixaban discontinued. Comfort care orders initiated. (7) Hypertension Impression: Carvedilol discontinued. Comfort care orders initiated. (8) Chronic prescription opiate use Impression: Comfort care orders initiated. Patient to receive morphine for pain and dyspnea. (9) Anxiety Impression: Lorazepam as needed for anxiety. (10) Elevated liver function tests Impression: Of undetermined significance. Possibly due to passive congestion of the liver. (11) Moderate major depression Impression: Sertraline discontinued. Comfort care orders initiated. (12) Anemia Impression: Likely related to chronic disease. Her hemoglobin is stable (13) Hypokalemia Impression: All supplements and been discontinued because patient is on comfort care (14) Hypomagnesemia Impression: All supplements of discontinued because patient is on comfort care. (15) Sarcopenia Impression: Significant muscle wasting and fat loss throughout her body. Profoundly weak and bedbound. Unable to ambulate. Comfort care initiated (16) Pulmonary Hypertension Impression: Echocardiogram performed on May 28, 2024 revealed an ejection fraction of 50- 55%. Diastolic function could not be evaluated during the study. The RSVP is 71 mm Hg.Patient most likely has severe chronic pulmonary hypertension.She has been not been responding to high-dose diuretics and an increase in diuretics has resulted in a significant increase of her serum bicarbonate and this resulted in hypercarbic respiratory failure. Comfort care orders have been initiated. (17) Goals of care, counseling/discussion Conclusion/Plan: Gaye Vallecillo is a 78 year old woman admitted on May 24, 2024 with a stage III decubitus ulcer. Her reports she has lost approximately 70 pounds over the last 18 months. Other problems include bedbound status due to severe right hip pain and weakness from her poor protein calorie malnutrion. She also reports difficulty swallowing. Patient also complained of significant shortness of breath and has been aggressively diuresed during this admission. Diuresis resulted in increase in her serum bicarbonate and diuresis had to be done in a more conservative rate. The patient required several doses of acetazolamide to correct her elevated serum bicarbonate. With the elevation of her serum bicarbonate the patient also developed hypercarbic respiratory failure that is also resolved with the resolution of her elevated serum bicarbonate. Despite aggressive measures she continues to make no progress. On the evening of June 02, 2024 the patient developed altered mental status a nd was transferred to the intensive care unit and placed on bilevel positive airway pressure therapy. This morning bilevel positive airway pressure therapy was discontinued because it was felt that it was not benefiting the patient. It is highly likely she has severe pulmonary hypertension. I informed the patient and her that she is not a candidate for further workup or treatment for her pulmonary hypertension given her significant debility and poor protein calorie malnutrition. Further workup would most likely result in harm and more discomfort for Gaye. A meeting was held with both the patient and her and I informed them that all treatment options have basically been exhausted and recommended initiation of comfort care measures. After some discussion, both the patient and the have agreed to initiate comfort care measures. CODE STATUS has been changed to DO NOT RESUSCITATE. All orders for treatment of her underlying problems have been discontinued and comfort care order set has been initiated. - Lab Result Fish Bone Diagrams: 06/03/24 08:16 06/03/24 04:25 - Additional Planning My Orders: My Active Orders 06/03/24 11:21 Comfort Care [RC] QSHIFT Oral Care - Nursing [RC] BID Oxygen Therapy [RC] .PRN Turn and Reposition [RC] PRN Warming Unit [RC] PRN Glycopyrrolate [Robinul] 0.2 mg SUBQ Q4H PRN Haloperidol Inj [Haldol Inj] 0.5 mg IVP Q2H PRN Haloperidol Inj [Haldol Inj] 0.5 mg IVP Q6H PRN LORazepam INJ [Ativan Inj (Vial)] 1 mg IVP Q6H PRN Metoclopramide Inj [Reglan Inj] 10 mg IVP QID PRN Morphine Inj (Carpuject) [Morphine (Carpuject)] 2 mg IVP Q2HR PRN Subjective - Subjective Patient Reports: Other (Patient is alert and oriented to person time place and situation. She continues to be short of breath and is only able to say a few words before taking a breath. She denies chest pain and abdominal pain. She has no other complaints at this time.) Objective Vital Signs: Vital Signs - 24 hr 06/02/24 06/02/24 06/02/24 16:26 20:35 22:08 Temperature 36.6 C 36.8 C Heart Rate Heart Rate [ 92 83 80 Brachial] Respiratory 24 24 22 Rate Blood Pressure 125/85 H 98/66 104/73 [Right Brachial artery] O2 Saturation 92 99 97 If not protocol 1 2 2 : Oxygen Flow, liters/minute 06/02/24 06/02/24 06/03/24 23:00 23:55 00:00 Temperature Heart Rate 77 Heart Rate [ 84 82 Brachial] Respiratory 14 18 Rate Blood Pressure 97/69 113/84 H [Right Brachial artery] O2 Saturation 100 100 If not protocol 2 6 : Oxygen Flow, liters/minute 06/03/24 06/03/24 06/03/24 01:00 02:17 03:57 Temperature Heart Rate 72 72 Heart Rate [ 79 Brachial] Respiratory 18 Rate Blood Pressure 110/75 [Right Brachial artery] O2 Saturation 100 If not protocol 5 5 : Oxygen Flow, liters/minute 06/03/24 06/03/24 06/03/24 05:00 05:27 06:00 Temperature 36.8 C Heart Rate 91 Heart Rate [ 75 79 Brachial] Respiratory 16 17 Rate Blood Pressure 114/82 H 121/76 [Right Brachial artery] O2 Saturation 100 100 If not protocol 5 : Oxygen Flow, liters/minute 06/03/24 06/03/24 06/03/24 07:00 07:17 08:00 Temperature 36.7 C Heart Rate 80 Heart Rate [ 77 83 Brachial] Respiratory 15 19 Rate Blood Pressure 105/72 123/89 H [Right Brachial artery] O2 Saturation 100 100 If not protocol 5 : Oxygen Flow, liters/minute 06/03/24 06/03/24 06/03/24 09:00 10:00 11:00 Temperature Heart Rate Heart Rate [ 89 95 92 Brachial] Respiratory 26 H 28 H 28 H Rate Blood Pressure 127/84 H 120/95 H 130/78 [Right Brachial artery] O2 Saturation 100 100 100 If not protocol 3 2 2 : Oxygen Flow, liters/minute 06/03/24 12:00 Temperature Heart Rate Heart Rate [ 93 Brachial] Respiratory 27 H Rate Blood Pressure 113/82 H [Right Brachial artery] O2 Saturation 99 If not protocol 2 : Oxygen Flow, liters/minute Oxygen O2 Source Nasal cannula I&O (Last 24 Hrs): Intake and Output Totals x24h 06/01/24 06/02/24 06/03/24 23:59 23:59 23:59 Intake Total 1290 800 200 Output Total 1500 1250 925 Balance -210 -450 -725 General: Alert, Moderate distress HEENT: Atraumatic Neck: No thyromegaly Neuro: Alert, Non Focal Cardiovascular: Other (Positive S1-S2 no extra heart sounds.) Respiratory: Other (Fair air exchange in all lung mackey. No wheezing positive bibasilar crackles.) Abdomen: Other (Soft nontender nondistended positive bowel sounds) Extremities: No cyanosis Skin: No rashes - Results Results: Laboratory Results WBC 8.2 x10^3/uL (4.8-10.8) 06/03/24 04:25 RBC 2.71 10^6/uL (4.20-5.40) L 06/03/24 04:25 Hgb 8.2 g/dL (12.0-16.0) L 06/03/24 08:16 Hct 26.6 % (37.0-47.0) L 06/03/24 04:25 MCV 98.2 fL (81.0-99.0) 06/03/24 04:25 MCH 28.4 pg (27.0-31.0) 06/03/24 04:25 MCHC 28.9 g/dL (32.0-36.0) L 06/03/24 04:25 RDW 23.0 % (12.0-15.0) H 06/03/24 04:25 Plt Count 297 10^3/uL (130-450) 06/03/24 04:25 MPV 9.7 fL (7.9-10.8) 06/03/24 04:25 Neut # (Auto) 6.8 10^3/uL (1.5-6.6) H 06/03/24 04:25 Lymph # (Auto) 0.6 10^3/uL (1.5-3.5) L 06/03/24 04:25 Mellette # (Auto) 0.4 10^3/uL (0.0-1.0) 06/03/24 04:25 Eos # (Auto) 0.2 10^3/uL (0.0-0.7) 06/03/24 04:25 Baso # (Auto) 0.1 10^3/uL (0.0-0.1) 06/03/24 04:25 Absolute Nucleated RBC 0.00 x10^3/uL 06/03/24 04:25 Nucleated RBC % 0.0 /100WBC 06/03/24 04:25 Manual Slide Review Indicated 06/03/24 04:25 WBC Morphology NORMAL APPEARANCE (NORMAL) 06/01/24 05:05 Platelet Estimate NORMAL (130-450,000) (NORMAL) 06/03/24 04:25 Platelet Morphology NORMAL APPEARANCE (NORMAL) 06/03/24 04:25 RBC Morph Micro Appear 3+ ANISOCYTOSIS (NORMAL) 1+ HYPOCHROMASIA (NORMAL) 06/02/24 06:58 RBC Morph Micro Appear 3+ ANISOCYTOSIS (NORMAL) 1+ HYPOCHROMASIA (NORMAL) 06/02/24 06:58 ESR 32 mm/Hr (0-30) H 05/26/24 07:31 PT 18.1 secs (9.9-12.6) H 05/24/24 18:51 INR 1.7 (0.8-1.2) H 05/24/24 18:51 APTT 31.5 secs (24.9-33.3) 05/24/24 18:51 VBG pH 7.361 (7.31-7.41) 06/03/24 07:40 VBG pCO2 47.5 mmHg (41-51) 06/03/24 07:40 VBG pO2 32.7 mmHg (25-47) 06/03/24 07:40 VBG HCO3 26.3 mmol/L (23-28) 06/03/24 07:40 VBG Total CO2 27.8 mmol/L (24-29) 06/03/24 07:40 VBG O2 Saturation 59.0 % (60-80) L 06/03/24 07:40 VBG Base Excess 0.6 mmol/L (-2 - +2) 06/03/24 07:40 Ionized Calcium 1.18 mmol/L (1.15-1.33) 06/03/24 04:25 Sodium 141 mmol/L (135-145) 06/03/24 04:25 Potassium 3.3 mmol/L (3.5-4.5) L 06/03/24 04:25 Chloride 105 mmol/L (101-111) 06/03/24 04:25 Carbon Dioxide 34 mmol/L (21-32) H 06/03/24 04:25 Anion Gap 2.0 (6-13) L 06/03/24 04:25 BUN 24 mg/dL (6-20) H 06/03/24 04:25 Creatinine 0.6 mg/dL (0.6-1.3) 06/03/24 04:25 Estimated GFR (MDRD) 96 (>89) 06/03/24 04:25 Glucose 90 mg/dL (74-104) 06/03/24 04:25 Lactic Acid 1.4 mmol/L (0.5-2.2) 05/24/24 20:58 Calcium 8.4 mg/dL (8.5-10.3) L 06/03/24 04:25 Phosphorus 3.3 mg/dL (2.5-5.0) 06/03/24 04:25 Magnesium 2.0 mg/dL (1.7-2.3) 06/03/24 04:25 Total Bilirubin 1.1 mg/dL (0.2-1.0) H 05/30/24 04:45 Direct Bilirubin 0.48 mg/dL (0.03-0.18) H 05/30/24 04:45 AST 21 IU/L (10-42) 05/30/24 04:45 ALT 21 IU/L (10-60) 05/30/24 04:45 Alkaline Phosphatase 95 IU/L (42-121) 05/30/24 04:45 C-Reactive Protein 12.5 mg/dL (<0.5) H 05/26/24 07:31 B-Natriuretic Peptide 1508 pg/mL (5-100) H 06/03/24 04:20 Total Protein 4.7 g/dL (6.4-8.9) L 05/30/24 04:45 Albumin 2.4 g/dL (3.2-5.5) L 06/03/24 04:25 Globulin 2.2 g/dL (2.1-4.2) 05/30/24 04:45 Albumin/Globulin Ratio 1.5 (1.0-2.2) 05/24/24 18:51 Procalcitonin Immunoas 0.16 ng/mL (<0.5) 05/26/24 07:31 Nasal Screen MRSA (PCR) NEGATIVE (NEGATIVE) 06/02/24 22:00 Last Dose Date 05/28/24 05/28/24 22:19 Last Dose Time 2200 05/28/24 22:19 Vancomycin Trough 15.1 ug/mL 05/28/24 22:19 SARS-CoV-2 (PCR) NOT DETECTED 05/31/24 17:35 - Procedures Procedures: Procedures EXCISION OF STOMACH, ENDO, DIAGN (07/17/23) EXCISION OF STOMACH, PYLORUS, ENDO, DIAGN (10/21/22) TRANSFUSE NONAUT RED BLOOD CELLS IN CENTRAL VEIN, PERC (10/21/22) TRANSFUSE NONAUT RED BLOOD CELLS IN PERIPH VEIN, PERC (07/17/23) Sepsis Event Note (H) - Evaluation Current Stage of Sepsis: Ruled out
[2024-06-03] MEDS: MORPHINE 2 MG/ML CARPUJECT IVP PRN ×2 (14:31→15:46)
[2024-06-03] MEDS: HYDROmorphone 1 MG/ML CARPUJECT IVP PRN (15:12)
--- NOTE | 2024-06-04 11:55 | PROVIDER PROGRESS NOTE ---
Subjective - Prog Note Date Prog Note Date: 06/04/24 Prog Note Time: 11:55 - Subjective Subjective: The patient has progressed overnight. She no longer is responsive. She is having spells of apnea. She was not arousable. Her review of systems could not be obtained. I spent quite some time discussing the plan of care with the patient's at the bedside. All of his questions were answered Current Medications - Current Medications Current Medications: Active Medications Generic Name Dose Route Start Last Admin Trade Name Freq PRN Reason Stop Dose Admin Glycopyrrolate 0.2 mg 06/03/24 11:21 Glycopyrrolate 1 Mg/5 Ml Vial SUBQ Q4H PRN Excessive secretions Haloperidol 0.5 mg 06/03/24 11:21 Haloperidol 5 Mg/Ml Vial IVP Q6H PRN Nausea / Vomiting Haloperidol 0.5 mg 06/03/24 11:21 Haloperidol 5 Mg/Ml Vial IVP Q2H PRN Agitation Hydromorphone HCl 1 mg 06/03/24 15:01 06/04/24 11:39 Hydromorphone 1 Mg/Ml Carpuject IVP 1 mg Q2HR PRN Administration Severe Pain (Level 7-10) Lorazepam 1 mg 06/03/24 11:21 Lorazepam 2 Mg/Ml Vial IVP Q6H PRN Anxiety/Agitation Metoclopramide HCl 10 mg 06/03/24 11:21 Metoclopramide 10 Mg/2 Ml Vial IVP QID PRN Nausea / Vomiting Morphine Sulfate 4 mg 06/03/24 15:03 06/04/24 10:23 Morphine 2 Mg/Ml Carpuject IVP 4 mg Q1H PRN Administration Severe Pain (Level 7-10)/ SOA Hydroxychloroquine [Plaquenil] 300 mg PO QPM 04/10/17 Sertraline [Zoloft] 100 mg PO QPM 04/10/17 Atorvastatin [Lipitor] 10 mg PO HS 10/20/22 Cholecalciferol [Vitamin D3] 5,000 unit PO DAILY 10/20/22 Potassium Chloride 30 meq PO QDBREAKFAST 07/18/23 Apixaban [Eliquis] 1 tab PO BID 05/26/24 Objective - Vital Signs/Intake & Output Reviewed Vital Signs: Yes Intake & Output: Intake & Output 06/01/24 06/02/24 06/03/2406/04/24 23:59 23:59 23:59 23:59 Intake Total 1290 800 500 Output Total 1500 1250 1180 Balance -210 -918 -680 - Objective General Appearance: positive: Other (She is having spells of apnea. No longer responsive) Respiratory: positive: Other (Scattered course rhonchi bilaterally) Cardiovascular: positive: Other (Irregular) Abdomen: positive: Other (I am not hearing much in the way of bowel sounds. Her abdomen appears to be non-) Skin: positive: Other (She is developing some mottling in her toes bilaterally. Both feet are quite cool.) Extremities: positive: Other (Muscle wasting and fat loss throughout her whole body especially in her extremity) Neurologic/Psychiatric: positive: Other (Unable to be assessed) - Lab Results Fish Bones: 06/03/24 08:16 06/03/24 04:25 Sepsis Event Note (H) - Evaluation Current Stage of Sepsis: Ruled out Assessment/Plan - Problem List (1) Acute respiratory failure with hypoxia Impression: Oxygen support at 2 L via nasal cannula. No further workup. Respiratory failure is due to decompensated heart failure and pulmonary hypertension (2) Sacral decubitus ulcer, stage III Impression: Continue local wound care (3) Acute diastolic (congestive) heart failure Impression: No further treatment. She is on comfort measures (4) SLE (systemic lupus erythematosus) Impression: No further treatment (5) Severe protein-calorie malnutrition Impression: The patient is actively dying. No further diet (6) Permanent atrial fibrillation Impression: No further treatment (7) Hypertension Impression: No further treatment (8) Chronic prescription opiate use Impression: No further treatment. She has IV Dilaudid and IV morphine available as needed (9) Anxiety Impression: She has anxiolytics available as needed (10) Elevated liver function tests Impression: No further monitoring. This was likely due to passive congestion of the liver due to her decompensated heart failure (11) Moderate major depression Impression: No further treatment (12) Anemia Impression: No further monitoring (13) Hypokalemia Impression: As above (14) Hypomagnesemia Impression: As above (15) Sarcopenia Impression: The patient is actively dying. No further PT or OT (16) Comfort measures only status Impression: The patient has been transition to comfort measures. All furthe interventions have been stopped. She has Roxanol and IV morphine and IV Dilaudid available for pain and dyspnea. She has medications in place for anxiety or agitation. She also has medications in place for secretions. At this point the patient does not have excessive secretions. She appears to be quite comfortable. She has significantly progressed from yesterday and appears to have transitioned. She is actively dying and I would expect the patient to pass within the next 24 to 48 hours Time spent: 35 minutes
--- NOTE | 2024-06-05 13:47 | PROVIDER PROGRESS NOTE ---
Subjective - Prog Note Date Prog Note Date: 06/05/24 Prog Note Time: 13:45 - Subjective Subjective: The patient remains on comfort measures. She has woken up a couple of times and interacted with her but most of the time she is not responsive. When I went to see her she was resting comfortably. She was not having any pain or dyspnea. She appeared to be quite comfortable. I spent quite some time discussing the plan of care with the patient's at the bedside and all of his questions were answered. Current Medications - Current Medications Current Medications: Active Medications Generic Name Dose Route Start Last Admin Trade Name Freq PRN Reason Stop Dose Admin Glycopyrrolate 0.2 mg 06/03/24 11:21 Glycopyrrolate 1 Mg/5 Ml Vial SUBQ Q4H PRN Excessive secretions Haloperidol 0.5 mg 06/03/24 11:21 Haloperidol 5 Mg/Ml Vial IVP Q6H PRN Nausea / Vomiting Haloperidol 0.5 mg 06/03/24 11:21 Haloperidol 5 Mg/Ml Vial IVP Q2H PRN Agitation Hydromorphone HCl 1 mg 06/03/24 15:01 06/05/24 10:52 Hydromorphone 1 Mg/Ml Carpuject IVP 1 mg Q2HR PRN Administration Severe Pain (Level 7-10) Lorazepam 1 mg 06/03/24 11:21 Lorazepam 2 Mg/Ml Vial IVP Q6H PRN Anxiety/Agitation Metoclopramide HCl 10 mg 06/03/24 11:21 Metoclopramide 10 Mg/2 Ml Vial IVP QID PRN Nausea / Vomiting Morphine Sulfate 4 mg 06/03/24 15:03 06/04/24 10:23 Morphine 2 Mg/Ml Carpuject IVP 4 mg Q1H PRN Administration Severe Pain (Level 7-10)/ SOA Hydroxychloroquine [Plaquenil] 300 mg PO QPM 04/10/17 Sertraline [Zoloft] 100 mg PO QPM 04/10/17 Atorvastatin [Lipitor] 10 mg PO HS 10/20/22 Cholecalciferol [Vitamin D3] 5,000 unit PO DAILY 10/20/22 Potassium Chloride 30 meq PO QDBREAKFAST 07/18/23 Apixaban [Eliquis] 1 tab PO BID 05/26/24 Objective - Vital Signs/Intake & Output Reviewed Vital Signs: Yes Vital Signs: Vital Signs x48h Temp Pulse Resp BP Pulse Ox O2 Flow Rate 06/05/24 08:38 36.4 C L 113 H 16 123/80 93 2 Intake & Output: Intake & Output 06/02/24 06/03/24 06/04/24 06/05/24 23:59 23:59 23:59 23:59 Intake Total 800 500 120 Output Total 1250 1180 425 Balance -450 -680 -425 120 - Objective General Appearance: positive: Other (The patient was unresponsive this at the time of my visit. Respirations are quite shallow and he she was having some mild spells of apnea) Eyes Bilateral: positive: Normal inspection ENT: positive: ENT inspection nml Neck: positive: Nml inspection Respiratory: positive: Other (The patient has some scattered coarse breath sounds anteriorly) Cardiovascular: positive: Irregularly irregular Abdomen: positive: Other (I am not hearing much in the way of bowel sounds. Abdomen appears to be nontender) Extremities: positive: Other (Significant muscle wasting and fat loss throughout all 4 extremities. The patient has some mottling in her toes. Both of her feet are quite cool to the touch) Neurologic/Psychiatric: positive: Other (At the time of my visit I could not get her to her rest) - Lab Results Fish Bones: 06/03/24 08:16 06/03/24 04:25 Sepsis Event Note (H) - Evaluation Current Stage of Sepsis: Ruled out Assessment/Plan - Problem List (1) Acute respiratory failure with hypoxia Impression: Secondary to decompensated heart failure. The patient's would like her to be kept on low-dose oxygen as a comfort measure (2) Sacral decubitus ulcer, stage III Impression: Continue local wound care (3) Acute diastolic (congestive) heart failure Impression: No further diuresis. (4) SLE (systemic lupus erythematosus) Impression: No further treatment (5) Severe protein-calorie malnutrition Impression: If the patient should wake up she could have diet as tolerated. She was having severe dysphagia. She is profoundly malnourished (6) Permanent atrial fibrillation Impression: No further treatment (7) Hypertension Impression: No further treatment (8) Chronic prescription opiate use Impression: She has IV Dilaudid and IV morphine available as needed (10) Elevated liver function tests Impression: As above (11) Moderate major depression Impression: As above (12) Anemia Impression: No further labs (13) Hypokalemia Impression: As above (14) Hypomagnesemia Impression: As above (15) Sarcopenia Impression: The patient is on comfort measures (16) Comfort measures only status Impression: Overall the patient appears to be comfortable. She is still occasionally waking up at times and speaking briefly to her . At the time of my visit she was unresponsive and appears to be actively dying. She has IV morphine and IV Ativan available as needed. Appropriate medications in place for agitation or s ecretions. The patient's would like for her to pass here in the hospital. He definitely does not want to take her home with home hospice. Will see how she progresses over the next 24 hours and make further decisions at that time Time spent: 35 minutes
--- NOTE | 2024-06-06 09:02 | PROVIDER PROGRESS NOTE ---
Subjective - Prog Note Date Prog Note Date: 06/06/24 Prog Note Time: 09:00 - Subjective Subjective: The patient has remained on comfort measures. Overnight the nursing staff stated that her oxygen saturations dropped significantly her heart rate became significantly irregular and they thought she was going to pass. However this morning the patient is awake and alert. She is talking and is largely oriented. She is in good spirits and enjoying a good talk with her . is hopeful that she is improving. Will see how she does over the course of the day but I suspect this is a rally before she continues to decline. Current Medications - Current Medications Current Medications: Active Medications Generic Name Dose Route Start Last Admin Trade Name Freq PRN Reason Stop Dose Admin Glycopyrrolate 0.2 mg 06/03/24 11:21 Glycopyrrolate 1 Mg/5 Ml Vial SUBQ Q4H PRN Excessive secretions Haloperidol 0.5 mg 06/03/24 11:21 Haloperidol 5 Mg/Ml Vial IVP Q6H PRN Nausea / Vomiting Haloperidol 0.5 mg 06/03/24 11:21 Haloperidol 5 Mg/Ml Vial IVP Q2H PRN Agitation Hydromorphone HCl 1 mg 06/03/24 15:01 06/06/24 06:34 Hydromorphone 1 Mg/Ml Carpuject IVP 1 mg Q2HR PRN Administration Severe Pain (Level 7-10) Lorazepam 1 mg 06/03/24 11:21 Lorazepam 2 Mg/Ml Vial IVP Q6H PRN Anxiety/Agitation Metoclopramide HCl 10 mg 06/03/24 11:21 Metoclopramide 10 Mg/2 Ml Vial IVP QID PRN Nausea / Vomiting Morphine Sulfate 4 mg 06/03/24 15:03 06/06/24 08:52 Morphine 2 Mg/Ml Carpuject IVP 4 mg Q1H PRN Administration Severe Pain (Level 7-10)/ SOA Hydroxychloroquine [Plaquenil] 300 mg PO QPM 04/10/17 Sertraline [Zoloft] 100 mg PO QPM 04/10/17 Atorvastatin [Lipitor] 10 mg PO HS 10/20/22 Cholecalciferol [Vitamin D3] 5,000 unit PO DAILY 10/20/22 Potassium Chloride 30 meq PO QDBREAKFAST 07/18/23 Apixaban [Eliquis] 1 tab PO BID 05/26/24 Objective - Vital Signs/Intake & Output Reviewed Vital Signs: Yes Vital Signs: Vital Signs x48h Temp Pulse Resp BP Pulse Ox O2 Flow Rate 06/06/24 08:31 36.6 C 118 H 24 141/91 H 99 2 Intake & Output: Intake & Output 06/03/24 06/04/24 06/05/24 06/06/24 23:59 23:59 23:59 23:59 Intake Total 500 120 Output Total 1180 425 300 600 Balance -680 -425 -180 -600 - Objective General Appearance: positive: No acute distress, Other Eyes Bilateral: positive: Normal inspection ENT: positive: Dry mucous membranes Respiratory: positive: Chest non-tender, No respiratory distress, Other (She has crackles in the lower bases bilaterally) Cardiovascular: positive: Regular rate & rhythm, No murmur, No gallop. negative: Friction rub Abdomen: positive: Non-tender, No organomegaly, Nml bowel sounds, No distention Skin: positive: Color nml, No rash, Warm, Dry Extremities: positive: Non-tender, Full ROM Neurologic/Psychiatric: positive: Oriented x3, CN's nml (2-12) - Lab Results Fish Bones: 06/03/24 08:16 06/03/24 04:25 ABX Reporting Has patient been on IV antibiotics over the past 48 hours?: No Sepsis Event Note (H) - Evaluation Current Stage of Sepsis: Ruled out Assessment/Plan - Problem List (1) Acute respiratory failure with hypoxia Impression: Continue oxygen support as needed (2) Sacral decubitus ulcer, stage III Impression: Continue local wound care (3) Acute diastolic (congestive) heart failure Impression: No further treatment (4) SLE (systemic lupus erythematosus) Impression: No further treatment (5) Severe protein-calorie malnutrition Impression: Profoundly malnourished. Diet as tolerated (6) Permanent atrial fibrillation Impression: No further treatment (7) Hypertension Impression: No further treatment (8) Chronic prescription opiate use Impression: She has IV Dilaudid and IV morphine available as needed (9) Anxiety Impression: She has IV Ativan available as needed (10) Elevated liver function tests Impression: No further labs (11) Moderate major depression Impression: No further treatment (12) Anemia Impression: Stable (13) Hypokalemia Impression: No further labs (14) Hypomagnesemia Impression: No further labs (15) Sarcopenia Impression: She is on comfort measures (16) Comfort measures only status Impression: The patient remains on comfort measures. She is quite alert and awake this morning but I believe this is the rally before she goes downhill. She almost passed last night. Will continue to monitor her today. She has appropriate medications in place for pain, dyspnea, anxiety and secretions Time spent: 35 minutes
--- NOTE | 2024-06-07 11:18 | PROVIDER PROGRESS NOTE ---
Subjective - Prog Note Date Prog Note Date: 06/07/24 Prog Note Time: 11:20 - Subjective Pt reports feeling: No change Subjective: When I saw the patient today she was totally unresponsive. I could not get her to arouse. However nursing staff reports that she woke up a little earlier and took a bite or 2 of pudding. She is slow to progress but clearly is actively dying. I spoke at length to the patient's at the bedside. He would like to talk to a textile machinery sales representative from home hospice to see if he feels like he could manage it at home. I have consulted the social workers to help get this set up. He feels that she is comfortable. She is taking as needed doses of morphine or Dilaudid but not on a regular basis. The patient is not responsive. Review of systems could not be obtained Current Medications - Current Medications Current Medications: Active Medications Generic Name Dose Route Start Last Admin Trade Name Freq PRN Reason Stop Dose Admin Glycopyrrolate 0.2 mg 06/03/24 11:21 Glycopyrrolate 1 Mg/5 Ml Vial SUBQ Q4H PRN Excessive secretions Haloperidol 0.5 mg 06/03/24 11:21 Haloperidol 5 Mg/Ml Vial IVP Q6H PRN Nausea / Vomiting Haloperidol 0.5 mg 06/03/24 11:21 Haloperidol 5 Mg/Ml Vial IVP Q2H PRN Agitation Hydromorphone HCl 1 mg 06/03/24 15:01 06/07/24 08:26 Hydromorphone 1 Mg/Ml Carpuject IVP 1 mg Q2HR PRN Administration Severe Pain (Level 7-10) Lorazepam 1 mg 06/03/24 11:21 Lorazepam 2 Mg/Ml Vial IVP Q6H PRN Anxiety/Agitation Metoclopramide HCl 10 mg 06/03/24 11:21 Metoclopramide 10 Mg/2 Ml Vial IVP QID PRN Nausea / Vomiting Morphine Sulfate 4 mg 06/03/24 15:03 06/07/24 06:46 Morphine 2 Mg/Ml Carpuject IVP 4 mg Q1H PRN Administration Severe Pain (Level 7-10)/ SOA Hydroxychloroquine [Plaquenil] 300 mg PO QPM 04/10/17 Sertraline [Zoloft] 100 mg PO QPM 04/10/17 Atorvastatin [Lipitor] 10 mg PO HS 10/20/22 Cholecalciferol [Vitamin D3] 5,000 unit PO DAILY 10/20/22 Potassium Chloride 30 meq PO QDBREAKFAST 07/18/23 Apixaban [Eliquis] 1 tab PO BID 05/26/24 Objective - Vital Signs/Intake & Output Reviewed Vital Signs: Yes Intake & Output: Intake & Output 06/04/24 06/05/24 06/06/24 06/07/24 23:59 23:59 23:59 23:59 Intake Total 120 500 Output Total 425 300 800 Balance -425 -180 -300 - Objective General Appearance: positive: Other Eyes Bilateral: positive: Other ENT: positive: Other (The patient is developing the O sign) Neck: positive: Nml inspection Respiratory: positive: Other (She has scattered coarse rhonchi anteriorly) Cardiovascular: positive: Tachycardia (Somewhat tachycardic with a slightly irregular rhythm) Abdomen: positive: Other (Extremely thin. I am not hearing much in the way of bowel sounds) Skin: positive: Color nml, No rash, Warm, Other Extremities: positive: Other (Both of her lower extremities are quite cool and cold to the touch. However she has not developed any mottling significant muscle wasting and fat loss throughout her body especially in all 4 extremities) Neurologic/Psychiatric: positive: Other (Unable to assess) - Lab Results Fish Bones: 06/03/24 08:16 06/03/24 04:25 Sepsis Event Note (H) - Evaluation Current Stage of Sepsis: Ruled out Assessment/Plan - Problem List (1) Acute respiratory failure with hypoxia Impression: The would like to continue oxygen support at 2 L (2) Sacral decubitus ulcer, stage III Impression: Continue local wound care (3) Acute diastolic (congestive) heart failure Impression: . (4) SLE (systemic lupus erythematosus) Impression: . (5) Severe protein-calorie malnutrition Impression: Diet as tolerated. She occasionally wakes up and will take a spoonful or 2 of pudding (6) Permanent atrial fibrillation Impression: . (7) Hypertension Impression: . (8) Chronic prescription opiate use Impression: . (9) Anxiety Impression: . (10) Elevated liver function tests Impression: . (11) Moderate major depression Impression: . (12) Anemia Impression: . (13) Hypokalemia Impression: . (14) Hypomagnesemia Impression: . (15) Sarcopenia Impression: . (16) Comfort measures only status Impression: The patient remains on comfort measures. Overall she is slow to progress but is clearly actively dying. The patient's would like to have an informational visit from hospice. At this point all of her medical diagnosis is above her not actively being treated. She can have diet as tolerated. She has appropriate medications in place for pain, dyspnea and secretions. Time spent: 45 minutes This included long discussion with the patient's regarding goals of care
[2024-06-07] MEDS: METOCLOPRAMIDE 10 MG/2 ML VIAL IVP PRN (20:55)
--- NOTE | 2024-06-08 14:23 | Discharge Plan ---
Discharge Plan Problem Reviewed?: Yes Disposition: 50 Hospice/Home DC/Xfer Condition: Poor Prescriptions: LORazepam [Ativan] 0.5 mg PO Q6H PRN #10 tablet PRN Reason: Anxiety HYDROmorphone [Dilaudid] 2 mg PO Q4H #30 tablet Bisacodyl Supp [Dulcolax Supp] 10 mg [place] DAILY PRN #3 supp PRN Reason: Constipation Morphine Sulfate 5 mg PO Q4H PRN #30 ml PRN Reason: Moderate to Severe pain. Senna [Senokot] 8.6 mg PO BID PRN #10 tablet PRN Reason: Constipation OLANZapine ODT [Zyprexa Odt] 5 mg TL BID PRN #10 tablet PRN Reason: Nausea / Vomiting Diet: Soft (Pureed as tolerated) Activity Restrictions: Activity as Tolerated Health Concerns: The patient was admitted with an infected sacral decubitus ulcer. She went to the OR on 05/25/2024 for surgical debridement. She completed a course of antibiot ic therapy. She then developed respiratory failure due to heart failure. She was aggresively treated with IV lasix with some improvement. In spite of aggressive treatment the patient did not improve. Discussions were had with the patient's and she was transitioned to comfort measures. The patient has signs of stability after we withdrew care. She will still wake up and speak to her husb and several times a day. She is spending most of the day sleeping. She is not eating or drinking enough to sustain herself but will take a couple of bites of pudding and drink a little bit of water. After much discussion with the patient's he has decided to pursue home hospice. She will be discharged in poor but stable condition to continue hospice services at home. Assessment: 1. Acute respiratory failure with hypoxia Secondary to decompensated heart failure. In spite of aggressive diuresis the patient remained hypoxic. She initially was requiring quite a bit of oxygen however her oxygen requirements have decreased. She is stable on 2 L of oxygen. The patient's would like to continue oxygen at home at 2 L and hospice will be setting this up 2. Sacral decubitus ulcer stage III Status post debridement. Initially was infected. She completed a course of IV antibiotics during this hospitalization. Continue wound care at home with [facility] pice services 3. Acute diastolic congestive heart failure The patient was aggressively diuresed with IV Lasix. In spite of this she became her respiratory status worsened. She developed a contraction alkalosis from the IV Lasix however her chest x-ray is continued to worsen. Discussions were had with the patient's and she was not felt appropriate for intubation. She was transitioned to comfort measures. No further treatment at this point. 4. SLE No further treatment 5. Severe protein calorie malnutrition The patient was profoundly malnourished. She had significant anxiety regarding food. She developed increasing dysphagia and difficulty swallowing. She was placed on a pured diet and she was able to tolerate that. The patient wants to eat at home I would recommend a pured diet. At this juncture in time she is eating some bites of pudding and drinking some liquids but that is about it. 6. Permanent atrial fibrillation No further treatment or monitoring 7. Hypertension As above 8. Chronic prescription opiate use Will send the hospice meds to her pharmacy along with p.o. Dilaudid that she uses on a daily basis at home 9. Anxiety She will have olanzapine as part of her hospice meds 10. Elevated liver function test No further monitoring 11. Moderate major depression No further treatment 12. Anemia No further monitoring 13. Hypokalemia; hypomagnesemia These were aggressively repleted during this hospitalization. No further monitoring 14. Sarcopenia with significant ambulatory dysfunction The patient was largely bedbound prior to this hospitalization. She has a stage III decubitus ulcer which has been worsening. She has not walked in quite some time. She is at the end of life. No further PT or OT at this point. Comfort measures only study 15. Comfort measures only status The patient was transition to comfort measures in the hospital. would like to pursue home hospice services at discharge Follow-Up Care: Hospice No Smoking: If you smoke, Please STOP! Call for help.
--- NOTE | 2024-06-08 14:37 | DISCHARGE SUMMARY ---
Discharge Summary Admit Date: 05/24/24 Discharge Date: 06/09/24 Discharging Provider: Lela Miller PA-C Primary Care Provider: [facility] [place] [facility] Code Status: Do Not Attempt Resuscitation Condition at Discharge: Poor Discharge Disposition: 50 Hospice/Home DC/Xfer - DIAGNOSES Discharge Diagnoses with Status of Each Condition: 1. Acute respiratory failure with hypoxia Secondary to decompensated heart failure. In spite of aggressive diuresis the patient remained hypoxic. She initially was requiring quite a bit of oxygen however her oxygen requirements have decreased. She is stable on 2 L of oxygen. The patient's would like to continue oxygen at home at 2 L and hospice will be setting this up 2. Sacral decubitus ulcer stage III Status post debridement. Initially was infected. She completed a course of IV antibiotics during this hospitalization. Continue wound care at home with hospice services 3. Acute diastolic congestive heart failure The patient was aggressively diuresed with IV Lasix. In spite of this she became her respiratory status worsened. She developed a contraction alkalosis from the IV Lasix however her chest x-ray is continued to worsen. Discussions were had with the patient's and she was not felt appropriate for intubation. She was transitioned to comfort measures. No further treatment at this point. 4. SLE No further treatment 5. Severe protein calorie malnutrition The patient was profoundly malnourished. She had significant anxiety regarding food. She developed increasing dysphagia and difficulty swallowing. She was placed on a pured diet and she was able to tolerate that. The patient wants to eat at home I would recommend a pured diet. At this juncture in time she is eating some bites of pudding and drinking some liquids but that is about it. 6. Permanent atrial fibrillation No further treatment or monitoring 7. Hypertension As above 8. Chronic prescription opiate use Will send the hospice meds to her pharmacy along with p.o. Dilaudid that she uses on a daily basis at home 9. Anxiety She will have olanzapine as part of her hospice meds 10. Elevated liver function test No further monitoring 11. Moderate major depression No further treatment 12. Anemia No further monitoring 13. Hypokalemia; hypomagnesemia These were aggressively repleted during this hospitalization. No further monitoring 14. Sarcopenia with significant ambulatory dysfunction The patient was largely bedbound prior to this hospitalization. She has a stage III decubitus ulcer which has been worsening. She has not walked in quite some time. She is at the end of life. No further PT or OT at this point. Comfort measures only study 15. Comfort measures only status The patient was transition to comfort measures in the hospital. would like to pursue home hospice services at discharge - HPI History of Present Illness: From the admission HP: Mrs. Vallecillo is a pleasant 78yoF that presented with a history of atrial fibrillation. She presented to the ED for evaluation of worsening sacral wound. She has been less mobile due to right hip which requires replacement. She st arted to develop some skin breakdown in her sacral area a few weeks prior to presentation.when it did not heal she went to urgent care for evaluation.It has quickly progressed from stage I to stage III in the past few weeks. she has surround area of cellulitis and drainage from the wound. In the Ed, patient vitals were stable, she was afebrile and normatensive. CT was obtained adn was negative for abscess formation or osteomylitis. she was started on antibiotics. Ed physician spoke with general surgeon miguel , who agreed to see in consultation. during my evaluation, patient was not in any acute distress. was present at bedside during my interview.this visit was performed using real-time telehealth tools, including live video. Informed consent was obtained to proceed with this visit using the available tele-health modalities. - HOSPITAL COURSE Hospital Course: The patient was admitted with an infected sacral decubitus ulcer. She went to the OR on 05/25/2024 for surgical debridement. She completed a course of antibiotic therapy. She then developed respiratory failure due to heart failure. She was aggresively treated with IV lasix with some improvement. In spite of aggressive treatment the patient did not improve. Discussions were had with the patient's and she was transitioned to comfort measures. The patient has signs of stability after we withdrew care. She will still wake up and speak to her several times a day. She is spending most of the day sleeping. She is not eating or drinking enough to sustain herself but will take a couple of bites of pudding and drink a little bit of water. After much discussion with the patient's he has decided to pursue home hospice. She will be discharged in poor but stable condition to continue hospice services at home. - ALLERGIES Allergies/Adverse Reactions: Allergies Allergy/AdvReac Type Severity Reaction Status Date / Time prochlorperazine edisylate * Allergy Severe Unknown Verified 05/24/24 18:02 [From Compazine] prochlorperazine Allergy Unknown Verified 05/24/24 18:02 [From Compazine] prochlorperazine maleate * Allergy Unknown Verified 05/24/24 18:02 [From Compazine] codeine AdvReac Severe Emesis Verified 05/24/24 18:02 hydrocodone AdvReac Nausea Verified 05/24/24 18:02 monosodium glutamate AdvReac Emesis Verified 05/24/24 18:02 oxycodone AdvReac Emesis Verified 05/24/24 18:02 - MEDICATIONS Home Medications: Ambulatory Orders Medication Instructions Recorded Confirmed Bisacodyl Supp [Dulcolax Supp] 10 mg [place] DAILY PRN #3 supp 06/08/24 HYDROmorphone [Dilaudid] 2 mg PO Q4H #30 tablet 06/08/24 LORazepam [Ativan] 0.5 mg PO Q6H PRN #10 tablet 06/08/24 Morphine Sulfate 5 mg PO Q4H PRN #30 ml 06/08/24 OLANZapine ODT [Zyprexa Odt] 5 mg TL BID PRN #10 tablet 06/08/24 Senna [Senokot] 8.6 mg PO BID PRN #10 tablet 06/08/24 - PHYSICAL EXAM AT DISCHARGE General Appearance: positive: Other (The patient is sleeping and not arousable at the time of my visit) Eyes Bilateral: positive: Other (Could not be examined) ENT: positive: Dry mucous membranes Respiratory: positive: Other (She has some scattered coarse rhonchi anteriorly) Cardiovascular: positive: Irregularly irregular Abdomen: positive: Other (Extremely thin. I am not hearing much in the way of bowel sounds) Skin: positive: Color nml, No rash, Warm, Dry Extremities: positive: Other (Significant muscle wasting and fat loss throughout all 4 extremities) Neurologic/Psychiatric: positive: Other (Could not assess today) - LABS Result Diagrams: 06/03/24 08:16 06/03/24 04:25 - SEPSIS Current Stage of Sepsis: Ruled out - FOLLOW UP Follow Up: Hospice will be assuming her care - TIME SPENT Time Spent in Discharge (Minutes): 45
--- NOTE | 2024-06-08 15:02 | PROVIDER PROGRESS NOTE ---
Subjective - Prog Note Date Prog Note Date: 06/08/24 Prog Note Time: 15:00 - Subjective Pt reports feeling: No change Subjective: The patient was not responsive at the time of my visit. She still is waking up at times but spending most of the day sleeping. is decided to take her home with the hospice services. She will be discharged tomorrow morning. Review of systems could not be obtained from the patient Current Medications - Current Medications Current Medications: Active Medications Generic Name Dose Route Start Last Admin Trade Name Freq PRN Reason Stop Dose Admin Glycopyrrolate 0.2 mg 06/03/24 11:21 Glycopyrrolate 1 Mg/5 Ml Vial SUBQ Q4H PRN Excessive secretions Haloperidol 0.5 mg 06/03/24 11:21 Haloperidol 5 Mg/Ml Vial IVP Q6H PRN Nausea / Vomiting Haloperidol 0.5 mg 06/03/24 11:21 Haloperidol 5 Mg/Ml Vial IVP Q2H PRN Agitation Hydromorphone HCl 1 mg 06/03/24 15:01 06/08/24 12:40 Hydromorphone 1 Mg/Ml Carpuject IVP 1 mg Q2HR PRN Administration Severe Pain (Level 7-10) Lorazepam 1 mg 06/03/24 11:21 Lorazepam 2 Mg/Ml Vial IVP Q6H PRN Anxiety/Agitation Metoclopramide HCl 10 mg 06/03/24 11:21 06/07/24 20:55 Metoclopramide 10 Mg/2 Ml Vial IVP 10 mg QID PRN Administration Nausea / Vomiting Morphine Sulfate 4 mg 06/03/24 15:03 06/07/24 06:46 Morphine 2 Mg/Ml Carpuject IVP 4 mg Q1H PRN Administration Severe Pain (Level 7-10)/ SOA Objective - Vital Signs/Intake & Output Reviewed Vital Signs: Yes Intake & Output: Intake & Output 06/05/24 06/06/24 06/07/24 06/08/24 23:59 23:59 23:59 23:59 Intake Total 120 500 290 25 Output Total 300 800 100 200 Balance -180 -300 190 -175 - Objective General Appearance: positive: Other (The patient is not responsive as of the time of my visit) ENT: positive: Other (Bitemporal muscle wasting bilaterally) Respiratory: positive: Other (Scattered coarse rhonchi) Cardiovascular: positive: Irregularly irregular Abdomen: positive: Other (I am not hearing much in the way of bowel sounds) Skin: positive: Color nml, No rash, Warm, Dry Extremities: positive: Other (Significant muscle wasting and fat loss in all 4 extremities) Neurologic/Psychiatric: positive: Oriented x3, CN's nml (2-12) - Lab Results Fish Bones: 06/03/24 08:16 06/03/24 04:25 ABX Reporting Has patient been on IV antibiotics over the past 48 hours?: No Sepsis Event Note (H) - Evaluation Current Stage of Sepsis: Ruled out Assessment/Plan - Problem List (1) Acute respiratory failure with hypoxia Impression: Continue 2 L of oxygen (2) Sacral decubitus ulcer, stage III Impression: Continue wound care (3) Acute diastolic (congestive) heart failure Impression: No further treatment (4) SLE (systemic lupus erythematosus) Impression: No further treatment (5) Severe protein-calorie malnutrition Impression: Pleasure feeds (6) Permanent atrial fibrillation Impression: No further treatment (7) Hypertension Impression: No further treatment (8) Chronic prescription opiate use Impression: She has Roxanol and IV Dilaudid available as needed (9) Anxiety Impression: She has appropriate medications in place (10) Elevated liver function tests Impression: No further labs (11) Moderate major depression Impression: No further treatment (12) Anemia Impression: No further labs (13) Hypokalemia Impression: No further labs (14) Hypomagnesemia Impression: As above (15) Sarcopenia Impression: With significant ambulatory dysfunction. She is bedbound (16) Comfort measures only status Impression: The patient remains on comfort measures. She has been slow to progress but clearly is actively dying. She still is having moments when she wakes up and is enjoying talking to her . She will take a bite or 2 of pudding and sometimes drink a sip or 2 of water but clearly not eating or drinking enough to sustain herself. The patient's would like to continue comfort measures and she will be going home tomorrow with home hospice services Time spent: 35 minutes
[2024-06-09 07:38] VITALS: BP 146/101; O2SAT 97
== END 2024-06-09 09:20 | disposition hospice, home (50) | DRG 570 ==
LOC: ED 17:50 → MS2 21:32 → OBSVTOIN 05-25 12:31 → ICU 06-02 21:34 → MS2 06-03 17:40
PROVIDERS: ADMIT Hospitalist; ATTEND Physician Assistant
PROC: 0JB70ZZ Excision of Back Subcutaneous Tissue and Fascia, Open Approach (ICD-10-PCS; principal; 2024-05-25 14:00)
DX: L89.153 Pressure ulcer of sacral region, stage 3 (principal); E43 Unspecified severe protein-calorie malnutrition; I50.9 Heart failure, unspecified; I48.91 Unspecified atrial fibrillation; R06.02 Shortness of breath; J96.01 Acute respiratory failure with hypoxia; E46 Unspecified protein-calorie malnutrition; I50.31 Acute diastolic (congestive) heart failure; I48.21 Permanent atrial fibrillation; L03.312 Cellulitis of back [any part except buttock and flank]; M32.9 Systemic lupus erythematosus, unspecified; F41.9 Anxiety disorder, unspecified; R13.10 Dysphagia, unspecified; I11.0 Hypertensive heart disease with heart failure; R79.89 Other specified abnormal findings of blood chemistry; F32.9 Major depressive disorder, single episode, unspecified; E87.6 Hypokalemia; E83.42 Hypomagnesemia; I25.10 Atherosclerotic heart disease of native coronary artery without angina pectoris; I25.2 Old myocardial infarction; M19.90 Unspecified osteoarthritis, unspecified site; G89.29 Other chronic pain; M54.9 Dorsalgia, unspecified; D64.89 Other specified anemias; I34.0 Nonrheumatic mitral (valve) insufficiency; Z20.822 Contact with and (suspected) exposure to COVID-19; Z51.5 Encounter for palliative care; Z66 Do not resuscitate; Z68.22 Body mass index [BMI] 22.0-22.9, adult; Z74.01 Bed confinement status; Z78.1 Physical restraint status; Z79.01 Long term (current) use of anticoagulants; Z79.891 Long term (current) use of opiate analgesic; Z79.899 Other long term (current) drug therapy; Z86.73 Personal history of transient ischemic attack (TIA), and cerebral infarction without residual deficits
CPT/HCPCS: 36415; 71045; 71046; 74177; 80048; 80053; 80069; 80076; 80202; 82330; 82803; 83605; 83735; 83880; 84100; 84145; 85018; 85025; 85610; 85651; 85730; 86140; 87040; 87070; 87075; 87076; 87150; 87635; 93005; 93307; 94640; 94660; 96365; 96366; 96367; 96368; 99285; A6250; A9270; G0378; J1170; J1650; J2060; J2765; J3370; J3490; J7120; J8499; Q9967; J3475

== ENCOUNTER 2024-05-31 08:00 | Outpatient (CLI) | payer MEDICARE, OTHER | END 2024-05-31 23:59 | disposition home or self-care (01) | LOC: PC 08:00 | PROVIDERS: ATTEND Nurse Practitioner Adult Health | DX: Z53.9 Procedure and treatment not carried out, unspecified reason (principal) ==

== ENCOUNTER 2024-06-09 09:15 | Outpatient (CLI) | payer MEDICARE, OTHER | END 2024-06-09 09:16 | disposition hospice, home (50) | LOC: EMS 09:15 | PROVIDERS: ATTEND Physician Assistant | DX: Z51.5 Encounter for palliative care (principal); Z99.81 Dependence on supplemental oxygen | CPT/HCPCS: A0425; A0428 ==